=== PATIENT | male | born 1940 | race Caucasian/White ===

== ENCOUNTER 2020-12-04 13:30 | Inpatient (IN) | payer MEDICARE ==
[~2020-12-04] VITALS: Ht 182.9 cm; Wt 103.6 kg
[2020-12-04] MEDS ORDERED: MELATONIN 3 MG TABLET PO PRN (14:15)
[2020-12-04] MEDS ORDERED: ACETAMINOPHEN 500 MG TAB (TYLENOL) PO PRN (14:15)
[2020-12-04] MEDS ORDERED: ENOXAPARIN 40 MG/0.4 ML (LOVENOX) SYR SC SCH (14:15)
[2020-12-04] MEDS ORDERED: LOPERAMIDE 2 MG (IMODIUM) TABLET PO PRN (14:15)
[2020-12-04] MEDS ORDERED: ALPRAZolam 0.25 MG (XANAX) TAB PO PRN (14:15)
[2020-12-04] MEDS ORDERED: CALCIUM CARBONATE 500 MG (TUMS) TAB.CHEW PO PRN (14:15)
[2020-12-04] MEDS ORDERED: BISACODYL 10 MG SUPP (DULCOLAX) PR PRN (14:15)
[2020-12-04] MEDS ORDERED: ONDANSETRON 4 MG (ZOFRAN) ORAL DISSOLVE TAB PO PRN (14:15)
[2020-12-04] MEDS ORDERED: LACTULOSE SYRUP 10GM/15ML (ENULOSE) 30ML UDC PO PRN (14:15)
[2020-12-04] MEDS ORDERED: DOCUSATE SODIUM 100 MG (COLACE) CAP PO PRN (14:15)
[2020-12-04] MEDS ORDERED: guaiFENesin/CODEINE (ROBITUSSIN AC) 10ML UDC PO PRN (14:15)
[2020-12-04] MEDS ORDERED: diphenhydrAMINE 25 MG TAB (BENADRYL) PO PRN (14:15)
[2020-12-04] MEDS ORDERED: FLEET ENEMA ADULT 1 EA BTL PR PRN (14:15)
[2020-12-04] MEDS ORDERED: INSU100V39 SQ (14:24)
[2020-12-04] MEDS ORDERED: ATOR20TA66 PO (14:24)
[2020-12-04] MEDS ORDERED: PANT40TA52 PO (14:24)
[2020-12-04] MEDS ORDERED: ASCO500C17 PO (14:24)
[2020-12-04] MEDS ORDERED: GABA-486 PO (14:24)
[2020-12-04] MEDS ORDERED: SODI104S3 NS (14:24)
[2020-12-04] MEDS ORDERED: APIX5TAB PO (14:24)
[2020-12-04] MEDS ORDERED: INSU100V6 SQ ×2 (14:24)
[2020-12-04] MEDS ORDERED: FLUT9.9S NS (14:24)
[2020-12-04] MEDS ORDERED: MAGIC MOUTHWASH PO (14:24)
[2020-12-04] MEDS ORDERED: SALI473M2 MM (14:24)
[2020-12-04] MEDS ORDERED: OXC5T PO ×2 (14:24)
[2020-12-04] MEDS ORDERED: CHOL10007 PO (14:24)
[2020-12-04] MEDS ORDERED: FINA5TAB6 PO (14:24)
[2020-12-04] MEDS ORDERED: ACET325C7 PO (14:24)
[2020-12-04] MEDS ORDERED: ASPI-999 PO (14:24)
[2020-12-04] MEDS ORDERED: UBID200C31 PO (14:24)
[2020-12-04] MEDS ORDERED: IPRA3AMP31 IH (14:24)
[2020-12-04] MEDS ORDERED: FLUT1BLS3 IH (14:24)
[2020-12-04] MEDS ORDERED: PRD10T PO (14:24)
[2020-12-04] MEDS ORDERED: TMSL.4C PO (14:24)
[2020-12-04] MEDS ORDERED: ACET-2650 PO (14:24)
[2020-12-04 15:22] VITALS: BP 149/81
--- NOTE | 2020-12-04 15:27 | Physical Therapy Evaluation ---
PT Evaluation-General Medical Diagnosis Admission Date 12/04/2020 Medical Diagnosis: critical illness myopathy Onset Date: Dec 04, 2020 Therapy Diagnosis Therapy Diagnosis: weakness; abn gait Precautions Precautions/Isolations: Standard Precautions Referral Physician: Juancho Reason for Referral: Evaluation/Treatment Medical History Pertinent Medical History: COPD, DM, GERD Additional Medical History RLS, HLD, hpoxia, sleep apnea, acute respiratory failure, shoulder fx left recently; TSR R 3-5 years ago. Current History COVID dx 10/08/2020 Lengthy hospital course that started in [facility] and his last destination was LTAC in [place], [place]. Admitted to this facility for continued medical management and skilled therapy services. Reviewed History: Yes Social History Home: Multilevel Current Living Status: Alone Entry Into Home: Stairs With Railing PT Steps Into Home: 6 PT Steps Inside Home: 12 Prior Prior Level of Function SCALE: Activities may be completed with or without assistive devices. 1-Izviueqcsd-tbguouj completes the activity by him/herself with no assistance from a helper. 5-Set-up or Clean-up Assistance-helper sets up or cleans up; patient completes activity. [place] assists only prior to or following the activity. 4-Supervision or Touching Assistance-helper provides verbal cues and/or touching/steadying and/or contact guard assistance as patient completes activity. Assistance may be provided throughout the activity or intermittently. 3-Partial/Moderate Assistance-helper does LESS THAN HALF the effort. [place] lifts, holds or supports trunk or limbs, but provides less than half the effort. 2-Substantial/Maximal Assistance-helper does MORE THAN HALF the effort. [place] lifts or holds trunk or limbs and provides more than half the effort. 5-Fullnsxrk-pnnsil does ALL the effort. Patient does none of the effort to complete the activity. Or, the assistance of 2 or more helpers is required for the patient to complete the activity. If activity was not attempted, code reason: 7-Patient Refused. 9-Not Applicable-not attempted and the patient did not perform the activity before the current illness, exacerbation or injury. 10-Not Attempted due to Environmental Limitations-(lack of equipment, weather restraints, etc.). 88-Not Attempted due to Medical Conditions or Safety Concerns. Bed Mobility: 6 Transfers (B,C,W/C): 6 Gait: 6 Stairs: 6 Indoor Mobility (Ambulation): Independent Stairs: Independent Independent with all mobility, drives, community ambulator. PT Evaluation-Current Subjective Pt reports he is ready to get better and get stronger. Agrees to PT services this date. Alert and able to provide history and details. Denies pain. Reports he does feel tired. Pain Numeric Pain Scale: 0-No Pain Location: No Pain Reported Pt/Family Goals His goal is to return home alone as before. Objective Patient Orientation: Person, Place, Time, Situation Attachments: Oxygen (4 l/min via nasal cannula) ROM/Strength ROM Lower Extremities WFL Strength Lower Extremities B LE strength is grossly 3/5 throughout. Integumentary/Posture Integumentary Refer to nursing notes for full assessment. Bowel Incontinence: No Bladder Incontinence: Yes Posture Symmetrical; slightly rounded shoulders and forward head. Neuromuscular (Tone, Coordination, Reflexes) Intact and functional Sensory Vision: Functional Hearing: Functional Hand Dominance: Right Sensation Right Lower Extremit: Intact Sensation Left Lower Extremity: Intact Transfers Roll Left & Right (QC): 2 Sit to Lying (QC): 3 (min assist to guide) Lying to Sitting/Side of Bed(Q: 2 (mod to max assist to lift torso to sit up. ) Sit to Stand (QC): 1 (Assist of 2 to come to a full stand. ) Chair/Qfa-vv-Kftwr Xfer(QC): 1 (dependent with use of sit to stand lift. ) Toilet Transfer (QC): 1 Car Transfer (QC): 88 (unsafe to attempt due to heavy need for assist. ) Sit to stand x 2; able to stand for about 10 seconds. Gait Does the Patient Walk?: No and Walking Goal IS indicated Mode of Locomotion: Walk Anticipated Mode of Locomotion: Walk Walk 10 feet (QC): 88 Walk 50 ft with 2 Turns(QC): 88 Walk 150 ft (QC): 88 Walking 10ft/uneven surface-QC: 88 Comments/Gait Description Unsafe to attempt ambulation this date. Wheelchair Training Does the Pt Use a Wheelchair?: No Wheel 50 ft with 2 turns (QC): 9 Wheel 150 ft (QC): 9 Stairs 1 Step (curb) (QC): 88 4 Steps (QC): 88 12 Steps (QC): 88 Balance Sitting Static: Fair Standing Static: Poor Standing Dynamic: Poor Picking up an Object (QC): 88 Treatment Co treat with OT due to need for skill of 2 clinicians to manage all needs. Pt requires 2 skilled assist to functional transfers, completion of tasks and management of UE, LE, functional balance and sequencing to complete tasks. OT addressed UE use and placement as well as sequencing as PT addressed LE managment and gross functional balance. Pt transisition supt to from sit; sat EOB for 20 minutes and performed sit to stand tasks; in addition, OT addressed ADL tasks in which PT addressed core balance and tolerance as this was done. Pt in bed post treatment with needs met. O2 sats monitored throughout and he was on 4 l/min with sats greater than 90% throughout Assessment/Needs Pt presents post very lengthy hospital course due to Dx of COVID 19. He has gross strength, balance, activity toelrance deficits and is O2 dependent. He requires heavy assist with all functional mobility and is currently requiring 2 skilled clinicians to complete all tasks. He was indep at [facility]. He is very motivated and did tolerate this date of evaluation and treatment well. He is SOA with exertion, but recovers fairly quickly. He will benefit from skilled therapy services to improve all deficits to allow him to return home as before. He has good potential. Rehab Potential: Good PT Short Term Goals Short Term Goals Time Frame: Dec 11, 2020 Roll Left & Right: 4 Sit to lyin Lying to sitting on side of be: 4 Sit to stand: 3 Chair/jqx-kj-fjmue transfer: 3 Walk 10 feet: 3 Walk 50 feet with two turns: 3 PT [facility] Goals Animal Trainer Goals PT Animal Trainer Goals Time Frame: Jan 01, 2021 Roll Left & Right (QC): 6 Sit to Lying (QC): 6 Lying-Sitting on Side/Bed(QC): 6 Sit to Stand (QC): 6 Chair/Xqq-ra-Twivj Xfer(QC): 6 Toilet Transfer (QC): 6 Car Transfer (QC): 6 Does the Patient Walk: No and Walking Goal IS indicated Walk 10 feet (QC): 6 Walk 50ft with 2 Turns (QC): 6 Walk 150 ft (QC): 6 Walking 10ft on Uneven Surface: 4 1 Step (curb) (QC): 4 4 Steps (QC): 4 12 Steps (QC): 4 Picking up an Object (QC): 5 Does the Pt use WC or Scooter?: No Wheel 50 feet with 2 turns (QC: 9 Wheel 150 feet: 9 PT Plan Problem List Problem List: Activity Tolerance, Functional Strength, Safety, Balance, Gait, Transfer, Bed Mobility Treatment/Plan Treatment Plan: Continue Plan of Care Treatment Plan: Bed Mobility, Education, Functional Activity Erick, Functional Strength, Group Therapy, Gait, Safety, Therapeutic Exercise, Transfers Treatment Duration: Jan 01, 2021 Frequency: At least 5 of 7 days/Wk (IRF) Estimated Hrs Per Day: Other (see notation) Patient and/or Family Agrees t: Yes Due to a COVID -19 viral infection, the patient has deficits that warrant inpatient acute rehab. The patient will clearly benefit from intensive PT and OT; however, due to the patient's observed endurance and therapy considerations, he may not be able to tolerate the full 3 hours of scheduled therapy. Therefore, he will be scheduled for as much therapy as he can tolerate with the intentional rest breaks, shortened sessions, including providing therapy across 6-7 days. As the patient tolerates, the intensity, frequency and duration of his therapy program will be increased. Safety Risks/Education Patient Education: Transfer Techniques, Safety Issues Teaching Recipient: Patient Teaching Methods: Demonstration, Discussion Response to Teaching: Reinforcement Needed Discharge Recommendations Therapy Discharge Recommendati: Post Acute PT Time/GCodes Time In: 1525 Time Out: 1535 (0179-3539 (co treat with OT)) Total Billed Treatment Time: 65 Total Billed Treatment visit EVM 10 FA 55 (co treat with OT) BRITNEY PACHECO PT Dec 04, 2020 15:27
--- NOTE | 2020-12-04 15:29 | Occupational Therapy Eval ---
OT Evaluation-General/PLF Medical Diagnosis Admission Date 12/04/20, 315 Medical Diagnosis: Critical Illness Myopathy Onset Date: Oct 08, 2020 Therapy Diagnosis Therapy Diagnosis: Decreased ADL status; post-COVID Precautions Precautions/Isolations: Standard Precautions Weight Bear Status Weight Bearing Restriction: Weight Bearing/Tolerated Referral Physician: Juancho Referral Reason: Activity Tolerance, Self Care, Evaluation/Treatment, Strengthening/ROM Medical History Additional Medical History COV 19, PNA, COPD, emphysema, RICHY, HTN, DM2, CTS BUE, LLE DVT states tripped/ fell and broke L arm April 2020. Current History Pt dx COVID 10/08, 10/12-10/22 hospitalized, returned home with 5L and ED called with 02 in 50's at home. Hospitalized since, admits to ARU 12/04 Reviewed History: Yes Social History Home: Multilevel Current Living Status: Alone Entry Into Home: Stairs Without Railing Steps Into Home: 6 (no hand rail) Steps Inside Home: 12 states lives alone, has son in town though son is trucking manager and out of town. upstairs bathroom with tub/ shower with sc, no gbs. (12 stairs to get to tub/ shower and to bedroom) ADL-Prior Level of Function SCALE: Activities may be completed with or without assistive devices. 6-Myculdjmwc-ogfjjoe completes the activity by him/herself with no assistance from a helper. 5-Set-up or Clean-up Assistance-helper sets up or cleans up; patient completes activity. [place] assists only prior to or following the activity. 4-Supervision or Touching Assistance-helper provides verbal cues and/or touching/steadying and/or contact guard assistance as patient completes activity. Assistance may be provided throughout the activity or intermittently. 3-Partial/Moderate Assistance-helper does LESS THAN HALF the effort. [place] lifts, holds or supports trunk or limbs, but provides less than half the effort. 2-Substantial/Maximal Assistance-helper does MORE THAN HALF the effort. [place] lifts or holds trunk or limbs and provides more than half the effort. 0-Zipdolmgn-tkjkae does ALL the effort. Patient does none of the effort to complete the activity. Or, the assistance of 2 or more helpers is required for the patient to complete the activity. If activity was not attempted, code reason: 7-Patient Refused. 9-Not Applicable-not attempted and the patient did not perform the activity before the current illness, exacerbation or injury. 10-Not Attempted due to Environmental Limitations-(lack of equipment, weather restraints, etc.). 88-Not Attempted due to Medical Conditions or Safety Concerns. ADL PLOF Comments Pt IND without use of AD. Self Care: Independent Functional Cognition: Independent DME/Equipment Comments Pt has toilet/ sink downstairs bathroom, upstairs bathroom has shower. 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 Drive Self: Yes OT Current Status Subjective Pt AxO, denies pain. Pt is brought in with stretcher, assisted to bed with TD. Pt agrees to tx. Pleasant throughout. OT evaluation: 1434-5802 (10) PT evaluation: [id number] OT/ PT co-treat: [id number] (55): Co-treat rendered at this time. OT addresses UE movement and ADL status, sitting balance, problem solving while PT addresses LE strength/ mobility, fx transfers, and gross motor abilities. Mental Status/Objective Patient Orientation: Person, Place, Situation, Normal For Age Attachments: Oxygen (3.5L) Current Glasses/Contacts: Yes Hearing Aids: No Dentures/Partials: Yes (uppers only- lost lowers. Not wearing at this time.) Hand Dominance: Right Upper Extremity ROM R WFL L: shoulder limited to ~45*, states fall in April resulting in humeral head fx, states never recovered fully. Denies pain. Distal joints WFL. Upper Extremity Coordination WFL BUE Upper Extremity Sensation T/N ulnar distribution (4th/ 5th digits bilaterally) denies CTS sx Upper Extremity Strength WFL RUE L (elbow/ wrist/ hand WFL, shoulder DNT due to limited mobility) Edema: pitting BLE, slight pitting BUE ADL-Treatment Eating (QC): 6 Oral Hygiene (QC): 88 (does not complete due to pt's lack of dentation, denies oral care. ) Shower/Bathe Self (QC): 7 (denies at this time. ) Upper Body Dressing (QC): 7 (denies at this time, though per pt report able to complete with s/u) Lower Body Dressing (QC): 1 (based on pt's ability to sit to stand (max Ax2), pt will require Ax2 (TD) for pant donning if completing in stance. ) On/Off Footwear (QC): 4 (CGA EOB doffing/ donning BLE socks) Toileting Hygiene (QC): 1 (per clinical judgment and need of Ax2 in stance, pt will be TD at this time. ) Other Treatments Pt is weighed and BP assessed: 149/81. Pt completes evaluations as follows: OT evaluation: 2914-7161 (10) PT evaluation: 5267-9091 OT/ PT co-treat: [id number] (55): Co-treat rendered at this time. OT addresses UE movement and ADL status, sitting balance, problem solving while PT addresses LE strength/ mobility, fx transfers, and gross motor abilities. Pt reaches EOB from slight reclined position with CGA. Pt sits EOB for remainder of session, excluding sit to stand attempts. Pt's balance EOB good. Pt able to raise BUE off bed, no LOB. Pt denies dizziness/ pain throughout. Pt completes reaching/ LB dressing tasks as outlined, cues for breathing through nose intermittently through tx. Pt educated on use of AD for energy conservation and breathing cues while in bent position.Pt sit to stand with max A x2 from raised bed, pt stands ~5 sec with max A, returns to sit. Pt SOB, recovers and 02 WFL. Pt sit to stand with max Ax2 once more, attempt side-stepping though able to stand minimally. Pt returns to sit, completes seated activity, sit to supine with SBA. Pt reaches HOB with max Ax2, is introduced to room and therapy roles/ plans for tx. Pt denies needs, call light in reach, pt in bed with HOB elevated and 02 WFL end of tx. Education OT Patient Education: Correct positioning, Disease process, Energy conservation, Modified ADL techniques, Purpose of tx/functional activities, Rehab process, Safety issues, Transfer techniques, Use of adapted equipment Teaching Recipient: Patient Teaching Methods: Demonstration, Discussion Response to Teaching: Verbalize Understanding, Return Demonstration, Reinforcement Needed OT Short Term Goals Short Term Goals Time Frame: Dec 11, 2020 Eatin Oral hygiene: 88 Toileting hygiene: 2 Shower/bathe self: 3 Upper body dressin Lower body dressin Putting on/taking off footwear: 6 OT Finish Off Operator Goals Finish Off Operator Goals Time Frame: Dec 25, 2020 Eating (QC): 6 Oral Hygiene (QC): 6 Toileting Hygiene (QC): 5 Shower/Bathe Self (QC): 5 Upper Body Dressing (QC): 6 Lower Body Dressing (QC): 4 On/Off Footwear (QC): 6 Additional Goals: 1-Demonstrate ADL Tasks, 2-Verbalize Understanding, 3- ImproveStrength/Erick 1=Demonstrate adherence to instructed precautions during ADL tasks. 2=Patient will verbalize/demonstrate understanding of assistive devices/modifi cations for ADL. 3=Patient will improve strength/tolerance for activity to enable patient to perform ADL's. OT Education/Plan Problem List/Assessment Assessment: Decreased Activ Tolerance, Decreased UE Strength, Dependent Transfers, Edema, Impaired Bed Mobility, Impaired Funct Balance, Impaired I ADL's, Impaired Self-Care Skills, Restricted Funct UE ROM Discharge Recommendations Plan/Recommendations: Continue POC Therapy Discharge Recommendati: Scheduled Assistance, Post Acute OT Equpiment Recommendations-D/C: Extended Bath Bench, Rails on Tub/Shower Comment Pt did not d/c with walker. Treatment Plan/Plan of Care Treatment,Training & Education: Yes Patient would benefit from OT for education, treatment and training to promote independence in ADL's, mobility, safety and/or upper extremity function for ADL's. Plan of Care: ADL Retraining, Caregiver Training, Concurrent Therapy, Functional Mobility, Group Exercise/Act as Ind, UE Funct Exercise/Act, UE Neuromus Re-Ed/Coord, W/C Management Training Treatment Duration: Dec 25, 2020 Frequency: Modified Program (IRF) Estimated Hrs Per Day: 1 hour per day Agreement: Yes Rehab Potential: Fair Due to a COVID-19 viral infection, the pt has deficits that warrant inpt acute rehab. The pt will benefit from intensive OT/ PT , however, due to the pt's observed endurance and therapy considerations, he may not be able to tolerate the full 3 hours of scheduled therapy. Therefore, he will be scheduled for as much therapy as he can tolerate with intentional rest breaks, shortened sesion, including providing therapy across 6-7 days. As the pt tolerates, the intensity, frequency, and duration of his therapy program will be increased Time/GCodes Start Time: 15:15 Stop Time: 16:30 Total Time Billed (hr/min): 65 Billed Treatment Time OT evaluation: [id number] (10) PT evaluation: 3260-6495 OT/ PT co-treat: [id number] (55): Co-treat rendered at this time. OT addresses UE movement and ADL status, sitting balance, problem solving while PT addresses LE strength/ mobility, fx transfers, and gross motor abilities. 1, EVM (10) 1, ADL (15), FA 3 (40)= 55 Total: 65 CHAPARRO GOLDEN OTR Dec 04, 2020 15:29
[2020-12-04] MEDS ORDERED: RT-ALBUTEROL/IPRATROPIUM 3 ML (DUONEB) VIAL IH PRN (18:00)
[2020-12-04] MEDS ORDERED: NON-FORMULARY MEDICATION 1 EA EA ([Magic Mouthwash] 5 ML) PO PRN (18:00)
[2020-12-04] MEDS ORDERED: NON-FORMULARY MEDICATION 1 EA EA (Acetaminophen (Tylenol Arthritis) 650 MG) PO PRN (18:00)
--- NOTE | 2020-12-04 18:01 | PM&R Post Admission Assessment ---
PM&R HP Date of Visit: Dec 04, 2020 Time of Visit: 18:30 History of Present Illness CC: Recovery from Covid HPI: This is an 81yoWM who arrives from [facility] after suffering from Covid-19 pneumonia on 10/08 with acute on-chronic heart failure, COPD, RICHY and had pneumonia when IV antibiotics were completed on 11/07/21. He has history also of HTN, DM, Vitamin D deficiency, Herpes oral lesions, and significant compromise Im oxygenation with any type of activity. He remains on 6 liters of oxygen, his prior level of functioning was independent without the use of assistive devices and now his current level of functioning is minimal assistance in bed mobility, max to dependent on transfers and the plan would be to discharge home after recovery. He lives alone and his children are in [place], [place] and he worked on the [employer] for 30 years prior to DC. RT will set up his CPAP. Patient was admitted to the ARU during this COVID-19 emergency. The ARU is the best and most appropriate post-acute care setting for this patient at this current time. Patient meets IRF admission criteria, however will be unable to tolerate 3 hours of therapy/5 days per week. Provide specific plan, such as: This patients individualized intensive rehabilitation plan is to receive 2 hours of therapy per day, by receiving 1 hour of PT and 1 hour of OT 5 out of 7 days per the patients week. As an interdisciplinary team, we will discuss this patients ability to tolerate an increase in the intensity of therapy to be provided throughout the patients stay. Past Lagkysh-Gwdczk-Dvhfkr Hx Past Med/Social Hx: Reviewed Nursing Past Med/Soc Hx, Reviewed and Corrections made Patient Social History Marrital Status: single Employed/Student: retired ([employer] 30 years) Alcohol Use: Denies Use Smoking Status: Former Smoker Past Medical History Respiratory: Pneumonia, Sleep Apnea COVID-19 Currently Using CPAP: Yes Currently Using BIPAP: No Cardiac: High Cholesterol, Hypertension Neurological: Neuropathy Musculoskeletal: Arthritis Endocrine: Diabetes, Insulin dep Prior Level of Function Bed Mobility: 6 Transfers: 6 Gait: 6 Stairs: 6 Indoor Mobility (Ambulation): Independent Stairs: Independent Self Care: Independent Functional Cognition: Independent Occupation: retired. Drive Self: Yes Current Level of Fuctioning Roll Left to Right: 2 Sit to Lyin Lying to Sitting/Side of Bed: 2 (mod to max assist to lift torso to sit up. ) Sit to Stand: 1 (Assist of 2 to come to a full stand. ) Chair/Sfe-bi-Timnw Xfer: 1 (dependent with use of sit to stand lift. ) Car Transfer: 88 (unsafe to attempt due to heavy need for assist. ) Does the Patient Walk: No and Walking Goal IS indicated Mode of Locomotion: Walk Anticipated Mode of Locomotion: Walk Walk 10 feet: 88 Walk 50 ft with 2 Turns: 88 Walk 150 ft: 88 Walking 10ft on uneven surface: 88 Does the Pt Use a Wheelchair: No Wheel 50 ft with 2 turns: 9 Wheel 150 ft: 9 1 Step (curb): 88 4 Steps: 88 12 Steps: 88 Picking up an Object: 88 Eatin Oral Hygiene: 88 (does not complete due to pt's lack of dentation, denies oral care. ) Shower/Bathe Self: 7 (denies at this time. ) Upper Body Dressin (denies at this time, though per pt report able to complete with s/u) Lower Body Dressin (based on pt's ability to sit to stand (max Ax2), pt will require Ax2 (TD) for pant donning if completing in stance. ) On/Off Footwear: 4 (CGA EOB doffing/ donning BLE socks) Toileting Hygiene: 1 (per clinical judgment and need of Ax2 in stance, pt will be TD at this time. ) PM&R Allergy/Meds/Data Review Allergies Coded Allergies: No Allergy Information Available (Unverified , 12/04/20) Home Medications Scheduled Acetaminophen (Tylenol), 650 MG PO TID, (Reported) Apixaban (Eliquis), 5 MG PO BID, (Reported) Ascorbic Acid (Vitamin C), 1,000 MG PO BID, (Reported) Aspirin (Aspirin), 162 MG PO DAILY, (Reported) Atorvastatin Calcium (Atorvastatin Calcium), 20 MG PO 1800, (Reported) Cholecalciferol (Vitamin D3) (Vitamin D3), 25 MCG PO DAILY, (Reported) Finasteride (Finasteride), 5 MG PO DAILY, (Reported) Fluticasone Propionate (Flonase Allergy Relief), 1 SPRAY NS DAILY, (Reported) Fluticasone/Umeclidin/Vilanter (Trelegy Ellipta 100-62.5-25), 1 EACH IH DAILY, (Reported) Gabapentin (Gabapentin), 100 MG PO TID, (Reported) Insulin Glargine,Hum.rec.anlog (Lantus), 20 UNIT SQ HS, (Reported) Insulin Glargine,Hum.rec.anlog (Lantus), 10 UNIT SQ DAILY, (Reported) Insulin Lispro (Insulin Lispro), 0-18 UNIT SQ ACHS, (Reported) Oxycodone Hcl (Oxyir Tablet), 5 MG PO HS, (Reported) Pantoprazole Sodium (Pantoprazole Sodium), 40 MG PO DAILY, (Reported) Prednisone (Prednisone), 40 MG PO DAILY, (Reported) Saliva Substitution Combo No.9 (Biotene), 1 ML MM QID, (Reported) Sodium Chloride ([place]), 1 SPRAY NS TID, (Reported) Tamsulosin HCl (Flomax), 0.4 MG PO DAILY, (Reported) Ubidecarenone (Coenzyme Q-10), 200 MG PO DAILY, (Reported) Scheduled PRN Acetaminophen (Tylenol Arthritis), 650 MG PO Q6H PRN for PAIN-MILD (1-4) OR TEMPATURE, (Reported) Ipratropium/Albuterol Sulfate (Iprat-Albut 0.5-3(2.5) mg/3 ml), 3 ML IH Q6H PRN for SHORTNESS OF BREATH, (Reported) Oxycodone Hcl (Oxyir Tablet), 5 MG PO Q8H PRN for PAIN-SEVERE (8-10), (Reported) [Magic Mouthwash], 5 ML PO QID PRN for MOUTH SORES, (Reported) Current Medications Current Medications Reviewed Review of Systems Constitutional: see HPI, malaise, weakness Respiratory: dyspnea on exertion, short of breath, wheezing Musculoskeletal: back pain, joint pain, muscle pain, muscle stiffness, muscle cramps, muscle twitching, muscle weakness Physical Exam Physical Exam Vital Signs Vital Signs - First Documented 12/04/20 15:22 Temp 36.3 Pulse 106 Resp 18 B/P (MAP) 149/81 (103) Pulse Ox 95 O2 Delivery Nasal Cannula O2 Flow Rate 3.50 Capillary Refill : Height, Weight, BMI Height: '" Weight: lbs. oz. kg; BMI Method: General Appearance: No Apparent Distress, WD/WN, Anxious, Chronically ill, Obese Eyes: Bilateral Eye Normal Inspection, Bilateral Eye PERRL HEENT: PERRL/EOMI, Normal ENT Inspection, Pharynx Normal Neck: Full Range of Motion, Normal Inspection, Non Tender, Supple, Carotid Bruit Respiratory: Chest Non Tender, No Accessory Muscle Use, No Respiratory Distress, Crackles, Decreased Breath Sounds Cardiovascular: Regular Rate, Rhythm, No Gallop, No JVD, No Murmur, Normal Peripheral Pulses Gastrointestinal: Normal Bowel Sounds, No Organomegaly, No Pulsatile Mass, Non Tender, Soft Back: Normal Inspection, No CVA Tenderness, No Vertebral Tenderness Extremity: Normal Capillary Refill, Normal Inspection, Normal Range of Motion, Non Tender, No Calf Tenderness, Pedal Edema Neurologic/Psychiatric: Alert, Oriented x3, No Motor/Sensory Deficits, photoengraving sketch 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 II- XII Norm as Tested, Depressed Affect, Motor Weakness (generalized all extremities 3/5) Skin: Normal Color, Warm/Dry Lymphatic: No Adenopathy PM&R Medical Assessment & Plan REHAB/MEDICAL ASSESSMENT AND PLAN: REHAB IMPAIRMENT GROUP: 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 ETIOLOGIC DIAGNOSIS: 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 The comorbidities that impact the patients function and/or functional outcome by: poor reserve, advanced age, RICHY on CPAP, obesity, lives alone REHAB PLAN: The patient is being admitted to our comprehensive inpatient rehabilitation facility and can tolerate the intensity of service consisting of at least: 180 minutes of therapy a day, 5 out of 7 days a week Rehab treatment will consist of: PT OT will focus on regaining strength and ambulatory skills while monitoring O2 requirements and adjusting to new deficits of ADL performance The patient/family has a good understanding of our discharge process and will benefit from an interdisciplinary inpatient rehabilitation program. The patient has potential to make improvement and is in need of at least two of the following multidisciplinary therapies including but not limited to physical, occupational, speech, and prosthetics and orthotics. Additionally the patient will need services from respiratory, nutritional services, wound care, psychology, etc. (Customize this to each patient). Given the patients complex condition and risk of further medical complications, rehabilitation services cannot be safely or effectively provided at a lower level of care such as a detention facility. BARRIERS TO DISCHARGE: Lives alone ESTIMATED LOS: 21 days DISPOSITION: Home RELEVANT CHANGES SINCE PREADMISSION SCREENING: I have compared the patients medical and functional status at the time of the preadmission screening and there are: no changes PROGNOSIS: Good REHABILITATION GOALS: 1. PT OT will focus on regaining strength and ambulatory skills while monitoring O2 requirements and adjusting to new deficits of ADL performance All the above goals were reviewed with the patient and he/she is in agreement. By signing this document, I acknowledge that I have personally performed a full physical examination on this patient within 24 hours of admission to this inpatient rehabilitation facility and have determined the patient to be able to tolerate the above course of treatment at an intensive level for a reasonable period of time. I will be completing a detailed individualized Plan of Care for this patient by day #4 of the patients stay based upon the Preadmission Screen, the Post-Admission Evaluation, and the therapy evaluations. Admission Dx/Comorbidities: (1) COVID-19 ICD Codes: U07.1 - COVID-19 (2) RICHY on CPAP ICD Codes: G47.33 - Obstructive sleep apnea (adult) (pediatric); Z99.89 - Dependence on other enabling machines and devices (3) Obesity ICD Codes: E66.9 - Obesity, unspecified (4) Diabetes ICD Codes: E11.9 - Type 2 diabetes mellitus without complications (5) Hypertension ICD Codes: I10 - Essential (primary) hypertension (6) Edema ICD Codes: R60.9 - Edema, unspecified (7) Neuropathy ICD Codes: G62.9 - Polyneuropathy, unspecified (8) Anemia ICD Codes: D64.9 - Anemia, unspecified (9) Advanced age ICD Codes: R54 - Age-related physical debility 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
[2020-12-04] MEDS ORDERED: MAGIC MOUTHWASH (ADULT) PO PRN ×4 (19:45)
[2020-12-04] MEDS: DOCUSATE SODIUM 100 MG (COLACE) CAP PO SCH (20:49)
[2020-12-04] MEDS: GABAPENTIN 100 MG (NEURONTIN) CAP PO SCH (20:49)
[2020-12-04] MEDS: polyethylene glycoL POWDER 17 GM (MIRALAX) PACK PO SCH (20:49)
[2020-12-04] MEDS: SENNA W/DOCUSATE (SENOKOT S) TABLET PO SCH (20:49)
[2020-12-04] MEDS: APIXABAN 5 MG (ELIQUIS) TABLET PO SCH (20:49)
[2020-12-04] MEDS: ACETAMINOPHEN 325 MG TABLET PO SCH (20:50)
[2020-12-04] MEDS: inSUlin ASPART (NovoLOG) 1 UNIT/0.01 ML (CHARGE PER UNIT) SC SCH (20:51)
[2020-12-04] MEDS: SALINE NASAL SPRAY (OCEAN) 45 ML BTL NS SCH (20:53)
[2020-12-04] MEDS: SALIVA STIMULANT MOUTH SPRAY (BIOTENE) 1.5 OZ MM SCH (20:53)
[2020-12-04] MEDS ORDERED: NON-FORMULARY MEDICATION 1 EA EA (Acetaminophen (Tylenol) 650 MG) PO SCH (21:00)
[2020-12-04] MEDS ORDERED: NON-FORMULARY MEDICATION 1 EA EA (Insulin Glargine,Hum.rec.anlog (Lantus) 20 UNIT) SQ SCH (21:00)
[2020-12-04] MEDS ORDERED: NON-FORMULARY MEDICATION 1 EA EA (Ascorbic Acid (Vitamin C) 1,000 MG) PO SCH (21:00)
[2020-12-04] MEDS ORDERED: SALIVA SUBSTITUTION COMBO NO 9 MM SCH (21:00)
[2020-12-05] MEDS: inSUlin ASPART (NovoLOG) 1 UNIT/0.01 ML (CHARGE PER UNIT) SC SCH ×4 (05:22→21:17)
[2020-12-05 05:56] VITALS: BP 132/74
[2020-12-05 07:03] LABS: BASOPHILS % (AUTO) 0 % (0-10); EOSINOPHILS % (AUTO) 0 % (0-10); HEMATOCRIT 35 % (40-54); HEMOGLOBIN 11.7 g/dL (13.3-17.7); LYMPHOCYTES % (AUTO) 5 % (12-44); MEAN CORPUSCULAR HEMOGLOBIN 29 pg (25-34); MEAN CORPUSCULAR HGB CONC 34 g/dL (32-36); MEAN CORPUSCULAR VOLUME 88 fL (80-99); MEAN PLATELET VOLUME 9.7 fL (9.0-12.2); MONOCYTES # (AUTO) 1.2 10^3/uL (0.0-1.0); MONOCYTES % (AUTO) 6 % (0-12); NEUTROPHILS # (AUTO) 18.5 10^3/uL (1.8-7.8); NEUTROPHILS % (AUTO) 86 % (42-75); PLATELET COUNT 174 10^3/uL (130-400); WHITE BLOOD COUNT 21.5 10^3/uL (4.3-11.0)
[2020-12-05 07:28] LABS: ALANINE AMINOTRANSFERASE 65 U/L (0-55); ALBUMIN 3.2 GM/DL (3.2-4.5); ALKALINE PHOSPHATASE 85 U/L (40-136); BILIRUBIN,TOTAL 0.8 MG/DL (0.1-1.0); BUN/CREATININE RATIO 35; CARBON DIOXIDE 25 MMOL/L (21-32); CHLORIDE 98 MMOL/L (98-107); CREATININE SERUM 0.79 MG/DL (0.60-1.30); GFR ESTIMATED > 60; GLUCOSE 108 MG/DL (70-105); POTASSIUM 4.3 MMOL/L (3.6-5.0); SODIUM 133 MMOL/L (135-145); TOTAL PROTEIN 5.5 GM/DL (6.4-8.2)
[2020-12-05 07:34] LABS: BAND NEUTROPHILS 0 %; BASOPHILS % (MANUAL) 0 %; EOSINOPHILS % (MANUAL) 0 %; LYMPHOCYTES % (MANUAL) 4 %; MONOCYTES % (MANUAL) 6 %; NEUTROPHILS % (MANUAL) 90 %
[2020-12-05 07:35] LABS: ANISOCYTOSIS MODERATE; POLYCHROMASIA SLIGHT
[2020-12-05] MEDS: FINASTERIDE (PROSCAR) 5 MG TAB PO SCH (08:42)
[2020-12-05] MEDS: predniSONE 10 MG TAB PO SCH (08:42)
[2020-12-05] MEDS: PANTOPRAZOLE 40 MG (PROTONIX) TAB PO SCH (08:42)
[2020-12-05] MEDS: GABAPENTIN 100 MG (NEURONTIN) CAP PO SCH ×3 (08:42→20:23)
[2020-12-05] MEDS: TAMSULOSIN 0.4 MG (FLOMAX) CAP PO SCH (08:42)
[2020-12-05] MEDS: ASCORBIC ACID (VIT C) 500 MG TABLET PO SCH ×2 (08:42→17:01)
[2020-12-05] MEDS: VITAMIN D3 25 MCG (1,000 UNITS) TABLET PO SCH (08:43)
[2020-12-05] MEDS: ASPIRIN 81 MG CHEW (CHILDREN'S ASA) PO SCH (08:43)
[2020-12-05] MEDS: APIXABAN 5 MG (ELIQUIS) TABLET PO SCH ×2 (08:43→20:20)
[2020-12-05] MEDS: ACETAMINOPHEN 325 MG TABLET PO SCH ×3 (08:43→20:20)
[2020-12-05] MEDS: SALINE NASAL SPRAY (OCEAN) 45 ML BTL NS SCH ×3 (08:44→20:22)
[2020-12-05] MEDS: SALIVA STIMULANT MOUTH SPRAY (BIOTENE) 1.5 OZ MM SCH ×4 (08:44→20:22)
[2020-12-05] MEDS ORDERED: NON-FORMULARY MEDICATION 1 EA EA (Fluticasone/Umeclidin/Vilanter (Trelegy Ellipta 100-62.5 IH SCH (09:00)
[2020-12-05] MEDS ORDERED: UBIDECARENONE 200 MG PO SCH (09:00)
[2020-12-05] MEDS ORDERED: NON-FORMULARY MEDICATION 1 EA EA (Cholecalciferol (Vitamin D3) (Vitamin D3) 25 MCG) PO SCH (09:00)
[2020-12-05] MEDS ORDERED: NON-FORMULARY MEDICATION 1 EA EA (Fluticasone Propionate (Flonase Allergy Relief) 1 SPRAY) NS SCH (09:00)
[2020-12-05] MEDS ORDERED: NON-FORMULARY MEDICATION 1 EA EA (Insulin Glargine,Hum.rec.anlog (Lantus) 10 UNIT) SQ SCH (09:00)
--- NOTE | 2020-12-05 09:02 | Occupational Ther Daily Note ---
OT Current Status-Daily Note Subjective Pt fatigued/ tired. States slept poorly, states has had hard time getting rest. Pt oriented, agrees to tx. Denies pain. Pt describes home in more detail, stating he would like to place a ramp to front entrance, states he has power chair and w/c and plans to get a "four robles" to go up the ramp. Pt states in the home there is a landing which he must manage, but plans to get a chair lift for the 12 stairs getting upstairs. Pt states able to manage on 1st floor, sleeping in chair/ taking sponge baths in half bath, until able to get chair lift. OT/ PT co-treat with OT addressing UE movement, problem solving, sequencing, ADLs and PT addressing LE movement, fx transfers, fx endurance and activity tolerance. Mental Status/Objective Patient Orientation: Person, Place, Situation, Normal For Age Attachments: Oxygen (3.5L) ADL-Treatment Therapy Code Descriptions/Definitions Functional [place] Measure: 0=Not Assessed/NA 4=Minimal Assistance 1=Total Assistance 5=Supervision or Setup 2=Maximal Assistance 6=Modified [place] 3=Moderate Assistance 7=Complete IndependenceSCALE: Activities may be completed with or without assistive devices. 6-Psbdobbhkr-iccsioq completes the activity by him/herself with no assistance from a helper. 5-Set-up or Clean-up Assistance-helper sets up or cleans up; patient completes activity. Spangler assists only prior to or following the activity. 4-Supervision or Touching Assistance-helper provides verbal cues and/or touching/steadying and/or contact guard assistance as patient completes activity. Assistance may be provided throughout the activity or intermittently. 3-Partial/Moderate Assistance-helper does LESS THAN HALF the effort. Spangler lifts, holds or supports trunk or limbs, but provides less than half the effort. 2-Substantial/Maximal Assistance-helper does MORE THAN HALF the effort. Spangler lifts or holds trunk or limbs and provides more than half the effort. 0-Jvzysefcx-pyaljs does ALL the effort. Patient does none of the effort to complete the activity. Or, the assistance of 2 or more helpers is required for the patient to complete the activity. If activity was not attempted, code reason: 7-Patient Refused. 9-Not Applicable-not attempted and the patient did not perform the activity before the current illness, exacerbation or injury. 10-Not Attempted due to Environmental Limitations-(lack of equipment, weather restraints, etc.). 88-Not Attempted due to Medical Conditions or Safety Concerns. Eating (QC): 6 (IND with modified diet due to no dentation) Oral Hygiene (QC): 7 (denies.) Bathing Location: L Arm, R Arm, L Upper Leg, R Upper Leg, Chest, Abdomen, Perineal Area Shower/Bathe Self (QC): 1 (TD due to need of Ax2 for fx transfers/ sit to stand for bottom care. ) Upper Body Dressing (QC): 5 (s/u, pt requires increased time, able to complete with limited L UE shoulder flexion. ) Lower Body Dressing (QC): 1 (TD due to need of Ax2 for fx transfers/ sit to st and for pulling over hips. Pt able to thread BLE pant legs with use of tick sewer intermittently.) On/Off Footwear: 2 (max A on this date due to fatigue.) Toileting Hygiene (QC): 1 (TD due to need of Ax2 for fx transfers/ sit to stand for bottom care. ) Toilet Transfer (QC): 1 (TD due to need of Ax2 for use of sit to stand transfer machine. Pt denies need for BM at this time. ) Other Treatment Pt requires increased time for all tasks and cues for breathing through nostrils throughout session. Pt completes sponge bath/ dressing as outlined. Pt requires rest breaks after each body part/ after dressing each area to catch breath, fatigues quickly. Pt sit to stand with Ax3 (max Ax2) to reach standing for bottom care/ pant management. Pt sits, 02 ~90% and able to recover to mid 90's fairly quickly. Pt very fatigued, encouraged to rest/ in bed. Sit to stand machine utilized for transfer with TD, bottom care completed more thoroughly in sit to stand machine, nursing observes bottom, pt bed mob to supine with increased time. Positioned for comfort, all needs met, call light in reach. Education OT Patient Education: Correct positioning, Energy conservation, Modified ADL techniques, Purpose of tx/functional activities, Safety issues, Transfer techniques Teaching Recipient: Patient Teaching Methods: Demonstration, Discussion Response to Teaching: Verbalize Understanding, Return Demonstration OT Short Term Goals Short Term Goals Time Frame: Dec 11, 2020 Eatin Oral hygiene: 88 Toileting hygiene: 2 Shower/bathe self: 3 Upper body dressin Lower body dressin Putting on/taking off footwear: 6 OT Product Accountant Goals Correction Goals Time Frame: Dec 25, 2020 Eating (QC): 6 Oral Hygiene (QC): 6 Toileting Hygiene (QC): 5 Shower/Bathe Self (QC): 5 Upper Body Dressing (QC): 6 Lower Body Dressing (QC): 4 On/Off Footwear (QC): 6 Additional Goals: 1-Demonstrate ADL Tasks, 2-Verbalize Understanding, 3- ImproveStrength/Erick 1=Demonstrate adherence to instructed precautions during ADL tasks. 2=Patient will verbalize/demonstrate understanding of assistive devices/modifi cations for ADL. 3=Patient will improve strength/tolerance for activity to enable patient to perform ADL's. OT Education/Plan Problem List/Assessment Assessment: Decreased Activ Tolerance, Decreased UE Strength, Dependent Transfers, Edema, Impaired Bed Mobility, Impaired Funct Balance, Impaired I ADL's, Impaired Self-Care Skills, Restricted Funct UE ROM Discharge Recommendations Plan/Recommendations: Continue POC Therapy Discharge Recommendati: Intermittent Supervision, Home & Family, Post Acute OT Treatment Plan/Plan of Care Treatment,Training & Education: Yes Patient would benefit from OT for education, treatment and training to promote independence in ADL's, mobility, safety and/or upper extremity function for ADL's. Plan of Care: ADL Retraining, Caregiver Training, Concurrent Therapy, Functional Mobility, Group Exercise/Act as Ind, UE Funct Exercise/Act, UE Neuromus Re-Ed/Coord, W/C Management Training Treatment Duration: Dec 25, 2020 Frequency: Modified Program (IRF) Estimated Hrs Per Day: 1 hour per day Agreement: Yes Rehab Potential: Good Time/GCodes Start Time: 08:00 Stop Time: 09:00 Total Time Billed (hr/min): 60 Billed Treatment Time OT/ PT co-treat with OT addressing UE movement, problem solving, sequencing, ADLs and PT addressing LE movement, fx transfers, fx endurance and activity tolerance. 1, ADL 4 (60) CHAPARRO GOLDEN OTR Dec 05, 2020 09:02
[2020-12-05] MEDS: DOCUSATE SODIUM 100 MG (COLACE) CAP PO SCH ×2 (09:43→20:16)
[2020-12-05] MEDS: polyethylene glycoL POWDER 17 GM (MIRALAX) PACK PO SCH ×2 (09:43→20:16)
[2020-12-05] MEDS: SENNA W/DOCUSATE (SENOKOT S) TABLET PO SCH ×2 (09:45→20:16)
--- NOTE | 2020-12-05 09:58 | Physical Therapy Daily Note ---
PT Daily Note-Current Subjective Pt reports he does not think he slept much last night. Agrees to PT this date. Post treatment, reports he feels sleepy. Wants to lie down for a while. Mental Status Patient Orientation: Person, Place, Time, Situation Transfers SCALE: Activities may be completed with or without assistive devices. 8-Voygqiqwks-rpfpdsp completes the activity by him/herself with no assistance from a helper. 5-Set-up or Clean-up Assistance-helper sets up or cleans up; patient completes activity. Robinson assists only prior to or following the activity. 4-Supervision or Touching Assistance-helper provides verbal cues and/or touching/steadying and/or contact guard assistance as patient completes activity. Assistance may be provided throughout the activity or intermittently. 3-Partial/Moderate Assistance-helper does LESS THAN HALF the effort. Robinson lifts, holds or supports trunk or limbs, but provides less than half the effort. 2-Substantial/Maximal Assistance-helper does MORE THAN HALF the effort. Robinson lifts or holds trunk or limbs and provides more than half the effort. 3-Lhbgxqagp-ihrjgz does ALL the effort. Patient does none of the effort to complete the activity. Or, the assistance of 2 or more helpers is required for the patient to complete the activity. If activity was not attempted, code reason: 7-Patient Refused. 9-Not Applicable-not attempted and the patient did not perform the activity before the current illness, exacerbation or injury. 10-Not Attempted due to Environmental Limitations-(lack of equipment, weather restraints, etc.). 88-Not Attempted due to Medical Conditions or Safety Concerns. Sit to Lying (QC): 2 (assist with both legs to lie dwn. ) Sit to Stand (QC): 1 (assist of 2 to stand during ADL care and unable to come to a full stand from the chair. Sit to stand lift to return to bed. ) Pt assists with transition to stand up but needs 2 person assist or mechanical lift. Treatments OT/ PT co-treat with OT addressing UE movement, problem solving, sequencing, ADLs and PT addressing LE movement, fx transfers, fx endurance and activity tolerance. Pt completed ADL care with OT addressing UE use and performance of ADL's; PT addressed core strength and mobility, seated balance, standing activies and gross LE muscle strengthening. Pt in bed post treatment, via sit to stand lift. During treatment session, pt performed sit to stand with assist of 2 and used the walker to pull up; pt able to sit EOB with min assist for approx 10 minutes iw work on core strength and upright functional activity tolerance. Assessment Current Status: Good Progress Pt requires frequent rest breaks; becomes SOA but recovers quickly; sats ranged from 89-95% throughout. Pt very motivated. Difficulty with sit to stand from standard surface; unable to perform SPT, requires mechanical lift. PT Short Term Goals Short Term Goals Time Frame: Dec 11, 2020 Roll Left & Right: 4 Sit to lyin Lying to sitting on side of be: 4 Sit to stand: 3 Chair/zjl-bk-ztgyl transfer: 3 Walk 10 feet: 3 Walk 50 feet with two turns: 3 PT Sales Teacher Goals Detention Goals PT Detention Goals Time Frame: Jan 01, 2021 Roll Left & Right (QC): 6 Sit to Lying (QC): 6 Lying-Sitting on Side/Bed(QC): 6 Sit to Stand (QC): 6 Chair/Kkp-fo-Satyi Xfer(QC): 6 Toilet Transfer (QC): 6 Car Transfer (QC): 6 Does the Patient Walk: No and Walking Goal IS indicated Walk 10 feet (QC): 6 Walk 50ft with 2 Turns (QC): 6 Walk 150 ft (QC): 6 Walking 10ft on Uneven Surface: 4 1 Step (curb) (QC): 4 4 Steps (QC): 4 12 Steps (QC): 4 Picking up an Object (QC): 5 Does the Pt use WC or Scooter?: No Wheel 50 feet with 2 turns (QC: 9 Wheel 150 feet: 9 PT Plan Problem List Problem List: Activity Tolerance, Functional Strength, Safety, Balance, Gait, Transfer, Bed Mobility Treatment/Plan Treatment Plan: Continue Plan of Care Treatment Plan: Bed Mobility, Education, Functional Activity Erick, Functional Strength, Group Therapy, Gait, Safety, Therapeutic Exercise, Transfers Treatment Duration: Jan 01, 2021 Frequency: At least 5 of 7 days/Wk (IRF) Estimated Hrs Per Day: Other (see notation) Patient and/or Family Agrees t: Yes Safety Risks/Education Patient Education: Transfer Techniques Teaching Recipient: Patient Teaching Methods: Demonstration, Discussion Response to Teaching: Reinforcement Needed Time/GCodes Time In: 800 Time Out: 900 Total Billed Treatment Time: 60 Total Billed Treatment visit FA 60 (co treat with OT) BRITNEY PACHECO PT Dec 05, 2020 09:58
[2020-12-05] MEDS: FLUTICASONE NASAL SPRAY (FLONASE) 16 GM BTL NS SCH (10:00)
--- NOTE | 2020-12-05 10:21 | ST Cognitive Linguistic Eval ---
Speech Evaluation-General Medical Diagnosis critical illness myopathy Onset Date: Dec 04, 2020 Therapy Diagnosis Therapy Diagnosis: Cognitive-communication Referral Referring Physician: Dr. Dawkins Medical History Pertinent Medical History: COPD, DM, GERD Reviewed History: Yes Social History Current Living Status: Alone Speech PLF-Current Status Prior Level of Function Patient lived at home alone where he was independent for his daily needs. Subjective Patient was resting in his bed following his PT and OT session. Patient was cooperative with the cognitive assessment. Language Eval: Auditory Comprehends Simple Yes/No Ques: Functional Indent/Objects Multiple Davis: Functional Ident/Pics in Multiple Davis: Functional Follows 1-Step Commands: Functional Follows Complex Directions: Functional Follows General Conversations: Functional Language Eval: Verbal Language Completes Spontaneous Greeting: Functional Produces Auto, Serial Info: Functional Imitates Simple Words/Phrases: Functional Word Finding: Functional Requests Basic Needs: Functional States Basic Personal Info: Functional Expresses Complex Ideas: Functional Objective Cognitive Domain Attention: WNL Memory: WNL Problem Solving: Functional Executive Functions: WNL Visuospatial Skills: WNL Composite Severity Rating: WNL Clock Drawing Severity Rating: WNL Objective Formal/Standardized Tests [facility] Mental Status ([facility]) Results 28/30, within normal range of function Oral Motor/Speech Production Within Normal Limits Impression Patient was admitted to the ARU due to debility from COVID since September,. Patient was given the SLUMS at bedside with a score of 28/30 obtained. Patient's score is within normal range of function and does not indicate the need for further ST services. Speech Patient Assess Expression of Ideas/Wants: Expression (4) Understanding Verbal Content: Understands (4) Brief Interview-Mental Status: Yes Repetition of Three Words: Three (3) Temporal Orientation: Year: Correct (3) Temporal Orientation: Month: Accurate within 5 days(2) Temporal Orientation: Day: Correct (1) Recall : Wear to say "Sock": Yes, no cue required (2) Recall : Color: Yes, after cueing (1) Recall : Bed: Yes, no cue required (2) Memory/Recall Ability: Current season, That he or she is in a hsp/hsp unit Speech-Plan Patient/Family Goals Patient/Family Goals: Patient plans on returning to his home upon discharge. Treatment Plan Speech Therapy Treatment Plan: Discontinue ST Treatment Duration: Dec 05, 2020 Frequency: 1 time per week Estimated Hrs Per Day: .25 hour per day Rehab Potential: Good Barriers to Learning: None identified Pt/Family Agrees to Plan: Yes Safety Risks/Education Teaching Recipient: Patient Teaching Methods: Discussion Response to Teaching: Verbalize Understanding Education Topics Provided: Safety within his room, communication of wants/needs Time Speech Therapy Time In: 09:30 Speech Therapy Time Out: 09:45 Total Billed Time: 15 Billed Treatment Time 1, AMANDANDCOMP ALEXEY Malone Dec 05, 2020 10:21
--- NOTE | 2020-12-05 10:27 | Individualized Plan of Care ---
Individualized Plan of Care Rehab Nursing IPOC Order Admission Date Dec 04, 2020 at 15:15 Current Orders Orders Admission Order(Inpt,Obs,Sdc) (12/04/20 14:15) Vital Signs: Per Unit Policy ( 08,16,00 (12/04/20 14:15) Dexter Duong (12/04/20 14:15) Sequential Compression Device Q4H (12/04/20 14:15) Linen Controller-Inpt Rehab Con (12/04/20 14:15) Rehab Nursing Orders-Ipoc (12/04/20 14:15) Physical Therapy Rehab Orders (12/04/20 14:15) Occupational Therapy Rehab Ord (12/04/20 14:15) Speech Therapy Rehab Orders (12/04/20 14:15) Cbc With Automated Diff (12/05/20 06:00) Comprehensive Metabolic Panel (12/05/20 06:00) General/Regular (12/04/20 Lunch) Intake & Output , (12/04/20 14:15) Precautions (Aru) (12/04/20 14:15) Weekly Weight WEEK (12/04/20 14:15) Rehab-Intensity Of Therapy (12/04/20 14:15) Initiate Admission Nursing Pro .admission (12/04/20 14:15) Acetaminophen Tablet (Tylenol Tablet) (12/04/20 14:15) Alprazolam Tablet (Xanax Tablet) (12/04/20 14:15) Calcium Carbonate Chew Tablet (Antacid C (12/04/20 14:15) Diphenhydramine Tablet (Benadryl Tablet) (12/04/20 14:15) Docusate Sodium Capsule (Colace Capsule) (12/04/20 21:00) Docusate Sodium Capsule (Colace Capsule) (12/04/20 14:15) Bisacodyl Suppository (Dulcolax Supposit (12/04/20 14:15) Lactulose Oral Solution (Enulose Oral So (12/04/20 14:15) Na Phos/Na Biphos Enema (Fleet Enema Fercho (12/04/20 14:15) Guaifenesin/Codeine Syrup (Robitussin Ac (12/04/20 14:15) Loperamide Tablet (Imodium Tablet) (12/04/20 14:15) Enoxaparin Injection (Lovenox Injection) (12/04/20 14:15) Melatonin Tablet (Melatonin Tablet) (12/04/20 14:15) Polyethylene Glycol Powder Pkt (Miralax (12/04/20 21:00) Ondansetron Oral Dissolve Tab (Zofran (12/04/20 14:15) Senna S Tablet (Senokot S Tablet) (12/04/20 21:00) Initiate Admission Nursing Pro .admission (12/04/20 14:15) Admission Arrival Bed Request (12/04/20 15:22) Communication For Respiratory (12/04/20 15:50) Patient Visit (12/04/20 ) Pt Eval Moderate Complexity (12/04/20 ) Functional Activities, Ea 15 (12/04/20 ) Apixaban Tablet (Eliquis Tablet) (12/04/20 21:00) Aspirin Chewable Tablet (Baby Aspirin Ch (12/05/20 09:00) Atorvastatin Tablet (Lipitor Tablet) (12/04/20 18:00) Finasteride Tablet (Proscar Tablet) (12/05/20 09:00) Gabapentin Capsule/Tablet (Neurontin Cap (12/04/20 21:00) Albuterol/Ipra Inhalation Soln (Duoneb I (12/04/20 18:00) Oxycodone Immediate Rel Tablet (Oxyir Ta (12/04/20 21:00) Oxycodone Immediate Rel Tablet (Oxyir Ta (12/04/20 18:00) Pantoprazole Tablet (Protonix Tablet) (12/05/20 09:00) Prednisone Tablet (Deltasone Tablet) (12/05/20 08:00) Saline Nasal [place] ([place] Nasal [place]) (12/04/20 21:00) Tamsulosin Capsule (Flomax Capsule) (12/05/20 09:00) (Nf) Acetaminophen (Tylenol Arthritis) (12/04/20 18:00) (Nf) Acetaminophen (Tylenol) (12/04/20 21:00) (Nf) Ascorbic Acid (Vitamin C) (12/04/20 21:00) (Nf) Cholecalciferol (Vitamin D3) (Vitam (12/05/20 09:00) (Nf) Fluticasone Propionate (Flonase All (12/05/20 09:00) (Nf) Fluticasone/Umeclidin/Vilanter (Werner (12/05/20 09:00) (Nf) Insulin Glargine,Hum.Rec.Anlog (Luis (12/05/20 09:00) (Nf) Insulin Glargine,Hum.Rec.Anlog (Luis (12/04/20 21:00) (Nf) Saliva Substitution Combo No.9 (Bio (12/04/20 21:00) (Nf) Ubidecarenone (Coenzyme Q-10) (12/05/20 09:00) (Nf) [Magic Mouthwash] (12/04/20 18:00) Accucheck Achs ACHS (12/04/20 18:00) Insulin Aspart (Novolog) (Novolog (Charg (12/04/20 21:00) Insulin Determir (Per Unit) (Levemir (Pe (12/04/20 21:00) Insulin Determir (Per Unit) (Levemir (Pe (12/05/20 09:00) Acetaminophen Tablet/Caplet (Tylenol T (12/04/20 21:00) Ascorbic Acid Tablet (Vitamin C Tablet) (12/05/20 08:00) Cholecalciferol Capsule/Tablet (Vitamin (12/05/20 09:00) Fluticasone Nasal [place] (Flonase Nasal S (12/05/20 09:00) Saliva Stimulant Mouth [place] (Biotene Mo (12/04/20 21:00) Nystatin Susp For Compounding (Mycostati (12/04/20 19:45) Manual Differential (12/05/20 06:50) Procalcitonin (Pct) (12/05/20 08:23) Chest 1 View, Ap/Pa Only (12/05/20 08:23) Patient Visit (12/05/20 ) Speech Sound Lang Comp (12/05/20 ) Patient Visit (12/05/20 ) Functional Activities, Ea 15 (12/05/20 ) Patient Visit (12/05/20 ) Exercise Therap, Ea 15 Min (12/05/20 ) Rehab Nursing Orders: Ongoing Assess. of Cognitive Status, Ongoing Assess. of Function Status, Bladder Management, Bladder Scan, Bladder Training, Bowel Management, Bowel Training, Disease Management & Educaiton, DVT Prophylaxis, Fall Prevention, Fluid/Electrolyte/Nutrition Mgmt, Infection Prevention, Medication Management & Education, Management of Risks & Complications, Management of Skin Intergrity, Nutrition Management, Pain Management, Patient/F amily Support, Safety Management Intensity of Therapy to be met Patient to be seen: 15 hrs over 7 cons. days PT IPOC Problem List: Activity Tolerance, Functional Strength, Safety, Balance, Gait, Transfer, Bed Mobility Treatment Plan: Continue Plan of Care Bed Mobility, Education, Functional Activity Erick, Functional Strength, Group Therapy, Gait, Safety, Therapeutic Exercise, Transfers Treatment Duration: Jan 01, 2021 Frequency: At least 5 of 7 days/Wk (IRF) Estimated Hrs Per Day: Other (see notation) OT IPOC Problems: Decreased Activ Tolerance, Decreased UE Strength, Dependent Transfers, Edema, Impaired Bed Mobility, Impaired Funct Balance, Impaired I ADL's, Impaired Self-Care Skills, Restricted Funct UE ROM OT Treatment, Training and Edu: Yes Plan of Care: ADL Retraining, Caregiver Training, Concurrent Therapy, Functional Mobility, Group Exercise/Act as Ind, UE Funct Exercise/Act, UE Neuromus Re-Ed/Coord, W/C Management Training Treatment Duration: Dec 25, 2020 Frequency: Modified Program (IRF) Estimated Hrs Per Day: [address] IPOC Speech Therapy Treatment Plan: Discontinue ST Treatment Duration: Dec 05, 2020 Frequency: 1 time per week Estimated Hrs Per Day: .25 hour per day Linen Controller/Case Mgmt Linen Controller/Case Managemen: Discharge Planning Dietitian/Learning Services Coordinator Dietitian/Learning Services Coordinator to monitor nutritional status and make changes and/or recommendations as needed and work with speech pathology on dietary upgrades as the occur. Physician IPOC Medical Issues being managed closely and that require the 24 hour availability of a physician: Recent catastrophic COVID PNA with respiratory failure now with severe myopathy and hypoxia and high risk for decompensation will need close 24/7 physician supervision Medical Issues: Bowel/Bladder Function, DVT Prophylaxis, Falls Precautions, Fluid/Electrolyte/Nutrition Balance, Infection Protection, Pain Management, Swallowing Precautions Brief Synthesis of Preadmission Screen, Post-Admission Evaluation, and Therapy Evaluations: PT OT will focus on regaining strength and building stamina with hopes to improve stamina and teach energy conservation Medical Prognosis: Guarded Anticipated Length of Stay: 21 days DEANNA BOO DO Dec 05, 2020 10:27
--- NOTE | 2020-12-05 10:27 | PM&R Progress Note ---
Subjective HPI/CC On Admission Date Seen by Provider: Dec 05, 2020 Time Seen by Provider: 10:30 Subjective/Events-last exam 12/05/20: Patient doing well Worn out from fatigue Sugars are ok No pain reported Tachycardic so consulting Dr Tere Mckeon was accidently pulled out so need a new one placed Checked meds and labs Review of Systems General: Fatigue, Malaise Pulmonary: Dyspnea, Cough Neurological: Weakness, Incoordination Objective Exam Vital Signs Vital Signs Date Time Temp Pulse Resp B/P (MAP) Pulse Ox O2 Delivery O2 Flow Rate FiO2 12/06/20 05:03 36.2 75 20 142/75 (97) 94 Nasal Cannula 4.00 Capillary Refill : General Appearance: No Apparent Distress, WD/WN, Anxious, Chronically ill, Obese HEENT: PERRL/EOMI, Normal ENT Inspection, Pharynx Normal Neck: Full Range of Motion, Normal Inspection, Non Tender, Supple, Carotid Bruit Respiratory: Chest Non Tender, No Accessory Muscle Use, No Respiratory Distress, Crackles, Decreased Breath Sounds Cardiovascular: Regular Rate, Rhythm, No Gallop, No JVD, No Murmur, Normal Peripheral Pulses Gastrointestinal: Normal Bowel Sounds, No Organomegaly, No Pulsatile Mass, Non Tender, Soft Back: Normal Inspection, No CVA Tenderness, No Vertebral Tenderness Extremity: Normal Capillary Refill, Normal Inspection, Normal Range of Motion, Non Tender, No Calf Tenderness, Pedal Edema Neurologic/Psychiatric: Alert, Oriented x3, No Motor/Sensory Deficits, short order cook II- XII Norm as Tested, Depressed Affect, Motor Weakness (generalized all extremities 3/5) Skin: Normal Color, Warm/Dry Lymphatic: No Adenopathy Results/Procedures Lab Laboratory Tests 12/05/20 06:50 Patient resulted labs reviewed. FIM Transfers Therapy Code Descriptions/Definitions Functional [place] Measure: 0=Not Assessed/NA 4=Minimal Assistance 1=Total Assistance 5=Supervision or Setup 2=Maximal Assistance 6=Modified [place] 3=Moderate Assistance 7=Complete IndependenceSCALE: Activities may be completed with or without assistive devices. 5-Zfqfuobiwe-rntxhcm completes the activity by him/herself with no assistance from a helper. 5-Set-up or Clean-up Assistance-helper sets up or cleans up; patient completes activity. [place] assists only prior to or following the activity. 4-Supervision or Touching Assistance-helper provides verbal cues and/or touching/steadying and/or contact guard assistance as patient completes activity. Assistance may be provided throughout the activity or intermittently. 3-Partial/Moderate Assistance-helper does LESS THAN HALF the effort. [place] lifts, holds or supports trunk or limbs, but provides less than half the effort. 2-Substantial/Maximal Assistance-helper does MORE THAN HALF the effort. [place] lifts or holds trunk or limbs and provides more than half the effort. 3-Jianhuhmr-qhewpi does ALL the effort. Patient does none of the effort to complete the activity. Or, the assistance of 2 or more helpers is required for the patient to complete the activity. If activity was not attempted, code reason: 7-Patient Refused. 9-Not Applicable-not attempted and the patient did not perform the activity before the current illness, exacerbation or injury. 10-Not Attempted due to Environmental Limitations-(lack of equipment, weather restraints, etc.). 88-Not Attempted due to Medical Conditions or Safety Concerns. Roll Left to Right (QC): 2 Sit to Lying (QC): 2 (assist with both legs to lie dwn. ) Sit to Stand (QC): 1 (assist of 2 to stand during ADL care and unable to come to a full stand from the chair. Sit to stand lift to return to bed. ) Chair/Gtp-as-Ksgaj Xfer(QC): 1 (dependent with use of sit to stand lift. ) Car Transfer (QC): 88 (unsafe to attempt due to heavy need for assist. ) Gait Training Does the Patient Walk?: No and Walking Goal IS indicated Walk 10 feet (QC): 88 Walk 50 ft with 2 Turns(QC): 88 Walk 150 ft (QC): 88 Walking 10ft/uneven surface-QC: 88 Wheelchair Training Does the Pt Use a Wheelchair?: No Wheel 50 ft with 2 turns (QC): 9 Wheel 150 ft (QC): 9 Stair Training 1 Step (curb) (QC): 88 4 Steps (QC): 88 12 Steps (QC): 88 Balance Picking up an Object (QC): 88 ADL-Treatment Eating (QC): 6 (IND with modified diet due to no dentation) Oral Hygiene (QC): 7 (denies.) Bathing Location: L Arm, R Arm, L Upper Leg, R Upper Leg, Chest, Abdomen, Perineal Area Shower/Bathe Self (QC): 1 (TD due to need of Ax2 for fx transfers/ sit to stand for bottom care. ) Upper Body Dressing (QC): 5 (s/u, pt requires increased time, able to complete with limited L UE shoulder flexion. ) Lower Body Dressing (QC): 1 (TD due to need of Ax2 for fx transfers/ sit to stand for pulling over hips. Pt able to thread BLE pant legs with use of open end spinning operator intermittently.) On/Off Footwear (QC): 2 (max A on this date due to fatigue.) Toileting Hygiene (QC): 1 (TD due to need of Ax2 for fx transfers/ sit to stand for bottom care. ) Toilet Transfer (QC): 1 (TD due to need of Ax2 for use of sit to stand transfer machine. Pt denies need for BM at this time. 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 Obesity DM Neuropathy Anemia O2 dependence Plan: IRF protocol Monitor O2 O2 supplement 12/05/20: O2 maintained IRF protocol Cardiology consultation appreciated Midline replacement (1) COVID-19 (2) RICHY on CPAP (3) Obesity (4) Diabetes (5) Hypertension (6) Edema (7) Neuropathy (8) Anemia (9) Advanced age DEANNA BOO DO Dec 05, 2020 10:27
--- NOTE | 2020-12-05 10:56 | Diagnostic Imaging Report ---
EXAMINATION: Portable erect AP chest at 10:04 a.m. INDICATION: Respiratory distress, COVID. There are no prior studies available for comparison. The heart is enlarged. There are alveolar/interstitial infiltrates along the periphery of the left midlung and to a lesser extent the right midlung. There may also be a small amount of fluid along the periphery of the right midlung. The central pulmonary vasculature is non-engorged and there is no evidence for overt failure. The mediastinum is not widened. The osseous structures are intact. 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 IMPRESSION: There is cardiomegaly and bilateral pneumonia/atelectasis with greater involvement of the left lung. By history, the patient is positive for COVID-19 and these findings are most likely related to COVID-19. Dictated by: Dictated on workstation # [id number]
--- NOTE | 2020-12-05 15:02 | Physical Therapy Daily Note ---
PT Daily Note-Current Subjective Pt up in recliner chair upon arrival to room, agreeable to LE strengthening exercises. No reports of pain. Appearance Following session, pt sitting up in recliner with call light and tray within reach. All needs met at this time. Mental Status Patient Orientation: Person, Place, Situation Attachments: Oxygen Transfers SCALE: Activities may be completed with or without assistive devices. 6-Vtksfdkjmb-gohutqp completes the activity by him/herself with no assistance from a helper. 5-Set-up or Clean-up Assistance-helper sets up or cleans up; patient completes activity. [place] assists only prior to or following the activity. 4-Supervision or Touching Assistance-helper provides verbal cues and/or touching/steadying and/or contact guard assistance as patient completes activity. Assistance may be provided throughout the activity or intermittently. 3-Partial/Moderate Assistance-helper does LESS THAN HALF the effort. [place] lifts, holds or supports trunk or limbs, but provides less than half the effort. 2-Substantial/Maximal Assistance-helper does MORE THAN HALF the effort. [place] l ifts or holds trunk or limbs and provides more than half the effort. 2-Ncnnglbxb-jjyjdq does ALL the effort. Patient does none of the effort to complete the activity. Or, the assistance of 2 or more helpers is required for the patient to complete the activity. If activity was not attempted, code reason: 7-Patient Refused. 9-Not Applicable-not attempted and the patient did not perform the activity before the current illness, exacerbation or injury. 10-Not Attempted due to Environmental Limitations-(lack of equipment, weather restraints, etc.). 88-Not Attempted due to Medical Conditions or Safety Concerns. Exercises Seated Therapy Exercises: Ankle pumps, Long arc quads, Hip flexion, Hip abd/add Seated Reps: 20 Assessment Current Status: Fair Progress Pt tolerated LE strengthening exercises well, no SOB noted. Pt continues to have LE weakness, will continue to progress pt as he tolerates. PT Short Term Goals Short Term Goals Time Frame: Dec 11, 2020 Roll Left & Right: 4 Sit to lyin Lying to sitting on side of be: 4 Sit to stand: 3 Chair/prl-nj-dwbzx transfer: 3 Walk 10 feet: 3 Walk 50 feet with two turns: 3 PT Assisted Goals Assisted Goals PT Fuel Cell Test Engineer Goals Time Frame: Jan 01, 2021 Roll Left & Right (QC): 6 Sit to Lying (QC): 6 Lying-Sitting on Side/Bed(QC): 6 Sit to Stand (QC): 6 Chair/Qpx-sl-Ekmzp Xfer(QC): 6 Toilet Transfer (QC): 6 Car Transfer (QC): 6 Does the Patient Walk: No and Walking Goal IS indicated Walk 10 feet (QC): 6 Walk 50ft with 2 Turns (QC): 6 Walk 150 ft (QC): 6 Walking 10ft on Uneven Surface: 4 1 Step (curb) (QC): 4 4 Steps (QC): 4 12 Steps (QC): 4 Picking up an Object (QC): 5 Does the Pt use WC or Scooter?: No Wheel 50 feet with 2 turns (QC: 9 Wheel 150 feet: 9 PT Plan Problem List Problem List: Activity Tolerance, Functional Strength, Safety, Balance, Gait, Transfer, Bed Mobility, ROM Treatment/Plan Treatment Plan: Continue Plan of Care Treatment Plan: Bed Mobility, Education, Functional Activity Erick, Functional Strength, Group Therapy, Gait, Safety, Therapeutic Exercise, Transfers Treatment Duration: Jan 01, 2021 Frequency: At least 5 of 7 days/Wk (IRF) Estimated Hrs Per Day: Other (see notation) Patient and/or Family Agrees t: Yes Time/GCodes Time In: 1440 Time Out: 1450 Total Billed Treatment Time: 10 Total Billed Treatment 1 visit EX (10') DENILSON RODRIGUEZ PT Dec 05, 2020 15:02
[2020-12-05 17:56] VITALS: BP 113/67
[2020-12-06 05:03] VITALS: BP 142/75
[2020-12-06] MEDS: inSUlin ASPART (NovoLOG) 1 UNIT/0.01 ML (CHARGE PER UNIT) SC SCH ×4 (06:30→21:10)
--- NOTE | 2020-12-06 09:01 | Occupational Ther Daily Note ---
OT Current Status-Daily Note Subjective Pt AxO this am. Pt denies pain, though states again, did not sleep well throughout the night. Pt agrees to tx. Pt's nurse present, states pt has been tachy. Pt's 02 95%, HR in 120 range. Pt seen in afternoon [id number] (14): Pt alert/ oriented. Agrees to tx. Denies pain. States fatigue. Mental Status/Objective Patient Orientation: Person, Place, Situation, Normal For Age Attachments: Oxygen (4L) ADL-Treatment Therapy Code Descriptions/Definitions Functional [place] Measure: 0=Not Assessed/NA 4=Minimal Assistance 1=Total Assistance 5=Supervision or Setup 2=Maximal Assistance 6=Modified [place] 3=Moderate Assistance 7=Complete IndependenceSCALE: Activities may be completed with or without assistive devices. 2-Rcygtooyua-alsgxeo completes the activity by him/herself with no assistance from a helper. 5-Set-up or Clean-up Assistance-helper sets up or cleans up; patient completes activity. [place] assists only prior to or following the activity. 4-Supervision or Touching Assistance-helper provides verbal cues and/or touching/steadying and/or contact guard assistance as patient completes activity. Assistance may be provided throughout the activity or intermittently. 3-Partial/Moderate Assistance-helper does LESS THAN HALF the effort. [place] lifts, holds or supports trunk or limbs, but provides less than half the effort. 2-Substantial/Maximal Assistance-helper does MORE THAN HALF the effort. [place] lifts or holds trunk or limbs and provides more than half the effort. 9-Uzurkadvi-bstwjd does ALL the effort. Patient does none of the effort to complete the activity. Or, the assistance of 2 or more helpers is required for the patient to complete the activity. If activity was not attempted, code reason: 7-Patient Refused. 9-Not Applicable-not attempted and the patient did not perform the activity before the current illness, exacerbation or injury. 10-Not Attempted due to Environmental Limitations-(lack of equipment, weather restraints, etc.). 88-Not Attempted due to Medical Conditions or Safety Concerns. Eating (QC): 6 Oral Hygiene (QC): 7 Upper Body Dressing (QC): 4 (SBA/ cues for breathing/ 02 donning between shirt doffing/ donning for rest break. 02 monitored, maintains in 90% range.) Lower Body Dressing (QC): 1 (TD due to need of Ax2 and sit to stand lift to pull pants over hips. Pt able to thread BLE with min A and use of older adult social work specialist, pt's 02 monitored with 83% reached toward end of pant donning. Pt requires cues to sit upright/ breath, recovers ihn 2 min. Nursing notified.) Toileting Hygiene (QC): 1 (TD due to need of sit to stand lift during bottom care.) Other Treatment OT individual tx: [id number] OT/ PT co-treat: [id number]: OT addresses UE movement, problem solving/ sequencing, balance while PT addresses fx transfers, LE movement/ gross motor and balance in stance. Pt in recliner/ ate all food. States blood glucose was low, states fatigue, nursing states tachycardia and EKG planned. Pt dresses as outlined. Ax2 for sit to stand lift to bed, bed mob with mod A for LB. Pt is prepped for EKG and completed in 5 minutes (time deducted). Pt bed mob to EOB with CGA/ min A for UB movement. Sit to stand lift utilized to reach w/c. Pushed to therapy gym with TD. Pt sits, completing 15 repetitions of bicep curls with simultaneous knee extension/ flexion. 02 at 98% end of this tx. Nursing states line must be placed soon, assist back to bed with Ax2 and sit to stand lift. Mod A reaching supine and TD reaching HOB. Pt is SOB intermittently through session, requiring cues for breath and relaxation. OT individual tx: [id number]: Pt denies ADLs, sits in recliner to complete 10 sets of ther ex bilaterally of the following ex: biceps, triceps, ext rotatio, and reps of R back flies with L stabilizing at abdomen. Pt denies needs, call light in reach. In recliner. Education OT Patient Education: Correct positioning, Energy conservation, Exercise program, Home exercise program, Modified ADL techniques, Purpose of tx/functional activities, Reviewed precautions, Rehab process, Safety issues, Transfer techniques Teaching Recipient: Patient Teaching Methods: Demonstration, Discussion Response to Teaching: Verbalize Understanding, Return Demonstration, Reinforcement Needed OT Short Term Goals Short Term Goals Time Frame: Dec 11, 2020 Eatin Oral hygiene: 88 Toileting hygiene: 2 Shower/bathe self: 3 Upper body dressin Lower body dressin Putting on/taking off footwear: 6 OT Fpc Goals Fpc Goals Time Frame: Dec 25, 2020 Eating (QC): 6 Oral Hygiene (QC): 6 Toileting Hygiene (QC): 5 Shower/Bathe Self (QC): 5 Upper Body Dressing (QC): 6 Lower Body Dressing (QC): 4 On/Off Footwear (QC): 6 Additional Goals: 1-Demonstrate ADL Tasks, 2-Verbalize Understanding, 3- ImproveStrength/Erick 1=Demonstrate adherence to instructed precautions during ADL tasks. 2=Patient will verbalize/demonstrate understanding of assistive devices/modifications for ADL. 3=Patient will improve strength/tolerance for activity to enable patient to perform ADL's. OT Education/Plan Problem List/Assessment Assessment: Decreased Activ Tolerance, Decreased UE Strength, Dependent Transfers, Edema, Impaired Bed Mobility, Impaired Funct Balance, Impaired I ADL's, Impaired Self-Care Skills, Restricted Funct UE ROM Discharge Recommendations Plan/Recommendations: Continue POC Therapy Discharge Recommendati: Scheduled Assistance, Home & Family, Post Acute OT Treatment Plan/Plan of Care Treatment,Training & Education: Yes Patient would benefit from OT for education, treatment and training to promote independence in ADL's, mobility, safety and/or upper extremity function for ADL's. Plan of Care: ADL Retraining, Caregiver Training, Concurrent Therapy, Functional Mobility, Group Exercise/Act as Ind, UE Funct Exercise/Act, UE Neuromus Re-Ed/Coord, W/C Management Training Treatment Duration: Dec 25, 2020 Frequency: Modified Program (IRF) Estimated Hrs Per Day: 1 hour per day Agreement: Yes Rehab Potential: Good Time/GCodes Start Time: 08:00 (1400) Stop Time: 08:50 (4) Total Time Billed (hr/min): 64 (50+14) Billed Treatment Time OT individual tx: [id number] OT/ PT co-treat: [id number]: OT addresses UE movement, problem solving/ sequencing, balance while PT addresses fx transfers, LE movement/ gross motor and balance in stance. 1, ADL 2 (30), EX (20)= 50 OT individual tx: [id number] (14): 1, EX (14) CHAPARRO GOLDEN OTR Dec 06, 2020 09:01
--- NOTE | 2020-12-06 09:01 | Physical Therapy Daily Note ---
PT Daily Note-Current Subjective Agrees to continue with therapy and transition to the therapy gym. He does report he does not feel he is sleeping well at night. Mental Status Patient Orientation: Person, Place, Time, Situation Transfers SCALE: Activities may be completed with or without assistive devices. 9-Kolygwphsn-uxveemq completes the activity by him/herself with no assistance from a helper. 5-Set-up or Clean-up Assistance-helper sets up or cleans up; patient completes activity. [place] assists only prior to or following the activity. 4-Supervision or Touching Assistance-helper provides verbal cues and/or touching/steadying and/or contact guard assistance as patient completes activity. Assistance may be provided throughout the activity or intermittently. 3-Partial/Moderate Assistance-helper does LESS THAN HALF the effort. [place] lifts, holds or supports trunk or limbs, but provides less than half the effort. 2-Substantial/Maximal Assistance-helper does MORE THAN HALF the effort. [place] lifts or holds trunk or limbs and provides more than half the effort. 2-Whyfysuts-dcgnxc does ALL the effort. Patient does none of the effort to complete the activity. Or, the assistance of 2 or more helpers is required for the patient to complete the activity. If activity was not attempted, code reason: 7-Patient Refused. 9-Not Applicable-not attempted and the patient did not perform the activity before the current illness, exacerbation or injury. 10-Not Attempted due to Environmental Limitations-(lack of equipment, weather restraints, etc.). 88-Not Attempted due to Medical Conditions or Safety Concerns. Sit to Lying (QC): 2 Lying to Sitting/Side of Bed(Q: 2 Sit to Stand (QC): 1 (sit to stand lift. ) Mod assist to transition sit to / from supine; pt transitioned sit to/from supine x 2. Up to chair for work on standing in // bars when nursing came to place a midline. Pt returned to bed and will continue treatment at a later time this morning. Treatments Co treat with OT due to the need for skill of 2 clinicians to effectively manage transfer transitions with OT addressing sequencing and UE use/placement as PT addressed core control, use and managment of LE. Assessment Shortened treatment this morning due to need for midline placement. PT Short Term Goals Short Term Goals Time Frame: Dec 11, 2020 Roll Left & Right: 4 Sit to lyin Lying to sitting on side of be: 4 Sit to stand: 3 Chair/ewn-no-lkaru transfer: 3 Walk 10 feet: 3 Walk 50 feet with two turns: 3 PT Sample Cutter Goals Sample Cutter Goals PT Skilled Nursing Goals Time Frame: Jan 01, 2021 Roll Left & Right (QC): 6 Sit to Lying (QC): 6 Lying-Sitting on Side/Bed(QC): 6 Sit to Stand (QC): 6 Chair/Qse-ga-Gatqk Xfer(QC): 6 Toilet Transfer (QC): 6 Car Transfer (QC): 6 Does the Patient Walk: No and Walking Goal IS indicated Walk 10 feet (QC): 6 Walk 50ft with 2 Turns (QC): 6 Walk 150 ft (QC): 6 Walking 10ft on Uneven Surface: 4 1 Step (curb) (QC): 4 4 Steps (QC): 4 12 Steps (QC): 4 Picking up an Object (QC): 5 Does the Pt use WC or Scooter?: No Wheel 50 feet with 2 turns (QC: 9 Wheel 150 feet: 9 PT Plan Problem List Problem List: Activity Tolerance Treatment/Plan Treatment Plan: Continue Plan of Care Treatment Plan: Bed Mobility, Education, Functional Activity Erick, Functional Strength, Group Therapy, Gait, Safety, Therapeutic Exercise, Transfers Treatment Duration: Jan 01, 2021 Frequency: At least 5 of 7 days/Wk (IRF) Estimated Hrs Per Day: Other (see notation) Patient and/or Family Agrees t: Yes Time/GCodes Time In: 830 Time Out: 850 Total Billed Treatment Time: 20 Total Billed Treatment visit FA 20 Co treat BRITNEY PACHECO PT Dec 06, 2020 09:01
--- NOTE | 2020-12-06 09:43 | PM&R Progress Note ---
Subjective HPI/CC On Admission Date Seen by Provider: Dec 06, 2020 Time Seen by Provider: 10:30 Subjective/Events-last exam 12/06/20: HR 122 Cardiology consulted Sugar 54 so decreasing insulin BM++ No pain reported No sleeping well so added hypnotics of Melatonin and Remeron 12/05/20: Patient doing well Worn out from fatigue Sugars are ok No pain reported Tachycardic so consulting Dr Carranza Midline was accidently pulled out so need a new one placed Checked meds and labs Review of Systems General: Fatigue, Malaise Pulmonary: Dyspnea, Cough Neurological: Weakness, Incoordination Objective Exam Vital Signs Vital Signs Date Time Temp Pulse Resp B/P (MAP) Pulse Ox O2 Delivery O2 Flow Rate FiO2 12/06/20 16:15 36.6 85 16 114/70 (85) 98 12/06/20 14:17 Nasal Cannula 4.00 Capillary Refill : General Appearance: No Apparent Distress, WD/WN, Anxious, Chronically ill, Obese HEENT: PERRL/EOMI, Normal ENT Inspection, Pharynx Normal Neck: Full Range of Motion, Normal Inspection, Non Tender, Supple, Carotid Bruit Respiratory: Chest Non Tender, No Accessory Muscle Use, No Respiratory Distress, Crackles, Decreased Breath Sounds Cardiovascular: Regular Rate, Rhythm, No Gallop, No JVD, No Murmur, Normal Peripheral Pulses Gastrointestinal: Normal Bowel Sounds, No Organomegaly, No Pulsatile Mass, Non Tender, Soft Back: Normal Inspection, No CVA Tenderness, No Vertebral Tenderness Extremity: Normal Capillary Refill, Normal Inspection, Normal Range of Motion, Non Tender, No Calf Tenderness, Pedal Edema Neurologic/Psychiatric: Alert, Oriented x3, No Motor/Sensory Deficits, shoulder puncher II- XII Norm as Tested, Depressed Affect, Motor Weakness (generalized all extremities 3/5) Skin: Normal Color, Warm/Dry Lymphatic: No Adenopathy Results/Procedures Lab Patient resulted labs reviewed. FIM Transfers Therapy Code Descriptions/Definitions Functional [place] Measure: 0=Not Assessed/NA 4=Minimal Assistance 1=Total Assistance 5=Supervision or Setup 2=Maximal Assistance 6=Modified [place] 3=Moderate Assistance 7=Complete IndependenceSCALE: Activities may be completed with or without assistive devices. 2-Zptgvtkyln-dhywovj completes the activity by him/herself with no assistance from a helper. 5-Set-up or Clean-up Assistance-helper sets up or cleans up; patient completes activity. [place] assists only prior to or following the activity. 4-Supervision or Touching Assistance-helper provides verbal cues and/or touching/steadying and/or contact guard assistance as patient completes activity. Assistance may be provided throughout the activity or intermittently. 3-Partial/Moderate Assistance-helper does LESS THAN HALF the effort. [place] lifts, holds or supports trunk or limbs, but provides less than half the effort. 2-Substantial/Maximal Assistance-helper does MORE THAN HALF the effort. [place] lifts or holds trunk or limbs and provides more than half the effort. 3-Tarqpstks-zknxwm does ALL the effort. Patient does none of the effort to complete the activity. Or, the assistance of 2 or more helpers is required for the patient to complete the activity. If activity was not attempted, code reason: 7-Patient Refused. 9-Not Applicable-not attempted and the patient did not perform the activity before the current illness, exacerbation or injury. 10-Not Attempted due to Environmental Limitations-(lack of equipment, weather restraints, etc.). 88-Not Attempted due to Medical Conditions or Safety Concerns. Roll Left to Right (QC): 2 Sit to Lying (QC): 2 Sit to Stand (QC): 1 (sit to stand lift. ) Chair/Bch-rg-Eehpg Xfer(QC): 1 (dependent with use of sit to stand lift. ) Car Transfer (QC): 88 (unsafe to attempt due to heavy need for assist. ) Gait Training Does the Patient Walk?: No and Walking Goal IS indicated Walk 10 feet (QC): 88 Walk 50 ft with 2 Turns(QC): 88 Walk 150 ft (QC): 88 Walking 10ft/uneven surface-QC: 88 Wheelchair Training Does the Pt Use a Wheelchair?: No Wheel 50 ft with 2 turns (QC): 9 Wheel 150 ft (QC): 9 Stair Training 1 Step (curb) (QC): 88 4 Steps (QC): 88 12 Steps (QC): 88 Balance Picking up an Object (QC): 88 ADL-Treatment Eating (QC): 6 Oral Hygiene (QC): 7 Bathing Location: L Arm, R Arm, L Upper Leg, R Upper Leg, Chest, Abdomen, Perineal Area Shower/Bathe Self (QC): 1 (TD due to need of Ax2 for fx transfers/ sit to stand for bottom care. ) Upper Body Dressing (QC): 4 (SBA/ cues for breathing/ 02 donning between shirt doffing/ donning for rest break. 02 monitored, maintains in 90% range.) Lower Body Dressing (QC): 1 (TD due to need of Ax2 and sit to stand lift to pull pants over hips. Pt able to thread BLE with min A and use of size maker, pt's 02 monitored with 83% reached toward end of pant donning. Pt requires cues to sit upright/ breath, recovers ihn 2 min. Nursing notified.) On/Off Footwear (QC): 2 (max A on this date due to fatigue.) Toileting Hygiene (QC): 1 (TD due to need of sit to stand lift during bottom ca re.) Toilet Transfer (QC): 1 (TD due to need of Ax2 for use of sit to stand transfer machine. Pt denies need for BM at this time. 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
[2020-12-06] MEDS: APIXABAN 5 MG (ELIQUIS) TABLET PO SCH ×2 (10:37→21:01)
[2020-12-06] MEDS: predniSONE 10 MG TAB PO SCH (10:37)
[2020-12-06] MEDS: TAMSULOSIN 0.4 MG (FLOMAX) CAP PO SCH (10:37)
[2020-12-06] MEDS: VITAMIN D3 25 MCG (1,000 UNITS) TABLET PO SCH (10:37)
[2020-12-06] MEDS: SENNA W/DOCUSATE (SENOKOT S) TABLET PO SCH ×2 (10:37→21:17)
[2020-12-06] MEDS: ASCORBIC ACID (VIT C) 500 MG TABLET PO SCH ×2 (10:37→19:01)
[2020-12-06] MEDS: ASPIRIN 81 MG CHEW (CHILDREN'S ASA) PO SCH (10:38)
[2020-12-06] MEDS: PANTOPRAZOLE 40 MG (PROTONIX) TAB PO SCH (10:38)
[2020-12-06] MEDS: DOCUSATE SODIUM 100 MG (COLACE) CAP PO SCH ×2 (10:38→21:01)
[2020-12-06] MEDS: SALIVA STIMULANT MOUTH SPRAY (BIOTENE) 1.5 OZ MM SCH ×4 (10:38→21:18)
[2020-12-06] MEDS: FINASTERIDE (PROSCAR) 5 MG TAB PO SCH (10:38)
[2020-12-06] MEDS: GABAPENTIN 100 MG (NEURONTIN) CAP PO SCH ×3 (10:38→21:01)
[2020-12-06] MEDS: FLUTICASONE NASAL SPRAY (FLONASE) 16 GM BTL NS SCH (10:39)
[2020-12-06] MEDS: SALINE NASAL SPRAY (OCEAN) 45 ML BTL NS SCH ×3 (10:39→21:18)
[2020-12-06] MEDS: ACETAMINOPHEN 325 MG TABLET PO SCH ×3 (10:42→21:03)
[2020-12-06] MEDS: polyethylene glycoL POWDER 17 GM (MIRALAX) PACK PO SCH ×2 (10:49→21:16)
--- NOTE | 2020-12-06 11:04 | Physical Therapy Daily Note ---
PT Daily Note-Current Subjective Pt sleeping upon arrival and had a difficult time waking up. Agrees to PT. During PT session, acknowledges that therapy is hard but willing to push through. Mental Status Patient Orientation: Person, Place, Time, Situation midline left UE Transfers SCALE: Activities may be completed with or without assistive devices. 1-Qoiqjjbjzk-wxbqixa completes the activity by him/herself with no assistance from a helper. 5-Set-up or Clean-up Assistance-helper sets up or cleans up; patient completes activity. [place] assists only prior to or following the activity. 4-Supervision or Touching Assistance-helper provides verbal cues and/or touching/steadying and/or contact guard assistance as patient completes activity. Assistance may be provided throughout the activity or intermittently. 3-Partial/Moderate Assistance-helper does LESS THAN HALF the effort. [place] lifts, holds or supports trunk or limbs, but provides less than half the effort. 2-Substantial/Maximal Assistance-helper does MORE THAN HALF the effort. [place] lifts or holds trunk or limbs and provides more than half the effort. 2-Whhnqmfkm-zlviox does ALL the effort. Patient does none of the effort to complete the activity. Or, the assistance of 2 or more helpers is required for the patient to complete the activity. If activity was not attempted, code reason: 7-Patient Refused. 9-Not Applicable-not attempted and the patient did not perform the activity before the current illness, exacerbation or injury. 10-Not Attempted due to Environmental Limitations-(lack of equipment, weather restraints, etc.). 88-Not Attempted due to Medical Conditions or Safety Concerns. Roll Left & Right (QC): 3 Lying to Sitting/Side of Bed(Q: 3 (min asssit but less assist than earlier today; cues for sequencing and use of bedrail.) Sit to Stand (QC): 1 (Sit to stand lift for functional transfers.Sit to stand x 4 in // bars with max to dep assist; unable to come to a full stand and stood approx 10 sec each time with max dep to hold up.) Chair/Xiw-gr-Inoqe Xfer(QC): 1 (sit to stand lift) Prolonged standing in sit to stand lift to promote glut and quad strength. Treatments Pt urinated while standing in sit to stand lift at end of visit. Pt in recliner post treatment, with oxygen on at 4 l/min and needs met. Nurse with patient giving meds. Oxygen sats do drop with standing in // bars to 84-86% but recover in 1 minute to greater than 92%. Assessment Current Status: Good Progress Tires quickly but motivated and gives full effort. Unable to fully extend hips or knees in standing but activates muscles. PT Short Term Goals Short Term Goals Time Frame: Dec 11, 2020 Roll Left & Right: 4 Sit to lyin Lying to sitting on side of be: 4 Sit to stand: 3 Chair/dmu-yz-uxjbr transfer: 3 Walk 10 feet: 3 Walk 50 feet with two turns: 3 PT Mcc Goals Mcc Goals PT Mcc Goals Time Frame: Jan 01, 2021 Roll Left & Right (QC): 6 Sit to Lying (QC): 6 Lying-Sitting on Side/Bed(QC): 6 Sit to Stand (QC): 6 Chair/Liz-ll-Zlwtk Xfer(QC): 6 Toilet Transfer (QC): 6 Car Transfer (QC): 6 Does the Patient Walk: No and Walking Goal IS indicated Walk 10 feet (QC): 6 Walk 50ft with 2 Turns (QC): 6 Walk 150 ft (QC): 6 Walking 10ft on Uneven Surface: 4 1 Step (curb) (QC): 4 4 Steps (QC): 4 12 Steps (QC): 4 Picking up an Object (QC): 5 Does the Pt use WC or Scooter?: No Wheel 50 feet with 2 turns (QC: 9 Wheel 150 feet: 9 PT Plan Problem List Problem List: Activity Tolerance, Functional Strength, Safety, Balance, Gait, Transfer, Bed Mobility Treatment/Plan Treatment Plan: Continue Plan of Care Treatment Plan: Bed Mobility, Education, Functional Activity Erick, Functional Strength, Group Therapy, Gait, Safety, Therapeutic Exercise, Transfers Treatment Duration: Jan 01, 2021 Frequency: At least 5 of 7 days/Wk (IRF) Estimated Hrs Per Day: Other (see notation) Patient and/or Family Agrees t: Yes Safety Risks/Education Patient Education: Transfer Techniques, Safety Issues Teaching Recipient: Patient Teaching Methods: Demonstration, Discussion Response to Teaching: Reinforcement Needed Time/GCodes Time In: 1000 Time Out: 1050 Total Billed Treatment Time: 50 Total Billed Treatment visit FA 50 BRITNEY PACHECO PT Dec 06, 2020 11:04
[2020-12-06] MEDS ORDERED: meTOprolol TARTRATE 50 MG (LOPRESSOR) TAB ONE (14:12)
[2020-12-06 14:17] VITALS: BP 114/69
--- NOTE | 2020-12-06 14:17 | Cardiology Progress Note ---
Cardiology SOAP Progress Note Subjective: This is a 80-year-old gentleman with history of COVID-19 pneumonia, critical illness myopathy, obstructive sleep apnea, diabetes, oxygen dependent currently in our inpatient rehabilitation. Was found to be tachycardic. EKG shows atrial fibrillation. Objective: I&O/Vital Signs 12/08/20 12/08/20 05:34 09:00 Temp 35.7 Pulse 77 Resp 19 B/P (MAP) 147/77 (100) Pulse Ox 94 94 O2 Delivery NIV CPAP Nasal Cannula O2 Flow Rate 4.00 4.00 12/08/20 00:00 Intake Total 920 ml Output Total 600 ml Balance 320 ml Constitutional: AAO x 3 Respiratory: chest is bilaterally symmetric, lungs clear to auscultation Cardiovascular: irregularly irregular, tachycardia, S1 and S2 Gastrointestional: soft, audible bowel sounds Extremities: normal range of motion, non-tender, normal inspection, no lower extremity edema bilateral Neurologic/Psychiatric: no motor/sensory deficits, alert, normal mood/affect, oriented x 3 Results/Procedures: Labs Laboratory Tests 12/07/20 20:26: Glucometer 323H 12/08/20 05:25: Glucometer 174H 12/08/20 10:38: Glucometer 225H 12/08/20 16:16: Glucometer 240H A/P: Assessment/Dx: 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 Thank you for your consultation. Please call me if you have any questions. Nanda Hollingsworth MD, FACP, FACC, FSCAI, FHRS, CCDS Interventional Cardiology Cardiac Electrophysiology Vascular Medicine and Endovascular Interventions Lucho HOLLINGSWORTH MD Dec 06, 2020 14:17
[2020-12-06 15:16] VITALS: BP 119/73
[2020-12-06 16:15] VITALS: BP 114/70
[2020-12-06] MEDS: MELATONIN 3 MG TABLET PO SCH (21:01)
[2020-12-06] MEDS: MIRTAZAPINE 15 MG (REMERON) TAB PO SCH (21:01)
[2020-12-06] MEDS: meTOprolol TARTRATE 50 MG (LOPRESSOR) TAB PO SCH (21:01)
--- NOTE | 2020-12-07 05:12 | PM&R Progress Note ---
Subjective HPI/CC On Admission Date Seen by Provider: Dec 07, 2020 Time Seen by Provider: 08:00 Subjective/Events-last exam 12/07/20: Slept better Yonker provided for phlem HR 60 Appreciate Cardiology 4L/min O2 BM 12/06/20 12/06/20: HR 122 Cardiology consulted Sugar 54 so decreasing insulin BM++ No pain reported No sleeping well so added hypnotics of Melatonin and Remeron 12/05/20: Patient doing well Worn out from fatigue Sugars are ok No pain reported Tachycardic so consulting Dr Carranza Midline was accidently pulled out so need a new one placed Checked meds and labs Review of Systems General: Fatigue, Malaise Pulmonary: Dyspnea, Cough Objective Exam Vital Signs Vital Signs Date Time Temp Pulse Resp B/P (MAP) Pulse Ox O2 Delivery O2 Flow Rate FiO2 12/08/20 05:34 35.7 77 19 147/77 (100) 94 NIV CPAP 4.00 Capillary Refill : General Appearance: No Apparent Distress, WD/WN, Anxious, Chronically ill, Obese HEENT: PERRL/EOMI, Normal ENT Inspection, Pharynx Normal Neck: Full Range of Motion, Normal Inspection, Non Tender, Supple, Carotid Bruit Respiratory: Chest Non Tender, No Accessory Muscle Use, No Respiratory Distress, Crackles, Decreased Breath Sounds Cardiovascular: Regular Rate, Rhythm, No Gallop, No JVD, No Murmur, Normal Peripheral Pulses Gastrointestinal: Normal Bowel Sounds, No Organomegaly, No Pulsatile Mass, Non Tender, Soft Back: Normal Inspection, No CVA Tenderness, No Vertebral Tenderness Extremity: Normal Capillary Refill, Normal Inspection, Normal Range of Motion, Non Tender, No Calf Tenderness, Pedal Edema Neurologic/Psychiatric: Alert, Oriented x3, No Motor/Sensory Deficits, lead programmer analyst II- XII Norm as Tested, Depressed Affect, Motor Weakness (generalized all extremities 3/5) Skin: Normal Color, Warm/Dry Lymphatic: No Adenopathy Results/Procedures Lab Patient resulted labs reviewed. FIM Transfers Therapy Code Descriptions/Definitions Functional [place] Measure: 0=Not Assessed/NA 4=Minimal Assistance 1=Total Assistance 5=Supervision or Setup 2=Maximal Assistance 6=Modified [place] 3=Moderate Assistance 7=Complete IndependenceSCALE: Activities may be completed with or without assistive devices. 5-Pycmvjmxiy-xetccye completes the activity by him/herself with no assistance from a helper. 5-Set-up or Clean-up Assistance-helper sets up or cleans up; patient completes activity. [place] assists only prior to or following the activity. 4-Supervision or Touching Assistance-helper provides verbal cues and/or cecy monica/steadying and/or contact guard assistance as patient completes activity. Assistance may be provided throughout the activity or intermittently. 3-Partial/Moderate Assistance-helper does LESS THAN HALF the effort. [place] lifts, holds or supports trunk or limbs, but provides less than half the effort. 2-Substantial/Maximal Assistance-helper does MORE THAN HALF the effort. [place] lifts or holds trunk or limbs and provides more than half the effort. 7-Mvxllyohi-kssrdr does ALL the effort. Patient does none of the effort to complete the activity. Or, the assistance of 2 or more helpers is required for the patient to complete the activity. If activity was not attempted, code reason: 7-Patient Refused. 9-Not Applicable-not attempted and the patient did not perform the activity before the current illness, exacerbation or injury. 10-Not Attempted due to Environmental Limitations-(lack of equipment, weather restraints, etc.). 88-Not Attempted due to Medical Conditions or Safety Concerns. Roll Left to Right (QC): 3 Sit to Lying (QC): 2 Sit to Stand (QC): 1 Chair/Iwj-bc-Olmmw Xfer(QC): 1 Car Transfer (QC): 88 (unsafe to attempt due to heavy need for assist. ) Gait Training Does the Patient Walk?: No and Walking Goal IS indicated Walk 10 feet (QC): 88 Walk 50 ft with 2 Turns(QC): 88 Walk 150 ft (QC): 88 Walking 10ft/uneven surface-QC: 88 Wheelchair Training Does the Pt Use a Wheelchair?: No Wheel 50 ft with 2 turns (QC): 9 Wheel 150 ft (QC): 9 Stair Training 1 Step (curb) (QC): 88 4 Steps (QC): 88 12 Steps (QC): 88 Balance Picking up an Object (QC): 88 ADL-Treatment Eating (QC): 6 Oral Hygiene (QC): 7 Bathing Location: L Arm, R Arm, L Upper Leg, R Upper Leg, Chest, Abdomen, Perineal Area Shower/Bathe Self (QC): 1 (TD due to need of Ax2 for fx transfers/ sit to stand for bottom care. ) Upper Body Dressing (QC): 4 (SBA/ cues for breathing/ 02 donning between shirt doffing/ donning for rest break. 02 monitored, maintains in 90% range.) Lower Body Dressing (QC): 1 (TD due to need of Ax2 and sit to stand lift to pull pants over hips. Pt able to thread BLE with min A and use of secondary market manager, pt's 02 monitored with 83% reached toward end of pant donning. Pt requires cues to sit upright/ breath, recovers ihn 2 min. Nursing notified.) On/Off Footwear (QC): 2 (max A on this date due to fatigue.) Toileting Hygiene (QC): 1 (TD due to need of sit to stand lift during bottom care.) Toilet Transfer (QC): 1 (TD due to need of Ax2 for use of sit to stand transfer machine. Pt denies need for BM at this time. 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
[2020-12-07 05:35] VITALS: BP 148/85
[2020-12-07] MEDS: inSUlin ASPART (NovoLOG) 1 UNIT/0.01 ML (CHARGE PER UNIT) SC SCH ×4 (06:00→21:00)
[2020-12-07] MEDS: ADVAIR HFA 115/21 MCG INHALER 8 GM IH SCH ×2 (07:02→21:12)
[2020-12-07] MEDS: UMECLIDINIUM BROMIDE (INCRUSE ELLIPTA) 7'S IH SCH (07:04)
[2020-12-07] MEDS: ASPIRIN 81 MG CHEW (CHILDREN'S ASA) PO SCH (07:43)
[2020-12-07] MEDS: DOCUSATE SODIUM 100 MG (COLACE) CAP PO SCH ×2 (07:43→20:47)
[2020-12-07] MEDS: VITAMIN D3 25 MCG (1,000 UNITS) TABLET PO SCH (07:43)
[2020-12-07] MEDS: ASCORBIC ACID (VIT C) 500 MG TABLET PO SCH ×2 (07:44→17:29)
[2020-12-07] MEDS: TAMSULOSIN 0.4 MG (FLOMAX) CAP PO SCH (07:44)
[2020-12-07] MEDS: PANTOPRAZOLE 40 MG (PROTONIX) TAB PO SCH (07:44)
[2020-12-07] MEDS: ACETAMINOPHEN 325 MG TABLET PO SCH ×3 (07:44→20:44)
[2020-12-07] MEDS: SENNA W/DOCUSATE (SENOKOT S) TABLET PO SCH ×2 (07:44→20:47)
[2020-12-07] MEDS: FINASTERIDE (PROSCAR) 5 MG TAB PO SCH (07:44)
[2020-12-07] MEDS: predniSONE 10 MG TAB PO SCH (07:44)
[2020-12-07] MEDS: meTOprolol TARTRATE 50 MG (LOPRESSOR) TAB PO SCH ×2 (07:45→20:45)
[2020-12-07] MEDS: SALINE NASAL SPRAY (OCEAN) 45 ML BTL NS SCH ×3 (07:45→20:46)
[2020-12-07] MEDS: APIXABAN 5 MG (ELIQUIS) TABLET PO SCH ×2 (07:45→20:45)
[2020-12-07] MEDS: SALIVA STIMULANT MOUTH SPRAY (BIOTENE) 1.5 OZ MM SCH ×4 (07:46→21:01)
[2020-12-07] MEDS: GABAPENTIN 100 MG (NEURONTIN) CAP PO SCH ×3 (07:46→20:44)
[2020-12-07] MEDS: polyethylene glycoL POWDER 17 GM (MIRALAX) PACK PO SCH ×2 (09:03→20:47)
--- NOTE | 2020-12-07 10:54 | Physical Therapy Daily Note ---
PT Daily Note-Current Subjective Pt in bed upon arrival; agrees to PT tx. Pain Numeric Pain Scale: 0-No Pain Location: No Pain Reported Mental Status Patient Orientation: Person, Place, Time, Situation Attachments: Saline Lock, SCD's, Oxygen (4L) Transfers SCALE: Activities may be completed with or without assistive devices. 4-Byjcchcezi-dvbketq completes the activity by him/herself with no assistance from a helper. 5-Set-up or Clean-up Assistance-helper sets up or cleans up; patient completes activity. [place] assists only prior to or following the activity. 4-Supervision or Touching Assistance-helper provides verbal cues and/or touching/steadying and/or contact guard assistance as patient completes activity. Assistance may be provided throughout the activity or intermittently. 3-Partial/Moderate Assistance-helper does LESS THAN HALF the effort. [place] lifts, holds or supports trunk or limbs, but provides less than half the effort. 2-Substantial/Maximal Assistance-helper does MORE THAN HALF the effort. [place] lifts or holds trunk or limbs and provides more than half the effort. 0-Ilwpkspqg-xtpgea does ALL the effort. Patient does none of the effort to complete the activity. Or, the assistance of 2 or more helpers is required for the patient to complete the activity. If activity was not attempted, code reason: 7-Patient Refused. 9-Not Applicable-not attempted and the patient did not perform the activity before the current illness, exacerbation or injury. 10-Not Attempted due to Environmental Limitations-(lack of equipment, weather restraints, etc.). 88-Not Attempted due to Medical Conditions or Safety Concerns. Roll Left & Right (QC): 3 Lying to Sitting/Side of Bed(Q: 4 Sit to Stand (QC): 1 Chair/Tvr-xg-Zbinc Xfer(QC): 1 Treatments Worked on bed mobility. During bed mobility, TISSUE COORDINATOR observed pt and pt bed saturated w/ urine. After pt cleaned up, pt transfers from EOB to recliner using sit<>stand lift. Pt in recliner w/ bed side table and call light w/in reach and all needs met, at end of tx. Assessment Current Status: Fair Progress Tires easily and requires rest break after completing bed mobility. PT Short Term Goals Short Term Goals Time Frame: Dec 11, 2020 Roll Left & Right: 4 Sit to lyin Lying to sitting on side of be: 4 Sit to stand: 3 Chair/txp-eu-wfxop transfer: 3 Walk 10 feet: 3 Walk 50 feet with two turns: 3 PT Malware Analyst Goals [facility] Goals PT [facility] Goals Time Frame: Jan 01, 2021 Roll Left & Right (QC): 6 Sit to Lying (QC): 6 Lying-Sitting on Side/Bed(QC): 6 Sit to Stand (QC): 6 Chair/Riv-el-Qlqry Xfer(QC): 6 Toilet Transfer (QC): 6 Car Transfer (QC): 6 Does the Patient Walk: No and Walking Goal IS indicated Walk 10 feet (QC): 6 Walk 50ft with 2 Turns (QC): 6 Walk 150 ft (QC): 6 Walking 10ft on Uneven Surface: 4 1 Step (curb) (QC): 4 4 Steps (QC): 4 12 Steps (QC): 4 Picking up an Object (QC): 5 Does the Pt use WC or Scooter?: No Wheel 50 feet with 2 turns (QC: 9 Wheel 150 feet: 9 PT Plan Problem List Problem List: Activity Tolerance, Functional Strength, Safety, Transfer, Bed Mobility Treatment/Plan Treatment Plan: Continue Plan of Care Treatment Plan: Bed Mobility, Education, Functional Activity Erick, Functional Strength, Group Therapy, Gait, Safety, Therapeutic Exercise, Transfers Treatment Duration: Jan 01, 2021 Frequency: At least 5 of 7 days/Wk (IRF) Estimated Hrs Per Day: Other (see notation) Patient and/or Family Agrees t: Yes Safety Risks/Education Patient Education: Correct Positioning Teaching Recipient: Patient Teaching Methods: Discussion Response to Teaching: Verbalize Understanding Time/GCodes Time In: 08 Time Out: 904 Total Billed Treatment Time: 30 Total Billed Treatment 1, FA (30m) SERGIO KINNEY TISSUE COORDINATOR Dec 07, 2020 10:54
[2020-12-07] MEDS: FLUTICASONE NASAL SPRAY (FLONASE) 16 GM BTL NS SCH (11:33)
[2020-12-07 15:35] VITALS: BP 117/68
[2020-12-07 20:00] VITALS: BP 134/69
[2020-12-07] MEDS: MELATONIN 3 MG TABLET PO SCH (20:44)
[2020-12-07] MEDS: MIRTAZAPINE 15 MG (REMERON) TAB PO SCH (20:44)
--- NOTE | 2020-12-07 21:56 | Cardiology Progress Note ---
Cardiology SOAP Progress Note Subjective: Improving heart rate. Objective: I&O/Vital Signs 12/08/20 12/08/20 05:34 09:00 Temp 35.7 Pulse 77 Resp 19 B/P (MAP) 147/77 (100) Pulse Ox 94 94 O2 Delivery NIV CPAP Nasal Cannula O2 Flow Rate 4.00 4.00 12/08/20 00:00 Intake Total 920 ml Output Total 600 ml Balance 320 ml Constitutional: AAO x 3 Respiratory: chest is bilaterally symmetric, lungs clear to auscultation Cardiovascular: irregularly irregular, S1 and S2 Gastrointestional: soft, audible bowel sounds Extremities: no lower extremity edema bilateral Neurologic/Psychiatric: no motor/sensory deficits, alert, normal mood/affect, oriented x 3 Results/Procedures: Labs Laboratory Tests 12/07/20 20:26: Glucometer 323H 12/08/20 05:25: Glucometer 174H 12/08/20 10:38: Glucometer 225H 12/08/20 16:16: Glucometer 240H A/P: Assessment/Dx: Critical illness myopathy, COVID-19, Atrial fibrillation with controlled ventricular rate Plan: Continue Cardizem and Eliquis. Ventricular rate 77 today. Thank you for your consultation. Please call me if you have any questions. Nanda Hollingsworth MD, FACP, FACC, FSCAI, FHRS, CCDS Interventional Cardiology Cardiac Electrophysiology Vascular Medicine and Endovascular Interventions Lucho HOLLINGSWORTH MD Dec 07, 2020 21:56
[2020-12-08] MEDS: inSUlin ASPART (NovoLOG) 1 UNIT/0.01 ML (CHARGE PER UNIT) SC SCH ×4 (05:28→21:34)
[2020-12-08 05:34] VITALS: BP 147/77
[2020-12-08] MEDS: UMECLIDINIUM BROMIDE (INCRUSE ELLIPTA) 7'S IH SCH (08:06)
[2020-12-08] MEDS: ADVAIR HFA 115/21 MCG INHALER 8 GM IH SCH ×2 (08:06→21:31)
--- NOTE | 2020-12-08 08:07 | PM&R Progress Note ---
Subjective HPI/CC On Admission Date Seen by Provider: Dec 08, 2020 Time Seen by Provider: 12:30 Subjective/Events-last exam 12/08/20: Slept well last night Remeron and Melatonin has helped him a lot Sinus tachy last night BM 12/06/20 so laxatives given No other issues 12/07/20: Slept better Yonker provided for phlem HR 60 Appreciate Cardiology 4L/min O2 BM 12/06/20 12/06/20: HR 122 Cardiology consulted Sugar 54 so decreasing insulin BM++ No pain reported No sleeping well so added hypnotics of Melatonin and Remeron 12/05/20: Patient doing well Worn out from fatigue Sugars are ok No pain reported Tachycardic so consulting Dr Carranza Midline was accidently pulled out so need a new one placed Checked meds and labs Review of Systems General: Fatigue, Malaise Pulmonary: Dyspnea, Cough Neurological: Weakness Objective Exam Vital Signs Vital Signs Date Time Temp Pulse Resp B/P (MAP) Pulse Ox O2 Delivery O2 Flow Rate FiO2 12/08/20 17:30 36.4 86 18 130/80 (97) 96 Nasal Cannula 4.00 Capillary Refill : General Appearance: No Apparent Distress, WD/WN, Anxious, Chronically ill, Obese HEENT: PERRL/EOMI, Normal ENT Inspection, Pharynx Normal Neck: Full Range of Motion, Normal Inspection, Non Tender, Supple, Carotid Bruit Respiratory: Chest Non Tender, No Accessory Muscle Use, No Respiratory Distress, Crackles, Decreased Breath Sounds Cardiovascular: Regular Rate, Rhythm, No Gallop, No JVD, No Murmur, Normal Peripheral Pulses Gastrointestinal: Normal Bowel Sounds, No Organomegaly, No Pulsatile Mass, Non Tender, Soft Back: Normal Inspection, No CVA Tenderness, No Vertebral Tenderness Extremity: Normal Capillary Refill, Normal Inspection, Normal Range of Motion, Non Tender, No Calf Tenderness, Pedal Edema Neurologic/Psychiatric: Alert, Oriented x3, No Motor/Sensory Deficits, paper sample clerk II- XII Norm as Tested, Depressed Affect, Motor Weakness (generalized all extremities 3/5) Skin: Normal Color, Warm/Dry Lymphatic: No Adenopathy Results/Procedures Lab Patient resulted labs reviewed. FIM Transfers Therapy Code Descriptions/Definitions Functional [place] Measure: 0=Not Assessed/NA 4=Minimal Assistance 1=Total Assistance 5=Supervision or Setup 2=Maximal Assistance 6=Modified [place] 3=Moderate Assistance 7=Complete IndependenceSCALE: Activities may be completed with or without assistive devices. 1-Ptsprxohfh-oobtcfo completes the activity by him/herself with no assistance from a helper. 5-Set-up or Clean-up Assistance-helper sets up or cleans up; patient completes activity. [place] assists only prior to or following the activity. 4-Supervision or Touching Assistance-helper provides verbal cues and/or touching/steadying and/or contact guard assistance as patient completes activity. Assistance may be provided throughout the activity or intermittently. 3-Partial/Moderate Assistance-helper does LESS THAN HALF the effort. [place] lifts, holds or supports trunk or limbs, but provides less than half the effort. 2-Substantial/Maximal Assistance-helper does MORE THAN HALF the effort. [place] lifts or holds trunk or limbs and provides more than half the effort. 4-Cfdrtjjai-cwvqeg does ALL the effort. Patient does none of the effort to complete the activity. Or, the assistance of 2 or more helpers is required for the patient to complete the activity. If activity was not attempted, code reason: 7-Patient Refused. 9-Not Applicable-not attempted and the patient did not perform the activity before the current illness, exacerbation or injury. 10-Not Attempted due to Environmental Limitations-(lack of equipment, weather restraints, etc.). 88-Not Attempted due to Medical Conditions or Safety Concerns. Roll Left to Right (QC): 3 Sit to Lying (QC): 2 Sit to Stand (QC): 1 Chair/Csm-fg-Qmhjc Xfer(QC): 1 Car Transfer (QC): 88 (unsafe to attempt due to heavy need for assist. ) Gait Training Does the Patient Walk?: No and Walking Goal IS indicated Walk 10 feet (QC): 88 Walk 50 ft with 2 Turns(QC): 88 Walk 150 ft (QC): 88 Walking 10ft/uneven surface-QC: 88 Wheelchair Training Does the Pt Use a Wheelchair?: No Wheel 50 ft with 2 turns (QC): 9 Wheel 150 ft (QC): 9 Stair Training 1 Step (curb) (QC): 88 4 Steps (QC): 88 12 Steps (QC): 88 Balance Picking up an Object (QC): 88 ADL-Treatment Eating (QC): 6 Oral Hygiene (QC): 7 Bathing Location: L Arm, R Arm, L Upper Leg, R Upper Leg, Chest, Abdomen, Perineal Area Shower/Bathe Self (QC): 1 (TD due to need of Ax2 for fx transfers/ sit to stand for bottom care. ) Upper Body Dressing (QC): 4 (SBA/ cues for breathing/ 02 donning between shirt doffing/ donning for rest break. 02 monitored, maintains in 90% range.) Lower Body Dressing (QC): 1 (TD due to need of Ax2 and sit to stand lift to pull pants over hips. Pt able to thread BLE with min A and use of liner machine operator helper, pt's 02 monitored with 83% reached toward end of pant donning. Pt requires cues to sit upright/ breath, recovers ihn 2 min. Nursing notified.) On/Off Footwear (QC): 2 (max A on this date due to fatigue.) Toileting Hygiene (QC): 1 (TD due to need of sit to stand lift during bottom care.) Toilet Transfer (QC): 1 (TD due to need of Ax2 for use of sit to stand transfer machine. Pt denies need for BM at this time. 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
[2020-12-08] MEDS: TAMSULOSIN 0.4 MG (FLOMAX) CAP PO SCH (09:40)
[2020-12-08] MEDS: SENNA W/DOCUSATE (SENOKOT S) TABLET PO SCH ×2 (09:40→21:33)
[2020-12-08] MEDS: ASPIRIN 81 MG CHEW (CHILDREN'S ASA) PO SCH (09:40)
[2020-12-08] MEDS: ACETAMINOPHEN 325 MG TABLET PO SCH ×3 (09:40→21:34)
[2020-12-08] MEDS: polyethylene glycoL POWDER 17 GM (MIRALAX) PACK PO SCH ×3 (09:41→22:10)
[2020-12-08] MEDS: GABAPENTIN 100 MG (NEURONTIN) CAP PO SCH ×3 (09:41→21:33)
[2020-12-08] MEDS: PANTOPRAZOLE 40 MG (PROTONIX) TAB PO SCH (09:41)
[2020-12-08] MEDS: DOCUSATE SODIUM 100 MG (COLACE) CAP PO SCH ×2 (09:41→21:32)
[2020-12-08] MEDS: meTOprolol TARTRATE 50 MG (LOPRESSOR) TAB PO SCH ×2 (09:41→21:32)
[2020-12-08] MEDS: FINASTERIDE (PROSCAR) 5 MG TAB PO SCH (09:41)
[2020-12-08] MEDS: predniSONE 10 MG TAB PO SCH (09:41)
[2020-12-08] MEDS: APIXABAN 5 MG (ELIQUIS) TABLET PO SCH ×2 (09:41→21:32)
[2020-12-08] MEDS: ASCORBIC ACID (VIT C) 500 MG TABLET PO SCH ×2 (09:41→16:42)
[2020-12-08] MEDS: SALIVA STIMULANT MOUTH SPRAY (BIOTENE) 1.5 OZ MM SCH ×4 (09:42→22:09)
[2020-12-08] MEDS: FLUTICASONE NASAL SPRAY (FLONASE) 16 GM BTL NS SCH (09:42)
[2020-12-08] MEDS: SALINE NASAL SPRAY (OCEAN) 45 ML BTL NS SCH ×3 (09:43→22:09)
[2020-12-08] MEDS: VITAMIN D3 25 MCG (1,000 UNITS) TABLET PO SCH (09:44)
[2020-12-08 17:30] VITALS: BP 130/80
[2020-12-08 20:25] VITALS: BP 137/88
[2020-12-08] MEDS: MELATONIN 3 MG TABLET PO SCH (21:32)
[2020-12-08] MEDS: MIRTAZAPINE 15 MG (REMERON) TAB PO SCH (21:33)
[2020-12-09 04:43] LABS: BASOPHILS % (AUTO) 0 % (0-10); EOSINOPHILS % (AUTO) 0 % (0-10); HEMATOCRIT 30 % (40-54); HEMOGLOBIN 9.5 g/dL (13.3-17.7); LYMPHOCYTES # (AUTO) 0.6 10^3/uL (1.0-4.0); LYMPHOCYTES % (AUTO) 7 % (12-44); MEAN CORPUSCULAR HEMOGLOBIN 29 pg (25-34); MEAN CORPUSCULAR HGB CONC 32 g/dL (32-36); MEAN CORPUSCULAR VOLUME 90 fL (80-99); MEAN PLATELET VOLUME 9.4 fL (9.0-12.2); MONOCYTES # (AUTO) 0.6 10^3/uL (0.0-1.0); MONOCYTES % (AUTO) 7 % (0-12); NEUTROPHILS # (AUTO) 7.1 10^3/uL (1.8-7.8); NEUTROPHILS % (AUTO) 84 % (42-75); PLATELET COUNT 97 10^3/uL (130-400); WHITE BLOOD COUNT 8.4 10^3/uL (4.3-11.0)
[2020-12-09 04:54] LABS: ALBUMIN 3.1 GM/DL (3.2-4.5); CHLORIDE 102 MMOL/L (98-107); POTASSIUM 4.6 MMOL/L (3.6-5.0); SODIUM 141 MMOL/L (135-145)
[2020-12-09 04:55] LABS: CALCIUM 8.9 MG/DL (8.5-10.1)
[2020-12-09 04:56] LABS: GLUCOSE 158 MG/DL (70-105); TOTAL PROTEIN 5.3 GM/DL (6.4-8.2)
[2020-12-09 04:57] LABS: CARBON DIOXIDE 30 MMOL/L (21-32)
[2020-12-09 04:58] LABS: BILIRUBIN,TOTAL 0.5 MG/DL (0.1-1.0)
[2020-12-09 05:00] LABS: ALKALINE PHOSPHATASE 70 U/L (40-136); CREATININE SERUM 0.81 MG/DL (0.60-1.30); GFR ESTIMATED > 60
[2020-12-09 05:01] LABS: BUN/CREATININE RATIO 27
[2020-12-09 05:03] LABS: ALANINE AMINOTRANSFERASE 70 U/L (0-55)
[2020-12-09] MEDS: inSUlin ASPART (NovoLOG) 1 UNIT/0.01 ML (CHARGE PER UNIT) SC SCH ×4 (05:47→21:01)
[2020-12-09 06:34] VITALS: BP 162/92
[2020-12-09] MEDS: UMECLIDINIUM BROMIDE (INCRUSE ELLIPTA) 7'S IH SCH (07:21)
[2020-12-09] MEDS: ADVAIR HFA 115/21 MCG INHALER 8 GM IH SCH ×2 (07:21→18:28)
[2020-12-09] MEDS: FINASTERIDE (PROSCAR) 5 MG TAB PO SCH (07:50)
[2020-12-09] MEDS: predniSONE 10 MG TAB PO SCH (07:50)
[2020-12-09] MEDS: VITAMIN D3 25 MCG (1,000 UNITS) TABLET PO SCH (07:50)
[2020-12-09] MEDS: meTOprolol TARTRATE 50 MG (LOPRESSOR) TAB PO SCH ×2 (07:50→21:00)
[2020-12-09] MEDS: SENNA W/DOCUSATE (SENOKOT S) TABLET PO SCH ×2 (07:50→21:01)
[2020-12-09] MEDS: ACETAMINOPHEN 325 MG TABLET PO SCH ×3 (07:50→21:03)
[2020-12-09] MEDS: GABAPENTIN 100 MG (NEURONTIN) CAP PO SCH ×3 (07:51→21:01)
[2020-12-09] MEDS: ZINC OXIDE 16% OINT (BUTT PASTE) 57 GM TUBE TOP PRN (07:51)
[2020-12-09] MEDS: APIXABAN 5 MG (ELIQUIS) TABLET PO SCH ×2 (07:51→21:00)
[2020-12-09] MEDS: TAMSULOSIN 0.4 MG (FLOMAX) CAP PO SCH (07:51)
[2020-12-09] MEDS: DOCUSATE SODIUM 100 MG (COLACE) CAP PO SCH ×2 (07:51→21:00)
[2020-12-09] MEDS: ASPIRIN 81 MG CHEW (CHILDREN'S ASA) PO SCH (07:51)
[2020-12-09] MEDS: ASCORBIC ACID (VIT C) 500 MG TABLET PO SCH ×2 (07:51→17:31)
[2020-12-09] MEDS: PANTOPRAZOLE 40 MG (PROTONIX) TAB PO SCH (07:51)
[2020-12-09] MEDS: SALIVA STIMULANT MOUTH SPRAY (BIOTENE) 1.5 OZ MM SCH ×4 (07:54→20:59)
[2020-12-09] MEDS: SALINE NASAL SPRAY (OCEAN) 45 ML BTL NS SCH ×3 (07:54→21:00)
[2020-12-09] MEDS: FLUTICASONE NASAL SPRAY (FLONASE) 16 GM BTL NS SCH (07:54)
[2020-12-09] MEDS: polyethylene glycoL POWDER 17 GM (MIRALAX) PACK PO SCH ×2 (07:54→21:01)
--- NOTE | 2020-12-09 08:40 | PM&R Progress Note ---
Subjective HPI/CC On Admission Date Seen by Provider: Dec 09, 2020 Time Seen by Provider: 08:30 Subjective/Events-last exam 12/09/20: Pt slept pretty well Bowels are moving PLTs are 97, 000 Normal WBC down from 21 when he first arrived Denies any significant issues Trying to get strong enough to walk 12/08/20: Slept well last night Remeron and Melatonin has helped him a lot Sinus tachy last night BM 12/06/20 so laxatives given No other issues 12/07/20: Slept better Yonker provided for phlem HR 60 Appreciate Cardiology 4L/min O2 BM 12/06/20 12/06/20: HR 122 Cardiology consulted Sugar 54 so decreasing insulin BM++ No pain reported No sleeping well so added hypnotics of Melatonin and Remeron 12/05/20: Patient doing well Worn out from fatigue Sugars are ok No pain reported Tachycardic so consulting Dr Carranza Midline was accidently pulled out so need a new one placed Checked meds and labs Review of Systems General: Fatigue, Malaise Pulmonary: Dyspnea, Cough Objective Exam Vital Signs Vital Signs Date Time Temp Pulse Resp B/P (MAP) Pulse Ox O2 Delivery O2 Flow Rate FiO2 12/09/20 21:20 99 124/74 (91) 96 Nasal Cannula 4.00 12/09/20 18:29 36.4 20 Capillary Refill : General Appearance: No Apparent Distress, WD/WN, Anxious, Chronically ill, Obese HEENT: PERRL/EOMI, Normal ENT Inspection, Pharynx Normal Neck: Full Range of Motion, Normal Inspection, Non Tender, Supple, Carotid Bruit Respiratory: Chest Non Tender, No Accessory Muscle Use, No Respiratory Distress, Crackles, Decreased Breath Sounds Cardiovascular: Regular Rate, Rhythm, No Gallop, No JVD, No Murmur, Normal P eripheral Pulses Gastrointestinal: Normal Bowel Sounds, No Organomegaly, No Pulsatile Mass, Non Tender, Soft Back: Normal Inspection, No CVA Tenderness, No Vertebral Tenderness Extremity: Normal Capillary Refill, Normal Inspection, Normal Range of Motion, Non Tender, No Calf Tenderness, Pedal Edema Neurologic/Psychiatric: Alert, Oriented x3, No Motor/Sensory Deficits, program instructor II- XII Norm as Tested, Depressed Affect, Motor Weakness (generalized all extremities 3/5) Skin: Normal Color, Warm/Dry Lymphatic: No Adenopathy Results/Procedures Lab Patient resulted labs reviewed. FIM Transfers Therapy Code Descriptions/Definitions Functional [place] Measure: 0=Not Assessed/NA 4=Minimal Assistance 1=Total Assistance 5=Supervision or Setup 2=Maximal Assistance 6=Modified [place] 3=Moderate Assistance 7=Complete IndependenceSCALE: Activities may be completed with or without assistive devices. 4-Psqesnskjy-nkdtztx completes the activity by him/herself with no assistance from a helper. 5-Set-up or Clean-up Assistance-helper sets up or cleans up; patient completes activity. [place] assists only prior to or following the activity. 4-Supervision or Touching Assistance-helper provides verbal cues and/or touching/steadying and/or contact guard assistance as patient completes activity. Assistance may be provided throughout the activity or intermittently. 3-Partial/Moderate Assistance-helper does LESS THAN HALF the effort. [place] lifts, holds or supports trunk or limbs, but provides less than half the effort. 2-Substantial/Maximal Assistance-helper does MORE THAN HALF the effort. [place] lifts or holds trunk or limbs and provides more than half the effort. 6-Scebzwhzt-hnrvud does ALL the effort. Patient does none of the effort to c omplete the activity. Or, the assistance of 2 or more helpers is required for the patient to complete the activity. If activity was not attempted, code reason: 7-Patient Refused. 9-Not Applicable-not attempted and the patient did not perform the activity before the current illness, exacerbation or injury. 10-Not Attempted due to Environmental Limitations-(lack of equipment, weather restraints, etc.). 88-Not Attempted due to Medical Conditions or Safety Concerns. Roll Left to Right (QC): 3 Sit to Lying (QC): 2 Sit to Stand (QC): 1 Chair/Die-pg-Jxylh Xfer(QC): 1 Car Transfer (QC): 88 (unsafe to attempt due to heavy need for assist. ) Gait Training Does the Patient Walk?: No and Walking Goal IS indicated Walk 10 feet (QC): 88 Walk 50 ft with 2 Turns(QC): 88 Walk 150 ft (QC): 88 Walking 10ft/uneven surface-QC: 88 Wheelchair Training Does the Pt Use a Wheelchair?: No Wheel 50 ft with 2 turns (QC): 9 Wheel 150 ft (QC): 9 Stair Training 1 Step (curb) (QC): 88 4 Steps (QC): 88 12 Steps (QC): 88 Balance Picking up an Object (QC): 88 ADL-Treatment Eating (QC): 6 Oral Hygiene (QC): 7 Bathing Location: L Arm, R Arm, L Upper Leg, R Upper Leg, Chest, Abdomen, Perineal Area Shower/Bathe Self (QC): 1 (TD due to need of Ax2 for fx transfers/ sit to stand for bottom care. ) Upper Body Dressing (QC): 4 (SBA/ cues for breathing/ 02 donning between shirt doffing/ donning for rest break. 02 monitored, maintains in 90% range.) Lower Body Dressing (QC): 1 (TD due to need of Ax2 and sit to stand lift to pull pants over hips. Pt able to thread BLE with min A and use of sounding device operator, pt's 02 monitored with 83% reached toward end of pant donning. Pt requires cues to sit upright/ breath, recovers ihn 2 min. Nursing notified.) On/Off Footwear (QC): 2 (max A on this date due to fatigue.) Toileting Hygiene (QC): 1 (TD due to need of sit to stand lift during bottom care.) Toilet Transfer (QC): 1 (TD due to need of Ax2 for use of sit to stand transfer machine. Pt denies need for BM at this time. 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 Obesity DM Neuropathy Anemia O2 dependence Plan: IRF protocol Monitor O2 O2 supplement 12/05/20: O2 maintained IRF protocol Cardiology consultation appreciated Midline replacement 12/06/20: Cardiology consult appreciated Decrease insulin Midline Monitor closely 12/07/20: Monitor closely O2 wean Increase acitivity Maintain Remeron and Melatonin 12/08/20: Monitor closely Check labs in am Monitor tachycardia Remeron and Melatonin 12/09/20: Labs normal Improved strength Weaning O2 Monitor insomnia Increase insulin (1) COVID-19 (2) RICHY on CPAP (3) Obesity (4) Diabetes (5) Hypertension (6) Edema (7) Neuropathy (8) Anemia (9) Advanced age DEANNA BOO DO Dec 09, 2020 08:40
--- NOTE | 2020-12-09 10:42 | Physical Therapy Daily Note ---
PT Daily Note-Current Subjective Pt. agrees to Rx, states he likes to sit up all day , mostly in recliner. Pt. agreeable to Rx. Pt. states while in // bars with instruction in sit to stand that he would rather stand using the LIKO lift, "I can really hold my self up with that" This SECRETARY RECEPTIONIST explains that it will be to his advantage when he can rise from chair without use of device Pain Location: No Pain Reported Mental Status Patient Orientation: Person Attachments: Oxygen (4L) Transfers SCALE: Activities may be completed with or without assistive devices. 1-Cogxtptuea-ajhlzhw completes the activity by him/herself with no assistance from a helper. 5-Set-up or Clean-up Assistance-helper sets up or cleans up; patient completes activity. [place] assists only prior to or following the activity. 4-Supervision or Touching Assistance-helper provides verbal cues and/or touching/steadying and/or contact guard assistance as patient completes activity. Assistance may be provided throughout the activity or intermittently. 3-Partial/Moderate Assistance-helper does LESS THAN HALF the effort. [place] lifts, holds or supports trunk or limbs, but provides less than half the effort. 2-Substantial/Maximal Assistance-helper does MORE THAN HALF the effort. [place] lifts or holds trunk or limbs and provides more than half the effort. 8-Xtbucpjws-hleclz does ALL the effort. Patient does none of the effort to complete the activity. Or, the assistance of 2 or more helpers is required for the patient to complete the activity. If activity was not attempted, code reason: 7-Patient Refused. 9-Not Applicable-not attempted and the patient did not perform the activity before the current illness, exacerbation or injury. 10-Not Attempted due to Environmental Limitations-(lack of equipment, weather restraints, etc.). 88-Not Attempted due to Medical Conditions or Safety Concerns. Sit to Stand (QC): 2 Chair/Tpg-dt-Kcixr Xfer(QC): 1 sit to stand TRFs focus during Rx . Pt wheeled self 50% of way to gym, assisted for O2 , dyspnea noted and rests given. pt. instructed in pulling self up at // bars but required max assist x 3 trials and did not get to complete stance having increasing dyspnea and stating he needed to sit. Pt. then suggested sit to stand practices be done with LIKO lift. This SECRETARY RECEPTIONIST accommodated but explained that the real value of standing would be to stand at // bars etc. Exercises Seated Therapy Exercises: Ankle pumps, Sit to stand, Long arc quads, Hip flexion, Hip abd/add Seated Reps: 12 Treatments pt. up in recliner via LIKO lift , call dinh and computer and phone at hand as requested Assessment Current Status: Fair Progress not sure pt. is giving full effort, pt likely very deconditioned PLOF PT Short Term Goals Short Term Goals Time Frame: Dec 11, 2020 Roll Left & Right: 4 Sit to lyin Lying to sitting on side of be: 4 Sit to stand: 3 Chair/yuy-fa-vnvzf transfer: 3 Walk 10 feet: 3 Walk 50 feet with two turns: 3 PT Halfway Goals Rfid Systems Engineer Goals PT Rfid Systems Engineer Goals Time Frame: Jan 01, 2021 Roll Left & Right (QC): 6 Sit to Lying (QC): 6 Lying-Sitting on Side/Bed(QC): 6 Sit to Stand (QC): 6 Chair/Eum-hv-Fkqyj Xfer(QC): 6 Toilet Transfer (QC): 6 Car Transfer (QC): 6 Does the Patient Walk: No and Walking Goal IS indicated Walk 10 feet (QC): 6 Walk 50ft with 2 Turns (QC): 6 Walk 150 ft (QC): 6 Walking 10ft on Uneven Surface: 4 1 Step (curb) (QC): 4 4 Steps (QC): 4 12 Steps (QC): 4 Picking up an Object (QC): 5 Does the Pt use WC or Scooter?: No Wheel 50 feet with 2 turns (QC: 9 Wheel 150 feet: 9 PT Plan Treatment/Plan Treatment Plan: Continue Plan of Care Treatment Plan: Bed Mobility, Education, Functional Activity Erick, Functional Strength, Group Therapy, Gait, Safety, Therapeutic Exercise, Transfers Treatment Duration: Jan 01, 2021 Frequency: At least 5 of 7 days/Wk (IRF) Estimated Hrs Per Day: Other (see notation) Patient and/or Family Agrees t: Yes Safety Risks/Education Patient Education: Transfer Techniques, Correct Positioning, Disease Process, Safety Issues Teaching Recipient: Patient Teaching Methods: Demonstration, Discussion Response to Teaching: Verbalize Understanding, Return Demonstration, Reinforcement Needed Time/GCodes Time In: 935 Time Out: 1035 Total Billed Treatment Time: 60 Total Billed Treatment 1,EX15m,FA45m SUSANNA CONNER SECRETARY RECEPTIONIST Dec 09, 2020 10:42
--- NOTE | 2020-12-09 13:12 | Occupational Ther Daily Note ---
OT Current Status-Daily Note Subjective No pain reported. Appearance Pt. in bed. Agrees to work with OT. Mental Status/Objective Patient Orientation: Person, Place, Time, Situation ADL-Treatment Therapy Code Descriptions/Definitions Functional [place] Measure: 0=Not Assessed/NA 4=Minimal Assistance 1=Total Assistance 5=Supervision or Setup 2=Maximal Assistance 6=Modified [place] 3=Moderate Assistance 7=Complete IndependenceSCALE: Activities may be completed with or without assistive devices. 1-Cpmmprimgv-mwddggb completes the activity by him/herself with no assistance from a helper. 5-Set-up or Clean-up Assistance-helper sets up or cleans up; patient completes activity. [place] assists only prior to or following the activity. 4-Supervision or Touching Assistance-helper provides verbal cues and/or touching/steadying and/or contact guard assistance as patient completes activity. Assistance may be provided throughout the activity or intermittently. 3-Partial/Moderate Assistance-helper does LESS THAN HALF the effort. [place] lifts, holds or supports trunk or limbs, but provides less than half the effort. 2-Substantial/Maximal Assistance-helper does MORE THAN HALF the effort. [place] lifts or holds trunk or limbs and provides more than half the effort. 9-Kmneijnxb-flsnbz does ALL the effort. Patient does none of the effort to complete the activity. Or, the assistance of 2 or more helpers is required for the patient to complete the activity. If activity was not attempted, code reason: 7-Patient Refused. 9-Not Applicable-not attempted and the patient did not perform the activity before the current illness, exacerbation or injury. 10-Not Attempted due to Environmental Limitations-(lack of equipment, weather restraints, etc.). 88-Not Attempted due to Medical Conditions or Safety Concerns. Shower/Bathe Self (QC): 1 (Pt. able to cleanse upper body while sitting on EOB. He is able to bend bilateral LE up to him while seated, and wash them as well. Pt. does require dependent assistance however because a sit-stand lift is used to transfer pt. to standing position, so that yo area can be cleansed.) Upper Body Dressing (QC): 3 (Min assist sitting on side of bed.) Lower Body Dressing (QC): 1 (Pt. is able to don underwear using AE around feet. A sit-stand lift is required to transfer pt. to feet so that underwear could be donned over hips.) On/Off Footwear: 3 (Mod assistance. Pt. able to doff slipper socks seated with AE. However, requires assistance to don shoes that slide on.) Toileting Hygiene (QC): 1 (Pt. was incontinent of urine in bed. OT came into room, and pt. lying in urine. Pt. required assistance to cleanse, but also was able to use urinal as well.) Other Treatment After ADLs, pt. was transferred to wheelchair using sit-stand lift. Pt. on 4 L 02. Pt. assisted with wheelchair propulsion, with mod assistance needed. Pt. SOA, but sats at 99%. Multiple rest breaks given. Pt. completed 2minute session, and then 3minute session on arm bike at min resistance to increase overall strength and independence. Tolerated this well. Pt. able to assist with wheelchair propulsion back to room where all needs were met. Education OT Patient Education: Correct positioning, Exercise program, Modified ADL techniques, Progress toward Goal/Update tx plan, Purpose of tx/functional activities, Reviewed precautions, Rehab process, Transfer techniques Teaching Recipient: Patient Teaching Methods: Demonstration, Discussion Response to Teaching: Verbalize Understanding, Return Demonstration OT Short Term Goals Short Term Goals Time Frame: Dec 11, 2020 Eatin Oral hygiene: 88 Toileting hygiene: 2 Shower/bathe self: 3 Upper body dressin Lower body dressin Putting on/taking off footwear: 6 OT Group Home Goals Group Home Goals Time Frame: Dec 25, 2020 Eating (QC): 6 Oral Hygiene (QC): 6 Toileting Hygiene (QC): 5 Shower/Bathe Self (QC): 5 Upper Body Dressing (QC): 6 Lower Body Dressing (QC): 4 On/Off Footwear (QC): 6 Additional Goals: 1-Demonstrate ADL Tasks, 2-Verbalize Understanding, 3- ImproveStrength/Erick 1=Demonstrate adherence to instructed precautions during ADL tasks. 2=Patient will verbalize/demonstrate understanding of assistive devices/modifications for ADL. 3=Patient will improve strength/tolerance for activity to enable patient to perform ADL's. OT Education/Plan Problem List/Assessment Assessment: Decreased Activ Tolerance, Decreased UE Strength, Dependent Transfers, Impaired Bed Mobility, Impaired Funct Balance, Impaired I ADL's, Impaired Self-Care Skills Discharge Recommendations Plan/Recommendations: Continue POC Therapy Discharge Recommendati: Scheduled Assistance, Home & Family, Post Acute OT Equpiment Recommendations-D/C: Hip Kit Treatment Plan/Plan of Care Treatment,Training & Education: Yes (Covid waiver) Patient would benefit from OT for education, treatment and training to promote independence in ADL's, mobility, safety and/or upper extremity function for ADL's. Plan of Care: ADL Retraining, Caregiver Training, Concurrent Therapy, Functional Mobility, Group Exercise/Act as Ind, UE Funct Exercise/Act, UE Neuromus Re-Ed/Coord, W/C Management Training Treatment Duration: Dec 25, 2020 Frequency: Modified Program (IRF) Estimated Hrs Per Day: 1 hour per day Agreement: Yes Rehab Potential: Good Time/GCodes Start Time: 08:30 Stop Time: 09:30 Total Time Billed (hr/min): 60 Billed Treatment Time 1, ADL x 30minutes, Ex x 15minutes, FA x 15minutes CAMILA SINCLAIR OT Dec 09, 2020 13:12
[2020-12-09 18:29] VITALS: BP 124/75
[2020-12-09] MEDS: MELATONIN 3 MG TABLET PO SCH (21:00)
[2020-12-09] MEDS: MIRTAZAPINE 15 MG (REMERON) TAB PO SCH (21:01)
[2020-12-09 21:20] VITALS: BP 124/74
[2020-12-10] MEDS: inSUlin ASPART (NovoLOG) 1 UNIT/0.01 ML (CHARGE PER UNIT) SC SCH ×4 (06:05→20:44)
[2020-12-10 06:20] VITALS: BP 150/66
[2020-12-10] MEDS: UMECLIDINIUM BROMIDE (INCRUSE ELLIPTA) 7'S IH SCH (07:09)
[2020-12-10] MEDS: ADVAIR HFA 115/21 MCG INHALER 8 GM IH SCH ×2 (07:09→18:59)
[2020-12-10 08:00] VITALS: BP 132/78
--- NOTE | 2020-12-10 08:36 | PM&R Progress Note ---
Subjective HPI/CC On Admission Date Seen by Provider: Dec 10, 2020 Time Seen by Provider: 08:30 Subjective/Events-last exam 12/10/20: Pt doing pretty well Slept on and off last night Remains on 4 liters of O2 Swelling in his feel is pretty minimal Did not use his BiPAP last night and that likely is the cause of not sleeping well 12/09/20: Pt slept pretty well Bowels are moving PLTs are 97, 000 Normal WBC down from 21 when he first arrived Denies any significant issues Trying to get strong enough to walk 12/08/20: Slept well last night Remeron and Melatonin has helped him a lot Sinus tachy last night BM 12/06/20 so laxatives given No other issues 12/07/20: Slept better Yonker provided for phlem HR 60 Appreciate Cardiology 4L/min O2 BM 12/06/20 12/06/20: HR 122 Cardiology consulted Sugar 54 so decreasing insulin BM++ No pain reported No sleeping well so added hypnotics of Melatonin and Remeron 12/05/20: Patient doing well Worn out from fatigue Sugars are ok No pain reported Tachycardic so consulting Dr Carranza Midline was accidently pulled out so need a new one placed Checked meds and labs Review of Systems General: Fatigue, Malaise Pulmonary: Dyspnea Neurological: Weakness Objective Exam Vital Signs Vital Signs Date Time Temp Pulse Resp B/P (MAP) Pulse Ox O2 Delivery O2 Flow Rate FiO2 12/10/20 21:30 Nasal Cannula 4.00 12/10/20 19:00 91 12/10/20 17:36 36.6 99 129/70 (89) 12/10/20 06:20 18 Capillary Refill : General Appearance: No Apparent Distress, WD/WN, Anxious, Chronically ill, Obese HEENT: PERRL/EOMI, Normal ENT Inspection, Pharynx Normal Neck: Full Range of Motion, Normal Inspection, Non Tender, Supple, Carotid Bruit Respiratory: Chest Non Tender, No Accessory Muscle Use, No Respiratory Distress, Crackles, Decreased Breath Sounds Cardiovascular: Regular Rate, Rhythm, No Gallop, No JVD, No Murmur, Normal Peripheral Pulses Gastrointestinal: Normal Bowel Sounds, No Organomegaly, No Pulsatile Mass, Non Tender, Soft Back: Normal Inspection, No CVA Tenderness, No Vertebral Tenderness Extremity: Normal Capillary Refill, Normal Inspection, Normal Range of Motion, Non Tender, No Calf Tenderness, Pedal Edema Neurologic/Psychiatric: Alert, Oriented x3, No Motor/Sensory Deficits, hematology nurse II- XII Norm as Tested, Depressed Affect, Motor Weakness (generalized all extremities 3/5) Skin: Normal Color, Warm/Dry Lymphatic: No Adenopathy Results/Procedures Lab Patient resulted labs reviewed. FIM Transfers Therapy Code Descriptions/Definitions Functional [place] Measure: 0=Not Assessed/NA 4=Minimal Assistance 1=Total Assistance 5=Supervision or Setup 2=Maximal Assistance 6=Modified [place] 3=Moderate Assistance 7=Complete IndependenceSCALE: Activities may be completed with or without assistive devices. 0-Urdntazknl-bqbhtfu completes the activity by him/herself with no assistance from a helper. 5-Set-up or Clean-up Assistance-helper sets up or cleans up; patient completes activity. [place] assists only prior to or following the activity. 4-Supervision or Touching Assistance-helper provides verbal cues and/or touching/steadying and/or contact guard assistance as patient completes activity. Assistance may be provided throughout the activity or intermittently. 3-Partial/Moderate Assistance-helper does LESS THAN HALF the effort. [place] lifts, holds or supports trunk or limbs, but provides less than half the effort. 2-Substantial/Maximal Assistance-helper does MORE THAN HALF the effort. [place] lifts or holds trunk or limbs and provides more than half the effort. 6-Zbckfhjey-xfjnta does ALL the effort. Patient does none of the effort to complete the activity. Or, the assistance of 2 or more helpers is required for the patient to complete the activity. If activity was not attempted, code reason: 7-Patient Refused. 9-Not Applicable-not attempted and the patient did not perform the activity before the current illness, exacerbation or injury. 10-Not Attempted due to Environmental Limitations-(lack of equipment, weather restraints, etc.). 88-Not Attempted due to Medical Conditions or Safety Concerns. Roll Left to Right (QC): 3 Sit to Lying (QC): 2 Sit to Stand (QC): 2 Chair/Nvb-nd-Rmblf Xfer(QC): 1 Car Transfer (QC): 88 (unsafe to attempt due to heavy need for assist. ) Gait Training Does the Patient Walk?: No and Walking Goal IS indicated Walk 10 feet (QC): 88 Walk 50 ft with 2 Turns(QC): 88 Walk 150 ft (QC): 88 Walking 10ft/uneven surface-QC: 88 Wheelchair Training Does the Pt Use a Wheelchair?: No Wheel 50 ft with 2 turns (QC): 9 Wheel 150 ft (QC): 9 Stair Training 1 Step (curb) (QC): 88 4 Steps (QC): 88 12 Steps (QC): 88 Balance Picking up an Object (QC): 88 ADL-Treatment Eating (QC): 6 Oral Hygiene (QC): 7 Bathing Location: L Arm, R Arm, L Upper Leg, R Upper Leg, Chest, Abdomen, Perineal Area Shower/Bathe Self (QC): 1 (Pt. able to cleanse upper body while sitting on EOB. He is able to bend bilateral LE up to him while seated, and wash them as well. Pt. does require dependent assistance however because a sit-stand lift is used to transfer pt. to standing position, so that yo area can be cleansed.) Upper Body Dressing (QC): 3 (Min assist sitting on side of bed.) Lower Body Dressing (QC): 1 (Pt. is able to don underwear using AE around feet. A sit-stand lift is required to transfer pt. to feet so that underwear could be donned over hips.) On/Off Footwear (QC): 3 (Mod assistance. Pt. able to doff slipper socks seated with AE. However, requires assistance to don shoes that slide on.) Toileting Hygiene (QC): 1 (Pt. was incontinent of urine in bed. OT came into room, and pt. lying in urine. Pt. required assistance to cleanse, but also was able to use urinal as well.) Toilet Transfer (QC): 1 (TD due to need of Ax2 for use of sit to stand transfer machine. Pt denies need for BM at this time. 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 Obesity DM Neuropathy Anemia O2 dependence Plan: IRF protocol Monitor O2 O2 supplement 12/05/20: O2 maintained IRF protocol Cardiology consultation appreciated Midline replacement 12/06/20: Cardiology consult appreciated Decrease insulin Midline Monitor closely 12/07/20: Monitor closely O2 wean Increase acitivity Maintain Remeron and Melatonin 12/08/20: Monitor closely Check labs in am Monitor tachycardia Remeron and Melatonin 12/09/20: Labs normal Improved strength Weaning O2 Monitor insomnia Increase insulin 12/10/20: Monitor O2 Increase strength Severe myopathy of legs (1) COVID-19 (2) RICHY on CPAP (3) Obesity (4) Diabetes (5) Hypertension (6) Edema (7) Neuropathy (8) Anemia (9) Advanced age DEANNA BOO DO Dec 10, 2020 08:36
[2020-12-10] MEDS: VITAMIN D3 25 MCG (1,000 UNITS) TABLET PO SCH (09:29)
[2020-12-10] MEDS: FINASTERIDE (PROSCAR) 5 MG TAB PO SCH (09:29)
[2020-12-10] MEDS: GABAPENTIN 100 MG (NEURONTIN) CAP PO SCH ×3 (09:29→20:45)
[2020-12-10] MEDS: ACETAMINOPHEN 325 MG TABLET PO SCH ×3 (09:29→20:45)
[2020-12-10] MEDS: ASCORBIC ACID (VIT C) 500 MG TABLET PO SCH ×2 (09:29→17:56)
[2020-12-10] MEDS: meTOprolol TARTRATE 50 MG (LOPRESSOR) TAB PO SCH ×2 (09:29→20:45)
[2020-12-10] MEDS: TAMSULOSIN 0.4 MG (FLOMAX) CAP PO SCH (09:31)
[2020-12-10] MEDS: PANTOPRAZOLE 40 MG (PROTONIX) TAB PO SCH (09:32)
[2020-12-10] MEDS: SENNA W/DOCUSATE (SENOKOT S) TABLET PO SCH ×2 (09:32→19:18)
[2020-12-10] MEDS: predniSONE 10 MG TAB PO SCH (09:32)
[2020-12-10] MEDS: DOCUSATE SODIUM 100 MG (COLACE) CAP PO SCH ×2 (09:33→19:18)
[2020-12-10] MEDS: polyethylene glycoL POWDER 17 GM (MIRALAX) PACK PO SCH ×2 (09:33→19:18)
--- NOTE | 2020-12-10 09:34 | Occupational Ther Daily Note ---
OT Current Status-Daily Note Subjective No pain reported. Pt. states that he really wants to walk. Appearance Pt. up in chair. Agrees to work with OT. Mental Status/Objective Patient Orientation: Person, Place, Time, Situation ADL-Treatment Therapy Code Descriptions/Definitions Functional [place] Measure: 0=Not Assessed/NA 4=Minimal Assistance 1=Total Assistance 5=Supervision or Setup 2=Maximal Assistance 6=Modified [place] 3=Moderate Assistance 7=Complete IndependenceSCALE: Activities may be completed with or without assistive devices. 4-Mpzcclcsgc-bhjxyjj completes the activity by him/herself with no assistance from a helper. 5-Set-up or Clean-up Assistance-helper sets up or cleans up; patient completes activity. [place] assists only prior to or following the activity. 4-Supervision or Touching Assistance-helper provides verbal cues and/or touching/steadying and/or contact guard assistance as patient completes activity . Assistance may be provided throughout the activity or intermittently. 3-Partial/Moderate Assistance-helper does LESS THAN HALF the effort. [place] lifts, holds or supports trunk or limbs, but provides less than half the effort. 2-Substantial/Maximal Assistance-helper does MORE THAN HALF the effort. [place] lifts or holds trunk or limbs and provides more than half the effort. 6-Adnrouigj-zersvr does ALL the effort. Patient does none of the effort to complete the activity. Or, the assistance of 2 or more helpers is required for the patient to complete the activity. If activity was not attempted, code reason: 7-Patient Refused. 9-Not Applicable-not attempted and the patient did not perform the activity before the current illness, exacerbation or injury. 10-Not Attempted due to Environmental Limitations-(lack of equipment, weather restraints, etc.). 88-Not Attempted due to Medical Conditions or Safety Concerns. Shower/Bathe Self (QC): 1 (Pt. is able to bathe upper body with cues while seated on shower chair. Pt. is able to bathe bilateral feet using LH sponge. He requires assistance of sit-stand lift for standing so that OT can thoroughly cleanse yo area. Pt. requires assistance to wash hair, and dry self.) Upper Body Dressing (QC): 3 (Min assist due to fatigue and placement of IV.) Lower Body Dressing (QC): 1 (Pt. is able to thread bilateral LE through underwear using die sizer, but requires the assistance of sit-stand lift so that O T can don over hips.) On/Off Footwear: 2 Toileting Hygiene (QC): 1 (Pt. is able to state that he has to have a BM. He is on shower chair so OT puts shower chair over toilet. Pt. has BM, and requires full assistance for yo cleanse while in sit-stand lift.) Toilet Transfer (QC): 1 Education OT Patient Education: Correct positioning, Modified ADL techniques, Progress toward Goal/Update tx plan, Purpose of tx/functional activities, Reviewed precautions, Rehab process, Transfer techniques Teaching Recipient: Patient Teaching Methods: Demonstration, Discussion Response to Teaching: Verbalize Understanding, Return Demonstration OT Short Term Goals Short Term Goals Time Frame: Dec 11, 2020 Eatin Oral hygiene: 88 Toileting hygiene: 2 Shower/bathe self: 3 Upper body dressin Lower body dressin Putting on/taking off footwear: 6 OT Usp Goals Usp Goals Time Frame: Dec 25, 2020 Eating (QC): 6 Oral Hygiene (QC): 6 Toileting Hygiene (QC): 5 Shower/Bathe Self (QC): 5 Upper Body Dressing (QC): 6 Lower Body Dressing (QC): 4 On/Off Footwear (QC): 6 Additional Goals: 1-Demonstrate ADL Tasks, 2-Verbalize Understanding, 3- ImproveStrength/Erick 1=Demonstrate adherence to instructed precautions during ADL tasks. 2=Patient will verbalize/demonstrate understanding of assistive devices/modifications for ADL. 3=Patient will improve strength/tolerance for activity to enable patient to perform ADL's. OT Education/Plan Problem List/Assessment Assessment: Decreased Activ Tolerance, Decreased UE Strength, Dependent Transfers, Impaired Funct Balance, Impaired I ADL's, Impaired Self-Care Skills, Restricted Funct UE ROM Discharge Recommendations Plan/Recommendations: Continue POC Therapy Discharge Recommendati: Post Acute OT Treatment Plan/Plan of Care Treatment,Training & Education: Yes Patient would benefit from OT for education, treatment and training to promote independence in ADL's, mobility, safety and/or upper extremity function for A DL's. Plan of Care: ADL Retraining, Caregiver Training, Concurrent Therapy, Functional Mobility, Group Exercise/Act as Ind, UE Funct Exercise/Act, UE Neuromus Re-Ed/Coord, W/C Management Training Treatment Duration: Dec 25, 2020 Frequency: Modified Program (IRF) Estimated Hrs Per Day: 1 hour per day Agreement: Yes Rehab Potential: Good Time/GCodes Start Time: 08:25 Stop Time: 09:25 Total Time Billed (hr/min): 60 Billed Treatment Time 1, ADL x 4 CAMILA SINCLAIR OT Dec 10, 2020 09:34
[2020-12-10] MEDS: FLUTICASONE NASAL SPRAY (FLONASE) 16 GM BTL NS SCH (09:36)
[2020-12-10] MEDS: SALINE NASAL SPRAY (OCEAN) 45 ML BTL NS SCH ×3 (09:36→20:48)
[2020-12-10] MEDS: SALIVA STIMULANT MOUTH SPRAY (BIOTENE) 1.5 OZ MM SCH ×4 (09:37→20:49)
[2020-12-10] MEDS: APIXABAN 5 MG (ELIQUIS) TABLET PO SCH ×2 (09:45→20:45)
[2020-12-10] MEDS: ASPIRIN 81 MG CHEW (CHILDREN'S ASA) PO SCH (09:45)
--- NOTE | 2020-12-10 12:07 | Physical Therapy Daily Note ---
PT Daily Note-Current Subjective Sitting in recliner upon arrival. Pt agrees to PT. Pt continues to ask about using Sit to Stand lift. LIP OF SHANK CUTTER encourages pt to stand with staff since pt will not have lift at home. Pain Location: No Pain Reported Mental Status Patient Orientation: Person, Place Attachments: Oxygen (4L) Transfers SCALE: Activities may be completed with or without assistive devices. 3-Yorrinunbs-krxzaor completes the activity by him/herself with no assistance from a helper. 5-Set-up or Clean-up Assistance-helper sets up or cleans up; patient completes activity. [place] assists only prior to or following the activity. 4-Supervision or Touching Assistance-helper provides verbal cues and/or touching/steadying and/or contact guard assistance as patient completes activity. Assistance may be provided throughout the activity or intermittently. 3-Partial/Moderate Assistance-helper does LESS THAN HALF the effort. [place] lifts, holds or supports trunk or limbs, but provides less than half the effort. 2-Substantial/Maximal Assistance-helper does MORE THAN HALF the effort. [place] lifts or holds trunk or limbs and provides more than half the effort. 4-Oknhtvnnv-izseia does ALL the effort. Patient does none of the effort to complete the activity. Or, the assistance of 2 or more helpers is required for the patient to complete the activity. If activity was not attempted, code reason: 7-Patient Refused. 9-Not Applicable-not attempted and the patient did not perform the activity before the current illness, exacerbation or injury. 10-Not Attempted due to Environmental Limitations-(lack of equipment, weather restraints, etc.). 88-Not Attempted due to Medical Conditions or Safety Concerns. Sit to Stand (QC): 1 Chair/Qnz-je-Goauk Xfer(QC): 1 Weight Bearing Full Weight Bearing Full Weight Bearing Wheelchair Training Does the Pt Use a Wheelchair?: Yes Wheel 50 ft with 2 turns (QC): 4 Type of Wheelchair: Manual Exercises Seated Therapy Exercises: Sit to stand (3 reps), Long arc quads, Hip flexion, Kicking activity, Glut set Seated Reps: 15 Treatments Pt completes Seated EX at recliner to increase blood flow before standing. Sit to stand lift is used due to pt dependence on staff for standing. Pt propels WC in hallway with VC for sequencing and using both UE & LE during [facility] mobility. Pt stand a //bars x3 at Max A needing assistance to stand with both knees and bringing but under pt. Pt propels back to room and TF sit to stand lift from [facility] to recliner. All needs met, call light in hand. Assessment Current Status: Fair Progress Pt is unmotivated at times, continually wanting to use Sit to Stand lift for TF. LIP OF SHANK CUTTER explains wanting pt to be as independent as possible and needing WB to gain strength for standing and eventually walking for DC. PT Short Term Goals Short Term Goals Time Frame: Dec 11, 2020 Roll Left & Right: 4 Sit to lyin Lying to sitting on side of be: 4 Sit to stand: 3 Chair/vth-tq-ovfau transfer: 3 Walk 10 feet: 3 Walk 50 feet with two turns: 3 PT Assisted Goals Development Specialist Goals PT Development Specialist Goals Time Frame: Jan 01, 2021 Roll Left & Right (QC): 6 Sit to Lying (QC): 6 Lying-Sitting on Side/Bed(QC): 6 Sit to Stand (QC): 6 Chair/Wul-cu-Gyobp Xfer(QC): 6 Toilet Transfer (QC): 6 Car Transfer (QC): 6 Does the Patient Walk: No and Walking Goal IS indicated Walk 10 feet (QC): 6 Walk 50ft with 2 Turns (QC): 6 Walk 150 ft (QC): 6 Walking 10ft on Uneven Surface: 4 1 Step (curb) (QC): 4 4 Steps (QC): 4 12 Steps (QC): 4 Picking up an Object (QC): 5 Does the Pt use WC or Scooter?: No Wheel 50 feet with 2 turns (QC: 9 Wheel 150 feet: 9 PT Plan Problem List Problem List: Activity Tolerance, Functional Strength, Transfer Treatment/Plan Treatment Plan: Continue Plan of Care Treatment Plan: Bed Mobility, Education, Functional Activity Erick, Functional Strength, Group Therapy, Gait, Safety, Therapeutic Exercise, Transfers Treatment Duration: Jan 01, 2021 Frequency: At least 5 of 7 days/Wk (IRF) Estimated Hrs Per Day: Other (see notation) Patient and/or Family Agrees t: Yes Safety Risks/Education Patient Education: Transfer Techniques, Correct Positioning, W/C Management, Safety Issues Teaching Recipient: Patient Teaching Methods: Discussion Response to Teaching: Reinforcement Needed Time/GCodes Time In: 1025 Time Out: 1140 Total Billed Treatment Time: 75 Total Billed Treatment 1, EX x2 (30m) & FA x3 (45m) AMADOU CASTILLO LIP OF SHANK CUTTER Dec 10, 2020 12:07
[2020-12-10] MEDS ORDERED: OMEP20TA7 PO (13:54)
[2020-12-10] MEDS ORDERED: TRIA1TAB3 PO (13:54)
[2020-12-10] MEDS ORDERED: ZINC50TA58 PO (13:54)
[2020-12-10] MEDS ORDERED: CYAN250T PO (13:54)
[2020-12-10] MEDS ORDERED: SIMV40TA25 PO (13:54)
[2020-12-10] MEDS ORDERED: GABA300C PO (13:54)
[2020-12-10] MEDS ORDERED: APIX2.5T PO (13:54)
[2020-12-10 17:36] VITALS: BP 129/70
[2020-12-10] MEDS: MIRTAZAPINE 15 MG (REMERON) TAB PO SCH (20:45)
[2020-12-10] MEDS: MELATONIN 3 MG TABLET PO SCH (20:45)
[2020-12-11] MEDS: inSUlin ASPART (NovoLOG) 1 UNIT/0.01 ML (CHARGE PER UNIT) SC SCH ×4 (05:43→21:07)
[2020-12-11 06:21] VITALS: BP 117/68
[2020-12-11] MEDS: ASPIRIN 81 MG CHEW (CHILDREN'S ASA) PO SCH (07:56)
[2020-12-11] MEDS: APIXABAN 5 MG (ELIQUIS) TABLET PO SCH ×2 (07:56→21:05)
[2020-12-11] MEDS: VITAMIN D3 25 MCG (1,000 UNITS) TABLET PO SCH (07:56)
[2020-12-11] MEDS: ASCORBIC ACID (VIT C) 500 MG TABLET PO SCH ×2 (07:56→16:38)
[2020-12-11] MEDS: GABAPENTIN 100 MG (NEURONTIN) CAP PO SCH ×3 (07:56→21:04)
[2020-12-11] MEDS: predniSONE 10 MG TAB PO SCH (07:56)
[2020-12-11] MEDS: TAMSULOSIN 0.4 MG (FLOMAX) CAP PO SCH (07:56)
[2020-12-11] MEDS: meTOprolol TARTRATE 50 MG (LOPRESSOR) TAB PO SCH ×2 (07:57→21:05)
[2020-12-11] MEDS: polyethylene glycoL POWDER 17 GM (MIRALAX) PACK PO SCH ×2 (07:57→21:16)
[2020-12-11] MEDS: SENNA W/DOCUSATE (SENOKOT S) TABLET PO SCH ×2 (07:57→21:16)
[2020-12-11] MEDS: PANTOPRAZOLE 40 MG (PROTONIX) TAB PO SCH (07:57)
[2020-12-11] MEDS: FINASTERIDE (PROSCAR) 5 MG TAB PO SCH (07:57)
[2020-12-11] MEDS: ACETAMINOPHEN 325 MG TABLET PO SCH ×3 (07:57→21:05)
[2020-12-11] MEDS: DOCUSATE SODIUM 100 MG (COLACE) CAP PO SCH ×2 (07:58→21:15)
[2020-12-11] MEDS: SALINE NASAL SPRAY (OCEAN) 45 ML BTL NS SCH ×3 (07:58→21:09)
[2020-12-11] MEDS: FLUTICASONE NASAL SPRAY (FLONASE) 16 GM BTL NS SCH (08:00)
[2020-12-11] MEDS: SALIVA STIMULANT MOUTH SPRAY (BIOTENE) 1.5 OZ MM SCH ×4 (08:01→21:07)
[2020-12-11 08:03] VITALS: BP 106/65
[2020-12-11] MEDS: ADVAIR HFA 115/21 MCG INHALER 8 GM IH SCH ×2 (09:35→20:45)
[2020-12-11] MEDS: UMECLIDINIUM BROMIDE (INCRUSE ELLIPTA) 7'S IH SCH (09:35)
--- NOTE | 2020-12-11 10:35 | PM&R Progress Note ---
Subjective HPI/CC On Admission Date Seen by Provider: Dec 11, 2020 Time Seen by Provider: 10:00 Subjective/Events-last exam 12/11/20: No major issues Pretty much has plateaued and not made much progress with ambulation Epistaxis of the left nostril Nasal sprays will be continued Re-check and check with insurance coverage but he very well may need to be in a fpc 12/10/20: Pt doing pretty well Slept on and off last night Remains on 4 liters of O2 Swelling in his feel is pretty minimal Did not use his BiPAP last night and that likely is the cause of not sleeping well 12/09/20: Pt slept pretty well Bowels are moving PLTs are 97, 000 Normal WBC down from when he first arrived Denies any significant issues Trying to get strong enough to walk 12/08/20: Slept well last night Remeron and Melatonin has helped him a lot Sinus tachy last night BM 12/06/20 so laxatives given No other issues 12/07/20: Slept better Yonker provided for phlem HR 60 Appreciate Cardiology 4L/min O2 BM 12/06/20 12/06/20: HR 122 Cardiology consulted Sugar 54 so decreasing insulin BM++ No pain reported No sleeping well so added hypnotics of Melatonin and Remeron 12/05/20: Patient doing well Worn out from fatigue Sugars are ok No pain reported Tachycardic so consulting Dr Carranza Midline was accidently pulled out so need a new one placed Checked meds and labs Review of Systems General: Fatigue, Malaise Pulmonary: Dyspnea Neurological: Weakness Objective Exam Vital Signs Vital Signs Date Time Temp Pulse Resp B/P (MAP) Pulse Ox O2 Delivery O2 Flow Rate FiO2 12/11/20 21:47 Nasal Cannula 4.00 12/11/20 20:45 92 12/11/20 17:25 36.4 107 20 108/64 (79) Capillary Refill : General Appearance: No Apparent Distress, WD/WN, Anxious, Chronically ill, Obese HEENT: PERRL/EOMI, Normal ENT Inspection, Pharynx Normal Neck: Full Range of Motion, Normal Inspection, Non Tender, Supple, Carotid Bruit Respiratory: Chest Non Tender, No Accessory Muscle Use, No Respiratory Distress, Crackles, Decreased Breath Sounds Cardiovascular: Regular Rate, Rhythm, No Gallop, No JVD, No Murmur, Normal Peripheral Pulses Gastrointestinal: Normal Bowel Sounds, No Organomegaly, No Pulsatile Mass, Non Tender, Soft Back: Normal Inspection, No CVA Tenderness, No Vertebral Tenderness Extremity: Normal Capillary Refill, Normal Inspection, Normal Range of Motion, Non Tender, No Calf Tenderness, Pedal Edema Neurologic/Psychiatric: Alert, Oriented x3, No Motor/Sensory Deficits, carbon brusher assembler II- XII Norm as Tested, Depressed Affect, Motor Weakness (generalized all extremities 3/5) Skin: Normal Color, Warm/Dry Lymphatic: No Adenopathy Results/Procedures Lab Patient resulted labs reviewed. FIM Transfers Therapy Code Descriptions/Definitions Functional [place] Measure: 0=Not Assessed/NA 4=Minimal Assistance 1=Total Assistance 5=Supervision or Setup 2=Maximal Assistance 6=Modified [place] 3=Moderate Assistance 7=Complete IndependenceSCALE: Activities may be completed with or without assistive devices. 9-Lnhhllhmud-zlhcyvo completes the activity by him/herself with no assistance from a helper. 5-Set-up or Clean-up Assistance-helper sets up or cleans up; patient completes activity. [place] assists only prior to or following the activity. 4-Supervision or Touching Assistance-helper provides verbal cues and/or touching/steadying and/or contact guard assistance as patient completes activity. Assistance may be provided throughout the activity or intermittently. 3-Partial/Moderate Assistance-helper does LESS THAN HALF the effort. [place] lifts, holds or supports trunk or limbs, but provides less than half the effort. 2-Substantial/Maximal Assistance-helper does MORE THAN HALF the effort. [place] lifts or holds trunk or limbs and provides more than half the effort. 6-Ktjnstdyy-zzgpwr does ALL the effort. Patient does none of the effort to complete the activity. Or, the assistance of 2 or more helpers is required for the patient to complete the activity. If activity was not attempted, code reason: 7-Patient Refused. 9-Not Applicable-not attempted and the patient did not perform the activity before the current illness, exacerbation or injury. 10-Not Attempted due to Environmental Limitations-(lack of equipment, weather restraints, etc.). 88-Not Attempted due to Medical Conditions or Safety Concerns. Roll Left to Right (QC): 3 Sit to Lying (QC): 2 Sit to Stand (QC): 1 Chair/Vib-tb-Onuyl Xfer(QC): 1 Car Transfer (QC): 88 (unsafe to attempt due to heavy need for assist. ) Gait Training Walk 10 feet (QC): 88 Walk 50 ft with 2 Turns(QC): 88 Walk 150 ft (QC): 88 Walking 10ft/uneven surface-QC: 88 Wheelchair Training Does the Pt Use a Wheelchair?: Yes Wheel 50 ft with 2 turns (QC): 4 Wheel 150 ft (QC): 9 Type of Wheelchair: Manual Stair Training 1 Step (curb) (QC): 88 4 Steps (QC): 88 12 Steps (QC): 88 Balance Picking up an Object (QC): 88 ADL-Treatment Eating (QC): 6 Oral Hygiene (QC): 7 Bathing Location: L Arm, R Arm, L Upper Leg, R Upper Leg, Chest, Abdomen, Perineal Area Shower/Bathe Self (QC): 1 (Pt. is able to bathe upper body with cues while seated on shower chair. Pt. is able to bathe bilateral feet using LH sponge. He requires assistance of sit-stand lift for standing so that OT can thoroughly cleanse yo area. Pt. requires assistance to wash hair, and dry self.) Upper Body Dressing (QC): 3 (Min assist due to fatigue and placement of IV.) Lower Body Dressing (QC): 1 (Pt. is able to thread bilateral LE through underwear using law office receptionist, but requires the assistance of sit-stand lift so that OT can don over hips.) On/Off Footwear (QC): 2 Toileting Hygiene (QC): 1 (Pt. is able to state that he has to have a BM. He is on shower chair so OT puts shower chair over toilet. Pt. 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 Obesity DM Neuropathy Anemia O2 dependence Plan: IRF protocol Monitor O2 O2 supplement 12/05/20: O2 maintained IRF protocol Cardiology consultation appreciated Midline replacement 12/06/20: Cardiology consult appreciated Decrease insulin Midline Monitor closely 12/07/20: Monitor closely O2 wean Increase acitivity Maintain Remeron and Melatonin 12/08/20: Monitor closely Check labs in am Monitor tachycardia Remeron and Melatonin 12/09/20: Labs normal Improved strength Weaning O2 Monitor insomnia Increase insulin 12/10/20: Monitor O2 Increase strength Severe myopathy of legs 12/11/20: Difficult to progress Continue therapy May need NHP (1) COVID-19 (2) RICHY on CPAP (3) Obesity (4) Diabetes (5) Hypertension (6) Edema (7) Neuropathy (8) Anemia (9) Advanced age DEANNA BOO DO Dec 11, 2020 10:35
--- NOTE | 2020-12-11 11:02 | Physical Therapy Daily Note ---
PT Daily Note-Current Subjective Pt sitting in recliner upon arrival. Pt agrees to PT/OT co-treat. Pain Location: No Pain Reported Mental Status Patient Orientation: Person, Place Attachments: Oxygen (4L with tx ) Transfers SCALE: Activities may be completed with or without assistive devices. 2-Yohlnyfntu-yjxiwer completes the activity by him/herself with no assistance from a helper. 5-Set-up or Clean-up Assistance-helper sets up or cleans up; patient completes activity. [place] assists only prior to or following the activity. 4-Supervision or Touching Assistance-helper provides verbal cues and/or touching/steadying and/or contact guard assistance as patient completes activity. Assistance may be provided throughout the activity or intermittently. 3-Partial/Moderate Assistance-helper does LESS THAN HALF the effort. [place] lifts, holds or supports trunk or limbs, but provides less than half the effort. 2-Substantial/Maximal Assistance-helper does MORE THAN HALF the effort. [place] lifts or holds trunk or limbs and provides more than half the effort. 8-Zmysiefvn-jokvmf does ALL the effort. Patient does none of the effort to complete the activity. Or, the assistance of 2 or more helpers is required for the patient to complete the activity. If activity was not attempted, code reason: 7-Patient Refused. 9-Not Applicable-not attempted and the patient did not perform the activity before the current illness, exacerbation or injury. 10-Not Attempted due to Environmental Limitations-(lack of equipment, weather restraints, etc.). 88-Not Attempted due to Medical Conditions or Safety Concerns. Sit to Stand (QC): 2 Weight Bearing Full Weight Bearing Full Weight Bearing Wheelchair Training Does the Pt Use a Wheelchair?: Yes Wheel 50 ft with 2 turns (QC): 4 Wheel 150 ft (QC): 4 Type of Wheelchair: Manual Exercises Seated Therapy Exercises: Ankle pumps, Long arc quads, Hip flexion, Kicking activity Seated Reps: 15 Treatments Pt. seen for co-treatment with PT due to skilled need of two therapists. Pt. pr esents with significant weakness. Pt. was transferred to wheelchair with use of sit-stand lift. Once in therapy gym, he worked on sit-stands in parallel bars. Pt. stood x4 this date. PT facilitated quad muscles and knee block while OT facilitated glute engagement and upright posture. Once in stand, OT assisted with hand positioning on bars. Attempted different positions with hand placement, to see if this would encourage a better upright posture. Pt. only able to stand approximately 15-20 seconds at a time. Pt. then requests to sit back down quickly. By end of session, pt. is very fatigued. Pt. continues to be encouraged to breathe in deeply through the nose, and out through the mouth. Therapy used sit-stand lift to transfer back to chair. All needs met up in chair. Assessment Current Status: Fair Progress SOA & fatigues quickly. Repeated VC for Pursed lip breathing, pt continually mouth breathes and cannot catch his breath. Pt continues to state that "if I could only stand, get my legs under me then I could walk". PT Short Term Goals Short Term Goals Time Frame: Dec 11, 2020 Roll Left & Right: 4 Sit to lyin Lying to sitting on side of be: 4 Sit to stand: 3 Chair/pbw-qy-letwr transfer: 3 Walk 10 feet: 3 Walk 50 feet with two turns: 3 PT Event Security Officer Goals Senior Living Goals PT Event Security Officer Goals Time Frame: Jan 01, 2021 Roll Left & Right (QC): 6 Sit to Lying (QC): 6 Lying-Sitting on Side/Bed(QC): 6 Sit to Stand (QC): 6 Chair/Mmx-rd-Gzhgv Xfer(QC): 6 Toilet Transfer (QC): 6 Car Transfer (QC): 6 Does the Patient Walk: No and Walking Goal IS indicated Walk 10 feet (QC): 6 Walk 50ft with 2 Turns (QC): 6 Walk 150 ft (QC): 6 Walking 10ft on Uneven Surface: 4 1 Step (curb) (QC): 4 4 Steps (QC): 4 12 Steps (QC): 4 Picking up an Object (QC): 5 Does the Pt use WC or Scooter?: No Wheel 50 feet with 2 turns (QC: 9 Wheel 150 feet: 9 PT Plan Problem List Problem List: Activity Tolerance, Functional Strength, Balance, Transfer Treatment/Plan Treatment Plan: Continue Plan of Care Treatment Plan: Bed Mobility, Education, Functional Activity Erick, Functional Strength, Group Therapy, Gait, Safety, Therapeutic Exercise, Transfers Treatment Duration: Jan 01, 2021 Frequency: At least 5 of 7 days/Wk (IRF) Estimated Hrs Per Day: Other (see notation) Patient and/or Family Agrees t: Yes Safety Risks/Education Patient Education: Transfer Techniques, Issued Written HEP, Correct Pos itioning, W/C Management, Safety Issues Teaching Recipient: Patient Teaching Methods: Discussion Response to Teaching: Reinforcement Needed Time/GCodes Time In: 1000 Time Out: 1100 Total Billed Treatment Time: 60 Total Billed Treatment 1, WCH (15m), EX (15m) & FA x2 (30m) Co-treat w/OT for 60m ([id number]) AMADOU CASTILLO BOTTLE CLEANER Dec 11, 2020 11:02
--- NOTE | 2020-12-11 11:52 | Occupational Ther Daily Note ---
OT Current Status-Daily Note Subjective No pain reported. Pt. indicates that he just feels "weak." Mental Status/Objective Patient Orientation: Person, Place, Time, Situation Attachments: Oxygen ADL-Treatment Therapy Code Descriptions/Definitions Functional [place] Measure: 0=Not Assessed/NA 4=Minimal Assistance 1=Total Assistance 5=Supervision or Setup 2=Maximal Assistance 6=Modified [place] 3=Moderate Assistance 7=Complete IndependenceSCALE: Activities may be completed with or without assistive devices. 7-Fxbprprert-zdezoan completes the activity by him/herself with no assistance from a helper. 5-Set-up or Clean-up Assistance-helper sets up or cleans up; patient completes a ctivity. [place] assists only prior to or following the activity. 4-Supervision or Touching Assistance-helper provides verbal cues and/or touching/steadying and/or contact guard assistance as patient completes activity. Assistance may be provided throughout the activity or intermittently. 3-Partial/Moderate Assistance-helper does LESS THAN HALF the effort. [place] lifts, holds or supports trunk or limbs, but provides less than half the effort. 2-Substantial/Maximal Assistance-helper does MORE THAN HALF the effort. [place] lifts or holds trunk or limbs and provides more than half the effort. 0-Izwxaqpfp-nybrss does ALL the effort. Patient does none of the effort to complete the activity. Or, the assistance of 2 or more helpers is required for the patient to complete the activity. If activity was not attempted, code reason: 7-Patient Refused. 9-Not Applicable-not attempted and the patient did not perform the activity before the current illness, exacerbation or injury. 10-Not Attempted due to Environmental Limitations-(lack of equipment, weather restraints, etc.). 88-Not Attempted due to Medical Conditions or Safety Concerns. Eating (QC): 5 Lower Body Dressing (QC): 3 (Mod assist to don shoes. OT places feet in front of pt. to block pt's own feet.) Other Treatment Pt. seen for co-treatment with PT due to skilled need of two therapists. Pt. presents with significant weakness. Pt. was transferred to wheelchair with use of sit-stand lift. Once in therapy gym, he worked on sit-stands in parallel bars. Pt. stood x4 this date. PT facilitated quad muscles and knee block while OT facilitated glute engagement and upright posture. Once in stand, OT assisted with hand positioning on bars. Attempted different positions with hand placement, to see if this would encourage a better upright posture. Pt. only able to stand approximately 15-20 seconds at a time. Pt. then requests to sit back down quickly. By end of session, pt. is very fatigued. Pt. continues to be encouraged to breathe in deeply through the nose, and out through the mouth. Therapy used sit-stand lift to transfer back to chair. All needs met up in chair. Education OT Patient Education: Correct positioning, Exercise program, Modified ADL techniques, Progress toward Goal/Update tx plan, Purpose of tx/functional activi ties, Reviewed precautions, Rehab process, Transfer techniques Teaching Recipient: Patient Teaching Methods: Demonstration, Discussion Response to Teaching: Verbalize Understanding, Return Demonstration OT Short Term Goals Short Term Goals Time Frame: Dec 11, 2020 Eatin Oral hygiene: 88 Toileting hygiene: 2 Shower/bathe self: 3 Upper body dressin Lower body dressin Putting on/taking off footwear: 6 OT Railroad Detective Goals Correction Goals Time Frame: Dec 25, 2020 Eating (QC): 6 Oral Hygiene (QC): 6 Toileting Hygiene (QC): 5 Shower/Bathe Self (QC): 5 Upper Body Dressing (QC): 6 Lower Body Dressing (QC): 4 On/Off Footwear (QC): 6 Additional Goals: 1-Demonstrate ADL Tasks, 2-Verbalize Understanding, 3- ImproveStrength/Erick 1=Demonstrate adherence to instructed precautions during ADL tasks. 2=Patient will verbalize/demonstrate understanding of assistive devices/modifications for ADL. 3=Patient will improve strength/tolerance for activity to enable patient to perform ADL's. OT Education/Plan Problem List/Assessment Assessment: Decreased Activ Tolerance, Decreased UE Strength, Dependent Transfers, Impaired Funct Balance, Impaired I ADL's, Impaired Self-Care Skills, Restricted Funct UE ROM Discharge Recommendations Plan/Recommendations: Continue POC Therapy Discharge Recommendati: Scheduled Assistance Treatment Plan/Plan of Care Treatment,Training & Education: Yes Patient would benefit from OT for education, treatment and training to promote independence in ADL's, mobility, safety and/or upper extremity function for ADL's. Plan of Care: ADL Retraining, Caregiver Training, Concurrent Therapy, Functional Mobility, Group Exercise/Act as Ind, UE Funct Exercise/Act, UE Neuromus Re-Ed/Coord, W/C Management Training Treatment Duration: Dec 25, 2020 Frequency: Modified Program (IRF) Estimated Hrs Per Day: 1 hour per day Agreement: Yes Rehab Potential: Fair Time/GCodes Start Time: 10:00 Stop Time: 11:00 Total Time Billed (hr/min): 60 Billed Treatment Time 1, FA x 60minutes Co-treatment with PT. Please see above note for designated roles. CAMILA SINCLAIR OT Dec 11, 2020 11:52
[2020-12-11 17:25] VITALS: BP 108/64
[2020-12-11] MEDS: MELATONIN 3 MG TABLET PO SCH (21:04)
[2020-12-11] MEDS: MIRTAZAPINE 15 MG (REMERON) TAB PO SCH (21:05)
[2020-12-11] MEDS: CATHETER FLUSH 10 ML SYR IV SCH (22:36)
[2020-12-12] MEDS: CATHETER FLUSH 10 ML SYR IV SCH ×3 (05:19→22:30)
[2020-12-12] MEDS: inSUlin ASPART (NovoLOG) 1 UNIT/0.01 ML (CHARGE PER UNIT) SC SCH ×4 (05:19→20:30)
[2020-12-12 06:30] VITALS: BP 152/77
[2020-12-12] MEDS: polyethylene glycoL POWDER 17 GM (MIRALAX) PACK PO SCH ×2 (07:59→21:00)
[2020-12-12] MEDS: SENNA W/DOCUSATE (SENOKOT S) TABLET PO SCH ×2 (07:59→21:00)
[2020-12-12] MEDS: DOCUSATE SODIUM 100 MG (COLACE) CAP PO SCH ×2 (07:59→21:00)
[2020-12-12] MEDS: SALIVA STIMULANT MOUTH SPRAY (BIOTENE) 1.5 OZ MM SCH ×4 (08:12→20:30)
[2020-12-12] MEDS: FLUTICASONE NASAL SPRAY (FLONASE) 16 GM BTL NS SCH (08:12)
[2020-12-12] MEDS: SALINE NASAL SPRAY (OCEAN) 45 ML BTL NS SCH ×3 (08:13→20:31)
[2020-12-12] MEDS: predniSONE 10 MG TAB PO SCH (08:14)
[2020-12-12] MEDS: TAMSULOSIN 0.4 MG (FLOMAX) CAP PO SCH (08:14)
[2020-12-12] MEDS: meTOprolol TARTRATE 50 MG (LOPRESSOR) TAB PO SCH ×2 (08:14→20:27)
[2020-12-12] MEDS: APIXABAN 5 MG (ELIQUIS) TABLET PO SCH ×2 (08:14→20:28)
[2020-12-12] MEDS: FINASTERIDE (PROSCAR) 5 MG TAB PO SCH (08:14)
[2020-12-12] MEDS: PANTOPRAZOLE 40 MG (PROTONIX) TAB PO SCH (08:14)
[2020-12-12] MEDS: ASCORBIC ACID (VIT C) 500 MG TABLET PO SCH ×2 (08:14→17:17)
[2020-12-12] MEDS: ASPIRIN 81 MG CHEW (CHILDREN'S ASA) PO SCH (08:14)
[2020-12-12] MEDS: ACETAMINOPHEN 325 MG TABLET PO SCH ×3 (08:14→20:28)
[2020-12-12] MEDS: VITAMIN D3 25 MCG (1,000 UNITS) TABLET PO SCH (08:14)
[2020-12-12] MEDS: GABAPENTIN 100 MG (NEURONTIN) CAP PO SCH ×3 (08:14→20:28)
--- NOTE | 2020-12-12 10:49 | PM&R Progress Note ---
Subjective HPI/CC On Admission Date Seen by Provider: Dec 12, 2020 Time Seen by Provider: 11:00 Subjective/Events-last exam 12/12/20: Pt doing a lot better Having a lot of pain, takes Oxycodone for his foot and leg pain Bowels are moving Sleeping better Pt very well could require a long-term since he lives alone and is just not progressing well 12/11/20: No major issues Pretty much has plateaued and not made much progress with ambulation Epistaxis of the left nostril Nasal sprays will be continued Re-check and check with insurance coverage but he very well may need to be in a long-term 12/10/20: Pt doing pretty well Slept on and off last night Remains on 4 liters of O2 Swelling in his feel is pretty minimal Did not use his BiPAP last night and that likely is the cause of not sleeping w ell 12/09/20: Pt slept pretty well Bowels are moving PLTs are 97, 000 Normal WBC down from when he first arrived Denies any significant issues Trying to get strong enough to walk 12/08/20: Slept well last night Remeron and Melatonin has helped him a lot Sinus tachy last night BM 12/06/20 so laxatives given No other issues 12/07/20: Slept better Yonker provided for phlem HR 60 Appreciate Cardiology 4L/min O2 BM 12/06/20 12/06/20: HR 122 Cardiology consulted Sugar 54 so decreasing insulin BM++ No pain reported No sleeping well so added hypnotics of Melatonin and Remeron 12/05/20: Patient doing well Worn out from fatigue Sugars are ok No pain reported Tachycardic so consulting Dr Carranza Midline was accidently pulled out so need a new one placed Checked meds and labs Review of Systems General: Fatigue, Malaise Pulmonary: Dyspnea Musculoskeletal: leg pain, foot pain Objective Exam Vital Signs Vital Signs Date Time Temp Pulse Resp B/P (MAP) Pulse Ox O2 Delivery O2 Flow Rate FiO2 12/12/20 21:00 Nasal Cannula 4.00 12/12/20 19:25 94 12/12/20 16:25 36.5 105 20 137/75 (95) Capillary Refill : General Appearance: No Apparent Distress, WD/WN, Anxious, Chronically ill, Obese HEENT: PERRL/EOMI, Normal ENT Inspection, Pharynx Normal Neck: Full Range of Motion, Normal Inspection, Non Tender, Supple, Carotid Bruit Respiratory: Chest Non Tender, No Accessory Muscle Use, No Respiratory Distress, Crackles, Decreased Breath Sounds Cardiovascular: Regular Rate, Rhythm, No Gallop, No JVD, No Murmur, Normal Pe ripheral Pulses Gastrointestinal: Normal Bowel Sounds, No Organomegaly, No Pulsatile Mass, Non Tender, Soft Back: Normal Inspection, No CVA Tenderness, No Vertebral Tenderness Extremity: Normal Capillary Refill, Normal Inspection, Normal Range of Motion, Non Tender, No Calf Tenderness, Pedal Edema Neurologic/Psychiatric: Alert, Oriented x3, No Motor/Sensory Deficits, 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 FIM Transfers Therapy Code Descriptions/Definitions Functional [place] Measure: 0=Not Assessed/NA 4=Minimal Assistance 1=Total Assistance 5=Supervision or Setup 2=Maximal Assistance 6=Modified [place] 3=Moderate Assistance 7=Complete IndependenceSCALE: Activities may be completed with or without assistive devices. 8-Mltjjqiqkc-kqvfjgs completes the activity by him/herself with no assistance from a helper. 5-Set-up or Clean-up Assistance-helper sets up or cleans up; patient completes activity. [place] assists only prior to or following the activity. 4-Supervision or Touching Assistance-helper provides verbal cues and/or touching/steadying and/or contact guard assistance as patient completes activity. Assistance may be provided throughout the activity or intermittently. 3-Partial/Moderate Assistance-helper does LESS THAN HALF the effort. [place] lifts, holds or supports trunk or limbs, but provides less than half the effort. 2-Substantial/Maximal Assistance-helper does MORE THAN HALF the effort. [place] lifts or holds trunk or limbs and provides more than half the effort. 1-Xkeejdeyd-mvumej does ALL the effort. Patient does none of the effort to co mplete the activity. Or, the assistance of 2 or more helpers is required for the patient to complete the activity. If activity was not attempted, code reason: 7-Patient Refused. 9-Not Applicable-not attempted and the patient did not perform the activity before the current illness, exacerbation or injury. 10-Not Attempted due to Environmental Limitations-(lack of equipment, weather restraints, etc.). 88-Not Attempted due to Medical Conditions or Safety Concerns. Roll Left to Right (QC): 3 Sit to Lying (QC): 2 Sit to Stand (QC): 2 Chair/Qgr-rx-Gpxze Xfer(QC): 1 Car Transfer (QC): 88 (unsafe to attempt due to heavy need for assist. ) Gait Training Walk 10 feet (QC): 88 Walk 50 ft with 2 Turns(QC): 88 Walk 150 ft (QC): 88 Walking 10ft/uneven surface-QC: 88 Wheelchair Training Does the Pt Use a Wheelchair?: Yes Wheel 50 ft with 2 turns (QC): 4 Wheel 150 ft (QC): 4 Type of Wheelchair: Manual Stair Training 1 Step (curb) (QC): 88 4 Steps (QC): 88 12 Steps (QC): 88 Balance Picking up an Object (QC): 88 ADL-Treatment Eating (QC): 5 Oral Hygiene (QC): 7 Bathing Location: L Arm, R Arm, L Upper Leg, R Upper Leg, Chest, Abdomen, Perineal Area Shower/Bathe Self (QC): 1 (Pt. is able to bathe upper body with cues while seated on shower chair. Pt. is able to bathe bilateral feet using LH sponge. He requires assistance of sit-stand lift for standing so that OT can thoroughly cleanse yo area. Pt. requires assistance to wash hair, and dry self.) Upper Body Dressing (QC): 3 (Min assist due to fatigue and placement of IV.) Lower Body Dressing (QC): 3 (Mod assist to don shoes. OT places feet in front of pt. to block pt's own feet.) On/Off Footwear (QC): 2 Toileting Hygiene (QC): 1 (Pt. is able to state that he has to have a BM. He is on shower chair so OT puts shower chair over toilet. Pt. 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 Obesity DM Neuropathy Anemia O2 dependence Plan: IRF protocol Monitor O2 O2 supplement 12/05/20: O2 maintained IRF protocol Cardiology consultation appreciated Midline replacement 12/06/20: Cardiology consult appreciated Decrease insulin Midline Monitor closely 12/07/20: Monitor closely O2 wean Increase acitivity Maintain Remeron and Melatonin 12/08/20: Monitor closely Check labs in am Monitor tachycardia Remeron and Melatonin 12/09/20: Labs normal Improved strength Weaning O2 Monitor insomnia Increase insulin 12/10/20: Monitor O2 Increase strength Severe myopathy of legs 12/11/20: Difficult to progress Continue therapy May need NHP 12/12/20: Pain control with Oxycodone Monitor bowels Monitor O2 (1) COVID-19 (2) RICHY on CPAP (3) Obesity (4) Diabetes (5) Hypertension (6) Edema (7) Neuropathy (8) Anemia (9) Advanced age DEANNA BOO DO Dec 12, 2020 10:49
[2020-12-12] MEDS: ADVAIR HFA 115/21 MCG INHALER 8 GM IH SCH ×2 (11:47→19:25)
[2020-12-12] MEDS: UMECLIDINIUM BROMIDE (INCRUSE ELLIPTA) 7'S IH SCH (11:47)
--- NOTE | 2020-12-12 12:16 | Physical Therapy Daily Note ---
PT Daily Note-Current Subjective Pt asleep sitting up in bed upon arrival. Pt agrees to PT. Pain Location: No Pain Reported Comment: Pt reports no pain now but had some overnight. Mental Status Patient Orientation: Person, Place Attachments: Oxygen Transfers SCALE: Activities may be completed with or without assistive devices. 2-Mehjzdmlzq-ofkzvgm completes the activity by him/herself with no assistance from a helper. 5-Set-up or Clean-up Assistance-helper sets up or cleans up; patient completes activity. [place] assists only prior to or following the activity. 4-Supervision or Touching Assistance-helper provides verbal cues and/or touching/steadying and/or contact guard assistance as patient completes activity. Assistance may be provided throughout the activity or intermittently. 3-Partial/Moderate Assistance-helper does LESS THAN HALF the effort. [place] lifts, holds or supports trunk or limbs, but provides less than half the effort. 2-Substantial/Maximal Assistance-helper does MORE THAN HALF the effort. [place] lifts or holds trunk or limbs and provides more than half the effort. 1-Gjgbimtra-nexcmf does ALL the effort. Patient does none of the effort to complete the activity. Or, the assistance of 2 or more helpers is required for the patient to complete the activity. If activity was not attempted, code reason: 7-Patient Refused. 9-Not Applicable-not attempted and the patient did not perform the activity before the current illness, exacerbation or injury. 10-Not Attempted due to Environmental Limitations-(lack of equipment, weather restraints, etc.). 88-Not Attempted due to Medical Conditions or Safety Concerns. Lying to Sitting/Side of Bed(Q: 3 Sit to Stand (QC): 2 Chair/Lqt-lg-Muoeh Xfer(QC): 2 Weight Bearing Full Weight Bearing Full Weight Bearing Exercises Supine Ex: Ankle pumps, Quad Set, Glut sets, Heel Slides, Straight leg raise, Hip abd/add Supine Reps: 15 (2 sets) Treatments 900-1000: Pt completes Supine & Seated Ex from HEP. Pt voices concerns/questions about getting into house, ambulating stairs and ambulation in house. Pt advises will check renting AE including chair lift for home stairs and sit to stand lift, having ramp installed. WAITER/WAITRESS [employer] encourages pt to complete work himself by getting stronger and standing with staff. SW will check on pt's CPAP mask through [employer] as pt asked. All needs met, call light in hand. [id number]: Assisted pt with transfer from bed to recliner as pt requested. All needs met, call light in hand. Assessment Current Status: Poor Progress Pt continues to report unrealistic progress, stating he can just get equipment (ie. ramp, chair lift, sit to stand lift if needed). Pt reports son works as copy clerk and may not be available for support or taking pt to appointments. PT Short Term Goals Short Term Goals Time Frame: Dec 11, 2020 Roll Left & Right: 4 Sit to lyin Lying to sitting on side of be: 4 Sit to stand: 3 Chair/hhm-bd-boqta transfer: 3 Walk 10 feet: 3 Walk 50 feet with two turns: 3 PT Payment Analyst Goals Payment Analyst Goals PT Correction Goals Time Frame: Jan 01, 2021 Roll Left & Right (QC): 6 Sit to Lying (QC): 6 Lying-Sitting on Side/Bed(QC): 6 Sit to Stand (QC): 6 Chair/Awo-ka-Pffwp Xfer(QC): 6 Toilet Transfer (QC): 6 Car Transfer (QC): 6 Does the Patient Walk: No and Walking Goal IS indicated Walk 10 feet (QC): 6 Walk 50ft with 2 Turns (QC): 6 Walk 150 ft (QC): 6 Walking 10ft on Uneven Surface: 4 1 Step (curb) (QC): 4 4 Steps (QC): 4 12 Steps (QC): 4 Picking up an Object (QC): 5 Does the Pt use WC or Scooter?: No Wheel 50 feet with 2 turns (QC: 9 Wheel 150 feet: 9 PT Plan Problem List Problem List: Activity Tolerance, Functional Strength, Safety, Balance, Transfer Treatment/Plan Treatment Plan: Continue Plan of Care Treatment Plan: Bed Mobility, Education, Functional Activity Erick, Functional Strength, Group Therapy, Gait, Safety, Therapeutic Exercise, Transfers Treatment Duration: Jan 01, 2021 Frequency: At least 5 of 7 days/Wk (IRF) Estimated Hrs Per Day: Other (see notation) Patient and/or Family Agrees t: Yes Safety Risks/Education Patient Education: Transfer Techniques, Correct Positioning, Safety Issues Teaching Recipient: Patient Teaching Methods: Discussion Response to Teaching: Reinforcement Needed Time/GCodes Time In: 900 Time Out: 1320 Total Billed Treatment Time: 75 Total Billed Treatment 900-1000: 1, EX x2 (35m) & FA x2 (25m) [id number]: 1, FA AMADOU CASTILLO WAITER/WAITRESS [employer]OCK[employer]GE Dec 12, 2020 12:15
--- NOTE | 2020-12-12 13:01 | Occupational Ther Daily Note ---
OT Current Status-Daily Note Subjective No pain reported. Appearance Pt. asleep in bed when OT entered room. Mental Status/Objective Patient Orientation: Person, Place Attachments: Oxygen ADL-Treatment Therapy Code Descriptions/Definitions Functional [place] Measure: 0=Not Assessed/NA 4=Minimal Assistance 1=Total Assistance 5=Supervision or Setup 2=Maximal Assistance 6=Modified [place] 3=Moderate Assistance 7=Complete IndependenceSCALE: Activities may be completed with or without assistive devices. 7-Xpwhybtpji-xnnxlvv completes the activity by him/herself with no assistance from a helper. 5-Set-up or Clean-up Assistance-helper sets up or cleans up; patient completes activity. [place] assists only prior to or following the activity. 4-Supervision or Touching Assistance-helper provides verbal cues and/or touching/steadying and/or contact guard assistance as patient completes activity. Assistance may be provided throughout the activity or intermittently. 3-Partial/Moderate Assistance-helper does LESS THAN HALF the effort. [place] lifts, holds or supports trunk or limbs, but provides less than half the effort. 2-Substantial/Maximal Assistance-helper does MORE THAN HALF the effort. [place] lifts or holds trunk or limbs and provides more than half the effort. 6-Ufwuexxut-msigws does ALL the effort. Patient does none of the effort to complete the activity. Or, the assistance of 2 or more helpers is required for the patient to complete the activity. If activity was not attempted, code reason: 7-Patient Refused. 9-Not Applicable-not attempted and the patient did not perform the activity before the current illness, exacerbation or injury. 10-Not Attempted due to Environmental Limitations-(lack of equipment, weather restraints, etc.). 88-Not Attempted due to Medical Conditions or Safety Concerns. Eating (QC): 5 Shower/Bathe Self (QC): 3 (Mod assist. Pt. is able to bathe upper body, and front yo area at bed level. Requires assistance to bathe rear yo area and bilateral LE.) Upper Body Dressing (QC): 4 Lower Body Dressing (QC): 7 (Pt. does not have shorts clean, and declines putting on any long pants. OT washes shorts for him.) On/Off Footwear: 2 Toileting Hygiene (QC): 1 Other Treatment OT encourages pt. to complete sponge bath at bed level. This is to be attempted in this manner to see if pt. can achieve more independence with it. He has practiced in the shower, and sitting on side of bed, and has had great difficulty with bending over, with SOA, and with fatigue in general. Pt. agrees and OT supplies all washcloths/towels. Pt. is able to wash bilateral UE and front yo area with cues. When rolling to side, it is noted that pt. has been incontinent of bowel and urine in bed. OT cleanses pt. in all areas and changes bed squares. OT applies cream to bottom and front yo area and applies moisture protection pad to keep moisture from groin area. OT washes bilateral LE, and applies lotion to bilateral LE. Pt. is able to apply lotion to UE and chest. Fresh gown is donned in bed, and bed put into trindelenburg position so that pt. can assist himself with transfer toward HOB. Pt. is given red theraband and completes bilateral UE exercises, x 3 exercises, x 10 reps, x 2 sets. All needs are met and pt. is resting quietly at end of session. Education OT Patient Education: Correct positioning, Exercise program, Modified ADL techniques, Progress toward Goal/Update tx plan, Purpose of tx/functional activities, Reviewed precautions, Rehab process, Transfer techniques Teaching Recipient: Patient Teaching Methods: Demonstration, Discussion Response to Teaching: Verbalize Understanding, Return Demonstration OT Short Term Goals Short Term Goals Time Frame: Dec 11, 2020 Eatin Oral hygiene: 88 Toileting hygiene: 2 Shower/bathe self: 3 Upper body dressin Lower body dressin Putting on/taking off footwear: 6 OT Senior Care Goals Senior Care Goals Time Frame: Dec 25, 2020 Eating (QC): 6 Oral Hygiene (QC): 6 Toileting Hygiene (QC): 5 Shower/Bathe Self (QC): 5 Upper Body Dressing (QC): 6 Lower Body Dressing (QC): 4 On/Off Footwear (QC): 6 Additional Goals: 1-Demonstrate ADL Tasks, 2-Verbalize Understanding, 3-ImproveStrength/Erick 1=Demonstrate adherence to instructed precautions during ADL tasks. 2=Patient will verbalize/demonstrate understanding of assistive devices/modifications for ADL. 3=Patient will improve strength/tolerance for activity to enable patient to perform ADL's. OT Education/Plan Problem List/Assessment Assessment: Decreased Activ Tolerance, Decreased UE Strength, Dependent Transfers, Impaired Bed Mobility, Impaired Funct Balance, Impaired I ADL's, Impaired Self-Care Skills, Restricted Funct UE ROM Discharge Recommendations Plan/Recommendations: Continue POC Therapy Discharge Recommendati: Post Acute OT Treatment Plan/Plan of Care Treatment,Training & Education: Yes Patient would benefit from OT for education, treatment and training to promote independence in ADL's, mobility, safety and/or upper extremity function for ADL's. Plan of Care: ADL Retraining, Caregiver Training, Concurrent Therapy, Functional Mobility, Group Exercise/Act as Ind, UE Funct Exercise/Act, UE Neuromus Re-Ed/Coord, W/C Management Training Treatment Duration: Dec 25, 2020 Frequency: Modified Program (IRF) Estimated Hrs Per Day: 1 hour per day Agreement: Yes Rehab Potential: Fair Time/GCodes Start Time: 10:30 Stop Time: 11:30 Total Time Billed (hr/min): 60 Billed Treatment Time 1, ADL x 45minutes, Ex x 15minutes CAMILA SINCLAIR OT Dec 12, 2020 13:01
--- NOTE | 2020-12-12 15:28 | Occupational Ther Daily Note ---
OT Current Status-Daily Note Subjective No pain reported. Mental Status/Objective Patient Orientation: Person, Place ADL-Treatment Therapy Code Descriptions/Definitions Functional [place] Measure: 0=Not Assessed/NA 4=Minimal Assistance 1=Total Assistance 5=Supervision or Setup 2=Maximal Assistance 6=Modified [place] 3=Moderate Assistance 7=Complete IndependenceSCALE: Activities may be completed with or without assistive devices. 5-Egdfppungq-jvtecfy completes the activity by him/herself with no assistance from a helper. 5-Set-up or Clean-up Assistance-helper sets up or cleans up; patient completes activity. [place] assists only prior to or following the activity. 4-Supervision or Touching Assistance-helper provides verbal cues and/or touching/steadying and/or contact guard assistance as patient completes activity. Assistance may be provided throughout the activity or intermittently. 3-Partial/Moderate Assistance-helper does LESS THAN HALF the effort. [place] lifts, holds or supports trunk or limbs, but provides less than half the effort. 2-Substantial/Maximal Assistance-helper does MORE THAN HALF the effort. [place] lifts or holds trunk or limbs and provides more than half the effort. 5-Sfplvrovx-bsxalv does ALL the effort. Patient does none of the effort to complete the activity. Or, the assistance of 2 or more helpers is required for the patient to complete the activity. If activity was not attempted, code reason: 7-Patient Refused. 9-Not Applicable-not attempted and the patient did not perform the activity before the current illness, exacerbation or injury. 10-Not Attempted due to Environmental Limitations-(lack of equipment, weather restraints, etc.). 88-Not Attempted due to Medical Conditions or Safety Concerns. On/Off Footwear: 2 Toileting Hygiene (QC): 1 Pt. seen for co-treatment with PT due to need of skilled assistance x 2. Noted pt. incontinent of urine in bed, and had spilled part of his lunch on his hospital gown. PT assisted pt. with transfers supine-sit, mod assist. Increased time needed to scoot to EOB. Pt. required assistance to don shoes while seated, as he was unable to do. Pt. stood with use of sit-stand lift. Required assist for yo care in upright position. Pt. was transferred to chair in room, and all needs were met. Education OT Patient Education: Correct positioning, Modified ADL techniques, Progress toward Goal/Update tx plan, Purpose of tx/functional activities, Reviewed precautions, Rehab process, Transfer techniques Teaching Recipient: Patient Teaching Methods: Demonstration, Discussion Response to Teaching: Verbalize Understanding, Return Demonstration OT Short Term Goals Short Term Goals Time Frame: Dec 11, 2020 Eatin Oral hygiene: 88 Toileting hygiene: 2 Shower/bathe self: 3 Upper body dressin Lower body dressin Putting on/taking off footwear: 6 OT Fpc Goals Fpc Goals Time Frame: Dec 25, 2020 Eating (QC): 6 Oral Hygiene (QC): 6 Toileting Hygiene (QC): 5 Shower/Bathe Self (QC): 5 Upper Body Dressing (QC): 6 Lower Body Dressing (QC): 4 On/Off Footwear (QC): 6 Additional Goals: 1-Demonstrate ADL Tasks, 2-Verbalize Understanding, 3- ImproveStrength/Erick 1=Demonstrate adherence to instructed precautions during ADL tasks. 2=Patient will verbalize/demonstrate understanding of assistive devices/modifications for ADL. 3=Patient will improve strength/tolerance for activity to enable patient to perform ADL's. OT Education/Plan Problem List/Assessment Assessment: Decreased Activ Tolerance, Decreased UE Strength, Dependent T ransfers, Impaired Bed Mobility, Impaired Funct Balance, Impaired I ADL's, Impaired Self-Care Skills, Restricted Funct UE ROM Discharge Recommendations Plan/Recommendations: Continue POC Therapy Discharge Recommendati: Post Acute OT Treatment Plan/Plan of Care Treatment,Training & Education: Yes Patient would benefit from OT for education, treatment and training to promote independence in ADL's, mobility, safety and/or upper extremity function for ADL's. Plan of Care: ADL Retraining, Caregiver Training, Concurrent Therapy, Functional Mobility, Group Exercise/Act as Ind, UE Funct Exercise/Act, UE Neuromus Re-Ed/Coord, W/C Management Training Treatment Duration: Dec 25, 2020 Frequency: Modified Program (IRF) Estimated Hrs Per Day: 1 hour per day Agreement: Yes Rehab Potential: Fair Time/GCodes Start Time: 13:05 Stop Time: 13:20 Total Time Billed (hr/min): 15 Billed Treatment Time 1, FA Co-treatment with PT. Please see above note for designated roles. CAMILA SINCLAIR OT Dec 12, 2020 15:28
[2020-12-12 16:25] VITALS: BP 137/75
[2020-12-12] MEDS: MIRTAZAPINE 15 MG (REMERON) TAB PO SCH (20:28)
[2020-12-12] MEDS: MELATONIN 3 MG TABLET PO SCH (20:28)
[2020-12-13 05:37] VITALS: BP 160/66
[2020-12-13] MEDS: inSUlin ASPART (NovoLOG) 1 UNIT/0.01 ML (CHARGE PER UNIT) SC SCH ×4 (06:07→20:23)
[2020-12-13] MEDS: CATHETER FLUSH 10 ML SYR IV SCH ×3 (06:08→20:21)
[2020-12-13] MEDS: PANTOPRAZOLE 40 MG (PROTONIX) TAB PO SCH (07:31)
[2020-12-13] MEDS: APIXABAN 5 MG (ELIQUIS) TABLET PO SCH ×2 (07:31→20:18)
[2020-12-13] MEDS: ASCORBIC ACID (VIT C) 500 MG TABLET PO SCH ×2 (07:31→16:19)
[2020-12-13] MEDS: ACETAMINOPHEN 325 MG TABLET PO SCH ×3 (07:31→20:19)
[2020-12-13] MEDS: predniSONE 10 MG TAB PO SCH (07:31)
[2020-12-13] MEDS: DOCUSATE SODIUM 100 MG (COLACE) CAP PO SCH ×2 (07:32→20:22)
[2020-12-13] MEDS: meTOprolol TARTRATE 50 MG (LOPRESSOR) TAB PO SCH ×2 (07:32→20:19)
[2020-12-13] MEDS: ASPIRIN 81 MG CHEW (CHILDREN'S ASA) PO SCH (07:33)
[2020-12-13] MEDS: TAMSULOSIN 0.4 MG (FLOMAX) CAP PO SCH (07:33)
[2020-12-13] MEDS: VITAMIN D3 25 MCG (1,000 UNITS) TABLET PO SCH (07:33)
[2020-12-13] MEDS: SENNA W/DOCUSATE (SENOKOT S) TABLET PO SCH ×2 (07:33→20:22)
[2020-12-13] MEDS: FINASTERIDE (PROSCAR) 5 MG TAB PO SCH (07:33)
[2020-12-13] MEDS: FLUTICASONE NASAL SPRAY (FLONASE) 16 GM BTL NS SCH (07:33)
[2020-12-13] MEDS: SALINE NASAL SPRAY (OCEAN) 45 ML BTL NS SCH ×3 (07:34→20:22)
[2020-12-13] MEDS: SALIVA STIMULANT MOUTH SPRAY (BIOTENE) 1.5 OZ MM SCH ×4 (07:34→20:21)
[2020-12-13] MEDS: GABAPENTIN 100 MG (NEURONTIN) CAP PO SCH ×3 (07:35→20:19)
[2020-12-13] MEDS: polyethylene glycoL POWDER 17 GM (MIRALAX) PACK PO SCH ×2 (09:44→20:22)
--- NOTE | 2020-12-13 10:23 | Physical Therapy Daily Note ---
PT Daily Note-Current Subjective Pt. agrees to Rx. Still tries to get TRAFFIC RATE COMPUTER to use sit to stand lift for TRFs but after explanation pt. agrees that this wont be practical for home since he lives alone etc. Pain Location: No Pain Reported Mental Status Patient Orientation: Normal For Age Attachments: Oxygen (4L) Transfers SCALE: Activities may be completed with or without assistive devices. 3-Rglxsckgjh-knritch completes the activity by him/herself with no assistance from a helper. 5-Set-up or Clean-up Assistance-helper sets up or cleans up; patient completes activity. [place] assists only prior to or following the activity. 4-Supervision or Touching Assistance-helper provides verbal cues and/or touching/steadying and/or contact guard assistance as patient completes activity. Assistance may be provided throughout the activity or intermittently. 3-Partial/Moderate Assistance-helper does LESS THAN HALF the effort. [place] lifts, holds or supports trunk or limbs, but provides less than half the effort. 2-Substantial/Maximal Assistance-helper does MORE THAN HALF the effort. [place] lifts or holds trunk or limbs and provides more than half the effort. 8-Oclzqforh-xzxtiu does ALL the effort. Patient does none of the effort to complete the activity. Or, the assistance of 2 or more helpers is required for the patient to complete the activity. If activity was not attempted, code reason: 7-Patient Refused. 9-Not Applicable-not attempted and the patient did not perform the activity before the current illness, exacerbation or injury. 10-Not Attempted due to Environmental Limitations-(lack of equipment, weather restraints, etc.). 88-Not Attempted due to Medical Conditions or Safety Concerns. Sit to Stand (QC): 2 (x 4 trials at //bars) Chair/Cui-mn-Kpygh Xfer(QC): 1 pt. at // bars with co Rx OT PT for coordinated use Us and LEs did sit to stands achieving greater full stance than previously with this TRAFFIC RATE COMPUTER. Pt. stood slowly, very taxing but came to full stance x 4 with mod to max assist , seat height raised improving the TRF, pt. stood 20-30 sec ea trial with increased dyspnea, O2 at 4L, sats >90% each trial chair to chair TRFs done with LIKO, in standing pt. did do wt shift /pregait x 8 Weight Bearing Full Weight Bearing Full Weight Bearing Wheelchair Training Does the Pt Use a Wheelchair?: Yes Wheel 50 ft with 2 turns (QC): 5 Type of Wheelchair: Manual needs assist for O2 Exercises Seated Therapy Exercises: Long arc quads, Hip flexion Seated Reps: 10 NuStep Minutes: 8 NuStep Workload: 1 Treatments nustep used for endurance and was TRFd to this with LILIANA, in recliner after Rx, call dinh at hand Assessment Current Status: Good Progress progressing with sit to stand with "pulling up" at // bars PT Short Term Goals Short Term Goals Time Frame: Dec 11, 2020 Roll Left & Right: 4 Sit to lyin Lying to sitting on side of be: 4 Sit to stand: 3 Chair/jue-zn-byyof transfer: 3 Walk 10 feet: 3 Walk 50 feet with two turns: 3 PT Halfway Goals Halfway Goals PT Halfway Goals Time Frame: Jan 01, 2021 Roll Left & Right (QC): 6 Sit to Lying (QC): 6 Lying-Sitting on Side/Bed(QC): 6 Sit to Stand (QC): 6 Chair/Xvc-fw-Xzclr Xfer(QC): 6 Toilet Transfer (QC): 6 Car Transfer (QC): 6 Does the Patient Walk: No and Walking Goal IS indicated Walk 10 feet (QC): 6 Walk 50ft with 2 Turns (QC): 6 Walk 150 ft (QC): 6 Walking 10ft on Uneven Surface: 4 1 Step (curb) (QC): 4 4 Steps (QC): 4 12 Steps (QC): 4 Picking up an Object (QC): 5 Does the Pt use WC or Scooter?: No Wheel 50 feet with 2 turns (QC: 9 Wheel 150 feet: 9 PT Plan Treatment/Plan Treatment Plan: Continue Plan of Care Treatment Plan: Bed Mobility, Education, Functional Activity Erick, Functional Strength, Group Therapy, Gait, Safety, Therapeutic Exercise, Transfers Treatment Duration: Jan 01, 2021 Frequency: At least 5 of 7 days/Wk (IRF) Estimated Hrs Per Day: Other (see notation) Patient and/or Family Agrees t: Yes Safety Risks/Education Patient Education: Transfer Techniques, Correct Positioning, Disease Process, Safety Issues Teaching Recipient: Patient Teaching Methods: Demonstration, Discussion Response to Teaching: Verbalize Understanding, Return Demonstration, Reinforcement Needed Time/GCodes Time In: 930 Time Out: 1015 Total Billed Treatment Time: 45 Total Billed Treatment 1,FA30m,EX15m PT OT co Rx 30m SUSANNA CONNER TRAFFIC RATE COMPUTER Dec 13, 2020 10:23
--- NOTE | 2020-12-13 10:23 | PM&R Progress Note ---
Subjective HPI/CC On Admission Date Seen by Provider: Dec 13, 2020 Time Seen by Provider: 10:30 Subjective/Events-last exam 12/13/20: Patient more alert today and energized No pain reported Oxycodone helps the foot pain Participating with therapy 12/12/20: Pt doing a lot better Having a lot of pain, takes Oxycodone for his foot and leg pain Bowels are moving Sleeping better Pt very well could require a mcc since he lives alone and is just not progressing well 12/11/20: No major issues Pretty much has plateaued and not made much progress with ambulation Epistaxis of the left nostril Nasal sprays will be continued Re-check and check with insurance coverage but he very well may need to be in a mcc 12/10/20: Pt doing pretty well Slept on and off last night Remains on 4 liters of O2 Swelling in his feel is pretty minimal Did not use his BiPAP last night and that likely is the cause of not sleeping well 12/09/20: Pt slept pretty well Bowels are moving PLTs are 97, 000 Normal WBC down from when he first arrived Denies any significant issues Trying to get strong enough to walk 12/08/20: Slept well last night Remeron and Melatonin has helped him a lot Sinus tachy last night BM 12/06/20 so laxatives given No other issues 12/07/20: Slept better Yonker provided for phlem HR 60 Appreciate Cardiology 4L/min O2 BM 12/06/20 12/06/20: HR 122 Cardiology consulted Sugar 54 so decreasing insulin BM++ No pain reported No sleeping well so added hypnotics of Melatonin and Remeron 12/05/20: Patient doing well Worn out from fatigue Sugars are ok No pain reported Tachycardic so consulting Dr Carranza Midline was accidently pulled out so need a new one placed Checked meds and labs Review of Systems General: Fatigue, Malaise Pulmonary: Dyspnea Neurological: Weakness Objective Exam Vital Signs Vital Signs Date Time Temp Pulse Resp B/P (MAP) Pulse Ox O2 Delivery O2 Flow Rate FiO2 12/13/20 22:34 96 12/13/20 21:25 Nasal Cannula 4.00 12/13/20 20:17 114/67 (83) 12/13/20 16:18 36.4 18 96 Capillary Refill : General Appearance: No Apparent Distress, WD/WN, Anxious, Chronically ill, Obese HEENT: PERRL/EOMI, Normal ENT Inspection, Pharynx Normal Neck: Full Range of Motion, Normal Inspection, Non Tender, Supple, Carotid Bruit Respiratory: Chest Non Tender, No Accessory Muscle Use, No Respiratory Distress, Crackles, Decreased Breath Sounds Cardiovascular: Regular Rate, Rhythm, No Gallop, No JVD, No Murmur, Normal Peripheral Pulses Gastrointestinal: Normal Bowel Sounds, No Organomegaly, No Pulsatile Mass, Non Tender, Soft Back: Normal Inspection, No CVA Tenderness, No Vertebral Tenderness Extremity: Normal Capillary Refill, Normal Inspection, Normal Range of Motion, Non Tender, No Calf Tenderness, Pedal Edema Neurologic/Psychiatric: Alert, Oriented x3, No Motor/Sensory Deficits, tobacco drying machine operator II- XII Norm as Tested, Depressed Affect, Motor Weakness (generalized all extremities 3/5) Skin: Normal Color, Warm/Dry Lymphatic: No Adenopathy Results/Procedures Lab Patient resulted labs reviewed. FIM Transfers Therapy Code Descriptions/Definitions Functional [place] Measure: 0=Not Assessed/NA 4=Minimal Assistance 1=Total Assistance 5=Supervision or Setup 2=Maximal Assistance 6=Modified [place] 3=Moderate Assistance 7=Complete IndependenceSCALE: Activities may be completed with or without assistive devices. 4-Chrocwczio-tmrwawe completes the activity by him/herself with no assistance from a helper. 5-Set-up or Clean-up Assistance-helper sets up or cleans up; patient completes activity. [place] assists only prior to or following the activity. 4-Supervision or Touching Assistance-helper provides verbal cues and/or touching/steadying and/or contact guard assistance as patient completes activity. Assistance may be provided throughout the activity or intermittently. 3-Partial/Moderate Assistance-helper does LESS THAN HALF the effort. [place] lifts, holds or supports trunk or limbs, but provides less than half the effort. 2-Substantial/Maximal Assistance-helper does MORE THAN HALF the effort. [place] lifts or holds trunk or limbs and provides more than half the effort. 0-Ofwxrsczq-kszwum does ALL the effort. Patient does none of the effort to complete the activity. Or, the assistance of 2 or more helpers is required for the patient to complete the activity. If activity was not attempted, code reason: 7-Patient Refused. 9-Not Applicable-not attempted and the patient did not perform the activity before the current illness, exacerbation or injury. 10-Not Attempted due to Environmental Limitations-(lack of equipment, weather restraints, etc.). 88-Not Attempted due to Medical Conditions or Safety Concerns. Roll Left to Right (QC): 3 Sit to Lying (QC): 2 Sit to Stand (QC): 2 Chair/Hkv-jx-Jyvqi Xfer(QC): 2 Car Transfer (QC): 88 (unsafe to attempt due to heavy need for assist. ) Gait Training Walk 10 feet (QC): 88 Walk 50 ft with 2 Turns(QC): 88 Walk 150 ft (QC): 88 Walking 10ft/uneven surface-QC: 88 Wheelchair Training Does the Pt Use a Wheelchair?: Yes Wheel 50 ft with 2 turns (QC): 4 Wheel 150 ft (QC): 4 Type of Wheelchair: Manual Stair Training 1 Step (curb) (QC): 88 4 Steps (QC): 88 12 Steps (QC): 88 Balance Picking up an Object (QC): 88 ADL-Treatment Eating (QC): 5 Oral Hygiene (QC): 7 Bathing Location: L Arm, R Arm, L Upper Leg, R Upper Leg, Chest, Abdomen, Perineal Area Shower/Bathe Self (QC): 3 (Mod assist. Pt. is able to bathe upper body, and front yo area at bed level. Requires assistance to bathe rear yo area and bilateral LE.) Upper Body Dressing (QC): 4 Lower Body Dressing (QC): 7 (Pt. does not have shorts clean, and declines putting on any long pants. 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 Obesity DM Neuropathy Anemia O2 dependence Plan: IRF protocol Monitor O2 O2 supplement 12/05/20: O2 maintained IRF protocol Cardiology consultation appreciated Midline replacement 12/06/20: Cardiology consult appreciated Decrease insulin Midline Monitor closely 12/07/20: Monitor closely O2 wean Increase acitivity Maintain Remeron and Melatonin 12/08/20: Monitor closely Check labs in am Monitor tachycardia Remeron and Melatonin 12/09/20: Labs normal Improved strength Weaning O2 Monitor insomnia Increase insulin 12/10/20: Monitor O2 Increase strength Severe myopathy of legs 12/11/20: Difficult to progress Continue therapy May need NHP 12/12/20: Pain control with Oxycodone Monitor bowels Monitor O2 12/13/20: Monitor pain Wean O2 CPAP mask seems to be working better (1) COVID-19 (2) RICHY on CPAP (3) Obesity (4) Diabetes (5) Hypertension (6) Edema (7) Neuropathy (8) Anemia (9) Advanced age DEANNA BOO DO Dec 13, 2020 10:23
[2020-12-13] MEDS: ADVAIR HFA 115/21 MCG INHALER 8 GM IH SCH ×2 (10:49→22:25)
[2020-12-13] MEDS: UMECLIDINIUM BROMIDE (INCRUSE ELLIPTA) 7'S IH SCH (10:50)
--- NOTE | 2020-12-13 11:32 | Occupational Ther Daily Note ---
OT Current Status-Daily Note Subjective [id number] (35): Pt's call light on. Pt alert/ oriented. On commode upon entry. Pt agrees to OT tx. Pt states d/c home next Wednesday, needs to be able to transfer self as d/c'ing home alone. Has electric/ power w/c at home and walker. [id number] (45): Pt seen for 15 min individual tx, then 30 min co-treat with PT. Co-treat rendered at this time due to higher level fx mobility. OT addresses UE placement/ ADLs/ sitting balance, PT addresses LE placement/ strength/ standing balance/ transfers. Pt denies pain, agrees to tx. 2585-2395 (15): Pt agrees to tx. Finishing up with lunch. Denies pain, denies SOB. Mental Status/Objective Patient Orientation: Person, Place, Situation, Normal For Age Attachments: Oxygen (3.5 L) ADL-Treatment Therapy Code Descriptions/Definitions Functional [place] Measure: 0=Not Assessed/NA 4=Minimal Assistance 1=Total Assistance 5=Supervision or Setup 2=Maximal Assistance 6=Modified [place] 3=Moderate Assistance 7=Complete IndependenceSCALE: Activities may be completed with or without assistive devices. 1-Lrewlbaqxv-phgcvek completes the activity by him/herself with no assistance from a helper. 5-Set-up or Clean-up Assistance-helper sets up or cleans up; patient completes activity. [place] assists only prior to or following the activity. 4-Supervision or Touching Assistance-helper provides verbal cues and/or touching/steadying and/or contact guard assistance as patient completes activity. Assistance may be provided throughout the activity or intermittently. 3-Partial/Moderate Assistance-helper does LESS THAN HALF the effort. [place] lifts, holds or supports trunk or limbs, but provides less than half the effort. 2-Substantial/Maximal Assistance-helper does MORE THAN HALF the effort. [place] lifts or holds trunk or limbs and provides more than half the effort. 1-Uwtydykmb-jigqse does ALL the effort. Patient does none of the effort to complete the activity. Or, the assistance of 2 or more helpers is required for the patient to complete the activity. If activity was not attempted, code reason: 7-Patient Refused. 9-Not Applicable-not attempted and the patient did not perform the activity before the current illness, exacerbation or injury. 10-Not Attempted due to Environmental Limitations-(lack of equipment, weather restraints, etc.). 88-Not Attempted due to Medical Conditions or Safety Concerns. Eating (QC): 6 Oral Hygiene (QC): 7 Bathing Location: L Arm, R Arm, L Upper Leg, R Upper Leg, Chest, Abdomen, Perineal Area Shower/Bathe Self (QC): 1 (TD due to need of sit to stand to wash bottom post BM/ sponge bath. ) Upper Body Dressing (QC): 4 (s/u and cues for breathing. ) Lower Body Dressing (QC): 1 (TD due to need of sit to stand to pin puller hips, though completes donning over LEs with SBA (cues for breath) and use of AE) On/Off Footwear: 6 (shoes only) Toileting Hygiene (QC): 1 (TD) Toilet Transfer (QC): 1 (TD, sit to stand lift) Other Treatment [id number] (35): Use of sit to stand (Ax2) from commode. TD for wiping. Pt sits in recliner. Able to complete sponge bath (as outliend), dons pants with use of double bottom driver (02 89% in slight bending position, cues for breath through nose/ breathing cues), sit to stand lift utilized to pull pants over hips (TD). Pt c ompletes UB washing/ dressing, 02 monitored with 02 doffed due to shirt donning with 90%, recovery break needed. Pt rests until further tx. [id number] (45): Pt seen for 15 min individual tx, then 30 min co-treat with PT. Co-treat rendered at this time due to higher level fx mobility. OT addresses UE placement/ ADLs/ sitting balance, PT addresses LE placement/ strength/ standing balance/ transfers. Pt denies pain, agrees to tx. Use of sit to stand lift (Ax2) to reach w/c level. Pt dons shoes with IND. Pt propels self to gym without rest break (02 hooked onto pt throughout this time). Pt completes 3-4 sit to stands at parallel bars with Ax2 (OT monitoring UE placement and posture while PT addresses LE placement/ knees/ progression of standing to walking). Pt stands 1st attempt with lean to R side, max A to straighten knees/ R UE. Pt requires rest. 02 monitored, in 95% range. Pt completes 3 added sit to stands each with increased IND/ success, stance 3x with ability to stand (see PT notes for assist level) with moderate cues for UE placement/ head lifting/ knee straightening. OT assists PT in transfer to bike. Left with PT end of session. [id number]: Pt completes UE strengthening tasks with red theraband, including 10 reps bilaterally of the following exercises with rest breaks in between: bicep curls, shoulder extension, rows (2 sets). Pt then completes modified sit ups in recliner, educated on benefits and precautions due to limited breath. Pt educated to monitor breathing throughout. Pt agrees, all needs met, call light in reach. Education OT Patient Education: Correct positioning, Energy conservation, Exercise program, Home exercise program, Modified ADL techniques, Progress toward Goal/Update tx plan, Purpose of tx/functional activities, Safety issues, Transfer techniques Teaching Recipient: Patient Teaching Methods: Demonstration, Discussion Response to Teaching: Verbalize Understanding, Return Demonstration, Reinforcement Needed OT Short Term Goals Short Term Goals Time Frame: Dec 11, 2020 Eatin Oral hygiene: 88 Toileting hygiene: 2 Shower/bathe self: 3 Upper body dressin Lower body dressin Putting on/taking off footwear: 6 OT Service Coordinator Elderly Facility Goals Service Coordinator Elderly Facility Goals Time Frame: Dec 25, 2020 Eating (QC): 6 Oral Hygiene (QC): 6 Toileting Hygiene (QC): 5 Shower/Bathe Self (QC): 5 Upper Body Dressing (QC): 6 Lower Body Dressing (QC): 4 On/Off Footwear (QC): 6 Additional Goals: 1-Demonstrate ADL Tasks, 2-Verbalize Understanding, 3- ImproveStrength/Erick 1=Demonstrate adherence to instructed precautions during ADL tasks. 2=Patient will verbalize/demonstrate understanding of assistive devices/modifications for ADL. 3=Patient will improve strength/tolerance for activity to enable patient to perform ADL's. OT Education/Plan Problem List/Assessment Assessment: Decreased Activ Tolerance, Decreased UE Strength, Dependent Transfers, Impaired Bed Mobility, Impaired Funct Balance, Impaired I ADL's, Impaired Self-Care Skills, Restricted Funct UE ROM Discharge Recommendations Plan/Recommendations: Continue POC Therapy Discharge Recommendati: 24 Hour Supervision, Post Acute OT Treatment Plan/Plan of Care Treatment,Training & Education: Yes Patient would benefit from OT for education, treatment and training to promote independence in ADL's, mobility, safety and/or upper extremity function for ADL's. Plan of Care: ADL Retraining, Caregiver Training, Concurrent Therapy, Functional Mobility, Group Exercise/Act as Ind, UE Funct Exercise/Act, UE Neuromus Re-Ed/Coord, W/C Management Training Treatment Duration: Dec 25, 2020 Frequency: Modified Program (IRF) Estimated Hrs Per Day: 1 hour per day Agreement: Yes Rehab Potential: Fair Time/GCodes Start Time: 08:00 (0915) Stop Time: 08:35 (1000) Total Time Billed (hr/min): 95 (35+45+15) Billed Treatment Time [id number] (35): Pt's call light on. Pt alert/ oriented. On commode upon entry. Pt agrees to OT tx. Pt states d/c home next Wednesday, needs to be able to transfer self as d/c'ing home alone. Has electric/ power w/c at home and walker. 1, ADL 2 [id number] (45): Pt seen for 15 min individual tx, then 30 min co-treat with PT. Co-treat rendered at this time due to higher level fx mobility. OT addresses UE placement/ ADLs/ sitting balance, PT addresses LE placement/ strength/ standing balance/ transfers. Pt denies pain, agrees to tx. 1, EX 3 [id number]: 1, EX (15) CHAPARRO GOLDEN OTR Dec 13, 2020 11:32
--- NOTE | 2020-12-13 14:02 | Physical Therapy Daily Note ---
PT Daily Note-Current Subjective Pt. up in recliner and states "I just got finished with exercises and here you are again" Pt. afterwards stated "that was just what I needed" Pt. likes the recliner now that he can get himself in more comfortable position with instruction and practice Pain Location: No Pain Reported Mental Status Patient Orientation: Normal For Age Attachments: Oxygen Transfers SCALE: Activities may be completed with or without assistive devices. 2-Yvrsljauye-hhdqxcr completes the activity by him/herself with no assistance from a helper. 5-Set-up or Clean-up Assistance-helper sets up or cleans up; patient completes activity. [place] assists only prior to or following the activity. 4-Supervision or Touching Assistance-helper provides verbal cues and/or touching/steadying and/or contact guard assistance as patient completes activity. Assistance may be provided throughout the activity or intermittently. 3-Partial/Moderate Assistance-helper does LESS THAN HALF the effort. [place] lifts, holds or supports trunk or limbs, but provides less than half the effort. 2-Substantial/Maximal Assistance-helper does MORE THAN HALF the effort. [place] lifts or holds trunk or limbs and provides more than half the effort. 6-Lkwjxaswo-romlgl does ALL the effort. Patient does none of the effort to complete the activity. Or, the assistance of 2 or more helpers is required for the patient to complete the activity. If activity was not attempted, code reason: 7-Patient Refused. 9-Not Applicable-not attempted and the patient did not perform the activity before the current illness, exacerbation or injury. 10-Not Attempted due to Environmental Limitations-(lack of equipment, weather restraints, etc.). 88-Not Attempted due to Medical Conditions or Safety Concerns. rolled left and right in recliner, pushed self up in chair x 3 with instruction for reclining head back and pushing with feet etc. Weight Bearing Full Weight Bearing Full Weight Bearing Exercises Supine Ex: Bridging, Ankle pumps, Quad Set, Rolling, Glut sets, Heel Slides, Scooting, Straight leg raise (assisted), Hip abd/add Supine Reps: 15 Seated Therapy Exercises: Ankle pumps, Long arc quads, Hip flexion Seated Reps: 12 Assessment Current Status: Good Progress PT Short Term Goals Short Term Goals Time Frame: Dec 11, 2020 Roll Left & Right: 4 Sit to lyin Lying to sitting on side of be: 4 Sit to stand: 3 Chair/lsu-xf-fgdur transfer: 3 Walk 10 feet: 3 Walk 50 feet with two turns: 3 PT Quality Control Checker Goals Assisted Goals PT Quality Control Checker Goals Time Frame: Jan 01, 2021 Roll Left & Right (QC): 6 Sit to Lying (QC): 6 Lying-Sitting on Side/Bed(QC): 6 Sit to Stand (QC): 6 Chair/Uyq-td-Bxomx Xfer(QC): 6 Toilet Transfer (QC): 6 Car Transfer (QC): 6 Does the Patient Walk: No and Walking Goal IS indicated Walk 10 feet (QC): 6 Walk 50ft with 2 Turns (QC): 6 Walk 150 ft (QC): 6 Walking 10ft on Uneven Surface: 4 1 Step (curb) (QC): 4 4 Steps (QC): 4 12 Steps (QC): 4 Picking up an Object (QC): 5 Does the Pt use WC or Scooter?: No Wheel 50 feet with 2 turns (QC: 9 Wheel 150 feet: 9 PT Plan Treatment/Plan Treatment Plan: Continue Plan of Care Treatment Plan: Bed Mobility, Education, Functional Activity Erick, Functional Strength, Group Therapy, Gait, Safety, Therapeutic Exercise, Transfers Treatment Duration: Jan 01, 2021 Frequency: At least 5 of 7 days/Wk (IRF) Estimated Hrs Per Day: Other (see notation) Patient and/or Family Agrees t: Yes Safety Risks/Education Patient Education: Issued Written HEP Teaching Recipient: Patient Teaching Methods: Demonstration, Discussion Response to Teaching: Verbalize Understanding, Return Demonstration, Reinforcement Needed Time/GCodes Time In: 1335 Time Out: 1355 Total Billed Treatment Time: 20 Total Billed Treatment 1,EX 20m SUSANNA CONNER MAILROOM COORDINATOR Dec 13, 2020 14:02
[2020-12-13 16:18] VITALS: BP 102/70
[2020-12-13 20:17] VITALS: BP 114/67
[2020-12-13] MEDS: MELATONIN 3 MG TABLET PO SCH (20:19)
[2020-12-13] MEDS: MIRTAZAPINE 15 MG (REMERON) TAB PO SCH (20:19)
[2020-12-14 05:16] VITALS: BP 141/78
[2020-12-14] MEDS: inSUlin ASPART (NovoLOG) 1 UNIT/0.01 ML (CHARGE PER UNIT) SC SCH ×4 (05:26→21:36)
[2020-12-14] MEDS: CATHETER FLUSH 10 ML SYR IV SCH ×3 (05:28→21:38)
--- NOTE | 2020-12-14 05:56 | PM&R Progress Note ---
Subjective HPI/CC On Admission Date Seen by Provider: Dec 14, 2020 Time Seen by Provider: 11:00 Subjective/Events-last exam 12/14/20: Doing well BM+ Dyspnea still continues No pain 12/13/20: Patient more alert today and energized No pain reported Oxycodone helps the foot pain Participating with therapy 12/12/20: Pt doing a lot better Having a lot of pain, takes Oxycodone for his foot and leg pain Bowels are moving Sleeping better Pt very well could require a alf since he lives alone and is just not progressing well 12/11/20: No major issues Pretty much has plateaued and not made much progress with ambulation Epistaxis of the left nostril Nasal sprays will be continued Re-check and check with insurance coverage but he very well may need to be in a alf 12/10/20: Pt doing pretty well Slept on and off last night Remains on 4 liters of O2 Swelling in his feel is pretty minimal Did not use his BiPAP last night and that likely is the cause of not sleeping well 12/09/20: Pt slept pretty well Bowels are moving PLTs are 97, 000 Normal WBC down from 21 when he first arrived Denies any significant issues Trying to get strong enough to walk 12/08/20: Slept well last night Remeron and Melatonin has helped him a lot Sinus tachy last night BM 12/06/20 so laxatives given No other issues 12/07/20: Slept better Yonker provided for phlem HR 60 Appreciate Cardiology 4L/min O2 BM 12/06/20 12/06/20: HR 122 Cardiology consulted Sugar 54 so decreasing insulin BM++ No pain reported No sleeping well so added hypnotics of Melatonin and Remeron 12/05/20: Patient doing well Worn out from fatigue Sugars are ok No pain reported Tachycardic so consulting Dr Carranza Midline was accidently pulled out so need a new one placed Checked meds and labs Review of Systems General: Fatigue Pulmonary: Dyspnea Objective Exam Vital Signs Vital Signs Date Time Temp Pulse Resp B/P (MAP) Pulse Ox O2 Delivery O2 Flow Rate FiO2 12/15/20 05:00 36.4 65 18 125/68 (87) 99 NIV CPAP 4.00 Capillary Refill : General Appearance: No Apparent Distress, WD/WN, Anxious, Chronically ill, Obese HEENT: PERRL/EOMI, Normal ENT Inspection, Pharynx Normal Neck: Full Range of Motion, Normal Inspection, Non Tender, Supple, Carotid Bruit Respiratory: Chest Non Tender, No Accessory Muscle Use, No Respiratory Distress, Crackles, Decreased Breath Sounds Cardiovascular: Regular Rate, Rhythm, No Gallop, No JVD, No Murmur, Normal Peripheral Pulses Gastrointestinal: Normal Bowel Sounds, No Organomegaly, No Pulsatile Mass, Non Tender, Soft Back: Normal Inspection, No CVA Tenderness, No Vertebral Tenderness Extremity: Normal Capillary Refill, Normal Inspection, Normal Range of Motion, Non Tender, No Calf Tenderness, Pedal Edema Neurologic/Psychiatric: Alert, Oriented x3, No Motor/Sensory Deficits, 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 FIM Transfers Therapy Code Descriptions/Definitions Functional [place] Measure: 0=Not Assessed/NA 4=Minimal Assistance 1=Total Assistance 5=Supervision or Setup 2=Maximal Assistance 6=Modified [place] 3=Moderate Assistance 7=Complete IndependenceSCALE: Activities may be completed with or without assistive devices. 9-Ottdaisign-txmkdyi completes the activity by him/herself with no assistance from a helper. 5-Set-up or Clean-up Assistance-helper sets up or cleans up; patient completes activity. [place] assists only prior to or following the activity. 4-Supervision or Touching Assistance-helper provides verbal cues and/or touching/steadying and/or contact guard assistance as patient completes activity. Assistance may be provided throughout the activity or intermittently. 3-Partial/Moderate Assistance-helper does LESS THAN HALF the effort. [place] lifts, holds or supports trunk or limbs, but provides less than half the effort. 2-Substantial/Maximal Assistance-helper does MORE THAN HALF the effort. [place] lifts or holds trunk or limbs and provides more than half the effort. 5-Pegztukvq-lhuoxw does ALL the effort. Patient does none of the effort to complete the activity. Or, the assistance of 2 or more helpers is required for the patient to complete the activity. If activity was not attempted, code reason: 7-Patient Refused. 9-Not Applicable-not attempted and the patient did not perform the activity before the current illness, exacerbation or injury. 10-Not Attempted due to Environmental Limitations-(lack of equipment, weather restraints, etc.). 88-Not Attempted due to Medical Conditions or Safety Concerns. Roll Left to Right (QC): 3 Sit to Lying (QC): 2 Sit to Stand (QC): 2 (x 4 trials at //bars) Chair/Ymv-yn-Fyenb Xfer(QC): 1 Car Transfer (QC): 88 (unsafe to attempt due to heavy need for assist. ) Gait Training Walk 10 feet (QC): 88 Walk 50 ft with 2 Turns(QC): 88 Walk 150 ft (QC): 88 Walking 10ft/uneven surface-QC: 88 Wheelchair Training Does the Pt Use a Wheelchair?: Yes Wheel 50 ft with 2 turns (QC): 5 Wheel 150 ft (QC): 4 Type of Wheelchair: Manual Stair Training 1 Step (curb) (QC): 88 4 Steps (QC): 88 12 Steps (QC): 88 Balance Picking up an Object (QC): 88 ADL-Treatment Eating (QC): 6 Oral Hygiene (QC): 7 Bathing Location: L Arm, R Arm, L Upper Leg, R Upper Leg, Chest, Abdomen, Perineal Area Shower/Bathe Self (QC): 1 (TD due to need of sit to stand to wash bottom post BM/ sponge bath. ) Upper Body Dressing (QC): 4 (s/u and cues for breathing. 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 Obesity DM Neuropathy Anemia O2 dependence Plan: IRF protocol Monitor O2 O2 supplement 12/05/20: O2 maintained IRF protocol Cardiology consultation appreciated Midline replacement 12/06/20: Cardiology consult appreciated Decrease insulin Midline Monitor closely 12/07/20: Monitor closely O2 wean Increase acitivity Maintain Remeron and Melatonin 12/08/20: Monitor closely Check labs in am Monitor tachycardia Remeron and Melatonin 12/09/20: Labs normal Improved strength Weaning O2 Monitor insomnia Increase insulin 12/10/20: Monitor O2 Increase strength Severe myopathy of legs 12/11/20: Difficult to progress Continue therapy May need NHP 12/12/20: Pain control with Oxycodone Monitor bowels Monitor O2 12/13/20: Monitor pain Wean O2 CPAP mask seems to be working better 12/14/20: Improved status Stood up today with help O2 (1) COVID-19 (2) RICHY on CPAP (3) Obesity (4) Diabetes (5) Hypertension (6) Edema (7) Neuropathy (8) Anemia (9) Advanced age DEANNA BOO DO Dec 14, 2020 05:55
[2020-12-14] MEDS: UMECLIDINIUM BROMIDE (INCRUSE ELLIPTA) 7'S IH SCH (08:19)
[2020-12-14] MEDS: ADVAIR HFA 115/21 MCG INHALER 8 GM IH SCH ×2 (08:19→21:47)
[2020-12-14] MEDS: predniSONE 10 MG TAB PO SCH (08:39)
[2020-12-14] MEDS: APIXABAN 5 MG (ELIQUIS) TABLET PO SCH ×2 (08:39→21:34)
[2020-12-14] MEDS: ACETAMINOPHEN 325 MG TABLET PO SCH ×3 (08:39→21:36)
[2020-12-14] MEDS: ASPIRIN 81 MG CHEW (CHILDREN'S ASA) PO SCH (08:39)
[2020-12-14] MEDS: GABAPENTIN 100 MG (NEURONTIN) CAP PO SCH ×3 (08:39→21:35)
[2020-12-14] MEDS: PANTOPRAZOLE 40 MG (PROTONIX) TAB PO SCH (08:39)
[2020-12-14] MEDS: FINASTERIDE (PROSCAR) 5 MG TAB PO SCH (08:39)
[2020-12-14] MEDS: TAMSULOSIN 0.4 MG (FLOMAX) CAP PO SCH (08:39)
[2020-12-14] MEDS: ASCORBIC ACID (VIT C) 500 MG TABLET PO SCH ×2 (08:39→16:49)
[2020-12-14] MEDS: VITAMIN D3 25 MCG (1,000 UNITS) TABLET PO SCH (08:39)
[2020-12-14] MEDS: DOCUSATE SODIUM 100 MG (COLACE) CAP PO SCH ×2 (08:40→21:39)
[2020-12-14] MEDS: meTOprolol TARTRATE 50 MG (LOPRESSOR) TAB PO SCH ×2 (08:40→21:35)
[2020-12-14] MEDS: polyethylene glycoL POWDER 17 GM (MIRALAX) PACK PO SCH ×2 (08:40→21:40)
[2020-12-14] MEDS: SENNA W/DOCUSATE (SENOKOT S) TABLET PO SCH ×2 (08:40→21:40)
[2020-12-14] MEDS: SALIVA STIMULANT MOUTH SPRAY (BIOTENE) 1.5 OZ MM SCH ×4 (08:43→21:38)
[2020-12-14] MEDS: FLUTICASONE NASAL SPRAY (FLONASE) 16 GM BTL NS SCH (08:43)
[2020-12-14] MEDS: SALINE NASAL SPRAY (OCEAN) 45 ML BTL NS SCH ×3 (08:44→21:39)
[2020-12-14 08:45] VITALS: BP 117/71
--- NOTE | 2020-12-14 10:28 | Physical Therapy Daily Note ---
PT Daily Note-Current Subjective Agress to PT. Reports he will do exercises in his chair later. Mental Status Patient Orientation: Person, Place, Time, Situation Transfers SCALE: Activities may be completed with or without assistive devices. 9-Tobvmhbzrn-etgqgkh completes the activity by him/herself with no assistance from a helper. 5-Set-up or Clean-up Assistance-helper sets up or cleans up; patient completes activity. [place] assists only prior to or following the activity. 4-Supervision or Touching Assistance-helper provides verbal cues and/or touching/steadying and/or contact guard assistance as patient completes activity. Assistance may be provided throughout the activity or intermittently. 3-Partial/Moderate Assistance-helper does LESS THAN HALF the effort. [place] l ifts, holds or supports trunk or limbs, but provides less than half the effort. 2-Substantial/Maximal Assistance-helper does MORE THAN HALF the effort. [place] lifts or holds trunk or limbs and provides more than half the effort. 4-Kmtctlfoy-sifvcq does ALL the effort. Patient does none of the effort to complete the activity. Or, the assistance of 2 or more helpers is required for t he patient to complete the activity. If activity was not attempted, code reason: 7-Patient Refused. 9-Not Applicable-not attempted and the patient did not perform the activity before the current illness, exacerbation or injury. 10-Not Attempted due to Environmental Limitations-(lack of equipment, weather restraints, etc.). 88-Not Attempted due to Medical Conditions or Safety Concerns. Lying to Sitting/Side of Bed(Q: 4 (intermittent cues for sequencing. ) Sit to Stand (QC): 1 Chair/Isa-uk-Zwaow Xfer(QC): 1 (sit to stand lift. ) Weight Bearing Full Weight Bearing Full Weight Bearing Exercises Supine Ex: Quad Set, Glut sets, Short Arc Quads, Hip abd/add Supine Reps: 10 Seated Therapy Exercises: Ankle pumps, Long arc quads, Hip flexion Seated Reps: 12 LE ther ex for functional strengthtening; B UE shoulder flex, elbow flex/ext; shoulder ER/IR x 10 each Treatments Transfer to chair and ther ex. Assessment Pt progressing with improved bed mobility. PT Short Term Goals Short Term Goals Time Frame: Dec 11, 2020 Roll Left & Right: 4 Sit to lyin Lying to sitting on side of be: 4 (met) Sit to stand: 3 Chair/jid-km-zqhyx transfer: 3 Walk 10 feet: 3 Walk 50 feet with two turns: 3 PT Assistant Athletic Trainer Goals [facility] Goals PT [facility] Goals Time Frame: Jan 01, 2021 Roll Left & Right (QC): 6 Sit to Lying (QC): 6 Lying-Sitting on Side/Bed(QC): 6 Sit to Stand (QC): 6 Chair/Ozr-gi-Oeswg Xfer(QC): 6 Toilet Transfer (QC): 6 Car Transfer (QC): 6 Does the Patient Walk: No and Walking Goal IS indicated Walk 10 feet (QC): 6 Walk 50ft with 2 Turns (QC): 6 Walk 150 ft (QC): 6 Walking 10ft on Uneven Surface: 4 1 Step (curb) (QC): 4 4 Steps (QC): 4 12 Steps (QC): 4 Picking up an Object (QC): 5 Does the Pt use WC or Scooter?: No Wheel 50 feet with 2 turns (QC: 9 Wheel 150 feet: 9 PT Plan Problem List Problem List: Activity Tolerance, Functional Strength, Safety, Balance, Gait, Transfer, Bed Mobility Treatment/Plan Treatment Plan: Continue Plan of Care Treatment Plan: Bed Mobility, Education, Functional Activity Erick, Functional Strength, Group Therapy, Gait, Safety, Therapeutic Exercise, Transfers Treatment Duration: Jan 01, 2021 Frequency: At least 5 of 7 days/Wk (IRF) Estimated Hrs Per Day: Other (see notation) Patient and/or Family Agrees t: Yes Safety Risks/Education Patient Education: Transfer Techniques Teaching Recipient: Patient Teaching Methods: Discussion Response to Teaching: Return Demonstration, Reinforcement Needed Time/GCodes Time In: 940 Time Out: 955 Total Billed Treatment Time: 15 Total Billed Treatment visit EX 15 BRITNEY PACHECO PT Dec 14, 2020 10:28
[2020-12-14 17:34] VITALS: BP 111/65
[2020-12-14] MEDS: MELATONIN 3 MG TABLET PO SCH (21:34)
[2020-12-14] MEDS: MIRTAZAPINE 15 MG (REMERON) TAB PO SCH (21:36)
[2020-12-15 05:00] VITALS: BP 125/68
[2020-12-15] MEDS: inSUlin ASPART (NovoLOG) 1 UNIT/0.01 ML (CHARGE PER UNIT) SC SCH ×4 (05:27→20:31)
[2020-12-15] MEDS: CATHETER FLUSH 10 ML SYR IV SCH ×3 (05:49→20:31)
[2020-12-15] MEDS: ADVAIR HFA 115/21 MCG INHALER 8 GM IH SCH ×2 (07:39→18:14)
[2020-12-15] MEDS: UMECLIDINIUM BROMIDE (INCRUSE ELLIPTA) 7'S IH SCH (07:40)
[2020-12-15] MEDS: ASCORBIC ACID (VIT C) 500 MG TABLET PO SCH ×2 (08:22→17:02)
[2020-12-15] MEDS: TAMSULOSIN 0.4 MG (FLOMAX) CAP PO SCH (08:22)
[2020-12-15] MEDS: ASPIRIN 81 MG CHEW (CHILDREN'S ASA) PO SCH (08:22)
[2020-12-15] MEDS: PANTOPRAZOLE 40 MG (PROTONIX) TAB PO SCH (08:23)
[2020-12-15] MEDS: APIXABAN 5 MG (ELIQUIS) TABLET PO SCH ×2 (08:23→20:29)
[2020-12-15] MEDS: VITAMIN D3 25 MCG (1,000 UNITS) TABLET PO SCH (08:23)
[2020-12-15] MEDS: predniSONE 10 MG TAB PO SCH (08:23)
[2020-12-15] MEDS: ACETAMINOPHEN 325 MG TABLET PO SCH ×3 (08:23→20:30)
[2020-12-15] MEDS: GABAPENTIN 100 MG (NEURONTIN) CAP PO SCH ×3 (08:23→20:30)
[2020-12-15] MEDS: meTOprolol TARTRATE 50 MG (LOPRESSOR) TAB PO SCH ×2 (08:23→20:29)
[2020-12-15] MEDS: FINASTERIDE (PROSCAR) 5 MG TAB PO SCH (08:23)
[2020-12-15] MEDS: SENNA W/DOCUSATE (SENOKOT S) TABLET PO SCH ×2 (08:24→20:32)
[2020-12-15] MEDS: DOCUSATE SODIUM 100 MG (COLACE) CAP PO SCH ×2 (08:25→20:32)
[2020-12-15] MEDS: polyethylene glycoL POWDER 17 GM (MIRALAX) PACK PO SCH ×2 (08:25→20:32)
[2020-12-15] MEDS: FLUTICASONE NASAL SPRAY (FLONASE) 16 GM BTL NS SCH (08:27)
[2020-12-15] MEDS: SALINE NASAL SPRAY (OCEAN) 45 ML BTL NS SCH ×3 (08:27→20:32)
[2020-12-15] MEDS: SALIVA STIMULANT MOUTH SPRAY (BIOTENE) 1.5 OZ MM SCH ×4 (08:27→20:32)
[2020-12-15 08:28] VITALS: BP 122/66
--- NOTE | 2020-12-15 11:39 | PM&R Progress Note ---
Subjective HPI/CC On Admission Date Seen by Provider: Dec 15, 2020 Time Seen by Provider: 11:45 Subjective/Events-last exam 12/15/20: Overall doing well No issues BM+ No falls 12/14/20: Doing well BM+ Dyspnea still continues No pain 12/13/20: Patient more alert today and energized No pain reported Oxycodone helps the foot pain Participating with therapy 12/12/20: Pt doing a lot better Having a lot of pain, takes Oxycodone for his foot and leg pain Bowels are moving Sleeping better Pt very well could require a care home since he lives alone and is just not progressing well 12/11/20: No major issues Pretty much has plateaued and not made much progress with ambulation Epistaxis of the left nostril Nasal sprays will be continued Re-check and check with insurance coverage but he very well may need to be in a care home 12/10/20: Pt doing pretty well Slept on and off last night Remains on 4 liters of O2 Swelling in his feel is pretty minimal Did not use his BiPAP last night and that likely is the cause of not sleeping well 12/09/20: Pt slept pretty well Bowels are moving PLTs are 97, 000 Normal WBC down from 21 when he first arrived Denies any significant issues Trying to get strong enough to walk 12/08/20: Slept well last night Remeron and Melatonin has helped him a lot Sinus tachy last night BM 12/06/20 so laxatives given No other issues 12/07/20: Slept better Yonker provided for phlem HR 60 Appreciate Cardiology 4L/min O2 BM 12/06/20 12/06/20: HR 122 Cardiology consulted Sugar 54 so decreasing insulin BM++ No pain reported No sleeping well so added hypnotics of Melatonin and Remeron 12/05/20: Patient doing well Worn out from fatigue Sugars are ok No pain reported Tachycardic so consulting Dr Carranza Midline was accidently pulled out so need a new one placed Checked meds and labs Review of Systems General: Fatigue, Malaise Pulmonary: Dyspnea Objective Exam Vital Signs Vital Signs Date Time Temp Pulse Resp B/P (MAP) Pulse Ox O2 Delivery O2 Flow Rate FiO2 12/15/20 18:14 94 Nasal Cannula 4.00 12/15/20 17:24 36.6 89 19 123/70 (87) Capillary Refill : General Appearance: No Apparent Distress, WD/WN, Anxious, Chronically ill, Obese HEENT: PERRL/EOMI, Normal ENT Inspection, Pharynx Normal Neck: Full Range of Motion, Normal Inspection, Non Tender, Supple, Carotid Bruit Respiratory: Chest Non Tender, No Accessory Muscle Use, No Respiratory Distress, Crackles, Decreased Breath Sounds Cardiovascular: Regular Rate, Rhythm, No Gallop, No JVD, No Murmur, Normal Peripheral Pulses Gastrointestinal: Normal Bowel Sounds, No Organomegaly, No Pulsatile Mass, Non Tender, Soft Back: Normal Inspection, No CVA Tenderness, No Vertebral Tenderness Extremity: Normal Capillary Refill, Normal Inspection, Normal Range of Motion, Non Tender, No Calf Tenderness, Pedal Edema Neurologic/Psychiatric: Alert, Oriented x3, No Motor/Sensory Deficits, wiping cloth cutter II- XII Norm as Tested, Depressed Affect, Motor Weakness (generalized all extremities 3/5) Skin: Normal Color, Warm/Dry Lymphatic: No Adenopathy Results/Procedures Lab Patient resulted labs reviewed. FIM Transfers Therapy Code Descriptions/Definitions Functional [place] Measure: 0=Not Assessed/NA 4=Minimal Assistance 1=Total Assistance 5=Supervision or Setup 2=Maximal Assistance 6=Modified [place] 3=Moderate Assistance 7=Complete IndependenceSCALE: Activities may be completed with or without assistive devices. 9-Wozfecsajd-rbitztg completes the activity by him/herself with no assistance from a helper. 5-Set-up or Clean-up Assistance-helper sets up or cleans up; patient completes activity. [place] assists only prior to or following the activity. 4-Supervision or Touching Assistance-helper provides verbal cues and/or touchi ng/steadying and/or contact guard assistance as patient completes activity. Assistance may be provided throughout the activity or intermittently. 3-Partial/Moderate Assistance-helper does LESS THAN HALF the effort. [place] lifts, holds or supports trunk or limbs, but provides less than half the effort. 2-Substantial/Maximal Assistance-helper does MORE THAN HALF the effort. [place] lifts or holds trunk or limbs and provides more than half the effort. 5-Xopzolvzj-voplfo does ALL the effort. Patient does none of the effort to complete the activity. Or, the assistance of 2 or more helpers is required for the patient to complete the activity. If activity was not attempted, code reason: 7-Patient Refused. 9-Not Applicable-not attempted and the patient did not perform the activity before the current illness, exacerbation or injury. 10-Not Attempted due to Environmental Limitations-(lack of equipment, weather restraints, etc.). 88-Not Attempted due to Medical Conditions or Safety Concerns. Roll Left to Right (QC): 3 Sit to Lying (QC): 2 Sit to Stand (QC): 1 Chair/Tnb-qb-Nyzrj Xfer(QC): 1 (sit to stand lift. ) Car Transfer (QC): 88 (unsafe to attempt due to heavy need for assist. ) Gait Training Walk 10 feet (QC): 88 Walk 50 ft with 2 Turns(QC): 88 Walk 150 ft (QC): 88 Walking 10ft/uneven surface-QC: 88 Wheelchair Training Does the Pt Use a Wheelchair?: Yes Wheel 50 ft with 2 turns (QC): 5 Wheel 150 ft (QC): 4 Type of Wheelchair: Manual Stair Training 1 Step (curb) (QC): 88 4 Steps (QC): 88 12 Steps (QC): 88 Balance Picking up an Object (QC): 88 ADL-Treatment Eating (QC): 6 Oral Hygiene (QC): 7 Bathing Location: L Arm, R Arm, L Upper Leg, R Upper Leg, Chest, Abdomen, Perineal Area Shower/Bathe Self (QC): 1 (TD due to need of sit to stand to wash bottom post BM/ sponge bath. ) Upper Body Dressing (QC): 4 (s/u and cues for breathing. 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 Obesity DM Neuropathy Anemia O2 dependence Plan: IRF protocol Monitor O2 O2 supplement 12/05/20: O2 maintained IRF protocol Cardiology consultation appreciated Midline replacement 12/06/20: Cardiology consult appreciated Decrease insulin Midline Monitor closely 12/07/20: Monitor closely O2 wean Increase acitivity Maintain Remeron and Melatonin 12/08/20: Monitor closely Check labs in am Monitor tachycardia Remeron and Melatonin 12/09/20: Labs normal Improved strength Weaning O2 Monitor insomnia Increase insulin 12/10/20: Monitor O2 Increase strength Severe myopathy of legs 12/11/20: Difficult to progress Continue therapy May need NHP 12/12/20: Pain control with Oxycodone Monitor bowels Monitor O2 12/13/20: Monitor pain Wean O2 CPAP mask seems to be working better 12/14/20: Improved status Stood up today with help O2 12/15/20: Wean O2 Monitor ambulation CPAP at night (1) COVID-19 (2) RICHY on CPAP (3) Obesity (4) Diabetes (5) Hypertension (6) Edema (7) Neuropathy (8) Anemia (9) Advanced age DEANNA BOO DO Dec 15, 2020 11:39
--- NOTE | 2020-12-15 11:39 | Progress Note - Hospitalist ---
Subjective HPI/CC On Admission Date Seen by Provider: Dec 15, 2020 Objective Exam Vital Signs Vital Signs Date Time Temp Pulse Resp B/P (MAP) Pulse Ox O2 Delivery O2 Flow Rate FiO2 12/15/20 09:48 Nasal Cannula 4.00 12/15/20 08:28 97 18 122/66 (84) 100 12/15/20 05:00 36.4 Capillary Refill : Results/Procedures Lab Patient resulted labs reviewed. 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 Obesity DM Neuropathy Anemia O2 dependence Plan: IRF protocol Monitor O2 O2 supplement 12/05/20: O2 maintained IRF protocol Cardiology consultation appreciated Midline replacement 12/06/20: Cardiology consult appreciated Decrease insulin Midline Monitor closely 12/07/20: Monitor closely O2 wean Increase acitivity Maintain Remeron and Melatonin 12/08/20: Monitor closely Check labs in am Monitor tachycardia Remeron and Melatonin 12/09/20: Labs normal Improved strength Weaning O2 Monitor insomnia Increase insulin 12/10/20: Monitor O2 Increase strength Severe myopathy of legs 12/11/20: Difficult to progress Continue therapy May need NHP 12/12/20: Pain control with Oxycodone Monitor bowels Monitor O2 12/13/20: Monitor pain Wean O2 CPAP mask seems to be working better 12/14/20: Improved status Stood up today with help O2 Diagnosis/Problems Diagnosis/Problems (1) COVID-19 (2) RICHY on CPAP (3) Obesity (4) Diabetes (5) Hypertension (6) Edema (7) Neuropathy (8) Anemia (9) Advanced age DEANNA BOO DO Dec 15, 2020 11:39
[2020-12-15 17:24] VITALS: BP 123/70
--- NOTE | 2020-12-15 18:35 | Progress Note - Cardiology ---
Cardiology SOAP Progress Note Subjective: No cp or palp or syncope or shortness of breath or palp or syncope No swelling No n/v/d Gen malaise present Objective: I&O/Vital Signs 12/15/20 12/15/20 12/15/20 12/15/20 07:40 08:28 09:48 17:24 Temp 36.6 Pulse 97 89 Resp 18 19 B/P (MAP) 122/66 (84) 123/70 (87) Pulse Ox 89 100 97 O2 Delivery Nasal Cannula Nasal Cannula Nasal Cannula NIV CPAP O2 Flow Rate 3.00 4.00 4.00 4.00 12/15/20 18:14 Pulse Ox 94 O2 Delivery Nasal Cannula O2 Flow Rate 4.00 12/15/20 00:00 Intake Total 655 ml Output Total 950 ml Balance -295 ml Constitutional: AAO x 3 Respiratory: chest is bilaterally symmetric, other (fair to good, bilateral air entry) Cardiovascular: irregularly irregular, S1 and S2, systolic murmur (soft YANET at card base) Gastrointestional: soft, audible bowel sounds Extremities: no lower extremity edema bilateral Neurologic/Psychiatric: no motor/sensory deficits, oriented x 3, other (moves all limbs equally) Results/Procedures: Labs Laboratory Tests 12/14/20 21:15: Glucometer 205H 12/15/20 05:24: Glucometer 130H 12/15/20 11:38: Glucometer 226H 12/15/20 15:08: Glucometer 305H A/P: Assessment: Atrial fibrillation with controlled ventricular rate Critical illness myopathy, COVID-19 RICHY, treated with CPAP, managed by Dr Dawkins Plan: * Continue bb for rate control * Continue apixaban for stroke prophylaxis * Outpt f/u recommended post discharge KENDRA LINDSAY MD FACP [facility] Dec 15, 2020 18:35
[2020-12-15] MEDS: MIRTAZAPINE 15 MG (REMERON) TAB PO SCH (20:30)
[2020-12-15] MEDS: MELATONIN 3 MG TABLET PO SCH (20:31)
[2020-12-16] MEDS: CATHETER FLUSH 10 ML SYR IV SCH ×3 (05:03→22:02)
[2020-12-16 05:09] VITALS: BP 143/72
[2020-12-16 05:15] LABS: BASOPHILS % (AUTO) 0 % (0-10); EOSINOPHILS % (AUTO) 0 % (0-10); HEMATOCRIT 28 % (40-54); HEMOGLOBIN 8.9 g/dL (13.3-17.7); LYMPHOCYTES # (AUTO) 0.8 10^3/uL (1.0-4.0); LYMPHOCYTES % (AUTO) 10 % (12-44); MEAN CORPUSCULAR HEMOGLOBIN 29 pg (25-34); MEAN CORPUSCULAR HGB CONC 32 g/dL (32-36); MEAN CORPUSCULAR VOLUME 92 fL (80-99); MEAN PLATELET VOLUME 9.1 fL (9.0-12.2); MONOCYTES # (AUTO) 0.7 10^3/uL (0.0-1.0); MONOCYTES % (AUTO) 9 % (0-12); NEUTROPHILS # (AUTO) 5.7 10^3/uL (1.8-7.8); NEUTROPHILS % (AUTO) 76 % (42-75); PLATELET COUNT 126 10^3/uL (130-400); WHITE BLOOD COUNT 7.5 10^3/uL (4.3-11.0)
[2020-12-16 05:34] LABS: CHLORIDE 104 MMOL/L (98-107); POTASSIUM 3.5 MMOL/L (3.6-5.0); SODIUM 141 MMOL/L (135-145)
[2020-12-16 05:36] LABS: CALCIUM 8.6 MG/DL (8.5-10.1)
[2020-12-16 05:37] LABS: GLUCOSE 147 MG/DL (70-105); TOTAL PROTEIN 5.2 GM/DL (6.4-8.2)
[2020-12-16 05:38] LABS: CARBON DIOXIDE 27 MMOL/L (21-32)
[2020-12-16 05:39] LABS: BILIRUBIN,TOTAL 0.4 MG/DL (0.1-1.0)
[2020-12-16 05:40] LABS: ALKALINE PHOSPHATASE 64 U/L (40-136); GFR ESTIMATED > 60
[2020-12-16 05:42] LABS: BUN/CREATININE RATIO 24
[2020-12-16 05:43] LABS: ALANINE AMINOTRANSFERASE 44 U/L (0-55)
[2020-12-16] MEDS: inSUlin ASPART (NovoLOG) 1 UNIT/0.01 ML (CHARGE PER UNIT) SC SCH ×4 (05:43→20:53)
[2020-12-16] MEDS: SENNA W/DOCUSATE (SENOKOT S) TABLET PO SCH ×2 (07:34→20:53)
[2020-12-16] MEDS: ASPIRIN 81 MG CHEW (CHILDREN'S ASA) PO SCH (07:34)
[2020-12-16] MEDS: polyethylene glycoL POWDER 17 GM (MIRALAX) PACK PO SCH ×2 (07:34→20:54)
[2020-12-16] MEDS: predniSONE 10 MG TAB PO SCH (07:34)
[2020-12-16] MEDS: VITAMIN D3 25 MCG (1,000 UNITS) TABLET PO SCH (07:34)
[2020-12-16] MEDS: GABAPENTIN 100 MG (NEURONTIN) CAP PO SCH ×3 (07:35→20:44)
[2020-12-16] MEDS: ASCORBIC ACID (VIT C) 500 MG TABLET PO SCH ×2 (07:35→17:18)
[2020-12-16] MEDS: TAMSULOSIN 0.4 MG (FLOMAX) CAP PO SCH (07:35)
[2020-12-16] MEDS: PANTOPRAZOLE 40 MG (PROTONIX) TAB PO SCH (07:36)
[2020-12-16] MEDS: APIXABAN 5 MG (ELIQUIS) TABLET PO SCH ×2 (07:36→20:43)
[2020-12-16] MEDS: ACETAMINOPHEN 325 MG TABLET PO SCH ×3 (07:36→20:46)
[2020-12-16] MEDS: FINASTERIDE (PROSCAR) 5 MG TAB PO SCH (07:36)
[2020-12-16] MEDS: meTOprolol TARTRATE 50 MG (LOPRESSOR) TAB PO SCH ×2 (07:36→20:44)
[2020-12-16] MEDS: DOCUSATE SODIUM 100 MG (COLACE) CAP PO SCH ×2 (07:37→20:54)
[2020-12-16] MEDS: FLUTICASONE NASAL SPRAY (FLONASE) 16 GM BTL NS SCH (07:37)
[2020-12-16] MEDS: SALIVA STIMULANT MOUTH SPRAY (BIOTENE) 1.5 OZ MM SCH ×4 (07:37→20:48)
[2020-12-16] MEDS: SALINE NASAL SPRAY (OCEAN) 45 ML BTL NS SCH ×3 (07:38→20:47)
--- NOTE | 2020-12-16 08:24 | Cardiology Progress Note ---
Subjective Date Seen by Provider: Dec 16, 2020 Time Seen by Provider: 08:22 Subjective/Events-last exam Patient is sitting up in chair, denies any chest pain or increased dyspnea. Objective-Cardiology Exam Last Set of Vital Signs Vital Signs 12/16/20 12/16/20 12/16/20 05:09 10:13 10:16 Temp 36.3 Pulse 74 Resp 18 B/P (MAP) 143/72 (95) Pulse Ox 93 O2 Delivery Nasal Cannula O2 Flow Rate 4.00 Capillary Refill : I&O Intake and Output 12/16/20 00:00 Intake Total 1400 ml Output Total 1850 ml Balance -450 ml Intake Oral 1400 ml Output Urine Total 1850 ml # Voids 6 # Bowel Movements 1 General: Alert, Oriented X3, Cooperative HEENT: Atraumatic, PERRLA Neck: Supple, No JVD, No Thyromegaly Lungs: Clear to Auscultation, Normal Air Movement Heart: Normal S1, Normal S2, No Murmurs, Other (irregularly irregular) Abdomen: Normal Bowel Sounds, Soft, No Tenderness, No Hepatosplenomegaly, No Masses Skin: No Rashes, No Significant Lesion Neuro: Cranial Nerves 3-12 NL Psych/Mental Status: Mental Status NL, Mood NL Results Lab Laboratory Tests 12/16/20 05:00 A/P-Cardiology Admission Diagnosis Afib HTN HLP DM Assessment/Plan Atrial fibrillation with controlled ventricular rate, maintained on Eliquis, continue to monitor. HTN, controlled, continue on current medications. HLP, maintained on statin, monitored as outpatient DM, management per Dr. Dawkins Critical illness myopathy, COVID-19, continue PT/OT RICHY, treated with CPAP, managed by Dr Dawkins Patient was seen and evaluated with Rhona, examination performed, management plan was discussed, agree with the current scribed note, I made few changes to the note using Italic font Patient was seen and evaluated, feeling well. No new complaint Heart rate is controlled, continue on oral anticoagulation Continue to monitor blood pressure and lipids RHONA MARTINEZ Dec 16, 2020 8:24 am JOSE MARIA QUEZADA MD Dec 16, 2020 5:13 pm
--- NOTE | 2020-12-16 08:35 | PM&R Progress Note ---
Subjective HPI/CC On Admission Date Seen by Provider: Dec 16, 2020 Time Seen by Provider: 08:30 Subjective/Events-last exam 12/16/20: Pt doing pretty well Bowels moved today Left midline is functioning Blood sugar 147 Stage 2 decubitus ulcer on the buttock Working really hard to stand 12/15/20: Overall doing well No issues BM+ No falls 12/14/20: Doing well BM+ Dyspnea still continues No pain 12/13/20: Patient more alert today and energized No pain reported Oxycodone helps the foot pain Participating with therapy 12/12/20: Pt doing a lot better Having a lot of pain, takes Oxycodone for his foot and leg pain Bowels are moving Sleeping better Pt very well could require a fpc since he lives alone and is just not progressing well 12/11/20: No major issues Pretty much has plateaued and not made much progress with ambulation Epistaxis of the left nostril Nasal sprays will be continued Re-check and check with insurance coverage but he very well may need to be in a fpc 12/10/20: Pt doing pretty well Slept on and off last night Remains on 4 liters of O2 Swelling in his feel is pretty minimal Did not use his BiPAP last night and that likely is the cause of not sleeping well 12/09/20: Pt slept pretty well Bowels are moving PLTs are 97, 000 Normal WBC down from 21 when he first arrived Denies any significant issues Trying to get strong enough to walk 12/08/20: Slept well last night Remeron and Melatonin has helped him a lot Sinus tachy last night BM 12/06/20 so laxatives given No other issues 12/07/20: Slept better Yonker provided for phlem HR 60 Appreciate Cardiology 4L/min O2 BM 12/06/20 12/06/20: HR 122 Cardiology consulted Sugar 54 so decreasing insulin BM++ No pain reported No sleeping well so added hypnotics of Melatonin and Remeron 12/05/20: Patient doing well Worn out from fatigue Sugars are ok No pain reported Tachycardic so consulting Dr Carranza Midline was accidently pulled out so need a new one placed Checked meds and labs Review of Systems General: Fatigue, Malaise Neurological: Weakness Objective Exam Vital Signs Vital Signs Date Time Temp Pulse Resp B/P (MAP) Pulse Ox O2 Delivery O2 Flow Rate FiO2 12/16/20 18:00 36.8 102 20 122/86 (98) 95 Nasal Cannula 4.00 Capillary Refill : General Appearance: No Apparent Distress, WD/WN, Anxious, Chronically ill, Obese HEENT: PERRL/EOMI, Normal ENT Inspection, Pharynx Normal Neck: Full Range of Motion, Normal Inspection, Non Tender, Supple, Carotid Bruit Respiratory: Chest Non Tender, No Accessory Muscle Use, No Respiratory Distress, Crackles, Decreased Breath Sounds Cardiovascular: Regular Rate, Rhythm, No Gallop, No JVD, No Murmur, Normal Peripheral Pulses Gastrointestinal: Normal Bowel Sounds, No Organomegaly, No Pulsatile Mass, Non Tender, Soft Back: Normal Inspection, No CVA Tenderness, No Vertebral Tenderness Extremity: Normal Capillary Refill, Normal Inspection, Normal Range of Motion, Non Tender, No Calf Tenderness, Pedal Edema Neurologic/Psychiatric: Alert, Oriented x3, No Motor/Sensory Deficits, php lamp developer II- XII Norm as Tested, Depressed Affect, Motor Weakness (generalized all extremities 3/5) Skin: Normal Color, Warm/Dry Lymphatic: No Adenopathy Results/Procedures Lab Laboratory Tests 12/16/20 05:00 Patient resulted labs reviewed. FIM Transfers Therapy Code Descriptions/Definitions Functional [place] Measure: 0=Not Assessed/NA 4=Minimal Assistance 1=Total Assistance 5=Supervision or Setup 2=Maximal Assistance 6=Modified [place] 3=Moderate Assistance 7=Complete IndependenceSCALE: Activities may be completed with or without assistive devices. 7-Wagnjzfjxa-xxdpduo completes the activity by him/herself with no assistance from a helper. 5-Set-up or Clean-up Assistance-helper sets up or cleans up; patient completes activity. [place] assists only prior to or following the activity. 4-Supervision or Touching Assistance-helper provides verbal cues and/or touching/steadying and/or contact guard assistance as patient completes activ ity. Assistance may be provided throughout the activity or intermittently. 3-Partial/Moderate Assistance-helper does LESS THAN HALF the effort. [place] lifts, holds or supports trunk or limbs, but provides less than half the effort. 2-Substantial/Maximal Assistance-helper does MORE THAN HALF the effort. [place] lifts or holds trunk or limbs and provides more than half the effort. 1-Jtyoiefze-sygpnn does ALL the effort. Patient does none of the effort to complete the activity. Or, the assistance of 2 or more helpers is required for the patient to complete the activity. If activity was not attempted, code reason: 7-Patient Refused. 9-Not Applicable-not attempted and the patient did not perform the activity before the current illness, exacerbation or injury. 10-Not Attempted due to Environmental Limitations-(lack of equipment, weather restraints, etc.). 88-Not Attempted due to Medical Conditions or Safety Concerns. Roll Left to Right (QC): 3 Sit to Lying (QC): 2 Sit to Stand (QC): 1 Chair/Ier-zd-[place]otf Xfer(QC): 1 (sit to stand lift. ) Car Transfer (QC): 88 (unsafe to attempt due to heavy need for assist. ) Gait Training Walk 10 feet (QC): 88 Walk 50 ft with 2 Turns(QC): 88 Walk 150 ft (QC): 88 Walking 10ft/uneven surface-QC: 88 Wheelchair Training Does the Pt Use a Wheelchair?: Yes Wheel 50 ft with 2 turns (QC): 5 Wheel 150 ft (QC): 4 Type of Wheelchair: Manual Stair Training 1 Step (curb) (QC): 88 4 Steps (QC): 88 12 Steps (QC): 88 Balance Picking up an Object (QC): 88 ADL-Treatment Eating (QC): 6 Oral Hygiene (QC): 7 Bathing Location: L Arm, R Arm, L Upper Leg, R Upper Leg, Chest, Abdomen, Perineal Area Shower/Bathe Self (QC): 1 (TD due to need of sit to stand to wash bottom post BM/ sponge bath. ) Upper Body Dressing (QC): 4 (s/u and cues for breathing. 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 Obesity DM Neuropathy Anemia O2 dependence Plan: IRF protocol Monitor O2 O2 supplement 12/05/20: O2 maintained IRF protocol Cardiology consultation appreciated Midline replacement 12/06/20: Cardiology consult appreciated Decrease insulin Midline Monitor closely 12/07/20: Monitor closely O2 wean Increase acitivity Maintain Remeron and Melatonin 12/08/20: Monitor closely Check labs in am Monitor tachycardia Remeron and Melatonin 12/09/20: Labs normal Improved strength Weaning O2 Monitor insomnia Increase insulin 12/10/20: Monitor O2 Increase strength Severe myopathy of legs 12/11/20: Difficult to progress Continue therapy May need NHP 12/12/20: Pain control with Oxycodone Monitor bowels Monitor O2 12/13/20: Monitor pain Wean O2 CPAP mask seems to be working better 12/14/20: Improved status Stood up today with help O2 12/15/20: Wean O2 Monitor ambulation CPAP at night 12/16/20: Monitor progress Decubitus ulcer management Monitor BP (1) COVID-19 (2) RICHY on CPAP (3) Obesity (4) Diabetes (5) Hypertension (6) Edema (7) Neuropathy (8) Anemia (9) Advanced age DEANNA BOO DO Dec 16, 2020 08:35
[2020-12-16] MEDS: ADVAIR HFA 115/21 MCG INHALER 8 GM IH SCH ×2 (10:12→20:47)
[2020-12-16] MEDS: UMECLIDINIUM BROMIDE (INCRUSE ELLIPTA) 7'S IH SCH (10:13)
--- NOTE | 2020-12-16 10:59 | Physical Therapy Daily Note ---
PT Daily Note-Current Subjective Patient in restroom with OT pre tx, agrees to PT, voices no complaints of pain, will be co-treating with OT due to poor patient mobility, strength, endurance, O2 decrease with activity, the need to coordinate UE and LE with activity, safety and reduce risk of falls. Appearance Patient in recliner post tx with nurse call, phone, tray, all needs met. Mental Status Patient Orientation: Person, Place, Situation Attachments: Oxygen Transfers SCALE: Activities may be completed with or without assistive devices. 4-Upclexdbbs-zbrkapk completes the activity by him/herself with no assistance f rom a helper. 5-Set-up or Clean-up Assistance-helper sets up or cleans up; patient completes activity. [place] assists only prior to or following the activity. 4-Supervision or Touching Assistance-helper provides verbal cues and/or touching/steadying and/or contact guard assistance as patient completes activity. Assistance may be provided throughout the activity or intermittently. 3-Partial/Moderate Assistance-helper does LESS THAN HALF the effort. [place] lifts, holds or supports trunk or limbs, but provides less than half the effort. 2-Substantial/Maximal Assistance-helper does MORE THAN HALF the effort. [place] lifts or holds trunk or limbs and provides more than half the effort. 0-Uowauzmza-zcvyjb does ALL the effort. Patient does none of the effort to complete the activity. Or, the assistance of 2 or more helpers is required for the patient to complete the activity. If activity was not attempted, code reason: 7-Patient Refused. 9-Not Applicable-not attempted and the patient did not perform the activity before the current illness, exacerbation or injury. 10-Not Attempted due to Environmental Limitations-(lack of equipment, weather restraints, etc.). 88-Not Attempted due to Medical Conditions or Safety Concerns. Sit to Stand (QC): 2 Chair/Srb-wh-[place] Xfer(QC): 2 Patient stood in the parallel bars x4 with max assist, he was able to stand straighter and lock out knees, still slumps forward though. Patient performed a stand pivot transfer at the end of tx going from WC to recliner with max assist. Weight Bearing Full Weight Bearing Full Weight Bearing Wheelchair Training Does the Pt Use a Wheelchair?: Yes Wheel 50 ft with 2 turns (QC): 4 Type of Wheelchair: Manual 120'x2 SBA Treatments PT performed transfers, WC mobility, standing, OT performed UE positioning and safety during activity and during standing Assessment Current Status: Fair Progress slowly improving strength PT Short Term Goals Short Term Goals Time Frame: Dec 11, 2020 Roll Left & Right: 4 Sit to lyin Lying to sitting on side of be: 4 (met) Sit to stand: 3 Chair/grt-tk-rtlzx transfer: 3 Walk 10 feet: 3 Walk 50 feet with two turns: 3 PT Mcc Goals Mcc Goals PT Mcc Goals Time Frame: Jan 01, 2021 Roll Left & Right (QC): 6 Sit to Lying (QC): 6 Lying-Sitting on Side/Bed(QC): 6 Sit to Stand (QC): 6 Chair/Vqn-ab-Yhiwk Xfer(QC): 6 Toilet Transfer (QC): 6 Car Transfer (QC): 6 Does the Patient Walk: No and Walking Goal IS indicated Walk 10 feet (QC): 6 Walk 50ft with 2 Turns (QC): 6 Walk 150 ft (QC): 6 Walking 10ft on Uneven Surface: 4 1 Step (curb) (QC): 4 4 Steps (QC): 4 12 Steps (QC): 4 Picking up an Object (QC): 5 Does the Pt use WC or Scooter?: No Wheel 50 feet with 2 turns (QC: 9 Wheel 150 feet: 9 PT Plan Problem List Problem List: Activity Tolerance, Functional Strength, Safety, Balance, Gait, Transfer, Bed Mobility, ROM Treatment/Plan Treatment Plan: Continue Plan of Care Treatment Plan: Bed Mobility, Education, Functional Activity Erick, Functional Strength, Group Therapy, Gait, Safety, Therapeutic Exercise, Transfers Treatment Duration: Jan 01, 2021 Frequency: At least 5 of 7 days/Wk (IRF) Estimated Hrs Per Day: Other (see notation) Patient and/or Family Agrees t: Yes Safety Risks/Education Patient Education: Transfer Techniques, Correct Positioning, W/C Management, Safety Issues Teaching Recipient: Patient Teaching Methods: Demonstration, Discussion Response to Teaching: Reinforcement Needed Time/GCodes Time In: 1000 Time Out: 1100 Total Billed Treatment Time: 60 Total Billed Treatment 1 visit FA 60' co-treated with OT for 45 min from [id number] JENSEN AMBRIZ PT Dec 16, 2020 10:58
--- NOTE | 2020-12-16 11:24 | Occupational Ther Daily Note ---
OT Current Status-Daily Note Subjective No pain reported. Appearance Pt. up in chair in room. Agrees to work with therapy. Mental Status/Objective Patient Orientation: Person, Place Attachments: IV, Oxygen ADL-Treatment Therapy Code Descriptions/Definitions Functional [place] Measure: 0=Not Assessed/NA 4=Minimal Assistance 1=Total Assistance 5=Supervision or Setup 2=Maximal Assistance 6=Modified [place] 3=Moderate Assistance 7=Complete IndependenceSCALE: Activities may be completed with or without assistive devices. 3-Pejhbevonj-kycragu completes the activity by him/herself with no assistance from a helper. 5-Set-up or Clean-up Assistance-helper sets up or cleans up; patient completes activity. [place] assists only prior to or following the activity. 4-Supervision or Touching Assistance-helper provides verbal cues and/or touching/steadying and/or contact guard assistance as patient completes activity . Assistance may be provided throughout the activity or intermittently. 3-Partial/Moderate Assistance-helper does LESS THAN HALF the effort. [place] lifts, holds or supports trunk or limbs, but provides less than half the effort. 2-Substantial/Maximal Assistance-helper does MORE THAN HALF the effort. [place] lifts or holds trunk or limbs and provides more than half the effort. 6-Ailztvsmp-fxplpy does ALL the effort. Patient does none of the effort to complete the activity. Or, the assistance of 2 or more helpers is required for the patient to complete the activity. If activity was not attempted, code reason: 7-Patient Refused. 9-Not Applicable-not attempted and the patient did not perform the activity before the current illness, exacerbation or injury. 10-Not Attempted due to Environmental Limitations-(lack of equipment, weather restraints, etc.). 88-Not Attempted due to Medical Conditions or Safety Concerns. Shower/Bathe Self (QC): 3 (Min assist seated on shower chair. Pt. encouraged in new technique to cleanse yo area. Uses LH sponge for LE.) Upper Body Dressing (QC): 4 (SBA) Lower Body Dressing (QC): 1 (Pt. requires assistance to thread bilateral LE into shorts, and feet into shoes. OT uses sit-stand lift to don shorts over hips.) On/Off Footwear: 2 Other Treatment Pt. seen for shower with OT first, and then with PT for co-treatment due to skilled need of two therapists. Pt. has poor mobility, strength, and endurance to complete transfers without using lift. OT worked on hand placement at parallel bars, as well as facilitating glutes from behind, to get pt. into upright posture in stance. Pt sat in front of pt. and worked on sit-stand, knee stability, and bringing hips forward while in stance. Pt. stood x 4 at parallel bars, with max x 2 each time. Pt. able to stand 1-2 minutes each time. Pt. on 4 L 02. Pt. begins to breathe fast and shallow with each activity. Pt. encouraged to slow his breathing, breathing in through nose and out through mouth. Pt. has great difficulty doing this. All needs met up with PT in gym after OT session. Education OT Patient Education: Correct positioning, Modified ADL techniques, Progress toward Goal/Update tx plan, Purpose of tx/functional activities, Reviewed precautions, Rehab process, Transfer techniques Teaching Recipient: Patient Teaching Methods: Demonstration, Discussion Response to Teaching: Verbalize Understanding, Return Demonstration OT Short Term Goals Short Term Goals Time Frame: Dec 11, 2020 Eatin Oral hygiene: 88 Toileting hygiene: 2 Shower/bathe self: 3 Upper body dressin Lower body dressin Putting on/taking off footwear: 6 OT Brewery Representative Goals Chcf Goals Time Frame: Dec 25, 2020 Eating (QC): 6 Oral Hygiene (QC): 6 Toileting Hygiene (QC): 5 Shower/Bathe Self (QC): 5 Upper Body Dressing (QC): 6 Lower Body Dressing (QC): 4 On/Off Footwear (QC): 6 Additional Goals: 1-Demonstrate ADL Tasks, 2-Verbalize Understanding, 3- ImproveStrength/Erick 1=Demonstrate adherence to instructed precautions during ADL tasks. 2=Patient will verbalize/demonstrate understanding of assistive devices/modifications for ADL. 3=Patient will improve strength/tolerance for activity to enable patient to perform ADL's. OT Education/Plan Problem List/Assessment Assessment: Decreased Activ Tolerance, Decreased UE Strength, Dependent Transfers, Impaired Bed Mobility, Impaired Funct Balance, Impaired I ADL's, Impaired Self-Care Skills, Restricted Funct UE ROM Discharge Recommendations Plan/Recommendations: Continue POC Therapy Discharge Recommendati: Post Acute OT Treatment Plan/Plan of Care Treatment,Training & Education: Yes Patient would benefit from OT for education, treatment and training to promote independence in ADL's, mobility, safety and/or upper extremity function for ADL's. Plan of Care: ADL Retraining, Caregiver Training, Concurrent Therapy, Functional Mobility, Group Exercise/Act as Ind, UE Funct Exercise/Act, UE Neuromus Re-Ed/Coord, W/C Management Training Treatment Duration: Dec 25, 2020 Frequency: Modified Program (IRF) Estimated Hrs Per Day: 1 hour per day Agreement: Yes Rehab Potential: Fair Time/GCodes Start Time: 09:30 Stop Time: 10:15 Total Time Billed (hr/min): 75 Billed Treatment Time 1, ADL x 30minutes, FA x 45minutes CAMILA SINCLAIR OT Dec 16, 2020 11:24
--- NOTE | 2020-12-16 13:27 | Physical Therapy Daily Note ---
PT Daily Note-Current Subjective Patient in recliner pre tx, agrees to PT, has no complaints of pain. Appearance Patient in recliner post tx with nurse call, nurse in room to give him pain meds. Mental Status Patient Orientation: Person, Place, Situation Attachments: Oxygen Transfers SCALE: Activities may be completed with or without assistive devices. 3-Mcxvzwcsjb-wpdomar completes the activity by him/herself with no assistance from a helper. 5-Set-up or Clean-up Assistance-helper sets up or cleans up; patient completes activity. [place] assists only prior to or following the activity. 4-Supervision or Touching Assistance-helper provides verbal cues and/or touching/steadying and/or contact guard assistance as patient completes activity . Assistance may be provided throughout the activity or intermittently. 3-Partial/Moderate Assistance-helper does LESS THAN HALF the effort. [place] lifts, holds or supports trunk or limbs, but provides less than half the effort. 2-Substantial/Maximal Assistance-helper does MORE THAN HALF the effort. [place] lifts or holds trunk or limbs and provides more than half the effort. 5-Wzqftsfqp-muypge does ALL the effort. Patient does none of the effort to complete the activity. Or, the assistance of 2 or more helpers is required for the patient to complete the activity. If activity was not attempted, code reason: 7-Patient Refused. 9-Not Applicable-not attempted and the patient did not perform the activity before the current illness, exacerbation or injury. 10-Not Attempted due to Environmental Limitations-(lack of equipment, weather restraints, etc.). 88-Not Attempted due to Medical Conditions or Safety Concerns. Chair/Uzn-uz-Oodaj Xfer(QC): 2 Patient stand pivot to WC from recliner with max assist, propelled WC 100' with SBA to therapy gym, performed 3 sets of 10 of manually resisted leg press, propel back to room 100' SBA, stand pivot transfer with max assist back to recliner. Weight Bearing Full Weight Bearing Full Weight Bearing Treatments LE exercise, WC mobility, transfers Assessment Current Status: Fair Progress slightly improved stand pivot transfer PT Short Term Goals Short Term Goals Time Frame: Dec 11, 2020 Roll Left & Right: 4 Sit to lyin Lying to sitting on side of be: 4 (met) Sit to stand: 3 Chair/bdd-pp-nyltx transfer: 3 Walk 10 feet: 3 Walk 50 feet with two turns: 3 PT Marker Machine Attendant Goals Marker Machine Attendant Goals PT Correction Goals Time Frame: Jan 01, 2021 Roll Left & Right (QC): 6 Sit to Lying (QC): 6 Lying-Sitting on Side/Bed(QC): 6 Sit to Stand (QC): 6 Chair/Sjj-mk-Lnyfw Xfer(QC): 6 Toilet Transfer (QC): 6 Car Transfer (QC): 6 Does the Patient Walk: No and Walking Goal IS indicated Walk 10 feet (QC): 6 Walk 50ft with 2 Turns (QC): 6 Walk 150 ft (QC): 6 Walking 10ft on Uneven Surface: 4 1 Step (curb) (QC): 4 4 Steps (QC): 4 12 Steps (QC): 4 Picking up an Object (QC): 5 Does the Pt use WC or Scooter?: No Wheel 50 feet with 2 turns (QC: 9 Wheel 150 feet: 9 PT Plan Problem List Problem List: Activity Tolerance, Functional Strength, Safety, Balance, Gait, Transfer, Bed Mobility, ROM Treatment/Plan Treatment Plan: Continue Plan of Care Treatment Plan: Bed Mobility, Education, Functional Activity Erick, Functional Strength, Group Therapy, Gait, Safety, Therapeutic Exercise, Transfers Treatment Duration: Jan 01, 2021 Frequency: At least 5 of 7 days/Wk (IRF) Estimated Hrs Per Day: Other (see notation) Patient and/or Family Agrees t: Yes Safety Risks/Education Patient Education: Transfer Techniques, Correct Positioning, W/C Management, Safety Issues Teaching Recipient: Patient Teaching Methods: Demonstration, Discussion Response to Teaching: Reinforcement Needed Time/GCodes Time In: 1300 Time Out: 1330 Total Billed Treatment Time: 30 Total Billed Treatment 1 visit EX 10' FA 20' JNESEN AMBRIZ PT Dec 16, 2020 13:27
[2020-12-16 18:00] VITALS: BP 122/86
[2020-12-16] MEDS: MIRTAZAPINE 15 MG (REMERON) TAB PO SCH (20:43)
[2020-12-16] MEDS: MELATONIN 3 MG TABLET PO SCH (20:43)
[2020-12-17] MEDS: inSUlin ASPART (NovoLOG) 1 UNIT/0.01 ML (CHARGE PER UNIT) SC SCH ×4 (05:54→20:16)
[2020-12-17] MEDS: CATHETER FLUSH 10 ML SYR IV SCH ×3 (05:55→20:19)
[2020-12-17 06:25] VITALS: BP 154/83
[2020-12-17] MEDS: ASCORBIC ACID (VIT C) 500 MG TABLET PO SCH ×2 (08:03→17:05)
[2020-12-17] MEDS: PANTOPRAZOLE 40 MG (PROTONIX) TAB PO SCH (08:03)
[2020-12-17] MEDS: predniSONE 10 MG TAB PO SCH (08:03)
[2020-12-17] MEDS: meTOprolol TARTRATE 50 MG (LOPRESSOR) TAB PO SCH ×2 (08:04→20:14)
[2020-12-17] MEDS: FINASTERIDE (PROSCAR) 5 MG TAB PO SCH (08:04)
[2020-12-17] MEDS: ACETAMINOPHEN 325 MG TABLET PO SCH ×3 (08:04→20:14)
[2020-12-17] MEDS: VITAMIN D3 25 MCG (1,000 UNITS) TABLET PO SCH (08:04)
[2020-12-17] MEDS: APIXABAN 5 MG (ELIQUIS) TABLET PO SCH ×2 (08:04→20:14)
[2020-12-17] MEDS: GABAPENTIN 100 MG (NEURONTIN) CAP PO SCH ×3 (08:04→20:14)
[2020-12-17] MEDS: ASPIRIN 81 MG CHEW (CHILDREN'S ASA) PO SCH (08:04)
[2020-12-17] MEDS: TAMSULOSIN 0.4 MG (FLOMAX) CAP PO SCH (08:04)
[2020-12-17] MEDS: SALIVA STIMULANT MOUTH SPRAY (BIOTENE) 1.5 OZ MM SCH ×4 (08:05→20:17)
[2020-12-17] MEDS: ZINC OXIDE 16% OINT (BUTT PASTE) 57 GM TUBE TOP PRN ×2 (08:05→20:17)
[2020-12-17] MEDS: FLUTICASONE NASAL SPRAY (FLONASE) 16 GM BTL NS SCH (08:06)
[2020-12-17] MEDS: polyethylene glycoL POWDER 17 GM (MIRALAX) PACK PO SCH ×2 (08:06→19:53)
[2020-12-17] MEDS: SALINE NASAL SPRAY (OCEAN) 45 ML BTL NS SCH ×3 (08:06→20:18)
[2020-12-17] MEDS: DOCUSATE SODIUM 100 MG (COLACE) CAP PO SCH ×2 (08:06→19:52)
[2020-12-17] MEDS: SENNA W/DOCUSATE (SENOKOT S) TABLET PO SCH ×2 (08:06→19:53)
--- NOTE | 2020-12-17 08:28 | PM&R Progress Note ---
Subjective HPI/CC On Admission Date Seen by Provider: Dec 17, 2020 Time Seen by Provider: 12:45 Subjective/Events-last exam 12/17/20: Family training today at 10:00 Still has a stage 2 buttock decubitus ulcer Overall feels like he is doing much better Son at bedside when I rounded later today and he was evaluating his progress 12/16/20: Pt doing pretty well Bowels moved today Left midline is functioning Blood sugar 147 Stage 2 decubitus ulcer on the buttock Working really hard to stand 12/15/20: Overall doing well No issues BM+ No falls 12/14/20: Doing well BM+ Dyspnea still continues No pain 12/13/20: Patient more alert today and energized No pain reported Oxycodone helps the foot pain Participating with therapy 12/12/20: Pt doing a lot better Having a lot of pain, takes Oxycodone for his foot and leg pain Bowels are moving Sleeping better Pt very well could require a group home since he lives alone and is just not progressing well 12/11/20: No major issues Pretty much has plateaued and not made much progress with ambulation Epistaxis of the left nostril Nasal sprays will be continued Re-check and check with insurance coverage but he very well may need to be in a group home 12/10/20: Pt doing pretty well Slept on and off last night Remains on 4 liters of O2 Swelling in his feel is pretty minimal Did not use his BiPAP last night and that likely is the cause of not sleeping well 12/09/20: Pt slept pretty well Bowels are moving PLTs are 97, 000 Normal WBC down from 21 when he first arrived Denies any significant issues Trying to get strong enough to walk 12/08/20: Slept well last night Remeron and Melatonin has helped him a lot Sinus tachy last night BM 12/06/20 so laxatives given No other issues 12/07/20: Slept better Yonker provided for phlem HR 60 Appreciate Cardiology 4L/min O2 BM 12/06/20 12/06/20: HR 122 Cardiology consulted Sugar 54 so decreasing insulin BM++ No pain reported No sleeping well so added hypnotics of Melatonin and Remeron 12/05/20: Patient doing well Worn out from fatigue Sugars are ok No pain reported Tachycardic so consulting Dr Carranza Midline was accidently pulled out so need a new one placed Checked meds and labs Review of Systems General: Fatigue, Malaise Pulmonary: Dyspnea Neurological: Weakness Objective Exam Vital Signs Vital Signs Date Time Temp Pulse Resp B/P (MAP) Pulse Ox O2 Delivery O2 Flow Rate FiO2 12/17/20 20:00 Nasal Cannula 4.00 12/17/20 18:44 95 12/17/20 18:00 36.0 103 16 143/82 (102) Capillary Refill : General Appearance: No Apparent Distress, WD/WN, Anxious, Chronically ill, Obese HEENT: PERRL/EOMI, Normal ENT Inspection, Pharynx Normal Neck: Full Range of Motion, Normal Inspection, Non Tender, Supple, Carotid Bruit Respiratory: Chest Non Tender, No Accessory Muscle Use, No Respiratory Distress, Crackles, Decreased Breath Sounds Cardiovascular: Regular Rate, Rhythm, No Gallop, No JVD, No Murmur, Normal Peripheral Pulses Gastrointestinal: Normal Bowel Sounds, No Organomegaly, No Pulsatile Mass, Non Tender, Soft Back: Normal Inspection, No CVA Tenderness, No Vertebral Tenderness Extremity: Normal Capillary Refill, Normal Inspection, Normal Range of Motion, Non Tender, No Calf Tenderness, Pedal Edema Neurologic/Psychiatric: Alert, Oriented x3, No Motor/Sensory Deficits, 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 FIM Transfers Therapy Code Descriptions/Definitions Functional [place] Measure: 0=Not Assessed/NA 4=Minimal Assistance 1=Total Assistance 5=Supervision or Setup 2=Maximal Assistance 6=Modified [place] 3=Moderate Assistance 7=Complete IndependenceSCALE: Activities may be completed with or without assistive devices. 0-Flhwpwjcda-qwgzgip completes the activity by him/herself with no assistance from a helper. 5-Set-up or Clean-up Assistance-helper sets up or cleans up; patient completes activity. [place] assists only prior to or following the activity. 4-Supervision or Touching Assistance-helper provides verbal cues and/or touching/steadying and/or contact guard assistance as patient completes activit y. Assistance may be provided throughout the activity or intermittently. 3-Partial/Moderate Assistance-helper does LESS THAN HALF the effort. [place] lifts, holds or supports trunk or limbs, but provides less than half the effort. 2-Substantial/Maximal Assistance-helper does MORE THAN HALF the effort. [place] lifts or holds trunk or limbs and provides more than half the effort. 4-Cpslsaejt-tugwel does ALL the effort. Patient does none of the effort to complete the activity. Or, the assistance of 2 or more helpers is required for the patient to complete the activity. If activity was not attempted, code reason: 7-Patient Refused. 9-Not Applicable-not attempted and the patient did not perform the activity before the current illness, exacerbation or injury. 10-Not Attempted due to Environmental Limitations-(lack of equipment, weather restraints, etc.). 88-Not Attempted due to Medical Conditions or Safety Concerns. Roll Left to Right (QC): 3 Sit to Lying (QC): 2 Sit to Stand (QC): 2 Chair/Ibs-nk-Imcpr Xfer(QC): 2 Car Transfer (QC): 88 (unsafe to attempt due to heavy need for assist. ) Gait Training Walk 10 feet (QC): 88 Walk 50 ft with 2 Turns(QC): 88 Walk 150 ft (QC): 88 Walking 10ft/uneven surface-QC: 88 Wheelchair Training Does the Pt Use a Wheelchair?: Yes Wheel 50 ft with 2 turns (QC): 4 Wheel 150 ft (QC): 4 Type of Wheelchair: Manual Stair Training 1 Step (curb) (QC): 88 4 Steps (QC): 88 12 Steps (QC): 88 Balance Picking up an Object (QC): 88 ADL-Treatment Eating (QC): 6 Oral Hygiene (QC): 7 Bathing Location: L Arm, R Arm, L Upper Leg, R Upper Leg, Chest, Abdomen, Perineal Area Shower/Bathe Self (QC): 3 (Min assist seated on shower chair. Pt. encouraged in new technique to cleanse yo area. Uses LH sponge for LE.) Upper Body Dressing (QC): 4 (SBA) Lower Body Dressing (QC): 1 (Pt. requires assistance to thread bilateral LE into shorts, and feet into shoes. 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 Obesity DM Neuropathy Anemia O2 dependence Plan: IRF protocol Monitor O2 O2 supplement 12/05/20: O2 maintained IRF protocol Cardiology consultation appreciated Midline replacement 12/06/20: Cardiology consult appreciated Decrease insulin Midline Monitor closely 12/07/20: Monitor closely O2 wean Increase acitivity Maintain Remeron and Melatonin 12/08/20: Monitor closely Check labs in am Monitor tachycardia Remeron and Melatonin 12/09/20: Labs normal Improved strength Weaning O2 Monitor insomnia Increase insulin 12/10/20: Monitor O2 Increase strength Severe myopathy of legs 12/11/20: Difficult to progress Continue therapy May need NHP 12/12/20: Pain control with Oxycodone Monitor bowels Monitor O2 12/13/20: Monitor pain Wean O2 CPAP mask seems to be working better 12/14/20: Improved status Stood up today with help O2 12/15/20: Wean O2 Monitor ambulation CPAP at night 12/16/20: Monitor progress Decubitus ulcer management Monitor BP 12/17/20: Family education/training today Monitor O2 CPAP with O2 (1) COVID-19 (2) RICHY on CPAP (3) Obesity (4) Diabetes (5) Hypertension (6) Edema (7) Neuropathy (8) Anemia (9) Advanced age DEANNA BOO DO Dec 17, 2020 08:28
[2020-12-17] MEDS: ADVAIR HFA 115/21 MCG INHALER 8 GM IH SCH ×2 (09:21→18:42)
[2020-12-17] MEDS: UMECLIDINIUM BROMIDE (INCRUSE ELLIPTA) 7'S IH SCH (09:21)
--- NOTE | 2020-12-17 10:59 | Physical Therapy Daily Note ---
PT Daily Note-Current Subjective Patient in recliner pre tx, agrees to PT, has no complaints of pain but does have some swelling in right leg, no redness or heat and giorgio is negative. Will be co-treating with OT due to poor patient mobility, strength, endurance, the need to coordinate UE and LE during activity, safety and reduce risk of falls, SOB and decreased O2 with activity. Appearance Patient in recliner post tx with nurse call, phone, tray, all needs met. Legs elevated, son in room. Mental Status Patient Orientation: Person, Place, Situation Attachments: Oxygen Transfers SCALE: Activities may be completed with or without assistive devices. 6-Vtncfpazca-jbpqvyx completes the activity by him/herself with no assistance from a helper. 5-Set-up or Clean-up Assistance-helper sets up or cleans up; patient completes activity. [place] assists only prior to or following the activity. 4-Supervision or Touching Assistance-helper provides verbal cues and/or touching/steadying and/or contact guard assistance as patient completes activity. Assistance may be provided throughout the activity or intermittently. 3-Partial/Moderate Assistance-helper does LESS THAN HALF the effort. [place] lifts, holds or supports trunk or limbs, but provides less than half the effort. 2-Substantial/Maximal Assistance-helper does MORE THAN HALF the effort. [place] lifts or holds trunk or limbs and provides more than half the effort. 6-Xzikdjkys-tlvbjp does ALL the effort. Patient does none of the effort to complete the activity. Or, the assistance of 2 or more helpers is required for the patient to complete the activity. If activity was not attempted, code reason: 7-Patient Refused. 9-Not Applicable-not attempted and the patient did not perform the activity before the current illness, exacerbation or injury. 10-Not Attempted due to Environmental Limitations-(lack of equipment, weather restraints, etc.). 88-Not Attempted due to Medical Conditions or Safety Concerns. Sit to Stand (QC): 1 Chair/Qcv-wa-Aeytc Xfer(QC): 1 Patient performs stand and transfer to WC with sit to stand machine (dependent). He then propells manual WC to therapy gym 100' SBA and needs several rest breaks, goes to parallel bars and stands (max assist) x2 for about 2 minutes the first time and one the seconds, then he stands twice and takes about 8 steps with max assist, propels manual WC back to room, performs a stand pivot transfer with therapist assist (max assist). Weight Bearing Full Weight Bearing Full Weight Bearing Treatments PT performed transfers, ambulation, WC mobility, standing, OT performed UE positioning and safety during activity, assist with transfers and standing. Assessment Current Status: Fair Progress Patient was able to take steps for the first time. Patient has poor endurance and needs frequent rest breaks and gets severely SOB with activity. PT Short Term Goals Short Term Goals Time Frame: Dec 11, 2020 Roll Left & Right: 4 Sit to lyin Lying to sitting on side of be: 4 (met) Sit to stand: 3 Chair/pwz-ks-yfdgh transfer: 3 Walk 10 feet: 3 Walk 50 feet with two turns: 3 PT Director Apparel Goals Director Apparel Goals PT Director Apparel Goals Time Frame: Jan 01, 2021 Roll Left & Right (QC): 6 Sit to Lying (QC): 6 Lying-Sitting on Side/Bed(QC): 6 Sit to Stand (QC): 6 Chair/Iqe-iw-Zhqcy Xfer(QC): 6 Toilet Transfer (QC): 6 Car Transfer (QC): 6 Does the Patient Walk: No and Walking Goal IS indicated Walk 10 feet (QC): 6 Walk 50ft with 2 Turns (QC): 6 Walk 150 ft (QC): 6 Walking 10ft on Uneven Surface: 4 1 Step (curb) (QC): 4 4 Steps (QC): 4 12 Steps (QC): 4 Picking up an Object (QC): 5 Does the Pt use WC or Scooter?: No Wheel 50 feet with 2 turns (QC: 9 Wheel 150 feet: 9 PT Plan Problem List Problem List: Activity Tolerance, Functional Strength, Safety, Balance, Gait, Transfer, Bed Mobility, ROM Treatment/Plan Treatment Plan: Continue Plan of Care Treatment Plan: Bed Mobility, Education, Functional Activity Erick, Functional Strength, Group Therapy, Gait, Safety, Therapeutic Exercise, Transfers Treatment Duration: Jan 01, 2021 Frequency: At least 5 of 7 days/Wk (IRF) Estimated Hrs Per Day: Other (see notation) Patient and/or Family Agrees t: Yes Safety Risks/Education Patient Education: Gait Training, Transfer Techniques, Correct Positioning, W/C Management, Safety Issues Teaching Recipient: Patient Teaching Methods: Demonstration, Discussion Response to Teaching: Reinforcement Needed Time/GCodes Time In: 1000 Time Out: 1100 Total Billed Treatment Time: 60 Total Billed Treatment 1 visit FA 60' co-treated for 60' JENSEN AMBRIZ PT Dec 17, 2020 10:59
--- NOTE | 2020-12-17 12:10 | Occupational Ther Daily Note ---
OT Current Status-Daily Note Subjective No pain reported. Appearance Pt. up in chair. Pt's son came in for family training. Pt. agrees to work with therapy. Mental Status/Objective Patient Orientation: Person, Place Attachments: IV ADL-Treatment Therapy Code Descriptions/Definitions Functional [place] Measure: 0=Not Assessed/NA 4=Minimal Assistance 1=Total Assistance 5=Supervision or Setup 2=Maximal Assistance 6=Modified [place] 3=Moderate Assistance 7=Complete IndependenceSCALE: Activities may be completed with or without assistive devices. 5-Mtupgazfmv-vftszmy completes the activity by him/herself with no assistance from a helper. 5-Set-up or Clean-up Assistance-helper sets up or cleans up; patient completes activity. [place] assists only prior to or following the activity. 4-Supervision or Touching Assistance-helper provides verbal cues and/or touching/steadying and/or contact guard assistance as patient completes activity. Assistance may be provided throughout the activity or intermittently. 3-Partial/Moderate Assistance-helper does LESS THAN HALF the effort. [place] lifts, holds or supports trunk or limbs, but provides less than half the effort. 2-Substantial/Maximal Assistance-helper does MORE THAN HALF the effort. [place] lifts or holds trunk or limbs and provides more than half the effort. 9-Kkzfnkgri-jgnhnd does ALL the effort. Patient does none of the effort to complete the activity. Or, the assistance of 2 or more helpers is required for the patient to complete the activity. If activity was not attempted, code reason: 7-Patient Refused. 9-Not Applicable-not attempted and the patient did not perform the activity before the current illness, exacerbation or injury. 10-Not Attempted due to Environmental Limitations-(lack of equipment, weather restraints, etc.). 88-Not Attempted due to Medical Conditions or Safety Concerns. On/Off Footwear: 3 Other Treatment Pt. up in chair. Pt. has on hospital gown, but does not want to don clean long pants, as he only has one pair of shorts here that are dirty. Pt. agrees to change hospital gown before family training. Son present and is educated regarding pt's current status. PT comes in later in treatment for partial co- treatment due to need of skilled assistance x 2. Pt's son is educated by OT regarding his current ADL status, goals, and OT assessments while PT educates regarding current mobility status. Pt's son is also educated on use of the sit- stand lift. Pt. is transferred with lift to wheelchair. Pt. is encouraged to se lf propel chair to therapy gym. Pt. is able to stand x 4 with mod/max x 2 for upright posture, hand placement, and foot placement. Pt. is also cued to position self correctly at beginning of treatment for optimal stand. Pt. is able to take several steps during two of the transfers in the parallel bars, with max assist and wheelchair follow. Pt. fatigues easily, and requires sub stantial rest break in between each stand. Son does convey that he is concerned about his father being able to stand at home, as he will be alone partially. OT dons KRIS hose for pt. when back in room, and bilateral LE elevated due to Right LE swelling. Pt. reports nursing aware. Pt. transfers back to chair with max assist for squat pivot transfer. All needs met and all questions answered for pt. and son. Education OT Patient Education: Correct positioning, Exercise program, Modified ADL techniques, Progress toward Goal/Update tx plan, Purpose of tx/functional activities, Reviewed precautions, Rehab process, Transfer techniques Teaching Recipient: Patient Teaching Methods: Demonstration, Discussion Response to Teaching: Verbalize Understanding, Return Demonstration OT Short Term Goals Short Term Goals Time Frame: Dec 11, 2020 Eatin Oral hygiene: 88 Toileting hygiene: 2 Shower/bathe self: 3 Upper body dressin Lower body dressin Putting on/taking off footwear: 6 OT Plant Floor Automation Manager Goals Senior Living Goals Time Frame: Dec 25, 2020 Eating (QC): 6 Oral Hygiene (QC): 6 Toileting Hygiene (QC): 5 Shower/Bathe Self (QC): 5 Upper Body Dressing (QC): 6 Lower Body Dressing (QC): 4 On/Off Footwear (QC): 6 Additional Goals: 1-Demonstrate ADL Tasks, 2-Verbalize Understanding, 3- ImproveStrength/Erick 1=Demonstrate adherence to instructed precautions during ADL tasks. 2=Patient will verbalize/demonstrate understanding of assistive devices/modifications for ADL. 3=Patient will improve strength/tolerance for activity to enable patient to perform ADL's. OT Education/Plan Problem List/Assessment Assessment: Decreased Activ Tolerance, Decreased UE Strength, Dependent Transfers, Impaired Funct Balance, Impaired I ADL's, Impaired Self-Care Skills, Restricted Funct UE ROM Discharge Recommendations Plan/Recommendations: Continue POC Therapy Discharge Recommendati: Post Acute OT Treatment Plan/Plan of Care Treatment,Training & Education: Yes Patient would benefit from OT for education, treatment and training to promote independence in ADL's, mobility, safety and/or upper extremity function for ADL's. Plan of Care: ADL Retraining, Caregiver Training, Concurrent Therapy, Functional Mobility, Group Exercise/Act as Ind, UE Funct Exercise/Act, UE Neur omus Re-Ed/Coord, W/C Management Training Treatment Duration: Dec 25, 2020 Frequency: Modified Program (IRF) Estimated Hrs Per Day: 1 hour per day Agreement: Yes Rehab Potential: Fair Time/GCodes Start Time: 09:40 Stop Time: 10:55 Total Time Billed (hr/min): 75 Billed Treatment Time 9060-0463 1, ADL x 20minutes 1801-4518 FA x 55minutes (co-treatment with PT. Please see above note for designated roles.) CAMILA SINCLAIR OT Dec 17, 2020 12:10
--- NOTE | 2020-12-17 12:24 | Cardiology Progress Note ---
Subjective Date Seen by Provider: Dec 17, 2020 Time Seen by Provider: 12:23 Subjective/Events-last exam patient was seen at bedside, sitting comfortably, denied any chest pain or shortness of breath Review of Systems General: No Chills, No Night Sweats, No Fatigue, No Malaise, No Appetite, No Other HEENT: No Head Aches, No Visual Changes, No Eye Pain, No Ear Pain, No Dysphasia, No Sinus Congestion, No Post Nasal Drip, No Sore Throat, No Other Pulmonary: No Dyspnea, No Cough, No Pleuritic Chest Pain, No Other Cardiovascular: No: Chest Pain, Palpitations, Orthopnea, Paroxysmal Noc. Dyspn ea, Edema, Lt Headedness, Other Objective-Cardiology Exam Last Set of Vital Signs Vital Signs 12/17/20 12/17/20 06:25 09:22 Temp 36.0 Pulse 70 Resp 22 B/P (MAP) 154/83 (106) Pulse Ox 98 O2 Delivery Nasal Cannula O2 Flow Rate 4.00 Capillary Refill : I&O Intake and Output 12/17/20 00:00 Intake Total 1180 ml Output Total 2100 ml Balance -920 ml Intake Oral 1180 ml Output Urine Total 2100 ml # Voids 3 # Bowel Movements 1 General: Alert, Oriented X3, Cooperative HEENT: Atraumatic, PERRLA Neck: Supple, No JVD, No Thyromegaly Lungs: Clear to Auscultation, Normal Air Movement Heart: Normal S1, Normal S2, No Murmurs, Other (irregularly irregular) Abdomen: Normal Bowel Sounds, Soft, No Tenderness, No Hepatosplenomegaly, No Masses Extremities: No Clubbing, No Cyanosis Skin: No Rashes, No Significant Lesion Neuro: Cranial Nerves 3-12 NL Psych/Mental Status: Mental Status NL, Mood NL A/P-Cardiology Admission Diagnosis Afib HTN HLP DM Assessment/Plan Atrial fibrillation with controlled ventricular rate, maintained on Eliquis, continue to monitor. X Hypertension, was elevated today but usually under good control. I will continue monitoring, no changes recommended HLP, maintained on statin, monitored as outpatient DM, management per Dr. Dawkins Critical illness myopathy, COVID-19, continue PT/OT RICHY, treated with CPAP, managed by JOSE MARIA Mohan MD Dec 17, 2020 12:24
--- NOTE | 2020-12-17 13:25 | Physical Therapy Daily Note ---
PT Daily Note-Current Subjective Patient in recliner pre tx, agrees to PT, has no complaints of pain. Appearance Patient in recliner post tx with nurse call, phone, tray, all needs met. Mental Status Patient Orientation: Normal For Age Attachments: Oxygen Transfers SCALE: Activities may be completed with or without assistive devices. 3-Iouiywkdsz-qqjmqsw completes the activity by him/herself with no assistance from a helper. 5-Set-up or Clean-up Assistance-helper sets up or cleans up; patient completes activity. [place] assists only prior to or following the activity. 4-Supervision or Touching Assistance-helper provides verbal cues and/or touching/steadying and/or contact guard assistance as patient completes activity. Assistance may be provided throughout the activity or intermittently. 3-Partial/Moderate Assistance-helper does LESS THAN HALF the effort. [place] lifts, holds or supports trunk or limbs, but provides less than half the effort. 2-Substantial/Maximal Assistance-helper does MORE THAN HALF the effort. [place] lifts or holds trunk or limbs and provides more than half the effort. 5-Llmpdqkim-imtfys does ALL the effort. Patient does none of the effort to complete the activity. Or, the assistance of 2 or more helpers is required for the patient to complete the activity. If activity was not attempted, code reason: 7-Patient Refused. 9-Not Applicable-not attempted and the patient did not perform the activity before the current illness, exacerbation or injury. 10-Not Attempted due to Environmental Limitations-(lack of equipment, weather restraints, etc.). 88-Not Attempted due to Medical Conditions or Safety Concerns. Weight Bearing Full Weight Bearing Full Weight Bearing Exercises Supine Ex: Ankle pumps, Quad Set, Glut sets, Heel Slides, Short Arc Quads, Straight leg raise, Hip abd/add Supine Reps: 20 (done in recliner with legs elevated) Seated Therapy Exercises: Ankle pumps, Long arc quads, Hip flexion Seated Reps: 20 Treatments LE exercise Assessment Current Status: Fair Progress improving LE strength, patient still needs occasional rest breaks due to SOB and fatigue PT Short Term Goals Short Term Goals Time Frame: Dec 11, 2020 Roll Left & Right: 4 Sit to lyin Lying to sitting on side of be: 4 (met) Sit to stand: 3 Chair/pxn-kh-opgrq transfer: 3 Walk 10 feet: 3 Walk 50 feet with two turns: 3 PT Longterm Goals Longterm Goals PT Site Lead Goals Time Frame: Jan 01, 2021 Roll Left & Right (QC): 6 Sit to Lying (QC): 6 Lying-Sitting on Side/Bed(QC): 6 Sit to Stand (QC): 6 Chair/Xdc-iy-Piase Xfer(QC): 6 Toilet Transfer (QC): 6 Car Transfer (QC): 6 Does the Patient Walk: No and Walking Goal IS indicated Walk 10 feet (QC): 6 Walk 50ft with 2 Turns (QC): 6 Walk 150 ft (QC): 6 Walking 10ft on Uneven Surface: 4 1 Step (curb) (QC): 4 4 Steps (QC): 4 12 Steps (QC): 4 Picking up an Object (QC): 5 Does the Pt use WC or Scooter?: No Wheel 50 feet with 2 turns (QC: 9 Wheel 150 feet: 9 PT Plan Problem List Problem List: Activity Tolerance, Functional Strength, Safety, Balance, Gait, Transfer, Bed Mobility, ROM Treatment/Plan Treatment Plan: Continue Plan of Care Treatment Plan: Bed Mobility, Education, Functional Activity Erick, Functional Strength, Group Therapy, Gait, Safety, Therapeutic Exercise, Transfers Treatment Duration: Jan 01, 2021 Frequency: At least 5 of 7 days/Wk (IRF) Estimated Hrs Per Day: Other (see notation) Patient and/or Family Agrees t: Yes Safety Risks/Education Patient Education: Correct Positioning, Safety Issues Teaching Recipient: Patient Teaching Methods: Demonstration, Discussion Response to Teaching: Reinforcement Needed Time/GCodes Time In: 1300 Time Out: 1330 Total Billed Treatment Time: 30 Total Billed Treatment 1 visit EX 30' JENSEN AMBRIZ PT Dec 17, 2020 13:25
[2020-12-17 18:00] VITALS: BP 143/82
[2020-12-17] MEDS: MIRTAZAPINE 15 MG (REMERON) TAB PO SCH (20:14)
[2020-12-17] MEDS: MELATONIN 3 MG TABLET PO SCH (20:14)
[2020-12-18] MEDS: CATHETER FLUSH 10 ML SYR IV SCH ×3 (05:37→21:14)
[2020-12-18 06:03] VITALS: BP 150/74
[2020-12-18] MEDS: inSUlin ASPART (NovoLOG) 1 UNIT/0.01 ML (CHARGE PER UNIT) SC SCH ×4 (06:03→21:13)
[2020-12-18] MEDS: PANTOPRAZOLE 40 MG (PROTONIX) TAB PO SCH (08:05)
[2020-12-18] MEDS: TAMSULOSIN 0.4 MG (FLOMAX) CAP PO SCH (08:05)
[2020-12-18] MEDS: GABAPENTIN 100 MG (NEURONTIN) CAP PO SCH ×3 (08:05→21:11)
[2020-12-18] MEDS: VITAMIN D3 25 MCG (1,000 UNITS) TABLET PO SCH (08:05)
[2020-12-18] MEDS: meTOprolol TARTRATE 50 MG (LOPRESSOR) TAB PO SCH ×2 (08:05→21:11)
[2020-12-18] MEDS: ASPIRIN 81 MG CHEW (CHILDREN'S ASA) PO SCH (08:05)
[2020-12-18] MEDS: predniSONE 10 MG TAB PO SCH (08:06)
[2020-12-18] MEDS: APIXABAN 5 MG (ELIQUIS) TABLET PO SCH ×2 (08:06→21:11)
[2020-12-18] MEDS: ASCORBIC ACID (VIT C) 500 MG TABLET PO SCH ×2 (08:06→18:14)
[2020-12-18] MEDS: ACETAMINOPHEN 325 MG TABLET PO SCH ×3 (08:06→21:11)
[2020-12-18] MEDS: ZINC OXIDE 16% OINT (BUTT PASTE) 57 GM TUBE TOP PRN (08:06)
[2020-12-18] MEDS: SALINE NASAL SPRAY (OCEAN) 45 ML BTL NS SCH ×3 (08:07→21:10)
[2020-12-18] MEDS: FINASTERIDE (PROSCAR) 5 MG TAB PO SCH (08:07)
[2020-12-18] MEDS: SALIVA STIMULANT MOUTH SPRAY (BIOTENE) 1.5 OZ MM SCH ×4 (08:08→21:10)
[2020-12-18] MEDS: FLUTICASONE NASAL SPRAY (FLONASE) 16 GM BTL NS SCH (08:08)
[2020-12-18] MEDS: SENNA W/DOCUSATE (SENOKOT S) TABLET PO SCH ×2 (08:08→21:13)
[2020-12-18] MEDS: polyethylene glycoL POWDER 17 GM (MIRALAX) PACK PO SCH ×2 (08:08→21:12)
[2020-12-18] MEDS: DOCUSATE SODIUM 100 MG (COLACE) CAP PO SCH ×3 (08:08→21:14)
--- NOTE | 2020-12-18 08:45 | PM&R Progress Note ---
Subjective HPI/CC On Admission Date Seen by Provider: Dec 18, 2020 Time Seen by Provider: 09:00 Subjective/Events-last exam 12/18/20: Discharge Wednesday to the residential Family training did not go well Son was there but did not engage Insists on going home but that would not be a possibility Placing Sherrill on buttock 12/17/20: Family training today at 10:00 Still has a stage 2 buttock decubitus ulcer Overall feels like he is doing much better Son at bedside when I rounded later today and he was evaluating his progress 12/16/20: Pt doing pretty well Bowels moved today Left midline is functioning Blood sugar 147 Stage 2 decubitus ulcer on the buttock Working really hard to stand 12/15/20: Overall doing well No issues BM+ No falls 12/14/20: Doing well BM+ Dyspnea still continues No pain 12/13/20: Patient more alert today and energized No pain reported Oxycodone helps the foot pain Participating with therapy 12/12/20: Pt doing a lot better Having a lot of pain, takes Oxycodone for his foot and leg pain Bowels are moving Sleeping better Pt very well could require a residential since he lives alone and is just not progressing well 12/11/20: No major issues Pretty much has plateaued and not made much progress with ambulation Epistaxis of the left nostril Nasal sprays will be continued Re-check and check with insurance coverage but he very well may need to be in a residential 12/10/20: Pt doing pretty well Slept on and off last night Remains on 4 liters of O2 Swelling in his feel is pretty minimal Did not use his BiPAP last night and that likely is the cause of not sleeping well 12/09/20: Pt slept pretty well Bowels are moving PLTs are 97, 000 Normal WBC down from 21 when he first arrived Denies any significant issues Trying to get strong enough to walk 12/08/20: Slept well last night Remeron and Melatonin has helped him a lot Sinus tachy last night BM 12/06/20 so laxatives given No other issues 12/07/20: Slept better Yonker provided for phlem HR 60 Appreciate Cardiology 4L/min O2 BM 12/06/20 12/06/20: HR 122 Cardiology consulted Sugar 54 so decreasing insulin BM++ No pain reported No sleeping well so added hypnotics of Melatonin and Remeron 12/05/20: Patient doing well Worn out from fatigue Sugars are ok No pain reported Tachycardic so consulting Dr Carranza Midline was accidently pulled out so need a new one placed Checked meds and labs Review of Systems General: Fatigue, Malaise Pulmonary: Dyspnea Objective Exam Vital Signs Vital Signs Date Time Temp Pulse Resp B/P (MAP) Pulse Ox O2 Delivery O2 Flow Rate FiO2 12/18/20 22:27 Nasal Cannula 12/18/20 20:09 4.00 12/18/20 17:20 36.4 99 20 113/75 (88) 95 Capillary Refill : General Appearance: No Apparent Distress, WD/WN, Anxious, Chronically ill, Obese HEENT: PERRL/EOMI, Normal ENT Inspection, Pharynx Normal Neck: Full Range of Motion, Normal Inspection, Non Tender, Supple, Carotid Bruit Respiratory: Chest Non Tender, No Accessory Muscle Use, No Respiratory Distress, Crackles, Decreased Breath Sounds Cardiovascular: Regular Rate, Rhythm, No Gallop, No JVD, No Murmur, Normal Peripheral Pulses Gastrointestinal: Normal Bowel Sounds, No Organomegaly, No Pulsatile Mass, Non Tender, Soft Back: Normal Inspection, No CVA Tenderness, No Vertebral Tenderness Extremity: Normal Capillary Refill, Normal Inspection, Normal Range of Motion, Non Tender, No Calf Tenderness, Pedal Edema Neurologic/Psychiatric: Alert, Oriented x3, No Motor/Sensory Deficits, customer care assistant II- XII Norm as Tested, Depressed Affect, Motor Weakness (generalized all e xtremities 3/5) Skin: Normal Color, Warm/Dry Lymphatic: No Adenopathy Results/Procedures Lab Patient resulted labs reviewed. FIM Transfers Therapy Code Descriptions/Definitions Functional [place] Measure: 0=Not Assessed/NA 4=Minimal Assistance 1=Total Assistance 5=Supervision or Setup 2=Maximal Assistance 6=Modified [place] 3=Moderate Assistance 7=Complete IndependenceSCALE: Activities may be completed with or without assistive devices. 6-Dfmwqdgsrp-xzkoxlq completes the activity by him/herself with no assistance from a helper. 5-Set-up or Clean-up Assistance-helper sets up or cleans up; patient completes activity. [place] assists only prior to or following the activity. 4-Supervision or Touching Assistance-helper provides verbal cues and/or touching/steadying and/or contact guard assistance as patient completes activity. Assistance may be provided throughout the activity or intermittently. 3-Partial/Moderate Assistance-helper does LESS THAN HALF the effort. [place] lifts, holds or supports trunk or limbs, but provides less than half the effort. 2-Substantial/Maximal Assistance-helper does MORE THAN HALF the effort. [place] lifts or holds trunk or limbs and provides more than half the effort. 7-Bronqgmfz-zzcjnp does ALL the effort. Patient does none of the effort to complete the activity. Or, the assistance of 2 or more helpers is required for the patient to complete the activity. If activity was not attempted, code reason: 7-Patient Refused. 9-Not Applicable-not attempted and the patient did not perform the activity before the current illness, exacerbation or injury. 10-Not Attempted due to Environmental Limitations-(lack of equipment, weather restraints, etc.). 88-Not Attempted due to Medical Conditions or Safety Concerns. Roll Left to Right (QC): 3 Sit to Lying (QC): 2 Sit to Stand (QC): 1 Chair/Jlo-av-Hhzyy Xfer(QC): 1 Car Transfer (QC): 88 (unsafe to attempt due to heavy need for assist. ) Gait Training Walk 10 feet (QC): 88 Walk 50 ft with 2 Turns(QC): 88 Walk 150 ft (QC): 88 Walking 10ft/uneven surface-QC: 88 Wheelchair Training Does the Pt Use a Wheelchair?: Yes Wheel 50 ft with 2 turns (QC): 4 Wheel 150 ft (QC): 4 Type of Wheelchair: Manual Stair Training 1 Step (curb) (QC): 88 4 Steps (QC): 88 12 Steps (QC): 88 Balance Picking up an Object (QC): 88 ADL-Treatment Eating (QC): 6 Oral Hygiene (QC): 7 Bathing Location: L Arm, R Arm, L Upper Leg, R Upper Leg, Chest, Abdomen, Perineal Area Shower/Bathe Self (QC): 3 (Min assist seated on shower chair. Pt. encouraged in new technique to cleanse yo area. Uses LH sponge for LE.) Upper Body Dressing (QC): 4 (SBA) Lower Body Dressing (QC): 1 (Pt. requires assistance to thread bilateral LE into shorts, and feet into shoes. 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 Obesity DM Neuropathy Anemia O2 dependence Plan: IRF protocol Monitor O2 O2 supplement 12/05/20: O2 maintained IRF protocol Cardiology consultation appreciated Midline replacement 12/06/20: Cardiology consult appreciated Decrease insulin Midline Monitor closely 12/07/20: Monitor closely O2 wean Increase acitivity Maintain Remeron and Melatonin 12/08/20: Monitor closely Check labs in am Monitor tachycardia Remeron and Melatonin 12/09/20: Labs normal Improved strength Weaning O2 Monitor insomnia Increase insulin 12/10/20: Monitor O2 Increase strength Severe myopathy of legs 12/11/20: Difficult to progress Continue therapy May need NHP 12/12/20: Pain control with Oxycodone Monitor bowels Monitor O2 12/13/20: Monitor pain Wean O2 CPAP mask seems to be working better 12/14/20: Improved status Stood up today with help O2 12/15/20: Wean O2 Monitor ambulation CPAP at night 12/16/20: Monitor progress Decubitus ulcer management Monitor BP 12/17/20: Family education/training today Monitor O2 CPAP with O2 12/18/20: Monitor O2 NH Wednesday Continue to work on stamina (1) COVID-19 (2) RICHY on CPAP (3) Obesity (4) Diabetes (5) Hypertension (6) Edema (7) Neuropathy (8) Anemia (9) Advanced age DEANNA BOO DO Dec 18, 2020 08:45
--- NOTE | 2020-12-18 11:09 | Physical Therapy Daily Note ---
PT Daily Note-Current Subjective Pt reports feeling well today and is ready to get up and walk. Pain Numeric Pain Scale: 0-No Pain Mental Status Patient Orientation: Person, Place, Time, Situation Attachments: Oxygen Transfers SCALE: Activities may be completed with or without assistive devices. 1-Ndhpkrzcea-afckyxf completes the activity by him/herself with no assistance from a helper. 5-Set-up or Clean-up Assistance-helper sets up or cleans up; patient completes activity. [place] assists only prior to or following the activity. 4-Supervision or Touching Assistance-helper provides verbal cues and/or touching/steadying and/or contact guard assistance as patient completes activity. Assistance may be provided throughout the activity or intermittently. 3-Partial/Moderate Assistance-helper does LESS THAN HALF the effort. [place] lifts, holds or supports trunk or limbs, but provides less than half the effort. 2-Substantial/Maximal Assistance-helper does MORE THAN HALF the effort. [place] lifts or holds trunk or limbs and provides more than half the effort. 7-Jxuovoqfs-muisfd does ALL the effort. Patient does none of the effort to complete the activity. Or, the assistance of 2 or more helpers is required for the patient to complete the activity. If activity was not attempted, code reason: 7-Patient Refused. 9-Not Applicable-not attempted and the patient did not perform the activity before the current illness, exacerbation or injury. 10-Not Attempted due to Environmental Limitations-(lack of equipment, weather restraints, etc.). 88-Not Attempted due to Medical Conditions or Safety Concerns. Sit to Stand (QC): 1 Chair/Hlc-py-Opqvi Xfer(QC): 1 Weight Bearing Full Weight Bearing Full Weight Bearing Gait Training Does the Patient Walk?: No and Walking Goal IS indicated Distance: 3ft Gait Persons Needed: 1 Gait Assistive Device: Parallel Bars Total assist for ambulation. Wheelchair Training Does the Pt Use a Wheelchair?: Yes Wheel 50 ft with 2 turns (QC): 4 Type of Wheelchair: Manual Exercises Seated Therapy Exercises: LE Protocol Seated Reps: 20 Treatments Performed sit to stand with assistance from OT to work on hand placement and managing the WC while performing the transfer. He was able to stand 6x with total assistance, requiring (B) knee steadying, torso stabilization, and cues for hand placement. Assessment Current Status: Good Progress Pt was able to ambulate 3ft within the parallel bars with assist x2. Once he is able to get his knees locked out in standing he is able to stand for up to 30 seconds without assistance. He stands up to 3 min with assistance to keep the knees locked and torso upright. PT Short Term Goals Short Term Goals Time Frame: Dec 11, 2020 Roll Left & Right: 4 Sit to lyin Lying to sitting on side of be: 4 (met) Sit to stand: 3 Chair/mjp-qw-dwvtj transfer: 3 Walk 10 feet: 3 Walk 50 feet with two turns: 3 PT Engineering Drafter Goals Engineering Drafter Goals PT [facility] Goals Time Frame: Jan 01, 2021 Roll Left & Right (QC): 6 Sit to Lying (QC): 6 Lying-Sitting on Side/Bed(QC): 6 Sit to Stand (QC): 6 Chair/Trg-tg-Bklbv Xfer(QC): 6 Toilet Transfer (QC): 6 Car Transfer (QC): 6 Does the Patient Walk: No and Walking Goal IS indicated Walk 10 feet (QC): 6 Walk 50ft with 2 Turns (QC): 6 Walk 150 ft (QC): 6 Walking 10ft on Uneven Surface: 4 1 Step (curb) (QC): 4 4 Steps (QC): 4 12 Steps (QC): 4 Picking up an Object (QC): 5 Does the Pt use WC or Scooter?: No Wheel 50 feet with 2 turns (QC: 9 Wheel 150 feet: 9 PT Plan Treatment/Plan Treatment Plan: Continue Plan of Care Treatment Plan: Bed Mobility, Education, Functional Activity Erick, Functional Strength, Group Therapy, Gait, Safety, Therapeutic Exercise, Transfers Treatment Duration: Jan 01, 2021 Frequency: At least 5 of 7 days/Wk (IRF) Estimated Hrs Per Day: Other (see notation) Patient and/or Family Agrees t: Yes Time/GCodes Time In: 1002 Time Out: 1102 Total Billed Treatment Time: 60 Total Billed Treatment 1, ex 15, wc 15, fax2 30 PATEL RIVERA PT Dec 18, 2020 11:09
--- NOTE | 2020-12-18 12:18 | Occupational Ther Daily Note ---
OT Current Status-Daily Note Subjective No pain reported. Mental Status/Objective Patient Orientation: Person, Place ADL-Treatment Therapy Code Descriptions/Definitions Functional [place] Measure: 0=Not Assessed/NA 4=Minimal Assistance 1=Total Assistance 5=Supervision or Setup 2=Maximal Assistance 6=Modified [place] 3=Moderate Assistance 7=Complete IndependenceSCALE: Activities may be completed with or without assistive devices. 5-Cqjmeunyhh-rwwggpz completes the activity by him/herself with no assistance from a helper. 5-Set-up or Clean-up Assistance-helper sets up or cleans up; patient completes activity. [place] assists only prior to or following the activity. 4-Supervision or Touching Assistance-helper provides verbal cues and/or touching/steadying and/or contact guard assistance as patient completes activity. Assistance may be provided throughout the activity or intermittently. 3-Partial/Moderate Assistance-helper does LESS THAN HALF the effort. [place] lifts, holds or supports trunk or limbs, but provides less than half the effort. 2-Substantial/Maximal Assistance-helper does MORE THAN HALF the effort. [place] lifts or holds trunk or limbs and provides more than half the effort. 7-Mwdisiois-zvzyxh does ALL the effort. Patient does none of the effort to complete the activity. Or, the assistance of 2 or more helpers is required for the patient to complete the activity. If activity was not attempted, code reason: 7-Patient Refused. 9-Not Applicable-not attempted and the patient did not perform the activity before the current illness, exacerbation or injury. 10-Not Attempted due to Environmental Limitations-(lack of equipment, weather restraints, etc.). 88-Not Attempted due to Medical Conditions or Safety Concerns. Upper Body Dressing (QC): 3 (Pt. had difficulty finding the hole for his head this a.m. OT had to assist him.) Lower Body Dressing (QC): 1 (Pt. requires assistance to thread bilateral LE into pants, but is able to pull them on up to thighs. OT uses sit-stand lift and dons over hips.) On/Off Footwear: 3 Other Treatment OT assisted pt. to don clothing. PT came into room and assisted with co- treatment due to need of skilled assistance x 2 for low endurance and strength. Pt. was transferred into wheelchair using sit-stand lift, and then pt. was able to self propel to therapy gym with increased time and multiple rest breaks. Once in gym, pt. worked on standing at parallel bars. Requires mod/max x 2, with knees blocked. OT worked on encouraging pt. to tuck his bottom, bring his shoulders back, and move his hands back while PT blocked knees and facilitated foot placement. At last stand, pt. able to take 3 small steps with max assist and wheelchair follow. Pt. unable to stand more than 1 minute at a time, and reports that leaning forward onto his arms feels better than being completely upright. Pt. up in gym with PT when OT left session. Education OT Patient Education: Correct positioning, Exercise program, Modified ADL techniques, Progress toward Goal/Update tx plan, Purpose of tx/functional activities, Reviewed precautions, Rehab process, Transfer techniques Teaching Recipient: Patient Teaching Methods: Demonstration, Discussion Response to Teaching: Verbalize Understanding, Return Demonstration OT Short Term Goals Short Term Goals Time Frame: Dec 11, 2020 Eatin Oral hygiene: 88 Toileting hygiene: 2 Shower/bathe self: 3 Upper body dressin Lower body dressin Putting on/taking off footwear: 6 OT [facility] Goals Roller Picker Goals Time Frame: Dec 25, 2020 Eating (QC): 6 Oral Hygiene (QC): 6 Toileting Hygiene (QC): 5 Shower/Bathe Self (QC): 5 Upper Body Dressing (QC): 6 Lower Body Dressing (QC): 4 On/Off Footwear (QC): 6 Additional Goals: 1-Demonstrate ADL Tasks, 2-Verbalize Understanding, 3-ImproveStrength/Erick 1=Demonstrate adherence to instructed precautions during ADL tasks. 2=Patient will verbalize/demonstrate understanding of assistive devices/modifications for ADL. 3=Patient will improve strength/tolerance for activity to enable patient to perform ADL's. OT Education/Plan Problem List/Assessment Assessment: Decreased Activ Tolerance, Decreased UE Strength, Dependent Transfers, Impaired Funct Balance, Impaired I ADL's, Impaired Self-Care Skills, Restricted Funct UE ROM Discharge Recommendations Plan/Recommendations: Continue POC Therapy Discharge Recommendati: Post Acute OT Treatment Plan/Plan of Care Treatment,Training & Education: Yes Patient would benefit from OT for education, treatment and training to promote independence in ADL's, mobility, safety and/or upper extremity function for ADL's. Plan of Care: ADL Retraining, Caregiver Training, Concurrent Therapy, Functional Mobility, Group Exercise/Act as Ind, UE Funct Exercise/Act, UE Neuromus Re-Ed/Coord, W/C Management Training Treatment Duration: Dec 25, 2020 Frequency: Modified Program (IRF) Estimated Hrs Per Day: 1 hour per day Agreement: Yes Rehab Potential: Fair Time/GCodes Start Time: 10:00 Stop Time: 10:45 Total Time Billed (hr/min): 45 Billed Treatment Time 1, ADL x 15minutes, FA x 30minutes Co-treatment with PT. Please see above note for designated roles. CAMILA SINCLAIR OT Dec 18, 2020 12:18
[2020-12-18] MEDS: UMECLIDINIUM BROMIDE (INCRUSE ELLIPTA) 7'S IH SCH (12:35)
[2020-12-18] MEDS: ADVAIR HFA 115/21 MCG INHALER 8 GM IH SCH ×2 (12:35→22:27)
--- NOTE | 2020-12-18 13:46 | Physical Therapy Daily Note ---
PT Daily Note-Current Subjective Only c/o fatigue on arrival. Mental Status Patient Orientation: Person, Place, Time, Situation Attachments: Oxygen Transfers SCALE: Activities may be completed with or without assistive devices. 5-Rarbovgryx-iiubsnt completes the activity by him/herself with no assistance from a helper. 5-Set-up or Clean-up Assistance-helper sets up or cleans up; patient completes activity. [place] assists only prior to or following the activity. 4-Supervision or Touching Assistance-helper provides verbal cues and/or touching/steadying and/or contact guard assistance as patient completes activity. Assistance may be provided throughout the activity or intermittently. 3-Partial/Moderate Assistance-helper does LESS THAN HALF the effort. [place] lifts, holds or supports trunk or limbs, but provides less than half the effort. 2-Substantial/Maximal Assistance-helper does MORE THAN HALF the effort. [place] lifts or holds trunk or limbs and provides more than half the effort. 2-Hjwgmotva-fcedeu does ALL the effort. Patient does none of the effort to complete the activity. Or, the assistance of 2 or more helpers is required for the patient to complete the activity. If activity was not attempted, code reason: 7-Patient Refused. 9-Not Applicable-not attempted and the patient did not perform the activity before the current illness, exacerbation or injury. 10-Not Attempted due to Environmental Limitations-(lack of equipment, weather restraints, etc.). 88-Not Attempted due to Medical Conditions or Safety Concerns. Sit to Stand (QC): 1 Chair/Lyn-ja-[place] Xfer(QC): 1 Toilet Transfer (QC): 1 Weight Bearing Full Weight Bearing Full Weight Bearing Gait Training Does the Patient Walk?: No and Walking Goal IS indicated Gait Assistive Device: Parallel Bars Pt was able to perform sit to stand 4x with total assist. Once in standing, he was able to stand for 2 min each time. Wheelchair Training Does the Pt Use a Wheelchair?: Yes Wheel 50 ft with 2 turns (QC): 4 Exercises Seated Therapy Exercises: LE Protocol Seated Reps: 15 Assessment Current Status: Good Progress Able to perform sit to stand with one person assisting. Continues to require total assist to get to standing and mod assist once in standing. PT Short Term Goals Short Term Goals Time Frame: Dec 11, 2020 Roll Left & Right: 4 Sit to lyin Lying to sitting on side of be: 4 (met) Sit to stand: 3 Chair/qeu-ki-kftqc transfer: 3 Walk 10 feet: 3 Walk 50 feet with two turns: 3 PT Senior Living Goals Supervisor Paper Testing Goals PT Senior Living Goals Time Frame: Jan 01, 2021 Roll Left & Right (QC): 6 Sit to Lying (QC): 6 Lying-Sitting on Side/Bed(QC): 6 Sit to Stand (QC): 6 Chair/Miq-qj-Ixols Xfer(QC): 6 Toilet Transfer (QC): 6 Car Transfer (QC): 6 Does the Patient Walk: No and Walking Goal IS indicated Walk 10 feet (QC): 6 Walk 50ft with 2 Turns (QC): 6 Walk 150 ft (QC): 6 Walking 10ft on Uneven Surface: 4 1 Step (curb) (QC): 4 4 Steps (QC): 4 12 Steps (QC): 4 Picking up an Object (QC): 5 Does the Pt use WC or Scooter?: No Wheel 50 feet with 2 turns (QC: 9 Wheel 150 feet: 9 PT Plan Treatment/Plan Treatment Plan: Continue Plan of Care Treatment Plan: Bed Mobility, Education, Functional Activity Erick, Functional Strength, Group Therapy, Gait, Safety, Therapeutic Exercise, Transfers Treatment Duration: Jan 01, 2021 Frequency: At least 5 of 7 days/Wk (IRF) Estimated Hrs Per Day: Other (see notation) Patient and/or Family Agrees t: Yes Time/GCodes Time In: 1305 Time Out: 1335 Total Billed Treatment Time: 30 Total Billed Treatment 1, fa x2 30 PATEL RIVERA PT Dec 18, 2020 13:46
--- NOTE | 2020-12-18 14:31 | Occupational Ther Daily Note ---
OT Current Status-Daily Note Subjective No pain reported. Appearance Pt. up in wheelchair in therapy gym after PT. Agrees to work with OT. Mental Status/Objective Patient Orientation: Person, Place, Time, Situation Attachments: Oxygen ADL-Treatment Therapy Code Descriptions/Definitions Functional [place] Measure: 0=Not Assessed/NA 4=Minimal Assistance 1=Total Assistance 5=Supervision or Setup 2=Maximal Assistance 6=Modified [place] 3=Moderate Assistance 7=Complete IndependenceSCALE: Activities may be completed with or without assistive devices. 8-Zucesxzyou-klbsmrt completes the activity by him/herself with no assistance from a helper. 5-Set-up or Clean-up Assistance-helper sets up or cleans up; patient completes activity. [place] assists only prior to or following the activity. 4-Supervision or Touching Assistance-helper provides verbal cues and/or touching/steadying and/or contact guard assistance as patient completes activity. Assistance may be provided throughout the activity or intermittently. 3-Partial/Moderate Assistance-helper does LESS THAN HALF the effort. [place] lifts, holds or supports trunk or limbs, but provides less than half the effort. 2-Substantial/Maximal Assistance-helper does MORE THAN HALF the effort. [place] lifts or holds trunk or limbs and provides more than half the effort. 8-Hxhnhlqza-itunqf does ALL the effort. Patient does none of the effort to complete the activity. Or, the assistance of 2 or more helpers is required for the patient to complete the activity. If activity was not attempted, code reason: 7-Patient Refused. 9-Not Applicable-not attempted and the patient did not perform the activity before the current illness, exacerbation or injury. 10-Not Attempted due to Environmental Limitations-(lack of equipment, weather restraints, etc.). 88-Not Attempted due to Medical Conditions or Safety Concerns. On/Off Footwear: 2 (Pt. practiced doffing/donning shoes and socks this date using AE. Pt. had increased trouble due to SOA and fine motor strength. Overall, required max assist.) Toileting Hygiene (QC): 1 (Pt. toilets using sit-stand lift. OT cleansed rear yo area after BM while pt. standing in lift.) Toilet Transfer (QC): 1 Education OT Patient Education: Correct positioning, Modified ADL techniques, Progress toward Goal/Update tx plan, Purpose of tx/functional activities, Reviewed precautions, Rehab process, Transfer techniques Teaching Recipient: Patient Teaching Methods: Demonstration, Discussion Response to Teaching: Verbalize Understanding, Return Demonstration OT Short Term Goals Short Term Goals Time Frame: Dec 11, 2020 Eatin Oral hygiene: 88 Toileting hygiene: 2 Shower/bathe self: 3 Upper body dressin Lower body dressin Putting on/taking off footwear: 6 OT Box Lining Machine Operator Goals Box Lining Machine Operator Goals Time Frame: Dec 25, 2020 Eating (QC): 6 Oral Hygiene (QC): 6 Toileting Hygiene (QC): 5 Shower/Bathe Self (QC): 5 Upper Body Dressing (QC): 6 Lower Body Dressing (QC): 4 On/Off Footwear (QC): 6 Additional Goals: 1-Demonstrate ADL Tasks, 2-Verbalize Understanding, 3- ImproveStrength/Erick 1=Demonstrate adherence to instructed precautions during ADL tasks. 2=Patient will verbalize/demonstrate understanding of assistive devices/modifications for ADL. 3=Patient will improve strength/tolerance for activity to enable patient to perform ADL's. OT Education/Plan Problem List/Assessment Assessment: Decreased Activ Tolerance, Dependent Transfers, Impaired Funct Balance, Impaired I ADL's, Impaired Self-Care Skills Discharge Recommendations Plan/Recommendations: Continue POC Therapy Discharge Recommendati: Post Acute OT Equpiment Recommendations-D/C: Hip Kit Treatment Plan/Plan of Care Treatment,Training & Education: Yes Patient would benefit from OT for education, treatment and training to promote independence in ADL's, mobility, safety and/or upper extremity function for A DL's. Plan of Care: ADL Retraining, Caregiver Training, Concurrent Therapy, Functional Mobility, Group Exercise/Act as Ind, UE Funct Exercise/Act, UE Neuromus Re-Ed/Coord, W/C Management Training Treatment Duration: Dec 25, 2020 Frequency: Modified Program (IRF) Estimated Hrs Per Day: 1.5 hours per day Agreement: Yes Rehab Potential: Fair Time/GCodes Start Time: 13:45 Stop Time: 14:15 Total Time Billed (hr/min): 30 Billed Treatment Time 1, ADL x 2 CAMILA SINCLAIR OT Dec 18, 2020 14:31
--- NOTE | 2020-12-18 15:50 | Cardiology Progress Note ---
Subjective Date Seen by Provider: Dec 18, 2020 Time Seen by Provider: 15:50 Subjective/Events-last exam Patient was seen at bedside sitting comfortably, denied any active pain Review of Systems General: No Chills, No Night Sweats, No Fatigue, No Malaise, No Appetite, No Other HEENT: No Head Aches, No Visual Changes, No Eye Pain, No Ear Pain, No Dysphasia, No Sinus Congestion, No Post Nasal Drip, No Sore Throat, No Other Pulmonary: No Dyspnea, No Cough, No Pleuritic Chest Pain, No Other Cardiovascular: No: Chest Pain, Palpitations, Orthopnea, Paroxysmal Noc. Dyspnea, Edema, Lt Headedness, Other Objective-Cardiology Exam Last Set of Vital Signs Vital Signs 12/18/20 12/18/20 06:03 09:00 Temp 35.6 Pulse 70 Resp 16 B/P (MAP) 150/74 (99) Pulse Ox 94 O2 Delivery Nasal Cannula O2 Flow Rate 4.00 Capillary Refill : I&O Intake and Output 12/17/20 23:59 Intake Total 1840 ml Output Total 1975 ml Balance -135 ml Intake Oral 1840 ml Output Urine Total 1975 ml # Voids 3 # Bowel Movements 2 General: Alert, Oriented X3, Cooperative HEENT: Atraumatic, PERRLA Neck: Supple, No JVD, No Thyromegaly Lungs: Clear to Auscultation, Normal Air Movement Heart: Normal S1, Normal S2, No Murmurs, Other (irregularly irregular) Abdomen: Normal Bowel Sounds, Soft, No Tenderness, No Hepatosplenomegaly, No Masses Extremities: No Clubbing, No Cyanosis Skin: No Rashes, No Significant Lesion Neuro: Cranial Nerves 3-12 NL Psych/Mental Status: Mental Status NL, Mood NL A/P-Cardiology Admission Diagnosis Afib HTN HLP DM Assessment/Plan Atrial fibrillation with controlled ventricular rate, maintained on Eliquis, continue to monitor. Hypertension, poor control, add losartan 25 mg daily and monitor tolerance and response HLP, maintained on statin, monitored as outpatient DM, management per Dr. Dawkins Critical illness myopathy, COVID-19, continue PT/OT RICHY, treated with CPAP, managed by JOSE MARIA Mohan MD Dec 18, 2020 3:50 pm
[2020-12-18] MEDS: LOSARTAN 25 MG (COZAAR) TAB PO SCH (16:32)
[2020-12-18 17:20] VITALS: BP 113/75
[2020-12-18] MEDS: MELATONIN 3 MG TABLET PO SCH (21:11)
[2020-12-18] MEDS: MIRTAZAPINE 15 MG (REMERON) TAB PO SCH (21:11)
[2020-12-19] MEDS: inSUlin ASPART (NovoLOG) 1 UNIT/0.01 ML (CHARGE PER UNIT) SC SCH ×4 (05:15→22:15)
[2020-12-19] MEDS: CATHETER FLUSH 10 ML SYR IV SCH ×3 (05:37→22:18)
[2020-12-19 06:09] VITALS: BP 139/79
[2020-12-19] MEDS: LOSARTAN 25 MG (COZAAR) TAB PO SCH (07:48)
[2020-12-19] MEDS: VITAMIN D3 25 MCG (1,000 UNITS) TABLET PO SCH (07:48)
[2020-12-19] MEDS: meTOprolol TARTRATE 50 MG (LOPRESSOR) TAB PO SCH ×2 (07:48→22:17)
[2020-12-19] MEDS: APIXABAN 5 MG (ELIQUIS) TABLET PO SCH ×2 (07:48→22:17)
[2020-12-19] MEDS: ASPIRIN 81 MG CHEW (CHILDREN'S ASA) PO SCH (07:48)
[2020-12-19] MEDS: TAMSULOSIN 0.4 MG (FLOMAX) CAP PO SCH (07:48)
[2020-12-19] MEDS: ACETAMINOPHEN 325 MG TABLET PO SCH ×3 (07:48→22:16)
[2020-12-19] MEDS: ASCORBIC ACID (VIT C) 500 MG TABLET PO SCH ×2 (07:49→16:35)
[2020-12-19] MEDS: GABAPENTIN 100 MG (NEURONTIN) CAP PO SCH ×3 (07:49→22:16)
[2020-12-19] MEDS: predniSONE 10 MG TAB PO SCH (07:49)
[2020-12-19] MEDS: PANTOPRAZOLE 40 MG (PROTONIX) TAB PO SCH (07:49)
[2020-12-19] MEDS: ADVAIR HFA 115/21 MCG INHALER 8 GM IH SCH ×2 (07:49→21:42)
[2020-12-19] MEDS: UMECLIDINIUM BROMIDE (INCRUSE ELLIPTA) 7'S IH SCH (07:50)
[2020-12-19] MEDS: SALIVA STIMULANT MOUTH SPRAY (BIOTENE) 1.5 OZ MM SCH ×4 (07:50→21:43)
[2020-12-19] MEDS: FLUTICASONE NASAL SPRAY (FLONASE) 16 GM BTL NS SCH (07:50)
[2020-12-19] MEDS: ZINC OXIDE 16% OINT (BUTT PASTE) 57 GM TUBE TOP PRN (07:50)
[2020-12-19] MEDS: FINASTERIDE (PROSCAR) 5 MG TAB PO SCH (07:51)
[2020-12-19] MEDS: SENNA W/DOCUSATE (SENOKOT S) TABLET PO SCH ×2 (07:51→22:15)
[2020-12-19] MEDS: polyethylene glycoL POWDER 17 GM (MIRALAX) PACK PO SCH ×2 (07:51→22:15)
[2020-12-19] MEDS: DOCUSATE SODIUM 100 MG (COLACE) CAP PO SCH ×2 (07:52→22:15)
[2020-12-19] MEDS: SALINE NASAL SPRAY (OCEAN) 45 ML BTL NS SCH ×3 (07:52→22:15)
--- NOTE | 2020-12-19 10:04 | Physical Therapy Daily Note ---
PT Daily Note-Current Subjective Pt sitting in recliner finishing Sponge bath w/Ot assist upon arrival. Pt agrees to PT/OT co-treat for partial tx. Pain Location: No Pain Reported Mental Status Patient Orientation: Person, Place, Situation Attachments: Oxygen (4L during tx) Transfers SCALE: Activities may be completed with or without assistive devices. 9-Fbcktcymfb-cxprslw completes the activity by him/herself with no assistance from a helper. 5-Set-up or Clean-up Assistance-helper sets up or cleans up; patient completes activity. [place] assists only prior to or following the activity. 4-Supervision or Touching Assistance-helper provides verbal cues and/or touching/steadying and/or contact guard assistance as patient completes activity. Assistance may be provided throughout the activity or intermittently. 3-Partial/Moderate Assistance-helper does LESS THAN HALF the effort. [place] lifts, holds or supports trunk or limbs, but provides less than half the effort. 2-Substantial/Maximal Assistance-helper does MORE THAN HALF the effort. [place] lifts or holds trunk or limbs and provides more than half the effort. 3-Akwyqmkmr-vxksxt does ALL the effort. Patient does none of the effort to complete the activity. Or, the assistance of 2 or more helpers is required for the patient to complete the activity. If activity was not attempted, code reason: 7-Patient Refused. 9-Not Applicable-not attempted and the patient did not perform the activity before the current illness, exacerbation or injury. 10-Not Attempted due to Environmental Limitations-(lack of equipment, weather restraints, etc.). 88-Not Attempted due to Medical Conditions or Safety Concerns. Sit to Stand (QC): 2 Weight Bearing Full Weight Bearing Full Weight Bearing Gait Training Does the Patient Walk?: Yes Distance: 8' x2 Walk 10 feet (QC): 3 Gait Persons Needed: 2 Gait Assistive Device: Parallel Bars Wheelchair Training Does the Pt Use a Wheelchair?: Yes Wheel 50 ft with 2 turns (QC): 3 Type of Wheelchair: Manual Exercises Seated Therapy Exercises: Sit to stand Seated Reps: 5 Treatments 900-1000: After ADLs, OT/PT complete co-treatment due to weakness and need of skilled assist x 2. Pt. stands at parallel bars x 5 times with max x 2, but is able to ambulate 3 times, approximately 10 feet with max assist. On the other two stands he is able to weight shift and lift arms alternatively. OT facilitates hand placement and posture in stance while PT blocks knees and works on foot placement. After standing/walking at //bars, pt propels WCH back to room and TF via Sit to Stand lift back to recliner to rest. All needs met, call light in hand. [id number]: Reviewed written HEP issued this morning. Pt resting in recliner at end of tx with all needs met, call light in hand. Assessment Current Status: Fair Progress Pt is still requiring assistance of 2 clinicians but pt is assisting more than previous tx. Pt still just wants to use lift to transfer so clinicians again advise benefits of transferring self w/o AE. PT Short Term Goals Short Term Goals Time Frame: Dec 11, 2020 Roll Left & Right: 4 Sit to lyin Lying to sitting on side of be: 4 (met) Sit to stand: 3 Chair/yem-hi-aimzo transfer: 3 Walk 10 feet: 3 Walk 50 feet with two turns: 3 PT Automatic Hemmer Goals Automatic Hemmer Goals PT [facility] Goals Time Frame: Jan 01, 2021 Roll Left & Right (QC): 6 Sit to Lying (QC): 6 Lying-Sitting on Side/Bed(QC): 6 Sit to Stand (QC): 6 Chair/Fxt-gr-Bugkk Xfer(QC): 6 Toilet Transfer (QC): 6 Car Transfer (QC): 6 Does the Patient Walk: No and Walking Goal IS indicated Walk 10 feet (QC): 6 Walk 50ft with 2 Turns (QC): 6 Walk 150 ft (QC): 6 Walking 10ft on Uneven Surface: 4 1 Step (curb) (QC): 4 4 Steps (QC): 4 12 Steps (QC): 4 Picking up an Object (QC): 5 Does the Pt use WC or Scooter?: No Wheel 50 feet with 2 turns (QC: 9 Wheel 150 feet: 9 PT Plan Problem List Problem List: Activity Tolerance, Functional Strength, Gait, Transfer Treatment/Plan Treatment Plan: Continue Plan of Care Treatment Plan: Bed Mobility, Education, Functional Activity Erick, Functional Strength, Group Therapy, Gait, Safety, Therapeutic Exercise, Transfers Treatment Duration: Jan 01, 2021 Frequency: At least 5 of 7 days/Wk (IRF) Estimated Hrs Per Day: Other (see notation) Patient and/or Family Agrees t: Yes Safety Risks/Education Patient Education: Gait Training, Transfer Techniques, Issued Written HEP, Correct Positioning, W/C Management, Safety Issues Teaching Recipient: Patient Teaching Methods: Discussion Response to Teaching: Reinforcement Needed Time/GCodes Time In: 900 Time Out: 1315 Total Billed Treatment Time: 75 Total Billed Treatment 900-1000: 1, WCH (15m), FA x2 (30m) & GT (15m) Co-treat w/OT 45m (449-255) [id number]: 1, FA (15m) AMADOU CASTILLO SEISMOGRAPH OBSERVER Dec 19, 2020 10:04
--- NOTE | 2020-12-19 10:24 | Cardiology Progress Note ---
Subjective Date Seen by Provider: Dec 19, 2020 Time Seen by Provider: 10:23 Subjective/Events-last exam patient was seen at bedside sitting down comfortably, denied any active pain Review of Systems General: No Chills, No Night Sweats, No Fatigue, No Malaise, No Appetite, No Other HEENT: No Head Aches, No Visual Changes, No Eye Pain, No Ear Pain, No Dysphasia, No Sinus Congestion, No Post Nasal Drip, No Sore Throat, No Other Pulmonary: No Dyspnea, No Cough, No Pleuritic Chest Pain, No Other Cardiovascular: No: Chest Pain, Palpitations, Orthopnea, Paroxysmal Noc. Dyspnea, Edema, Lt Headedness, Other Objective-Cardiology Exam Last Set of Vital Signs Vital Signs 12/19/20 12/19/20 06:09 09:08 Temp 35.5 Pulse 63 Resp 16 B/P (MAP) 139/79 (99) Pulse Ox 97 O2 Delivery Nasal Cannula O2 Flow Rate 4.00 Capillary Refill : I&O Intake and Output 12/19/20 00:00 Intake Total 1690 ml Output Total 2050 ml Balance -360 ml Intake Oral 1690 ml Output Urine Total 2050 ml # Voids 3 # Bowel Movements 2 General: Alert, Oriented X3, Cooperative HEENT: Atraumatic, PERRLA Neck: Supple, No JVD, No Thyromegaly Lungs: Clear to Auscultation, Normal Air Movement Heart: Normal S1, Normal S2, No Murmurs, Other (irregularly irregular) Abdomen: Normal Bowel Sounds, Soft, No Tenderness, No Hepatosplenomegaly, No Masses Extremities: No Clubbing, No Cyanosis Skin: No Rashes, No Significant Lesion Neuro: Cranial Nerves 3-12 NL Psych/Mental Status: Mental Status NL, Mood NL A/P-Cardiology Admission Diagnosis Afib HTN HLP DM Assessment/Plan Atrial fibrillation with controlled ventricular rate, maintained on Eliquis, continue to monitor. Hypertension, better controlled today. 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 Dawkins Critical illness myopathy, COVID-19, continue PT/OT RICHY, treated with CPAP, managed by JOSE MARIA Mohan MD Dec 19, 2020 10:24
--- NOTE | 2020-12-19 12:03 | PM&R Progress Note ---
Subjective HPI/CC On Admission Date Seen by Provider: Dec 19, 2020 Time Seen by Provider: 12:30 Subjective/Events-last exam 12/19/20: No major issues Bowels are moving [facility] placement on Wednesday12/18/20: [place] [facility] Family training did not go well Son was there but did not engage Insists on going home but that would not be a possibility Placing [place]rill on buttock 12/17/20: Family training today at 10:00 Still has a stage 2 buttock decubitus ulcer Overall feels like he is doing much better Son at bedside when I rounded later today and he was evaluating his progress 12/16/20: Pt doing pretty well Bowels moved today Left midline is functioning Blood sugar 147 Stage 2 decubitus ulcer on the buttock Working really hard to stand 12/15/20: Overall doing well No issues BM+ No falls 12/14/20: Doing well BM+ Dyspnea still continues No pain 12/13/20: Patient more alert today and energized No pain reported Oxycodone helps the foot pain Participating with therapy 12/12/20: Pt doing a lot better Having a lot of pain, takes Oxycodone for his foot and leg pain Bowels are moving Sleeping better Pt very well could require a [place] [facility] since he lives alone and is just not progressing well 12/11/20: No major issues Pretty much has plateaued and not made much progress with ambulation Epistaxis of the left nostril Nasal sprays will be continued Re-check and check with insurance coverage but he very well may need to be in a [place] [facility] 12/10/20: Pt doing pretty well Slept on and off last night Remains on 4 liters of O2 Swelling in his feel is pretty minimal Did not use his BiPAP last night and that likely is the cause of not sleeping well 12/09/20: Pt slept pretty well Bowels are moving PLTs are 97, 000 Normal WBC down from when he first arrived Denies any significant issues Trying to get strong enough to walk 12/08/20: Slept well last night Remeron and Melatonin has helped him a lot Sinus tachy last night BM 12/06/20 so laxatives given No other issues 12/07/20: Slept better Yonker provided for phlem HR 60 Appreciate Cardiology 4L/min O2 BM 12/06/20 12/06/20: HR 122 Cardiology consulted Sugar 54 so decreasing insulin BM++ No pain reported No sleeping well so added hypnotics of Melatonin and Remeron 12/05/20: Patient doing well Worn out from fatigue Sugars are ok No pain reported Tachycardic so consulting Dr Carranza Midline was accidently pulled out so need a new one placed Checked meds and labs Review of Systems General: Fatigue, Malaise Pulmonary: Dyspnea Neurological: Weakness, Incoordination Objective Exam Vital Signs Vital Signs Date Time Temp Pulse Resp B/P (MAP) Pulse Ox O2 Delivery O2 Flow Rate FiO2 12/19/20 20:00 96 Nasal Cannula 4.00 12/19/20 17:57 36.2 100 18 127/74 (91) Capillary Refill : General Appearance: No Apparent Distress, WD/WN, Anxious, Chronically ill, Obese HEENT: PERRL/EOMI, Normal ENT Inspection, Pharynx Normal Neck: Full Range of Motion, Normal Inspection, Non Tender, Supple, Carotid Bruit Respiratory: Chest Non Tender, No Accessory Muscle Use, No Respiratory Distress, Crackles, Decreased Breath Sounds Cardiovascular: Regular Rate, Rhythm, No Gallop, No JVD, No Murmur, Normal Peripheral Pulses Gastrointestinal: Normal Bowel Sounds, No Organomegaly, No Pulsatile Mass, Non Tender, Soft Back: Normal Inspection, No CVA Tenderness, No Vertebral Tenderness Extremity: Normal Capillary Refill, Normal Inspection, Normal Range of Motion, Non Tender, No Calf Tenderness, Pedal Edema Neurologic/Psychiatric: Alert, Oriented x3, No Motor/Sensory Deficits, boiler control technician II- XII Norm as Tested, Depressed Affect, Motor Weakness (generalized all extremiti es 3/5) Skin: Normal Color, Warm/Dry Lymphatic: No Adenopathy Results/Procedures Lab Patient resulted labs reviewed. FIM Transfers Therapy Code Descriptions/Definitions Functional [place] Measure: 0=Not Assessed/NA 4=Minimal Assistance 1=Total Assistance 5=Supervision or Setup 2=Maximal Assistance 6=Modified [place] 3=Moderate Assistance 7=Complete IndependenceSCALE: Activities may be completed with or without assistive devices. 5-Weheuobofs-agwtdnp completes the activity by him/herself with no assistance from a helper. 5-Set-up or Clean-up Assistance-helper sets up or cleans up; patient completes activity. [place] assists only prior to or following the activity. 4-Supervision or Touching Assistance-helper provides verbal cues and/or touching/steadying and/or contact guard assistance as patient completes activity. Assistance may be provided throughout the activity or intermittently. 3-Partial/Moderate Assistance-helper does LESS THAN HALF the effort. [place] lifts, holds or supports trunk or limbs, but provides less than half the effort. 2-Substantial/Maximal Assistance-helper does MORE THAN HALF the effort. [place] lifts or holds trunk or limbs and provides more than half the effort. 7-Hhmcvyaqi-vbcbjy does ALL the effort. Patient does none of the effort to complete the activity. Or, the assistance of 2 or more helpers is required for the patient to complete the activity. If activity was not attempted, code reason: 7-Patient Refused. 9-Not Applicable-not attempted and the patient did not perform the activity before the current illness, exacerbation or injury. 10-Not Attempted due to Environmental Limitations-(lack of equipment, weather restraints, etc.). 88-Not Attempted due to Medical Conditions or Safety Concerns. Roll Left to Right (QC): 3 Sit to Lying (QC): 2 Sit to Stand (QC): 1 Chair/Abu-ln-Axqzb Xfer(QC): 1 Car Transfer (QC): 88 (unsafe to attempt due to heavy need for assist. ) Gait Training Does the Patient Walk?: Yes Distance: 8' x2 Walk 10 feet (QC): 3 Walk 50 ft with 2 Turns(QC): 88 Walk 150 ft (QC): 88 Walking 10ft/uneven surface-QC: 88 Gait Persons Needed: 1 Gait Assistive Device: Parallel Bars Wheelchair Training Does the Pt Use a Wheelchair?: Yes Wheel 50 ft with 2 turns (QC): 4 Wheel 150 ft (QC): 4 Stair Training 1 Step (curb) (QC): 88 4 Steps (QC): 88 12 Steps (QC): 88 Balance Picking up an Object (QC): 88 ADL-Treatment Eating (QC): 6 Oral Hygiene (QC): 7 Bathing Location: L Arm, R Arm, L Upper Leg, R Upper Leg, Chest, Abdomen, Perineal Area Shower/Bathe Self (QC): 3 (Min assist seated on shower chair. Pt. encouraged in new technique to cleanse yo area. Uses LH sponge for LE.) Upper Body Dressing (QC): 3 (Pt. had difficulty finding the hole for his head this a.m. OT had to assist him.) Lower Body Dressing (QC): 1 (Pt. requires assistance to thread bilateral LE into pants, but is able to pull them on up to thighs. OT uses sit-stand lift and dons over hips.) On/Off Footwear (QC): 2 (Pt. practiced doffing/donning shoes and socks this date using AE. Pt. had increased trouble due to SOA and fine motor strength. Overall, required max assist.) Toileting Hygiene (QC): 1 (Pt. toilets using sit-stand lift. OT cleansed rear yo area after BM while pt. standing in lift.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 Obesity DM Neuropathy Anemia O2 dependence Plan: IRF protocol Monitor O2 O2 supplement 12/05/20: O2 maintained IRF protocol Cardiology consultation appreciated Midline replacement 12/06/20: Cardiology consult appreciated Decrease insulin Midline Monitor closely 12/07/20: Monitor closely O2 wean Increase acitivity Maintain Remeron and Melatonin 12/08/20: Monitor closely Check labs in am Monitor tachycardia Remeron and Melatonin 12/09/20: Labs normal Improved strength Weaning O2 Monitor insomnia Increase insulin 12/10/20: Monitor O2 Increase strength Severe myopathy of legs 12/11/20: Difficult to progress Continue therapy May need NHP 12/12/20: Pain control with Oxycodone Monitor bowels Monitor O2 12/13/20: Monitor pain Wean O2 CPAP mask seems to be working better 12/14/20: Improved status Stood up today with help O2 12/15/20: Wean O2 Monitor ambulation CPAP at night 12/16/20: Monitor progress Decubitus ulcer management Monitor BP 12/17/20: Family education/training today Monitor O2 CPAP with O2 12/18/20: Monitor O2 NH Wednesday Continue to work on stamina 12/19/20: Monitor O2 CPAP (1) COVID-19 (2) RICHY on CPAP (3) Obesity (4) Diabetes (5) Hypertension (6) Edema (7) Neuropathy (8) Anemia (9) Advanced age DEANNA BOO DO Dec 19, 2020 12:03
--- NOTE | 2020-12-19 14:50 | Occupational Ther Daily Note ---
OT Current Status-Daily Note Subjective No pain reported. Mental Status/Objective Patient Orientation: Person, Place ADL-Treatment Therapy Code Descriptions/Definitions Functional Jack Measure: 0=Not Assessed/NA 4=Minimal Assistance 1=Total Assistance 5=Supervision or Setup 2=Maximal Assistance 6=Modified Jack 3=Moderate Assistance 7=Complete IndependenceSCALE: Activities may be completed with or without assistive devices. 2-Ouxgvibgzh-jmvdopm completes the activity by him/herself with no assistance from a helper. 5-Set-up or Clean-up Assistance-helper sets up or cleans up; patient completes activity. [place] assists only prior to or following the activity. 4-Supervision or Touching Assistance-helper provides verbal cues and/or touching/steadying and/or contact guard assistance as patient completes activity. Assistance may be provided throughout the activity or intermittently. 3-Partial/Moderate Assistance-helper does LESS THAN HALF the effort. [place] lifts, holds or supports trunk or limbs, but provides less than half the effort. 2-Substantial/Maximal Assistance-helper does MORE THAN HALF the effort. [place] lifts or holds trunk or limbs and provides more than half the effort. 7-Fljajyibe-oozjnj does ALL the effort. Patient does none of the effort to complete the activity. Or, the assistance of 2 or more helpers is required for the patient to complete the activity. If activity was not attempted, code reason: 7-Patient Refused. 9-Not Applicable-not attempted and the patient did not perform the activity before the current illness, exacerbation or injury. 10-Not Attempted due to Environmental Limitations-(lack of equipment, weather restraints, etc.). 88-Not Attempted due to Medical Conditions or Safety Concerns. Shower/Bathe Self (QC): 1 (Max x 2 assist for standing while one person cl [facility] area.) Upper Body Dressing (QC): 5 Lower Body Dressing (QC): 1 (Assist x 2) On/Off Footwear: 3 (Min assist for shoes) Other Treatment Pt. requests to sponge bathe up in chair vs shower. After ADLs, OT/PT complete co-treatment due to weakness and need of skilled assist x 2. Pt. stands at parallel bars x 5 times with max x 2, but is able to ambulate 3 times, approximately 10 feet with max assist. On the other two stands he is able to weight shift and lift arms alternatively. OT facilitates hand placement and posture in stance while PT blocks knees and works on foot placement. All needs met. Education OT Patient Education: Correct positioning, Exercise program, Modified ADL techniques, Progress toward Goal/Update tx plan, Purpose of tx/functional act ivities, Reviewed precautions, Rehab process, Transfer techniques Teaching Recipient: Patient Teaching Methods: Demonstration, Discussion Response to Teaching: Verbalize Understanding, Return Demonstration OT Short Term Goals Short Term Goals Time Frame: Dec 11, 2020 Eatin Oral hygiene: 88 Toileting hygiene: 2 Shower/bathe self: 3 Upper body dressin Lower body dressin Putting on/taking off footwear: 6 OT Wool Scourer Goals Wool Scourer Goals Time Frame: Dec 25, 2020 Eating (QC): 6 Oral Hygiene (QC): 6 Toileting Hygiene (QC): 5 Shower/Bathe Self (QC): 5 Upper Body Dressing (QC): 6 Lower Body Dressing (QC): 4 On/Off Footwear (QC): 6 Additional Goals: 1-Demonstrate ADL Tasks, 2-Verbalize Understanding, 3- ImproveStrength/Erick 1=Demonstrate adherence to instructed precautions during ADL tasks. 2=Patient will verbalize/demonstrate understanding of assistive devices/modifications for ADL. 3=Patient will improve strength/tolerance for activity to enable patient to perform ADL's. OT Education/Plan Problem List/Assessment Assessment: Decreased Activ Tolerance, Decreased UE Strength, Impaired Funct Balance, Impaired I ADL's, Impaired Self-Care Skills Discharge Recommendations Plan/Recommendations: Continue POC Treatment Plan/Plan of Care Treatment,Training & Education: Yes Patient would benefit from OT for education, treatment and training to promote independence in ADL's, mobility, safety and/or upper extremity function for AD L's. Plan of Care: ADL Retraining, Caregiver Training, Concurrent Therapy, Functional Mobility, Group Exercise/Act as Ind, UE Funct Exercise/Act, UE Neuromus Re-Ed/Coord, W/C Management Training Treatment Duration: Dec 25, 2020 Frequency: Modified Program (IRF) Estimated Hrs Per Day: 1.5 hours per day Agreement: Yes Rehab Potential: Fair Time/GCodes Start Time: 08:30 Stop Time: 09:45 Total Time Billed (hr/min): 75 Billed Treatment Time 6058-6462 1, ADL x 30minutes [id number] FA x 45minutes. Co-treatment with PT. Please see above note for designated roles. CAMILA SINCLAIR OT Dec 19, 2020 14:50
[2020-12-19 17:57] VITALS: BP 127/74
[2020-12-19] MEDS: MIRTAZAPINE 15 MG (REMERON) TAB PO SCH (22:17)
[2020-12-19] MEDS: MELATONIN 3 MG TABLET PO SCH (22:18)
[2020-12-20] MEDS: inSUlin ASPART (NovoLOG) 1 UNIT/0.01 ML (CHARGE PER UNIT) SC SCH ×4 (05:47→20:50)
[2020-12-20] MEDS: CATHETER FLUSH 10 ML SYR IV SCH ×3 (05:50→22:23)
[2020-12-20 06:00] VITALS: BP 150/88
[2020-12-20] MEDS: ADVAIR HFA 115/21 MCG INHALER 8 GM IH SCH ×2 (08:29→18:51)
[2020-12-20] MEDS: UMECLIDINIUM BROMIDE (INCRUSE ELLIPTA) 7'S IH SCH (08:29)
--- NOTE | 2020-12-20 09:03 | Physical Therapy Daily Note ---
PT Daily Note-Current Subjective Pt. initially states it is too early to work, he likes to have some time to get things ready. Agreeable to Rx with encouragement. Needs talked through the reality of TRFing without lift if he has goal of home Pain Location: No Pain Reported Appearance dyspnea with activity Mental Status Patient Orientation: Person, Place, Time, Situation Attachments: Oxygen Transfers SCALE: Activities may be completed with or without assistive devices. 2-Gnlikegsun-awamvcc completes the activity by him/herself with no assistance from a helper. 5-Set-up or Clean-up Assistance-helper sets up or cleans up; patient completes activity. [place] assists only prior to or following the activity. 4-Supervision or Touching Assistance-helper provides verbal cues and/or touching/steadying and/or contact guard assistance as patient completes activity. Assistance may be provided throughout the activity or intermittently. 3-Partial/Moderate Assistance-helper does LESS THAN HALF the effort. [place] lifts, holds or supports trunk or limbs, but provides less than half the effort. 2-Substantial/Maximal Assistance-helper does MORE THAN HALF the effort. [place] lifts or holds trunk or limbs and provides more than half the effort. 8-Ilaeummai-fyimrn does ALL the effort. Patient does none of the effort to complete the activity. Or, the assistance of 2 or more helpers is required for the patient to complete the activity. If activity was not attempted, code reason: 7-Patient Refused. 9-Not Applicable-not attempted and the patient did not perform the activity before the current illness, exacerbation or injury. 10-Not Attempted due to Environmental Limitations-(lack of equipment, weather restraints, etc.). 88-Not Attempted due to Medical Conditions or Safety Concerns. Roll Left & Right (QC): 4 Sit to Stand (QC): 3 Chair/Jmb-wp-Ijzzz Xfer(QC): 2 Toilet Transfer (QC): 2 pt. from chair to chair to bed requires use of LIKO lift sit to stand, in ?? bars pt stood x 5 Mod assist 2 , pt. did progress from pulling on // bars to rise to pushing from arms of w/c to rise with much instruction from PT OT co Rx for all. This leaves pt. even more dyspneic and he needs rest breaks. Pt.s shares that he still prefers to TRF and stand with LIKO which he is reminded is not practical for progress Weight Bearing Full Weight Bearing Full Weight Bearing Gait Training pt. took 3-4 small steps in // bars x 2 with w/c close behind and heavy wt bearing on UEs on//bars, again very SOB and needs time to recover, O2 sats in mid 80s and recovers to >90% within 1-2 min Wheelchair Training Does the Pt Use a Wheelchair?: Yes Wheel 50 ft with 2 turns (QC): 6 Wheel 150 ft (QC): 6 Type of Wheelchair: Manual manages brakes and propulsion indep Exercises Seated Therapy Exercises: Ankle pumps, Sit to stand, Long arc quads, Hip flexion, Hip abd/add Seated Reps: 15 seated arm and leg hip/shoulder flexion reciprocating " walking sitting down" exercise coordinated with OT Treatments PT OT co Rx secondary to low level of tolerance and need for 2 skilled clinician s. Assessment Current Status: Fair Progress continues dependent for all mobility PT Short Term Goals Short Term Goals Time Frame: Dec 11, 2020 Roll Left & Right: 4 Sit to lyin Lying to sitting on side of be: 4 (met) Sit to stand: 3 Chair/lmc-lc-wzrkf transfer: 3 Walk 10 feet: 3 Walk 50 feet with two turns: 3 PT Longterm Goals Longterm Goals PT Maintenance Equipment Operator Goals Time Frame: Jan 01, 2021 Roll Left & Right (QC): 6 Sit to Lying (QC): 6 Lying-Sitting on Side/Bed(QC): 6 Sit to Stand (QC): 6 Chair/Vgo-pt-Atqdj Xfer(QC): 6 Toilet Transfer (QC): 6 Car Transfer (QC): 6 Does the Patient Walk: No and Walking Goal IS indicated Walk 10 feet (QC): 6 Walk 50ft with 2 Turns (QC): 6 Walk 150 ft (QC): 6 Walking 10ft on Uneven Surface: 4 1 Step (curb) (QC): 4 4 Steps (QC): 4 12 Steps (QC): 4 Picking up an Object (QC): 5 Does the Pt use WC or Scooter?: No Wheel 50 feet with 2 turns (QC: 9 Wheel 150 feet: 9 PT Plan Treatment/Plan Treatment Plan: Continue Plan of Care Treatment Plan: Bed Mobility, Education, Functional Activity Erick, Functional Strength, Group Therapy, Gait, Safety, Therapeutic Exercise, Transfers Treatment Duration: Jan 01, 2021 Frequency: At least 5 of 7 days/Wk (IRF) Estimated Hrs Per Day: Other (see notation) Patient and/or Family Agrees t: Yes Safety Risks/Education Patient Education: Gait Training, Transfer Techniques, Correct Positioning, Disease Process, Safety Issues Teaching Recipient: Patient Teaching Methods: Demonstration, Discussion Response to Teaching: Verbalize Understanding, Return Demonstration, Reinforcement Needed Time/GCodes Time In: 800 Time Out: 900 Total Billed Treatment Time: 60 Total Billed Treatment 1,EX15m,WC 10m,FA35m co Rx 60 m w SUSANNA JENKINS [employer]S SALESPERSON Dec 20, 2020 09:03
[2020-12-20] MEDS: PANTOPRAZOLE 40 MG (PROTONIX) TAB PO SCH (09:30)
[2020-12-20] MEDS: ASCORBIC ACID (VIT C) 500 MG TABLET PO SCH ×2 (09:30→16:36)
[2020-12-20] MEDS: LOSARTAN 25 MG (COZAAR) TAB PO SCH (09:30)
[2020-12-20] MEDS: TAMSULOSIN 0.4 MG (FLOMAX) CAP PO SCH (09:30)
[2020-12-20] MEDS: VITAMIN D3 25 MCG (1,000 UNITS) TABLET PO SCH (09:30)
[2020-12-20] MEDS: GABAPENTIN 100 MG (NEURONTIN) CAP PO SCH ×3 (09:30→20:47)
[2020-12-20] MEDS: APIXABAN 5 MG (ELIQUIS) TABLET PO SCH ×2 (09:30→20:47)
[2020-12-20] MEDS: FINASTERIDE (PROSCAR) 5 MG TAB PO SCH (09:30)
[2020-12-20] MEDS: meTOprolol TARTRATE 50 MG (LOPRESSOR) TAB PO SCH ×2 (09:31→20:48)
[2020-12-20] MEDS: SENNA W/DOCUSATE (SENOKOT S) TABLET PO SCH ×2 (09:31→20:55)
[2020-12-20] MEDS: DOCUSATE SODIUM 100 MG (COLACE) CAP PO SCH ×2 (09:31→20:47)
[2020-12-20] MEDS: ACETAMINOPHEN 325 MG TABLET PO SCH ×3 (09:31→20:47)
[2020-12-20] MEDS: ASPIRIN 81 MG CHEW (CHILDREN'S ASA) PO SCH (09:31)
[2020-12-20] MEDS: FLUTICASONE NASAL SPRAY (FLONASE) 16 GM BTL NS SCH (09:32)
[2020-12-20] MEDS: predniSONE 10 MG TAB PO SCH (09:32)
[2020-12-20] MEDS: SALINE NASAL SPRAY (OCEAN) 45 ML BTL NS SCH ×3 (09:33→20:48)
[2020-12-20] MEDS: SALIVA STIMULANT MOUTH SPRAY (BIOTENE) 1.5 OZ MM SCH ×4 (09:33→20:49)
[2020-12-20] MEDS: polyethylene glycoL POWDER 17 GM (MIRALAX) PACK PO SCH ×2 (10:21→20:55)
--- NOTE | 2020-12-20 11:27 | Occupational Ther Daily Note ---
OT Current Status-Daily Note Subjective Pt AxO. Requires increased encouragement for participation this am due to it being "early." Pt states he typically completes ex on own prior to therapy. Pt denies pain. Pt states slept poorly last night, states a decreased energy/ strength through body this am. OT/ PT co-treat from [id number] due to pt's decreased endurance/ dependent transfers/ overall debility and decreased fx activity tolerance. OT addresses UE strength/ positioning/ wc mobility/ problem solving with PT addressing LE movement/ strength/ ambulation/ transfers, etc. [id number] (20): OT individual tx: Pt AxO, in chair upon entry, just finished with PT session. Pt states fatigue but ready for OT tx. Pt agrees to ther ex. Pt's RUE pitting edema dorsum of foot, more than LLE. Pt's nurse notified and KRIS [place] is donned/ LE's propped. Mental Status/Objective Patient Orientation: Person, Place, Situation, Normal For Age Attachments: Oxygen ADL-Treatment Therapy Code Descriptions/Definitions Functional [place] Measure: 0=Not Assessed/NA 4=Minimal Assistance 1=Total Assistance 5=Supervision or Setup 2=Maximal Assistance 6=Modified [place] 3=Moderate Assistance 7=Complete IndependenceSCALE: Activities may be completed with or without assistive devices. 7-Hrswkosfwe-qfqraqu completes the activity by him/herself with no assistance from a helper. 5-Set-up or Clean-up Assistance-helper sets up or cleans up; patient completes activity. [place] assists only prior to or following the activity. 4-Supervision or Touching Assistance-helper provides verbal cues and/or touching/steadying and/or contact guard assistance as patient completes activity. Assistance may be provided throughout the activity or intermittently. 3-Partial/Moderate Assistance-helper does LESS THAN HALF the effort. [place] lifts, holds or supports trunk or limbs, but provides less than half the effort. 2-Substantial/Maximal Assistance-helper does MORE THAN HALF the effort. [place] lifts or holds trunk or limbs and provides more than half the effort. 0-Ygnfgmygy-ghrczt does ALL the effort. Patient does none of the effort to complete the activity. Or, the assistance of 2 or more helpers is required for the patient to complete the activity. If activity was not attempted, code reason: 7-Patient Refused. 9-Not Applicable-not attempted and the patient did not perform the activity before the current illness, exacerbation or injury. 10-Not Attempted due to Environmental Limitations-(lack of equipment, weather restraints, etc.). 88-Not Attempted due to Medical Conditions or Safety Concerns. Eating (QC): 6 Shower/Bathe Self (QC): 7 (completed yesterday) On/Off Footwear: 3 (min A footwear / shoes) Toileting Hygiene (QC): 7 (denies toileting needs at this time. ) Other Treatment [id number]: OT/ PT co-treat from [id number] due to pt's decreased endurance/ dependent transfers/ overall debility and decreased fx activity tolerance. OT addresses UE strength/ positioning/ wc mobility/ problem solving with PT addressing LE movement/ strength/ ambulation/ transfers, etc. Attempt to sit to stand from recliner x2 without success (difficulty to full stance). Use of sit to stand to get to w/c, pt able to propel self to therapy gym with 02 attached and 02 maintaining. Pt completes sit to stands/ stands in parallel bars, requires cues for hand positioning. Use of mirror for visual fee dback for encouragement for full stance. Pt completes slight side to sides while in stance with PT assist. 02 monitored throughout, cues for breathing. Pt returns to room, sit to stand machine for transfer to recliner. All needs met, call light in reach. [id number] (20): Pt completes ther ex with red theraband in recliner. Pt completes 10 reps of the following exercises with modified tension applied depending on strength of the UE: bicep curl, shoulder flexion, external shoulder rotation, shoulder/ tricep extension and back pulls. Pt requires rest break between each task .Pt's KRIS hose donned bilaterally and LEs propped end of sessi on. Pt is encouraged to continue UE strengthening over the day, pt agrees, all needs met, call light in reach. 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 2=Patient will verbalize/demonstrate understanding of assistive de vices/modifications for ADL. 3=Patient will improve strength/tolerance for activity to enable patient to perform ADL's. OT Education/Plan Problem List/Assessment Assessment: Decreased Activ Tolerance, Decreased UE Strength, Dependent Transfers, Edema, Impaired Bed Mobility, Impaired Funct Balance, Impaired I ADL's, Impaired Self-Care Skills Discharge Recommendations Plan/Recommendations: Continue POC Therapy Discharge Recommendati: 24 Hour Supervision, Post Acute OT Treatment Plan/Plan of Care Treatment,Training & Education: Yes Patient would benefit from OT for education, treatment and training to promote independence in ADL's, mobility, safety and/or upper extremity function for ADL's. Plan of Care: ADL Retraining, Caregiver Training, Concurrent Therapy, Functional Mobility, Group Exercise/Act as Ind, UE Funct Exercise/Act, UE Neuromus Re-Ed/Coord, W/C Management Training Treatment Duration: Dec 25, 2020 Frequency: Modified Program (IRF) Estimated Hrs Per Day: 1.5 hours per day Agreement: Yes Rehab Potential: Fair Time/GCodes Start Time: 08:00 (1325) Stop Time: 09:00 (1345) Total Time Billed (hr/min): 80 (60+20) Billed Treatment Time OT/ PT co-treat from 3652-7333 due to pt's decreased endurance/ dependent transfers/ overall debility and decreased fx activity tolerance. OT addresses UE strength/ positioning/ wc mobility/ problem solving with PT addressing LE movement/ strength/ ambulation/ transfers, etc. 5066-6362: 1, EX 3 (45), FA (15)= 60 9633-7153: 1, EX (20) CHAPARRO GOLDEN OTR Dec 20, 2020 11:27
--- NOTE | 2020-12-20 12:19 | Cardiology Progress Note ---
Subjective Date Seen by Provider: Dec 20, 2020 Time Seen by Provider: 12:18 Subjective/Events-last exam Patient is sitting in bed, feeling well. No new complaint Review of Systems General: No Chills, No Night Sweats, No Fatigue, No Malaise, No Appetite, No Other HEENT: No Head Aches, No Visual Changes, No Eye Pain, No Ear Pain, No Dysphasia, No Sinus Congestion, No Post Nasal Drip, No Sore Throat, No Other Pulmonary: No Dyspnea, No Cough, No Pleuritic Chest Pain, No Other Cardiovascular: No: Chest Pain, Palpitations, Orthopnea, Paroxysmal Noc. Dyspnea, Edema, Lt Headedness, Other Objective-Cardiology Exam Last Set of Vital Signs Vital Signs 12/20/20 12/20/20 06:00 09:00 Temp 35.4 Pulse 61 Resp 18 B/P (MAP) 150/88 (108) Pulse Ox 99 O2 Delivery Nasal Cannula O2 Flow Rate 4.00 Capillary Refill : I&O Intake and Output 12/20/20 00:00 Intake Total 2040 ml Output Total 3000 ml Balance -960 ml Intake Oral 2040 ml Output Urine Total 3000 ml # Bowel Movements 1 General: Alert, Oriented X3, Cooperative HEENT: Atraumatic, PERRLA Neck: Supple, No JVD, No Thyromegaly Lungs: Clear to Auscultation, Normal Air Movement Heart: Normal S1, Normal S2, No Murmurs, Other (irregularly irregular) Abdomen: Normal Bowel Sounds, Soft, No Tenderness, No Hepatosplenomegaly, No Masses Extremities: No Clubbing, No Cyanosis Skin: No Rashes, No Significant Lesion Neuro: Normal Speech, Cranial Nerves 3-12 NL Psych/Mental Status: Mental Status NL, Mood NL A/P-Cardiology Admission Diagnosis Afib HTN HLP DM Assessment/Plan Atrial fibrillation with controlled ventricular rate, maintained on Eliquis, continue to monitor. Hypertension, better controlled today. 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 Dawkins Critical illness myopathy, COVID-19, continue PT/OT RICHY, treated with CPAP, managed by JOSE MARIA Mohan MD Dec 20, 2020 12:19
--- NOTE | 2020-12-20 13:13 | PM&R Progress Note ---
Subjective HPI/CC On Admission Date Seen by Provider: Dec 20, 2020 Time Seen by Provider: 12:45 Subjective/Events-last exam 12/20/20: Now has daily complaints about minor things since he was notified last week he would need a MA Nurse broke his grabber so will obtain replacement for him Butt paste placed on buttocks Stage 2 No other issues 12/19/20: No major issues Bowels are moving skilled nursing placement on Wednesday12/18/20: Discharge Wednesday to the [facility] Family training did not go well Son was there but did not engage Insists on going home but that would not be a possibility Placing Alevin on buttock 12/17/20: Family training today at 10:00 Still has a stage 2 buttock decubitus ulcer Overall feels like he is doing much better Son at bedside when I rounded later today and he was evaluating his progress 12/16/20: Pt doing pretty well Bowels moved today Left midline is functioning Blood sugar 147 Stage 2 decubitus ulcer on the buttock Working really hard to stand 12/15/20: Overall doing well No issues BM+ No falls 12/14/20: Doing well BM+ Dyspnea still continues No pain 12/13/20: Patient more alert today and energized No pain reported Oxycodone helps the foot pain Participating with therapy 12/12/20: Pt doing a lot better Having a lot of pain, takes Oxycodone for his foot and leg pain Bowels are moving Sleeping better Pt very well could require a chcf since he lives alone and is just not progressing well 12/11/20: No major issues Pretty much has plateaued and not made much progress with ambulation Epistaxis of the left nostril Nasal sprays will be continued Re-check and check with insurance coverage but he very well may need to be in a chcf 12/10/20: Pt doing pretty well Slept on and off last night Remains on 4 liters of O2 Swelling in his feel is pretty minimal Did not use his BiPAP last night and that likely is the cause of not sleeping well 12/09/20: Pt slept pretty well Bowels are moving PLTs are 97, 000 Normal WBC down from 21 when he first arrived Denies any significant issues Trying to get strong enough to walk 12/08/20: Slept well last night Remeron and Melatonin has helped him a lot Sinus tachy last night BM 12/06/20 so laxatives given No other issues 12/07/20: Slept better Yonker provided for phlem HR 60 Appreciate Cardiology 4L/min O2 BM 12/06/20 12/06/20: HR 122 Cardiology consulted Sugar 54 so decreasing insulin BM++ No pain reported No sleeping well so added hypnotics of Melatonin and Remeron 12/05/20: Patient doing well Worn out from fatigue Sugars are ok No pain reported Tachycardic so consulting Dr Carranza Midline was accidently pulled out so need a new one placed Checked meds and labs Review of Systems General: Fatigue, Malaise Pulmonary: Dyspnea, Cough Objective Exam Vital Signs Vital Signs Date Time Temp Pulse Resp B/P (MAP) Pulse Ox O2 Delivery O2 Flow Rate FiO2 12/21/20 05:35 36.0 62 17 144/77 (99) 99 NIV Bilevel 4.00 Capillary Refill : General Appearance: No Apparent Distress, WD/WN, Anxious, Chronically ill, Obese HEENT: PERRL/EOMI, Normal ENT Inspection, Pharynx Normal Neck: Full Range of Motion, Normal Inspection, Non Tender, Supple, Carotid Bruit Respiratory: Chest Non Tender, No Accessory Muscle Use, No Respiratory Distress, Crackles, Decreased Breath Sounds Cardiovascular: Regular Rate, Rhythm, No Gallop, No JVD, No Murmur, Normal Peripheral Pulses Gastrointestinal: Normal Bowel Sounds, No Organomegaly, No Pulsatile Mass, Non Tender, Soft Back: Normal Inspection, No CVA Tenderness, No Vertebral Tenderness Extremity: Normal Capillary Refill, Normal Inspection, Normal Range of Motion, Non Tender, No Calf Tenderness, Pedal Edema Neurologic/Psychiatric: Alert, Oriented x3, No Motor/Sensory Deficits, comic book writer II- XII Norm as Tested, Depressed Affect, Motor Weakness (generalized all extremities 3/5) Skin: Normal Color, Warm/Dry Lymphatic: No Adenopathy Results/Procedures Lab Patient resulted labs reviewed. FIM Transfers Therapy Code Descriptions/Definitions Functional [place] Measure: 0=Not Assessed/NA 4=Minimal Assistance 1=Total Assistance 5=Supervision or Setup 2=Maximal Assistance 6=Modified [place] 3=Moderate Assistance 7=Complete IndependenceSCALE: Activities may be completed with or without assistive devices. 8-Anoqqwvygx-hvoorpy completes the activity by him/herself with no assistance from a helper. 5-Set-up or Clean-up Assistance-helper sets up or cleans up; patient completes activity. [place] assists only prior to or following the activity. 4-Supervision or Touching Assistance-helper provides verbal cues and/or touching/steadying and/or contact guard assistance as patient completes activity. Assistance may be provided throughout the activity or intermittently. 3-Partial/Moderate Assistance-helper does LESS THAN HALF the effort. [place] lifts, holds or supports trunk or limbs, but provides less than half the effort. 2-Substantial/Maximal Assistance-helper does MORE THAN HALF the effort. [place] lifts or holds trunk or limbs and provides more than half the effort. 2-Fzbnqblgj-eycqzu does ALL the effort. Patient does none of the effort to complete the activity. Or, the assistance of 2 or more helpers is required for the patient to complete the activity. If activity was not attempted, code reason: 7-Patient Refused. 9-Not Applicable-not attempted and the patient did not perform the activity before the current illness, exacerbation or injury. 10-Not Attempted due to Environmental Limitations-(lack of equipment, weather restraints, etc.). 88-Not Attempted due to Medical Conditions or Safety Concerns. Roll Left to Right (QC): 4 Sit to Lying (QC): 2 Sit to Stand (QC): 3 Chair/Isl-xm-Sgefr Xfer(QC): 2 Car Transfer (QC): 88 (unsafe to attempt due to heavy need for assist. ) Gait Training Does the Patient Walk?: Yes Distance: 8' x2 Walk 10 feet (QC): 3 Walk 50 ft with 2 Turns(QC): 88 Walk 150 ft (QC): 88 Walking 10ft/uneven surface-QC: 88 Gait Persons Needed: 2 Gait Assistive Device: Parallel Bars Wheelchair Training Does the Pt Use a Wheelchair?: Yes Wheel 50 ft with 2 turns (QC): 6 Wheel 150 ft (QC): 6 Type of Wheelchair: Manual Stair Training 1 Step (curb) (QC): 88 4 Steps (QC): 88 12 Steps (QC): 88 Balance Picking up an Object (QC): 88 ADL-Treatment Eating (QC): 6 Oral Hygiene (QC): 7 Bathing Location: L Arm, R Arm, L Upper Leg, R Upper Leg, Chest, Abdomen, Perineal Area Shower/Bathe Self (QC): 7 (completed yesterday) Upper Body Dressing (QC): 5 Lower Body Dressing (QC): 1 (Assist x 2) On/Off Footwear (QC): 3 (min A footwear / shoes) Toileting Hygiene (QC): 7 (denies toileting needs at this time. 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 Obesity DM Neuropathy Anemia O2 dependence Plan: IRF protocol Monitor O2 O2 supplement 12/05/20: O2 maintained IRF protocol Cardiology consultation appreciated Midline replacement 12/06/20: Cardiology consult appreciated Decrease insulin Midline Monitor closely 12/07/20: Monitor closely O2 wean Increase acitivity Maintain Remeron and Melatonin 12/08/20: Monitor closely Check labs in am Monitor tachycardia Remeron and Melatonin 12/09/20: Labs normal Improved strength Weaning O2 Monitor insomnia Increase insulin 12/10/20: Monitor O2 Increase strength Severe myopathy of legs 12/11/20: Difficult to progress Continue therapy May need NHP 12/12/20: Pain control with Oxycodone Monitor bowels Monitor O2 12/13/20: Monitor pain Wean O2 CPAP mask seems to be working better 12/14/20: Improved status Stood up today with help O2 12/15/20: Wean O2 Monitor ambulation CPAP at night 12/16/20: Monitor progress Decubitus ulcer management Monitor BP 12/17/20: Family education/training today Monitor O2 CPAP with O2 12/18/20: Monitor O2 NH Wednesday Continue to work on stamina 12/19/20: Monitor O2 CPAP 12/20/20: Decubitus ulcer management Monitor O2 Replace grabber (1) COVID-19 (2) RICHY on CPAP (3) Obesity (4) Diabetes (5) Hypertension (6) Edema (7) Neuropathy (8) Anemia (9) Advanced age DEANNA BOO DO Dec 20, 2020 13:13
--- NOTE | 2020-12-20 13:23 | Physical Therapy Daily Note ---
PT Daily Note-Current Subjective Patient in recliner pre tx, agrees to PT, has no complaints of pain but states he is very tired. Appearance Patient in recliner post tx with nurse call, phone, tray, all needs met. Mental Status Patient Orientation: Person, Place, Situation Attachments: Oxygen Transfers SCALE: Activities may be completed with or without assistive devices. 1-Fmdzqoqyat-fpewzzq completes the activity by him/herself with no assistance from a helper. 5-Set-up or Clean-up Assistance-helper sets up or cleans up; patient completes activity. [place] assists only prior to or following the activity. 4-Supervision or Touching Assistance-helper provides verbal cues and/or touching/steadying and/or contact guard assistance as patient completes activity. Assistance may be provided throughout the activity or intermittently. 3-Partial/Moderate Assistance-helper does LESS THAN HALF the effort. [place] lifts, holds or supports trunk or limbs, but provides less than half the effort. 2-Substantial/Maximal Assistance-helper does MORE THAN HALF the effort. [place] lifts or holds trunk or limbs and provides more than half the effort. 7-Hbgxeiarz-idnmhk does ALL the effort. Patient does none of the effort to complete the activity. Or, the assistance of 2 or more helpers is required for the patient to complete the activity. If activity was not attempted, code reason: 7-Patient Refused. 9-Not Applicable-not attempted and the patient did not perform the activity before the current illness, exacerbation or injury. 10-Not Attempted due to Environmental Limitations-(lack of equipment, weather restraints, etc.). 88-Not Attempted due to Medical Conditions or Safety Concerns. Weight Bearing Full Weight Bearing Full Weight Bearing Exercises Supine Ex: Quad Set, Glut sets, Heel Slides, Short Arc Quads, Straight leg ma se, Hip abd/add Supine Reps: 20 Seated Therapy Exercises: Ankle pumps, Long arc quads, Hip flexion Seated Reps: 20 Treatments LE exercise Assessment Current Status: Fair Progress overall slowly improving functional mobility PT Short Term Goals Short Term Goals Time Frame: Dec 11, 2020 Roll Left & Right: 4 Sit to lyin Lying to sitting on side of be: 4 (met) Sit to stand: 3 Chair/vkx-om-rkbux transfer: 3 Walk 10 feet: 3 Walk 50 feet with two turns: 3 PT Snf Goals Snf Goals PT Senior Supplier Quality Engineer Goals Time Frame: Jan 01, 2021 Roll Left & Right (QC): 6 Sit to Lying (QC): 6 Lying-Sitting on Side/Bed(QC): 6 Sit to Stand (QC): 6 Chair/Lom-bq-Plrfg Xfer(QC): 6 Toilet Transfer (QC): 6 Car Transfer (QC): 6 Does the Patient Walk: No and Walking Goal IS indicated Walk 10 feet (QC): 6 Walk 50ft with 2 Turns (QC): 6 Walk 150 ft (QC): 6 Walking 10ft on Uneven Surface: 4 1 Step (curb) (QC): 4 4 Steps (QC): 4 12 Steps (QC): 4 Picking up an Object (QC): 5 Does the Pt use WC or Scooter?: No Wheel 50 feet with 2 turns (QC: 9 Wheel 150 feet: 9 PT Plan Problem List Problem List: Activity Tolerance, Functional Strength, Safety, Balance, Gait, Transfer, Bed Mobility, ROM Treatment/Plan Treatment Plan: Continue Plan of Care Treatment Plan: Bed Mobility, Education, Functional Activity Erick, Functional Strength, Group Therapy, Gait, Safety, Therapeutic Exercise, Transfers Treatment Duration: Jan 01, 2021 Frequency: At least 5 of 7 days/Wk (IRF) Estimated Hrs Per Day: Other (see notation) Patient and/or Family Agrees t: Yes Safety Risks/Education Patient Education: Correct Positioning, Safety Issues Teaching Recipient: Patient Teaching Methods: Demonstration, Discussion Response to Teaching: Reinforcement Needed Time/GCodes Time In: 1300 Time Out: 1315 Total Billed Treatment Time: 15 Total Billed Treatment 1 visit EX JENSEN SNIDER PT Dec 20, 2020 13:23
[2020-12-20 16:08] VITALS: BP 122/67
[2020-12-20] MEDS: MIRTAZAPINE 15 MG (REMERON) TAB PO SCH (20:47)
[2020-12-20] MEDS: MELATONIN 3 MG TABLET PO SCH (20:48)
[2020-12-21 05:35] VITALS: BP 144/77
[2020-12-21] MEDS: CATHETER FLUSH 10 ML SYR IV SCH ×3 (06:12→21:13)
[2020-12-21] MEDS: inSUlin ASPART (NovoLOG) 1 UNIT/0.01 ML (CHARGE PER UNIT) SC SCH ×4 (06:12→20:31)
[2020-12-21 08:00] VITALS: BP 141/73
[2020-12-21] MEDS: UMECLIDINIUM BROMIDE (INCRUSE ELLIPTA) 7'S IH SCH (09:21)
[2020-12-21] MEDS: ADVAIR HFA 115/21 MCG INHALER 8 GM IH SCH ×2 (09:22→19:40)
[2020-12-21] MEDS: ASCORBIC ACID (VIT C) 500 MG TABLET PO SCH ×2 (09:23→17:45)
[2020-12-21] MEDS: ASPIRIN 81 MG CHEW (CHILDREN'S ASA) PO SCH (09:23)
[2020-12-21] MEDS: TAMSULOSIN 0.4 MG (FLOMAX) CAP PO SCH (09:23)
[2020-12-21] MEDS: VITAMIN D3 25 MCG (1,000 UNITS) TABLET PO SCH (09:23)
[2020-12-21] MEDS: GABAPENTIN 100 MG (NEURONTIN) CAP PO SCH ×3 (09:24→20:29)
[2020-12-21] MEDS: LOSARTAN 25 MG (COZAAR) TAB PO SCH (09:24)
[2020-12-21] MEDS: PANTOPRAZOLE 40 MG (PROTONIX) TAB PO SCH (09:24)
[2020-12-21] MEDS: meTOprolol TARTRATE 50 MG (LOPRESSOR) TAB PO SCH ×2 (09:24→20:30)
[2020-12-21] MEDS: ACETAMINOPHEN 325 MG TABLET PO SCH ×3 (09:24→20:30)
[2020-12-21] MEDS: FINASTERIDE (PROSCAR) 5 MG TAB PO SCH (09:24)
[2020-12-21] MEDS: APIXABAN 5 MG (ELIQUIS) TABLET PO SCH ×2 (09:24→20:30)
[2020-12-21] MEDS: predniSONE 10 MG TAB PO SCH (09:26)
[2020-12-21] MEDS: ZINC OXIDE 16% OINT (BUTT PASTE) 57 GM TUBE TOP PRN (09:32)
[2020-12-21] MEDS: FLUTICASONE NASAL SPRAY (FLONASE) 16 GM BTL NS SCH (09:33)
[2020-12-21] MEDS: SALINE NASAL SPRAY (OCEAN) 45 ML BTL NS SCH ×3 (09:33→20:33)
[2020-12-21] MEDS: SALIVA STIMULANT MOUTH SPRAY (BIOTENE) 1.5 OZ MM SCH ×4 (09:33→20:32)
[2020-12-21] MEDS: polyethylene glycoL POWDER 17 GM (MIRALAX) PACK PO SCH ×2 (09:34→20:35)
[2020-12-21] MEDS: SENNA W/DOCUSATE (SENOKOT S) TABLET PO SCH ×2 (09:34→20:35)
[2020-12-21] MEDS: DOCUSATE SODIUM 100 MG (COLACE) CAP PO SCH ×2 (09:34→20:35)
--- NOTE | 2020-12-21 10:27 | Cardiology Progress Note ---
Subjective Date Seen by Provider: Dec 21, 2020 Time Seen by Provider: 10:26 Subjective/Events-last exam Patient is sitting in a chair, feeling well. No new complaint Review of Systems General: No Chills, No Night Sweats, No Fatigue, No Malaise, No Appetite, No Other HEENT: No Head Aches, No Visual Changes, No Eye Pain, No Ear Pain, No Dysphasia, No Sinus Congestion, No Post Nasal Drip, No Sore Throat, No Other Pulmonary: No Dyspnea, No Cough, No Pleuritic Chest Pain, No Other Cardiovascular: No: Chest Pain, Palpitations, Orthopnea, Paroxysmal Noc. Dyspnea, Edema, Lt Headedness, Other Objective-Cardiology Exam Last Set of Vital Signs Vital Signs 12/21/20 05:35 Temp 36.0 Pulse 62 Resp 17 B/P (MAP) 144/77 (99) Capillary Refill : I&O Intake and Output 12/21/20 00:00 Intake Total 1340 ml Output Total 2325 ml Balance -985 ml Intake Oral 1340 ml Output Urine Total 2325 ml # Bowel Movements 1 General: Alert, Oriented X3, Cooperative HEENT: Atraumatic, PERRLA Neck: Supple, No JVD, No Thyromegaly Lungs: Clear to Auscultation, Normal Air Movement Heart: Normal S1, Normal S2, No Murmurs, Other (irregularly irregular) Abdomen: Normal Bowel Sounds, Soft, No Tenderness, No Hepatosplenomegaly, No Masses Extremities: No Clubbing, No Cyanosis Skin: No Rashes, No Significant Lesion Neuro: Normal Speech, Cranial Nerves 3-12 NL Psych/Mental Status: Mental Status NL, Mood NL A/P-Cardiology Admission Diagnosis Afib HTN HLP DM Assessment/Plan Atrial fibrillation with controlled ventricular rate, maintained on Eliquis, continue to monitor. Hypertension, better control at this time. 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 Dawkins Critical illness myopathy, COVID-19, continue PT/OT RICHY, treated with CPAP, managed by JOSE MARIA Mohan MD Dec 21, 2020 10:26 am
--- NOTE | 2020-12-21 11:55 | Physical Therapy Daily Note ---
PT Daily Note-Current Subjective Pt denies pain. Pt states "I would like to walk" when asked what he would like to get done in his therapy today. Pt gives step by step instruction for his transfers and donning shoes. Transfers SCALE: Activities may be completed with or without assistive devices. 3-Xmvybexycg-tddmoxt completes the activity by him/herself with no assistance from a helper. 5-Set-up or Clean-up Assistance-helper sets up or cleans up; patient completes activity. [place] assists only prior to or following the activity. 4-Supervision or Touching Assistance-helper provides verbal cues and/or touching/steadying and/or contact guard assistance as patient completes activity. Assistance may be provided throughout the activity or intermittently. 3-Partial/Moderate Assistance-helper does LESS THAN HALF the effort. [place] lifts, holds or supports trunk or limbs, but provides less than half the effort. 2-Substantial/Maximal Assistance-helper does MORE THAN HALF the effort. [place] lifts or holds trunk or limbs and provides more than half the effort. 3-Jxwfreyjc-mbpoxn does ALL the effort. Patient does none of the effort to complete the activity. Or, the assistance of 2 or more helpers is required for the patient to complete the activity. If activity was not attempted, code reason: 7-Patient Refused. 9-Not Applicable-not attempted and the patient did not perform the activity before the current illness, exacerbation or injury. 10-Not Attempted due to Environmental Limitations-(lack of equipment, weather restraints, etc.). 88-Not Attempted due to Medical Conditions or Safety Concerns. Weight Bearing Full Weight Bearing Full Weight Bearing Treatments Pt mod A to EOB. Pt transferred to w/c with Liko lift. Donned shoes and shorts for pt. Pt propelled self to gym via w/c with 4L/ O2. O2 sats monitored throughout treatment. Fluctuated 88-98%. Pt was educated and instructed in fully in flating lungs. Practiced breathing with hand on stomach and chest for reference. Pt ambulated in //bars 3 bouts 7ft with CGA. Pt sit to stand trnsfer from w/c req'd min A. Pt on commode with call light and all needs met, nurse aid present. Assessment Current Status: Good Progress Pt did well with bringing his O2 sats back >90% as needed. Pt improved ability to amb 3 bouts 7 ft each with good step length and CGA. Pt pleased with his progress today. O2 insitu and call light in reach. All needs met. PT Short Term Goals Short Term Goals Time Frame: Dec 11, 2020 Roll Left & Right: 4 Sit to lyin Lying to sitting on side of be: 4 (met) Sit to stand: 3 Chair/zex-gj-coivt transfer: 3 Walk 10 feet: 3 Walk 50 feet with two turns: 3 PT Shelter Goals Riprap Worker Goals PT [place]ip[place] Worker Goals Time Frame: Jan 01, 2021 Roll Left & Right (QC): 6 Sit to Lying (QC): 6 Lying-Sitting on Side/Bed(QC): 6 Sit to Stand (QC): 6 Chair/Rmu-jt-Mtuxc Xfer(QC): 6 Toilet Transfer (QC): 6 Car Transfer (QC): 6 Does the Patient Walk: No and Walking Goal IS indicated Walk 10 feet (QC): 6 Walk 50ft with 2 Turns (QC): 6 Walk 150 ft (QC): 6 Walking 10ft on Uneven Surface: 4 1 Step (curb) (QC): 4 4 Steps (QC): 4 12 Steps (QC): 4 Picking up an Object (QC): 5 Does the Pt use WC or Scooter?: No Wheel 50 feet with 2 turns (QC: 9 Wheel 150 feet: 9 PT Plan Treatment/Plan Treatment Plan: Continue Plan of Care Treatment Plan: Bed Mobility, Education, Functional Activity Erick, Functional Strength, Group Therapy, Gait, Safety, Therapeutic Exercise, Transfers Treatment Duration: Jan 01, 2021 Frequency: At least 5 of 7 days/Wk (IRF) Estimated Hrs Per Day: Other (see notation) Patient and/or Family Agrees t: Yes Time/GCodes Time In: 800 Time Out: 850 Total Billed Treatment Time: 50 Total Billed Treatment 1, gait x 30', FA x 20' MACKENZIE STEVENS CPTA Dec 21, 2020 11:55
--- NOTE | 2020-12-21 12:31 | PM&R Progress Note ---
Subjective HPI/CC On Admission Date Seen by Provider: Dec 21, 2020 Time Seen by Provider: 12:45 Subjective/Events-last exam 12/21/20: Doing well Slept well BM today Edema improved on KRIS's Decubitus ulcers worsened due to sitting in chair all day long IS use increased 12/20/20: Now has daily complaints about minor things since he was notified last week he would need a [place] Nurse broke his grabber so will obtain replacement for him Butt paste placed on buttocks Stage 2 No other issues 12/19/20: No major issues Bowels are moving intermediate placement on Wednesday12/18/20: [facility] Family training did not go well Son was there but did not engage Insists on going home but that would not be a possibility Placing Alevin on buttock 12/17/20: Family training today at 10:00 Still has a stage 2 buttock decubitus ulcer Overall feels like he is doing much better Son at bedside when I rounded later today and he was evaluating his progress 12/16/20: Pt doing pretty well Bowels moved today Left midline is functioning Blood sugar 147 Stage 2 decubitus ulcer on the buttock Working really hard to stand 12/15/20: Overall doing well No issues BM+ No falls 12/14/20: Doing well BM+ Dyspnea still continues No pain 12/13/20: Patient more alert today and energized No pain reported Oxycodone helps the foot pain Participating with therapy 12/12/20: Pt doing a lot better Having a lot of pain, takes Oxycodone for his foot and leg pain Bowels are moving Sleeping better Pt very well could require a penitentiary since he lives alone and is just not progressing well 12/11/20: No major issues Pretty much has plateaued and not made much progress with ambulation Epistaxis of the left nostril Nasal sprays will be continued Re-check and check with insurance coverage but he very well may need to be in a penitentiary 12/10/20: Pt doing pretty well Slept on and off last night Remains on 4 liters of O2 Swelling in his feel is pretty minimal Did not use his BiPAP last night and that likely is the cause of not sleeping well 12/09/20: Pt slept pretty well Bowels are moving PLTs are 97, 000 Normal WBC down from 21 when he first arrived Denies any significant issues Trying to get strong enough to walk 12/08/20: Slept well last night Remeron and Melatonin has helped him a lot Sinus tachy last night BM 12/06/20 so laxatives given No other issues 12/07/20: Slept better Yonker provided for phlem HR 60 Appreciate Cardiology 4L/min O2 BM 12/06/20 12/06/20: HR 122 Cardiology consulted Sugar 54 so decreasing insulin BM++ No pain reported No sleeping well so added hypnotics of Melatonin and Remeron 12/05/20: Patient doing well Worn out from fatigue Sugars are ok No pain reported Tachycardic so consulting Dr Carranza Midline was accidently pulled out so need a new one placed Checked meds and labs Review of Systems General: Fatigue, Malaise Pulmonary: Dyspnea Neurological: Weakness Objective Exam Vital Signs Vital Signs Date Time Temp Pulse Resp B/P (MAP) Pulse Ox O2 Delivery O2 Flow Rate FiO2 12/22/20 05:53 37.0 62 20 147/75 (99) 99 NIV Bilevel 4.00 Capillary Refill : General Appearance: No Apparent Distress, WD/WN, Anxious, Chronically ill, Obese HEENT: PERRL/EOMI, Normal ENT Inspection, Pharynx Normal Neck: Full Range of Motion, Normal Inspection, Non Tender, Supple, Carotid Bruit Respiratory: Chest Non Tender, No Accessory Muscle Use, No Respiratory Distress, Crackles, Decreased Breath Sounds Cardiovascular: Regular Rate, Rhythm, No Gallop, No JVD, No Murmur, Normal Peripheral Pulses Gastrointestinal: Normal Bowel Sounds, No Organomegaly, No Pulsatile Mass, Non Tender, Soft Back: Normal Inspection, No CVA Tenderness, No Vertebral Tenderness Extremity: Normal Capillary Refill, Normal Inspection, Normal Range of Motion, Non Tender, No Calf Tenderness, Pedal Edema Neurologic/Psychiatric: Alert, Oriented x3, No Motor/Sensory Deficits, tripoler II- XII Norm as Tested, Depressed Affect, Motor Weakness (generalized all extremities 3/5) Skin: Normal Color, Warm/Dry Lymphatic: No Adenopathy Results/Procedures Lab Patient resulted labs reviewed. FIM Transfers Therapy Code Descriptions/Definitions Functional [place] Measure: 0=Not Assessed/NA 4=Minimal Assistance 1=Total Assistance 5=Supervision or Setup 2=Maximal Assistance 6=Modified [place] 3=Moderate Assistance 7=Complete IndependenceSCALE: Activities may be completed with or without assistive devices. 2-Laqhosmxos-fyypied completes the activity by him/herself with no assistance from a helper. 5-Set-up or Clean-up Assistance-helper sets up or cleans up; patient completes activity. [place] assists only prior to or following the activity. 4-Supervision or Touching Assistance-helper provides verbal cues and/or touching/steadying and/or contact guard assistance as patient completes activity. Assistance may be provided throughout the activity or intermittently. 3-Partial/Moderate Assistance-helper does LESS THAN HALF the effort. [place] lifts, holds or supports trunk or limbs, but provides less than half the effort. 2-Substantial/Maximal Assistance-helper does MORE THAN HALF the effort. [place] lifts or holds trunk or limbs and provides more than half the effort. 8-Vkznjfcvd-gecwfa does ALL the effort. Patient does none of the effort to complete the activity. Or, the assistance of 2 or more helpers is required for the patient to complete the activity. If activity was not attempted, code reason: 7-Patient Refused. 9-Not Applicable-not attempted and the patient did not perform the activity before the current illness, exacerbation or injury. 10-Not Attempted due to Environmental Limitations-(lack of equipment, weather restraints, etc.). 88-Not Attempted due to Medical Conditions or Safety Concerns. Roll Left to Right (QC): 4 Sit to Lying (QC): 2 Sit to Stand (QC): 3 Chair/Qat-ko-Orkkq Xfer(QC): 2 Car Transfer (QC): 88 (unsafe to attempt due to heavy need for assist. ) Gait Training Does the Patient Walk?: Yes Distance: 8' x2 Walk 10 feet (QC): 3 Walk 50 ft with 2 Turns(QC): 88 Walk 150 ft (QC): 88 Walking 10ft/uneven surface-QC: 88 Gait Persons Needed: 2 Gait Assistive Device: Parallel Bars Wheelchair Training Does the Pt Use a Wheelchair?: Yes Wheel 50 ft with 2 turns (QC): 6 Wheel 150 ft (QC): 6 Type of Wheelchair: Manual Stair Training 1 Step (curb) (QC): 88 4 Steps (QC): 88 12 Steps (QC): 88 Balance Picking up an Object (QC): 88 ADL-Treatment Eating (QC): 6 Oral Hygiene (QC): 7 Bathing Location: L Arm, R Arm, L Upper Leg, R Upper Leg, Chest, Abdomen, Perineal Area Shower/Bathe Self (QC): 7 (completed yesterday) Upper Body Dressing (QC): 5 Lower Body Dressing (QC): 1 (Assist x 2) On/Off Footwear (QC): 3 (min A footwear / shoes) Toileting Hygiene (QC): 7 (denies toileting needs at this time. 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 Obesity DM Neuropathy Anemia O2 dependence Plan: IRF protocol Monitor O2 O2 supplement 12/05/20: O2 maintained IRF protocol Cardiology consultation appreciated Midline replacement 12/06/20: Cardiology consult appreciated Decrease insulin Midline Monitor closely 12/07/20: Monitor closely O2 wean Increase acitivity Maintain Remeron and Melatonin 12/08/20: Monitor closely Check labs in am Monitor tachycardia Remeron and Melatonin 12/09/20: Labs normal Improved strength Weaning O2 Monitor insomnia Increase insulin 12/10/20: Monitor O2 Increase strength Severe myopathy of legs 12/11/20: Difficult to progress Continue therapy May need NHP 12/12/20: Pain control with Oxycodone Monitor bowels Monitor O2 12/13/20: Monitor pain Wean O2 CPAP mask seems to be working better 12/14/20: Improved status Stood up today with help O2 12/15/20: Wean O2 Monitor ambulation CPAP at night 12/16/20: Monitor progress Decubitus ulcer management Monitor BP 12/17/20: Family education/training today Monitor O2 CPAP with O2 12/18/20: Monitor O2 NH Wednesday Continue to work on stamina 12/19/20: Monitor O2 CPAP 12/20/20: Decubitus ulcer management Monitor O2 Replace grabber 12/21/20: Monitor O2 KRIS CPAP (1) COVID-19 (2) IRCHY on CPAP (3) Obesity (4) Diabetes (5) Hypertension (6) Edema (7) Neuropathy (8) Anemia (9) Advanced age DEANNA BOO DO Dec 21, 2020 12:31
[2020-12-21 16:30] VITALS: BP 114/66
[2020-12-21] MEDS: MIRTAZAPINE 15 MG (REMERON) TAB PO SCH (20:29)
[2020-12-21] MEDS: MELATONIN 3 MG TABLET PO SCH (20:29)
[2020-12-22] MEDS: inSUlin ASPART (NovoLOG) 1 UNIT/0.01 ML (CHARGE PER UNIT) SC SCH ×4 (05:45→20:10)
[2020-12-22] MEDS: CATHETER FLUSH 10 ML SYR IV SCH ×3 (05:45→20:11)
[2020-12-22 05:53] VITALS: BP 147/75
[2020-12-22 08:00] VITALS: BP 125/66
[2020-12-22] MEDS: ADVAIR HFA 115/21 MCG INHALER 8 GM IH SCH ×2 (08:03→18:16)
[2020-12-22] MEDS: UMECLIDINIUM BROMIDE (INCRUSE ELLIPTA) 7'S IH SCH (08:04)
[2020-12-22] MEDS: VITAMIN D3 25 MCG (1,000 UNITS) TABLET PO SCH (08:57)
[2020-12-22] MEDS: ASPIRIN 81 MG CHEW (CHILDREN'S ASA) PO SCH (08:57)
[2020-12-22] MEDS: APIXABAN 5 MG (ELIQUIS) TABLET PO SCH ×2 (08:57→20:09)
[2020-12-22] MEDS: TAMSULOSIN 0.4 MG (FLOMAX) CAP PO SCH (08:57)
[2020-12-22] MEDS: PANTOPRAZOLE 40 MG (PROTONIX) TAB PO SCH (08:57)
[2020-12-22] MEDS: meTOprolol TARTRATE 50 MG (LOPRESSOR) TAB PO SCH ×2 (08:57→20:09)
[2020-12-22] MEDS: GABAPENTIN 100 MG (NEURONTIN) CAP PO SCH ×3 (08:57→20:09)
[2020-12-22] MEDS: LOSARTAN 25 MG (COZAAR) TAB PO SCH (08:57)
[2020-12-22] MEDS: ACETAMINOPHEN 325 MG TABLET PO SCH ×3 (08:58→20:09)
[2020-12-22] MEDS: predniSONE 10 MG TAB PO SCH (08:58)
[2020-12-22] MEDS: FINASTERIDE (PROSCAR) 5 MG TAB PO SCH (08:58)
[2020-12-22] MEDS: ASCORBIC ACID (VIT C) 500 MG TABLET PO SCH ×2 (08:58→17:36)
[2020-12-22] MEDS: SALINE NASAL SPRAY (OCEAN) 45 ML BTL NS SCH ×3 (09:02→20:12)
[2020-12-22] MEDS: DOCUSATE SODIUM 100 MG (COLACE) CAP PO SCH ×2 (09:02→19:22)
[2020-12-22] MEDS: SALIVA STIMULANT MOUTH SPRAY (BIOTENE) 1.5 OZ MM SCH ×4 (09:02→20:18)
[2020-12-22] MEDS: FLUTICASONE NASAL SPRAY (FLONASE) 16 GM BTL NS SCH (09:03)
[2020-12-22] MEDS: polyethylene glycoL POWDER 17 GM (MIRALAX) PACK PO SCH ×2 (09:04→19:23)
[2020-12-22] MEDS: SENNA W/DOCUSATE (SENOKOT S) TABLET PO SCH ×2 (09:04→19:23)
--- NOTE | 2020-12-22 12:40 | PM&R Progress Note ---
Subjective HPI/CC On Admission Date Seen by Provider: Dec 22, 2020 Time Seen by Provider: 13:00 Subjective/Events-last exam 12/22/20: Home O2 evaluation tomorrow for DC Wednesday DM education will be provided DC planned for [place] 12/21/20: Doing well Slept well BM today Edema improved on KRIS's Decubitus ulcers worsened due to sitting in chair all day long IS use increased 12/20/20: Now has daily complaints about minor things since he was notified last week he would need a [place] Nurse broke his grabber so will obtain replacement for him Butt paste placed on buttocks Stage 2 No other issues 12/19/20: No major issues Bowels are moving snf placement on Wednesday12/18/20: Discharge Wednesday to the [facility] Family training did not go well Son was there but did not engage Insists on going home but that would not be a possibility Placing Alevin on buttock 12/17/20: Family training today at 10:00 Still has a stage 2 buttock decubitus ulcer Overall feels like he is doing much better Son at bedside when I rounded later today and he was evaluating his progress 12/16/20: Pt doing pretty well Bowels moved today Left midline is functioning Blood sugar 147 Stage 2 decubitus ulcer on the buttock Working really hard to stand 12/15/20: Overall doing well No issues BM+ No falls 12/14/20: Doing well BM+ Dyspnea still continues No pain 12/13/20: Patient more alert today and energized No pain reported Oxycodone helps the foot pain Participating with therapy 12/12/20: Pt doing a lot better Having a lot of pain, takes Oxycodone for his foot and leg pain Bowels are moving Sleeping better Pt very well could require a fci since he lives alone and is just not progressing well 12/11/20: No major issues Pretty much has plateaued and not made much progress with ambulation Epistaxis of the left nostril Nasal sprays will be continued Re-check and check with insurance coverage but he very well may need to be in a fci 12/10/20: Pt doing pretty well Slept on and off last night Remains on 4 liters of O2 Swelling in his feel is pretty minimal Did not use his BiPAP last night and that likely is the cause of not sleeping well 12/09/20: Pt slept pretty well Bowels are moving PLTs are 97, 000 Normal WBC down from 21 when he first arrived Denies any significant issues Trying to get strong enough to walk 12/08/20: Slept well last night Remeron and Melatonin has helped him a lot Sinus tachy last night BM 12/06/20 so laxatives given No other issues 12/07/20: Slept better Yonker provided for phlem HR 60 Appreciate Cardiology 4L/min O2 BM 12/06/20 12/06/20: HR 122 Cardiology consulted Sugar 54 so decreasing insulin BM++ No pain reported No sleeping well so added hypnotics of Melatonin and Remeron 12/05/20: Patient doing well Worn out from fatigue Sugars are ok No pain reported Tachycardic so consulting Dr Carranza Midline was accidently pulled out so need a new one placed Checked meds and labs Review of Systems General: Fatigue, Malaise Pulmonary: Dyspnea, Cough Cardiovascular: Edema Objective Exam Vital Signs Vital Signs Date Time Temp Pulse Resp B/P (MAP) Pulse Ox O2 Delivery O2 Flow Rate FiO2 12/22/20 09:00 Nasal Cannula 4.00 12/22/20 08:04 93 12/22/20 05:53 37.0 62 20 147/75 (99) Capillary Refill : General Appearance: No Apparent Distress, WD/WN, Anxious, Chronically ill, Obese HEENT: PERRL/EOMI, Normal ENT Inspection, Pharynx Normal Neck: Full Range of Motion, Normal Inspection, Non Tender, Supple, Carotid Bruit Respiratory: Chest Non Tender, No Accessory Muscle Use, No Respiratory Distress, Crackles, Decreased Breath Sounds Cardiovascular: Regular Rate, Rhythm, No Gallop, No JVD, No Murmur, Normal Peripheral Pulses Gastrointestinal: Normal Bowel Sounds, No Organomegaly, No Pulsatile Mass, Non Tender, Soft Back: Normal Inspection, No CVA Tenderness, No Vertebral Tenderness Extremity: Normal Capillary Refill, Normal Inspection, Normal Range of Motion, Non Tender, No Calf Tenderness, Pedal Edema Neurologic/Psychiatric: Alert, Oriented x3, No Motor/Sensory Deficits, nondestructive tester II- XII Norm as Tested, Depressed Affect, Motor Weakness (generalized all extremities 3/5) Skin: Normal Color, Warm/Dry Lymphatic: No Adenopathy Results/Procedures Lab Patient resulted labs reviewed. FIM Transfers Therapy Code Descriptions/Definitions Functional [place] Measure: 0=Not Assessed/NA 4=Minimal Assistance 1=Total Assistance 5=Supervision or Setup 2=Maximal Assistance 6=Modified [place] 3=Moderate Assistance 7=Complete IndependenceSCALE: Activities may be completed with or without assistive devices. 0-Isyspttikl-nrpcwuv completes the activity by him/herself with no assistance from a helper. 5-Set-up or Clean-up Assistance-helper sets up or cleans up; patient completes activity. [place] assists only prior to or following the activity. 4-Supervision or Touching Assistance-helper provides verbal cues and/or touching/steadying and/or contact guard assistance as patient completes activity. Assistance may be provided throughout the activity or intermittently. 3-Partial/Moderate Assistance-helper does LESS THAN HALF the effort. [place] lifts, holds or supports trunk or limbs, but provides less than half the effort. 2-Substantial/Maximal Assistance-helper does MORE THAN HALF the effort. [place] lifts or holds trunk or limbs and provides more than half the effort. 8-Rhhiwbtbz-vkviby does ALL the effort. Patient does none of the effort to complete the activity. Or, the assistance of 2 or more helpers is required for the patient to complete the activity. If activity was not attempted, code reason: 7-Patient Refused. 9-Not Applicable-not attempted and the patient did not perform the activity before the current illness, exacerbation or injury. 10-Not Attempted due to Environmental Limitations-(lack of equipment, weather restraints, etc.). 88-Not Attempted due to Medical Conditions or Safety Concerns. Roll Left to Right (QC): 4 Sit to Lying (QC): 2 Sit to Stand (QC): 3 Chair/Ixm-so-Sarig Xfer(QC): 2 Car Transfer (QC): 88 (unsafe to attempt due to heavy need for assist. ) Gait Training Does the Patient Walk?: Yes Distance: 8' x2 Walk 10 feet (QC): 3 Walk 50 ft with 2 Turns(QC): 88 Walk 150 ft (QC): 88 Walking 10ft/uneven surface-QC: 88 Gait Persons Needed: 2 Gait Assistive Device: Parallel Bars Wheelchair Training Does the Pt Use a Wheelchair?: Yes Wheel 50 ft with 2 turns (QC): 6 Wheel 150 ft (QC): 6 Type of Wheelchair: Manual Stair Training 1 Step (curb) (QC): 88 4 Steps (QC): 88 12 Steps (QC): 88 Balance Picking up an Object (QC): 88 ADL-Treatment Eating (QC): 6 Oral Hygiene (QC): 7 Bathing Location: L Arm, R Arm, L Upper Leg, R Upper Leg, Chest, Abdomen, Perineal Area Shower/Bathe Self (QC): 7 (completed yesterday) Upper Body Dressing (QC): 5 Lower Body Dressing (QC): 1 (Assist x 2) On/Off Footwear (QC): 3 (min A footwear / shoes) Toileting Hygiene (QC): 7 (denies toileting needs at this time. 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 Obesity DM Neuropathy Anemia O2 dependence Plan: IRF protocol Monitor O2 O2 supplement 12/05/20: O2 maintained IRF protocol Cardiology consultation appreciated Midline replacement 12/06/20: Cardiology consult appreciated Decrease insulin Midline Monitor closely 12/07/20: Monitor closely O2 wean Increase acitivity Maintain Remeron and Melatonin 12/08/20: Monitor closely Check labs in am Monitor tachycardia Remeron and Melatonin 12/09/20: Labs normal Improved strength Weaning O2 Monitor insomnia Increase insulin 12/10/20: Monitor O2 Increase strength Severe myopathy of legs 12/11/20: Difficult to progress Continue therapy May need NHP 12/12/20: Pain control with Oxycodone Monitor bowels Monitor O2 12/13/20: Monitor pain Wean O2 CPAP mask seems to be working better 12/14/20: Improved status Stood up today with help O2 12/15/20: Wean O2 Monitor ambulation CPAP at night 12/16/20: Monitor progress Decubitus ulcer management Monitor BP 12/17/20: Family education/training today Monitor O2 CPAP with O2 12/18/20: Monitor O2 NH Wednesday Continue to work on stamina 12/19/20: Monitor O2 CPAP 12/20/20: Decubitus ulcer management Monitor O2 Replace grabber 12/21/20: Monitor O2 KRIS CPAP 12/22/20: DC Wednesday to Home O2 evaluation (1) COVID-19 (2) RICHY on CPAP (3) Obesity (4) Diabetes (5) Hypertension (6) Edema (7) Neuropathy (8) Anemia (9) Advanced age DEANNA BOO DO Dec 22, 2020 12:40
--- NOTE | 2020-12-22 13:27 | Cardiology Progress Note ---
Subjective Date Seen by Provider: Dec 22, 2020 Time Seen by Provider: 13:27 Subjective/Events-last exam Patient is sitting in a chair, feeling better, no new complaint Review of Systems General: No Chills, No Night Sweats, No Fatigue, No Malaise, No Appetite, No Other HEENT: No Head Aches, No Visual Changes, No Eye Pain, No Ear Pain, No Dysphasia, No Sinus Congestion, No Post Nasal Drip, No Sore Throat, No Other Pulmonary: No Dyspnea, No Cough, No Pleuritic Chest Pain, No Other Cardiovascular: No: Chest Pain, Palpitations, Orthopnea, Paroxysmal Noc. Dyspnea, Edema, Lt Headedness, Other Objective-Cardiology Exam Last Set of Vital Signs Vital Signs 12/22/20 12/22/20 12/22/20 05:53 08:04 09:00 Temp 37.0 Pulse 62 Resp 20 B/P (MAP) 147/75 (99) Pulse Ox 93 O2 Delivery Nasal Cannula O2 Flow Rate 4.00 Capillary Refill : I&O Intake and Output 12/22/20 00:00 Intake Total 1050 ml Output Total 2225 ml Balance -1175 ml Intake Oral 1050 ml Output Urine Total 2225 ml # Bowel Movements 1 General: Alert, Oriented X3, Cooperative HEENT: Atraumatic, PERRLA Neck: Supple, No JVD, No Thyromegaly Lungs: Clear to Auscultation, Normal Air Movement Heart: Normal S1, Normal S2, No Murmurs, Other (irregularly irregular) Abdomen: Normal Bowel Sounds, Soft, No Tenderness, No Hepatosplenomegaly, No Masses Extremities: No Clubbing, No Cyanosis Skin: No Rashes, No Significant Lesion Neuro: Normal Speech, Cranial Nerves 3-12 NL Psych/Mental Status: Mental Status NL, Mood NL A/P-Cardiology Admission Diagnosis Afib HTN HLP DM Assessment/Plan Atrial fibrillation with controlled ventricular rate, maintained on Eliquis, continue to monitor. Hypertension, better control at this time. 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 Dawkins Critical illness myopathy, COVID-19, continue PT/OT RIHCY, treated with CPAP, managed by JOSE MARIA Mohan MD Dec 22, 2020 13:27
[2020-12-22 17:12] VITALS: BP 113/70
[2020-12-22] MEDS: MIRTAZAPINE 15 MG (REMERON) TAB PO SCH (20:09)
[2020-12-22] MEDS: MELATONIN 3 MG TABLET PO SCH (20:10)
[2020-12-23] MEDS: CATHETER FLUSH 10 ML SYR IV SCH ×3 (04:42→21:18)
[2020-12-23 05:34] LABS: ALBUMIN 3.3 GM/DL (3.2-4.5)
[2020-12-23 05:35] LABS: CHLORIDE 104 MMOL/L (98-107); POTASSIUM 4.3 MMOL/L (3.6-5.0); SODIUM 143 MMOL/L (135-145)
[2020-12-23 05:36] LABS: CALCIUM 9.1 MG/DL (8.5-10.1)
[2020-12-23 05:37] LABS: GLUCOSE 130 MG/DL (70-105); TOTAL PROTEIN 5.8 GM/DL (6.4-8.2)
[2020-12-23 05:38] LABS: CARBON DIOXIDE 28 MMOL/L (21-32)
[2020-12-23 05:39] LABS: BILIRUBIN,TOTAL 0.4 MG/DL (0.1-1.0)
[2020-12-23] MEDS: inSUlin ASPART (NovoLOG) 1 UNIT/0.01 ML (CHARGE PER UNIT) SC SCH ×4 (05:39→21:17)
[2020-12-23 05:40] LABS: ALKALINE PHOSPHATASE 51 U/L (40-136)
[2020-12-23 05:41] LABS: CREATININE SERUM 0.87 MG/DL (0.60-1.30); GFR ESTIMATED > 60
[2020-12-23 05:42] LABS: BUN/CREATININE RATIO 22
[2020-12-23 05:43] LABS: BASOPHILS % (AUTO) 1 % (0-10); EOSINOPHILS % (AUTO) 0 % (0-10); HEMATOCRIT 30 % (40-54); HEMOGLOBIN 9.3 g/dL (13.3-17.7); LYMPHOCYTES # (AUTO) 0.9 10^3/uL (1.0-4.0); LYMPHOCYTES % (AUTO) 12 % (12-44); MEAN CORPUSCULAR HEMOGLOBIN 29 pg (25-34); MEAN CORPUSCULAR HGB CONC 31 g/dL (32-36); MEAN CORPUSCULAR VOLUME 95 fL (80-99); MEAN PLATELET VOLUME 9.6 fL (9.0-12.2); MONOCYTES # (AUTO) 0.9 10^3/uL (0.0-1.0); MONOCYTES % (AUTO) 13 % (0-12); NEUTROPHILS # (AUTO) 4.8 10^3/uL (1.8-7.8); NEUTROPHILS % (AUTO) 67 % (42-75); PLATELET COUNT 260 10^3/uL (130-400); WHITE BLOOD COUNT 7.1 10^3/uL (4.3-11.0)
[2020-12-23 05:44] LABS: ALANINE AMINOTRANSFERASE 36 U/L (0-55)
[2020-12-23 06:09] VITALS: BP 145/76
[2020-12-23] MEDS: ADVAIR HFA 115/21 MCG INHALER 8 GM IH SCH ×2 (07:45→18:51)
[2020-12-23] MEDS: UMECLIDINIUM BROMIDE (INCRUSE ELLIPTA) 7'S IH SCH (07:46)
[2020-12-23] MEDS: ASCORBIC ACID (VIT C) 500 MG TABLET PO SCH ×2 (07:55→16:52)
[2020-12-23] MEDS: PANTOPRAZOLE 40 MG (PROTONIX) TAB PO SCH (07:56)
[2020-12-23] MEDS: predniSONE 10 MG TAB PO SCH (07:56)
[2020-12-23] MEDS: meTOprolol TARTRATE 50 MG (LOPRESSOR) TAB PO SCH ×2 (07:56→21:16)
[2020-12-23] MEDS: VITAMIN D3 25 MCG (1,000 UNITS) TABLET PO SCH (07:56)
[2020-12-23] MEDS: APIXABAN 5 MG (ELIQUIS) TABLET PO SCH ×2 (07:56→21:16)
[2020-12-23] MEDS: ACETAMINOPHEN 325 MG TABLET PO SCH ×3 (07:56→21:16)
[2020-12-23] MEDS: LOSARTAN 25 MG (COZAAR) TAB PO SCH (07:57)
[2020-12-23] MEDS: TAMSULOSIN 0.4 MG (FLOMAX) CAP PO SCH (07:57)
[2020-12-23] MEDS: FINASTERIDE (PROSCAR) 5 MG TAB PO SCH (07:57)
[2020-12-23] MEDS: ASPIRIN 81 MG CHEW (CHILDREN'S ASA) PO SCH (07:57)
[2020-12-23] MEDS: GABAPENTIN 100 MG (NEURONTIN) CAP PO SCH ×3 (07:57→21:16)
[2020-12-23] MEDS: SALIVA STIMULANT MOUTH SPRAY (BIOTENE) 1.5 OZ MM SCH ×4 (07:58→21:19)
[2020-12-23] MEDS: FLUTICASONE NASAL SPRAY (FLONASE) 16 GM BTL NS SCH (07:58)
--- NOTE | 2020-12-23 08:35 | PM&R Progress Note ---
Subjective HPI/CC On Admission Date Seen by Provider: Dec 23, 2020 Time Seen by Provider: 08:45 Subjective/Events-last exam 12/23/20: Pt doing pretty well Buttock decubitus ulcer needs further treatment Discharge planned for tomorrow Hemaglobin 9.3 Midline will be discontinued at his request 12/22/20: Home O2 evaluation tomorrow for DC Wednesday DM education will be provided DC planned for NH 12/21/20: Doing well Slept well BM today Edema improved on KRIS's Decubitus ulcers worsened due to sitting in chair all day long IS use increased 12/20/20: Now has daily complaints about minor things since he was notified last week he would need a [place] Nurse broke his grabber so will obtain replacement for him Butt paste placed on buttocks Stage 2 No other issues 12/19/20: No major issues Bowels are moving FDC placement on Wednesday12/18/20: Discharge Wednesday to the fpc Family training did not go well Son was there but did not engage Insists on going home but that would not be a possibility Placing Alevin on buttock 12/17/20: Family training today at 10:00 Still has a stage 2 buttock decubitus ulcer Overall feels like he is doing much better Son at bedside when I rounded later today and he was evaluating his progress 12/16/20: Pt doing pretty well Bowels moved today Left midline is functioning Blood sugar 147 Stage 2 decubitus ulcer on the buttock Working really hard to stand 12/15/20: Overall doing well No issues BM+ No falls 12/14/20: Doing well BM+ Dyspnea still continues No pain 12/13/20: Patient more alert today and energized No pain reported Oxycodone helps the foot pain Participating with therapy 12/12/20: Pt doing a lot better Having a lot of pain, takes Oxycodone for his foot and leg pain Bowels are moving Sleeping better Pt very well could require a fpc since he lives alone and is just not progressing well 12/11/20: No major issues Pretty much has plateaued and not made much progress with ambulation Epistaxis of the left nostril Nasal sprays will be continued Re-check and check with insurance coverage but he very well may need to be in a fpc 12/10/20: Pt doing pretty well Slept on and off last night Remains on 4 liters of O2 Swelling in his feel is pretty minimal Did not use his BiPAP last night and that likely is the cause of not sleeping well 12/09/20: Pt slept pretty well Bowels are moving PLTs are 97, 000 Normal WBC down from 21 when he first arrived Denies any significant issues Trying to get strong enough to walk 12/08/20: Slept well last night Remeron and Melatonin has helped him a lot Sinus tachy last night BM 12/06/20 so laxatives given No other issues 12/07/20: Slept better Yonker provided for phlem HR 60 Appreciate Cardiology 4L/min O2 BM 12/06/20 12/06/20: HR 122 Cardiology consulted Sugar 54 so decreasing insulin BM++ No pain reported No sleeping well so added hypnotics of Melatonin and Remeron 12/05/20: Patient doing well Worn out from fatigue Sugars are ok No pain reported Tachycardic so consulting Dr Carranza Midline was accidently pulled out so need a new one placed Checked meds and labs Review of Systems General: Fatigue, Malaise Neurological: Weakness Objective Exam Vital Signs Vital Signs Date Time Temp Pulse Resp B/P (MAP) Pulse Ox O2 Delivery O2 Flow Rate FiO2 12/23/20 20:52 Nasal Cannula 4.00 12/23/20 18:52 94 12/23/20 16:00 36.4 102 16 114/67 (83) Capillary Refill : General Appearance: No Apparent Distress, WD/WN, Anxious, Chronically ill, Obese HEENT: PERRL/EOMI, Normal ENT Inspection, Pharynx Normal Neck: Full Range of Motion, Normal Inspection, Non Tender, Supple, Carotid Bruit Respiratory: Chest Non Tender, No Accessory Muscle Use, No Respiratory Distress, Crackles, Decreased Breath Sounds Cardiovascular: Regular Rate, Rhythm, No Gallop, No JVD, No Murmur, Normal Peripheral Pulses Gastrointestinal: Normal Bowel Sounds, No Organomegaly, No Pulsatile Mass, Non Tender, Soft Back: Normal Inspection, No CVA Tenderness, No Vertebral Tenderness Extremity: Normal Capillary Refill, Normal Inspection, Normal Range of Motion, Non Tender, No Calf Tenderness, Pedal Edema Neurologic/Psychiatric: Alert, Oriented x3, No Motor/Sensory Deficits, manager market II- XII Norm as Tested, Depressed Affect, Motor Weakness Skin: Normal Color, Warm/Dry Lymphatic: No Adenopathy Results/Procedures Lab Laboratory Tests 12/23/20 04:58 Patient resulted labs reviewed. FIM Transfers Therapy Code Descriptions/Definitions Functional [place] Measure: 0=Not Assessed/NA 4=Minimal Assistance 1=Total Assistance 5=Supervision or Setup 2=Maximal Assistance 6=Modified [place] 3=Moderate Assistance 7=Complete IndependenceSCALE: Activities may be completed with or without assistive devices. 4-Phubvtxfjj-xutbzco completes the activity by him/herself with no assistance from a helper. 5-Set-up or Clean-up Assistance-helper sets up or cleans up; patient completes activity. [place] assists only prior to or following the activity. 4-Supervision or Touching Assistance-helper provides verbal cues and/or touching/steadying and/or contact guard assistance as patient completes activity. Assistance may be provided throughout the activity or intermittently. 3-Partial/Moderate Assistance-helper does LESS THAN HALF the effort. [place] lifts, holds or supports trunk or limbs, but provides less than half the effort. 2-Substantial/Maximal Assistance-helper does MORE THAN HALF the effort. [place] lifts or holds trunk or limbs and provides more than half the effort. 9-Ynkehvvwl-tsmdik does ALL the effort. Patient does none of the effort to c omplete the activity. Or, the assistance of 2 or more helpers is required for the patient to complete the activity. If activity was not attempted, code reason: 7-Patient Refused. 9-Not Applicable-not attempted and the patient did not perform the activity before the current illness, exacerbation or injury. 10-Not Attempted due to Environmental Limitations-(lack of equipment, weather restraints, etc.). 88-Not Attempted due to Medical Conditions or Safety Concerns. Roll Left to Right (QC): 4 Sit to Lying (QC): 2 Sit to Stand (QC): 3 Chair/Hhx-wy-Mhidb Xfer(QC): 2 Car Transfer (QC): 88 (unsafe to attempt due to heavy need for assist. ) Gait Training Does the Patient Walk?: Yes Distance: 8' x2 Walk 10 feet (QC): 3 Walk 50 ft with 2 Turns(QC): 88 Walk 150 ft (QC): 88 Walking 10ft/uneven surface-QC: 88 Gait Persons Needed: 2 Gait Assistive Device: Parallel Bars Wheelchair Training Does the Pt Use a Wheelchair?: Yes Wheel 50 ft with 2 turns (QC): 6 Wheel 150 ft (QC): 6 Type of Wheelchair: Manual Stair Training 1 Step (curb) (QC): 88 4 Steps (QC): 88 12 Steps (QC): 88 Balance Picking up an Object (QC): 88 ADL-Treatment Eating (QC): 6 Oral Hygiene (QC): 7 Bathing Location: L Arm, R Arm, L Upper Leg, R Upper Leg, Chest, Abdomen, Perineal Area Shower/Bathe Self (QC): 7 (completed yesterday) Upper Body Dressing (QC): 5 Lower Body Dressing (QC): 1 (Assist x 2) On/Off Footwear (QC): 3 (min A footwear / shoes) Toileting Hygiene (QC): 7 (denies toileting needs at this time. 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 Obesity DM Neuropathy Anemia O2 dependence Plan: IRF protocol Monitor O2 O2 supplement 12/05/20: O2 maintained IRF protocol Cardiology consultation appreciated Midline replacement 12/06/20: Cardiology consult appreciated Decrease insulin Midline Monitor closely 12/07/20: Monitor closely O2 wean Increase acitivity Maintain Remeron and Melatonin 12/08/20: Monitor closely Check labs in am Monitor tachycardia Remeron and Melatonin 12/09/20: Labs normal Improved strength Weaning O2 Monitor insomnia Increase insulin 12/10/20: Monitor O2 Increase strength Severe myopathy of legs 12/11/20: Difficult to progress Continue therapy May need NHP 12/12/20: Pain control with Oxycodone Monitor bowels Monitor O2 12/13/20: Monitor pain Wean O2 CPAP mask seems to be working better 12/14/20: Improved status Stood up today with help O2 12/15/20: Wean O2 Monitor ambulation CPAP at night 12/16/20: Monitor progress Decubitus ulcer management Monitor BP 12/17/20: Family education/training today Monitor O2 CPAP with O2 12/18/20: Monitor O2 NH Wednesday Continue to work on stamina 12/19/20: Monitor O2 CPAP 12/20/20: Decubitus ulcer management Monitor O2 Replace grabber 12/21/20: Monitor O2 KRIS CPAP 12/22/20: DC Wednesday to [place] Home O2 evaluation 12/23/20: DC midline DC tomorrow to NH Needs eye exam soon for blurry vision (1) COVID-19 (2) RICHY on CPAP (3) Obesity (4) Diabetes (5) Hypertension (6) Edema (7) Neuropathy (8) Anemia (9) Advanced age DEANNA BOO DO Dec 23, 2020 08:35
[2020-12-23] MEDS: DOCUSATE SODIUM 100 MG (COLACE) CAP PO SCH ×2 (08:38→21:18)
[2020-12-23] MEDS: SENNA W/DOCUSATE (SENOKOT S) TABLET PO SCH ×2 (08:38→21:18)
[2020-12-23] MEDS: SALINE NASAL SPRAY (OCEAN) 45 ML BTL NS SCH ×3 (08:38→21:19)
[2020-12-23] MEDS: polyethylene glycoL POWDER 17 GM (MIRALAX) PACK PO SCH ×2 (08:38→21:18)
--- NOTE | 2020-12-23 08:42 | Cardiology Progress Note ---
Subjective Date Seen by Provider: Dec 23, 2020 Time Seen by Provider: 08:41 Subjective/Events-last exam Patient sitting up in chair, no new complaints. Denies any chest pain or dyspnea. Review of Systems General: No Chills, No Night Sweats, No Fatigue, No Malaise, No Appetite, No Other HEENT: No Head Aches, No Visual Changes, No Eye Pain, No Ear Pain, No Dysphasia, No Sinus Congestion, No Post Nasal Drip, No Sore Throat, No Other Pulmonary: No Dyspnea, No Cough, No Pleuritic Chest Pain, No Other Cardiovascular: No: Chest Pain, Palpitations, Orthopnea, Paroxysmal Noc. Dyspnea, Edema, Lt Headedness, Other Objective-Cardiology Exam Last Set of Vital Signs Vital Signs 12/23/20 12/23/20 12/23/20 06:09 07:45 09:00 Temp 35.6 Pulse 64 Resp 16 B/P (MAP) 145/76 (99) Pulse Ox 94 O2 Delivery Nasal Cannula O2 Flow Rate 4.00 Capillary Refill : I&O Intake and Output 12/22/20 23:59 Intake Total 2110 ml Output Total 3455 ml Balance -1345 ml Intake Oral 2110 ml Output Urine Total 3455 ml # Voids 1 # Bowel Movements 1 General: Alert, Oriented X3, Cooperative HEENT: Atraumatic, PERRLA Neck: Supple, No JVD, No Thyromegaly Lungs: Clear to Auscultation, Normal Air Movement Heart: Normal S1, Normal S2, No Murmurs, Other (irregularly irregular) Abdomen: Normal Bowel Sounds, Soft, No Tenderness, No Hepatosplenomegaly, No Masses Extremities: No Clubbing, No Cyanosis Skin: No Rashes, No Significant Lesion Neuro: Normal Speech, Cranial Nerves 3-12 NL Psych/Mental Status: Mental Status NL, Mood NL Results Lab Laboratory Tests 12/23/20 04:58 A/P-Cardiology Admission Diagnosis Afib HTN HLP DM Assessment/Plan Atrial fibrillation with controlled ventricular rate, maintained on Eliquis, continue to monitor. Hypertension, better control at this time. 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 Dawkins Critical illness myopathy, COVID-19, continue PT/OT RICHY, treated with CPAP, managed by Dr Dawkins Patient was seen and evaluated with Rhona, examination performed, management plan was discussed, agree with the current scribed note, I made few changes to the note using Italic font Patient was eating lunch, feeling better. No new complaint PICC line s not working, requested to remove the line. Okay for discharge from cardiology standpoint RHONA MARTINEZ Dec 23, 2020 8:42 am JOSE MARIA QUEZADA MD Dec 23, 2020 12:09 pm
--- NOTE | 2020-12-23 10:46 | Physical Therapy Daily Note ---
PT Daily Note-Current Subjective Agrees to PT. Acknowledges that he is to discharge tomorrow to a SNF in [place]. Plans to have return home when able. Pain Numeric Pain Scale: 0-No Pain Location: No Pain Reported Mental Status Patient Orientation: Person, Place, Time, Situation Transfers SCALE: Activities may be completed with or without assistive devices. 1-Ufggfqxkic-kivprbz completes the activity by him/herself with no assistance from a helper. 5-Set-up or Clean-up Assistance-helper sets up or cleans up; patient completes activity. [place] assists only prior to or following the activity. 4-Supervision or Touching Assistance-helper provides verbal cues and/or touching/steadying and/or contact guard assistance as patient completes activity. Assistance may be provided throughout the activity or intermittently. 3-Partial/Moderate Assistance-helper does LESS THAN HALF the effort. [place] lifts, holds or supports trunk or limbs, but provides less than half the effort. 2-Substantial/Maximal Assistance-helper does MORE THAN HALF the effort. [place] lifts or holds trunk or limbs and provides more than half the effort. 0-Txcecivol-gkfwqa does ALL the effort. Patient does none of the effort to complete the activity. Or, the assistance of 2 or more helpers is required for the patient to complete the activity. If activity was not attempted, code reason: 7-Patient Refused. 9-Not Applicable-not attempted and the patient did not perform the activity before the current illness, exacerbation or injury. 10-Not Attempted due to Environmental Limitations-(lack of equipment, weather restraints, etc.). 88-Not Attempted due to Medical Conditions or Safety Concerns. Roll Left & Right (QC): 6 Sit to Lying (QC): 6 Lying to Sitting/Side of Bed(Q: 6 Sit to Stand (QC): 3 (mod assist to come to a stand with cues for hand placement and sequencing. ) Chair/Vza-hr-Xhzso Xfer(QC): 1 (sit to stand lift for transfer) Toilet Transfer (QC): 1 Car Transfer (QC): 3 (mod assist for car transfer with partial stand turn) Weight Bearing Full Weight Bearing Full Weight Bearing Gait Training Distance: unable to walk outside of // bars Walk 10 feet (QC): 88 Walk 50 ft with 2 Turns(QC): 88 Walk 150 ft (QC): 88 Walking 10ft/uneven surface-QC: 88 Wheelchair Training Does the Pt Use a Wheelchair?: Yes Wheel 50 ft with 2 turns (QC): 6 Wheel 150 ft (QC): 6 Type of Wheelchair: Manual Stair Training 1 Step (curb) (QC): 88 4 Steps (QC): 88 12 Steps (QC): 88 Balance Picking up an Object (QC): 88 Treatments Oxygen at 4l/min throughout and post treatment session. Worked on functional transfers to include bed mobilty, car transfer and wc mobility; sit to stand at // bars with work on pushing up from the chair, needed to pull up on the bars and mod assist to lift. Sit to stand x 4 reps with work on leaning forward, feet under him and rocking for momentum. Pt in room in wc post visit with OT following. Assessment Current Status: Good Progress Pt's bed mobiltiyi and transfers are improving; lacks hip and quad extension strength that limits functional sit to stand transfers. He does very well with wc mobility and is able to problem solve well. He has made functional gains and his functional activity tolerance has progressed as well. He has potential to continue to progress and make further gains in terms of transfer and gait initiation. Pt is motivated, cooperative and works hard with therapy. PT Short Term Goals Short Term Goals Time Frame: Dec 11, 2020 Roll Left & Right: 4 (met) Sit to lyin (met) Lying to sitting on side of be: 4 (met) Sit to stand: 3 Chair/azt-no-oukey transfer: 3 Walk 10 feet: 3 Walk 50 feet with two turns: 3 PT Halfway Goals Laboratory Asst Goals PT Laboratory Asst Goals Time Frame: Jan 01, 2021 Roll Left & Right (QC): 6 Sit to Lying (QC): 6 Lying-Sitting on Side/Bed(QC): 6 Sit to Stand (QC): 6 Chair/Bww-vi-Wmeud Xfer(QC): 6 Toilet Transfer (QC): 6 Car Transfer (QC): 6 Does the Patient Walk: No and Walking Goal IS indicated Walk 10 feet (QC): 6 Walk 50ft with 2 Turns (QC): 6 Walk 150 ft (QC): 6 Walking 10ft on Uneven Surface: 4 1 Step (curb) (QC): 4 4 Steps (QC): 4 12 Steps (QC): 4 Picking up an Object (QC): 5 Does the Pt use WC or Scooter?: No Wheel 50 feet with 2 turns (QC: 9 Wheel 150 feet: 9 Goals unmet, but he has made functional gains. Recommend continued skilled therapy services upon discharge from this facility. PT Plan Problem List Problem List: Activity Tolerance, Functional Strength, Safety, Balance, Gait, Transfer, Bed Mobility Treatment/Plan Treatment Plan: Continue Plan of Care Treatment Plan: Bed Mobility, Education, Functional Activity Erick, Functional Strength, Group Therapy, Gait, Safety, Therapeutic Exercise, Transfers Treatment Duration: Jan 01, 2021 Frequency: At least 5 of 7 days/Wk (IRF) Estimated Hrs Per Day: Other (see notation) Patient and/or Family Agrees t: Yes Safety Risks/Education Patient Education: Transfer Techniques, Safety Issues Teaching Recipient: Patient Teaching Methods: Discussion Response to Teaching: Verbalize Understanding Discharge Recommendations Therapy Discharge Recommendati: Post Acute PT Time/GCodes Time In: 930 Time Out: 1030 Total Billed Treatment Time: 60 Total Billed Treatment visit FA 60 BRITNEY PACHECO PT Dec 23, 2020 10:46
--- NOTE | 2020-12-23 14:14 | Physical Therapy Daily Note ---
PT Daily Note-Current Subjective Pt sitting on BSC in Sit to Stand lift upon arrival to answer call light. Pt agrees to PT. Pain Location: No Pain Reported Mental Status Patient Orientation: Person, Place Transfers SCALE: Activities may be completed with or without assistive devices. 3-Cuzjjyvbba-jxfppxr completes the activity by him/herself with no assistance from a helper. 5-Set-up or Clean-up Assistance-helper sets up or cleans up; patient completes activity. [place] assists only prior to or following the activity. 4-Supervision or Touching Assistance-helper provides verbal cues and/or touching/steadying and/or contact guard assistance as patient completes activity. Assistance may be provided throughout the activity or intermittently. 3-Partial/Moderate Assistance-helper does LESS THAN HALF the effort. [place] lifts, holds or supports trunk or limbs, but provides less than half the effort. 2-Substantial/Maximal Assistance-helper does MORE THAN HALF the effort. [place] lifts or holds trunk or limbs and provides more than half the effort. 3-Pxtckogza-wyjrlr does ALL the effort. Patient does none of the effort to complete the activity. Or, the assistance of 2 or more helpers is required for the patient to complete the activity. If activity was not attempted, code reason: 7-Patient Refused. 9-Not Applicable-not attempted and the patient did not perform the activity before the current illness, exacerbation or injury. 10-Not Attempted due to Environmental Limitations-(lack of equipment, weather restraints, etc.). 88-Not Attempted due to Medical Conditions or Safety Concerns. Sit to Stand (QC): 1 Weight Bearing Full Weight Bearing Full Weight Bearing Treatments GLOBAL MARKETING COORDINATOR uses Sit to Stand lift with tech present to assist with pericare. Pt transfers to recliner at end of tx with all needs met, call light in hand. Assessment Current Status: Fair Progress Pt continues to need assist for transfers due to weakness. PT Short Term Goals Short Term Goals Time Frame: Dec 11, 2020 Roll Left & Right: 4 (met) Sit to lyin (met) Lying to sitting on side of be: 4 (met) Sit to stand: 3 Chair/qsr-dx-luwjg transfer: 3 Walk 10 feet: 3 Walk 50 feet with two turns: 3 PT Mcc Goals Mcc Goals PT Mcc Goals Time Frame: Jan 01, 2021 Roll Left & Right (QC): 6 Sit to Lying (QC): 6 Lying-Sitting on Side/Bed(QC): 6 Sit to Stand (QC): 6 Chair/Poq-td-Abzli Xfer(QC): 6 Toilet Transfer (QC): 6 Car Transfer (QC): 6 Does the Patient Walk: No and Walking Goal IS indicated Walk 10 feet (QC): 6 Walk 50ft with 2 Turns (QC): 6 Walk 150 ft (QC): 6 Walking 10ft on Uneven Surface: 4 1 Step (curb) (QC): 4 4 Steps (QC): 4 12 Steps (QC): 4 Picking up an Object (QC): 5 Does the Pt use WC or Scooter?: No Wheel 50 feet with 2 turns (QC: 9 Wheel 150 feet: 9 PT Plan Problem List Problem List: Activity Tolerance, Functional Strength, Safety, Balance, Gait, Transfer Treatment/Plan Treatment Plan: Continue Plan of Care Treatment Plan: Bed Mobility, Education, Functional Activity Erick, Functional Strength, Group Therapy, Gait, Safety, Therapeutic Exercise, Transfers Treatment Duration: Jan 01, 2021 Frequency: At least 5 of 7 days/Wk (IRF) Estimated Hrs Per Day: Other (see notation) Patient and/or Family Agrees t: Yes Safety Risks/Education Patient Education: Transfer Techniques, Correct Positioning, Safety Issues Teaching Recipient: Patient Teaching Methods: Discussion Response to Teaching: Verbalize Understanding Time/GCodes Time In: 1400 Time Out: 1415 Total Billed Treatment Time: 15 Total Billed Treatment 1, FA (15m) AMADOU CASTILLO GLOBAL MARKETING COORDINATOR Dec 23, 2020 14:14
--- NOTE | 2020-12-23 14:36 | Occupational Ther Daily Note ---
OT Current Status-Daily Note Subjective No pain reported. Appearance Pt. up in wheelchair after finishing PT. States that he is tired. Mental Status/Objective Patient Orientation: Person, Place Attachments: Oxygen ADL-Treatment Therapy Code Descriptions/Definitions Functional [place] Measure: 0=Not Assessed/NA 4=Minimal Assistance 1=Total Assistance 5=Supervision or Setup 2=Maximal Assistance 6=Modified [place] 3=Moderate Assistance 7=Complete IndependenceSCALE: Activities may be completed with or without assistive devices. 5-Xvvsiawebd-elxsqap completes the activity by him/herself with no assistance from a helper. 5-Set-up or Clean-up Assistance-helper sets up or cleans up; patient completes activity. [place] assists only prior to or following the activity. 4-Supervision or Touching Assistance-helper provides verbal cues and/or touching/steadying and/or contact guard assistance as patient completes activity. Assistance may be provided throughout the activity or intermittently. 3-Partial/Moderate Assistance-helper does LESS THAN HALF the effort. [place] lifts, holds or supports trunk or limbs, but provides less than half the effort. 2-Substantial/Maximal Assistance-helper does MORE THAN HALF the effort. [place] lifts or holds trunk or limbs and provides more than half the effort. 8-Hrodrryng-javbkq does ALL the effort. Patient does none of the effort to complete the activity. Or, the assistance of 2 or more helpers is required for the patient to complete the activity. If activity was not attempted, code reason: 7-Patient Refused. 9-Not Applicable-not attempted and the patient did not perform the activity before the current illness, exacerbation or injury. 10-Not Attempted due to Environmental Limitations-(lack of equipment, weather restraints, etc.). 88-Not Attempted due to Medical Conditions or Safety Concerns. Eating (QC): 6 Oral Hygiene (QC): 6 (Independent at sink from wheelchair level.) Shower/Bathe Self (QC): 1 (Pt. still requires use of sit-stand lift to have bottom cleansed thoroughly.) Upper Body Dressing (QC): 5 (Set up) Lower Body Dressing (QC): 2 (Pt. able to lean side to side in chair enough to pull pants over hips. Requires max assist however from OT to do so more thoroughly.) On/Off Footwear: 3 Toileting Hygiene (QC): 1 (With use of sit-stand lift for proper yo cleansing.) Toilet Transfer (QC): 1 (Sit-stand lift.) Other Treatment Pt. agrees to ADLs this date. Still unable to stand on his own without max assistance and bar to pull up on. After ADLs, pt. is able to self propel wheelchair to therapy gym. Completes 10 minutes on arm bike at mod resistance for increased overall strengthening. Practices standing at bar with max assist needed to pull up, as well as cues to scoot out of chair. Pt. is able to do this twice, with min assist in stance for balance. Stands approximately 1- 2minutes. Pt. propels back to room with all needs met. OT utilizes sit-stand lift to transfer pt. back to reclining chair in room. All needs met. Education OT Patient Education: Correct positioning, Exercise program, Modified ADL techniques, Progress toward Goal/Update tx plan, Purpose of tx/functional activities, Reviewed precautions, Rehab process, Transfer techniques Teaching Recipient: Patient Teaching Methods: Demonstration, Discussion Response to Teaching: Verbalize Understanding, Return Demonstration OT Short Term Goals Short Term Goals Time Frame: Dec 11, 2020 Eatin Oral hygiene: 88 Toileting hygiene: 2 Shower/bathe self: 3 Upper body dressin Lower body dressin Putting on/taking off footwear: 6 OT Skilled Nursing Goals Skilled Nursing Goals Time Frame: Dec 25, 2020 Eating (QC): 6 Oral Hygiene (QC): 6 Toileting Hygiene (QC): 5 Shower/Bathe Self (QC): 5 Upper Body Dressing (QC): 6 Lower Body Dressing (QC): 4 On/Off Footwear (QC): 6 Additional Goals: 1-Demonstrate ADL Tasks, 2-Verbalize Understanding, 3-ImproveStrength/Erick 1=Demonstrate adherence to instructed precautions during ADL tasks. 2=Patient will verbalize/demonstrate understanding of assistive devices/modifications for ADL. 3=Patient will improve strength/tolerance for activity to enable patient to perform ADL's. OT Education/Plan Problem List/Assessment Assessment: Decreased Activ Tolerance, Decreased UE Strength, Dependent Transfers, Impaired Bed Mobility, Impaired Funct Balance, Impaired I ADL's, Impaired Self-Care Skills, Restricted Funct UE ROM Discharge Recommendations Plan/Recommendations: Continue POC Therapy Discharge Recommendati: 24 Hour Supervision, Post Acute OT Treatment Plan/Plan of Care Treatment,Training & Education: Yes Patient would benefit from OT for education, treatment and training to promote independence in ADL's, mobility, safety and/or upper extremity function for ADL's. Plan of Care: ADL Retraining, Caregiver Training, Concurrent Therapy, Functional Mobility, Group Exercise/Act as Ind, UE Funct Exercise/Act, UE Neuromus Re-Ed/Coord, W/C Management Training Treatment Duration: Dec 25, 2020 Frequency: Modified Program (IRF) Estimated Hrs Per Day: 1.5 hours per day Agreement: Yes Rehab Potential: Fair Time/GCodes Start Time: 09:30 Stop Time: 10:30 Total Time Billed (hr/min): 60 Billed Treatment Time 1, ADL x 30minutes, FA x 15minutes, Ex x 15minutes CAMILA SINCLAIR OT Dec 23, 2020 14:36
--- NOTE | 2020-12-23 14:43 | Occupational Ther Daily Note ---
OT Current Status-Daily Note Subjective No pain reported. Mental Status/Objective Patient Orientation: Person, Place Attachments: Oxygen ADL-Treatment Therapy Code Descriptions/Definitions Functional [place] Measure: 0=Not Assessed/NA 4=Minimal Assistance 1=Total Assistance 5=Supervision or Setup 2=Maximal Assistance 6=Modified [place] 3=Moderate Assistance 7=Complete IndependenceSCALE: Activities may be completed with or without assistive devices. 6-Cugpkfyuvx-fckgacw completes the activity by him/herself with no assistance from a helper. 5-Set-up or Clean-up Assistance-helper sets up or cleans up; patient completes activity. [place] assists only prior to or following the activity. 4-Supervision or Touching Assistance-helper provides verbal cues and/or touching/steadying and/or contact guard assistance as patient completes activity. Assistance may be provided throughout the activity or intermittently. 3-Partial/Moderate Assistance-helper does LESS THAN HALF the effort. [place] lifts, holds or supports trunk or limbs, but provides less than half the effort. 2-Substantial/Maximal Assistance-helper does MORE THAN HALF the effort. [place] lifts or holds trunk or limbs and provides more than half the effort. 7-Woyfozzld-ihjjly does ALL the effort. Patient does none of the effort to complete the activity. Or, the assistance of 2 or more helpers is required for the patient to complete the activity. If activity was not attempted, code reason: 7-Patient Refused. 9-Not Applicable-not attempted and the patient did not perform the activity before the current illness, exacerbation or injury. 10-Not Attempted due to Environmental Limitations-(lack of equipment, weather restraints, etc.). 88-Not Attempted due to Medical Conditions or Safety Concerns. Other Treatment Pt. up in chair. States that he is frustrated, as he is attempting to make appointments for eye DrFloyd and dentist. Pt. becomes confused as to who he has called and made appointment with, and where their practice is located. OT works on this with him. OT assists him to find eye in [place] as well as possible dentist to have new dentures made. Pt. is discharging tomorrow to Skilled unit and will be making new appointments for later after discharge. All needs met up in chair and lunch arrives. Pt. able to set up his own tray and eat with no difficulty. Pt. also verbalizes understanding of HEP with red theraband for continued strengthening. All needs met. Education OT Patient Education: Correct positioning, Exercise program, Modified ADL techniques, Progress toward Goal/Update tx plan, Purpose of tx/functional activities, Reviewed precautions, Rehab process Teaching Recipient: Patient Teaching Methods: Demonstration, Discussion Response to Teaching: Verbalize Understanding, Return Demonstration OT Short Term Goals Short Term Goals Time Frame: Dec 11, 2020 Eatin Oral hygiene: 88 Toileting hygiene: 2 Shower/bathe self: 3 Upper body dressin Lower body dressin Putting on/taking off footwear: 6 OT Placement Specialist Goals Senior Care Goals Time Frame: Dec 25, 2020 Eating (QC): 6 Oral Hygiene (QC): 6 Toileting Hygiene (QC): 5 Shower/Bathe Self (QC): 5 Upper Body Dressing (QC): 6 Lower Body Dressing (QC): 4 On/Off Footwear (QC): 6 Additional Goals: 1-Demonstrate ADL Tasks, 2-Verbalize Understanding, 3-ImproveStrength/Erick 1=Demonstrate adherence to instructed precautions during ADL tasks. 2=Patient will verbalize/demonstrate understanding of assistive devices/modifications for ADL. 3=Patient will improve strength/tolerance for activity to enable patient to perform ADL's. OT Education/Plan Problem List/Assessment Assessment: Decreased Activ Tolerance, Decreased UE Strength, Dependent Transfers, Impaired Funct Balance, Impaired I ADL's, Impaired Self-Care Skills, Restricted Funct UE ROM Discharge Recommendations Plan/Recommendations: Continue POC Therapy Discharge Recommendati: 24 Hour Supervision, Post Acute OT Treatment Plan/Plan of Care Treatment,Training & Education: Yes Patient would benefit from OT for education, treatment and training to promote independence in ADL's, mobility, safety and/or upper extremity function for ADL's. Plan of Care: ADL Retraining, Caregiver Training, Concurrent Therapy, Functional Mobility, Group Exercise/Act as Ind, UE Funct Exercise/Act, UE Neuromus Re-Ed/Coord, W/C Management Training Treatment Duration: Dec 25, 2020 Frequency: Modified Program (IRF) Estimated Hrs Per Day: 1.5 hours per day Agreement: Yes Rehab Potential: Fair Time/GCodes Start Time: 11:45 Stop Time: 12:00 Total Time Billed (hr/min): 15 Billed Treatment Time 1, ADL CAMILA SINCLAIR OT Dec 23, 2020 14:43
[2020-12-23 16:00] VITALS: BP 114/67
[2020-12-23] MEDS ORDERED: SALI45SP MM (20:53)
[2020-12-23] MEDS ORDERED: MIRT-47 PO (20:53)
[2020-12-23] MEDS ORDERED: GABA-486 PO (20:53)
[2020-12-23] MEDS ORDERED: ONDA4TAB11 PO (20:53)
[2020-12-23] MEDS ORDERED: CHOL10002 PO (20:53)
[2020-12-23] MEDS ORDERED: METO50TA15 PO (20:53)
[2020-12-23] MEDS ORDERED: LOSA25TA41 PO (20:53)
[2020-12-23] MEDS ORDERED: SODI44SP2 NS (20:53)
[2020-12-23] MEDS ORDERED: SENN-20 PO (20:53)
[2020-12-23] MEDS ORDERED: PANT40TA52 PO (20:53)
[2020-12-23] MEDS ORDERED: MELA3TAB39 PO (20:53)
[2020-12-23] MEDS ORDERED: ZINC28PA TOP (20:53)
[2020-12-23] MEDS ORDERED: INSU100V5 SQ (20:53)
[2020-12-23] MEDS ORDERED: INSU100V16 SC (20:53)
[2020-12-23] MEDS ORDERED: ASPI-999 PO (20:53)
[2020-12-23] MEDS ORDERED: PRD10T PO (20:53)
[2020-12-23] MEDS ORDERED: OXC5T PO ×2 (20:53)
[2020-12-23] MEDS ORDERED: APIX5TAB PO (20:53)
--- NOTE | 2020-12-23 20:54 | Discharge Inst-Skilled Nursing ---
Discharge Inst-Skilled NF Reconcile Patient Problems Problems Reviewed?: Yes Patient Instructions Patient Problems: COVID-19 DM RICHY on CPAP Consult/Follow Up/Orders Follow Up Appt.: PCP 1 week Skilled NF Admit to: Certification (SNF) I certify that SNF services are required to be given on an inpatient basis because of the above named patient's need for longterm care on a continuing basis for the conditions(s) for which he/she was receiving inpatient hospital services prior to his/her transfer to the SNF. [facility] Facility Order: Nursing Services, Pattern Generator Operator-Evaluate & Treat, Physical Therapy-Evaluate & Treat Oxygen Delivery Method: Nasal Cannula Discharge Diet: ADA Diet Resuscitation Status: Full Code New & Resume Previous Orders New Medications: Apixaban (Eliquis) 5 Mg Tablet 5 MG PO BID for 365 Days, TAB Aspirin (Aspirin) 81 Mg Tab.chew 162 MG PO DAILY for 355 Days, TAB Cholecalciferol (Vitamin D3) (Vitamin D3) 25 Mcg Tablet 25 MCG PO DAILY for 30 Days, TAB Gabapentin (Gabapentin) 100 Mg Capsule 100 MG PO TID for 365 Days, CAP Insulin Aspart (Novolog) 100 Unit/1 Ml Susp 0 UNIT SC ACHS for 30 Days, ML Insulin Determir (Levemir) 1,000 Units/10 Ml Soln 20 UNIT SQ BID for 30 Days, EA Losartan Potassium (Losartan Potassium) 25 Mg Tablet 25 MG PO DAILY for 365 Days, TAB Melatonin (Melatonin) 3 Mg Tablet 6 MG PO HS for 30 Days, TAB Metoprolol Tartrate (Metoprolol Tartrate) 50 Mg Tablet 50 MG PO BID for 365 Days, TAB Mirtazapine (Mirtazapine) 15 Mg Tab.rapdis 15 MG PO HS for 30 Days, TAB Ondansetron (Ondansetron Odt) 4 Mg Tab.rapdis 4 MG PO Q6H PRN for NAUSEA/VOMITING-1ST LINE for 30 Days, TAB Oxycodone Hcl (Oxyir Tablet) 5 Mg Tab 5 MG PO HS, #30 TAB Oxycodone Hcl (Oxyir Tablet) 5 Mg Tab 5 MG PO Q8H PRN for PAIN-SEVERE (8-10), #15 TAB Pantoprazole Sodium (Pantoprazole Sodium) 40 Mg Tablet.dr 40 MG PO DAILY for 30 Days, TAB Prednisone (Prednisone) 10 Mg Tab 20 MG PO DAILY@0800 for 30 Days, TAB Saliva Stimulant Agents Comb.3 (Biotene Moisturizing Mouth) 1 Each [place] 0 EACH MM QID for 30 Days, SPRAY Sennosides/Docusate Sodium (Senna-Time S Tablet) 1 Each Tablet 1 EA PO BID for 30 Days, TAB Sodium Chloride (Deep Sea) 44 Ml [place] 0 ML NS TID for 30 Days, SPRAY Zinc Oxide (Boudreauxs) 28 Gm Oint 0 GM TOP NEEDED PRN for DIAPER CHANGE for 30 Days, TUBE Continued Medications: Acetaminophen (Tylenol Arthritis) 650 Mg Tablet.er 650 MG PO Q6H PRN for PAIN-MILD (1-4) OR TEMPATURE, TAB Ascorbic Acid (Vitamin C) 500 Mg Capsule 1000 MG PO BID, CAP TAKES 2 (500MG) CAPS Cyanocobalamin (Vitamin B-12) (Vitamin B-12) 250 Mcg Tablet 250 MCG PO DAILY, TAB Finasteride (Finasteride) 5 Mg Tablet 5 MG PO DAILY, TAB Fluticasone Propionate (Flonase Allergy Relief) 9.9 Ml Coleman.susp 1 SPRAY NS DAILY, EACH Fluticasone/Umeclidin/Vilanter (Trelegy Ellipta 100-62.5-25) 1 Each Blst.w.dev 1 EACH IH DAILY Ipratropium/Albuterol Sulfate (Iprat-Albut 0.5-3(2.5) mg/3 ml) 3 Ml Ampul.neb 3 ML IH Q6H PRN for SHORTNESS OF BREATH, EACH Simvastatin (Simvastatin) 40 Mg Tablet 40 MG PO HS, TAB Tamsulosin HCl (Flomax) 0.4 Mg Cap 0.4 MG PO DAILY, CAP Discontinued Medications: Apixaban (Eliquis) 2.5 Mg Tablet 2.5 MG PO BID, TAB Gabapentin (Neurontin) 300 Mg Capsule 300 MG PO HS, CAP Omeprazole (Omeprazole) 20 Mg Tablet.dr 20 MG PO DAILY, TAB Triamterene/Hydrochlorothiazid (Triamterene-Hctz 37.5-25 mg Tb) 1 Each Tablet 1 EACH PO DAILY, TAB Zinc (Zinc) 50 Mg Tablet 50 MG PO DAILY, TAB Gracie Dawkins Dec 23, 2020 20:53 GRACIE DAWKINS DO Dec 23, 2020 20:54
[2020-12-23] MEDS: MIRTAZAPINE 15 MG (REMERON) TAB PO SCH (21:16)
[2020-12-23] MEDS: MELATONIN 3 MG TABLET PO SCH (21:17)
[2020-12-24 05:02] VITALS: BP 130/65
[2020-12-24] MEDS: inSUlin ASPART (NovoLOG) 1 UNIT/0.01 ML (CHARGE PER UNIT) SC SCH ×4 (05:02→20:41)
[2020-12-24] MEDS: CATHETER FLUSH 10 ML SYR IV SCH ×3 (05:33→20:42)
[2020-12-24] MEDS: ADVAIR HFA 115/21 MCG INHALER 8 GM IH SCH ×2 (06:57→19:41)
[2020-12-24] MEDS: UMECLIDINIUM BROMIDE (INCRUSE ELLIPTA) 7'S IH SCH (06:57)
[2020-12-24] MEDS: predniSONE 10 MG TAB PO SCH (08:15)
[2020-12-24] MEDS: PANTOPRAZOLE 40 MG (PROTONIX) TAB PO SCH (08:16)
[2020-12-24] MEDS: LOSARTAN 25 MG (COZAAR) TAB PO SCH (08:16)
[2020-12-24] MEDS: VITAMIN D3 25 MCG (1,000 UNITS) TABLET PO SCH (08:16)
[2020-12-24] MEDS: meTOprolol TARTRATE 50 MG (LOPRESSOR) TAB PO SCH ×2 (08:16→20:41)
[2020-12-24] MEDS: ASCORBIC ACID (VIT C) 500 MG TABLET PO SCH ×2 (08:16→16:48)
[2020-12-24] MEDS: GABAPENTIN 100 MG (NEURONTIN) CAP PO SCH ×3 (08:16→20:41)
[2020-12-24] MEDS: TAMSULOSIN 0.4 MG (FLOMAX) CAP PO SCH (08:16)
[2020-12-24] MEDS: ASPIRIN 81 MG CHEW (CHILDREN'S ASA) PO SCH (08:16)
[2020-12-24] MEDS: APIXABAN 5 MG (ELIQUIS) TABLET PO SCH ×2 (08:16→20:41)
[2020-12-24] MEDS: FINASTERIDE (PROSCAR) 5 MG TAB PO SCH (08:16)
[2020-12-24] MEDS: ACETAMINOPHEN 325 MG TABLET PO SCH ×3 (08:16→20:40)
[2020-12-24] MEDS: FLUTICASONE NASAL SPRAY (FLONASE) 16 GM BTL NS SCH (08:17)
[2020-12-24] MEDS: SALIVA STIMULANT MOUTH SPRAY (BIOTENE) 1.5 OZ MM SCH ×4 (08:17→20:39)
[2020-12-24] MEDS: DOCUSATE SODIUM 100 MG (COLACE) CAP PO SCH ×2 (08:49→20:39)
[2020-12-24] MEDS: polyethylene glycoL POWDER 17 GM (MIRALAX) PACK PO SCH ×2 (08:49→20:40)
[2020-12-24] MEDS: SALINE NASAL SPRAY (OCEAN) 45 ML BTL NS SCH ×3 (08:49→20:39)
[2020-12-24] MEDS: SENNA W/DOCUSATE (SENOKOT S) TABLET PO SCH ×2 (08:50→20:40)
--- NOTE | 2020-12-24 09:10 | Cardiology Progress Note ---
Subjective Date Seen by Provider: Dec 24, 2020 Time Seen by Provider: 09:09 Subjective/Events-last exam Patient is sitting up in chair, no new complaints. Denies any chest pain and dyspnea. Objective-Cardiology Exam Last Set of Vital Signs Vital Signs 12/24/20 12/24/20 12/24/20 05:02 06:57 08:35 Temp 36.0 Pulse 60 Resp 18 B/P (MAP) 130/65 (86) Pulse Ox 92 O2 Delivery Nasal Cannula O2 Flow Rate 4.00 Capillary Refill : I&O Intake and Output 12/24/20 00:00 Intake Total 2330 ml Output Total 1550 ml Balance 780 ml Intake Oral 2330 ml Output Urine Total 1550 ml # Voids 4 # Bowel Movements 2 General: Alert, Oriented X3, Cooperative HEENT: Atraumatic, PERRLA Neck: Supple, No JVD, No Thyromegaly Lungs: Clear to Auscultation, Normal Air Movement Heart: Normal S1, Normal S2, No Murmurs, Other (irregularly irregular) Abdomen: Normal Bowel Sounds, Soft, No Tenderness, No Hepatosplenomegaly, No Masses Extremities: No Clubbing, No Cyanosis Skin: No Rashes, No Significant Lesion Neuro: Normal Speech, Cranial Nerves 3-12 NL Psych/Mental Status: Mental Status NL, Mood NL A/P-Cardiology Admission Diagnosis Afib HTN HLP DM Assessment/Plan Atrial fibrillation with controlled ventricular rate, maintained on Eliquis, continue to monitor. Hypertension, better control at this time. 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 Dawkins Critical illness myopathy, COVID-19, continue PT/OT RICHY, treated with CPAP, managed by Dr Dawkins Patient was seen and evaluated with Rhona, examination performed, management plan was discussed, agree with the current scribed note, I made few changes to the note using Italic font Patient was feeling well. continue current medication, no changes Okay for discharge from cardiology standpoint RHONA MARTINEZ Dec 24, 2020 09:10 JOSE MARIA QUEZADA MD Dec 24, 2020 13:01
--- NOTE | 2020-12-24 09:11 | Discharge Summary ---
Diagnosis/Chief Complaint Date of Admission Dec 04, 2020 at 15:15 Date of Discharge Discharge Date: Dec 24, 2020 Discharge Summary Discharge Physical Examination Allergies: Coded Allergies: No Allergy Information Available (Unverified , 12/04/20) Vitals & I&Os Vital Signs Date Time Temp Pulse Resp B/P (MAP) Pulse Ox O2 Delivery O2 Flow Rate FiO2 12/24/20 20:05 Nasal Cannula 4.00 12/24/20 19:41 92 12/24/20 16:00 36.4 102 20 141/80 (100) Hospital Course Labs (last 24 hrs) Laboratory Tests 12/04/20 20:46: Glucometer 227H 12/05/20 05:09: Glucometer 111H 12/05/20 06:50: White Blood Count 21.5H, Red Blood Count 3.98L, Hemoglobin 11.7L, Hematocrit 35L , Mean Corpuscular Volume 88, Mean Corpuscular Hemoglobin 29, Mean Corpuscular Hemoglobin Concent 34, Red Cell Distribution Width 18.8H, Platelet Count 174, Mean Platelet Volume 9.7, Immature Granulocyte % (Auto) 3, Neutrophils (%) (Auto) 86H, Lymphocytes (%) (Auto) 5L, Monocytes (%) (Auto) 6, Eosinophils (%) (Auto) 0, Basophils (%) (Auto) 0, Neutrophils # (Auto) 18.5H, Lymphocytes # (Auto) 1.0, Monocytes # (Auto) 1.2H, Eosinophils # (Auto) 0.0, Basophils # (Auto) 0.0, Immature Granulocyte # (Auto) 0.7H, Neutrophils % (Manual) 90, Lymphocytes % (Manual) 4, Monocytes % (Manual) 6, Eosinophils % (Manual) 0, Baso phils % (Manual) 0, Band Neutrophils 0, Polychromasia SLIGHT, Anisocytosis MODERATE, Sodium Level 133L, Potassium Level 4.3, Chloride Level 98, Carbon Dioxide Level 25, Anion Gap 10, Blood Urea Nitrogen 28H, Creatinine 0.79, Estimat Glomerular Filtration Rate > 60, BUN/Creatinine Ratio 35, Glucose Level 108H, Calcium Level 9.0, Corrected Calcium 9.6, Total Bilirubin 0.8, Aspartate Amino Transf (AST/SGOT) 27, Alanine Aminotransferase (ALT/SGPT) 65H, Alkaline Phosphatase 85, Total Protein 5.5L, Albumin 3.2, Procalcitonin 0.10H 12/05/20 10:48: Glucometer 154H 12/05/20 16:45: Glucometer 327H 12/05/20 20:51: Glucometer 250H 12/06/20 06:27: Glucometer 54*L 12/06/20 10:54: Glucometer 246H 12/06/20 16:12: Glucometer 276H 12/06/20 20:06: Glucometer 296H 12/07/20 06:25: Glucometer 153H 12/07/20 10:40: Glucometer 205H 12/07/20 15:36: Glucometer 331H 12/07/20 20:26: Glucometer 323H 12/08/20 05:25: Glucometer 174H 12/08/20 10:38: Glucometer 225H 12/08/20 16:16: Glucometer 240H 12/08/20 20:06: Glucometer 295H 12/09/20 04:30: White Blood Count 8.4, Red Blood Count 3.33L, Hemoglobin 9.5L, Hematocrit 30L, Mean Corpuscular Volume 90, Mean Corpuscular Hemoglobin 29, Mean Corpuscular Hemoglobin Concent 32, Red Cell Distribution Width 19.7H, Platelet Count 97L, Mean Platelet Volume 9.4, Immature Granulocyte % (Auto) 2, Neutrophils (%) (Auto) 84H, Lymphocytes (%) (Auto) 7L, Monocytes (%) (Auto) 7, Eosinophils (%) (Auto) 0, Basophils (%) (Auto) 0, Neutrophils # (Auto) 7.1, Lymphocytes # (Auto) 0.6L, Monocytes # (Auto) 0.6, Eosinophils # (Auto) 0.0, Basophils # (Auto) 0.0, Immature Granulocyte # (Auto) 0.2H, Sodium Level 141, Potassium Level 4.6, Chloride Level 102, Carbon Dioxide Level 30, Anion Gap 9, Blood Urea Nitrogen 22H, Creatinine 0.81, Estimat Glomerular Filtration Rate > 60, BUN/Creatinine Ratio 27, Glucose Level 158H, Calcium Level 8.9, Corrected Calcium 9.6, Total Bilirubin 0.5, Aspartate Amino Transf (AST/SGOT) 23, Alanine Aminotransferase (ALT/SGPT) 70H, Alkaline Phosphatase 70, Total Protein 5.3L, Albumin 3.1L 12/09/20 05:32: Glucometer 147H 12/09/20 10:48: Glucometer 312H 12/09/20 15:29: Glucometer 266H 12/09/20 20:28: Glucometer 277H 12/10/20 05:09: Glucometer 181H 12/10/20 10:58: Glucometer 195H 12/10/20 16:18: Glucometer 257H 12/10/20 20:41: Glucometer 332H 12/11/20 05:10: Glucometer 197H 12/11/20 11:03: Glucometer 172H 12/11/20 16:04: Glucometer 407*H 12/11/20 20:41: Glucometer 271H 12/12/20 05:14: Glucometer 139H 12/12/20 11:38: Glucometer 197H 12/12/20 15:33: Glucometer 298H 12/12/20 20:01: Glucometer 243H 12/13/20 05:10: Glucometer 100 12/13/20 10:57: Glucometer 353H 12/13/20 15:40: Glucometer 266H 12/13/20 20:10: Glucometer 301H 12/14/20 05:24: Glucometer 171H 12/14/20 11:07: Glucometer 222H 12/14/20 15:41: Glucometer 333H 12/14/20 21:15: Glucometer 205H 12/15/20 05:24: Glucometer 130H 12/15/20 11:38: Glucometer 226H 12/15/20 15:08: Glucometer 305H 12/15/20 20:20: Glucometer 288H 12/16/20 05:00: White Blood Count 7.5, Red Blood Count 3.04L, Hemoglobin 8.9L, Hematocrit 28L, Mean Corpuscular Volume 92, Mean Corpuscular Hemoglobin 29, Mean Corpuscular Hemoglobin Concent 32, Red Cell Distribution Width 20.1H, Platelet Count 126L, Mean Platelet Volume 9.1, Immature Granulocyte % (Auto) 5, Neutrophils (%) (Auto) 76H, Lymphocytes (%) (Auto) 10L, Monocytes (%) (Auto) 9, Eosinophils (%) (Auto) 0, Basophils (%) (Auto) 0, Neutrophils # (Auto) 5.7, Lymphocytes # (Auto) 0.8L, Monocytes # (Auto) 0.7, Eosinophils # (Auto) 0.0, Basophils # (Auto) 0.0, Immature Granulocyte # (Auto) 0.4H, Sodium Level 141, Potassium Level 3.5L, Chloride Level 104, Carbon Dioxide Level 27, Anion Gap 10, Blood Urea Nitrogen 19H, Creatinine 0.80, Estimat Glomerular Filtration Rate > 60, BUN/Creatinine Ratio 24, Glucose Level 147H, Calcium Level 8.6, Corrected Calcium 9.4, Total Bilirubin 0.4, Aspartate Amino Transf (AST/SGOT) 12, Alanine Aminotransferase (ALT/SGPT) 44, Alkaline Phosphatase 64, Total Protein 5.2L, Albumin 3.0L 12/16/20 10:53: Glucometer 250H 12/16/20 15:33: Glucometer 214H 12/16/20 20:41: Glucometer 315H 12/17/20 05:50: Glucometer 195H 12/17/20 11:24: Glucometer 167H 12/17/20 16:10: Glucometer 307H 12/17/20 20:10: Glucometer 210H 12/18/20 06:02: Glucometer 127H 12/18/20 12:25: Glucometer 257H 12/18/20 16:24: Glucometer 264H 12/18/20 20:45: Glucometer 254H 12/19/20 05:11: Glucometer 157H 12/19/20 11:05: Glucometer 192H 12/19/20 16:10: Glucometer 274H 12/19/20 21:39: Glucometer 213H 12/20/20 05:34: Glucometer 150H 12/20/20 10:51: Glucometer 265H 12/20/20 15:29: Glucometer 262H 12/20/20 20:18: Glucometer 286H 12/21/20 05:37: Glucometer 115H 12/21/20 10:58: Glucometer 141H 12/21/20 16:12: Glucometer 305H 12/21/20 20:06: Glucometer 176H 12/22/20 05:31: Glucometer 121H 12/22/20 10:50: Glucometer 142H 12/22/20 15:31: Glucometer 292H 12/22/20 20:05: Glucometer 223H 12/23/20 04:58: White Blood Count 7.1, Red Blood Count 3.16L, Hemoglobin 9.3L, Hematocrit 30L, Mean Corpuscular Volume 95, Mean Corpuscular Hemoglobin 29, Mean Corpuscular Hemoglobin Concent 31L, Red Cell Distribution Width 20.5H, Platelet Count 260, Mean Platelet Volume 9.6, Immature Granulocyte % (Auto) 7, Neutrophils (%) (Auto) 67, Lymphocytes (%) (Auto) 12, Monocytes (%) (Auto) 13H, Eosinophils (%) (Auto) 0, Basophils (%) (Auto) 1, Neutrophils # (Auto) 4.8, Lymphocytes # (Auto) 0.9L, Monocytes # (Auto) 0.9, Eosinophils # (Auto) 0.0, Basophils # (Auto) 0.0, Immature Granulocyte # (Auto) 0.5H, Sodium Level 143, Potassium Level 4.3, Chloride Level 104, Carbon Dioxide Level 28, Anion Gap 11, Blood Urea Nitrogen 19H, Creatinine 0.87, Estimat Glomerular Filtration Rate > 60, BUN/Creatinine Ratio 22, Glucose Level 130H, Calcium Level 9.1, Corrected Calcium 9.7, Total Bilirubin 0.4, Aspartate Amino Transf (AST/SGOT) 15, Alanine Aminotransferase ( ALT/SGPT) 36, Alkaline Phosphatase 51, Total Protein 5.8L, Albumin 3.3 12/23/20 11:01: Glucometer 130H 12/23/20 15:41: Glucometer 238H 12/23/20 20:29: Glucometer 192H 12/24/20 04:42: Glucometer 119H 12/24/20 10:51: Glucometer 169H 12/24/20 15:21: Glucometer 265H 12/24/20 20:27: Glucometer 208H 12/25/20 05:23: Glucometer 169H Pending Labs Laboratory Tests 12/04/20 20:46: Glucometer 227 12/05/20 05:09: Glucometer 111 12/05/20 06:50: White Blood Count 21.5, Red Blood Count 3.98, Hemoglobin 11.7, Hematocrit 35, Mean Corpuscular Volume 88, Mean Corpuscular Hemoglobin 29, Mean Corpuscular Hemoglobin Concent 34, Red Cell Distribution Width 18.8, Platelet Count 174, Mean Platelet Volume 9.7, Immature Granulocyte % (Auto) 3, Neutrophils (%) (Auto) 86, Lymphocytes (%) (Auto) 5, Monocytes (%) (Auto) 6, Eosinophils (%) (Auto) 0, Basophils (%) (Auto) 0, Neutrophils # (Auto) 18.5, Lymphocytes # (Auto) 1.0, Monocytes # (Auto) 1.2, Eosinophils # (Auto) 0.0, Basophils # (Auto) 0.0, Immature Granulocyte # (Auto) 0.7, Neutrophils % (Manual) 90, Lymphocytes % (Manual) 4, Monocytes % (Manual) 6, Eosinophils % (Manual) 0, Basophils % (Manual) 0, Band Neutrophils 0, Polychromasia SLIGHT, Anisocytosis MODERATE, Sodium Level 133, Potassium Level 4.3, Chloride Level 98, Carbon Dioxide Level 25, Anion Gap 10, Blood Urea Nitrogen 28, Creatinine 0.79, Estimat Glomerular Filtration Rate > 60, BUN/Creatinine Ratio 35, Glucose Level 108, Calcium Level 9.0, Corrected Calcium 9.6, Total Bilirubin 0.8, Aspartate Amino Transf (AST/SGOT) 27, Alanine Aminotransferase (ALT/SGPT) 65, Alkaline Phosphatase 85, Total Protein 5.5, Albumin 3.2, Procalcitonin 0.10 12/05/20 10:48: Glucometer 154 12/05/20 16:45: Glucometer 327 12/05/20 20:51: Glucometer 250 12/06/20 06:27: Glucometer 54 12/06/20 10:54: Glucometer 246 12/06/20 16:12: Glucometer 276 12/06/20 20:06: Glucometer 296 12/07/20 06:25: Glucometer 153 12/07/20 10:40: Glucometer 205 12/07/20 15:36: Glucometer 331 12/07/20 20:26: Glucometer 323 12/08/20 05:25: Glucometer 174 12/08/20 10:38: Glucometer 225 12/08/20 16:16: Glucometer 240 12/08/20 20:06: Glucometer 295 12/09/20 04:30: White Blood Count 8.4, Red Blood Count 3.33, Hemoglobin 9.5, Hematocrit 30, Mean Corpuscular Volume 90, Mean Corpuscular Hemoglobin 29, Mean Corpuscular Hemoglobin Concent 32, Red Cell Distribution Width 19.7, Platelet Count 97, Mean Platelet Volume 9.4, Immature Granulocyte % (Auto) 2, Neutrophils (%) (Auto) 84, Lymphocytes (%) (Auto) 7, Monocytes (%) (Auto) 7, Eosinophils (%) (Auto) 0, Basophils (%) (Auto) 0, Neutrophils # (Auto) 7.1, Lymphocytes # (Auto) 0.6, Monocytes # (Auto) 0.6, Eosinophils # (Auto) 0.0, Basophils # (Auto) 0.0, Immature Granulocyte # (Auto) 0.2, Sodium Level 141, Potassium Level 4.6, Chloride Level 102, Carbon Dioxide Level 30, Anion Gap 9, Blood Urea Nitrogen 22, Creatinine 0.81, Estimat Glomerular Filtration Rate > 60, BUN/Creatinine R atio 27, Glucose Level 158, Calcium Level 8.9, Corrected Calcium 9.6, Total Bilirubin 0.5, Aspartate Amino Transf (AST/SGOT) 23, Alanine Aminotransferase (ALT/SGPT) 70, Alkaline Phosphatase 70, Total Protein 5.3, Albumin 3.1 12/09/20 05:32: Glucometer 147 12/09/20 10:48: Glucometer 312 12/09/20 15:29: Glucometer 266 12/09/20 20:28: Glucometer 277 12/10/20 05:09: Glucometer 181 12/10/20 10:58: Glucometer 195 12/10/20 16:18: Glucometer 257 12/10/20 20:41: Glucometer 332 12/11/20 05:10: Glucometer 197 12/11/20 11:03: Glucometer 172 12/11/20 16:04: Glucometer 407 12/11/20 20:41: Glucometer 271 12/12/20 05:14: Glucometer 139 12/12/20 11:38: Glucometer 197 12/12/20 15:33: Glucometer 298 12/12/20 20:01: Glucometer 243 12/13/20 05:10: Glucometer 100 12/13/20 10:57: Glucometer 353 12/13/20 15:40: Glucometer 266 12/13/20 20:10: Glucometer 301 12/14/20 05:24: Glucometer 171 12/14/20 11:07: Glucometer 222 12/14/20 15:41: Glucometer 333 12/14/20 21:15: Glucometer 205 12/15/20 05:24: Glucometer 130 12/15/20 11:38: Glucometer 226 12/15/20 15:08: Glucometer 305 12/15/20 20:20: Glucometer 288 12/16/20 05:00: White Blood Count 7.5, Red Blood Count 3.04, Hemoglobin 8.9, Hematocrit 28, Mean Corpuscular Volume 92, Mean Corpuscular Hemoglobin 29, Mean Corpuscular Hemoglobin Concent 32, Red Cell Distribution Width 20.1, Platelet Count 126, Mean Platelet Volume 9.1, Immature Granulocyte % (Auto) 5, Neutrophils (%) (Auto) 76, Lymphocytes (%) (Auto) 10, Monocytes (%) (Auto) 9, Eosinophils (%) (Auto) 0, Basophils (%) (Auto) 0, Neutrophils # (Auto) 5.7, Lymphocytes # (Auto) 0.8, Monocytes # (Auto) 0.7, Eosinophils # (Auto) 0.0, Basophils # (Auto) 0.0, Immature Granulocyte # (Auto) 0.4, Sodium Level 141, Potassium Level 3.5, Chloride Level 104, Carbon Dioxide Level 27, Anion Gap 10, Blood Urea Nitrogen 19, Creatinine 0.80, Estimat Glomerular Filtration Rate > 60, BUN/Creatinine Ratio 24, Glucose Level 147, Calcium Level 8.6, Corrected Calcium 9.4, Total Bilirubin 0.4, Aspartate Amino Transf (AST/SGOT) 12, Alanine Aminotransferase (ALT/SGPT) 44, Alkaline Phosphatase 64, Total Protein 5.2, Albumin 3.0 12/16/20 10:53: Glucometer 250 12/16/20 15:33: Glucometer 214 12/16/20 20:41: Glucometer 315 12/17/20 05:50: Glucometer 195 12/17/20 11:24: Glucometer 167 12/17/20 16:10: Glucometer 307 12/17/20 20:10: Glucometer 210 12/18/20 06:02: Glucometer 127 12/18/20 12:25: Glucometer 257 12/18/20 16:24: Glucometer 264 12/18/20 20:45: Glucometer 254 12/19/20 05:11: Glucometer 157 12/19/20 11:05: Glucometer 192 12/19/20 16:10: Glucometer 274 12/19/20 21:39: Glucometer 213 12/20/20 05:34: Glucometer 150 12/20/20 10:51: Glucometer 265 12/20/20 15:29: Glucometer 262 12/20/20 20:18: Glucometer 286 12/21/20 05:37: Glucometer 115 12/21/20 10:58: Glucometer 141 12/21/20 16:12: Glucometer 305 12/21/20 20:06: Glucometer 176 12/22/20 05:31: Glucometer 121 12/22/20 10:50: Glucometer 142 12/22/20 15:31: Glucometer 292 12/22/20 20:05: Glucometer 223 12/23/20 04:58: White Blood Count 7.1, Red Blood Count 3.16, Hemoglobin 9.3, Hematocrit 30, Mean Corpuscular Volume 95, Mean Corpuscular Hemoglobin 29, Mean Corpuscular Hemoglobin Concent 31, Red Cell Distribution Width 20.5, Platelet Count 260, Mean Platelet Volume 9.6, Immature Granulocyte % (Auto) 7, Neutrophils (%) (Auto) 67, Lymphocytes (%) (Auto) 12, Monocytes (%) (Auto) 13, Eosinophils (%) (Auto) 0, Basophils (%) (Auto) 1, Neutrophils # (Auto) 4.8, Lymphocytes # (Auto) 0.9, Monocytes # (Auto) 0.9, Eosinophils # (Auto) 0.0, Basophils # (Auto) 0.0, Immature Granulocyte # (Auto) 0.5, Sodium Level 143, Potassium Level 4.3, Chloride Level 104, Carbon Dioxide Level 28, Anion Gap 11, Blood Urea Nitrogen 19, Creatinine 0.87, Estimat Glomerular Filtration Rate > 60, BUN/Creatinine Ratio 22, Glucose Level 130, Calcium Level 9.1, Corrected Calcium 9.7, Total Bilirubin 0.4, Aspartate Amino Transf (AST/SGOT) 15, Alanine Aminotransferase (ALT/SGPT) 36, Alkaline Phosphatase 51, Total Protein 5.8, Albumin 3.3 12/23/20 11:01: Glucometer 130 12/23/20 15:41: Glucometer 238 12/23/20 20:29: Glucometer 192 12/24/20 04:42: Glucometer 119 12/24/20 10:51: Glucometer 169 12/24/20 15:21: Glucometer 265 12/24/20 20:27: Glucometer 208 12/25/20 05:23: Glucometer 169 Discharge Home Medications: Active Scripts Active Biotene Moisturizing Mouth (Saliva Stimulant Agents Comb.3) 1 Each Byram 0 Each MM QID 30 Days Melatonin 3 Mg Tablet 6 Mg PO HS 30 Days Vitamin D3 (Cholecalciferol (Vitamin D3)) 25 Mcg Tablet 25 Mcg PO DAILY 30 Days Boudreauxs (Zinc Oxide) 28 Gm Oint 0 Gm TOP NEEDED PRN 30 Days Levemir (Insulin Determir) 1,000 Units/10 Ml Soln 20 Unit SQ BID 30 Days Novolog (Insulin Aspart) 100 Unit/1 Ml Susp 0 Unit SC ACHS 30 Days Prednisone 10 Mg Tab 20 Mg PO DAILY@0800 30 Days Pantoprazole Sodium 40 Mg Tablet.dr 40 Mg PO DAILY 30 Days Ondansetron Odt (Ondansetron) 4 Mg Tab.rapdis 4 Mg PO Q6H PRN 30 Days Senna-Time S Tablet (Sennosides/Docusate Sodium) 1 Each Tablet 1 Ea PO BID 30 Days Deep Sea (Sodium Chloride) 44 Ml Byram 0 Ml NS TID 30 Days Mirtazapine 15 Mg Tab.rapdis 15 Mg PO HS 30 Days Gabapentin 100 Mg Capsule 100 Mg PO TID 365 Days Oxyir Tablet (Oxycodone HCl) 5 Mg Tab 5 Mg PO Q8H PRN Oxyir Tablet (Oxycodone HCl) 5 Mg Tab 5 Mg PO HS Aspirin 81 Mg Tab.chew 162 Mg PO DAILY 355 Days Losartan Potassium 25 Mg Tablet 25 Mg PO DAILY 365 Days Metoprolol Tartrate 50 Mg Tablet 50 Mg PO BID 365 Days Eliquis (Apixaban) 5 Mg Tablet 5 Mg PO BID 365 Days Reported Vitamin B-12 (Cyanocobalamin (Vitamin B-12)) 250 Mcg Tablet 250 Mcg PO DAILY Zinc 50 Mg Tablet 50 Mg PO DAILY Triamterene-Hctz 37.5-25 mg Tb (Triamterene/Hydrochlorothiazid) 1 Each Tablet 1 Each PO DAILY Omeprazole 20 Mg Tablet.dr 20 Mg PO DAILY Simvastatin 40 Mg Tablet 40 Mg PO HS Neurontin (Gabapentin) 300 Mg Capsule 300 Mg PO HS Eliquis (Apixaban) 2.5 Mg Tablet 2.5 Mg PO BID Tylenol Arthritis (Acetaminophen) 650 Mg Tablet.er 650 Mg PO Q6H PRN Flomax (Tamsulosin HCl) 0.4 Mg Cap 0.4 Mg PO DAILY Trelegy Ellipta 100-62.5-25 (Fluticasone/Umeclidin/Vilanter) 1 Each Blst.w.dev 1 Each IH DAILY Flonase Allergy Relief (Fluticasone Propionate) 9.9 Ml Byram.susp 1 Byram NS DAILY Finasteride 5 Mg Tablet 5 Mg PO DAILY Vitamin C (Ascorbic Acid) 500 Mg Capsule 1,000 Mg PO BID TAKES 2 (500MG) CAPS Iprat-Albut 0.5-3(2.5) mg/3 ml (Ipratropium/Albuterol Sulfate) 3 Ml Ampul.neb 3 Ml IH Q6H PRN Instructions to patient/family Please see electronic discharge instructions given to patient. Diagnosis/Problems Diagnosis/Problems (1) COVID-19 (2) RICHY on CPAP (3) Obesity (4) Diabetes (5) Hypertension (6) Edema (7) Neuropathy (8) Anemia (9) Advanced age DEANNA BOO DO Dec 24, 2020 09:11
--- NOTE | 2020-12-24 10:37 | PM&R Progress Note ---
Subjective HPI/CC On Admission Date Seen by Provider: Dec 24, 2020 Time Seen by Provider: 09:30 Subjective/Events-last exam 12/24/20: Eyes were better but the more he works on the computer the blurry issues return DC is on hold due to NH processes 12/23/20: Pt doing pretty well Buttock decubitus ulcer needs further treatment Discharge planned for tomorrow Hemaglobin 9.3 Midline will be discontinued at his request 12/22/20: Home O2 evaluation tomorrow for DC Wednesday DM education will be provided DC planned for NH 12/21/20: Doing well Slept well BM today Edema improved on KRIS's Decubitus ulcers worsened due to sitting in chair all day long IS use increased 12/20/20: Now has daily complaints about minor things since he was notified last week he would need a [place] Nurse broke his grabber so will obtain replacement for him Butt paste placed on buttocks Stage 2 No other issues 12/19/20: No major issues Bowels are moving skilled nursing placement on Wednesday12/18/20: Discharge Wednesday to the residential Family training did not go well Son was there but did not engage Insists on going home but that would not be a possibility Placing Alevin on buttock 12/17/20: Family training today at 10:00 Still has a stage 2 buttock decubitus ulcer Overall feels like he is doing much better Son at bedside when I rounded later today and he was evaluating his progress 12/16/20: Pt doing pretty well Bowels moved today Left midline is functioning Blood sugar 147 Stage 2 decubitus ulcer on the buttock Working really hard to stand 12/15/20: Overall doing well No issues BM+ No falls 12/14/20: Doing well BM+ Dyspnea still continues No pain 12/13/20: Patient more alert today and energized No pain reported Oxycodone helps the foot pain Participating with therapy 12/12/20: Pt doing a lot better Having a lot of pain, takes Oxycodone for his foot and leg pain Bowels are moving Sleeping better Pt very well could require a residential since he lives alone and is just not progressing well 12/11/20: No major issues Pretty much has plateaued and not made much progress with ambulation Epistaxis of the left nostril Nasal sprays will be continued Re-check and check with insurance coverage but he very well may need to be in a residential 12/10/20: Pt doing pretty well Slept on and off last night Remains on 4 liters of O2 Swelling in his feel is pretty minimal Did not use his BiPAP last night and that likely is the cause of not sleeping well 12/09/20: Pt slept pretty well Bowels are moving PLTs are 97, 000 Normal WBC down from 21 when he first arrived Denies any significant issues Trying to get strong enough to walk 12/08/20: Slept well last night Remeron and Melatonin has helped him a lot Sinus tachy last night BM 12/06/20 so laxatives given No other issues 12/07/20: Slept better Yonker provided for phlem HR 60 Appreciate Cardiology 4L/min O2 BM 12/06/20 12/06/20: HR 122 Cardiology consulted Sugar 54 so decreasing insulin BM++ No pain reported No sleeping well so added hypnotics of Melatonin and Remeron 12/05/20: Patient doing well Worn out from fatigue Sugars are ok No pain reported Tachycardic so consulting Dr Carranza Midline was accidently pulled out so need a new one placed Checked meds and labs Review of Systems General: Fatigue HEENT: Visual Changes Pulmonary: Dyspnea Neurological: Weakness, Incoordination Objective Exam Vital Signs Vital Signs Date Time Temp Pulse Resp B/P (MAP) Pulse Ox O2 Delivery O2 Flow Rate FiO2 12/24/20 20:05 Nasal Cannula 4.00 12/24/20 19:41 92 12/24/20 16:00 36.4 102 20 141/80 (100) Capillary Refill : General Appearance: No Apparent Distress, WD/WN, Anxious, Chronically ill, Obese HEENT: PERRL/EOMI, Normal ENT Inspection, Pharynx Normal Neck: Full Range of Motion, Normal Inspection, Non Tender, Supple, Carotid Bruit Respiratory: Chest Non Tender, No Accessory Muscle Use, No Respiratory Distress, Crackles, Decreased Breath Sounds Cardiovascular: Regular Rate, Rhythm, No Gallop, No JVD, No Murmur, Normal Peripheral Pulses Gastrointestinal: Normal Bowel Sounds, No Organomegaly, No Pulsatile Mass, Non Tender, Soft Back: Normal Inspection, No CVA Tenderness, No Vertebral Tenderness Extremity: Normal Capillary Refill, Normal Inspection, Normal Range of Motion, Non Tender, No Calf Tenderness, Pedal Edema Neurologic/Psychiatric: Alert, Oriented x3, No Motor/Sensory Deficits, tableau developer II- XII Norm as Tested, Depressed Affect, Motor Weakness Skin: Normal Color, Warm/Dry Lymphatic: No Adenopathy Results/Procedures Lab Patient resulted labs reviewed. FIM Transfers Therapy Code Descriptions/Definitions Functional [place] Measure: 0=Not Assessed/NA 4=Minimal Assistance 1=Total Assistance 5=Supervision or Setup 2=Maximal Assistance 6=Modified [place] 3=Moderate Assistance 7=Complete IndependenceSCALE: Activities may be completed with or without assistive devices. 4-Hajtqbybay-yspiusc completes the activity by him/herself with no assistance from a helper. 5-Set-up or Clean-up Assistance-helper sets up or cleans up; patient completes activity. [place] assists only prior to or following the activity. 4-Supervision or Touching Assistance-helper provides verbal cues and/or touching/steadying and/or contact guard assistance as patient completes activity. Assistance may be provided throughout the activity or intermittently. 3-Partial/Moderate Assistance-helper does LESS THAN HALF the effort. [place] lifts, holds or supports trunk or limbs, but provides less than half the effort. 2-Substantial/Maximal Assistance-helper does MORE THAN HALF the effort. [place] lifts or holds trunk or limbs and provides more than half the effort. 8-Wnkewfrhj-xkhdvi does ALL the effort. Patient does none of the effort to complete the activity. Or, the assistance of 2 or more helpers is required for the patient to complete the activity. If activity was not attempted, code reason: 7-Patient Refused. 9-Not Applicable-not attempted and the patient did not perform the activity before the current illness, exacerbation or injury. 10-Not Attempted due to Environmental Limitations-(lack of equipment, weather restraints, etc.). 88-Not Attempted due to Medical Conditions or Safety Concerns. Roll Left to Right (QC): 6 Sit to Lying (QC): 6 Sit to Stand (QC): 1 Chair/Wls-nc-Jrths Xfer(QC): 1 (sit to stand lift for transfer) Car Transfer (QC): 3 (mod assist for car transfer with partial stand turn) Gait Training Distance: unable to walk outside of // bars Walk 10 feet (QC): 88 Walk 50 ft with 2 Turns(QC): 88 Walk 150 ft (QC): 88 Walking 10ft/uneven surface-QC: 88 Gait Persons Needed: 2 Gait Assistive Device: Parallel Bars Wheelchair Training Wheel 50 ft with 2 turns (QC): 6 Wheel 150 ft (QC): 6 Stair Training 1 Step (curb) (QC): 88 4 Steps (QC): 88 12 Steps (QC): 88 Balance Picking up an Object (QC): 88 ADL-Treatment Eating (QC): 6 Oral Hygiene (QC): 6 (Independent at sink from wheelchair level.) Bathing Location: L Arm, R Arm, L Upper Leg, R Upper Leg, Chest, Abdomen, Perineal Area Shower/Bathe Self (QC): 1 (Pt. still requires use of sit-stand lift to have bottom cleansed thoroughly.) Upper Body Dressing (QC): 5 (Set up) Lower Body Dressing (QC): 2 (Pt. able to lean side to side in chair enough to pull pants over hips. 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 Obesity DM Neuropathy Anemia O2 dependence Plan: IRF protocol Monitor O2 O2 supplement 12/05/20: O2 maintained IRF protocol Cardiology consultation appreciated Midline replacement 12/06/20: Cardiology consult appreciated Decrease insulin Midline Monitor closely 12/07/20: Monitor closely O2 wean Increase acitivity Maintain Remeron and Melatonin 12/08/20: Monitor closely Check labs in am Monitor tachycardia Remeron and Melatonin 12/09/20: Labs normal Improved strength Weaning O2 Monitor insomnia Increase insulin 12/10/20: Monitor O2 Increase strength Severe myopathy of legs 12/11/20: Difficult to progress Continue therapy May need NHP 12/12/20: Pain control with Oxycodone Monitor bowels Monitor O2 12/13/20: Monitor pain Wean O2 CPAP mask seems to be working better 12/14/20: Improved status Stood up today with help O2 12/15/20: Wean O2 Monitor ambulation CPAP at night 12/16/20: Monitor progress Decubitus ulcer management Monitor BP 12/17/20: Family education/training today Monitor O2 CPAP with O2 12/18/20: Monitor O2 NH Wednesday Continue to work on stamina 12/19/20: Monitor O2 CPAP 12/20/20: Decubitus ulcer management Monitor O2 Replace grabber 12/21/20: Monitor O2 KRIS CPAP 12/22/20: DC Wednesday to NH Home O2 evaluation 12/23/20: DC midline DC tomorrow to [place] Needs eye exam soon for blurry vision 12/24/20: DC on hold Monitor O2 (1) COVID-19 (2) RICHY on CPAP (3) Obesity (4) Diabetes (5) Hypertension (6) Edema (7) Neuropathy (8) Anemia (9) Advanced age DEANNA BOO DO Dec 24, 2020 10:36
--- NOTE | 2020-12-24 11:58 | Occupational Ther Daily Note ---
OT Current Status-Daily Note Subjective Pt alert, agrees to therapy. Took over care from OTR/L. No c/o pain. Mental Status/Objective Patient Orientation: Person, Place, Time, Situation Attachments: Oxygen ADL-Treatment Therapy Code Descriptions/Definitions Functional [place] Measure: 0=Not Assessed/NA 4=Minimal Assistance 1=Total Assistance 5=Supervision or Setup 2=Maximal Assistance 6=Modified [place] 3=Moderate Assistance 7=Complete IndependenceSCALE: Activities may be completed with or without assistive devices. 5-Dbfwafjusl-tqnldpp completes the activity by him/herself with no assistance from a helper. 5-Set-up or Clean-up Assistance-helper sets up or cleans up; patient completes activity. [place] assists only prior to or following the activity. 4-Supervision or Touching Assistance-helper provides verbal cues and/or touching/steadying and/or contact guard assistance as patient completes activity. Assistance may be provided throughout the activity or intermittently. 3-Partial/Moderate Assistance-helper does LESS THAN HALF the effort. [place] lifts, holds or supports trunk or limbs, but provides less than half the effort. 2-Substantial/Maximal Assistance-helper does MORE THAN HALF the effort. [place] lifts or holds trunk or limbs and provides more than half the effort. 8-Nixhwonkp-volnxv does ALL the effort. Patient does none of the effort to complete the activity. Or, the assistance of 2 or more helpers is required for the patient to complete the activity. If activity was not attempted, code reason: 7-Patient Refused. 9-Not Applicable-not attempted and the patient did not perform the activity before the current illness, exacerbation or injury. 10-Not Attempted due to Environmental Limitations-(lack of equipment, weather restraints, etc.). 88-Not Attempted due to Medical Conditions or Safety Concerns. Other Treatment Co-treat with PT ([id number]), skills of 2 clinicians required due to increased O2 need, decreased activity tolerance and fall risk. PT focusing on transfers, ambulation and balance while OT focusing on B UE hand placement, sitting balance and increasing activity tolerance. Pt transferred to therapy mat (see PT notes for transfer progress) to complete B UE/LE strengthening against gravity. Pt fatigues quickly and requires extended recovery breaks due to SOA. After therapy, pt sitting in recliner with call light/phone in reach. All needs met in room. OT Short Term Goals Short Term Goals Time Frame: Dec 11, 2020 Eatin Oral hygiene: 88 Toileting hygiene: 2 Shower/bathe self: 3 Upper body dressin Lower body dressin Putting on/taking off footwear: 6 OT Professor Of Fine Art Goals Professor Of Fine Art Goals Time Frame: Dec 25, 2020 Eating (QC): 6 Oral Hygiene (QC): 6 Toileting Hygiene (QC): 5 Shower/Bathe Self (QC): 5 Upper Body Dressing (QC): 6 Lower Body Dressing (QC): 4 On/Off Footwear (QC): 6 Additional Goals: 1-Demonstrate ADL Tasks, 2-Verbalize Understanding, 3- ImproveStrength/Erick 1=Demonstrate adherence to instructed precautions during ADL tasks. 2=Patient will verbalize/demonstrate understanding of assistive devices/modifications for ADL. 3=Patient will improve strength/tolerance for activity to enable patient to perform ADL's. OT Education/Plan Problem List/Assessment Assessment: Decreased Activ Tolerance, Decreased UE Strength, Impaired Coordination, Impaired Funct Balance, Impaired Self-Care Skills Discharge Recommendations Plan/Recommendations: Continue POC Treatment Plan/Plan of Care Patient would benefit from OT for education, treatment and training to promote independence in ADL's, mobility, safety and/or upper extremity function for ADL's. Plan of Care: ADL Retraining, Caregiver Training, Concurrent Therapy, Functional Mobility, Group Exercise/Act as Ind, UE Funct Exercise/Act, UE Neuromus Re-Ed/Coord, W/C Management Training Treatment Duration: Dec 25, 2020 Frequency: Modified Program (IRF) Estimated Hrs Per Day: 1.5 hours per day Agreement: Yes Rehab Potential: Fair Time/GCodes Start Time: 11:30 Stop Time: 12:00 Total Time Billed (hr/min): 30 Billed Treatment Time 1 visit-FA 2 (30 min) BRITNEY SALES Dec 24, 2020 11:58
--- NOTE | 2020-12-24 12:53 | Physical Therapy Daily Note ---
PT Daily Note-Current Subjective Patient in chair pre tx, agrees to PT, has no complaints of pain at rest. Will be co-treating with OT due to poor patient mobility, strength, endurance, coordinate UE and LE during activity, safety and reduce risk of falls. Appearance Patient in recliner post tx with nurse call, phone, tray, all needs met. Mental Status Patient Orientation: Person, Place, Situation Attachments: Oxygen Transfers SCALE: Activities may be completed with or without assistive devices. 2-Gnjoxkkfse-hirnhra completes the activity by him/herself with no assistance from a helper. 5-Set-up or Clean-up Assistance-helper sets up or cleans up; patient completes activity. [place] assists only prior to or following the activity. 4-Supervision or Touching Assistance-helper provides verbal cues and/or touching/steadying and/or contact guard assistance as patient completes activity. Assistance may be provided throughout the activity or intermittently. 3-Partial/Moderate Assistance-helper does LESS THAN HALF the effort. [place] lifts, holds or supports trunk or limbs, but provides less than half the effort. 2-Substantial/Maximal Assistance-helper does MORE THAN HALF the effort. [place] lifts or holds trunk or limbs and provides more than half the effort. 0-Plfboqrlu-rtfrbu does ALL the effort. Patient does none of the effort to complete the activity. Or, the assistance of 2 or more helpers is required for the patient to complete the activity. If activity was not attempted, code reason: 7-Patient Refused. 9-Not Applicable-not attempted and the patient did not perform the activity before the current illness, exacerbation or injury. 10-Not Attempted due to Environmental Limitations-(lack of equipment, weather restraints, etc.). 88-Not Attempted due to Medical Conditions or Safety Concerns. Sit to Stand (QC): 2 Chair/Gmr-ai-Smvax Xfer(QC): 3 Patient is now able to stand with max assist and perform a transfer with min assist using a rolling walker Weight Bearing Full Weight Bearing Full Weight Bearing Gait Training Distance: 20'x3 Walk 10 feet (QC): 4 Gait Persons Needed: 1 Gait Assistive Device: FWW CGA, seems to be on the verge of knee buckling but never happened, WC follow Wheelchair Training Does the Pt Use a Wheelchair?: Yes Wheel 50 ft with 2 turns (QC): 4 Type of Wheelchair: Manual 100'x2, SBA Exercises activity kicking and throwing ball Treatments PT performed transfers, ambulation, WC mobility, safety and positioning during ball throwing and kicking, OT performed UE activity, UE positioning and safety during acitivyt. Assessment Current Status: Fair Progress improved ambulation but patient gets very SOB and fatigued with activity, needs frequent rest breaks and has a long recovery time PT Short Term Goals Short Term Goals Time Frame: Dec 11, 2020 Roll Left & Right: 4 (met) Sit to lyin (met) Lying to sitting on side of be: 4 (met) Sit to stand: 3 Chair/mzm-sd-kdfyi transfer: 3 Walk 10 feet: 3 Walk 50 feet with two turns: 3 PT Usp Goals Web Applications Administrator Goals PT Usp Goals Time Frame: Jan 01, 2021 Roll Left & Right (QC): 6 Sit to Lying (QC): 6 Lying-Sitting on Side/Bed(QC): 6 Sit to Stand (QC): 6 Chair/Xvj-bv-Yrkry Xfer(QC): 6 Toilet Transfer (QC): 6 Car Transfer (QC): 6 Does the Patient Walk: No and Walking Goal IS indicated Walk 10 feet (QC): 6 Walk 50ft with 2 Turns (QC): 6 Walk 150 ft (QC): 6 Walking 10ft on Uneven Surface: 4 1 Step (curb) (QC): 4 4 Steps (QC): 4 12 Steps (QC): 4 Picking up an Object (QC): 5 Does the Pt use WC or Scooter?: No Wheel 50 feet with 2 turns (QC: 9 Wheel 150 feet: 9 PT Plan Problem List Problem List: Activity Tolerance, Functional Strength, Safety, Balance, Gait, T ransfer, Bed Mobility, ROM Treatment/Plan Treatment Plan: Continue Plan of Care Treatment Plan: Bed Mobility, Education, Functional Activity Erick, Functional Strength, Group Therapy, Gait, Safety, Therapeutic Exercise, Transfers Treatment Duration: Jan 01, 2021 Frequency: At least 5 of 7 days/Wk (IRF) Estimated Hrs Per Day: Other (see notation) Patient and/or Family Agrees t: Yes Safety Risks/Education Patient Education: Gait Training, Transfer Techniques, Correct Positioning, W/C Management, Safety Issues Teaching Recipient: Patient Teaching Methods: Demonstration, Discussion Response to Teaching: Reinforcement Needed Time/GCodes Time In: 1100 Time Out: 1200 Total Billed Treatment Time: 60 Total Billed Treatment 1 visit EX 30' FA 30' co-treated with OT for 60' JENSEN AMBRIZ PT Dec 24, 2020 12:53
--- NOTE | 2020-12-24 13:31 | Occupational Ther Daily Note ---
OT Current Status-Daily Note Subjective No pain reported. Appearance Pt. up in chair. Agrees to work with therapy. Mental Status/Objective Patient Orientation: Person, Place, Time, Situation Attachments: Oxygen ADL-Treatment Therapy Code Descriptions/Definitions Functional [place] Measure: 0=Not Assessed/NA 4=Minimal Assistance 1=Total Assistance 5=Supervision or Setup 2=Maximal Assistance 6=Modified [place] 3=Moderate Assistance 7=Complete IndependenceSCALE: Activities may be completed with or without assistive devices. 6-Kuhxuysvke-hmebczb completes the activity by him/herself with no assistance from a helper. 5-Set-up or Clean-up Assistance-helper sets up or cleans up; patient completes activity. [place] assists only prior to or following the activity. 4-Supervision or Touching Assistance-helper provides verbal cues and/or touching/steadying and/or contact guard assistance as patient completes act ivity. Assistance may be provided throughout the activity or intermittently. 3-Partial/Moderate Assistance-helper does LESS THAN HALF the effort. [place] lifts, holds or supports trunk or limbs, but provides less than half the effort. 2-Substantial/Maximal Assistance-helper does MORE THAN HALF the effort. [place] lifts or holds trunk or limbs and provides more than half the effort. 9-Fgsgmzmpk-mpwehx does ALL the effort. Patient does none of the effort to complete the activity. Or, the assistance of 2 or more helpers is required for the patient to complete the activity. If activity was not attempted, code reason: 7-Patient Refused. 9-Not Applicable-not attempted and the patient did not perform the activity before the current illness, exacerbation or injury. 10-Not Attempted due to Environmental Limitations-(lack of equipment, weather restraints, etc.). 88-Not Attempted due to Medical Conditions or Safety Concerns. Other Treatment OT/PT co-treat due to need of two skilled clinicians for functional ambulation/endurance activities. Pt. transferred from chair to wheelchair with squat pivot, with max of one person and mod assistance of another. Pt. able to self propel to therapy gym. Stood x 3 at walker with max x 2 for sit-stand, and then ambulated with min/mod assistance with walker approximately 20 feet each time with wheelchair follow. Pt. requires significant rest break after each ambulation, but is able to recover each time and complete the next transfer. This OT transferred care to [place] for continued co-treatment with PT. All needs met. Education OT Patient Education: Correct positioning, Exercise program, Progress toward Goal/Update tx plan, Purpose of tx/functional activities, Reviewed precautions, Rehab process, Transfer techniques Teaching Recipient: Patient Teaching Methods: Demonstration, Discussion Response to Teaching: Verbalize Understanding, Return Demonstration OT Short Term Goals Short Term Goals Time Frame: Dec 11, 2020 Eatin Oral hygiene: 88 Toileting hygiene: 2 Shower/bathe self: 3 Upper body dressin Lower body dressin Putting on/taking off footwear: 6 OT Billboard Poster Helper Goals Halfway Goals Time Frame: Dec 25, 2020 Eating (QC): 6 Oral Hygiene (QC): 6 Toileting Hygiene (QC): 5 Shower/Bathe Self (QC): 5 Upper Body Dressing (QC): 6 Lower Body Dressing (QC): 4 On/Off Footwear (QC): 6 Additional Goals: 1-Demonstrate ADL Tasks, 2-Verbalize Understanding, 3- ImproveStrength/Erick 1=Demonstrate adherence to instructed precautions during ADL tasks. 2=Patient will verbalize/demonstrate understanding of assistive devices/modifications for ADL. 3=Patient will improve strength/tolerance for activity to enable patient to perform ADL's. OT Education/Plan Problem List/Assessment Assessment: Decreased Activ Tolerance, Impaired I ADL's, Impaired Self-Care Skills Discharge Recommendations Plan/Recommendations: Continue POC Therapy Discharge Recommendati: Post Acute OT Treatment Plan/Plan of Care Treatment,Training & Education: Yes Patient would benefit from OT for education, treatment and training to promote independence in ADL's, mobility, safety and/or upper extremity function for ADL's. Plan of Care: ADL Retraining, Caregiver Training, Functional Mobility, Group Exercise/Act as Ind, UE Funct Exercise/Act, W/C Management Training Treatment Duration: Dec 25, 2020 Frequency: Modified Program (IRF) Estimated Hrs Per Day: 1.5 hours per day Agreement: Yes Rehab Potential: Fair Time/GCodes Start Time: 11:00 Stop Time: 11:30 Total Time Billed (hr/min): 30 Billed Treatment Time 1, FA x 2 CAMILA SINCLAIR OT Dec 24, 2020 13:31
--- NOTE | 2020-12-24 13:34 | Occupational Ther Daily Note ---
OT Current Status-Daily Note Subjective No pain reported. Mental Status/Objective Patient Orientation: Person, Place, Time, Situation ADL-Treatment Therapy Code Descriptions/Definitions Functional [place] Measure: 0=Not Assessed/NA 4=Minimal Assistance 1=Total Assistance 5=Supervision or Setup 2=Maximal Assistance 6=Modified [place] 3=Moderate Assistance 7=Complete IndependenceSCALE: Activities may be completed with or without assistive devices. 0-Sbmstobbwb-kymvddy completes the activity by him/herself with no assistance from a helper. 5-Set-up or Clean-up Assistance-helper sets up or cleans up; patient completes activity. [place] assists only prior to or following the activity. 4-Supervision or Touching Assistance-helper provides verbal cues and/or touching/steadying and/or contact guard assistance as patient completes activity. Assistance may be provided throughout the activity or intermittently. 3-Partial/Moderate Assistance-helper does LESS THAN HALF the effort. [place] lifts, holds or supports trunk or limbs, but provides less than half the effort. 2-Substantial/Maximal Assistance-helper does MORE THAN HALF the effort. [place] lifts or holds trunk or limbs and provides more than half the effort. 4-Hdwfadeks-fbpqdn does ALL the effort. Patient does none of the effort to complete the activity. Or, the assistance of 2 or more helpers is required for the patient to complete the activity. If activity was not attempted, code reason: 7-Patient Refused. 9-Not Applicable-not attempted and the patient did not perform the activity before the current illness, exacerbation or injury. 10-Not Attempted due to Environmental Limitations-(lack of equipment, weather restraints, etc.). 88-Not Attempted due to Medical Conditions or Safety Concerns. Other Treatment Pt. up in chair. Agrees to work with OT. Pt. completed 4 bilateral UE exercises x 20 reps each with red theraband in all planes. Tolerated this to increase overall strength and independence with daily tasks. Pt. able to recover with breathing more easily, and move on to next exercise. Pt. up in chair with all needs met after session. Education OT Patient Education: Correct positioning, Exercise program, Progress toward Goal/Update tx plan, Purpose of tx/functional activities, Reviewed precautions, Rehab process Teaching Recipient: Patient Teaching Methods: Demonstration, Discussion Response to Teaching: Verbalize Understanding, Return Demonstration OT Short Term Goals Short Term Goals Time Frame: Dec 11, 2020 Eatin Oral hygiene: 88 Toileting hygiene: 2 Shower/bathe self: 3 Upper body dressin Lower body dressin Putting on/taking off footwear: 6 OT Telesales Advisor Goals [facility] Goals Time Frame: Dec 25, 2020 Eating (QC): 6 Oral Hygiene (QC): 6 Toileting Hygiene (QC): 5 Shower/Bathe Self (QC): 5 Upper Body Dressing (QC): 6 Lower Body Dressing (QC): 4 On/Off Footwear (QC): 6 Additional Goals: 1-Demonstrate ADL Tasks, 2-Verbalize Understanding, 3-ImproveStrength/Erick 1=Demonstrate adherence to instructed precautions during ADL tasks. 2=Patient will verbalize/demonstrate understanding of assistive devices/modifications for ADL. 3=Patient will improve strength/tolerance for activity to enable patient to perform ADL's. OT Education/Plan Problem List/Assessment Assessment: Decreased Activ Tolerance, Impaired I ADL's, Impaired Self-Care Skills Discharge Recommendations Plan/Recommendations: Continue POC Therapy Discharge Recommendati: Post Acute OT Treatment Plan/Plan of Care Treatment,Training & Education: Yes Patient would benefit from OT for education, treatment and training to promote independence in ADL's, mobility, safety and/or upper extremity function for ADL's. Plan of Care: ADL Retraining, Caregiver Training, Functional Mobility, Group Exercise/Act as Ind, UE Funct Exercise/Act, W/C Management Training Treatment Duration: Dec 25, 2020 Frequency: Modified Program (IRF) Estimated Hrs Per Day: 1.5 hours per day Agreement: Yes Rehab Potential: Fair Time/GCodes Start Time: 13:00 Stop Time: 13:15 Total Time Billed (hr/min): 15 Billed Treatment Time 1, Ex CAMILA SINCLAIR OT Dec 24, 2020 13:34
--- NOTE | 2020-12-24 13:59 | Physical Therapy Daily Note ---
PT Daily Note-Current Subjective Patient in recliner pre tx, agrees to PT, has no complaints of pain at rest. Appearance Patient in recliner post tx with nurse call, phone, tray, all needs met. Nurse in room to give meds. Mental Status Patient Orientation: Normal For Age Attachments: Oxygen Transfers SCALE: Activities may be completed with or without assistive devices. 2-Tfdbicwmes-fvqzhsp completes the activity by him/herself with no assistance from a helper. 5-Set-up or Clean-up Assistance-helper sets up or cleans up; patient completes activity. [place] assists only prior to or following the activity. 4-Supervision or Touching Assistance-helper provides verbal cues and/or touching/steadying and/or contact guard assistance as patient completes activity. Assistance may be provided throughout the activity or intermittently. 3-Partial/Moderate Assistance-helper does LESS THAN HALF the effort. [place] lifts, holds or supports trunk or limbs, but provides less than half the effort. 2-Substantial/Maximal Assistance-helper does MORE THAN HALF the effort. [place] lifts or holds trunk or limbs and provides more than half the effort. 2-Izbjzxdlp-koiudx does ALL the effort. Patient does none of the effort to complete the activity. Or, the assistance of 2 or more helpers is required for the patient to complete the activity. If activity was not attempted, code reason: 7-Patient Refused. 9-Not Applicable-not attempted and the patient did not perform the activity before the current illness, exacerbation or injury. 10-Not Attempted due to Environmental Limitations-(lack of equipment, weather restraints, etc.). 88-Not Attempted due to Medical Conditions or Safety Concerns. Weight Bearing Full Weight Bearing Full Weight Bearing Exercises Supine Ex: Ankle pumps, Quad Set, Glut sets, Heel Slides, Short Arc Quads, Stra ight leg raise (AAROM), Hip abd/add Supine Reps: 20 Seated Therapy Exercises: Ankle pumps, Long arc quads, Hip flexion Seated Reps: 20 Treatments LE exercise Assessment Current Status: Fair Progress slowly improving LE strength PT Short Term Goals Short Term Goals Time Frame: Dec 11, 2020 Roll Left & Right: 4 (met) Sit to lyin (met) Lying to sitting on side of be: 4 (met) Sit to stand: 3 Chair/kso-ri-qtgti transfer: 3 Walk 10 feet: 3 Walk 50 feet with two turns: 3 PT Mcc Goals Mcc Goals PT Mcc Goals Time Frame: Jan 01, 2021 Roll Left & Right (QC): 6 Sit to Lying (QC): 6 Lying-Sitting on Side/Bed(QC): 6 Sit to Stand (QC): 6 Chair/Zvu-la-Dtrwm Xfer(QC): 6 Toilet Transfer (QC): 6 Car Transfer (QC): 6 Does the Patient Walk: No and Walking Goal IS indicated Walk 10 feet (QC): 6 Walk 50ft with 2 Turns (QC): 6 Walk 150 ft (QC): 6 Walking 10ft on Uneven Surface: 4 1 Step (curb) (QC): 4 4 Steps (QC): 4 12 Steps (QC): 4 Picking up an Object (QC): 5 Does the Pt use WC or Scooter?: No Wheel 50 feet with 2 turns (QC: 9 Wheel 150 feet: 9 PT Plan Problem List Problem List: Activity Tolerance, Functional Strength, Safety, Balance, Gait, Transfer, Bed Mobility, ROM Treatment/Plan Treatment Plan: Continue Plan of Care Treatment Plan: Bed Mobility, Education, Functional Activity Erick, Functional Strength, Group Therapy, Gait, Safety, Therapeutic Exercise, Transfers Treatment Duration: Jan 01, 2021 Frequency: At least 5 of 7 days/Wk (IRF) Estimated Hrs Per Day: Other (see notation) Patient and/or Family Agrees t: Yes Safety Risks/Education Patient Education: Correct Positioning, Safety Issues Teaching Recipient: Patient Teaching Methods: Demonstration, Discussion Response to Teaching: Reinforcement Needed Time/GCodes Time In: 1345 Time Out: 1400 Total Billed Treatment Time: 15 Total Billed Treatment 1 visit EX [id number] BOLTON PT Dec 24, 2020 13:59
[2020-12-24 16:00] VITALS: BP 141/80
[2020-12-24] MEDS: MELATONIN 3 MG TABLET PO SCH (20:40)
[2020-12-24] MEDS: MIRTAZAPINE 15 MG (REMERON) TAB PO SCH (20:41)
[2020-12-25] MEDS: CATHETER FLUSH 10 ML SYR IV SCH ×4 (05:27→22:06)
[2020-12-25] MEDS: inSUlin ASPART (NovoLOG) 1 UNIT/0.01 ML (CHARGE PER UNIT) SC SCH ×4 (05:28→20:40)
[2020-12-25 05:56] VITALS: BP 142/72
[2020-12-25] MEDS: LOSARTAN 25 MG (COZAAR) TAB PO SCH (08:09)
[2020-12-25] MEDS: APIXABAN 5 MG (ELIQUIS) TABLET PO SCH ×2 (08:09→20:38)
[2020-12-25] MEDS: TAMSULOSIN 0.4 MG (FLOMAX) CAP PO SCH (08:09)
[2020-12-25] MEDS: meTOprolol TARTRATE 50 MG (LOPRESSOR) TAB PO SCH ×2 (08:09→20:38)
[2020-12-25] MEDS: ASCORBIC ACID (VIT C) 500 MG TABLET PO SCH ×2 (08:09→17:21)
[2020-12-25] MEDS: FINASTERIDE (PROSCAR) 5 MG TAB PO SCH (08:09)
[2020-12-25] MEDS: GABAPENTIN 100 MG (NEURONTIN) CAP PO SCH ×3 (08:09→20:38)
[2020-12-25] MEDS: PANTOPRAZOLE 40 MG (PROTONIX) TAB PO SCH (08:09)
[2020-12-25] MEDS: predniSONE 10 MG TAB PO SCH (08:09)
[2020-12-25] MEDS: VITAMIN D3 25 MCG (1,000 UNITS) TABLET PO SCH (08:09)
[2020-12-25] MEDS: ACETAMINOPHEN 325 MG TABLET PO SCH ×3 (08:09→20:38)
[2020-12-25] MEDS: ASPIRIN 81 MG CHEW (CHILDREN'S ASA) PO SCH (08:09)
[2020-12-25] MEDS: FLUTICASONE NASAL SPRAY (FLONASE) 16 GM BTL NS SCH (08:10)
[2020-12-25] MEDS: DOCUSATE SODIUM 100 MG (COLACE) CAP PO SCH ×2 (08:10→21:00)
[2020-12-25] MEDS: SENNA W/DOCUSATE (SENOKOT S) TABLET PO SCH ×2 (08:10→21:29)
[2020-12-25] MEDS: polyethylene glycoL POWDER 17 GM (MIRALAX) PACK PO SCH ×2 (08:10→21:28)
[2020-12-25] MEDS: SALIVA STIMULANT MOUTH SPRAY (BIOTENE) 1.5 OZ MM SCH ×4 (08:11→20:39)
[2020-12-25] MEDS: SALINE NASAL SPRAY (OCEAN) 45 ML BTL NS SCH ×3 (08:12→20:37)
--- NOTE | 2020-12-25 08:19 | PM&R Progress Note ---
Subjective HPI/CC On Admission Date Seen by Provider: Dec 25, 2020 Time Seen by Provider: 08:30 Subjective/Events-last exam 12/25/20: Awaiting usp placement Actually working pretty well with therapy Denies any significant new pain Blurry vision still continues Didnt sleep real well last night 12/24/20: Eyes were better but the more he works on the computer the blurry issues return DC is on hold due to NH processes 12/23/20: Pt doing pretty well Buttock decubitus ulcer needs further treatment Discharge planned for tomorrow Hemaglobin 9.3 Midline will be discontinued at his request 12/22/20: Home O2 evaluation tomorrow for DC Wednesday DM education will be provided DC planned for NH 12/21/20: Doing well Slept well BM today Edema improved on KRIS's Decubitus ulcers worsened due to sitting in chair all day long IS use increased 12/20/20: Now has daily complaints about minor things since he was notified last week he would need a [place] Nurse broke his grabber so will obtain replacement for him Butt paste placed on buttocks Stage 2 No other issues 12/19/20: No major issues Bowels are moving half-way placement on Wednesday12/18/20: Discharge Wednesday to the usp Family training did not go well Son was there but did not engage Insists on going home but that would not be a possibility Placing Alevin on buttock 12/17/20: Family training today at 10:00 Still has a stage 2 buttock decubitus ulcer Overall feels like he is doing much better Son at bedside when I rounded later today and he was evaluating his progress 12/16/20: Pt doing pretty well Bowels moved today Left midline is functioning Blood sugar 147 Stage 2 decubitus ulcer on the buttock Working really hard to stand 12/15/20: Overall doing well No issues BM+ No falls 12/14/20: Doing well BM+ Dyspnea still continues No pain 12/13/20: Patient more alert today and energized No pain reported Oxycodone helps the foot pain Participating with therapy 12/12/20: Pt doing a lot better Having a lot of pain, takes Oxycodone for his foot and leg pain Bowels are moving Sleeping better Pt very well could require a usp since he lives alone and is just not progressing well 12/11/20: No major issues Pretty much has plateaued and not made much progress with ambulation Epistaxis of the left nostril Nasal sprays will be continued Re-check and check with insurance coverage but he very well may need to be in a usp 12/10/20: Pt doing pretty well Slept on and off last night Remains on 4 liters of O2 Swelling in his feel is pretty minimal Did not use his BiPAP last night and that likely is the cause of not sleeping well 12/09/20: Pt slept pretty well Bowels are moving PLTs are 97, 000 Normal WBC down from 21 when he first arrived Denies any significant issues Trying to get strong enough to walk 12/08/20: Slept well last night Remeron and Melatonin has helped him a lot Sinus tachy last night BM 12/06/20 so laxatives given No other issues 12/07/20: Slept better Yonker provided for phlem HR 60 Appreciate Cardiology 4L/min O2 BM 12/06/20 12/06/20: HR 122 Cardiology consulted Sugar 54 so decreasing insulin BM++ No pain reported No sleeping well so added hypnotics of Melatonin and Remeron 12/05/20: Patient doing well Worn out from fatigue Sugars are ok No pain reported Tachycardic so consulting Dr Carranza Midline was accidently pulled out so need a new one placed Checked meds and labs Review of Systems General: Fatigue, Malaise Pulmonary: Dyspnea Neurological: Weakness, Incoordination Objective Exam Vital Signs Vital Signs Date Time Temp Pulse Resp B/P (MAP) Pulse Ox O2 Delivery O2 Flow Rate FiO2 12/25/20 19:16 98 Nasal Cannula 2.00 12/25/20 16:19 36.4 79 20 126/81 (96) Capillary Refill : General Appearance: No Apparent Distress, WD/WN, Anxious, Chronically ill, Obese HEENT: PERRL/EOMI, Normal ENT Inspection, Pharynx Normal Neck: Full Range of Motion, Normal Inspection, Non Tender, Supple, Carotid Bruit Respiratory: Chest Non Tender, No Accessory Muscle Use, No Respiratory Distress, Crackles, Decreased Breath Sounds Cardiovascular: Regular Rate, Rhythm, No Gallop, No JVD, No Murmur, Normal Peripheral Pulses Gastrointestinal: Normal Bowel Sounds, No Organomegaly, No Pulsatile Mass, Non Tender, Soft Back: Normal Inspection, No CVA Tenderness, No Vertebral Tenderness Extremity: Normal Capillary Refill, Normal Inspection, Normal Range of Motion, Non Tender, No Calf Tenderness, Pedal Edema Neurologic/Psychiatric: Alert, Oriented x3, No Motor/Sensory Deficits, 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 FIM Transfers Therapy Code Descriptions/Definitions Functional [place] Measure: 0=Not Assessed/NA 4=Minimal Assistance 1=Total Assistance 5=Supervision or Setup 2=Maximal Assistance 6=Modified [place] 3=Moderate Assistance 7=Complete IndependenceSCALE: Activities may be completed with or without assistive devices. 0-Xgnfrlqwgq-edqkslw completes the activity by him/herself with no assistance from a helper. 5-Set-up or Clean-up Assistance-helper sets up or cleans up; patient completes activity. [place] assists only prior to or following the activity. 4-Supervision or Touching Assistance-helper provides verbal cues and/or touching/steadying and/or contact guard assistance as patient completes activity. Assistance may be provided throughout the activity or intermittently. 3-Partial/Moderate Assistance-helper does LESS THAN HALF the effort. [place] lifts, holds or supports trunk or limbs, but provides less than half the effort. 2-Substantial/Maximal Assistance-helper does MORE THAN HALF the effort. [place] lifts or holds trunk or limbs and provides more than half the effort. 0-Oxgnvulju-cqohhb does ALL the effort. Patient does none of the effort to complete the activity. Or, the assistance of 2 or more helpers is required for the patient to complete the activity. If activity was not attempted, code reason: 7-Patient Refused. 9-Not Applicable-not attempted and the patient did not perform the activity before the current illness, exacerbation or injury. 10-Not Attempted due to Environmental Limitations-(lack of equipment, weather restraints, etc.). 88-Not Attempted due to Medical Conditions or Safety Concerns. Roll Left to Right (QC): 6 Sit to Lying (QC): 6 Sit to Stand (QC): 2 Chair/Glv-tu-Vyryh Xfer(QC): 3 Car Transfer (QC): 3 (mod assist for car transfer with partial stand turn) Gait Training Distance: 20'x3 Walk 10 feet (QC): 4 Walk 50 ft with 2 Turns(QC): 88 Walk 150 ft (QC): 88 Walking 10ft/uneven surface-QC: 88 Gait Persons Needed: 1 Gait Assistive Device: FWW Wheelchair Training Does the Pt Use a Wheelchair?: Yes Wheel 50 ft with 2 turns (QC): 4 Wheel 150 ft (QC): 6 Type of Wheelchair: Manual Stair Training 1 Step (curb) (QC): 88 4 Steps (QC): 88 12 Steps (QC): 88 Balance Picking up an Object (QC): 88 ADL-Treatment Eating (QC): 6 Oral Hygiene (QC): 6 (Independent at sink from wheelchair level.) Bathing Location: L Arm, R Arm, L Upper Leg, R Upper Leg, Chest, Abdomen, Perineal Area Shower/Bathe Self (QC): 1 (Pt. still requires use of sit-stand lift to have bottom cleansed thoroughly.) Upper Body Dressing (QC): 5 (Set up) Lower Body Dressing (QC): 2 (Pt. able to lean side to side in chair enough to pull pants over hips. 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 Obesity DM Neuropathy Anemia O2 dependence Plan: IRF protocol Monitor O2 O2 supplement 12/05/20: O2 maintained IRF protocol Cardiology consultation appreciated Midline replacement 12/06/20: Cardiology consult appreciated Decrease insulin Midline Monitor closely 12/07/20: Monitor closely O2 wean Increase acitivity Maintain Remeron and Melatonin 12/08/20: Monitor closely Check labs in am Monitor tachycardia Remeron and Melatonin 12/09/20: Labs normal Improved strength Weaning O2 Monitor insomnia Increase insulin 12/10/20: Monitor O2 Increase strength Severe myopathy of legs 12/11/20: Difficult to progress Continue therapy May need NHP 12/12/20: Pain control with Oxycodone Monitor bowels Monitor O2 12/13/20: Monitor pain Wean O2 CPAP mask seems to be working better 12/14/20: Improved status Stood up today with help O2 12/15/20: Wean O2 Monitor ambulation CPAP at night 12/16/20: Monitor progress Decubitus ulcer management Monitor BP 12/17/20: Family education/training today Monitor O2 CPAP with O2 12/18/20: Monitor O2 NH Wednesday Continue to work on stamina 12/19/20: Monitor O2 CPAP 12/20/20: Decubitus ulcer management Monitor O2 Replace grabber 12/21/20: Monitor O2 KRIS CPAP 12/22/20: DC Wednesday to [place] Home O2 evaluation 12/23/20: DC midline DC tomorrow to [place] Needs eye exam soon for blurry vision 12/24/20: DC on hold Monitor O2 12/25/20: Continue therapy Making significant progress (1) COVID-19 (2) RICHY on CPAP (3) Obesity (4) Diabetes (5) Hypertension (6) Edema (7) Neuropathy (8) Anemia (9) Advanced age DEANNA BOO DO Dec 25, 2020 08:19
--- NOTE | 2020-12-25 09:02 | Cardiology Progress Note ---
Subjective Date Seen by Provider: Dec 25, 2020 Time Seen by Provider: 08:59 Subjective/Events-last exam Patient is here for follow up. Denies any chest pain Review of Systems General: No Chills, No Night Sweats, No Fatigue, No Malaise, No Appetite, No Other HEENT: No Head Aches, No Visual Changes, No Eye Pain, No Ear Pain, No Dysphasia, No Sinus Congestion, No Post Nasal Drip, No Sore Throat, No Other Pulmonary: No Dyspnea, No Cough, No Pleuritic Chest Pain, No Other Cardiovascular: No: Chest Pain, Palpitations, Orthopnea, Paroxysmal Noc. Dyspnea, Edema, Lt Headedness, Other Objective-Cardiology Exam Last Set of Vital Signs Vital Signs 12/25/20 12/25/20 05:56 09:40 Temp 36.2 Pulse 70 Resp 17 B/P (MAP) 142/72 (95) Pulse Ox 98 O2 Delivery Nasal Cannula O2 Flow Rate 3.50 Capillary Refill : I&O Intake and Output 12/25/20 00:00 Intake Total 1380 ml Output Total 1450 ml Balance -70 ml Intake Oral 1380 ml Output Urine Total 1450 ml # Voids 5 # Bowel Movements 1 General: Alert, Oriented X3, Cooperative HEENT: Atraumatic, PERRLA Neck: Supple, No JVD, No Thyromegaly Lungs: Clear to Auscultation, Normal Air Movement Heart: Normal S1, Normal S2, No Murmurs, Other (irregularly irregular) Abdomen: Normal Bowel Sounds, Soft, No Tenderness, No Hepatosplenomegaly, No Masses Extremities: No Clubbing, No Cyanosis Skin: No Rashes, No Significant Lesion Neuro: Normal Speech, Cranial Nerves 3-12 NL Psych/Mental Status: Mental Status NL, Mood NL A/P-Cardiology Admission Diagnosis Afib HTN HLP DM Assessment/Plan Atrial fibrillation with controlled ventricular rate, maintained on Eliquis, continue to monitor. Hypertension, better control at this time. 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 Dawkins Critical illness myopathy, COVID-19, continue PT/OT RICHY, treated with CPAP, managed by Dr Dawkins Patient was seen and evaluated with Rhona, examination performed, management plan was discussed, agree with the current scribed note, I made few changes to the note using Italic font Patient was seen at bedside, in a wheelchair, feeling well Continue current medication no changes are recommended RHONA MARTINEZ Dec 25, 2020 9:01 am JOSE MARIA QUEZADA MD Dec 25, 2020 3:11 pm
[2020-12-25] MEDS: ADVAIR HFA 115/21 MCG INHALER 8 GM IH SCH ×2 (09:49→19:16)
[2020-12-25] MEDS: UMECLIDINIUM BROMIDE (INCRUSE ELLIPTA) 7'S IH SCH (09:50)
--- NOTE | 2020-12-25 11:18 | Occupational Ther Daily Note ---
OT Current Status-Daily Note Subjective No pain reported. Mental Status/Objective Patient Orientation: Person, Place, Time, Situation Attachments: Oxygen ADL-Treatment Therapy Code Descriptions/Definitions Functional [place] Measure: 0=Not Assessed/NA 4=Minimal Assistance 1=Total Assistance 5=Supervision or Setup 2=Maximal Assistance 6=Modified [place] 3=Moderate Assistance 7=Complete IndependenceSCALE: Activities may be completed with or without assistive devices. 0-Wflhbqkqyh-rnfxxkw completes the activity by him/herself with no assistance from a helper. 5-Set-up or Clean-up Assistance-helper sets up or cleans up; patient completes activity. [place] assists only prior to or following the activity. 4-Supervision or Touching Assistance-helper provides verbal cues and/or touching/steadying and/or contact guard assistance as patient completes activity. Assistance may be provided throughout the activity or intermittently. 3-Partial/Moderate Assistance-helper does LESS THAN HALF the effort. [place] lifts, holds or supports trunk or limbs, but provides less than half the effort. 2-Substantial/Maximal Assistance-helper does MORE THAN HALF the effort. [place] lifts or holds trunk or limbs and provides more than half the effort. 8-Ayvjncqaf-yifpwr does ALL the effort. Patient does none of the effort to complete the activity. Or, the assistance of 2 or more helpers is required for the patient to complete the activity. If activity was not attempted, code reason: 7-Patient Refused. 9-Not Applicable-not attempted and the patient did not perform the activity before the current illness, exacerbation or injury. 10-Not Attempted due to Environmental Limitations-(lack of equipment, weather restraints, etc.). 88-Not Attempted due to Medical Conditions or Safety Concerns. Oral Hygiene (QC): 6 (Independent seated at sink in wheelchair.) Shower/Bathe Self (QC): 7 (Pt. declines showering stating that he had an accident in bed last night, and so was "cleaned up" then.) Upper Body Dressing (QC): 5 On/Off Footwear: 5 (Set up to don shoes.) Other Treatment Pt. stood with use of sit-stand lift from chair. He is transferred to wheelchair and is able to propel himself into bathroom. Pt. brushes hair and teeth at wheelchair level. After this, pt. propels to therapy gym. Tolerates arm bike x 10minutes at mod resistance for increased UE strength and mobility. Pt. also dons 1 lb. wrist weights and completes peg activity with alternating reach for UE strength. Tolerated well. Pt. self propelled back to room. Transferred to chair with sit-stand lift. All needs met. Education OT Patient Education: Correct positioning, Exercise program, Modified ADL techniques, Progress toward Goal/Update tx plan, Purpose of tx/functional activities, Reviewed precautions, Rehab process, Transfer techniques Teaching Recipient: Patient Teaching Methods: Demonstration, Discussion Response to Teaching: Verbalize Understanding, Return Demonstration OT Short Term Goals Short Term Goals Time Frame: Dec 11, 2020 Eatin Oral hygiene: 88 Toileting hygiene: 2 Shower/bathe self: 3 Upper body dressin Lower body dressin Putting on/taking off footwear: 6 OT Longterm Goals Longterm Goals Time Frame: Dec 25, 2020 Eating (QC): 6 Oral Hygiene (QC): 6 Toileting Hygiene (QC): 5 Shower/Bathe Self (QC): 5 Upper Body Dressing (QC): 6 Lower Body Dressing (QC): 4 On/Off Footwear (QC): 6 Additional Goals: 1-Demonstrate ADL Tasks, 2-Verbalize Understanding, 3- ImproveStrength/Erick 1=Demonstrate adherence to instructed precautions during ADL tasks. 2=Patient will verbalize/demonstrate understanding of assistive ramandeep kraig/modifications for ADL. 3=Patient will improve strength/tolerance for activity to enable patient to perform ADL's. OT Education/Plan Problem List/Assessment Assessment: Decreased Activ Tolerance, Impaired I ADL's, Impaired Self-Care Skills Discharge Recommendations Plan/Recommendations: Continue POC Therapy Discharge Recommendati: Post Acute OT Treatment Plan/Plan of Care Treatment,Training & Education: Yes Patient would benefit from OT for education, treatment and training to promote independence in ADL's, mobility, safety and/or upper extremity function for ADL's. Plan of Care: ADL Retraining, Caregiver Training, Functional Mobility, Group Exercise/Act as Ind, UE Funct Exercise/Act, W/C Management Training Treatment Duration: Dec 25, 2020 Frequency: Modified Program (IRF) Estimated Hrs Per Day: 1.5 hours per day Agreement: Yes Rehab Potential: Fair Time/GCodes Start Time: 08:30 Stop Time: 09:45 Total Time Billed (hr/min): 75 Billed Treatment Time 1, ADL x 30minutes, Ex x 15minutes, FA x 30minutes CAMILA SINCLAIR OT Dec 25, 2020 11:18
--- NOTE | 2020-12-25 11:45 | Physical Therapy Daily Note ---
PT Daily Note-Current Subjective Pt sitting in recliner upon arrival. Agrees to PT tx. Pain Numeric Pain Scale: 0-No Pain Location: No Pain Reported Mental Status Patient Orientation: Person, Place, Time, Situation Attachments: Oxygen Transfers SCALE: Activities may be completed with or without assistive devices. 2-Dmxjoowmxn-fxrhyri completes the activity by him/herself with no assistance from a helper. 5-Set-up or Clean-up Assistance-helper sets up or cleans up; patient completes activity. [place] assists only prior to or following the activity. 4-Supervision or Touching Assistance-helper provides verbal cues and/or touching/steadying and/or contact guard assistance as patient completes activity. Assistance may be provided throughout the activity or intermittently. 3-Partial/Moderate Assistance-helper does LESS THAN HALF the effort. [place] lifts, holds or supports trunk or limbs, but provides less than half the effort. 2-Substantial/Maximal Assistance-helper does MORE THAN HALF the effort. [place] lifts or holds trunk or limbs and provides more than half the effort. 0-Uachuoiqv-epvpgn does ALL the effort. Patient does none of the effort to complete the activity. Or, the assistance of 2 or more helpers is required for the patient to complete the activity. If activity was not attempted, code reason: 7-Patient Refused. 9-Not Applicable-not attempted and the patient did not perform the activity before the current illness, exacerbation or injury. 10-Not Attempted due to Environmental Limitations-(lack of equipment, weather restraints, etc.). 88-Not Attempted due to Medical Conditions or Safety Concerns. Sit to Stand (QC): 1 Chair/Mvm-ma-Hogqg Xfer(QC): 1 Weight Bearing Full Weight Bearing Full Weight Bearing Gait Training Does the Patient Walk?: Yes Distance: 20' Walk 10 feet (QC): 4 Gait Persons Needed: 2 Gait Assistive Device: FWW 1 staff following behind w/ w/c and O2 Wheelchair Training Does the Pt Use a Wheelchair?: Yes Wheel 50 ft with 2 turns (QC): 4 Wheel 150 ft (QC): 4 Type of Wheelchair: Manual (4) Pt propels self in w/c using BUEs and BLEs Exercises Supine Ex: Ankle pumps, Straight leg raise, Hip abd/add Supine Reps: 15 Seated Therapy Exercises: Ankle pumps, Sit to stand, Long arc quads, Hip flexion, Glut set Seated Reps: 15 Standing: Weight shifts Treatments Pt completes LE ex in long sitting and seated. Pt transfers recliner to w/c using sit<>stand lift. Pt propels self throughout unit and floor, ending in therapy gym; pt requires 3 rest breaks during w/c mobility d/t SOB. Pt sit<>stands from w/c using FWW w/ MaxA x1. Pt completes lateral wt shifting using FWW for support. During ambulation, pt requires 2 seated rest breaks. Pt propels self back to room and requests to remain up in w/c for lunch. Pt has bed side table, call light and all needs met at end of tx. Assessment Current Status: Fair Progress Decreased endurance, requires frequent rest breaks d/t fatigue and SOB, poor transfers, poor BLE strength PT Short Term Goals Short Term Goals Time Frame: Dec 11, 2020 Roll Left & Right: 4 (met) Sit to lyin (met) Lying to sitting on side of be: 4 (met) Sit to stand: 3 Chair/nxe-df-lvxzg transfer: 3 Walk 10 feet: 3 Walk 50 feet with two turns: 3 PT Residential Goals Residential Goals PT Licensed Acupuncturist Goals Time Frame: Jan 01, 2021 Roll Left & Right (QC): 6 Sit to Lying (QC): 6 Lying-Sitting on Side/Bed(QC): 6 Sit to Stand (QC): 6 Chair/Ios-ic-Psfci Xfer(QC): 6 Toilet Transfer (QC): 6 Car Transfer (QC): 6 Does the Patient Walk: No and Walking Goal IS indicated Walk 10 feet (QC): 6 Walk 50ft with 2 Turns (QC): 6 Walk 150 ft (QC): 6 Walking 10ft on Uneven Surface: 4 1 Step (curb) (QC): 4 4 Steps (QC): 4 12 Steps (QC): 4 Picking up an Object (QC): 5 Does the Pt use WC or Scooter?: No Wheel 50 feet with 2 turns (QC: 9 Wheel 150 feet: 9 PT Plan Problem List Problem List: Activity Tolerance, Functional Strength, Safety, Balance, Gait, Transfer, Bed Mobility, ROM Treatment/Plan Treatment Plan: Continue Plan of Care Treatment Plan: Bed Mobility, Education, Functional Activity Erick, Functional Strength, Group Therapy, Gait, Safety, Therapeutic Exercise, Transfers Treatment Duration: Jan 01, 2021 Frequency: At least 5 of 7 days/Wk (IRF) Estimated Hrs Per Day: Other (see notation) Patient and/or Family Agrees t: Yes Safety Risks/Education Patient Education: Gait Training, Transfer Techniques, Correct Positioning, W/C Management, Safety Issues Teaching Recipient: Patient Teaching Methods: Discussion Response to Teaching: Verbalize Understanding Time/GCodes Time In: 1015 Time Out: 1115 Total Billed Treatment Time: 60 Total Billed Treatment 1, [facility] (23m), GT (15m), Ex (22) SERGIO KINNEY POST ACUTE CARE NURSE PRACTITIONER Dec 25, 2020 11:45
--- NOTE | 2020-12-25 13:40 | Physical Therapy Daily Note ---
PT Daily Note-Current Subjective Pt sitting up in w/c upon arrival; agrees to PT after transferring to recliner. Pain Numeric Pain Scale: 0-No Pain Location: No Pain Reported Mental Status Patient Orientation: Person, Place, Time Attachments: Oxygen Transfers SCALE: Activities may be completed with or without assistive devices. 5-Mknnxkigdo-vzkfnzy completes the activity by him/herself with no assistance from a helper. 5-Set-up or Clean-up Assistance-helper sets up or cleans up; patient completes activity. [place] assists only prior to or following the activity. 4-Supervision or Touching Assistance-helper provides verbal cues and/or touching/steadying and/or contact guard assistance as patient completes activity. Assistance may be provided throughout the activity or intermittently. 3-Partial/Moderate Assistance-helper does LESS THAN HALF the effort. [place] lifts, holds or supports trunk or limbs, but provides less than half the effort. 2-Substantial/Maximal Assistance-helper does MORE THAN HALF the effort. [place] lifts or holds trunk or limbs and provides more than half the effort. 9-Zfyedgmxh-dqzwfn does ALL the effort. Patient does none of the effort to complete the activity. Or, the assistance of 2 or more helpers is required for the patient to complete the activity. If activity was not attempted, code reason: 7-Patient Refused. 9-Not Applicable-not attempted and the patient did not perform the activity before the current illness, exacerbation or injury. 10-Not Attempted due to Environmental Limitations-(lack of equipment, weather restraints, etc.). 88-Not Attempted due to Medical Conditions or Safety Concerns. Sit to Stand (QC): 1 Chair/Zzh-yq-Ubjxx Xfer(QC): 1 Weight Bearing Full Weight Bearing Full Weight Bearing Exercises Seated Therapy Exercises: Ankle pumps, Long arc quads, Hip flexion, Glut set Seated Reps: 12 Treatments Pt transfers from w/c to recliner using sit<>stand lift. Pt repositions self in recliner. Pt completes seated ex in recliner. Pt voiced concern w/ initiating sit<>stands. Pt educated on sequencing for push off. Pt sitting in recliner, has call light, bed side table and all needs met at end of tx. Assessment Current Status: Fair Progress Poor transfers, decreased endurance, poor BLE strength PT Short Term Goals Short Term Goals Time Frame: Dec 11, 2020 Roll Left & Right: 4 (met) Sit to lyin (met) Lying to sitting on side of be: 4 (met) Sit to stand: 3 Chair/oqq-ep-nrgee transfer: 3 Walk 10 feet: 3 Walk 50 feet with two turns: 3 PT Architecture Faculty Member Goals Retirement Goals PT Retirement Goals Time Frame: Jan 01, 2021 Roll Left & Right (QC): 6 Sit to Lying (QC): 6 Lying-Sitting on Side/Bed(QC): 6 Sit to Stand (QC): 6 Chair/Qdz-ne-Scatr Xfer(QC): 6 Toilet Transfer (QC): 6 Car Transfer (QC): 6 Does the Patient Walk: No and Walking Goal IS indicated Walk 10 feet (QC): 6 Walk 50ft with 2 Turns (QC): 6 Walk 150 ft (QC): 6 Walking 10ft on Uneven Surface: 4 1 Step (curb) (QC): 4 4 Steps (QC): 4 12 Steps (QC): 4 Picking up an Object (QC): 5 Does the Pt use WC or Scooter?: No Wheel 50 feet with 2 turns (QC: 9 Wheel 150 feet: 9 PT Plan Problem List Problem List: Activity Tolerance, Functional Strength, Safety, Balance, Gait, Transfer, Bed Mobility, ROM Treatment/Plan Treatment Plan: Continue Plan of Care Treatment Plan: Bed Mobility, Education, Functional Activity Erick, Functional Strength, Group Therapy, Gait, Safety, Therapeutic Exercise, Transfers Treatment Duration: Jan 01, 2021 Frequency: At least 5 of 7 days/Wk (IRF) Estimated Hrs Per Day: Other (see notation) Patient and/or Family Agrees t: Yes Safety Risks/Education Patient Education: Transfer Techniques, Correct Positioning, Safety Issues Teaching Recipient: Patient Teaching Methods: Discussion Response to Teaching: Verbalize Understanding Time/GCodes Time In: 1300 Time Out: 1315 Total Billed Treatment Time: 15 Total Billed Treatment 1, Ex (8m), FA (7m) SERGIO KINNEY [employer]ORIGINAL HOME SCHOOL LIAISON OFFICER Dec 25, 2020 13:40
[2020-12-25 16:19] VITALS: BP 126/81
[2020-12-25] MEDS: MIRTAZAPINE 15 MG (REMERON) TAB PO SCH (20:38)
[2020-12-25] MEDS: ZINC OXIDE 16% OINT (BUTT PASTE) 57 GM TUBE TOP PRN (20:39)
[2020-12-25] MEDS: MELATONIN 3 MG TABLET PO SCH (20:39)
[2020-12-26] MEDS: CATHETER FLUSH 10 ML SYR IV SCH (05:24)
[2020-12-26] MEDS: inSUlin ASPART (NovoLOG) 1 UNIT/0.01 ML (CHARGE PER UNIT) SC SCH ×4 (05:46→20:05)
[2020-12-26 06:22] VITALS: BP 145/75
[2020-12-26 08:00] VITALS: BP 115/61
[2020-12-26] MEDS: VITAMIN D3 25 MCG (1,000 UNITS) TABLET PO SCH (08:31)
[2020-12-26] MEDS: GABAPENTIN 100 MG (NEURONTIN) CAP PO SCH ×3 (08:31→19:59)
[2020-12-26] MEDS: TAMSULOSIN 0.4 MG (FLOMAX) CAP PO SCH (08:31)
[2020-12-26] MEDS: ASPIRIN 81 MG CHEW (CHILDREN'S ASA) PO SCH (08:31)
[2020-12-26] MEDS: meTOprolol TARTRATE 50 MG (LOPRESSOR) TAB PO SCH ×2 (08:31→19:59)
[2020-12-26] MEDS: LOSARTAN 25 MG (COZAAR) TAB PO SCH (08:31)
[2020-12-26] MEDS: PANTOPRAZOLE 40 MG (PROTONIX) TAB PO SCH (08:32)
[2020-12-26] MEDS: APIXABAN 5 MG (ELIQUIS) TABLET PO SCH ×2 (08:33→19:59)
[2020-12-26] MEDS: predniSONE 10 MG TAB PO SCH (08:33)
[2020-12-26] MEDS: ASCORBIC ACID (VIT C) 500 MG TABLET PO SCH ×2 (08:33→18:24)
[2020-12-26] MEDS: DOCUSATE SODIUM 100 MG (COLACE) CAP PO SCH ×2 (08:33→20:40)
[2020-12-26] MEDS: FINASTERIDE (PROSCAR) 5 MG TAB PO SCH (08:34)
[2020-12-26] MEDS: ACETAMINOPHEN 325 MG TABLET PO SCH (08:34)
[2020-12-26] MEDS: UMECLIDINIUM BROMIDE (INCRUSE ELLIPTA) 7'S IH SCH (08:37)
[2020-12-26] MEDS: ADVAIR HFA 115/21 MCG INHALER 8 GM IH SCH ×2 (08:38→19:23)
[2020-12-26] MEDS: FLUTICASONE NASAL SPRAY (FLONASE) 16 GM BTL NS SCH (08:39)
[2020-12-26] MEDS: SALIVA STIMULANT MOUTH SPRAY (BIOTENE) 1.5 OZ MM SCH ×4 (08:39→19:57)
[2020-12-26] MEDS: SALINE NASAL SPRAY (OCEAN) 45 ML BTL NS SCH ×3 (08:42→19:57)
[2020-12-26] MEDS: SENNA W/DOCUSATE (SENOKOT S) TABLET PO SCH ×2 (08:42→20:40)
[2020-12-26] MEDS: polyethylene glycoL POWDER 17 GM (MIRALAX) PACK PO SCH ×2 (08:42→20:40)
--- NOTE | 2020-12-26 08:49 | Cardiology Progress Note ---
Subjective Date Seen by Provider: Dec 26, 2020 Time Seen by Provider: 08:00 Subjective/Events-last exam Patient is sitting up in chair, no new complaints. Objective-Cardiology Exam Last Set of Vital Signs Vital Signs 12/26/20 06:22 Temp 36.6 Pulse 67 Resp 16 B/P (MAP) 145/75 (98) Capillary Refill : I&O Intake and Output 12/26/20 00:00 Intake Total 1100 ml Output Total 1700 ml Balance -600 ml Intake Oral 1100 ml Output Urine Total 1700 ml # Voids 3 # Bowel Movements 1 General: Alert, Oriented X3, Cooperative HEENT: Atraumatic, PERRLA Neck: Supple, No JVD, No Thyromegaly Lungs: Clear to Auscultation, Normal Air Movement Heart: Normal S1, Normal S2, No Murmurs, Other (irregularly irregular) Abdomen: Normal Bowel Sounds, Soft, No Tenderness, No Hepatosplenomegaly, No Masses Extremities: No Clubbing, No Cyanosis Skin: No Rashes, No Significant Lesion Neuro: Normal Speech, Cranial Nerves 3-12 NL Psych/Mental Status: Mental Status NL, Mood NL A/P-Cardiology Admission Diagnosis Afib HTN HLP DM Assessment/Plan Atrial fibrillation with controlled ventricular rate, maintained on Eliquis, continue to monitor. Hypertension, better control at this time. 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 Dawkins Critical illness myopathy, COVID-19, continue PT/OT RICHY, treated with CPAP, managed by Dr Dawkins Patient was seen and evaluated with Rhona, examination performed, management plan was discussed, agree with the current scribed note, I made few changes to the note using Italic font Patient was seen and evaluated with sitting comfortably, denied any chest pain. No palpitation. No syncope or near syncopal episodes. No claudications. HRONA MARTINEZ Dec 26, 2020 08:49 JOSE MARIA QUEZADA MD Dec 26, 2020 15:13
--- NOTE | 2020-12-26 10:55 | Physical Therapy Daily Note ---
PT Daily Note-Current Subjective Patient in recliner pre tx, agrees to PT, has no complaints of pain. Will be co-treating with OT due to poor patient mobility, strength,endurance, coordinate UE and LE during activity, safety and reduce risk of falls, poor safety during transfers. Appearance Patient in WC post tx with nurse call, phone, tray, all needs met. Mental Status Patient Orientation: Person, Place, Situation Attachments: Oxygen Transfers SCALE: Activities may be completed with or without assistive devices. 3-Tcdzqdlbgo-haczzmc completes the activity by him/herself with no assistance from a helper. 5-Set-up or Clean-up Assistance-helper sets up or cleans up; patient completes activity. [place] assists only prior to or following the activity. 4-Supervision or Touching Assistance-helper provides verbal cues and/or touching/steadying and/or contact guard assistance as patient completes activity. Assistance may be provided throughout the activity or intermittently. 3-Partial/Moderate Assistance-helper does LESS THAN HALF the effort. [place] lifts, holds or supports trunk or limbs, but provides less than half the effort. 2-Substantial/Maximal Assistance-helper does MORE THAN HALF the effort. [place] lifts or holds trunk or limbs and provides more than half the effort. 4-Hhjkbootn-klzvuq does ALL the effort. Patient does none of the effort to complete the activity. Or, the assistance of 2 or more helpers is required for the patient to complete the activity. If activity was not attempted, code reason: 7-Patient Refused. 9-Not Applicable-not attempted and the patient did not perform the activity before the current illness, exacerbation or injury. 10-Not Attempted due to Environmental Limitations-(lack of equipment, weather restraints, etc.). 88-Not Attempted due to Medical Conditions or Safety Concerns. Roll Left & Right (QC): 6 Sit to Lying (QC): 6 Lying to Sitting/Side of Bed(Q: 6 Sit to Stand (QC): 2 Chair/Fbd-wl-Ailbd Xfer(QC): 3 Toilet Transfer (QC): 3 Car Transfer (QC): 3 Patient performs bed mobility and supine <-> sit with independence, he has difficulty getting his legs into bed but does it without assist, sit <-> stand max assist, transfers min assist, car transfer min assist. Patient needs frequ ent cues for hand placement and safety, will often drop into chair quickly and unsafely. Weight Bearing Full Weight Bearing Full Weight Bearing Gait Training Distance: 15' Walk 10 feet (QC): 4 Walk 50 ft with 2 Turns(QC): 88 Walk 150 ft (QC): 88 Walking 10ft/uneven surface-QC: 88 Gait Persons Needed: 1 Gait Assistive Device: FWW Patient can ambulate 15' with a rolling walker with CGA, WC follow, very SOB after ambulation but O2 was 94%, fatigues very quickly Wheelchair Training Does the Pt Use a Wheelchair?: Yes Wheel 50 ft with 2 turns (QC): 4 Wheel 150 ft (QC): 88 Type of Wheelchair: Manual 120'x2, needs several rest breaks due to fatigue and SOB Stair Training 1 Step (curb) (QC): 88 4 Steps (QC): 88 12 Steps (QC): 88 Balance Picking up an Object (QC): 88 Treatments Patient also bathed and dressed. PT worked on bed mobility and transfers, ambu lation, WC mobility, standing and transfers and positioning during bathing and dressing, OT worked on bathing and dressing and UE positioning and safety during activity. Assessment Current Status: Fair Progress Patient is making progress with functional mobility but very slowly. PT Short Term Goals Short Term Goals Time Frame: Dec 11, 2020 Roll Left & Right: 4 (met) Sit to lyin (met) Lying to sitting on side of be: 4 (met) Sit to stand: 3 Chair/spy-vq-nydyt transfer: 3 Walk 10 feet: 3 Walk 50 feet with two turns: 3 PT [facility] Goals Janitorial Maintenance Worker Goals PT [facility] Goals Time Frame: Jan 01, 2021 Roll Left & Right (QC): 6 Sit to Lying (QC): 6 Lying-Sitting on Side/Bed(QC): 6 Sit to Stand (QC): 6 Chair/Lnk-dn-Abokx Xfer(QC): 6 Toilet Transfer (QC): 6 Car Transfer (QC): 6 Does the Patient Walk: No and Walking Goal IS indicated Walk 10 feet (QC): 6 Walk 50ft with 2 Turns (QC): 6 Walk 150 ft (QC): 6 Walking 10ft on Uneven Surface: 4 1 Step (curb) (QC): 4 4 Steps (QC): 4 12 Steps (QC): 4 Picking up an Object (QC): 5 Does the Pt use WC or Scooter?: No Wheel 50 feet with 2 turns (QC: 9 Wheel 150 feet: 9 PT Plan Problem List Problem List: Activity Tolerance, Functional Strength, Safety, Balance, Gait, Transfer, Bed Mobility, ROM Treatment/Plan Treatment Plan: Continue Plan of Care Treatment Plan: Bed Mobility, Education, Functional Activity Erick, Functional Strength, Group Therapy, Gait, Safety, Therapeutic Exercise, Transfers Treatment Duration: Jan 01, 2021 Frequency: At least 5 of 7 days/Wk (IRF) Estimated Hrs Per Day: Other (see notation) Patient and/or Family Agrees t: Yes Safety Risks/Education Patient Education: Gait Training, Transfer Techniques, Correct Positioning, W/C Management, Safety Issues Teaching Recipient: Patient Teaching Methods: Demonstration, Discussion Response to Teaching: Reinforcement Needed Time/GCodes Time In: 1000 Time Out: 1100 Total Billed Treatment Time: 60 Total Billed Treatment 1 visit FA 60' co-treat with OT from [id number] JENSEN AMBRIZ PT Dec 26, 2020 10:55
--- NOTE | 2020-12-26 11:19 | PM&R Progress Note ---
Subjective HPI/CC On Admission Date Seen by Provider: Dec 26, 2020 Time Seen by Provider: 11:30 Subjective/Events-last exam 12/26/20: Insurance declined skilled for now Standing and actually progressing well 2L/min and doing well DC scheduled APAP TID 12/25/20: Awaiting usp placement Actually working pretty well with therapy Denies any significant new pain Blurry vision still continues Didnt sleep real well last night 12/24/20: Eyes were better but the more he works on the computer the blurry issues return DC is on hold due to MD processes 12/23/20: Pt doing pretty well Buttock decubitus ulcer needs further treatment Discharge planned for tomorrow Hemaglobin 9.3 Midline will be discontinued at his request 12/22/20: Home O2 evaluation tomorrow for DC Wednesday DM education will be provided DC planned for MD 12/21/20: Doing well Slept well BM today Edema improved on KRIS's Decubitus ulcers worsened due to sitting in chair all day long IS use increased 12/20/20: Now has daily complaints about minor things since he was notified last week he would need a MD Nurse broke his grabber so will obtain replacement for him Butt paste placed on buttocks Stage 2 No other issues 12/19/20: No major issues Bowels are moving half-way placement on Wednesday12/18/20: Discharge Wednesday to the usp Family training did not go well Son was there but did not engage Insists on going home but that would not be a possibility Placing Alevin on buttock 12/17/20: Family training today at 10:00 Still has a stage 2 buttock decubitus ulcer Overall feels like he is doing much better Son at bedside when I rounded later today and he was evaluating his progress 12/16/20: Pt doing pretty well Bowels moved today Left midline is functioning Blood sugar 147 Stage 2 decubitus ulcer on the buttock Working really hard to stand 12/15/20: Overall doing well No issues BM+ No falls 12/14/20: Doing well BM+ Dyspnea still continues No pain 12/13/20: Patient more alert today and energized No pain reported Oxycodone helps the foot pain Participating with therapy 12/12/20: Pt doing a lot better Having a lot of pain, takes Oxycodone for his foot and leg pain Bowels are moving Sleeping better Pt very well could require a usp since he lives alone and is just not progressing well 12/11/20: No major issues Pretty much has plateaued and not made much progress with ambulation Epistaxis of the left nostril Nasal sprays will be continued Re-check and check with insurance coverage but he very well may need to be in a usp 12/10/20: Pt doing pretty well Slept on and off last night Remains on 4 liters of O2 Swelling in his feel is pretty minimal Did not use his BiPAP last night and that likely is the cause of not sleeping well 12/09/20: Pt slept pretty well Bowels are moving PLTs are 97, 000 Normal WBC down from when he first arrived Denies any significant issues Trying to get strong enough to walk 12/08/20: Slept well last night Remeron and Melatonin has helped him a lot Sinus tachy last night BM 12/06/20 so laxatives given No other issues 12/07/20: Slept better Yonker provided for phlem HR 60 Appreciate Cardiology 4L/min O2 BM 12/06/20 12/06/20: HR 122 Cardiology consulted Sugar 54 so decreasing insulin BM++ No pain reported No sleeping well so added hypnotics of Melatonin and Remeron 12/05/20: Patient doing well Worn out from fatigue Sugars are ok No pain reported Tachycardic so consulting Dr Carranza Midline was accidently pulled out so need a new one placed Checked meds and labs Review of Systems General: Fatigue Neurological: Weakness, Incoordination Objective Exam Vital Signs Vital Signs Date Time Temp Pulse Resp B/P (MAP) Pulse Ox O2 Delivery O2 Flow Rate FiO2 12/26/20 21:00 95 Nasal Cannula 4.00 12/26/20 20:00 110 117/65 (82) 12/26/20 18:00 36.4 20 Capillary Refill : General Appearance: No Apparent Distress, WD/WN, Anxious, Chronically ill, Obese HEENT: PERRL/EOMI, Normal ENT Inspection, Pharynx Normal Neck: Full Range of Motion, Normal Inspection, Non Tender, Supple, Carotid Bruit Respiratory: Chest Non Tender, No Accessory Muscle Use, No Respiratory Distress, Crackles, Decreased Breath Sounds Cardiovascular: Regular Rate, Rhythm, No Gallop, No JVD, No Murmur, Normal Peripheral Pulses Gastrointestinal: Normal Bowel Sounds, No Organomegaly, No Pulsatile Mass, Non Tender, Soft Back: Normal Inspection, No CVA Tenderness, No Vertebral Tenderness Extremity: Normal Capillary Refill, Normal Inspection, Normal Range of Motion, Non Tender, No Calf Tenderness, Pedal Edema Neurologic/Psychiatric: Alert, Oriented x3, No Motor/Sensory Deficits, life skills educator II- XII Norm as Tested, Depressed Affect, Motor Weakness Skin: Normal Color, Warm/Dry Lymphatic: No Adenopathy Results/Procedures Lab Patient resulted labs reviewed. FIM Transfers Therapy Code Descriptions/Definitions Functional [place] Measure: 0=Not Assessed/NA 4=Minimal Assistance 1=Total Assistance 5=Supervision or Setup 2=Maximal Assistance 6=Modified [place] 3=Moderate Assistance 7=Complete IndependenceSCALE: Activities may be completed with or without assistive devices. 0-Vlynfzubir-akbhekc completes the activity by him/herself with no assistance from a helper. 5-Set-up or Clean-up Assistance-helper sets up or cleans up; patient completes activity. [place] assists only prior to or following the activity. 4-Supervision or Touching Assistance-helper provides verbal cues and/or touching/steadying and/or contact guard assistance as patient completes a ctivity. Assistance may be provided throughout the activity or intermittently. 3-Partial/Moderate Assistance-helper does LESS THAN HALF the effort. [place] lifts, holds or supports trunk or limbs, but provides less than half the effort. 2-Substantial/Maximal Assistance-helper does MORE THAN HALF the effort. [place] lifts or holds trunk or limbs and provides more than half the effort. 1-Iapqliiip-taozbw does ALL the effort. Patient does none of the effort to complete the activity. Or, the assistance of 2 or more helpers is required for the patient to complete the activity. If activity was not attempted, code reason: 7-Patient Refused. 9-Not Applicable-not attempted and the patient did not perform the activity before the current illness, exacerbation or injury. 10-Not Attempted due to Environmental Limitations-(lack of equipment, weather restraints, etc.). 88-Not Attempted due to Medical Conditions or Safety Concerns. Roll Left to Right (QC): 6 Sit to Lying (QC): 6 Sit to Stand (QC): 2 Chair/Mpc-kx-Pfjop Xfer(QC): 3 Car Transfer (QC): 3 Gait Training Does the Patient Walk?: Yes Distance: 15' Walk 10 feet (QC): 4 Walk 50 ft with 2 Turns(QC): 88 Walk 150 ft (QC): 88 Walking 10ft/uneven surface-QC: 88 Gait Persons Needed: 1 Gait Assistive Device: FWW Wheelchair Training Does the Pt Use a Wheelchair?: Yes Wheel 50 ft with 2 turns (QC): 4 Wheel 150 ft (QC): 88 Type of Wheelchair: Manual Stair Training 1 Step (curb) (QC): 88 4 Steps (QC): 88 12 Steps (QC): 88 Balance Picking up an Object (QC): 88 ADL-Treatment Eating (QC): 6 Oral Hygiene (QC): 6 (Independent seated at sink in wheelchair.) Bathing Location: L Arm, R Arm, L Upper Leg, R Upper Leg, Chest, Abdomen, Perineal Area Shower/Bathe Self (QC): 7 (Pt. declines showering stating that he had an accident in bed last night, and so was "cleaned up" then.) Upper Body Dressing (QC): 5 Lower Body Dressing (QC): 2 (Pt. able to lean side to side in chair enough to pull pants over hips. 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 Obesity DM Neuropathy Anemia O2 dependence Plan: IRF protocol Monitor O2 O2 supplement 12/05/20: O2 maintained IRF protocol Cardiology consultation appreciated Midline replacement 12/06/20: Cardiology consult appreciated Decrease insulin Midline Monitor closely 12/07/20: Monitor closely O2 wean Increase acitivity Maintain Remeron and Melatonin 12/08/20: Monitor closely Check labs in am Monitor tachycardia Remeron and Melatonin 12/09/20: Labs normal Improved strength Weaning O2 Monitor insomnia Increase insulin 12/10/20: Monitor O2 Increase strength Severe myopathy of legs 12/11/20: Difficult to progress Continue therapy May need NHP 12/12/20: Pain control with Oxycodone Monitor bowels Monitor O2 12/13/20: Monitor pain Wean O2 CPAP mask seems to be working better 12/14/20: Improved status Stood up today with help O2 12/15/20: Wean O2 Monitor ambulation CPAP at night 12/16/20: Monitor progress Decubitus ulcer management Monitor BP 12/17/20: Family education/training today Monitor O2 CPAP with O2 12/18/20: Monitor O2 NH Wednesday Continue to work on stamina 12/19/20: Monitor O2 CPAP 12/20/20: Decubitus ulcer management Monitor O2 Replace grabber 12/21/20: Monitor O2 KRIS CPAP 12/22/20: DC Wednesday to MD Home O2 evaluation 12/23/20: DC midline DC tomorrow to MD Needs eye exam soon for blurry vision 12/24/20: DC on hold Monitor O2 12/25/20: Continue therapy Making significant progress 12/26/20: Monitor progress Standing now May be able to DC home? (1) COVID-19 (2) RICHY on CPAP (3) Obesity (4) Diabetes (5) Hypertension (6) Edema (7) Neuropathy (8) Anemia (9) Advanced age DEANNA BOO DO Dec 26, 2020 11:19
--- NOTE | 2020-12-26 11:22 | Physical Therapy Daily Note ---
PT Daily Note-Current Subjective Patient in WC pre tx, agrees to PT, has no complaints of pain. Appearance Patient in WC post tx at bedside, has nurse call, phone, tray, all needs met. Mental Status Patient Orientation: Person, Place, Situation Attachments: Oxygen Transfers SCALE: Activities may be completed with or without assistive devices. 4-Lejoeaerfr-raxafbd completes the activity by him/herself with no assistance from a helper. 5-Set-up or Clean-up Assistance-helper sets up or cleans up; patient completes activity. [place] assists only prior to or following the activity. 4-Supervision or Touching Assistance-helper provides verbal cues and/or touching/steadying and/or contact guard assistance as patient completes activity. Assistance may be provided throughout the activity or intermittently. 3-Partial/Moderate Assistance-helper does LESS THAN HALF the effort. [place] lifts, holds or supports trunk or limbs, but provides less than half the effort. 2-Substantial/Maximal Assistance-helper does MORE THAN HALF the effort. [place] lifts or holds trunk or limbs and provides more than half the effort. 4-Agszutrqd-jekzip does ALL the effort. Patient does none of the effort to complete the activity. Or, the assistance of 2 or more helpers is required for the patient to complete the activity. If activity was not attempted, code reason: 7-Patient Refused. 9-Not Applicable-not attempted and the patient did not perform the activity before the current illness, exacerbation or injury. 10-Not Attempted due to Environmental Limitations-(lack of equipment, weather restraints, etc.). 88-Not Attempted due to Medical Conditions or Safety Concerns. Weight Bearing Full Weight Bearing Full Weight Bearing Exercises Seated Therapy Exercises: Ankle pumps, Long arc quads, Hip flexion, Hip abd/add (with ball and RTB) Seated Reps: 20 Treatments LE exercise Assessment Current Status: Poor Progress Patient has worse endurance, needed several seated rest breaks, gets SOB with just seated exercises PT Short Term Goals Short Term Goals Time Frame: Dec 11, 2020 Roll Left & Right: 4 (met) Sit to lyin (met) Lying to sitting on side of be: 4 (met) Sit to stand: 3 Chair/fka-ig-tsnxt transfer: 3 Walk 10 feet: 3 Walk 50 feet with two turns: 3 PT Care Home Goals Epic Radiant Analyst Goals PT Care Home Goals Time Frame: Jan 01, 2021 Roll Left & Right (QC): 6 Sit to Lying (QC): 6 Lying-Sitting on Side/Bed(QC): 6 Sit to Stand (QC): 6 Chair/Mdo-tg-Rrskl Xfer(QC): 6 Toilet Transfer (QC): 6 Car Transfer (QC): 6 Does the Patient Walk: No and Walking Goal IS indicated Walk 10 feet (QC): 6 Walk 50ft with 2 Turns (QC): 6 Walk 150 ft (QC): 6 Walking 10ft on Uneven Surface: 4 1 Step (curb) (QC): 4 4 Steps (QC): 4 12 Steps (QC): 4 Picking up an Object (QC): 5 Does the Pt use WC or Scooter?: No Wheel 50 feet with 2 turns (QC: 9 Wheel 150 feet: 9 PT Plan Problem List Problem List: Activity Tolerance, Functional Strength, Safety, Balance, Gait, Transfer, Bed Mobility, ROM Treatment/Plan Treatment Plan: Continue Plan of Care Treatment Plan: Bed Mobility, Education, Functional Activity Erick, Functional Strength, Group Therapy, Gait, Safety, Therapeutic Exercise, Transfers Treatment Duration: Jan 01, 2021 Frequency: At least 5 of 7 days/Wk (IRF) Estimated Hrs Per Day: Other (see notation) Patient and/or Family Agrees t: Yes Safety Risks/Education Patient Education: Correct Positioning, Safety Issues Teaching Recipient: Patient Teaching Methods: Demonstration, Discussion Response to Teaching: Reinforcement Needed Time/GCodes Time In: 1105 Time Out: 1120 Total Billed Treatment Time: 15 Total Billed Treatment 1 visit EX JENSEN SNIDER PT Dec 26, 2020 11:22
--- NOTE | 2020-12-26 13:49 | Occupational Ther Daily Note ---
OT Current Status-Daily Note Subjective No pain reported. Appearance Pt. up in wheelchair with PT. Agrees to work with OT as well. Mental Status/Objective Patient Orientation: Person, Place, Time, Situation Attachments: Oxygen ADL-Treatment Therapy Code Descriptions/Definitions Functional [place] Measure: 0=Not Assessed/NA 4=Minimal Assistance 1=Total Assistance 5=Supervision or Setup 2=Maximal Assistance 6=Modified [place] 3=Moderate Assistance 7=Complete IndependenceSCALE: Activities may be completed with or without assistive devices. 2-Jbwyhegjuo-aqapwvj completes the activity by him/herself with no assistance from a helper. 5-Set-up or Clean-up Assistance-helper sets up or cleans up; patient completes activity. [place] assists only prior to or following the activity. 4-Supervision or Touching Assistance-helper provides verbal cues and/or touching/steadying and/or contact guard assistance as patient completes activity. Assistance may be provided throughout the activity or intermittently. 3-Partial/Moderate Assistance-helper does LESS THAN HALF the effort. [place] lifts, holds or supports trunk or limbs, but provides less than half the effort. 2-Substantial/Maximal Assistance-helper does MORE THAN HALF the effort. [place] lifts or holds trunk or limbs and provides more than half the effort. 6-Kcucjpfgm-zogepu does ALL the effort. Patient does none of the effort to complete the activity. Or, the assistance of 2 or more helpers is required for the patient to complete the activity. If activity was not attempted, code reason: 7-Patient Refused. 9-Not Applicable-not attempted and the patient did not perform the activity before the current illness, exacerbation or injury. 10-Not Attempted due to Environmental Limitations-(lack of equipment, weather restraints, etc.). 88-Not Attempted due to Medical Conditions or Safety Concerns. Eating (QC): 6 Oral Hygiene (QC): 6 Shower/Bathe Self (QC): 3 (Min assist to wash rear yo area. Pt. able to shower bilateral feet with LH sponge. Pt. able to wash all other parts as well.) Upper Body Dressing (QC): 5 Lower Body Dressing (QC): 3 (Mod assist) On/Off Footwear: 3 (Min assist) Toileting Hygiene (QC): 4 (urinal) Toilet Transfer (QC): 7 Other Treatment Pt. seen for co-treatment with PT due to need of skilled assistance x 2 for mobility and low endurance. Pt. stood with max x 2 several times for ambulation with walker, and ambulated more minimal distance this date. Please see PT note for distance. PT facilitated mobility with ambulation and then OT worked on ADL skills with pt. Pt. practiced multiple transfers, with mod/max x 2 for sit-ronan d. Sit-stand lift not utilized this date. Pt. agrees to shower and pt. transfers into shower with max x 2. Pt. able to shower and dress with assistance, (please see assistance needed above.) After ADLs, pt. transferred back to wheelchair with max x 2. Pt. requests to be up in wheelchair after ADL skills. All needs met. Education OT Patient Education: Correct positioning, Modified ADL techniques, Progress toward Goal/Update tx plan, Purpose of tx/functional activities, Reviewed precautions, Rehab process, Transfer techniques, Use of adapted equipment Teaching Recipient: Patient Teaching Methods: Demonstration, Discussion Response to Teaching: Verbalize Understanding, Return Demonstration OT Short Term Goals Short Term Goals Time Frame: Dec 11, 2020 Eatin Oral hygiene: 88 Toileting hygiene: 2 Shower/bathe self: 3 Upper body dressin Lower body dressin Putting on/taking off footwear: 6 OT Product Support Specialist Goals Product Support Specialist Goals Time Frame: Dec 25, 2020 Eating (QC): 6 Oral Hygiene (QC): 6 Toileting Hygiene (QC): 5 Shower/Bathe Self (QC): 5 Upper Body Dressing (QC): 6 Lower Body Dressing (QC): 4 On/Off Footwear (QC): 6 Additional Goals: 1-Demonstrate ADL Tasks, 2-Verbalize Understanding, 3- ImproveStrength/Erick 1=Demonstrate adherence to instructed precautions during ADL tasks. 2=Patient will verbalize/demonstrate understanding of assistive devices/modifications for ADL. 3=Patient will improve strength/tolerance for activity to enable patient to perform ADL's. OT Education/Plan Problem List/Assessment Assessment: Decreased Activ Tolerance, Dependent Transfers, Impaired Funct Bal ance, Impaired I ADL's, Impaired Self-Care Skills, Restricted Funct UE ROM Discharge Recommendations Plan/Recommendations: Continue POC Therapy Discharge Recommendati: Post Acute OT Treatment Plan/Plan of Care Treatment,Training & Education: Yes Patient would benefit from OT for education, treatment and training to promote independence in ADL's, mobility, safety and/or upper extremity function for ADL's. Plan of Care: ADL Retraining, Caregiver Training, Functional Mobility, Group Exercise/Act as Ind, UE Funct Exercise/Act, W/C Management Training Treatment Duration: Dec 25, 2020 Frequency: Modified Program (IRF) Estimated Hrs Per Day: 1.5 hours per day Agreement: Yes Rehab Potential: Fair Time/GCodes Start Time: 10:05 Stop Time: 11:00 Total Time Billed (hr/min): 55 Billed Treatment Time 1, FA x 25minutes, ADL x 30minutes CAMILA SINCLAIR OT Dec 26, 2020 13:49
--- NOTE | 2020-12-26 13:53 | Occupational Ther Daily Note ---
OT Current Status-Daily Note Subjective No pain reported. Mental Status/Objective Patient Orientation: Person, Place, Time, Situation ADL-Treatment Therapy Code Descriptions/Definitions Functional [place] Measure: 0=Not Assessed/NA 4=Minimal Assistance 1=Total Assistance 5=Supervision or Setup 2=Maximal Assistance 6=Modified [place] 3=Moderate Assistance 7=Complete IndependenceSCALE: Activities may be completed with or without assistive devices. 6-Lshfxriink-vcchgge completes the activity by him/herself with no assistance from a helper. 5-Set-up or Clean-up Assistance-helper sets up or cleans up; patient completes activity. [place] assists only prior to or following the activity. 4-Supervision or Touching Assistance-helper provides verbal cues and/or touching/steadying and/or contact guard assistance as patient completes activity. Assistance may be provided throughout the activity or intermittently. 3-Partial/Moderate Assistance-helper does LESS THAN HALF the effort. [place] lifts, holds or supports trunk or limbs, but provides less than half the effort. 2-Substantial/Maximal Assistance-helper does MORE THAN HALF the effort. [place] lifts or holds trunk or limbs and provides more than half the effort. 9-Ayxfbhhhs-iespkr does ALL the effort. Patient does none of the effort to complete the activity. Or, the assistance of 2 or more helpers is required for the patient to complete the activity. If activity was not attempted, code reason: 7-Patient Refused. 9-Not Applicable-not attempted and the patient did not perform the activity before the current illness, exacerbation or injury. 10-Not Attempted due to Environmental Limitations-(lack of equipment, weather restraints, etc.). 88-Not Attempted due to Medical Conditions or Safety Concerns. Other Treatment Pt. up in wheelchair. Agrees to work on UE exercises with OT for continued UE strength and overall endurance. Pt. completes 3 bilateral UE exercises x 15 reps each, x 2 sets, in all planes. Several brief rest breaks needed. Overall, pt. tolerated well. Pt. requests to be up in wheelchair at end of session. All needs met. Education OT Patient Education: Correct positioning, Exercise program, Modified ADL techniques, Progress toward Goal/Update tx plan, Purpose of tx/functional activities, Reviewed precautions, Rehab process, Transfer techniques Teaching Recipient: Patient Teaching Methods: Demonstration, Discussion Response to Teaching: Verbalize Understanding, Return Demonstration OT Short Term Goals Short Term Goals Time Frame: Dec 11, 2020 Eatin Oral hygiene: 88 Toileting hygiene: 2 Shower/bathe self: 3 Upper body dressin Lower body dressin Putting on/taking off footwear: 6 OT Group Home Goals Contract Serviceman Goals Time Frame: Dec 25, 2020 Eating (QC): 6 Oral Hygiene (QC): 6 Toileting Hygiene (QC): 5 Shower/Bathe Self (QC): 5 Upper Body Dressing (QC): 6 Lower Body Dressing (QC): 4 On/Off Footwear (QC): 6 Additional Goals: 1-Demonstrate ADL Tasks, 2-Verbalize Understanding, 3- ImproveStrength/Erick 1=Demonstrate adherence to instructed precautions during ADL tasks. 2=Patient will verbalize/demonstrate understanding of assistive devices/modifications for ADL. 3=Patient will improve strength/tolerance for activity to enable patient to perform ADL's. OT Education/Plan Problem List/Assessment Assessment: Decreased Activ Tolerance, Decreased UE Strength, Impaired I ADL's, Impaired Self-Care Skills, Restricted Funct UE ROM Discharge Recommendations Plan/Recommendations: Continue POC Therapy Discharge Recommendati: Post Acute OT Treatment Plan/Plan of Care Treatment,Training & Education: Yes Patient would benefit from OT for education, treatment and training to promote independence in ADL's, mobility, safety and/or upper extremity function for ADL's. Plan of Care: ADL Retraining, Caregiver Training, Functional Mobility, Group Exercise/Act as Ind, UE Funct Exercise/Act, W/C Management Training Treatment Duration: Dec 25, 2020 Frequency: Modified Program (IRF) Estimated Hrs Per Day: 1.5 hours per day Agreement: Yes Rehab Potential: Fair Time/GCodes Start Time: 11:40 Stop Time: 11:50 Total Time Billed (hr/min): 10 Billed Treatment Time 1, Ex CAMILA SINCLAIR OT Dec 26, 2020 13:53
--- NOTE | 2020-12-26 13:55 | Occupational Ther Daily Note ---
OT Current Status-Daily Note Subjective No pain reported. Mental Status/Objective Patient Orientation: Person, Place, Time, Situation ADL-Treatment Therapy Code Descriptions/Definitions Functional [place] Measure: 0=Not Assessed/NA 4=Minimal Assistance 1=Total Assistance 5=Supervision or Setup 2=Maximal Assistance 6=Modified [place] 3=Moderate Assistance 7=Complete IndependenceSCALE: Activities may be completed with or without assistive devices. 5-Nbxdmomgtj-zgwlwng completes the activity by him/herself with no assistance from a helper. 5-Set-up or Clean-up Assistance-helper sets up or cleans up; patient completes activity. [place] assists only prior to or following the activity. 4-Supervision or Touching Assistance-helper provides verbal cues and/or touching/steadying and/or contact guard assistance as patient completes activity. Assistance may be provided throughout the activity or intermittently. 3-Partial/Moderate Assistance-helper does LESS THAN HALF the effort. [place] lifts, holds or supports trunk or limbs, but provides less than half the effort. 2-Substantial/Maximal Assistance-helper does MORE THAN HALF the effort. [place] lifts or holds trunk or limbs and provides more than half the effort. 9-Vrnpqawru-oajygy does ALL the effort. Patient does none of the effort to complete the activity. Or, the assistance of 2 or more helpers is required for the patient to complete the activity. If activity was not attempted, code reason: 7-Patient Refused. 9-Not Applicable-not attempted and the patient did not perform the activity before the current illness, exacerbation or injury. 10-Not Attempted due to Environmental Limitations-(lack of equipment, weather restraints, etc.). 88-Not Attempted due to Medical Conditions or Safety Concerns. Other Treatment Pt. up in reclining chair. Pt. asleep but does wake up. OT asks if he would like to be assisted back to bed. He would not. Pt. would like to stay in reclining chair. OT and pt. talk about discharge plans, and need for possible equipment later on. Pt. verbalizes good understanding of equipment needs at this point, and resources that he can use later if needed after discharge from skilled unit. All needs met up in chair. Education OT Patient Education: Correct positioning Teaching Recipient: Patient Teaching Methods: Discussion Response to Teaching: Verbalize Understanding, Return Demonstration OT Short Term Goals Short Term Goals Time Frame: Dec 11, 2020 Eatin Oral hygiene: 88 Toileting hygiene: 2 Shower/bathe self: 3 Upper body dressin Lower body dressin Putting on/taking off footwear: 6 OT Automobile Bumper Straightener Goals Care Home Goals Time Frame: Dec 25, 2020 Eating (QC): 6 Oral Hygiene (QC): 6 Toileting Hygiene (QC): 5 Shower/Bathe Self (QC): 5 Upper Body Dressing (QC): 6 Lower Body Dressing (QC): 4 On/Off Footwear (QC): 6 Additional Goals: 1-Demonstrate ADL Tasks, 2-Verbalize Understanding, 3- ImproveStrength/Erick 1=Demonstrate adherence to instructed precautions during ADL tasks. 2=Patient will verbalize/demonstrate understanding of assistive devices/modifications for ADL. 3=Patient will improve strength/tolerance for activity to enable patient to perform ADL's. OT Education/Plan Problem List/Assessment Assessment: Decreased Activ Tolerance Discharge Recommendations Plan/Recommendations: Continue POC Therapy Discharge Recommendati: Post Acute OT Treatment Plan/Plan of Care Treatment,Training & Education: Yes Patient would benefit from OT for education, treatment and training to promote independence in ADL's, mobility, safety and/or upper extremity function for ADL's. Plan of Care: ADL Retraining, Caregiver Training, Functional Mobility, Group Exercise/Act as Ind, UE Funct Exercise/Act Treatment Duration: Dec 25, 2020 Frequency: Modified Program (IRF) Estimated Hrs Per Day: 1.5 hours per day Agreement: Yes Rehab Potential: Fair Time/GCodes Start Time: 13:35 Stop Time: 13:45 Total Time Billed (hr/min): 10 Billed Treatment Time 1, ADL CAMILA SINCLAIR OT Dec 26, 2020 13:55
[2020-12-26 18:00] VITALS: BP 125/66
[2020-12-26] MEDS: MELATONIN 3 MG TABLET PO SCH (19:58)
[2020-12-26] MEDS: MIRTAZAPINE 15 MG (REMERON) TAB PO SCH (19:59)
[2020-12-26 20:00] VITALS: BP 117/65
[2020-12-27] MEDS: inSUlin ASPART (NovoLOG) 1 UNIT/0.01 ML (CHARGE PER UNIT) SC SCH ×4 (05:31→20:49)
[2020-12-27 05:58] VITALS: BP 120/66
[2020-12-27] MEDS: UMECLIDINIUM BROMIDE (INCRUSE ELLIPTA) 7'S IH SCH (08:00)
[2020-12-27] MEDS: ADVAIR HFA 115/21 MCG INHALER 8 GM IH SCH ×2 (08:00→20:48)
[2020-12-27] MEDS: SENNA W/DOCUSATE (SENOKOT S) TABLET PO SCH ×2 (08:39→20:49)
[2020-12-27] MEDS: DOCUSATE SODIUM 100 MG (COLACE) CAP PO SCH ×2 (08:39→20:49)
[2020-12-27] MEDS: polyethylene glycoL POWDER 17 GM (MIRALAX) PACK PO SCH ×2 (08:39→20:50)
[2020-12-27] MEDS: ASPIRIN 81 MG CHEW (CHILDREN'S ASA) PO SCH (08:46)
[2020-12-27] MEDS: TAMSULOSIN 0.4 MG (FLOMAX) CAP PO SCH (08:46)
[2020-12-27] MEDS: VITAMIN D3 25 MCG (1,000 UNITS) TABLET PO SCH (08:46)
[2020-12-27] MEDS: PANTOPRAZOLE 40 MG (PROTONIX) TAB PO SCH (08:47)
[2020-12-27] MEDS: GABAPENTIN 100 MG (NEURONTIN) CAP PO SCH ×3 (08:47→20:50)
[2020-12-27] MEDS: LOSARTAN 25 MG (COZAAR) TAB PO SCH (08:47)
[2020-12-27] MEDS: FINASTERIDE (PROSCAR) 5 MG TAB PO SCH (08:47)
[2020-12-27] MEDS: APIXABAN 5 MG (ELIQUIS) TABLET PO SCH ×2 (08:47→20:49)
[2020-12-27] MEDS: predniSONE 10 MG TAB PO SCH (08:47)
[2020-12-27] MEDS: ZINC OXIDE 16% OINT (BUTT PASTE) 57 GM TUBE TOP PRN ×2 (08:47→20:42)
[2020-12-27] MEDS: SALIVA STIMULANT MOUTH SPRAY (BIOTENE) 1.5 OZ MM SCH ×5 (08:47→20:42)
[2020-12-27] MEDS: ASCORBIC ACID (VIT C) 500 MG TABLET PO SCH ×2 (08:47→17:28)
[2020-12-27] MEDS: meTOprolol TARTRATE 50 MG (LOPRESSOR) TAB PO SCH ×2 (08:47→20:54)
[2020-12-27] MEDS: FLUTICASONE NASAL SPRAY (FLONASE) 16 GM BTL NS SCH (08:48)
[2020-12-27] MEDS: SALINE NASAL SPRAY (OCEAN) 45 ML BTL NS SCH ×3 (08:49→20:46)
--- NOTE | 2020-12-27 09:41 | PM&R Progress Note ---
Subjective HPI/CC On Admission Date Seen by Provider: Dec 27, 2020 Time Seen by Provider: 09:45 Subjective/Events-last exam 12/27/20: Transferring without the site to stand now Improved overall BM+ Alevan vs. butt paste on buttock He sits in chair all day long on computer 12/26/20: Insurance declined skilled for now Standing and actually progressing well 2L/min and doing well DC scheduled APAP TID 12/25/20: Awaiting correction placement Actually working pretty well with therapy Denies any significant new pain Blurry vision still continues Didnt sleep real well last night 12/24/20: Eyes were better but the more he works on the computer the blurry issues return DC is on hold due to NH processes 12/23/20: Pt doing pretty well Buttock decubitus ulcer needs further treatment Discharge planned for tomorrow Hemaglobin 9.3 Midline will be discontinued at his request 12/22/20: Home O2 evaluation tomorrow for DC Wednesday DM education will be provided DC planned for NH 12/21/20: Doing well Slept well BM today Edema improved on KRIS's Decubitus ulcers worsened due to sitting in chair all day long IS use increased 12/20/20: Now has daily complaints about minor things since he was notified last week he would need a [place] Nurse broke his grabber so will obtain replacement for him Butt paste placed on buttocks Stage 2 No other issues 12/19/20: No major issues Bowels are moving correction placement on Wednesday12/18/20: Discharge Wednesday to the correction Family training did not go well Son was there but did not engage Insists on going home but that would not be a possibility Placing Alevin on buttock 12/17/20: Family training today at 10:00 Still has a stage 2 buttock decubitus ulcer Overall feels like he is doing much better Son at bedside when I rounded later today and he was evaluating his progress 12/16/20: Pt doing pretty well Bowels moved today Left midline is functioning Blood sugar 147 Stage 2 decubitus ulcer on the buttock Working really hard to stand 12/15/20: Overall doing well No issues BM+ No falls 12/14/20: Doing well BM+ Dyspnea still continues No pain 12/13/20: Patient more alert today and energized No pain reported Oxycodone helps the foot pain Participating with therapy 12/12/20: Pt doing a lot better Having a lot of pain, takes Oxycodone for his foot and leg pain Bowels are moving Sleeping better Pt very well could require a correction since he lives alone and is just not progressing well 12/11/20: No major issues Pretty much has plateaued and not made much progress with ambulation Epistaxis of the left nostril Nasal sprays will be continued Re-check and check with insurance coverage but he very well may need to be in a correction 12/10/20: Pt doing pretty well Slept on and off last night Remains on 4 liters of O2 Swelling in his feel is pretty minimal Did not use his BiPAP last night and that likely is the cause of not sleeping well 12/09/20: Pt slept pretty well Bowels are moving PLTs are 97, 000 Normal WBC down from 21 when he first arrived Denies any significant issues Trying to get strong enough to walk 12/08/20: Slept well last night Remeron and Melatonin has helped him a lot Sinus tachy last night BM 12/06/20 so laxatives given No other issues 12/07/20: Slept better Yonker provided for phlem HR 60 Appreciate Cardiology 4L/min O2 BM 12/06/20 12/06/20: HR 122 Cardiology consulted Sugar 54 so decreasing insulin BM++ No pain reported No sleeping well so added hypnotics of Melatonin and Remeron 12/05/20: Patient doing well Worn out from fatigue Sugars are ok No pain reported Tachycardic so consulting Dr Carranza Midline was accidently pulled out so need a new one placed Checked meds and labs Review of Systems General: Fatigue Pulmonary: Dyspnea Objective Exam Vital Signs Vital Signs Date Time Temp Pulse Resp B/P (MAP) Pulse Ox O2 Delivery O2 Flow Rate FiO2 12/27/20 20:00 97 Nasal Cannula 4.00 12/27/20 16:00 36.2 104 16 103/60 (74) Capillary Refill : General Appearance: No Apparent Distress, WD/WN, Anxious, Chronically ill, Obese HEENT: PERRL/EOMI, Normal ENT Inspection, Pharynx Normal Neck: Full Range of Motion, Normal Inspection, Non Tender, Supple, Carotid Bruit Respiratory: Chest Non Tender, No Accessory Muscle Use, No Respiratory Distress, Crackles, Decreased Breath Sounds Cardiovascular: Regular Rate, Rhythm, No Gallop, No JVD, No Murmur, Normal Peripheral Pulses Gastrointestinal: Normal Bowel Sounds, No Organomegaly, No Pulsatile Mass, Non Tender, Soft Back: Normal Inspection, No CVA Tenderness, No Vertebral Tenderness Extremity: Normal Capillary Refill, Normal Inspection, Normal Range of Motion, Non Tender, No Calf Tenderness, Pedal Edema Neurologic/Psychiatric: Alert, Oriented x3, No Motor/Sensory Deficits, timber faller II- XII Norm as Tested, Depressed Affect, Motor Weakness Skin: Normal Color, Warm/Dry Lymphatic: No Adenopathy Results/Procedures Lab Patient resulted labs reviewed. FIM Transfers Therapy Code Descriptions/Definitions Functional [place] Measure: 0=Not Assessed/NA 4=Minimal Assistance 1=Total Assistance 5=Supervision or Setup 2=Maximal Assistance 6=Modified [place] 3=Moderate Assistance 7=Complete IndependenceSCALE: Activities may be completed with or without assistive devices. 7-Ljdwwxxecq-zijvzhs completes the activity by him/herself with no assistance from a helper. 5-Set-up or Clean-up Assistance-helper sets up or cleans up; patient completes activity. [place] assists only prior to or following the activity. 4-Supervision or Touching Assistance-helper provides verbal cues and/or touching/steadying and/or contact guard assistance as patient completes activity. Assistance may be provided throughout the activity or intermittently. 3-Partial/Moderate Assistance-helper does LESS THAN HALF the effort. [place] lifts, holds or supports trunk or limbs, but provides less than half the effort. 2-Substantial/Maximal Assistance-helper does MORE THAN HALF the effort. [place] lifts or holds trunk or limbs and provides more than half the effort. 5-Exftgxags-vhgvzl does ALL the effort. Patient does none of the effort to complete the activity. Or, the assistance of 2 or more helpers is required for the patient to complete the activity. If activity was not attempted, code reason: 7-Patient Refused. 9-Not Applicable-not attempted and the patient did not perform the activity before the current illness, exacerbation or injury. 10-Not Attempted due to Environmental Limitations-(lack of equipment, weather restraints, etc.). 88-Not Attempted due to Medical Conditions or Safety Concerns. Roll Left to Right (QC): 6 Sit to Lying (QC): 6 Sit to Stand (QC): 2 Chair/Zde-cc-Qoans Xfer(QC): 3 Car Transfer (QC): 3 Gait Training Does the Patient Walk?: Yes Distance: 15' Walk 10 feet (QC): 4 Walk 50 ft with 2 Turns(QC): 88 Walk 150 ft (QC): 88 Walking 10ft/uneven surface-QC: 88 Gait Persons Needed: 1 Gait Assistive Device: FWW Wheelchair Training Does the Pt Use a Wheelchair?: Yes Wheel 50 ft with 2 turns (QC): 4 Wheel 150 ft (QC): 88 Type of Wheelchair: Manual Stair Training 1 Step (curb) (QC): 88 4 Steps (QC): 88 12 Steps (QC): 88 Balance Picking up an Object (QC): 88 ADL-Treatment Eating (QC): 6 Oral Hygiene (QC): 6 Bathing Location: L Arm, R Arm, L Upper Leg, R Upper Leg, Chest, Abdomen, Perineal Area Shower/Bathe Self (QC): 3 (Min assist to wash rear yo area. Pt. able to shower bilateral feet with LH sponge. Pt. 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 Obesity DM Neuropathy Anemia O2 dependence Plan: IRF protocol Monitor O2 O2 supplement 12/05/20: O2 maintained IRF protocol Cardiology consultation appreciated Midline replacement 12/06/20: Cardiology consult appreciated Decrease insulin Midline Monitor closely 12/07/20: Monitor closely O2 wean Increase acitivity Maintain Remeron and Melatonin 12/08/20: Monitor closely Check labs in am Monitor tachycardia Remeron and Melatonin 12/09/20: Labs normal Improved strength Weaning O2 Monitor insomnia Increase insulin 12/10/20: Monitor O2 Increase strength Severe myopathy of legs 12/11/20: Difficult to progress Continue therapy May need NHP 12/12/20: Pain control with Oxycodone Monitor bowels Monitor O2 12/13/20: Monitor pain Wean O2 CPAP mask seems to be working better 12/14/20: Improved status Stood up today with help O2 12/15/20: Wean O2 Monitor ambulation CPAP at night 12/16/20: Monitor progress Decubitus ulcer management Monitor BP 12/17/20: Family education/training today Monitor O2 CPAP with O2 12/18/20: Monitor O2 NH Wednesday Continue to work on stamina 12/19/20: Monitor O2 CPAP 12/20/20: Decubitus ulcer management Monitor O2 Replace grabber 12/21/20: Monitor O2 KRIS CPAP 12/22/20: DC Wednesday to [place] Home O2 evaluation 12/23/20: DC midline DC tomorrow to [place] Needs eye exam soon for blurry vision 12/24/20: DC on hold Monitor O2 12/25/20: Continue therapy Making significant progress 12/26/20: Monitor progress Standing now May be able to DC home? 12/27/20: Much improved status Improved standing No pain reported (1) COVID-19 (2) RICHY on CPAP (3) Obesity (4) Diabetes (5) Hypertension (6) Edema (7) Neuropathy (8) Anemia (9) Advanced age DEANNA BOO DO Dec 27, 2020 09:41
--- NOTE | 2020-12-27 10:58 | Physical Therapy Daily Note ---
PT Daily Note-Current Subjective Patient in recliner pre tx, agrees to PT, has no complaints of pain, will be co- treating with OT due to poor patient mobility, strength, endurance, coordinate UE and LE during activity, safety and reduce risk of falls. Appearance Patient in WC at bedside post tx with nurse call, phone, tray, all needs met. Mental Status Patient Orientation: Normal For Age Attachments: Oxygen Transfers SCALE: Activities may be completed with or without assistive devices. 5-Uxfnmgwhrg-sivffbt completes the activity by him/herself with no assistance from a helper. 5-Set-up or Clean-up Assistance-helper sets up or cleans up; patient completes activity. [place] assists only prior to or following the activity. 4-Supervision or Touching Assistance-helper provides verbal cues and/or touching/steadying and/or contact guard assistance as patient completes activity. Assistance may be provided throughout the activity or intermittently. 3-Partial/Moderate Assistance-helper does LESS THAN HALF the effort. [place] lifts, holds or supports trunk or limbs, but provides less than half the effort. 2-Substantial/Maximal Assistance-helper does MORE THAN HALF the effort. [place] lifts or holds trunk or limbs and provides more than half the effort. 1-Pnvopiykl-qfikug does ALL the effort. Patient does none of the effort to complete the activity. Or, the assistance of 2 or more helpers is required for the patient to complete the activity. If activity was not attempted, code reason: 7-Patient Refused. 9-Not Applicable-not attempted and the patient did not perform the activity before the current illness, exacerbation or injury. 10-Not Attempted due to Environmental Limitations-(lack of equipment, weather restraints, etc.). 88-Not Attempted due to Medical Conditions or Safety Concerns. Sit to Stand (QC): 2 Chair/Fqs-ct-Jsuwl Xfer(QC): 3 Weight Bearing Full Weight Bearing Full Weight Bearing Gait Training Distance: 20'x3 Walk 10 feet (QC): 4 Gait Assistive Device: FWW WC follow, unsteady gait, wide [place], very SOB afterward, rest break between bout of ambulation Exercises standing activity in parallel bars while using UE's x3 Treatments PT performed transfers, ambulation, standing assist during UE activity, OT worked in UE activity, safety and UE positioning during functional mobility Assessment Current Status: Fair Progress improved endurance today PT Short Term Goals Short Term Goals Time Frame: Dec 11, 2020 Roll Left & Right: 4 (met) Sit to lyin (met) Lying to sitting on side of be: 4 (met) Sit to stand: 3 Chair/sba-ss-jqcya transfer: 3 Walk 10 feet: 3 Walk 50 feet with two turns: 3 PT Skilled Nursing Goals Vp Strategic Planning Goals PT Vp Strategic Planning Goals Time Frame: Jan 01, 2021 Roll Left & Right (QC): 6 Sit to Lying (QC): 6 Lying-Sitting on Side/Bed(QC): 6 Sit to Stand (QC): 6 Chair/Hve-po-Ppgaz Xfer(QC): 6 Toilet Transfer (QC): 6 Car Transfer (QC): 6 Does the Patient Walk: No and Walking Goal IS indicated Walk 10 feet (QC): 6 Walk 50ft with 2 Turns (QC): 6 Walk 150 ft (QC): 6 Walking 10ft on Uneven Surface: 4 1 Step (curb) (QC): 4 4 Steps (QC): 4 12 Steps (QC): 4 Picking up an Object (QC): 5 Does the Pt use WC or Scooter?: No Wheel 50 feet with 2 turns (QC: 9 Wheel 150 feet: 9 PT Plan Problem List Problem List: Activity Tolerance, Functional Strength, Safety, Balance, Gait, Transfer, Bed Mobility, ROM Treatment/Plan Treatment Plan: Continue Plan of Care Treatment Plan: Bed Mobility, Education, Functional Activity Erick, Functional Strength, Group Therapy, Gait, Safety, Therapeutic Exercise, Transfers Treatment Duration: Jan 01, 2021 Frequency: At least 5 of 7 days/Wk (IRF) Estimated Hrs Per Day: Other (see notation) Patient and/or Family Agrees t: Yes Safety Risks/Education Patient Education: Gait Training, Transfer Techniques, Correct Positioning, Safety Issues Teaching Recipient: Patient Teaching Methods: Demonstration, Discussion Response to Teaching: Reinforcement Needed Time/GCodes Time In: 1000 Time Out: 1100 Total Billed Treatment Time: 60 Total Billed Treatment 1 visit FA 60' co-treated with OT for 60' JENSEN AMBRIZ PT Dec 27, 2020 10:58
--- NOTE | 2020-12-27 11:05 | Occupational Ther Daily Note ---
OT Current Status-Daily Note Subjective Pt AxO. Pt agrees to tx, denies pain. OT individual tx: [id number] OT/ PT co-treat: [id number]. Co-treat rendered due to decreased fx activity tolerance/ endurance/ LE/ UE strength and dependent transfers. OT addresses ADLs, UE movement, problem solving, energy conservation, breath management while PT addresses LE movement, LE strength, transfers, ambulation. Mental Status/Objective Patient Orientation: Person, Place, Situation, Normal For Age Attachments: Oxygen (3.5-4L) ADL-Treatment Therapy Code Descriptions/Definitions Functional [place] Measure: 0=Not Assessed/NA 4=Minimal Assistance 1=Total Assistance 5=Supervision or Setup 2=Maximal Assistance 6=Modified [place] 3=Moderate Assistance 7=Complete IndependenceSCALE: Activities may be completed with or without assistive devices. 7-Pnxeuinhqa-ezfpclu completes the activity by him/herself with no assistance from a helper. 5-Set-up or Clean-up Assistance-helper sets up or cleans up; patient completes activity. [place] assists only prior to or following the activity. 4-Supervision or Touching Assistance-helper provides verbal cues and/or touching/steadying and/or contact guard assistance as patient completes activity. Assistance may be provided throughout the activity or intermittently. 3-Partial/Moderate Assistance-helper does LESS THAN HALF the effort. [place] lifts, holds or supports trunk or limbs, but provides less than half the effort. 2-Substantial/Maximal Assistance-helper does MORE THAN HALF the effort. [place] lifts or holds trunk or limbs and provides more than half the effort. 4-[place]-nykclu does ALL the effort. Patient does none of the effort to complete the activity. Or, the assistance of 2 or more helpers is required for the patient to complete the activity. If activity was not attempted, code reason: 7-Patient Refused. 9-Not Applicable-not attempted and the patient did not perform the activity before the current illness, exacerbation or injury. 10-Not Attempted due to Environmental Limitations-(lack of equipment, weather restraints, etc.). 88-Not Attempted due to Medical Conditions or Safety Concerns. Eating (QC): 6 Shower/Bathe Self (QC): 7 Upper Body Dressing (QC): 5 (s/u) Lower Body Dressing (QC): 1 (Due to need of Ax2 (PT assist sit to stand, OT addresses pant hike). THough pt able to don over BLE and hike to yo area while seated.) On/Off Footwear: 6 (IND sock doffing (with AE) and donning of shoes IND.) Other Treatment OT individual tx: [id number] OT/ PT co-treat: [id number]. Co-treat rendered due to decreased fx activity alysha ance/ endurance/ LE/ UE strength and dependent transfers. OT addresses ADLs, UE movement, problem solving, energy conservation, breath management while PT addresses LE movement, LE strength, transfers, ambulation. Pt completes shirt/ pant doff/ donning in chair prior to PT assist. PT assists with sit to stands with max A x2 at times. Pt's pants donned over hips. Pt propels self to gym in w/c. Rest break initiated intermittently. Pt sit to stand max-mod Ax2, ambulates with walker 3x (breaks between) from either end of gym with OT/ PT assist. Pt then completes stance in parallel bars, completing RUE hand strengthening/ reaching task in stance. Upon seated position, pt completes arm arc task, cues for rest break/ breath. Pt able to then regulate rest breaks IND. Pt completes this sequence 3x. Returns to room, pt requests to stay in w/c end of session, all needs met, call light in reach. Education OT Patient Education: Correct positioning, Exercise program, Home exercise program, Modified ADL techniques, Progress toward Goal/Update tx plan, Purpose of tx/functional activities, Safety issues, Transfer techniques Teaching Recipient: Patient Teaching Methods: Demonstration, Discussion Response to Teaching: Verbalize Understanding, Return Demonstration, Reinforcement Needed OT Short Term Goals Short Term Goals Time Frame: Dec 11, 2020 Eatin Oral hygiene: 88 Toileting hygiene: 2 Shower/bathe self: 3 Upper body dressin Lower body dressin Putting on/taking off footwear: 6 OT Shelter Goals Shelter Goals Time Frame: Dec 25, 2020 Eating (QC): 6 Oral Hygiene (QC): 6 Toileting Hygiene (QC): 5 Shower/Bathe Self (QC): 5 Upper Body Dressing (QC): 6 Lower Body Dressing (QC): 4 On/Off Footwear (QC): 6 Additional Goals: 1-Demonstrate ADL Tasks, 2-Verbalize Understanding, 3- ImproveStrength/[place] 1=Demonstrate adherence to instructed precautions during ADL tasks. 2=Patient will verbalize/demonstrate understanding of assistive devices/modifications for ADL. 3=Patient will improve strength/tolerance for activity to enable patient to perform ADL's. OT Education/Plan Problem List/Assessment Assessment: Decreased Activ Tolerance, Decreased UE Strength, Dependent Transfers, Edema, Impaired Bed Mobility, Impaired Funct Balance, Impaired I ADL's, Impaired Self-Care Skills Discharge Recommendations Plan/Recommendations: Continue POC Therapy Discharge Recommendati: Home & Family, Post Acute OT Treatment Plan/Plan of Care Treatment,Training & Education: Yes Patient would benefit from OT for education, treatment and training to promote independence in ADL's, mobility, safety and/or upper extremity function for ADL's. Plan of Care: ADL Retraining, Caregiver Training, Functional Mobility, Group Exercise/Act as Ind, UE Funct Exercise/Act Treatment Duration: Dec 25, 2020 Frequency: Modified Program (IRF) Estimated Hrs Per Day: 1.5 hours per day Agreement: Yes Rehab Potential: Fair Time/GCodes Start Time: 09:45 Stop Time: 11:00 Total Time Billed (hr/min): 75 Billed Treatment Time OT individual tx: [id number] OT/ PT co-treat: [id number]. Co-treat rendered due to decreased fx activity tolerance/ endurance/ LE/ UE strength and dependent transfers. OT addresses ADLs, UE movement, problem solving, energy conservation, breath management while PT addresses LE movement, LE strength, transfers, ambulation. 1, ADL (15), EX 4 (60)= 75 CHAPARRO GOLDEN OTR Dec 27, 2020 11:05
--- NOTE | 2020-12-27 15:04 | Physical Therapy Daily Note ---
PT Daily Note-Current Subjective Pt presents sitting up in [facility] upon arrival to room, pt upset about change in therapy schedule stating "I have already started my therapy." Throughout session, pt vocalizes his frustration that he was unable to DC to a SNF in [place] stating "I thought I was getting closer to home." Appearance Following session, pt up in [facility] with call light and phone within reach. All needs met at this time. Mental Status Patient Orientation: Person, Place, Situation Attachments: Oxygen Transfers SCALE: Activities may be completed with or without assistive devices. 0-Zxyxgmqvyx-erhpfxn completes the activity by him/herself with no assistance from a helper. 5-Set-up or Clean-up Assistance-helper sets up or cleans up; patient completes activity. [place] assists only prior to or following the activity. 4-Supervision or Touching Assistance-helper provides verbal cues and/or touching/steadying and/or contact guard assistance as patient completes activity. Assistance may be provided throughout the activity or intermittently. 3-Partial/Moderate Assistance-helper does LESS THAN HALF the effort. [place] lifts, holds or supports trunk or limbs, but provides less than half the effort. 2-Substantial/Maximal Assistance-helper does MORE THAN HALF the effort. [place] lifts or holds trunk or limbs and provides more than half the effort. 6-[place]pvdhhf[place] does ALL the effort. Patient does none of the effort to complete the activity. Or, the assistance of 2 or more helpers is required for the patient to complete the activity. If activity was not attempted, code reason: 7-Patient Refused. 9-Not Applicable-not attempted and the patient did not perform the activity before the current illness, exacerbation or injury. 10-Not Attempted due to Environmental Limitations-(lack of equipment, weather restraints, etc.). 88-Not Attempted due to Medical Conditions or Safety Concerns. Weight Bearing Full Weight Bearing Full Weight Bearing Exercises Seated Therapy Exercises: Ankle pumps, Long arc quads, Hip flexion, Kicking activity, Hamstring Curls, Hip abd/add, Glut set Seated Reps: 20 Assessment Current Status: Fair Progress Pt emotional regarding discharge plans this date. Good effort given with seated exercises this afternoon. PT Short Term Goals Short Term Goals Time Frame: Dec 11, 2020 Roll Left & Right: 4 (met) Sit to lyin (met) Lying to sitting on side of be: 4 (met) Sit to stand: 3 Chair/zlc-ju-lgikc transfer: 3 Walk 10 feet: 3 Walk 50 feet with two turns: 3 PT [facility] Goals Prepress Technician Goals PT [facility] Goals Time Frame: Jan 01, 2021 Roll Left & Right (QC): 6 Sit to Lying (QC): 6 Lying-Sitting on Side/Bed(QC): 6 Sit to Stand (QC): 6 Chair/Lzf-ny-Yugtl Xfer(QC): 6 Toilet Transfer (QC): 6 Car Transfer (QC): 6 Does the Patient Walk: No and Walking Goal IS indicated Walk 10 feet (QC): 6 Walk 50ft with 2 Turns (QC): 6 Walk 150 ft (QC): 6 Walking 10ft on Uneven Surface: 4 1 Step (curb) (QC): 4 4 Steps (QC): 4 12 Steps (QC): 4 Picking up an Object (QC): 5 Does the Pt use WC or Scooter?: No Wheel 50 feet with 2 turns (QC: 9 Wheel 150 feet: 9 PT Plan Problem List Problem List: Activity Tolerance, Functional Strength, Safety, Balance, Gait, Transfer, Bed Mobility, ROM Treatment/Plan Treatment Plan: Continue Plan of Care Treatment Plan: Bed Mobility, Education, Functional Activity Erick, Functional Strength, Group Therapy, Gait, Safety, Therapeutic Exercise, Transfers Treatment Duration: Jan 01, 2021 Frequency: At least 5 of 7 days/Wk (IRF) Estimated Hrs Per Day: Other (see notation) Patient and/or Family Agrees t: Yes Time/GCodes Time In: 1400 Time Out: 1415 Total Billed Treatment Time: 15 Total Billed Treatment 1 visit EX (15') DENILSON RODRIGUEZ PT Dec 27, 2020 15:04
[2020-12-27 16:00] VITALS: BP 103/60
[2020-12-27] MEDS: MELATONIN 3 MG TABLET PO SCH (20:50)
[2020-12-27] MEDS: MIRTAZAPINE 15 MG (REMERON) TAB PO SCH (20:50)
[2020-12-28 05:47] VITALS: BP 120/69
[2020-12-28] MEDS: inSUlin ASPART (NovoLOG) 1 UNIT/0.01 ML (CHARGE PER UNIT) SC SCH ×4 (05:49→20:32)
[2020-12-28] MEDS: ADVAIR HFA 115/21 MCG INHALER 8 GM IH SCH ×2 (07:27→20:54)
[2020-12-28] MEDS: UMECLIDINIUM BROMIDE (INCRUSE ELLIPTA) 7'S IH SCH (07:27)
[2020-12-28] MEDS: LOSARTAN 25 MG (COZAAR) TAB PO SCH (09:28)
[2020-12-28] MEDS: ASPIRIN 81 MG CHEW (CHILDREN'S ASA) PO SCH (09:28)
[2020-12-28] MEDS: PANTOPRAZOLE 40 MG (PROTONIX) TAB PO SCH (09:28)
[2020-12-28] MEDS: SENNA W/DOCUSATE (SENOKOT S) TABLET PO SCH ×2 (09:28→20:34)
[2020-12-28] MEDS: VITAMIN D3 25 MCG (1,000 UNITS) TABLET PO SCH (09:28)
[2020-12-28] MEDS: DOCUSATE SODIUM 100 MG (COLACE) CAP PO SCH ×2 (09:28→20:34)
[2020-12-28] MEDS: TAMSULOSIN 0.4 MG (FLOMAX) CAP PO SCH (09:28)
[2020-12-28] MEDS: ASCORBIC ACID (VIT C) 500 MG TABLET PO SCH ×2 (09:29→18:01)
[2020-12-28] MEDS: meTOprolol TARTRATE 50 MG (LOPRESSOR) TAB PO SCH ×2 (09:29→20:31)
[2020-12-28] MEDS: GABAPENTIN 100 MG (NEURONTIN) CAP PO SCH ×3 (09:29→20:31)
[2020-12-28] MEDS: predniSONE 10 MG TAB PO SCH (09:29)
[2020-12-28] MEDS: APIXABAN 5 MG (ELIQUIS) TABLET PO SCH ×2 (09:31→20:32)
[2020-12-28] MEDS: FINASTERIDE (PROSCAR) 5 MG TAB PO SCH (09:31)
[2020-12-28] MEDS: FLUTICASONE NASAL SPRAY (FLONASE) 16 GM BTL NS SCH (09:36)
[2020-12-28] MEDS: SALIVA STIMULANT MOUTH SPRAY (BIOTENE) 1.5 OZ MM SCH ×4 (09:36→20:31)
[2020-12-28] MEDS: SALINE NASAL SPRAY (OCEAN) 45 ML BTL NS SCH ×3 (09:37→20:45)
[2020-12-28] MEDS: polyethylene glycoL POWDER 17 GM (MIRALAX) PACK PO SCH ×2 (09:37→20:30)
--- NOTE | 2020-12-28 11:07 | Physical Therapy Daily Note ---
PT Daily Note-Current Subjective Pt is in the wheelchair working on his computer. He is agreeable to tx. Mental Status Patient Orientation: Person, Place, Time, Situation Attachments: Oxygen Transfers SCALE: Activities may be completed with or without assistive devices. 1-Jipiabfrvj-qyihfyt completes the activity by him/herself with no assistance from a helper. 5-Set-up or Clean-up Assistance-helper sets up or cleans up; patient completes activity. [place] assists only prior to or following the activity. 4-Supervision or Touching Assistance-helper provides verbal cues and/or touching/steadying and/or contact guard assistance as patient completes activity. Assistance may be provided throughout the activity or intermittently. 3-Partial/Moderate Assistance-helper does LESS THAN HALF the effort. [place] lifts, holds or supports trunk or limbs, but provides less than half the effort. 2-Substantial/Maximal Assistance-helper does MORE THAN HALF the effort. [place] lifts or holds trunk or limbs and provides more than half the effort. 2-Pcjafwqsv-hkxcfe does ALL the effort. Patient does none of the effort to complete the activity. Or, the assistance of 2 or more helpers is required for the patient to complete the activity. If activity was not attempted, code reason: 7-Patient Refused. 9-Not Applicable-not attempted and the patient did not perform the activity before the current illness, exacerbation or injury. 10-Not Attempted due to Environmental Limitations-(lack of equipment, weather restraints, etc.). 88-Not Attempted due to Medical Conditions or Safety Concerns. Roll Left & Right (QC): 3 Sit to Lying (QC): 3 Lying to Sitting/Side of Bed(Q: 2 Sit to Stand (QC): 1 Chair/Spc-ws-Utwcs Xfer(QC): 1 Car Transfer (QC): 1 Weight Bearing Full Weight Bearing Full Weight Bearing Gait Training Does the Patient Walk?: Yes Distance: 14ft Walk 10 feet (QC): 3 Gait Assistive Device: FWW Wheelchair Training Does the Pt Use a Wheelchair?: Yes Wheel 50 ft with 2 turns (QC): 5 Wheel 150 ft (QC): 5 Type of Wheelchair: Manual Exercises Seated Therapy Exercises: LE Protocol Seated Reps: 15 Assessment Current Status: Fair Progress Pt was not able to safely perform the car transfer, even with total assistance. He struggled today to fully stand up for gait and transfers. He was able to stand up and ambulate 14ft, but required total assist to achieve the fully upright position. PT Short Term Goals Short Term Goals Time Frame: Dec 11, 2020 Roll Left & Right: 4 (met) Sit to lyin (met) Lying to sitting on side of be: 4 (met) Sit to stand: 3 Chair/qtk-qh-gypgi transfer: 3 Walk 10 feet: 3 Walk 50 feet with two turns: 3 PT Senior Care Goals [place] Hand Goals PT Checkerer Hand Goals Time Frame: Jan 01, 2021 Roll Left & Right (QC): 6 Sit to Lying (QC): 6 Lying-Sitting on Side/Bed(QC): 6 Sit to Stand (QC): 6 Chair/Mqx-na-Zoarg Xfer(QC): 6 Toilet Transfer (QC): 6 Car Transfer (QC): 6 Does the Patient Walk: No and Walking Goal IS indicated Walk 10 feet (QC): 6 Walk 50ft with 2 Turns (QC): 6 Walk 150 ft (QC): 6 Walking 10ft on Uneven Surface: 4 1 Step (curb) (QC): 4 4 Steps (QC): 4 12 Steps (QC): 4 Picking up an Object (QC): 5 Does the Pt use WC or Scooter?: No Wheel 50 feet with 2 turns (QC: 9 Wheel 150 feet: 9 PT Plan Treatment/Plan Treatment Plan: Continue Plan of Care Treatment Plan: Bed Mobility, Education, Functional Activity Erick, Functional Strength, Group Therapy, Gait, Safety, Therapeutic Exercise, Transfers Treatment Duration: Jan 01, 2021 Frequency: At least 5 of 7 days/Wk (IRF) Estimated Hrs Per Day: Other (see notation) Patient and/or Family Agrees t: Yes Time/GCodes Time In: 1030 Time Out: 1100 Total Billed Treatment Time: 30 Total Billed Treatment 1, gt 10, fa 20 PATEL RIVERA PT Dec 28, 2020 11:07
--- NOTE | 2020-12-28 12:48 | PM&R Progress Note ---
Subjective HPI/CC On Admission Date Seen by Provider: Dec 28, 2020 Time Seen by Provider: 13:00 Subjective/Events-last exam 12/28/20: Alevan on his buttock Coughed up some green sputum 3 times yesterday but lungs are clear BM large today Oxycodone for his left foot pain helped 2+ edema Sugar 167 He is very pessimistic about his overall progress which cannot be redirected 12/27/20: Transferring without the site to stand now Improved overall BM+ Alevan vs. butt paste on buttock He sits in chair all day long on computer 12/26/20: Insurance declined skilled for now Standing and actually progressing well 2L/min and doing well DC scheduled APAP TID 12/25/20: Awaiting shelter placement Actually working pretty well with therapy Denies any significant new pain Blurry vision still continues Didnt sleep real well last night 12/24/20: Eyes were better but the more he works on the computer the blurry issues return DC is on hold due to NH processes 12/23/20: Pt doing pretty well Buttock decubitus ulcer needs further treatment Discharge planned for tomorrow Hemaglobin 9.3 Midline will be discontinued at his request 12/22/20: Home O2 evaluation tomorrow for DC Wednesday DM education will be provided DC planned for [place] 12/21/20: Doing well Slept well BM today Edema improved on KRIS's Decubitus ulcers worsened due to sitting in chair all day long IS use increased 12/20/20: Now has daily complaints about minor things since he was notified last week he would need a [place] Nurse broke his grabber so will obtain replacement for him Butt paste placed on buttocks Stage 2 No other issues 12/19/20: No major issues Bowels are moving [facility] placement on Wednesday12/18/20: Discharge Wednesday to the shelter Family training did not go well Son was there but did not engage Insists on going home but that would not be a possibility Placing Alevin on buttock 12/17/20: Family training today at 10:00 Still has a stage 2 buttock decubitus ulcer Overall feels like he is doing much better Son at bedside when I rounded later today and he was evaluating his progress 12/16/20: Pt doing pretty well Bowels moved today Left midline is functioning Blood sugar 147 Stage 2 decubitus ulcer on the buttock Working really hard to stand 12/15/20: Overall doing well No issues BM+ No falls 12/14/20: Doing well BM+ Dyspnea still continues No pain 12/13/20: Patient more alert today and energized No pain reported Oxycodone helps the foot pain Participating with therapy 12/12/20: Pt doing a lot better Having a lot of pain, takes Oxycodone for his foot and leg pain Bowels are moving Sleeping better Pt very well could require a shelter since he lives alone and is just not progressing well 12/11/20: No major issues Pretty much has plateaued and not made much progress with ambulation Epistaxis of the left nostril Nasal sprays will be continued Re-check and check with insurance coverage but he very well may need to be in a shelter 12/10/20: Pt doing pretty well Slept on and off last night Remains on 4 liters of O2 Swelling in his feel is pretty minimal Did not use his BiPAP last night and that likely is the cause of not sleeping well 12/09/20: Pt slept pretty well Bowels are moving PLTs are 97, 000 Normal WBC down from 21 when he first arrived Denies any significant issues Trying to get strong enough to walk 12/08/20: Slept well last night Remeron and Melatonin has helped him a lot Sinus tachy last night BM 12/06/20 so laxatives given No other issues 12/07/20: Slept better Yonker provided for phlem HR 60 Appreciate Cardiology 4L/min O2 BM 12/06/20 12/06/20: HR 122 Cardiology consulted Sugar 54 so decreasing insulin BM++ No pain reported No sleeping well so added hypnotics of Melatonin and Remeron 12/05/20: Patient doing well Worn out from fatigue Sugars are ok No pain reported Tachycardic so consulting Dr Carranza Midline was accidently pulled out so need a new one placed Checked meds and labs Review of Systems Neurological: Weakness Objective Exam Vital Signs Vital Signs Date Time Temp Pulse Resp B/P (MAP) Pulse Ox O2 Delivery O2 Flow Rate FiO2 12/29/20 06:00 36.0 68 19 143/69 (93) 95 NIV CPAP 4.00 Capillary Refill : General Appearance: No Apparent Distress, WD/WN, Anxious, Chronically ill, Obese HEENT: PERRL/EOMI, Normal ENT Inspection, Pharynx Normal Neck: Full Range of Motion, Normal Inspection, Non Tender, Supple, Carotid Bruit Respiratory: Chest Non Tender, No Accessory Muscle Use, No Respiratory Distress, Crackles, Decreased Breath Sounds Cardiovascular: Regular Rate, Rhythm, No Gallop, No JVD, No Murmur, Normal Peripheral Pulses Gastrointestinal: Normal Bowel Sounds, No Organomegaly, No Pulsatile Mass, Non Tender, Soft Back: Normal Inspection, No CVA Tenderness, No Vertebral Tenderness Extremity: Normal Capillary Refill, Normal Inspection, Normal Range of Motion, Non Tender, No Calf Tenderness, Pedal Edema Neurologic/Psychiatric: Alert, Oriented x3, No Motor/Sensory Deficits, 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 FIM Transfers Therapy Code Descriptions/Definitions Functional [place] Measure: 0=Not Assessed/NA 4=Minimal Assistance 1=Total Assistance 5=Supervision or Setup 2=Maximal Assistance 6=Modified [place] 3=Moderate Assistance 7=Complete IndependenceSCALE: Activities may be completed with or without assistive devices. 4-Xntaosthpz-wlxqqkb completes the activity by him/herself with no assistance from a helper. 5-Set-up or Clean-up Assistance-helper sets up or cleans up; patient completes activity. [place] assists only prior to or following the activity. 4-Supervision or Touching Assistance-helper provides verbal cues and/or touching/steadying and/or contact guard assistance as patient completes activity. Assistance may be provided throughout the activity or intermittently. 3-Partial/Moderate Assistance-helper does LESS THAN HALF the effort. [place] lifts, holds or supports trunk or limbs, but provides less than half the effort. 2-Substantial/Maximal Assistance-helper does MORE THAN HALF the effort. [place] lifts or holds trunk or limbs and provides more than half the effort. 1-Gmadaiuys-kzjkeo does ALL the effort. Patient does none of the effort to complete the activity. Or, the assistance of 2 or more helpers is required for the patient to complete the activity. If activity was not attempted, code reason: 7-Patient Refused. 9-Not Applicable-not attempted and the patient did not perform the activity bef ore the current illness, exacerbation or injury. 10-Not Attempted due to Environmental Limitations-(lack of equipment, weather r estraints, etc.). 88-Not Attempted due to Medical Conditions or Safety Concerns. Roll Left to Right (QC): 3 Sit to Lying (QC): 3 Sit to Stand (QC): 1 Chair/Bbo-bb-Byfmx Xfer(QC): 1 Car Transfer (QC): 1 Gait Training Does the Patient Walk?: Yes Distance: 14ft Walk 10 feet (QC): 3 Walk 50 ft with 2 Turns(QC): 88 Walk 150 ft (QC): 88 Walking 10ft/uneven surface-QC: 88 Gait Persons Needed: 1 Gait Assistive Device: FWW Wheelchair Training Does the Pt Use a Wheelchair?: Yes Wheel 50 ft with 2 turns (QC): 5 Wheel 150 ft (QC): 5 Type of Wheelchair: Manual Stair Training 1 Step (curb) (QC): 88 4 Steps (QC): 88 12 Steps (QC): 88 Balance Picking up an Object (QC): 88 ADL-Treatment Eating (QC): 6 Oral Hygiene (QC): 6 Bathing Location: L Arm, R Arm, L Upper Leg, R Upper Leg, Chest, Abdomen, Perineal Area Shower/Bathe Self (QC): 7 Upper Body Dressing (QC): 5 (s/u) Lower Body Dressing (QC): 1 (Due to need of Ax2 (PT assist sit to stand, OT addresses pant hike). 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 Obesity DM Neuropathy Anemia O2 dependence Plan: IRF protocol Monitor O2 O2 supplement 12/05/20: O2 maintained IRF protocol Cardiology consultation appreciated Midline replacement 12/06/20: Cardiology consult appreciated Decrease insulin Midline Monitor closely 12/07/20: Monitor closely O2 wean Increase acitivity Maintain Remeron and Melatonin 12/08/20: Monitor closely Check labs in am Monitor tachycardia Remeron and Melatonin 12/09/20: Labs normal Improved strength Weaning O2 Monitor insomnia Increase insulin 12/10/20: Monitor O2 Increase strength Severe myopathy of legs 12/11/20: Difficult to progress Continue therapy May need NHP 12/12/20: Pain control with Oxycodone Monitor bowels Monitor O2 12/13/20: Monitor pain Wean O2 CPAP mask seems to be working better 12/14/20: Improved status Stood up today with help O2 12/15/20: Wean O2 Monitor ambulation CPAP at night 12/16/20: Monitor progress Decubitus ulcer management Monitor BP 12/17/20: Family education/training today Monitor O2 CPAP with O2 12/18/20: Monitor O2 NH Wednesday Continue to work on stamina 12/19/20: Monitor O2 CPAP 12/20/20: Decubitus ulcer management Monitor O2 Replace grabber 12/21/20: Monitor O2 KRIS CPAP 12/22/20: DC Wednesday to [place] Home O2 evaluation 12/23/20: DC midline DC tomorrow to [place] Needs eye exam soon for blurry vision 12/24/20: DC on hold Monitor O2 12/25/20: Continue therapy Making significant progress 12/26/20: Monitor progress Standing now May be able to DC home? 12/27/20: Much improved status Improved standing No pain reported 12/28/20: Walked a bit but he gets discouraged so quickly Pain controlled in his foot Monitor cough (1) COVID-19 (2) RICHY on CPAP (3) Obesity (4) Diabetes (5) Hypertension (6) Edema (7) Neuropathy (8) Anemia (9) Advanced age DEANNA BOO DO Dec 28, 2020 12:47
[2020-12-28 16:22] VITALS: BP 129/73
[2020-12-28] MEDS: MIRTAZAPINE 15 MG (REMERON) TAB PO SCH (20:31)
[2020-12-28] MEDS: MELATONIN 3 MG TABLET PO SCH (20:32)
[2020-12-28] MEDS: ZINC OXIDE 16% OINT (BUTT PASTE) 57 GM TUBE TOP PRN (20:32)
[2020-12-29] MEDS: inSUlin ASPART (NovoLOG) 1 UNIT/0.01 ML (CHARGE PER UNIT) SC SCH ×5 (05:42→20:29)
[2020-12-29 06:00] VITALS: BP 143/69
--- NOTE | 2020-12-29 07:07 | PM&R Progress Note ---
Subjective HPI/CC On Admission Date Seen by Provider: Dec 29, 2020 Time Seen by Provider: 13:00 Subjective/Events-last exam 12/29/20: Patient frustrated BM yesterday Sputum produced and sent down to lab? Sugar 196 No pain meds required today 12/28/20: Alevan on his buttock Coughed up some green sputum 3 times yesterday but lungs are clear BM large today Oxycodone for his left foot pain helped 2+ edema Sugar 167 He is very pessimistic about his overall progress which cannot be redirected 12/27/20: Transferring without the site to stand now Improved overall BM+ Alevan vs. butt paste on buttock He sits in chair all day long on computer 12/26/20: Insurance declined skilled for now Standing and actually progressing well 2L/min and doing well DC scheduled APAP TID 12/25/20: Awaiting fci placement Actually working pretty well with therapy Denies any significant new pain Blurry vision still continues Didnt sleep real well last night 12/24/20: Eyes were better but the more he works on the computer the blurry issues return DC is on hold due to [place] processes 12/23/20: Pt doing pretty well Buttock decubitus ulcer needs further treatment Discharge planned for tomorrow Hemaglobin 9.3 Midline will be discontinued at his request 12/22/20: Home O2 evaluation tomorrow for DC Wednesday DM education will be provided DC planned for [place] 12/21/20: Doing well Slept well BM today Edema improved on KRIS's Decubitus ulcers worsened due to sitting in chair all day long IS use increased 12/20/20: Now has daily complaints about minor things since he was notified last week he would need a CO Nurse broke his grabber so will obtain replacement for him Butt paste placed on buttocks Stage 2 No other issues 12/19/20: No major issues Bowels are moving [facility] placement on Wednesday12/18/20: Discharge Wednesday to the fci Family training did not go well Son was there but did not engage Insists on going home but that would not be a possibility Placing Alevin on buttock 12/17/20: Family training today at 10:00 Still has a stage 2 buttock decubitus ulcer Overall feels like he is doing much better Son at bedside when I rounded later today and he was evaluating his progress 12/16/20: Pt doing pretty well Bowels moved today Left midline is functioning Blood sugar 147 Stage 2 decubitus ulcer on the buttock Working really hard to stand 12/15/20: Overall doing well No issues BM+ No falls 12/14/20: Doing well BM+ Dyspnea still continues No pain 12/13/20: Patient more alert today and energized No pain reported Oxycodone helps the foot pain Participating with therapy 12/12/20: Pt doing a lot better Having a lot of pain, takes Oxycodone for his foot and leg pain Bowels are moving Sleeping better Pt very well could require a fci since he lives alone and is just not progressing well 12/11/20: No major issues Pretty much has plateaued and not made much progress with ambulation Epistaxis of the left nostril Nasal sprays will be continued Re-check and check with insurance coverage but he very well may need to be in a fci 12/10/20: Pt doing pretty well Slept on and off last night Remains on 4 liters of O2 Swelling in his feel is pretty minimal Did not use his BiPAP last night and that likely is the cause of not sleeping well 12/09/20: Pt slept pretty well Bowels are moving PLTs are 97, 000 Normal WBC down from 21 when he first arrived Denies any significant issues Trying to get strong enough to walk 12/08/20: Slept well last night Remeron and Melatonin has helped him a lot Sinus tachy last night BM 12/06/20 so laxatives given No other issues 12/07/20: Slept better Yonker provided for phlem HR 60 Appreciate Cardiology 4L/min O2 BM 12/06/20 12/06/20: HR 122 Cardiology consulted Sugar 54 so decreasing insulin BM++ No pain reported No sleeping well so added hypnotics of Melatonin and Remeron 12/05/20: Patient doing well Worn out from fatigue Sugars are ok No pain reported Tachycardic so consulting Dr Carranza Midline was accidently pulled out so need a new one placed Checked meds and labs Review of Systems General: Fatigue, Malaise Neurological: Weakness, Incoordination Objective Exam Vital Signs Vital Signs Date Time Temp Pulse Resp B/P (MAP) Pulse Ox O2 Delivery O2 Flow Rate FiO2 12/29/20 17:43 36.2 90 18 116/65 (82) 96 Nasal Cannula 4.00 Capillary Refill : General Appearance: No Apparent Distress, WD/WN, Anxious, Chronically ill, Obese HEENT: PERRL/EOMI, Normal ENT Inspection, Pharynx Normal Neck: Full Range of Motion, Normal Inspection, Non Tender, Supple, Carotid Bruit Respiratory: Chest Non Tender, Lungs Clear, No Accessory Muscle Use, No Respiratory Distress, Decreased Breath Sounds Cardiovascular: Regular Rate, Rhythm, No Gallop, No JVD, No Murmur, Normal Peripheral Pulses Gastrointestinal: Normal Bowel Sounds, No Organomegaly, No Pulsatile Mass, Non Tender, Soft Back: Normal Inspection, No CVA Tenderness, No Vertebral Tenderness Extremity: Normal Capillary Refill, Normal Inspection, Normal Range of Motion, Non Tender, No Calf Tenderness, Pedal Edema Neurologic/Psychiatric: Alert, Oriented x3, No Motor/Sensory Deficits, pediatric physical therapist II- XII Norm as Tested, Depressed Affect, Motor Weakness Skin: Normal Color, Warm/Dry Lymphatic: No Adenopathy Results/Procedures Lab Patient resulted labs reviewed. FIM Transfers Therapy Code Descriptions/Definitions Functional [place] Measure: 0=Not Assessed/NA 4=Minimal Assistance 1=Total Assistance 5=Supervision or Setup 2=Maximal Assistance 6=Modified [place] 3=Moderate Assistance 7=Complete IndependenceSCALE: Activities may be completed with or without assistive devices. 9-Ibkfzwumpw-gmrdood completes the activity by him/herself with no assistance from a helper. 5-Set-up or Clean-up Assistance-helper sets up or cleans up; patient completes activity. [place] assists only prior to or following the activity. 4-Supervision or Touching Assistance-helper provides verbal cues and/or touching/steadying and/or contact guard assistance as patient completes activity. Assistance may be provided throughout the activity or intermittently. 3-Partial/Moderate Assistance-helper does LESS THAN HALF the effort. [place] lifts, holds or supports trunk or limbs, but provides less than half the effort. 2-Substantial/Maximal Assistance-helper does MORE THAN HALF the effort. [place] lifts or holds trunk or limbs and provides more than half the effort. 5-Qysjaofjf-xkdzgv does ALL the effort. Patient does none of the effort to complete the activity. Or, the assistance of 2 or more helpers is required for the patient to complete the activity. If activity was not attempted, code reason: 7-Patient Refused. 9-Not Applicable-not attempted and the patient did not perform the activity before the current illness, exacerbation or injury. 10-Not Attempted due to Environmental Limitations-(lack of equipment, weather restraints, etc.). 88-Not Attempted due to Medical Conditions or Safety Concerns. Roll Left to Right (QC): 3 Sit to Lying (QC): 3 Sit to Stand (QC): 1 Chair/Hao-jz-Vlyqt Xfer(QC): 1 Car Transfer (QC): 1 Gait Training Does the Patient Walk?: Yes Distance: 14ft Walk 10 feet (QC): 3 Walk 50 ft with 2 Turns(QC): 88 Walk 150 ft (QC): 88 Walking 10ft/uneven surface-QC: 88 Gait Persons Needed: 1 Gait Assistive Device: FWW Wheelchair Training Does the Pt Use a Wheelchair?: Yes Wheel 50 ft with 2 turns (QC): 5 Wheel 150 ft (QC): 5 Type of Wheelchair: Manual Stair Training 1 Step (curb) (QC): 88 4 Steps (QC): 88 12 Steps (QC): 88 Balance Picking up an Object (QC): 88 ADL-Treatment Eating (QC): 6 Oral Hygiene (QC): 6 Bathing Location: L Arm, R Arm, L Upper Leg, R Upper Leg, Chest, Abdomen, Perineal Area Shower/Bathe Self (QC): 7 Upper Body Dressing (QC): 5 (s/u) Lower Body Dressing (QC): 1 (Due to need of Ax2 (PT assist sit to stand, OT addresses pant hike). 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 Obesity DM Neuropathy Anemia O2 dependence Plan: IRF protocol Monitor O2 O2 supplement 12/05/20: O2 maintained IRF protocol Cardiology consultation appreciated Midline replacement 12/06/20: Cardiology consult appreciated Decrease insulin Midline Monitor closely 12/07/20: Monitor closely O2 wean Increase acitivity Maintain Remeron and Melatonin 12/08/20: Monitor closely Check labs in am Monitor tachycardia Remeron and Melatonin 12/09/20: Labs normal Improved strength Weaning O2 Monitor insomnia Increase insulin 12/10/20: Monitor O2 Increase strength Severe myopathy of legs 12/11/20: Difficult to progress Continue therapy May need NHP 12/12/20: Pain control with Oxycodone Monitor bowels Monitor O2 12/13/20: Monitor pain Wean O2 CPAP mask seems to be working better 12/14/20: Improved status Stood up today with help O2 12/15/20: Wean O2 Monitor ambulation CPAP at night 12/16/20: Monitor progress Decubitus ulcer management Monitor BP 12/17/20: Family education/training today Monitor O2 CPAP with O2 12/18/20: Monitor O2 NH Wednesday Continue to work on stamina 12/19/20: Monitor O2 CPAP 12/20/20: Decubitus ulcer management Monitor O2 Replace grabber 12/21/20: Monitor O2 KRIS CPAP 12/22/20: DC Wednesday to [place] Home O2 evaluation 12/23/20: DC midline DC tomorrow to [place] Needs eye exam soon for blurry vision 12/24/20: DC on hold Monitor O2 12/25/20: Continue therapy Making significant progress 12/26/20: Monitor progress Standing now May be able to DC home? 12/27/20: Much improved status Improved standing No pain reported 12/28/20: Walked a bit but he gets discouraged so quickly Pain controlled in his foot Monitor cough 12/29/20: Started scheduled insulin AC Adjusted Levemir to 10 units HS since sugars are low in am and maintained Levemir 20 units at bfast Check labs in am (1) COVID-19 (2) RICHY on CPAP (3) Obesity (4) Diabetes (5) Hypertension (6) Edema (7) Neuropathy (8) Anemia (9) Advanced age DEANNA BOO DO Dec 29, 2020 07:07
[2020-12-29] MEDS: ADVAIR HFA 115/21 MCG INHALER 8 GM IH SCH ×2 (07:18→20:28)
[2020-12-29] MEDS: UMECLIDINIUM BROMIDE (INCRUSE ELLIPTA) 7'S IH SCH (07:19)
[2020-12-29] MEDS: FINASTERIDE (PROSCAR) 5 MG TAB PO SCH (09:56)
[2020-12-29] MEDS: APIXABAN 5 MG (ELIQUIS) TABLET PO SCH ×2 (09:56→20:30)
[2020-12-29] MEDS: TAMSULOSIN 0.4 MG (FLOMAX) CAP PO SCH (09:56)
[2020-12-29] MEDS: VITAMIN D3 25 MCG (1,000 UNITS) TABLET PO SCH (09:56)
[2020-12-29] MEDS: PANTOPRAZOLE 40 MG (PROTONIX) TAB PO SCH (09:56)
[2020-12-29] MEDS: predniSONE 10 MG TAB PO SCH (09:56)
[2020-12-29] MEDS: SENNA W/DOCUSATE (SENOKOT S) TABLET PO SCH ×2 (09:56→20:32)
[2020-12-29] MEDS: DOCUSATE SODIUM 100 MG (COLACE) CAP PO SCH ×2 (09:56→20:32)
[2020-12-29] MEDS: meTOprolol TARTRATE 50 MG (LOPRESSOR) TAB PO SCH ×2 (09:56→20:32)
[2020-12-29] MEDS: GABAPENTIN 100 MG (NEURONTIN) CAP PO SCH ×3 (09:56→20:32)
[2020-12-29] MEDS: ASCORBIC ACID (VIT C) 500 MG TABLET PO SCH ×2 (09:57→17:05)
[2020-12-29] MEDS: LOSARTAN 25 MG (COZAAR) TAB PO SCH (09:57)
[2020-12-29] MEDS: ASPIRIN 81 MG CHEW (CHILDREN'S ASA) PO SCH (09:57)
[2020-12-29] MEDS: FLUTICASONE NASAL SPRAY (FLONASE) 16 GM BTL NS SCH (10:33)
[2020-12-29] MEDS: SALINE NASAL SPRAY (OCEAN) 45 ML BTL NS SCH ×3 (10:34→20:34)
[2020-12-29] MEDS: SALIVA STIMULANT MOUTH SPRAY (BIOTENE) 1.5 OZ MM SCH ×4 (10:35→20:33)
[2020-12-29] MEDS: polyethylene glycoL POWDER 17 GM (MIRALAX) PACK PO SCH ×2 (10:35→20:30)
[2020-12-29 17:43] VITALS: BP 116/65
[2020-12-29] MEDS: MELATONIN 3 MG TABLET PO SCH (20:32)
[2020-12-29] MEDS: MIRTAZAPINE 15 MG (REMERON) TAB PO SCH (20:32)
[2020-12-29] MEDS: ACETAMINOPHEN 325 MG TABLET PO PRN (20:32)
[2020-12-29 20:50] VITALS: BP 118/57
[2020-12-30] MEDS: inSUlin ASPART (NovoLOG) 1 UNIT/0.01 ML (CHARGE PER UNIT) SC SCH ×7 (05:28→20:39)
--- NOTE | 2020-12-30 05:47 | PM&R Progress Note ---
Subjective HPI/CC On Admission Date Seen by Provider: Dec 30, 2020 Time Seen by Provider: 10:30 Subjective/Events-last exam 12/30/20: Bowels moved yesterday Doing pretty well Right great toe pain so consulted Dr. Rob Uric acid will be added and X-ray of the right foot 12/29/20: Patient frustrated BM yesterday Sputum produced and sent down to lab? Sugar 196 No pain meds required today 12/28/20: Alevan on his buttock Coughed up some green sputum 3 times yesterday but lungs are clear BM large today Oxycodone for his left foot pain helped 2+ edema Sugar 167 He is very pessimistic about his overall progress which cannot be redirected 12/27/20: Transferring without the site to stand now Improved overall BM+ Alevan vs. butt paste on buttock He sits in chair all day long on computer 12/26/20: Insurance declined skilled for now Standing and actually progressing well 2L/min and doing well DC scheduled APAP TID 12/25/20: Awaiting snf placement Actually working pretty well with therapy Denies any significant new pain Blurry vision still continues Didnt sleep real well last night 12/24/20: Eyes were better but the more he works on the computer the blurry issues return DC is on hold due to NH processes 12/23/20: Pt doing pretty well Buttock decubitus ulcer needs further treatment Discharge planned for tomorrow Hemaglobin 9.3 Midline will be discontinued at his request 12/22/20: Home O2 evaluation tomorrow for DC Wednesday DM education will be provided DC planned for [place] 12/21/20: Doing well Slept well BM today Edema improved on KRSI's Decubitus ulcers worsened due to sitting in chair all day long IS use increased 12/20/20: Now has daily complaints about minor things since he was notified last week he would need a [place] Nurse broke his grabber so will obtain replacement for him Butt paste placed on buttocks Stage 2 No other issues 12/19/20: No major issues Bowels are moving [facility] placement on Wednesday12/18/20: Discharge Wednesday to the snf Family training did not go well Son was there but did not engage Insists on going home but that would not be a possibility Placing Alevin on buttock 12/17/20: Family training today at 10:00 Still has a stage 2 buttock decubitus ulcer Overall feels like he is doing much better Son at bedside when I rounded later today and he was evaluating his progress 12/16/20: Pt doing pretty well Bowels moved today Left midline is functioning Blood sugar 147 Stage 2 decubitus ulcer on the buttock Working really hard to stand 12/15/20: Overall doing well No issues BM+ No falls 12/14/20: Doing well BM+ Dyspnea still continues No pain 12/13/20: Patient more alert today and energized No pain reported Oxycodone helps the foot pain Participating with therapy 12/12/20: Pt doing a lot better Having a lot of pain, takes Oxycodone for his foot and leg pain Bowels are moving Sleeping better Pt very well could require a snf since he lives alone and is just not progressing well 12/11/20: No major issues Pretty much has plateaued and not made much progress with ambulation Epistaxis of the left nostril Nasal sprays will be continued Re-check and check with insurance coverage but he very well may need to be in a snf 12/10/20: Pt doing pretty well Slept on and off last night Remains on 4 liters of O2 Swelling in his feel is pretty minimal Did not use his BiPAP last night and that likely is the cause of not sleeping well 12/09/20: Pt slept pretty well Bowels are moving PLTs are 97, 000 Normal WBC down from 21 when he first arrived Denies any significant issues Trying to get strong enough to walk 12/08/20: Slept well last night Remeron and Melatonin has helped him a lot Sinus tachy last night BM 12/06/20 so laxatives given No other issues 12/07/20: Slept better Yonker provided for phlem HR 60 Appreciate Cardiology 4L/min O2 BM 12/06/20 12/06/20: HR 122 Cardiology consulted Sugar 54 so decreasing insulin BM++ No pain reported No sleeping well so added hypnotics of Melatonin and Remeron 12/05/20: Patient doing well Worn out from fatigue Sugars are ok No pain reported Tachycardic so consulting Dr Carranza Midline was accidently pulled out so need a new one placed Checked meds and labs Review of Systems General: Fatigue, Malaise Pulmonary: Dyspnea Musculoskeletal: foot pain Neurological: Weakness, Incoordination Objective Exam Vital Signs Vital Signs Date Time Temp Pulse Resp B/P (MAP) Pulse Ox O2 Delivery O2 Flow Rate FiO2 12/30/20 21:06 92 Nasal Cannula 3.00 12/30/20 16:18 36.2 89 16 113/60 (77) Capillary Refill : General Appearance: No Apparent Distress, WD/WN, Anxious, Chronically ill, Obese HEENT: PERRL/EOMI, Normal ENT Inspection, Pharynx Normal Neck: Full Range of Motion, Normal Inspection, Non Tender, Supple, Carotid Bruit Respiratory: Chest Non Tender, Lungs Clear, No Accessory Muscle Use, No Respiratory Distress, Decreased Breath Sounds Cardiovascular: Regular Rate, Rhythm, No Gallop, No JVD, No Murmur, Normal Peripheral Pulses Gastrointestinal: Normal Bowel Sounds, No Organomegaly, No Pulsatile Mass, Non Tender, Soft Back: Normal Inspection, No CVA Tenderness, No Vertebral Tenderness Extremity: Normal Capillary Refill, Normal Inspection, Normal Range of Motion, Non Tender, No Calf Tenderness, Pedal Edema Neurologic/Psychiatric: Alert, Oriented x3, No Motor/Sensory Deficits, trade marker II- XII Norm as Tested, Depressed Affect, Motor Weakness Skin: Normal Color, Warm/Dry Lymphatic: No Adenopathy Results/Procedures Lab Patient resulted labs reviewed. FIM Transfers Therapy Code Descriptions/Definitions Functional [place] Measure: 0=Not Assessed/NA 4=Minimal Assistance 1=Total Assistance 5=Supervision or Setup 2=Maximal Assistance 6=Modified [place] 3=Moderate Assistance 7=Complete IndependenceSCALE: Activities may be completed with or without assistive devices. 2-Webikdyccg-mprzbuq completes the activity by him/herself with no assistance from a helper. 5-Set-up or Clean-up Assistance-helper sets up or cleans up; patient completes activity. [place] assists only prior to or following the activity. 4-Supervision or Touching Assistance-helper provides verbal cues and/or touching/steadying and/or contact guard assistance as patient completes activity. Assistance may be provided throughout the activity or intermittently. 3-Partial/Moderate Assistance-helper does LESS THAN HALF the effort. [place] lifts, holds or supports trunk or limbs, but provides less than half the effort. 2-Substantial/Maximal Assistance-helper does MORE THAN HALF the effort. [place] lifts or holds trunk or limbs and provides more than half the effort. 7-Gmeykllvh-lirirz does ALL the effort. Patient does none of the effort to complete the activity. Or, the assistance of 2 or more helpers is required for the patient to complete the activity. If activity was not attempted, code reason: 7-Patient Refused. 9-Not Applicable-not attempted and the patient did not perform the activity before the current illness, exacerbation or injury. 10-Not Attempted due to Environmental Limitations-(lack of equipment, weather restraints, etc.). 88-Not Attempted due to Medical Conditions or Safety Concerns. Roll Left to Right (QC): 3 Sit to Lying (QC): 3 Sit to Stand (QC): 1 Chair/Ogg-eb-Ouzpg Xfer(QC): 1 Car Transfer (QC): 1 Gait Training Does the Patient Walk?: Yes Distance: 14ft Walk 10 feet (QC): 3 Walk 50 ft with 2 Turns(QC): 88 Walk 150 ft (QC): 88 Walking 10ft/uneven surface-QC: 88 Gait Persons Needed: 1 Gait Assistive Device: FWW Wheelchair Training Does the Pt Use a Wheelchair?: Yes Wheel 50 ft with 2 turns (QC): 5 Wheel 150 ft (QC): 5 Type of Wheelchair: Manual Stair Training 1 Step (curb) (QC): 88 4 Steps (QC): 88 12 Steps (QC): 88 Balance Picking up an Object (QC): 88 ADL-Treatment Eating (QC): 6 Oral Hygiene (QC): 6 Bathing Location: L Arm, R Arm, L Upper Leg, R Upper Leg, Chest, Abdomen, Perineal Area Shower/Bathe Self (QC): 7 Upper Body Dressing (QC): 5 (s/u) Lower Body Dressing (QC): 1 (Due to need of Ax2 (PT assist sit to stand, OT ad dresses pant hike). 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 Obesity DM Neuropathy Anemia O2 dependence Right great toe pain consulted Dr Rob 12/30/20 Plan: IRF protocol Monitor O2 O2 supplement 12/05/20: O2 maintained IRF protocol Cardiology consultation appreciated Midline replacement 12/06/20: Cardiology consult appreciated Decrease insulin Midline Monitor closely 12/07/20: Monitor closely O2 wean Increase acitivity Maintain Remeron and Melatonin 12/08/20: Monitor closely Check labs in am Monitor tachycardia Remeron and Melatonin 12/09/20: Labs normal Improved strength Weaning O2 Monitor insomnia Increase insulin 12/10/20: Monitor O2 Increase strength Severe myopathy of legs 12/11/20: Difficult to progress Continue therapy May need NHP 12/12/20: Pain control with Oxycodone Monitor bowels Monitor O2 12/13/20: Monitor pain Wean O2 CPAP mask seems to be working better 12/14/20: Improved status Stood up today with help O2 12/15/20: Wean O2 Monitor ambulation CPAP at night 12/16/20: Monitor progress Decubitus ulcer management Monitor BP 12/17/20: Family education/training today Monitor O2 CPAP with O2 12/18/20: Monitor O2 NH Wednesday Continue to work on stamina 12/19/20: Monitor O2 CPAP 12/20/20: Decubitus ulcer management Monitor O2 Replace grabber 12/21/20: Monitor O2 KRIS CPAP 12/22/20: DC Wednesday to [place] Home O2 evaluation 12/23/20: DC midline DC tomorrow to [place] Needs eye exam soon for blurry vision 12/24/20: DC on hold Monitor O2 12/25/20: Continue therapy Making significant progress 12/26/20: Monitor progress Standing now May be able to DC home? 12/27/20: Much improved status Improved standing No pain reported 12/28/20: Walked a bit but he gets discouraged so quickly Pain controlled in his foot Monitor cough 12/29/20: Started scheduled insulin AC Adjusted Levemir to 10 units HS since sugars are low in am and maintained Levemir 20 units at bfast Check labs in am 12/30/20: Right great toe pain eval by Dr Rob Check uric acid and xray Monitor sugar (1) COVID-19 (2) RICHY on CPAP (3) Obesity (4) Diabetes (5) Hypertension (6) Edema (7) Neuropathy (8) Anemia (9) Advanced age DEANNA BOO DO Dec 30, 2020 05:47
[2020-12-30 06:00] VITALS: BP 123/66
[2020-12-30 06:05] LABS: BASOPHILS % (AUTO) 0 % (0-10); EOSINOPHILS % (AUTO) 0 % (0-10); HEMATOCRIT 28 % (40-54); HEMOGLOBIN 8.4 g/dL (13.3-17.7); LYMPHOCYTES # (AUTO) 1.2 10^3/uL (1.0-4.0); LYMPHOCYTES % (AUTO) 13 % (12-44); MEAN CORPUSCULAR HEMOGLOBIN 29 pg (25-34); MEAN CORPUSCULAR HGB CONC 31 g/dL (32-36); MEAN CORPUSCULAR VOLUME 94 fL (80-99); MEAN PLATELET VOLUME 9.5 fL (9.0-12.2); MONOCYTES # (AUTO) 1.3 10^3/uL (0.0-1.0); MONOCYTES % (AUTO) 14 % (0-12); NEUTROPHILS # (AUTO) 6.1 10^3/uL (1.8-7.8); NEUTROPHILS % (AUTO) 65 % (42-75); PLATELET COUNT 189 10^3/uL (130-400); WHITE BLOOD COUNT 9.3 10^3/uL (4.3-11.0)
[2020-12-30 06:18] LABS: ALBUMIN 3.2 GM/DL (3.2-4.5); CHLORIDE 102 MMOL/L (98-107); POTASSIUM 4.1 MMOL/L (3.6-5.0); SODIUM 140 MMOL/L (135-145)
[2020-12-30 06:19] LABS: CALCIUM 9.2 MG/DL (8.5-10.1)
[2020-12-30 06:20] LABS: GLUCOSE 151 MG/DL (70-105); TOTAL PROTEIN 5.9 GM/DL (6.4-8.2)
[2020-12-30 06:22] LABS: BILIRUBIN,TOTAL 0.5 MG/DL (0.1-1.0); CARBON DIOXIDE 26 MMOL/L (21-32)
[2020-12-30 06:24] LABS: ALKALINE PHOSPHATASE 52 U/L (40-136); CREATININE SERUM 1.04 MG/DL (0.60-1.30); GFR ESTIMATED > 60
[2020-12-30 06:25] LABS: BUN/CREATININE RATIO 19
[2020-12-30 06:27] LABS: ALANINE AMINOTRANSFERASE 24 U/L (0-55)
[2020-12-30] MEDS: VITAMIN D3 25 MCG (1,000 UNITS) TABLET PO SCH (08:51)
[2020-12-30] MEDS: TAMSULOSIN 0.4 MG (FLOMAX) CAP PO SCH (08:51)
[2020-12-30] MEDS: ASPIRIN 81 MG CHEW (CHILDREN'S ASA) PO SCH (08:51)
[2020-12-30] MEDS: DOCUSATE SODIUM 100 MG (COLACE) CAP PO SCH ×2 (08:51→20:40)
[2020-12-30] MEDS: FINASTERIDE (PROSCAR) 5 MG TAB PO SCH (08:51)
[2020-12-30] MEDS: SENNA W/DOCUSATE (SENOKOT S) TABLET PO SCH ×2 (08:51→20:40)
[2020-12-30] MEDS: APIXABAN 5 MG (ELIQUIS) TABLET PO SCH ×2 (08:52→20:39)
[2020-12-30] MEDS: PANTOPRAZOLE 40 MG (PROTONIX) TAB PO SCH (08:52)
[2020-12-30] MEDS: GABAPENTIN 100 MG (NEURONTIN) CAP PO SCH ×3 (08:52→20:38)
[2020-12-30] MEDS: ASCORBIC ACID (VIT C) 500 MG TABLET PO SCH ×2 (08:52→18:01)
[2020-12-30] MEDS: predniSONE 10 MG TAB PO SCH (08:52)
[2020-12-30] MEDS: LOSARTAN 25 MG (COZAAR) TAB PO SCH (08:52)
[2020-12-30] MEDS: meTOprolol TARTRATE 50 MG (LOPRESSOR) TAB PO SCH ×2 (08:52→20:38)
[2020-12-30] MEDS: polyethylene glycoL POWDER 17 GM (MIRALAX) PACK PO SCH ×2 (08:53→20:05)
[2020-12-30] MEDS: SALIVA STIMULANT MOUTH SPRAY (BIOTENE) 1.5 OZ MM SCH ×4 (08:53→20:40)
[2020-12-30] MEDS: SALINE NASAL SPRAY (OCEAN) 45 ML BTL NS SCH ×3 (09:03→20:40)
[2020-12-30] MEDS: FLUTICASONE NASAL SPRAY (FLONASE) 16 GM BTL NS SCH (09:03)
[2020-12-30] MEDS: ACETAMINOPHEN 325 MG TABLET PO PRN (09:09)
--- NOTE | 2020-12-30 10:48 | Physical Therapy Daily Note ---
PT Daily Note-Current Subjective Patient in recliner pre tx, agrees to PT, has some right foot pain, patient's right great toe in swollen and red, nurse comes in to look at it, will be co- treating with OT due to poor patient mobility, strength, endurance, coordinate UE and LE during activity, safety and reduce risk of falls. Appearance Patient in WC post tx with nurse call, phone, tray, all needs met. Mental Status Patient Orientation: Person, Place, Situation, Normal For Age Attachments: Oxygen Transfers SCALE: Activities may be completed with or without assistive devices. 8-Rzjeipgnrv-bvvupcr completes the activity by him/herself with no assistance from a helper. 5-Set-up or Clean-up Assistance-helper sets up or cleans up; patient completes activity. [place] assists only prior to or following the activity. 4-Supervision or Touching Assistance-helper provides verbal cues and/or touching/steadying and/or contact guard assistance as patient completes activity. Assistance may be provided throughout the activity or intermittently. 3-Partial/Moderate Assistance-helper does LESS THAN HALF the effort. [place] lif ts, holds or supports trunk or limbs, but provides less than half the effort. 2-Substantial/Maximal Assistance-helper does MORE THAN HALF the effort. [place] lifts or holds trunk or limbs and provides more than half the effort. 4-Egaxjesxg-icyrvq does ALL the effort. Patient does none of the effort to complete the activity. Or, the assistance of 2 or more helpers is required for the patient to complete the activity. If activity was not attempted, code reason: 7-Patient Refused. 9-Not Applicable-not attempted and the patient did not perform the activity before the current illness, exacerbation or injury. 10-Not Attempted due to Environmental Limitations-(lack of equipment, weather restraints, etc.). 88-Not Attempted due to Medical Conditions or Safety Concerns. Roll Left & Right (QC): 3 Sit to Lying (QC): 3 Lying to Sitting/Side of Bed(Q: 3 Sit to Stand (QC): 2 Chair/Lsz-cu-Jvrhl Xfer(QC): 3 Patient needs max assist to stand from WC when using a rolling walker but min assist to stand from WC in the parallel bars. Patient stood in parallel bars x3 for 1 min, 1 min, 2 min. Weight Bearing Full Weight Bearing Full Weight Bearing Gait Training Distance: 20'x2 Walk 10 feet (QC): 4 Walking 10ft/uneven surface-QC: 3 Gait Persons Needed: 1 Gait Assistive Device: FWW Patient very unsteady ambulating on uneven surface, min assist to maintain balance, needed WC immediately at the end. Wheelchair Training Does the Pt Use a Wheelchair?: Yes Wheel 50 ft with 2 turns (QC): 4 Stair Training #of Steps: 1 1 Step (curb) (QC): 2 Stairs: Pattern: Step to Patient attempted to go up one step using a rolling walker but could not come up all the way and had to sit into chair. Exercises LE stretching bilaterally in all planes, patient states he feels like his legs are tight Treatments PT performed bed mobility and transfers, ambulation, WC mobility, LE stretching, OT performed UE positioning and safety during activity, UE strengthening Assessment Current Status: Poor Progress poorer endurance, patient would only ambulate twice PT Short Term Goals Short Term Goals Time Frame: Dec 11, 2020 Roll Left & Right: 4 (met) Sit to lyin (met) Lying to sitting on side of be: 4 (met) Sit to stand: 3 Chair/uth-gz-emhor transfer: 3 Walk 10 feet: 3 Walk 50 feet with two turns: 3 PT Snf Goals Snf Goals PT [employer] Goals Time Frame: Jan 01, 2021 Roll Left & Right (QC): 6 Sit to Lying (QC): 6 Lying-Sitting on Side/Bed(QC): 6 Sit to Stand (QC): 6 Chair/Rxs-kg-Gtvyj Xfer(QC): 6 Toilet Transfer (QC): 6 Car Transfer (QC): 6 Does the Patient Walk: No and Walking Goal IS indicated Walk 10 feet (QC): 6 Walk 50ft with 2 Turns (QC): 6 Walk 150 ft (QC): 6 Walking 10ft on Uneven Surface: 4 1 Step (curb) (QC): 4 4 Steps (QC): 4 12 Steps (QC): 4 Picking up an Object (QC): 5 Does the Pt use WC or Scooter?: No Wheel 50 feet with 2 turns (QC: 9 Wheel 150 feet: 9 PT Plan Problem List Problem List: Activity Tolerance, Functional Strength, Safety, Balance, Gait, Transfer, Bed Mobility, ROM Treatment/Plan Treatment Plan: Continue Plan of Care Treatment Plan: Bed Mobility, Education, Functional Activity Erick, Functional Strength, Group Therapy, Gait, Safety, Therapeutic Exercise, Transfers Treatment Duration: Jan 01, 2021 Frequency: At least 5 of 7 days/Wk (IRF) Estimated Hrs Per Day: Other (see notation) Patient and/or Family Agrees t: Yes Safety Risks/Education Patient Education: Gait Training, Transfer Techniques, Correct Positioning, W/C Management, Safety Issues Teaching Recipient: Patient Teaching Methods: Demonstration, Discussion Response to Teaching: Reinforcement Needed Time/GCodes Time In: 929 Time Out: 1045 Total Billed Treatment Time: 75 Total Billed Treatment 1 visit EX 15' FA 60' co-treated with OT for 75' JENSEN AMBRIZ PT Dec 30, 2020 10:48
[2020-12-30] MEDS: ADVAIR HFA 115/21 MCG INHALER 8 GM IH SCH ×2 (11:08→21:06)
[2020-12-30] MEDS: UMECLIDINIUM BROMIDE (INCRUSE ELLIPTA) 7'S IH SCH (11:08)
--- NOTE | 2020-12-30 11:57 | Occupational Ther Daily Note ---
OT Current Status-Daily Note Subjective No pain reported. Appearance Pt. up in wheelchair. Agrees to work with therapy. Mental Status/Objective Patient Orientation: Person, Place, Time, Situation ADL-Treatment Therapy Code Descriptions/Definitions Functional [place] Measure: 0=Not Assessed/NA 4=Minimal Assistance 1=Total Assistance 5=Supervision or Setup 2=Maximal Assistance 6=Modified [place] 3=Moderate Assistance 7=Complete IndependenceSCALE: Activities may be completed with or without assistive devices. 4-Skauarfxsa-uownodt completes the activity by him/herself with no assistance from a helper. 5-Set-up or Clean-up Assistance-helper sets up or cleans up; patient completes activity. [place] assists only prior to or following the activity. 4-Supervision or Touching Assistance-helper provides verbal cues and/or touching/steadying and/or contact guard assistance as patient completes activity. Assistance may be provided throughout the activity or intermittently. 3-Partial/Moderate Assistance-helper does LESS THAN HALF the effort. [place] lifts, holds or supports trunk or limbs, but provides less than half the effort. 2-Substantial/Maximal Assistance-helper does MORE THAN HALF the effort. [place] lifts or holds trunk or limbs and provides more than half the effort. 8-Tazagmcps-ypcqnn does ALL the effort. Patient does none of the effort to complete the activity. Or, the assistance of 2 or more helpers is required for the patient to complete the activity. If activity was not attempted, code reason: 7-Patient Refused. 9-Not Applicable-not attempted and the patient did not perform the activity before the current illness, exacerbation or injury. 10-Not Attempted due to Environmental Limitations-(lack of equipment, weather restraints, etc.). 88-Not Attempted due to Medical Conditions or Safety Concerns. Pt. agrees to work with both PT/OT due to skilled need of assistance x 2. Pt. fatigues easily and requires mod/max x 2 for sit-stand at times. Pt. on 4 L 02. Self propels wheelchair to therapy gym with min assist. PT facilitates transfe rs and mobility while OT works on hand placement of walker, upright posture, and UE exercises. Pt. stands multiple times from wheelchair and practices ambulating with walker. Pt. attempts step but once he steps up onto it, his legs wont extend and a chair has to be placed behind him quickly. Pt. works on sit-manager administration parallel bar with mod/max assistance. PT facilitates sit-stand and OT encourages upright posture, hand placement on bars, and weight shifts. Alternated between UE/LE exercises for increased endurance/strength. Pt. requires multiple rest breaks after each activity. Pt. is able to self propel back to room. All needs met. Education OT Patient Education: Correct positioning, Exercise program, Modified ADL te chniques, Progress toward Goal/Update tx plan, Purpose of tx/functional activities, Reviewed precautions, Rehab process, Transfer techniques Teaching Recipient: Patient Teaching Methods: Demonstration, Discussion Response to Teaching: Verbalize Understanding, Return Demonstration OT Short Term Goals Short Term Goals Time Frame: Dec 11, 2020 Eatin Oral hygiene: 88 Toileting hygiene: 2 Shower/bathe self: 3 Upper body dressin Lower body dressin Putting on/taking off footwear: 6 OT Leak [employer] Goals Prison Goals Time Frame: Dec 25, 2020 Eating (QC): 6 Oral Hygiene (QC): 6 Toileting Hygiene (QC): 5 Shower/Bathe Self (QC): 5 Upper Body Dressing (QC): 6 Lower Body Dressing (QC): 4 On/Off Footwear (QC): 6 Additional Goals: 1-Demonstrate ADL Tasks, 2-Verbalize Understanding, 3-I mproveStrength/Erick 1=Demonstrate adherence to instructed precautions during ADL tasks. 2=Patient will verbalize/demonstrate understanding of assistive devices/modifications for ADL. 3=Patient will improve strength/tolerance for activity to enable patient to perform ADL's. OT Education/Plan Problem List/Assessment Assessment: Decreased Activ Tolerance, Decreased UE Strength, Dependent Transfers, Impaired Funct Balance, Impaired I ADL's, Impaired Self-Care Skills Discharge Recommendations Plan/Recommendations: Continue POC Therapy Discharge Recommendati: Home & Family, Post Acute OT Treatment Plan/Plan of Care Treatment,Training & Education: Yes Patient would benefit from OT for education, treatment and training to promote independence in ADL's, mobility, safety and/or upper extremity function for ADL's. Plan of Care: ADL Retraining, Caregiver Training, Functional Mobility, Group Exercise/Act as Ind, UE Funct Exercise/Act Treatment Duration: Dec 25, 2020 Frequency: Modified Program (IRF) Estimated Hrs Per Day: 1.5 hours per day Agreement: Yes Rehab Potential: Fair Time/GCodes Start Time: 09:30 Stop Time: 10:45 Total Time Billed (hr/min): 75 Billed Treatment Time 1, FA x 60minutes, Ex x 15minutes CAMILA SINCLAIR OT Dec 30, 2020 11:57
[2020-12-30 16:18] VITALS: BP 113/60
--- NOTE | 2020-12-30 16:51 | Diagnostic Imaging Report ---
HISTORY: Injury to the toe last April with persistent pain. Swelling and redness. COMPARISON: None. TECHNIQUE: Two views of the right foot. FINDINGS: No acute fracture is seen in the right foot. There is a cortical defect at the medial aspect of the great toe proximal phalangeal head. Cystlike changes are seen at the MTP joint which are likely degenerative. Mild degenerative changes are scattered throughout the toes. There is moderate dorsal soft tissue swelling. There is enthesopathy of the calcaneus. IMPRESSION: 1. Cortical defect of the right great toe proximal phalangeal head. This appears to be well-corticated and is thought most likely a deformity from remote trauma. Also in the differential is erosive change from chronic infection or possibly a gout arthropathy. 2. Moderate dorsal soft tissue swelling of the right foot. Dictated by: Dictated on workstation # [id number]
[2020-12-30] MEDS: MELATONIN 3 MG TABLET PO SCH (20:38)
[2020-12-30] MEDS: MIRTAZAPINE 15 MG (REMERON) TAB PO SCH (20:39)
[2020-12-31 05:45] VITALS: BP 149/77
[2020-12-31] MEDS: inSUlin ASPART (NovoLOG) 1 UNIT/0.01 ML (CHARGE PER UNIT) SC SCH ×7 (05:46→20:21)
[2020-12-31] MEDS: FLUTICASONE NASAL SPRAY (FLONASE) 16 GM BTL NS SCH (06:21)
[2020-12-31] MEDS: SALINE NASAL SPRAY (OCEAN) 45 ML BTL NS SCH ×3 (06:21→20:23)
[2020-12-31] MEDS: SALIVA STIMULANT MOUTH SPRAY (BIOTENE) 1.5 OZ MM SCH ×4 (06:22→19:42)
--- NOTE | 2020-12-31 07:55 | Podiatry Progress Note ---
Standard Progress Note Progress Notes/Assess & Plan Date Seen by a Provider: Dec 31, 2020 Time Seen by a Provider: 07:52 Progress/Assessment & Plan Consultation was dictated. Dx: Gout right hallux Plan: Will discuss NSAIDs with Dr. Dawkins. Recommend a follow up Uric Acid level in one week. Final Diagnosis Gout, right foot HAIR COLON DPM Dec 31, 2020 07:55
[2020-12-31 08:00] VITALS: BP 119/74
[2020-12-31] MEDS: DOCUSATE SODIUM 100 MG (COLACE) CAP PO SCH ×2 (08:15→20:25)
[2020-12-31] MEDS: APIXABAN 5 MG (ELIQUIS) TABLET PO SCH ×2 (08:15→20:19)
[2020-12-31] MEDS: SENNA W/DOCUSATE (SENOKOT S) TABLET PO SCH ×2 (08:15→20:25)
[2020-12-31] MEDS: TAMSULOSIN 0.4 MG (FLOMAX) CAP PO SCH (08:16)
[2020-12-31] MEDS: FINASTERIDE (PROSCAR) 5 MG TAB PO SCH (08:16)
[2020-12-31] MEDS: predniSONE 10 MG TAB PO SCH (08:16)
[2020-12-31] MEDS: ASCORBIC ACID (VIT C) 500 MG TABLET PO SCH ×2 (08:17→17:45)
[2020-12-31] MEDS: meTOprolol TARTRATE 50 MG (LOPRESSOR) TAB PO SCH ×2 (08:18→20:19)
[2020-12-31] MEDS: VITAMIN D3 25 MCG (1,000 UNITS) TABLET PO SCH (08:18)
[2020-12-31] MEDS: PANTOPRAZOLE 40 MG (PROTONIX) TAB PO SCH (08:18)
[2020-12-31] MEDS: LOSARTAN 25 MG (COZAAR) TAB PO SCH (08:18)
[2020-12-31] MEDS: GABAPENTIN 100 MG (NEURONTIN) CAP PO SCH ×3 (08:18→20:19)
[2020-12-31] MEDS: polyethylene glycoL POWDER 17 GM (MIRALAX) PACK PO SCH ×2 (08:20→19:42)
[2020-12-31] MEDS: ASPIRIN 81 MG CHEW (CHILDREN'S ASA) PO SCH (08:22)
--- NOTE | 2020-12-31 08:25 | CONSULTATION REPORT ---
DATE OF SERVICE: 12/31/2020 HISTORY OF PRESENT ILLNESS: This 80-year-old who has a recent history of COVID-19 with pneumonia and was admitted to [facility] for rehabilitation purposes. He indicates that he had a fall a few weeks ago resulting in pain to the right forefoot as well as the left lower leg. He complains of residual pain associated with the right great toe. The onset is sudden. He denies any history of gout. PAST MEDICAL HISTORY: He has a history of hypertension, diabetes mellitus, vitamin D deficiency, herpes oral lesions, sleep apnea, high cholesterolemia, hypertension, neuropathy, arthritis. SOCIAL HISTORY: The patient is single. He is retired and is a former smoker. ALLERGIES: He has no known drug allergies. CURRENT MEDICATIONS: Listed on the patient's chart. PHYSICAL EXAMINATION: LOWER EXTREMITY: The patient has 2/4 dorsalis pedis pulse, 2/4 posterior tibial pulse bilaterally. Cap refill time is less than 3 seconds. There is 2+ pitting edema to the lower extremity, ankle and foot bilaterally. NEUROLOGIC: The patient has diminished vibratory sensation to the forefoot bilaterally. Intact light touch sensation is noted bilaterally. DERMATOLOGIC: The patient has erythema to the dorsal medial aspect of the right hallux, especially at the interphalangeal joint. There are some thick, dystrophic changes to the right hallux toenail; however, there is no surrounding erythema. There is no active exudate. There is no open lesion noted to the foot bilaterally. MUSCULOSKELETAL: The patient has pain with palpation to the medial aspect of the right hallux interphalangeal joint with direct palpation as well as with passive range of motion. The patient has no pain with passive range of motion of the first metatarsophalangeal joint bilaterally. There is no significant discomfort with passive range of motion of the ankle joint, subtalar joint, midtarsal or tarsometatarsal joints bilaterally. LABORATORY DATA: X-rays were reviewed that were taken on 12/30/2020 that demonstrate periarticular erosion associated with the distal portion of the proximal phalanx, medial aspect. There are also erosions noted to the right first metatarsal head and base of the proximal phalanx. No gross fracture or dislocation is identified. No gas in the soft tissue was identified on the AP, lateral or oblique views. On the oblique view of the right hallux, the periarticular erosions are once again demonstrated to the head of the proximal phalanx of the right hallux. The x-ray report also indicated no gross fracture or dislocation, the cortical defects were also noted by the radiologist and he indicated mild degenerative changes scattered throughout the toes. There is moderate dorsal soft tissue swelling. There is an enthesiopathy of the calcaneus and the impression was cortical defect of the right great toe, proximal phalangeal head. This appears to be well corticated and is thought most likely a deformity from remote trauma. Also in the differential, there are erosive changes from chronic infection or possibly a gout arthropathy. ASSESSMENT: Gout, right foot, diabetic neuropathy. PLAN: Various options were discussed with the patient today. We discussed diabetic foot care in general. I will discuss anti-inflammatory medication for this patient with primary care doctor as well as the hospitalist. I will reevaluate the uric acid level, which appears to be within normal limits at this time. We will reevaluate the uric acid in 1 week period of time. Job ID: [id number] DocumentID: [id number] Dictated Date: 12/31/2020 08:06:42 [employer] Patching Machine Operator Date: 12/31/2020 08:25:12 Dictated By: HEATHER PLATA
--- NOTE | 2020-12-31 08:30 | PM&R Progress Note ---
Subjective HPI/CC On Admission Date Seen by Provider: Dec 31, 2020 Time Seen by Provider: 08:40 Subjective/Events-last exam 12/31/20: Dr. Rob diagnosed gout so Indocin was started Remains on 3.5 liters of O2 Scared to not use the sit to stand 12/30/20: Bowels moved yesterday Doing pretty well Right great toe pain so consulted Dr. Rob Uric acid will be added and X-ray of the right foot 12/29/20: Patient frustrated BM yesterday Sputum produced and sent down to lab? Sugar 196 No pain meds required today 12/28/20: Alevan on his buttock Coughed up some green sputum 3 times yesterday but lungs are clear BM large today Oxycodone for his left foot pain helped 2+ edema Sugar 167 He is very pessimistic about his overall progress which cannot be redirected 12/27/20: Transferring without the site to stand now Improved overall BM+ Alevan vs. butt paste on buttock He sits in chair all day long on computer 12/26/20: Insurance declined skilled for now Standing and actually progressing well 2L/min and doing well DC scheduled APAP TID 12/25/20: Awaiting [facility] placement Actually working pretty well with therapy Denies any significant new pain Blurry vision still continues Didnt sleep real well last night 12/24/20: Eyes were better but the more he works on the computer the blurry issues return DC is on hold due to NH processes 12/23/20: Pt doing pretty well Buttock decubitus ulcer needs further treatment Discharge planned for tomorrow Hemaglobin 9.3 Midline will be discontinued at his request 12/22/20: Home O2 evaluation tomorrow for DC Wednesday DM education will be provided DC planned for NH 12/21/20: Doing well Slept well BM today Edema improved on KRIS's Decubitus ulcers worsened due to sitting in chair all day long IS use increased 12/20/20: Now has daily complaints about minor things since he was notified last week he would need a [place] Nurse broke his grabber so will obtain replacement for him Butt paste placed on buttocks Stage 2 No other issues 12/19/20: No major issues Bowels are moving group home placement on Wednesday12/18/20: Discharge Wednesday to the [facility] Family training did not go well Son was there but did not engage Insists on going home but that would not be a possibility Placing Sherrill on buttock 12/17/20: Family training today at 10:00 Still has a stage 2 buttock decubitus ulcer Overall feels like he is doing much better Son at bedside when I rounded later today and he was evaluating his progress 12/16/20: Pt doing pretty well Bowels moved today Left midline is functioning Blood sugar 147 Stage 2 decubitus ulcer on the buttock Working really hard to stand 12/15/20: Overall doing well No issues BM+ No falls 12/14/20: Doing well BM+ Dyspnea still continues No pain 12/13/20: Patient more alert today and energized No pain reported Oxycodone helps the foot pain Participating with therapy 12/12/20: Pt doing a lot better Having a lot of pain, takes Oxycodone for his foot and leg pain Bowels are moving Sleeping better Pt very well could require a [facility] since he lives alone and is just not progressing well 12/11/20: No major issues Pretty much has plateaued and not made much progress with ambulation Epistaxis of the left nostril Nasal sprays will be continued Re-check and check with insurance coverage but he very well may need to be in a [facility] 12/10/20: Pt doing pretty well Slept on and off last night Remains on 4 liters of O2 Swelling in his feel is pretty minimal Did not use his BiPAP last night and that likely is the cause of not sleeping well 12/09/20: Pt slept pretty well Bowels are moving PLTs are 97, 000 Normal WBC down from when he first arrived Denies any significant issues Trying to get strong enough to walk 12/08/20: Slept well last night Remeron and Melatonin has helped him a lot Sinus tachy last night BM 12/06/20 so laxatives given No other issues 12/07/20: Slept better Yonker provided for phlem HR 60 Appreciate Cardiology 4L/min O2 BM 12/06/20 12/06/20: HR 122 Cardiology consulted Sugar 54 so decreasing insulin BM++ No pain reported No sleeping well so added hypnotics of Melatonin and Remeron 12/05/20: Patient doing well Worn out from fatigue Sugars are ok No pain reported Tachycardic so consulting Dr Carranza Midline was accidently pulled out so need a new one placed Checked meds and labs Review of Systems General: Fatigue Pulmonary: Dyspnea Musculoskeletal: foot pain Neurological: Weakness Objective Exam Vital Signs Vital Signs Date Time Temp Pulse Resp B/P (MAP) Pulse Ox O2 Delivery O2 Flow Rate FiO2 12/31/20 20:00 Nasal Cannula 3.50 12/31/20 19:29 92 12/31/20 16:00 36.4 96 20 110/66 (81) Capillary Refill : General Appearance: No Apparent Distress, WD/WN, Anxious, Chronically ill, Obese HEENT: PERRL/EOMI, Normal ENT Inspection, Pharynx Normal Neck: Full Range of Motion, Normal Inspection, Non Tender, Supple, Carotid Bruit Respiratory: Chest Non Tender, Lungs Clear, No Accessory Muscle Use, No Respiratory Distress, Decreased Breath Sounds Cardiovascular: Regular Rate, Rhythm, No Gallop, No JVD, No Murmur, Normal Peripheral Pulses Gastrointestinal: Normal Bowel Sounds, No Organomegaly, No Pulsatile Mass, Non Tender, Soft Back: Normal Inspection, No CVA Tenderness, No Vertebral Tenderness Extremity: Normal Capillary Refill, Normal Inspection, Normal Range of Motion, Non Tender, No Calf Tenderness, Pedal Edema Neurologic/Psychiatric: Alert, Oriented x3, No Motor/Sensory Deficits, 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 FIM Transfers Therapy Code Descriptions/Definitions Functional [place] Measure: 0=Not Assessed/NA 4=Minimal Assistance 1=Total Assistance 5=Supervision or Setup 2=Maximal Assistance 6=Modified [place] 3=Moderate Assistance 7=Complete IndependenceSCALE: Activities may be completed with or without assistive devices. 1-Cdvkysxzyx-humfkqh completes the activity by him/herself with no assistance from a helper. 5-Set-up or Clean-up Assistance-helper sets up or cleans up; patient completes activity. [place] assists only prior to or following the activity. 4-Supervision or Touching Assistance-helper provides verbal cues and/or touching/steadying and/or contact guard assistance as patient completes activity. Assistance may be provided throughout the activity or intermittently. 3-Partial/Moderate Assistance-helper does LESS THAN HALF the effort. [place] lifts, holds or supports trunk or limbs, but provides less than half the effort. 2-Substantial/Maximal Assistance-helper does MORE THAN HALF the effort. [place] lifts or holds trunk or limbs and provides more than half the effort. 9-Synadwgxy-tbtruj does ALL the effort. Patient does none of the effort to complete the activity. Or, the assistance of 2 or more helpers is required for the patient to complete the activity. If activity was not attempted, code reason: 7-Patient Refused. 9-Not Applicable-not attempted and the patient did not perform the activity before the current illness, exacerbation or injury. 10-Not Attempted due to Environmental Limitations-(lack of equipment, weather restraints, etc.). 88-Not Attempted due to Medical Conditions or Safety Concerns. Roll Left to Right (QC): 3 Sit to Lying (QC): 3 Sit to Stand (QC): 2 Chair/Vjr-kb-Yftca Xfer(QC): 3 Car Transfer (QC): 1 Gait Training Does the Patient Walk?: Yes Distance: 20'x2 Walk 10 feet (QC): 4 Walk 50 ft with 2 Turns(QC): 88 Walk 150 ft (QC): 88 Walking 10ft/uneven surface-QC: 3 Gait Persons Needed: 1 Gait Assistive Device: FWW Wheelchair Training Does the Pt Use a Wheelchair?: Yes Wheel 50 ft with 2 turns (QC): 4 Wheel 150 ft (QC): 5 Type of Wheelchair: Manual Stair Training #of Steps: 1 1 Step (curb) (QC): 2 4 Steps (QC): 88 12 Steps (QC): 88 Stairs: Pattern: Step to Balance Picking up an Object (QC): 88 ADL-Treatment Eating (QC): 6 Oral Hygiene (QC): 6 Bathing Location: L Arm, R Arm, L Upper Leg, R Upper Leg, Chest, Abdomen, Perineal Area Shower/Bathe Self (QC): 7 Upper Body Dressing (QC): 5 (s/u) Lower Body Dressing (QC): 1 (Due to need of Ax2 (PT assist sit to stand, OT addresses pant hike). 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 Obesity DM Neuropathy Anemia O2 dependence Right great toe pain consulted Dr Rob 12/30/20 Plan: IRF protocol Monitor O2 O2 supplement 12/05/20: O2 maintained IRF protocol Cardiology consultation appreciated Midline replacement 12/06/20: Cardiology consult appreciated Decrease insulin Midline Monitor closely 12/07/20: Monitor closely O2 wean Increase acitivity Maintain Remeron and Melatonin 12/08/20: Monitor closely Check labs in am Monitor tachycardia Remeron and Melatonin 12/09/20: Labs normal Improved strength Weaning O2 Monitor insomnia Increase insulin 12/10/20: Monitor O2 Increase strength Severe myopathy of legs 12/11/20: Difficult to progress Continue therapy May need NHP 12/12/20: Pain control with Oxycodone Monitor bowels Monitor O2 12/13/20: Monitor pain Wean O2 CPAP mask seems to be working better 12/14/20: Improved status Stood up today with help O2 12/15/20: Wean O2 Monitor ambulation CPAP at night 12/16/20: Monitor progress Decubitus ulcer management Monitor BP 12/17/20: Family education/training today Monitor O2 CPAP with O2 12/18/20: Monitor O2 [place] Wednesday Continue to work on stamina 12/19/20: Monitor O2 CPAP 12/20/20: Decubitus ulcer management Monitor O2 Replace grabber 12/21/20: Monitor O2 KRIS CPAP 12/22/20: DC Wednesday to [place] Home O2 evaluation 12/23/20: DC midline DC tomorrow to [place] Needs eye exam soon for blurry vision 12/24/20: DC on hold Monitor O2 12/25/20: Continue therapy Making significant progress 12/26/20: Monitor progress Standing now May be able to DC home? 12/27/20: Much improved status Improved standing No pain reported 12/28/20: Walked a bit but he gets discouraged so quickly Pain controlled in his foot Monitor cough 12/29/20: Started scheduled insulin AC Adjusted Levemir to 10 units HS since sugars are low in am and maintained Levemir 20 units at bfast Check labs in am 12/30/20: Right great toe pain eval by Dr Rob Check uric acid and xray Monitor sugar 12/31/20: Indocin for gout Monitor closely Pain control (1) COVID-19 (2) RICHY on CPAP (3) Obesity (4) Diabetes (5) Hypertension (6) Edema (7) Neuropathy (8) Anemia (9) Advanced age DEANNA BOO DO Dec 31, 2020 08:30
[2020-12-31] MEDS: UMECLIDINIUM BROMIDE (INCRUSE ELLIPTA) 7'S IH SCH (08:52)
[2020-12-31] MEDS: ADVAIR HFA 115/21 MCG INHALER 8 GM IH SCH ×2 (08:52→19:28)
[2020-12-31] MEDS ORDERED: INDOMETHACIN 25 MG (INDOCIN) CAP PO SCH (09:00)
[2020-12-31] MEDS: INDOMETHACIN 25 MG (INDOCIN) CAP PO SCH ×3 (09:30→20:19)
--- NOTE | 2020-12-31 12:54 | Physical Therapy Daily Note ---
PT Daily Note-Current Subjective Patient in recliner pre tx, agrees to PT, has no complaints of pain, will be co- treating with OT due to poor patient mobility, strength, endurance, SOB with activity, coordinate UE and LE during activity, safety and reduce risk of falls. Appearance Patient in WC at bedside post tx with nurse call, phone, tray, all needs met. Mental Status Patient Orientation: Person, Place, Situation Attachments: Oxygen Transfers SCALE: Activities may be completed with or without assistive devices. 6-Zlkgyhxwiu-wjmcvkt completes the activity by him/herself with no assistance from a helper. 5-Set-up or Clean-up Assistance-helper sets up or cleans up; patient completes activity. [place] assists only prior to or following the activity. 4-Supervision or Touching Assistance-helper provides verbal cues and/or touching/steadying and/or contact guard assistance as patient completes activity. Assistance may be provided throughout the activity or intermittently. 3-Partial/Moderate Assistance-helper does LESS THAN HALF the effort. [place] lifts, holds or supports trunk or limbs, but provides less than half the effort. 2-Substantial/Maximal Assistance-helper does MORE THAN HALF the effort. [place] lifts or holds trunk or limbs and provides more than half the effort. 5-Uxszuceem-cdcrzk does ALL the effort. Patient does none of the effort to complete the activity. Or, the assistance of 2 or more helpers is required for the patient to complete the activity. If activity was not attempted, code reason: 7-Patient Refused. 9-Not Applicable-not attempted and the patient did not perform the activity before the current illness, exacerbation or injury. 10-Not Attempted due to Environmental Limitations-(lack of equipment, weather restraints, etc.). 88-Not Attempted due to Medical Conditions or Safety Concerns. Sit to Stand (QC): 2 Chair/Uge-yw-Iulke Xfer(QC): 3 After ambulation patient transfers to shower bench for shower, needs to stand several times for dressing and bathing, when done transfers to and then at bedside. Weight Bearing Full Weight Bearing Full Weight Bearing Gait Training Distance: 10'x3 Walk 10 feet (QC): 3 Gait Assistive Device: FWW WC follow, min assist, very SOB after ambulating 10', needs significant rest breaks Treatments PT performed transfers, ambulation, standing and positioning during bathing and dressing. OT performed bathing, dressing, UE positioning and safety during activity Assessment Current Status: Poor Progress very fatigued/SOB with activity today PT Short Term Goals Short Term Goals Time Frame: Dec 11, 2020 Roll Left & Right: 4 (met) Sit to lyin (met) Lying to sitting on side of be: 4 (met) Sit to stand: 3 Chair/tax-yo-mqykr transfer: 3 Walk 10 feet: 3 Walk 50 feet with two turns: 3 PT Buffet Runner Goals Buffet Runner Goals PT Buffet Runner Goals Time Frame: Jan 01, 2021 Roll Left & Right (QC): 6 Sit to Lying (QC): 6 Lying-Sitting on Side/Bed(QC): 6 Sit to Stand (QC): 6 Chair/Xyq-kp-Bcmvb Xfer(QC): 6 Toilet Transfer (QC): 6 Car Transfer (QC): 6 Does the Patient Walk: No and Walking Goal IS indicated Walk 10 feet (QC): 6 Walk 50ft with 2 Turns (QC): 6 Walk 150 ft (QC): 6 Walking 10ft on Uneven Surface: 4 1 Step (curb) (QC): 4 4 Steps (QC): 4 12 Steps (QC): 4 Picking up an Object (QC): 5 Does the Pt use WC or Scooter?: No Wheel 50 feet with 2 turns (QC: 9 Wheel 150 feet: 9 PT Plan Problem List Problem List: Activity Tolerance, Functional Strength, Safety, Balance, Gait, Transfer, Bed Mobility, ROM Treatment/Plan Treatment Plan: Continue Plan of Care Treatment Plan: Bed Mobility, Education, Functional Activity Erick, Functional Strength, Group Therapy, Gait, Safety, Therapeutic Exercise, Transfers Treatment Duration: Jan 01, 2021 Frequency: At least 5 of 7 days/Wk (IRF) Estimated Hrs Per Day: Other (see notation) Patient and/or Family Agrees t: Yes Safety Risks/Education Patient Education: Gait Training, Transfer Techniques, Correct Positioning, Safety Issues Teaching Recipient: Patient Teaching Methods: Demonstration, Discussion Response to Teaching: Reinforcement Needed Time/GCodes Time In: 1000 Time Out: 1100 Total Billed Treatment Time: 60 Total Billed Treatment 1 visit FA 60' JENSEN AMBRIZ PT Dec 31, 2020 12:54
--- NOTE | 2020-12-31 14:45 | Occupational Ther Daily Note ---
OT Current Status-Daily Note Subjective No pain reported. Appearance Pt. up in chair. Pt. states that he feels tired this date. Mental Status/Objective Patient Orientation: Person, Place, Time, Situation Attachments: Oxygen ADL-Treatment Therapy Code Descriptions/Definitions Functional [place] Measure: 0=Not Assessed/NA 4=Minimal Assistance 1=Total Assistance 5=Supervision or Setup 2=Maximal Assistance 6=Modified [place] 3=Moderate Assistance 7=Complete IndependenceSCALE: Activities may be completed with or without assistive devices. 2-Sgwkeqwkrl-lddjiqu completes the activity by him/herself with no assistance from a helper. 5-Set-up or Clean-up Assistance-helper sets up or cleans up; patient completes activity. [place] assists only prior to or following the activity. 4-Supervision or Touching Assistance-helper provides verbal cues and/or touching/steadying and/or contact guard assistance as patient completes activity. Assistance may be provided throughout the activity or intermittently. 3-Partial/Moderate Assistance-helper does LESS THAN HALF the effort. [place] lifts, holds or supports trunk or limbs, but provides less than half the effort. 2-Substantial/Maximal Assistance-helper does MORE THAN HALF the effort. [place] lifts or holds trunk or limbs and provides more than half the effort. 0-Xtszmavii-sfpvli does ALL the effort. Patient does none of the effort to complete the activity. Or, the assistance of 2 or more helpers is required for the patient to complete the activity. If activity was not attempted, code reason: 7-Patient Refused. 9-Not Applicable-not attempted and the patient did not perform the activity before the current illness, exacerbation or injury. 10-Not Attempted due to Environmental Limitations-(lack of equipment, weather restraints, etc.). 88-Not Attempted due to Medical Conditions or Safety Concerns. Eating (QC): 6 Oral Hygiene (QC): 5 Shower/Bathe Self (QC): 1 (Pt. is able to wash self seated on shower chair. 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 had been incontinent of bowel in shorts. OT cleanses rear yo area.) Other Treatment Pt. seen for partial co-treat with PT due to need of skilled assistance x2 for mobility due to low endurance. Pt. stood multiple times with mod/max x 2 for sit-stand at walker. Pt. able to ambulate with min assist. Please see PT note for distance ambulated. Pt. verbalizes that he is tired, and declines further ambulation. Pt. transfers into shower with mod assist. Completes ADLs. PT facilitates transfer training and positioning while OT addresses ability to shower and dress self. Stands with max assist x 2 to transfer back to wheelchair. Pt. completes UE exercises with red theraband, 3 exercises x 25 reps each in all planes, while alternating with LE exercises. Completes for continued overall strengthening with daily tasks. Pt. up in wheelchair at end of session. All needs met. Education OT Patient Education: Correct positioning, Exercise program, Modified ADL techniques, Progress toward Goal/Update tx plan, Purpose of tx/functional activities, Reviewed precautions, Rehab process, Transfer techniques Teaching Recipient: Patient Teaching Methods: Demonstration, Discussion Response to Teaching: Verbalize Understanding, Return Demonstration OT Short Term Goals Short Term Goals Time Frame: Dec 11, 2020 Eatin Oral hygiene: 88 Toileting hygiene: 2 Shower/bathe self: 3 Upper body dressin Lower body dressin Putting on/taking off footwear: 6 OT Retread Builder Goals Retread Builder Goals Time Frame: Dec 25, 2020 Eating (QC): 6 Oral Hygiene (QC): 6 Toileting Hygiene (QC): 5 Shower/Bathe Self (QC): 5 Upper Body Dressing (QC): 6 Lower Body Dressing (QC): 4 On/Off Footwear (QC): 6 Additional Goals: 1-Demonstrate ADL Tasks, 2-Verbalize Understanding, 3- ImproveStrength/Erick 1=Demonstrate adherence to instructed precautions during ADL tasks. 2=Patient will verbalize/demonstrate understanding of assistive devices/modifications for ADL. 3=Patient will improve strength/tolerance for activity to enable patient to perform ADL's. OT Education/Plan Problem List/Assessment Assessment: Decreased Activ Tolerance, Impaired I ADL's, Impaired Self-Care Skills Discharge Recommendations Plan/Recommendations: Continue POC Treatment Plan/Plan of Care Treatment,Training & Education: Yes Patient would benefit from OT for education, treatment and training to promote independence in ADL's, mobility, safety and/or upper extremity function for ADL's. Plan of Care: ADL Retraining, Caregiver Training, Functional Mobility, Group Exercise/Act as Ind, UE Funct Exercise/Act Treatment Duration: Dec 25, 2020 Frequency: Modified Program (IRF) Estimated Hrs Per Day: 1.5 hours per day Agreement: Yes Rehab Potential: Fair Time/GCodes Start Time: 09:45 Stop Time: 11:00 Total Time Billed (hr/min): 75 Billed Treatment Time 2670-8085 1, FA x 15minutes [id number] FA x 15minutes, ADL x 45minutes (Co-treatment with PT. Please see above note for designated roles.) CAMILA SINCLAIR OT Dec 31, 2020 14:45
--- NOTE | 2020-12-31 15:40 | Physical Therapy Daily Note ---
PT Daily Note-Current Subjective Patient in WC at bedside pre tx, agrees to PT, has no complaints of pain but states his hamstrings feel tight, requests some stretching. Appearance Patient in WC post tx with nurse call, phone, tray, all needs met. Mental Status Patient Orientation: Person, Place, Situation Transfers SCALE: Activities may be completed with or without assistive devices. 9-Txwjmhdbql-mgsslef completes the activity by him/herself with no assistance from a helper. 5-Set-up or Clean-up Assistance-helper sets up or cleans up; patient completes activity. [place] assists only prior to or following the activity. 4-Supervision or Touching Assistance-helper provides verbal cues and/or touching/steadying and/or contact guard assistance as patient completes activity. Assistance may be provided throughout the activity or intermittently. 3-Partial/Moderate Assistance-helper does LESS THAN HALF the effort. [place] lifts, holds or supports trunk or limbs, but provides less than half the effort. 2-Substantial/Maximal Assistance-helper does MORE THAN HALF the effort. [place] lifts or holds trunk or limbs and provides more than half the effort. 4-Qgiaemgnj-urrxla does ALL the effort. Patient does none of the effort to complete the activity. Or, the assistance of 2 or more helpers is required for the patient to complete the activity. If activity was not attempted, code reason: 7-Patient Refused. 9-Not Applicable-not attempted and the patient did not perform the activity before the current illness, exacerbation or injury. 10-Not Attempted due to Environmental Limitations-(lack of equipment, weather restraints, etc.). 88-Not Attempted due to Medical Conditions or Safety Concerns. Weight Bearing Full Weight Bearing Full Weight Bearing Exercises Seated Therapy Exercises: Ankle pumps, Long arc quads, Hip flexion Seated Reps: 20 (3 sets) BLE hamstring stretching Treatments BLE exercise Assessment Current Status: Fair Progress slowly improving functional mobility PT Short Term Goals Short Term Goals Time Frame: Dec 11, 2020 Roll Left & Right: 4 (met) Sit to lyin (met) Lying to sitting on side of be: 4 (met) Sit to stand: 3 Chair/ebg-nb-unxji transfer: 3 Walk 10 feet: 3 Walk 50 feet with two turns: 3 PT Dietitian Therapeutic Goals Dietitian Therapeutic Goals PT Correction Goals Time Frame: Jan 01, 2021 Roll Left & Right (QC): 6 Sit to Lying (QC): 6 Lying-Sitting on Side/Bed(QC): 6 Sit to Stand (QC): 6 Chair/Vvn-rb-Ioryl Xfer(QC): 6 Toilet Transfer (QC): 6 Car Transfer (QC): 6 Does the Patient Walk: No and Walking Goal IS indicated Walk 10 feet (QC): 6 Walk 50ft with 2 Turns (QC): 6 Walk 150 ft (QC): 6 Walking 10ft on Uneven Surface: 4 1 Step (curb) (QC): 4 4 Steps (QC): 4 12 Steps (QC): 4 Picking up an Object (QC): 5 Does the Pt use WC or Scooter?: No Wheel 50 feet with 2 turns (QC: 9 Wheel 150 feet: 9 PT Plan Problem List Problem List: Activity Tolerance, Functional Strength, Safety, Balance, Gait, Transfer, Bed Mobility, ROM Treatment/Plan Treatment Plan: Continue Plan of Care Treatment Plan: Bed Mobility, Education, Functional Activity Erick, Functional Strength, Group Therapy, Gait, Safety, Therapeutic Exercise, Transfers Treatment Duration: Jan 01, 2021 Frequency: At least 5 of 7 days/Wk (IRF) Estimated Hrs Per Day: Other (see notation) Patient and/or Family Agrees t: Yes Safety Risks/Education Patient Education: Correct Positioning, Safety Issues Teaching Recipient: Patient Teaching Methods: Demonstration, Discussion Response to Teaching: Reinforcement Needed Time/GCodes Time In: 1525 Time Out: 1540 Total Billed Treatment Time: 15 Total Billed Treatment 1 visit EX JENSEN SNIDER PT Dec 31, 2020 15:40
[2020-12-31 16:00] VITALS: BP 110/66
[2020-12-31] MEDS: MELATONIN 3 MG TABLET PO SCH (20:19)
[2020-12-31] MEDS: MIRTAZAPINE 15 MG (REMERON) TAB PO SCH (20:19)
[2020-12-31] MEDS: ACETAMINOPHEN 325 MG TABLET PO PRN (20:20)
[2021-01-01] MEDS: inSUlin ASPART (NovoLOG) 1 UNIT/0.01 ML (CHARGE PER UNIT) SC SCH ×7 (05:11→21:14)
[2021-01-01 05:54] VITALS: BP 120/67
[2021-01-01] MEDS: ADVAIR HFA 115/21 MCG INHALER 8 GM IH SCH ×2 (07:44→19:21)
[2021-01-01] MEDS: UMECLIDINIUM BROMIDE (INCRUSE ELLIPTA) 7'S IH SCH (07:44)
[2021-01-01 08:00] VITALS: BP 88/55
[2021-01-01] MEDS: ASPIRIN 81 MG CHEW (CHILDREN'S ASA) PO SCH (08:27)
[2021-01-01] MEDS: TAMSULOSIN 0.4 MG (FLOMAX) CAP PO SCH (08:27)
[2021-01-01] MEDS: predniSONE 10 MG TAB PO SCH (08:28)
[2021-01-01] MEDS: PANTOPRAZOLE 40 MG (PROTONIX) TAB PO SCH (08:28)
[2021-01-01] MEDS: VITAMIN D3 25 MCG (1,000 UNITS) TABLET PO SCH (08:28)
[2021-01-01] MEDS: GABAPENTIN 100 MG (NEURONTIN) CAP PO SCH ×3 (08:28→21:17)
[2021-01-01] MEDS: DOCUSATE SODIUM 100 MG (COLACE) CAP PO SCH ×2 (08:28→21:16)
[2021-01-01] MEDS: ASCORBIC ACID (VIT C) 500 MG TABLET PO SCH ×2 (08:28→17:16)
[2021-01-01] MEDS: INDOMETHACIN 25 MG (INDOCIN) CAP PO SCH ×3 (08:28→21:17)
[2021-01-01] MEDS: APIXABAN 5 MG (ELIQUIS) TABLET PO SCH ×2 (08:29→21:16)
[2021-01-01] MEDS: FINASTERIDE (PROSCAR) 5 MG TAB PO SCH (08:29)
[2021-01-01 08:30] VITALS: BP 119/77
[2021-01-01] MEDS: SALINE NASAL SPRAY (OCEAN) 45 ML BTL NS SCH ×3 (08:35→21:13)
[2021-01-01] MEDS: meTOprolol TARTRATE 50 MG (LOPRESSOR) TAB PO SCH (08:36)
[2021-01-01] MEDS: FLUTICASONE NASAL SPRAY (FLONASE) 16 GM BTL NS SCH (08:36)
[2021-01-01] MEDS: SALIVA STIMULANT MOUTH SPRAY (BIOTENE) 1.5 OZ MM SCH ×4 (08:36→21:15)
[2021-01-01] MEDS: SENNA W/DOCUSATE (SENOKOT S) TABLET PO SCH ×2 (08:37→21:16)
[2021-01-01] MEDS: polyethylene glycoL POWDER 17 GM (MIRALAX) PACK PO SCH ×2 (08:37→21:15)
--- NOTE | 2021-01-01 09:22 | PM&R Progress Note ---
Subjective HPI/CC On Admission Date Seen by Provider: Jan 01, 2021 Time Seen by Provider: 09:30 Subjective/Events-last exam 01/01/21: Pt was slightly hypotensive today but cardiology is managing Indocin is helping the gout in his foot Bowels are moving 3.5 liters maintained DC planned for 01/08/21 to [place] 12/31/20: Dr. Rob diagnosed gout so Indocin was started Remains on 3.5 liters of O2 Scared to not use the sit to stand 12/30/20: Bowels moved yesterday Doing pretty well Right great toe pain so consulted Dr. Rob Uric acid will be added and X-ray of the right foot 12/29/20: Patient frustrated BM yesterday Sputum produced and sent down to lab? Sugar 196 No pain meds required today 12/28/20: Alevan on his buttock Coughed up some green sputum 3 times yesterday but lungs are clear BM large today Oxycodone for his left foot pain helped 2+ edema Sugar 167 He is very pessimistic about his overall progress which cannot be redirected 12/27/20: Transferring without the site to stand now Improved overall BM+ Alevan vs. butt paste on buttock He sits in chair all day long on computer 12/26/20: Insurance declined skilled for now Standing and actually progressing well 2L/min and doing well DC scheduled APAP TID 12/25/20: Awaiting assisted placement Actually working pretty well with therapy Denies any significant new pain Blurry vision still continues Didnt sleep real well last night 12/24/20: Eyes were better but the more he works on the computer the blurry issues return DC is on hold due to [place] processes 12/23/20: Pt doing pretty well Buttock decubitus ulcer needs further treatment Discharge planned for tomorrow Hemaglobin 9.3 Midline will be discontinued at his request 12/22/20: Home O2 evaluation tomorrow for DC Wednesday DM education will be provided DC planned for [place] 12/21/20: Doing well Slept well BM today Edema improved on KRIS's Decubitus ulcers worsened due to sitting in chair all day long IS use increased 12/20/20: Now has daily complaints about minor things since he was notified last week he would need a [place] Nurse broke his grabber so will obtain replacement for him Butt paste placed on buttocks Stage 2 No other issues 12/19/20: No major issues Bowels are moving shelter placement on Wednesday12/18/20: Discharge Wednesday to the assisted Family training did not go well Son was there but did not engage Insists on going home but that would not be a possibility Placing Sherrill on buttock 12/17/20: Family training today at 10:00 Still has a stage 2 buttock decubitus ulcer Overall feels like he is doing much better Son at bedside when I rounded later today and he was evaluating his progress 12/16/20: Pt doing pretty well Bowels moved today Left midline is functioning Blood sugar 147 Stage 2 decubitus ulcer on the buttock Working really hard to stand 12/15/20: Overall doing well No issues BM+ No falls 12/14/20: Doing well BM+ Dyspnea still continues No pain 12/13/20: Patient more alert today and energized No pain reported Oxycodone helps the foot pain Participating with therapy 12/12/20: Pt doing a lot better Having a lot of pain, takes Oxycodone for his foot and leg pain Bowels are moving Sleeping better Pt very well could require a assisted since he lives alone and is just not progressing well 12/11/20: No major issues Pretty much has plateaued and not made much progress with ambulation Epistaxis of the left nostril Nasal sprays will be continued Re-check and check with insurance coverage but he very well may need to be in a assisted 12/10/20: Pt doing pretty well Slept on and off last night Remains on 4 liters of O2 Swelling in his feel is pretty minimal Did not use his BiPAP last night and that likely is the cause of not sleeping well 12/09/20: Pt slept pretty well Bowels are moving PLTs are 97, 000 Normal WBC down from when he first arrived Denies any significant issues Trying to get strong enough to walk 12/08/20: Slept well last night Remeron and Melatonin has helped him a lot Sinus tachy last night BM 12/06/20 so laxatives given No other issues 12/07/20: Slept better Yonker provided for phlem HR 60 Appreciate Cardiology 4L/min O2 BM 12/06/20 12/06/20: HR 122 Cardiology consulted Sugar 54 so decreasing insulin BM++ No pain reported No sleeping well so added hypnotics of Melatonin and Remeron 12/05/20: Patient doing well Worn out from fatigue Sugars are ok No pain reported Tachycardic so consulting Dr Carranza Midline was accidently pulled out so need a new one placed Checked meds and labs Review of Systems Musculoskeletal: foot pain Neurological: Weakness, Incoordination Objective Exam Vital Signs Vital Signs Date Time Temp Pulse Resp B/P (MAP) Pulse Ox O2 Delivery O2 Flow Rate FiO2 01/01/21 20:30 97 Nasal Cannula 3.00 01/01/21 19:37 116 109/69 (82) 01/01/21 17:38 36.2 20 Capillary Refill : General Appearance: No Apparent Distress, WD/WN, Anxious, Chronically ill, Obese HEENT: PERRL/EOMI, Normal ENT Inspection, Pharynx Normal Neck: Full Range of Motion, Normal Inspection, Non Tender, Supple, Carotid Bruit Respiratory: Chest Non Tender, Lungs Clear, No Accessory Muscle Use, No Respiratory Distress, Decreased Breath Sounds Cardiovascular: Regular Rate, Rhythm, No Gallop, No JVD, No Murmur, Normal Peripheral Pulses Gastrointestinal: Normal Bowel Sounds, No Organomegaly, No Pulsatile Mass, Non Tender, Soft Back: Normal Inspection, No CVA Tenderness, No Vertebral Tenderness Extremity: Normal Capillary Refill, Normal Inspection, Normal Range of Motion, Non Tender, No Calf Tenderness, Pedal Edema Neurologic/Psychiatric: Alert, Oriented x3, No Motor/Sensory Deficits, clerical dentist assistant II- XII Norm as Tested, Depressed Affect, Motor Weakness Skin: Normal Color, Warm/Dry Lymphatic: No Adenopathy Results/Procedures Lab Patient resulted labs reviewed. FIM Transfers Therapy Code Descriptions/Definitions Functional [place] Measure: 0=Not Assessed/NA 4=Minimal Assistance 1=Total Assistance 5=Supervision or Setup 2=Maximal Assistance 6=Modified [place] 3=Moderate Assistance 7=Complete IndependenceSCALE: Activities may be completed with or without assistive devices. 0-Dznnvjdrat-rylryty completes the activity by him/herself with no assistance from a helper. 5-Set-up or Clean-up Assistance-helper sets up or cleans up; patient completes activity. [place] assists only prior to or following the activity. 4-Supervision or Touching Assistance-helper provides verbal cues and/or touching/steadying and/or contact guard assistance as patient completes activity. Assistance may be provided throughout the activity or intermittently. 3-Partial/Moderate Assistance-helper does LESS THAN HALF the effort. [place] l ifts, holds or supports trunk or limbs, but provides less than half the effort. 2-Substantial/Maximal Assistance-helper does MORE THAN HALF the effort. [place] lifts or holds trunk or limbs and provides more than half the effort. 1-Dmpvohozq-lzjgce does ALL the effort. Patient does none of the effort to complete the activity. Or, the assistance of 2 or more helpers is required for t he patient to complete the activity. If activity was not attempted, code reason: 7-Patient Refused. 9-Not Applicable-not attempted and the patient did not perform the activity before the current illness, exacerbation or injury. 10-Not Attempted due to Environmental Limitations-(lack of equipment, weather restraints, etc.). 88-Not Attempted due to Medical Conditions or Safety Concerns. Roll Left to Right (QC): 3 Sit to Lying (QC): 3 Sit to Stand (QC): 2 Chair/Dfa-st-Sigzl Xfer(QC): 3 Car Transfer (QC): 1 Gait Training Does the Patient Walk?: Yes Distance: 10'x3 Walk 10 feet (QC): 3 Walk 50 ft with 2 Turns(QC): 88 Walk 150 ft (QC): 88 Walking 10ft/uneven surface-QC: 3 Gait Persons Needed: 1 Gait Assistive Device: FWW Wheelchair Training Does the Pt Use a Wheelchair?: Yes Wheel 50 ft with 2 turns (QC): 4 Wheel 150 ft (QC): 5 Type of Wheelchair: Manual Stair Training #of Steps: 1 1 Step (curb) (QC): 2 4 Steps (QC): 88 12 Steps (QC): 88 Stairs: Pattern: Step to Balance Picking up an Object (QC): 88 ADL-Treatment Eating (QC): 6 Oral Hygiene (QC): 5 Bathing Location: L Arm, R Arm, L Upper Leg, R Upper Leg, Chest, Abdomen, Perineal Area Shower/Bathe Self (QC): 1 (Pt. is able to wash self seated on shower chair. However, requires max assist to diesel locomotive engineer shower, and max assist of another person to cleanse rear yo area.) Upper Body Dressing (QC): 4 Lower Body Dressing (QC): 2 On/Off Footwear (QC): 3 Toileting Hygiene (QC): 1 (Pt. had been incontinent of bowel in shorts. 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 Obesity DM Neuropathy Anemia O2 dependence Right great toe pain consulted Dr Rob 12/30/20 dx with gout and placed on Indocin Plan: IRF protocol Monitor O2 O2 supplement 12/05/20: O2 maintained IRF protocol Cardiology consultation appreciated Midline replacement 12/06/20: Cardiology consult appreciated Decrease insulin Midline Monitor closely 12/07/20: Monitor closely O2 wean Increase acitivity Maintain Remeron and Melatonin 12/08/20: Monitor closely Check labs in am Monitor tachycardia Remeron and Melatonin 12/09/20: Labs normal Improved strength Weaning O2 Monitor insomnia Increase insulin 12/10/20: Monitor O2 Increase strength Severe myopathy of legs 12/11/20: Difficult to progress Continue therapy May need NHP 12/12/20: Pain control with Oxycodone Monitor bowels Monitor O2 12/13/20: Monitor pain Wean O2 CPAP mask seems to be working better 12/14/20: Improved status Stood up today with help O2 12/15/20: Wean O2 Monitor ambulation CPAP at night 12/16/20: Monitor progress Decubitus ulcer management Monitor BP 12/17/20: Family education/training today Monitor O2 CPAP with O2 12/18/20: Monitor O2 NH Wednesday Continue to work on stamina 12/19/20: Monitor O2 CPAP 12/20/20: Decubitus ulcer management Monitor O2 Replace grabber 12/21/20: Monitor O2 KRIS CPAP 12/22/20: DC Wednesday to [place] Home O2 evaluation 12/23/20: DC midline DC tomorrow to [place] Needs eye exam soon for blurry vision 12/24/20: DC on hold Monitor O2 12/25/20: Continue therapy Making significant progress 12/26/20: Monitor progress Standing now May be able to DC home? 12/27/20: Much improved status Improved standing No pain reported 12/28/20: Walked a bit but he gets discouraged so quickly Pain controlled in his foot Monitor cough 12/29/20: Started scheduled insulin AC Adjusted Levemir to 10 units HS since sugars are low in am and maintained Levemir 20 units at bfast Check labs in am 12/30/20: Right great toe pain eval by Dr Rob Check uric acid and xray Monitor sugar 12/31/20: Indocin for gout Monitor closely Pain control 01/01/21: Gout treatment Monitor closely Pain control IRF protocol (1) COVID-19 (2) RICHY on CPAP (3) Obesity (4) Diabetes (5) Hypertension (6) Edema (7) Neuropathy (8) Anemia (9) Advanced age (10) Gout DEANNA BOO DO Jan 01, 2021 09:22
[2021-01-01] MEDS ORDERED: meTOprolol TARTRATE 50 MG (LOPRESSOR) TAB PO SCH (10:15)
[2021-01-01] MEDS: meTOprolol TARTRATE 25 MG (LOPRESSOR) TABLET PO SCH ×2 (10:33→21:17)
[2021-01-01 10:35] VITALS: BP 119/59
--- NOTE | 2021-01-01 11:05 | Physical Therapy Daily Note ---
PT Daily Note-Current Subjective Pt.agrees to Rx. States he wants to get a lifting hoist for home so someone can get him up and down every day dada from the toilet. Pt states he has stayed in a nursing facility before and didnt mind it at all. " I can do everything for myself except stand up and turn and sit on something else" Pain Location: No Pain Reported Mental Status Patient Orientation: Normal For Age Attachments: Oxygen (3.5) Transfers SCALE: Activities may be completed with or without assistive devices. 0-Lixwguglij-zjahobz completes the activity by him/herself with no assistance from a helper. 5-Set-up or Clean-up Assistance-helper sets up or cleans up; patient completes activity. [place] assists only prior to or following the activity. 4-Supervision or Touching Assistance-helper provides verbal cues and/or touching/steadying and/or contact guard assistance as patient completes activity. Assistance may be provided throughout the activity or intermittently. 3-Partial/Moderate Assistance-helper does LESS THAN HALF the effort. [place] lifts, holds or supports trunk or limbs, but provides less than half the effort. 2-Substantial/Maximal Assistance-helper does MORE THAN HALF the effort. [place] lifts or holds trunk or limbs and provides more than half the effort. 8-Lskmizmxg-nzbtfi does ALL the effort. Patient does none of the effort to complete the activity. Or, the assistance of 2 or more helpers is required for the patient to complete the activity. If activity was not attempted, code reason: 7-Patient Refused. 9-Not Applicable-not attempted and the patient did not perform the activity before the current illness, exacerbation or injury. 10-Not Attempted due to Environmental Limitations-(lack of equipment, weather restraints, etc.). 88-Not Attempted due to Medical Conditions or Safety Concerns. Roll Left & Right (QC): 5 Sit to Lying (QC): 6 Lying to Sitting/Side of Bed(Q: 6 Sit to Stand (QC): 3 Chair/Fsk-fv-Kibaz Xfer(QC): 3 sit to stand required min assist 3 trials and mod assist 3 trials. Pt. attempted SPT w/c to bed x 3 trials with pt. melting and failing before reaching the bed in a 3 -4 step SPT. Pt. very SOA and weak. Pt. then demonstrated near indep use of slide brd w/c to bed and bed to w/c with only instruction for better positioning of board for safety Weight Bearing Full Weight Bearing Full Weight Bearing Wheelchair Training Does the Pt Use a Wheelchair?: Yes Wheel 50 ft with 2 turns (QC): 4 Wheel 150 ft (QC): 4 Type of Wheelchair: Manual pt. running over O2 tubing multiple times with tubing wound around wheels requiring assist to untangle. Exercises Supine Ex: Ankle pumps, Heel Slides, Hip abd/add Supine Reps: 10 Seated Therapy Exercises: Ankle pumps, Sit to stand, Long arc quads, Hip flexion, Hip abd/add Seated Reps: 15 Treatments w/c mob, dynamic standing, attemtped SPTs, sit to stands, LE exercises, slide brd TRFs Assessment Current Status: Fair Progress dependent for safety with O2 tubing, dependent for TRFs from one surface to a nother unless using slide brd, continues very weakened and SOA with activity PT Short Term Goals Short Term Goals Time Frame: Dec 11, 2020 Roll Left & Right: 4 (met) Sit to lyin (met) Lying to sitting on side of be: 4 (met) Sit to stand: 3 Chair/fqc-qd-nqddu transfer: 3 Walk 10 feet: 3 Walk 50 feet with two turns: 3 PT Care Home Goals Care Home Goals PT Care Home Goals Time Frame: Jan 01, 2021 Roll Left & Right (QC): 6 Sit to Lying (QC): 6 Lying-Sitting on Side/Bed(QC): 6 Sit to Stand (QC): 6 Chair/Ebp-km-Bqqtp Xfer(QC): 6 Toilet Transfer (QC): 6 Car Transfer (QC): 6 Does the Patient Walk: No and Walking Goal IS indicated Walk 10 feet (QC): 6 Walk 50ft with 2 Turns (QC): 6 Walk 150 ft (QC): 6 Walking 10ft on Uneven Surface: 4 1 Step (curb) (QC): 4 4 Steps (QC): 4 12 Steps (QC): 4 Picking up an Object (QC): 5 Does the Pt use WC or Scooter?: No Wheel 50 feet with 2 turns (QC: 9 Wheel 150 feet: 9 PT Plan Treatment/Plan Treatment Plan: Continue Plan of Care Treatment Plan: Bed Mobility, Education, Functional Activity Erick, Functional Strength, Group Therapy, Gait, Safety, Therapeutic Exercise, Transfers Treatment Duration: Jan 01, 2021 Frequency: At least 5 of 7 days/Wk (IRF) Estimated Hrs Per Day: Other (see notation) Patient and/or Family Agrees t: Yes Safety Risks/Education Patient Education: Transfer Techniques, Correct Positioning, W/C Management, Disease Process, Safety Issues Teaching Recipient: Patient Teaching Methods: Demonstration, Discussion Response to Teaching: Verbalize Understanding, Return Demonstration, Reinforcement Needed Time/GCodes Time In: 1000 Time Out: 1100 Total Billed Treatment Time: 60 Total Billed Treatment 1,EX20m,FA25m,WC15m SUSANNA CONNER ELECTRICAL REPAIRER Jan 01, 2021 11:05
--- NOTE | 2021-01-01 11:23 | Occupational Ther Daily Note ---
OT Current Status-Daily Note Subjective No pain reported. Appearance Pt. up in chair. Agrees to work with OT. Mental Status/Objective Patient Orientation: Person, Place, Time, Situation ADL-Treatment Therapy Code Descriptions/Definitions Functional [place] Measure: 0=Not Assessed/NA 4=Minimal Assistance 1=Total Assistance 5=Supervision or Setup 2=Maximal Assistance 6=Modified [place] 3=Moderate Assistance 7=Complete IndependenceSCALE: Activities may be completed with or without assistive devices. 8-Hahxssnumi-eacxtrh completes the activity by him/herself with no assistance from a helper. 5-Set-up or Clean-up Assistance-helper sets up or cleans up; patient completes activity. [place] assists only prior to or following the activity. 4-Supervision or Touching Assistance-helper provides verbal cues and/or touching/steadying and/or contact guard assistance as patient completes activity. Assistance may be provided throughout the activity or intermittently. 3-Partial/Moderate Assistance-helper does LESS THAN HALF the effort. [place] lifts, holds or supports trunk or limbs, but provides less than half the effort. 2-Substantial/Maximal Assistance-helper does MORE THAN HALF the effort. [place] lifts or holds trunk or limbs and provides more than half the effort. 2-Qixnicgct-jzlpso does ALL the effort. Patient does none of the effort to complete the activity. Or, the assistance of 2 or more helpers is required for the patient to complete the activity. If activity was not attempted, code reason: 7-Patient Refused. 9-Not Applicable-not attempted and the patient did not perform the activity before the current illness, exacerbation or injury. 10-Not Attempted due to Environmental Limitations-(lack of equipment, weather restraints, etc.). 88-Not Attempted due to Medical Conditions or Safety Concerns. Eating (QC): 6 Oral Hygiene (QC): 6 On/Off Footwear: 3 (Min assist to don shoes.) Other Treatment Pt. up in chair. Self propels to therapy gym. Pt. on 3.5L 02. Pt. works on standing at bar with proper technique of scooting out and leaning forward. Pt. requires max assist each time, and is able to stand approximately 2 minutes. Noted that pt. is able to stand without knees being blocked. Pt. does this 3 times with rest break in between. OT introduces slide board as option at home, in case pt. having weakness. Pt. practices placing board with mod assist, and is able to slide to and from mat with therapist sitting in front and stabilizing knees and chair. Pt. verbalizes that he has purchased a hydraulic seat cushion for his recliner at home. Pt. also verbalizes that he has a power chair that he can use around his house as well. Pt. self propelled back to room. All needs met up in chair. Education OT Patient Education: Correct positioning, Exercise program, Modified ADL techniques, Progress toward Goal/Update tx plan, Purpose of tx/functional activities, Reviewed precautions, Rehab process, Transfer techniques Teaching Recipient: Patient Teaching Methods: Demonstration, Discussion Response to Teaching: Verbalize Understanding, Return Demonstration OT Short Term Goals Short Term Goals Time Frame: Dec 11, 2020 Eatin Oral hygiene: 88 Toileting hygiene: 2 Shower/bathe self: 3 Upper body dressin Lower body dressin Putting on/taking off footwear: 6 OT E Business Specialist Goals Fdc Goals Time Frame: Dec 25, 2020 Eating (QC): 6 Oral Hygiene (QC): 6 Toileting Hygiene (QC): 5 Shower/Bathe Self (QC): 5 Upper Body Dressing (QC): 6 Lower Body Dressing (QC): 4 On/Off Footwear (QC): 6 Additional Goals: 1-Demonstrate ADL Tasks, 2-Verbalize Understanding, 3- ImproveStrength/Erick 1=Demonstrate adherence to instructed precautions during ADL tasks. 2=Patient will verbalize/demonstrate understanding of assistive devices/modifi cations for ADL. 3=Patient will improve strength/tolerance for activity to enable patient to perform ADL's. OT Education/Plan Problem List/Assessment Assessment: Decreased Activ Tolerance, Dependent Transfers, Impaired Funct Balance, Impaired I ADL's, Impaired Self-Care Skills, Restricted Funct UE ROM Discharge Recommendations Plan/Recommendations: Continue POC Therapy Discharge Recommendati: Post Acute OT Treatment Plan/Plan of Care Treatment,Training & Education: Yes Patient would benefit from OT for education, treatment and training to promote independence in ADL's, mobility, safety and/or upper extremity function for ADL 's. Plan of Care: ADL Retraining, Caregiver Training, Functional Mobility, Group Exercise/Act as Ind, UE Funct Exercise/Act Treatment Duration: Dec 25, 2020 Frequency: Modified Program (IRF) Estimated Hrs Per Day: 1.5 hours per day Agreement: Yes Rehab Potential: Fair Time/GCodes Start Time: 08:30 Stop Time: 09:45 Total Time Billed (hr/min): 75 Billed Treatment Time 1, FA x 60minutes, Ex x 15minutes CAMILA SINCLAIR OT Jan 01, 2021 11:23
--- NOTE | 2021-01-01 11:26 | Progress Note - Cardiology ---
Cardiology SOAP Progress Note Subjective: Sitting up at the bedside Objective: I&O/Vital Signs 01/06/21 01/06/21 01/06/21 05:51 07:04 09:00 Temp 36.2 Pulse 88 Resp 18 B/P (MAP) 113/64 (80) Pulse Ox 99 91 O2 Delivery NIV CPAP Nasal Cannula Nasal Cannula O2 Flow Rate 3.50 3.00 3.50 01/06/21 00:00 Intake Total 1350 ml Output Total 900 ml Balance 450 ml Constitutional: AAO x 3 Respiratory: chest is bilaterally symmetric, other (fair to good, bilateral air entry) Cardiovascular: irregularly irregular, S1 and S2, systolic murmur (soft YANET at card base) Gastrointestional: soft, audible bowel sounds Extremities: no lower extremity edema bilateral Neurologic/Psychiatric: no motor/sensory deficits, oriented x 3, other (moves all limbs equally) Results/Procedures: Labs Laboratory Tests 01/05/21 14:16: Glucometer 133H 01/05/21 15:26: Glucometer 114H 01/05/21 19:59: Glucometer 156H 01/06/21 05:25: Glucometer 125H 01/06/21 05:27: White Blood Count 8.5, Red Blood Count 2.50L, Hemoglobin 7.4L, Hematocrit 24L, Mean Corpuscular Volume 96, Mean Corpuscular Hemoglobin 30, Mean Corpuscular Hemoglobin Concent 31L, Red Cell Distribution Width 20.6H, Platelet Count 175, Mean Platelet Volume 9.7, Immature Granulocyte % (Auto) 3, Neutrophils (%) (Auto) 72, Lymphocytes (%) (Auto) 11L, Monocytes (%) (Auto) 13H, Eosinophils (%) (Auto) 0, Basophils (%) (Auto) 1, Neutrophils # (Auto) 6.1, Lymphocytes # (Auto) 0.9L, Monocytes # (Auto) 1.1H, Eosinophils # (Auto) 0.0, Basophils # (Auto) 0.1, Immature Granulocyte # (Auto) 0.2H, Sodium Level 138, Potassium Level 4.1, Chloride Level 102, Carbon Dioxide Level 25, Anion Gap 11, Blood Urea Nitrogen 18, Creatinine 1.04, Estimat Glomerular Filtration Rate > 60, BUN/Creatinine Ratio 17, Glucose Level 117H, Uric Acid 9.2H, Calcium Level 9.0, Corrected Calcium 9.6, Total Bilirubin 0.8, Aspartate Amino Transf (AST/SGOT) 13, Alanine Aminotransferase (ALT/SGPT) 17, Alkaline Phosphatase 57, Total Protein 6.1L, Albumin 3.2 01/06/21 10:46: Glucometer 142H A/P: Assessment: Atrial fibrillation with controlled ventricular rate Critical illness myopathy, COVID-19 RICHY, treated with CPAP, managed by Dr Dawkins Plan: * Low BP this morning, albeit asymptomatic - reduce antihypertensive regimen * Continue apixaban for stroke prophylaxis * Outpt f/u recommended post discharge DONA VALIENTE Jan 01, 2021 11:26
--- NOTE | 2021-01-01 13:26 | Physical Therapy Daily Note ---
PT Daily Note-Current Subjective Pt. states he used the bathroom a little earlier and it was really hard to SPT w/c to toilet and he had to have max assist of 2 . "I'm just so tired from all that I dont think I can do any of this now" Pain Location: No Pain Reported Appearance audible dyspnea with activity Mental Status Patient Orientation: Normal For Age Attachments: Oxygen Transfers SCALE: Activities may be completed with or without assistive devices. 7-Fgwowodfuh-mvmpiea completes the activity by him/herself with no assistance from a helper. 5-Set-up or Clean-up Assistance-helper sets up or cleans up; patient completes activity. [place] assists only prior to or following the activity. 4-Supervision or Touching Assistance-helper provides verbal cues and/or touching/steadying and/or contact guard assistance as patient completes activity. Assistance may be provided throughout the activity or intermittently. 3-Partial/Moderate Assistance-helper does LESS THAN HALF the effort. [place] lifts, holds or supports trunk or limbs, but provides less than half the effort. 2-Substantial/Maximal Assistance-helper does MORE THAN HALF the effort. [place] lifts or holds trunk or limbs and provides more than half the effort. 3-Qzshuomof-poltyx does ALL the effort. Patient does none of the effort to complete the activity. Or, the assistance of 2 or more helpers is required for the patient to complete the activity. If activity was not attempted, code reason: 7-Patient Refused. 9-Not Applicable-not attempted and the patient did not perform the activity before the current illness, exacerbation or injury. 10-Not Attempted due to Environmental Limitations-(lack of equipment, weather restraints, etc.). 88-Not Attempted due to Medical Conditions or Safety Concerns. attempted sit to stands from w/c level. Pt. required max assist and melted to sitting without reaching hands to FWW Weight Bearing Full Weight Bearing Full Weight Bearing Exercises Seated Therapy Exercises: Ankle pumps, Sit to stand (x3), Long arc quads, Chair press-ups, Hip flexion Seated Reps: 10 Assessment Current Status: Poor Progress unable to get to stance and maintain , states he is exhausted from toilet TRF earlier PT Short Term Goals Short Term Goals Time Frame: Dec 11, 2020 Roll Left & Right: 4 (met) Sit to lyin (met) Lying to sitting on side of be: 4 (met) Sit to stand: 3 Chair/rph-pk-pijpb transfer: 3 Walk 10 feet: 3 Walk 50 feet with two turns: 3 PT Operating Room Rn Goals Senior Care Goals PT Senior Care Goals Time Frame: Jan 01, 2021 Roll Left & Right (QC): 6 Sit to Lying (QC): 6 Lying-Sitting on Side/Bed(QC): 6 Sit to Stand (QC): 6 Chair/Map-iw-Rtpkq Xfer(QC): 6 Toilet Transfer (QC): 6 Car Transfer (QC): 6 Does the Patient Walk: No and Walking Goal IS indicated Walk 10 feet (QC): 6 Walk 50ft with 2 Turns (QC): 6 Walk 150 ft (QC): 6 Walking 10ft on Uneven Surface: 4 1 Step (curb) (QC): 4 4 Steps (QC): 4 12 Steps (QC): 4 Picking up an Object (QC): 5 Does the Pt use WC or Scooter?: No Wheel 50 feet with 2 turns (QC: 9 Wheel 150 feet: 9 PT Plan Treatment/Plan Treatment Plan: Continue Plan of Care Treatment Plan: Bed Mobility, Education, Functional Activity Erick, Functional Strength, Group Therapy, Gait, Safety, Therapeutic Exercise, Transfers Treatment Duration: Jan 01, 2021 Frequency: At least 5 of 7 days/Wk (IRF) Estimated Hrs Per Day: Other (see notation) Patient and/or Family Agrees t: Yes Safety Risks/Education Patient Education: Transfer Techniques, Correct Positioning Teaching Recipient: Patient Teaching Methods: Demonstration, Discussion Response to Teaching: Verbalize Understanding, Return Demonstration (very limited), Reinforcement Needed Time/GCodes Time In: 1305 Time Out: 1320 Total Billed Treatment Time: 15 Total Billed Treatment 1,EX15m SUSANNA CONNER [employer]CRAFT POWER PLANT ASSEMBLER Jan 01, 2021 13:26
[2021-01-01 17:38] VITALS: BP 118/65
--- NOTE | 2021-01-01 18:14 | Progress Note - Cardiology ---
Cardiology SOAP Progress Note Subjective: Gen malaise and gen weakness No cp or palp or shortness of breath at rest Chronic, bilateral leg swelling No n/v/d Objective: I&O/Vital Signs 01/01/21 01/01/21 01/01/21 01/01/21 07:44 08:00 08:30 09:00 Pulse 104 106 B/P (MAP) 88/55 (66) 119/77 (91) Pulse Ox 94 O2 Delivery Nasal Cannula Nasal Cannula O2 Flow Rate 4.00 3.50 01/01/21 01/01/21 10:35 17:38 Temp 36.2 Pulse 101 107 Resp 20 B/P (MAP) 119/59 (79) 118/65 (82) Pulse Ox 95 O2 Delivery Nasal Cannula O2 Flow Rate 3.50 01/01/21 00:00 Intake Total 1080 ml Output Total 200 ml Balance 880 ml Constitutional: AAO x 3 Respiratory: chest is bilaterally symmetric, other (fair to good, bilateral air entry) Cardiovascular: irregularly irregular, S1 and S2, systolic murmur (soft YANET at card base) Gastrointestional: soft, audible bowel sounds Extremities: other (mild to mod, bilateral leg edema) Neurologic/Psychiatric: no motor/sensory deficits, oriented x 3, other (moves all limbs equally) Results/Procedures: Labs Laboratory Tests 12/31/20 20:05: Glucometer 235H 01/01/21 05:10: Glucometer 138H 01/01/21 10:57: Glucometer 152H 01/01/21 15:35: Glucometer 217H A/P: Assessment: Low blood pressure on 01/01/20 Atrial fibrillation with controlled ventricular rate Critical illness myopathy, COVID-19 RICHY, treated with CPAP, managed by Dr Dawkins Plan: * Low BP this morning, albeit asymptomatic - reduce antihypertensive regimen * Continue apixaban for stroke prophylaxis * Outpt f/u recommended post discharge KENDRA LINDSAY MD FACP [facility] Jan 01, 2021 18:14
[2021-01-01 19:37] VITALS: BP 109/69
[2021-01-01] MEDS: MELATONIN 3 MG TABLET PO SCH (21:16)
[2021-01-01] MEDS: MIRTAZAPINE 15 MG (REMERON) TAB PO SCH (21:17)
--- NOTE | 2021-01-02 05:55 | PM&R Progress Note ---
Subjective HPI/CC On Admission Date Seen by Provider: Jan 02, 2021 Time Seen by Provider: 10:00 Subjective/Events-last exam 01/02/21: Left foot pain occurred last night Right great toe improved since Indocin BM+ NHP at DC 01/01/21: Pt was slightly hypotensive today but cardiology is managing Indocin is helping the gout in his foot Bowels are moving 3.5 liters maintained DC planned for 01/08/21 to [place] 12/31/20: Dr. Rob diagnosed gout so Indocin was started Remains on 3.5 liters of O2 Scared to not use the sit to stand 12/30/20: Bowels moved yesterday Doing pretty well Right great toe pain so consulted Dr. Rob Uric acid will be added and X-ray of the right foot 12/29/20: Patient frustrated BM yesterday Sputum produced and sent down to lab? Sugar 196 No pain meds required today 12/28/20: Alevan on his buttock Coughed up some green sputum 3 times yesterday but lungs are clear BM large today Oxycodone for his left foot pain helped 2+ edema Sugar 167 He is very pessimistic about his overall progress which cannot be redirected 12/27/20: Transferring without the site to stand now Improved overall BM+ Alevan vs. butt paste on buttock He sits in chair all day long on computer 12/26/20: Insurance declined skilled for now Standing and actually progressing well 2L/min and doing well DC scheduled APAP TID 12/25/20: Awaiting alf placement Actually working pretty well with therapy Denies any significant new pain Blurry vision still continues Didnt sleep real well last night 12/24/20: Eyes were better but the more he works on the computer the blurry issues return DC is on hold due to NH processes 12/23/20: Pt doing pretty well Buttock decubitus ulcer needs further treatment Discharge planned for tomorrow Hemaglobin 9.3 Midline will be discontinued at his request 12/22/20: Home O2 evaluation tomorrow for DC Wednesday DM education will be provided DC planned for NH 12/21/20: Doing well Slept well BM today Edema improved on KRIS's Decubitus ulcers worsened due to sitting in chair all day long IS use increased 12/20/20: Now has daily complaints about minor things since he was notified last week he would need a [place] Nurse broke his grabber so will obtain replacement for him Butt paste placed on buttocks Stage 2 No other issues 12/19/20: No major issues Bowels are moving group home placement on Wednesday12/18/20: Discharge Wednesday to the alf Family training did not go well Son was there but did not engage Insists on going home but that would not be a possibility Placing Alevin on buttock 12/17/20: Family training today at 10:00 Still has a stage 2 buttock decubitus ulcer Overall feels like he is doing much better Son at bedside when I rounded later today and he was evaluating his progress 12/16/20: Pt doing pretty well Bowels moved today Left midline is functioning Blood sugar 147 Stage 2 decubitus ulcer on the buttock Working really hard to stand 12/15/20: Overall doing well No issues BM+ No falls 12/14/20: Doing well BM+ Dyspnea still continues No pain 12/13/20: Patient more alert today and energized No pain reported Oxycodone helps the foot pain Participating with therapy 12/12/20: Pt doing a lot better Having a lot of pain, takes Oxycodone for his foot and leg pain Bowels are moving Sleeping better Pt very well could require a alf since he lives alone and is just not progressing well 12/11/20: No major issues Pretty much has plateaued and not made much progress with ambulation Epistaxis of the left nostril Nasal sprays will be continued Re-check and check with insurance coverage but he very well may need to be in a alf 12/10/20: Pt doing pretty well Slept on and off last night Remains on 4 liters of O2 Swelling in his feel is pretty minimal Did not use his BiPAP last night and that likely is the cause of not sleeping well 12/09/20: Pt slept pretty well Bowels are moving PLTs are 97, 000 Normal WBC down from when he first arrived Denies any significant issues Trying to get strong enough to walk 12/08/20: Slept well last night Remeron and Melatonin has helped him a lot Sinus tachy last night BM 12/06/20 so laxatives given No other issues 12/07/20: Slept better Yonker provided for phlem HR 60 Appreciate Cardiology 4L/min O2 BM 12/06/20 12/06/20: HR 122 Cardiology consulted Sugar 54 so decreasing insulin BM++ No pain reported No sleeping well so added hypnotics of Melatonin and Remeron 12/05/20: Patient doing well Worn out from fatigue Sugars are ok No pain reported Tachycardic so consulting Dr Carranza Midline was accidently pulled out so need a new one placed Checked meds and labs Review of Systems General: Fatigue Pulmonary: Dyspnea Musculoskeletal: foot pain Objective Exam Vital Signs Vital Signs Date Time Temp Pulse Resp B/P (MAP) Pulse Ox O2 Delivery O2 Flow Rate FiO2 01/02/21 20:00 Nasal Cannula 3.50 01/02/21 19:16 94 01/02/21 17:31 36.6 95 20 106/71 (83) Capillary Refill : General Appearance: No Apparent Distress, WD/WN, Anxious, Chronically ill, Obese HEENT: PERRL/EOMI, Normal ENT Inspection, Pharynx Normal Neck: Full Range of Motion, Normal Inspection, Non Tender, Supple, Carotid Bruit Respiratory: Chest Non Tender, Lungs Clear, No Accessory Muscle Use, No Respiratory Distress, Decreased Breath Sounds Cardiovascular: Regular Rate, Rhythm, No Gallop, No JVD, No Murmur, Normal Peripheral Pulses Gastrointestinal: Normal Bowel Sounds, No Organomegaly, No Pulsatile Mass, Non Tender, Soft Back: Normal Inspection, No CVA Tenderness, No Vertebral Tenderness Extremity: Normal Capillary Refill, Normal Inspection, Normal Range of Motion, Non Tender, No Calf Tenderness, Pedal Edema Neurologic/Psychiatric: Alert, Oriented x3, No Motor/Sensory Deficits, chainstitch hemmer II- XII Norm as Tested, Depressed Affect, Motor Weakness Skin: Normal Color, Warm/Dry Lymphatic: No Adenopathy Results/Procedures Lab Patient resulted labs reviewed. FIM Transfers Therapy Code Descriptions/Definitions Functional [place] Measure: 0=Not Assessed/NA 4=Minimal Assistance 1=Total Assistance 5=Supervision or Setup 2=Maximal Assistance 6=Modified [place] 3=Moderate Assistance 7=Complete IndependenceSCALE: Activities may be completed with or without assistive devices. 2-Gizmonbbqr-uzolyav completes the activity by him/herself with no assistance from a helper. 5-Set-up or Clean-up Assistance-helper sets up or cleans up; patient completes activity. [place] assists only prior to or following the activity. 4-Supervision or Touching Assistance-helper provides verbal cues and/or touching/steadying and/or contact guard assistance as patient completes activity. Assistance may be provided throughout the activity or intermittently. 3-Partial/Moderate Assistance-helper does LESS THAN HALF the effort. [place] lifts, holds or supports trunk or limbs, but provides less than half the effort. 2-Substantial/Maximal Assistance-helper does MORE THAN HALF the effort. [place] lifts or holds trunk or limbs and provides more than half the effort. 8-Hepcloygw-wcsenj does ALL the effort. Patient does none of the effort to complete the activity. Or, the assistance of 2 or more helpers is required for the patient to complete the activity. If activity was not attempted, code reason: 7-Patient Refused. 9-Not Applicable-not attempted and the patient did not perform the activity before the current illness, exacerbation or injury. 10-Not Attempted due to Environmental Limitations-(lack of equipment, weather restraints, etc.). 88-Not Attempted due to Medical Conditions or Safety Concerns. Roll Left to Right (QC): 5 Sit to Lying (QC): 6 Sit to Stand (QC): 3 Chair/Lnb-fv-Hvbiw Xfer(QC): 3 Car Transfer (QC): 1 Gait Training Does the Patient Walk?: Yes Distance: 10'x3 Walk 10 feet (QC): 3 Walk 50 ft with 2 Turns(QC): 88 Walk 150 ft (QC): 88 Walking 10ft/uneven surface-QC: 3 Gait Persons Needed: 1 Gait Assistive Device: FWW Wheelchair Training Does the Pt Use a Wheelchair?: Yes Wheel 50 ft with 2 turns (QC): 4 Wheel 150 ft (QC): 4 Type of Wheelchair: Manual Stair Training #of Steps: 1 1 Step (curb) (QC): 2 4 Steps (QC): 88 12 Steps (QC): 88 Stairs: Pattern: Step to Balance Picking up an Object (QC): 88 ADL-Treatment Eating (QC): 6 Oral Hygiene (QC): 6 Bathing Location: L Arm, R Arm, L Upper Leg, R Upper Leg, Chest, Abdomen, Perineal Area Shower/Bathe Self (QC): 1 (Pt. is able to wash self seated on shower chair. However, requires max assist to mechanical engineering director shower, and max assist of another person to cleanse rear yo area.) Upper Body Dressing (QC): 4 Lower Body Dressing (QC): 2 On/Off Footwear (QC): 3 (Min assist to don shoes.) Toileting Hygiene (QC): 1 (Pt. had been incontinent of bowel in shorts. 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 Obesity DM Neuropathy Anemia O2 dependence Right great toe pain consulted Dr Rob 12/30/20 dx with gout and placed on Indocin Plan: IRF protocol Monitor O2 O2 supplement 12/05/20: O2 maintained IRF protocol Cardiology consultation appreciated Midline replacement 12/06/20: Cardiology consult appreciated Decrease insulin Midline Monitor closely 12/07/20: Monitor closely O2 wean Increase acitivity Maintain Remeron and Melatonin 12/08/20: Monitor closely Check labs in am Monitor tachycardia Remeron and Melatonin 12/09/20: Labs normal Improved strength Weaning O2 Monitor insomnia Increase insulin 12/10/20: Monitor O2 Increase strength Severe myopathy of legs 12/11/20: Difficult to progress Continue therapy May need NHP 12/12/20: Pain control with Oxycodone Monitor bowels Monitor O2 12/13/20: Monitor pain Wean O2 CPAP mask seems to be working better 12/14/20: Improved status Stood up today with help O2 12/15/20: Wean O2 Monitor ambulation CPAP at night 12/16/20: Monitor progress Decubitus ulcer management Monitor BP 12/17/20: Family education/training today Monitor O2 CPAP with O2 12/18/20: Monitor O2 NH Wednesday Continue to work on stamina 12/19/20: Monitor O2 CPAP 12/20/20: Decubitus ulcer management Monitor O2 Replace grabber 12/21/20: Monitor O2 KRIS CPAP 12/22/20: DC Wednesday to [place] Home O2 evaluation 12/23/20: DC midline DC tomorrow to [place] Needs eye exam soon for blurry vision 12/24/20: DC on hold Monitor O2 12/25/20: Continue therapy Making significant progress 12/26/20: Monitor progress Standing now May be able to DC home? 12/27/20: Much improved status Improved standing No pain reported 12/28/20: Walked a bit but he gets discouraged so quickly Pain controlled in his foot Monitor cough 12/29/20: Started scheduled insulin AC Adjusted Levemir to 10 units HS since sugars are low in am and maintained Levemir 20 units at bfast Check labs in am 12/30/20: Right great toe pain eval by Dr Rob Check uric acid and xray Monitor sugar 12/31/20: Indocin for gout Monitor closely Pain control 01/01/21: Gout treatment Monitor closely Pain control IRF protocol 01/02/21: O2 Gout treatment Monitor dyspnea (1) COVID-19 (2) RICHY on CPAP (3) Obesity (4) Diabetes (5) Hypertension (6) Edema (7) Neuropathy (8) Anemia (9) Advanced age (10) Gout DEANNA BOO DO Jan 02, 2021 05:55
[2021-01-02 06:00] VITALS: BP 129/76
[2021-01-02] MEDS: inSUlin ASPART (NovoLOG) 1 UNIT/0.01 ML (CHARGE PER UNIT) SC SCH ×7 (06:13→20:05)
[2021-01-02] MEDS: ADVAIR HFA 115/21 MCG INHALER 8 GM IH SCH ×2 (07:07→19:15)
[2021-01-02] MEDS: UMECLIDINIUM BROMIDE (INCRUSE ELLIPTA) 7'S IH SCH (07:07)
[2021-01-02] MEDS: SALIVA STIMULANT MOUTH SPRAY (BIOTENE) 1.5 OZ MM SCH ×4 (08:25→19:22)
[2021-01-02] MEDS: polyethylene glycoL POWDER 17 GM (MIRALAX) PACK PO SCH ×2 (08:25→19:30)
[2021-01-02] MEDS: ASPIRIN 81 MG CHEW (CHILDREN'S ASA) PO SCH (08:51)
[2021-01-02] MEDS: ASCORBIC ACID (VIT C) 500 MG TABLET PO SCH ×2 (08:51→17:04)
[2021-01-02] MEDS: PANTOPRAZOLE 40 MG (PROTONIX) TAB PO SCH (08:51)
[2021-01-02] MEDS: INDOMETHACIN 25 MG (INDOCIN) CAP PO SCH ×3 (08:51→20:02)
[2021-01-02] MEDS: APIXABAN 5 MG (ELIQUIS) TABLET PO SCH ×2 (08:51→20:03)
[2021-01-02] MEDS: VITAMIN D3 25 MCG (1,000 UNITS) TABLET PO SCH (08:52)
[2021-01-02] MEDS: SALINE NASAL SPRAY (OCEAN) 45 ML BTL NS SCH ×3 (08:52→20:02)
[2021-01-02] MEDS: GABAPENTIN 100 MG (NEURONTIN) CAP PO SCH ×3 (08:52→20:03)
[2021-01-02] MEDS: SENNA W/DOCUSATE (SENOKOT S) TABLET PO SCH ×2 (08:52→19:51)
[2021-01-02] MEDS: meTOprolol TARTRATE 25 MG (LOPRESSOR) TABLET PO SCH ×2 (08:52→20:02)
[2021-01-02] MEDS: FINASTERIDE (PROSCAR) 5 MG TAB PO SCH (08:52)
[2021-01-02] MEDS: TAMSULOSIN 0.4 MG (FLOMAX) CAP PO SCH (08:52)
[2021-01-02] MEDS: DOCUSATE SODIUM 100 MG (COLACE) CAP PO SCH ×2 (08:52→19:50)
[2021-01-02] MEDS: FLUTICASONE NASAL SPRAY (FLONASE) 16 GM BTL NS SCH (08:53)
--- NOTE | 2021-01-02 10:29 | Physical Therapy Daily Note ---
PT Daily Note-Current Subjective Patient in WC in room pre tx, agrees to PT, has no complaints of pain, will be co-treating with OT for part of tx due to poor patient mobility, strength, endurance, SOB with activity, coordinate UE and LE with activity, safety and reduce risk of falls. Appearance Patient in WC in room post tx, will continue to work with OT. Mental Status Patient Orientation: Person, Place, Situation, Normal For Age Attachments: Oxygen Transfers SCALE: Activities may be completed with or without assistive devices. 2-Ratkuhityr-rozlsig completes the activity by him/herself with no assistance from a helper. 5-Set-up or Clean-up Assistance-helper sets up or cleans up; patient completes activity. [place] assists only prior to or following the activity. 4-Supervision or Touching Assistance-helper provides verbal cues and/or touching/steadying and/or contact guard assistance as patient completes activity. Assistance may be provided throughout the activity or intermittently. 3-Partial/Moderate Assistance-helper does LESS THAN HALF the effort. [place] lifts, holds or supports trunk or limbs, but provides less than half the effort. 2-Substantial/Maximal Assistance-helper does MORE THAN HALF the effort. [place] lifts or holds trunk or limbs and provides more than half the effort. 9-Krghobaqv-oqosec does ALL the effort. Patient does none of the effort to complete the activity. Or, the assistance of 2 or more helpers is required for the patient to complete the activity. If activity was not attempted, code reason: 7-Patient Refused. 9-Not Applicable-not attempted and the patient did not perform the activity before the current illness, exacerbation or injury. 10-Not Attempted due to Environmental Limitations-(lack of equipment, weather restraints, etc.). 88-Not Attempted due to Medical Conditions or Safety Concerns. Sit to Stand (QC): 3 Chair/Bth-vc-Upkmk Xfer(QC): 4 Mod assist for sit to stand from normal surface. Weight Bearing Full Weight Bearing Full Weight Bearing Gait Training Distance: 20'x3 Walk 10 feet (QC): 4 Gait Assistive Device: FWW WC follow, poor foot clearance but better step length and speed Wheelchair Training Does the Pt Use a Wheelchair?: Yes Wheel 50 ft with 2 turns (QC): 4 Type of Wheelchair: Manual Exercises Patient performed 2 sets of sit to stands from his WC with extra padding to elevated the surface and he was able to do 5 each set without assist. He also did 2 sets of 5 chair pushups Treatments PT performed transfers, ambulation, standing, LE strengthening, OT performed UE strengthening and UE positioning and safety during activity. Assessment Current Status: Fair Progress slowly improving functional mobility but patient needs frequent rest breaks due to SOB and fatigue PT Short Term Goals Short Term Goals Time Frame: Dec 11, 2020 Roll Left & Right: 4 (met) Sit to lyin (met) Lying to sitting on side of be: 4 (met) Sit to stand: 3 Chair/wyt-ro-euoiz transfer: 3 Walk 10 feet: 3 Walk 50 feet with two turns: 3 PT Government Relations Analyst Goals Prison Goals PT Government Relations Analyst Goals Time Frame: Jan 01, 2021 Roll Left & Right (QC): 6 Sit to Lying (QC): 6 Lying-Sitting on Side/Bed(QC): 6 Sit to Stand (QC): 6 Chair/Prj-qt-Kygpw Xfer(QC): 6 Toilet Transfer (QC): 6 Car Transfer (QC): 6 Does the Patient Walk: No and Walking Goal IS indicated Walk 10 feet (QC): 6 Walk 50ft with 2 Turns (QC): 6 Walk 150 ft (QC): 6 Walking 10ft on Uneven Surface: 4 1 Step (curb) (QC): 4 4 Steps (QC): 4 12 Steps (QC): 4 Picking up an Object (QC): 5 Does the Pt use WC or Scooter?: No Wheel 50 feet with 2 turns (QC: 9 Wheel 150 feet: 9 PT Plan Problem List Problem List: Activity Tolerance, Functional Strength, Safety, Balance, Gait, Transfer, Bed Mobility, ROM Treatment/Plan Treatment Plan: Continue Plan of Care Treatment Plan: Bed Mobility, Education, Functional Activity Erick, Functional Strength, Group Therapy, Gait, Safety, Therapeutic Exercise, Transfers Treatment Duration: Jan 01, 2021 Frequency: At least 5 of 7 days/Wk (IRF) Estimated Hrs Per Day: Other (see notation) Patient and/or Family Agrees t: Yes Safety Risks/Education Patient Education: Gait Training, Transfer Techniques, Correct Positioning, W/C Management, Safety Issues Teaching Recipient: Patient Teaching Methods: Demonstration, Discussion Response to Teaching: Reinforcement Needed Time/GCodes Time In: 0930 Time Out: 1030 Total Billed Treatment Time: 60 Total Billed Treatment 1 visit FA 30' EX 30' co-treated from [id number] JENSEN AMBRIZ PT Jan 02, 2021 10:29
--- NOTE | 2021-01-02 11:01 | Progress Note - Cardiology ---
Cardiology SOAP Progress Note Subjective: Sitting up in w/c at the bedside States he feels good today No c/o dizziness or weakness Objective: I&O/Vital Signs 01/07/21 01/07/21 01/07/21 06:15 06:49 06:50 Temp 37.0 Pulse 114 Resp 18 B/P (MAP) 143/86 (105) Pulse Ox 93 95 95 O2 Delivery Nasal Cannula Nasal Cannula Nasal Cannula O2 Flow Rate 4.00 3.00 3.00 01/07/21 00:00 Intake Total 800 ml Output Total 600 ml Balance 200 ml Constitutional: AAO x 3 Respiratory: chest is bilaterally symmetric, other (fair to good, bilateral air entry) Cardiovascular: irregularly irregular, S1 and S2, systolic murmur (soft YANET at card base) Gastrointestional: soft, audible bowel sounds Extremities: other (mild to mod, bilateral leg edema) Neurologic/Psychiatric: no motor/sensory deficits, oriented x 3, other (moves all limbs equally) Results/Procedures: Labs Laboratory Tests 01/06/21 15:31: Glucometer 124H 01/06/21 20:29: Glucometer 128H 01/07/21 06:02: Glucometer 118H 01/07/21 10:49: Glucometer 157H A/P: Assessment: Low blood pressure on 01/01/20 Atrial fibrillation with controlled ventricular rate Critical illness myopathy, COVID-19 RICHY, treated with CPAP, managed by Dr Dawkins Plan: * BP has improved following reduction in BP regimen * Continue current regimen * Continue apixaban for stroke prophylaxis * Outpt f/u recommended post discharge DONA VALIENTE Jan 02, 2021 11:01
--- NOTE | 2021-01-02 11:15 | Physical Therapy Daily Note ---
PT Daily Note-Current Subjective Patient in WC at bedside pre tx, agrees to PT, has no complaints of pain. Appearance Patient in WC at bedside post tx with nurse call, phone, tray, all needs met. Mental Status Patient Orientation: Person, Place, Situation, Normal For Age Attachments: Oxygen Transfers SCALE: Activities may be completed with or without assistive devices. 5-Sukqjpsnef-rgcbdiq completes the activity by him/herself with no assistance from a helper. 5-Set-up or Clean-up Assistance-helper sets up or cleans up; patient completes activity. [place] assists only prior to or following the activity. 4-Supervision or Touching Assistance-helper provides verbal cues and/or touching/steadying and/or contact guard assistance as patient completes activity. Assistance may be provided throughout the activity or intermittently. 3-Partial/Moderate Assistance-helper does LESS THAN HALF the effort. [place] lifts, holds or supports trunk or limbs, but provides less than half the effort. 2-Substantial/Maximal Assistance-helper does MORE THAN HALF the effort. [place] lifts or holds trunk or limbs and provides more than half the effort. 0-Xhmfuhstk-imunea does ALL the effort. Patient does none of the effort to complete the activity. Or, the assistance of 2 or more helpers is required for the patient to complete the activity. If activity was not attempted, code reason: 7-Patient Refused. 9-Not Applicable-not attempted and the patient did not perform the activity before the current illness, exacerbation or injury. 10-Not Attempted due to Environmental Limitations-(lack of equipment, weather restraints, etc.). 88-Not Attempted due to Medical Conditions or Safety Concerns. Weight Bearing Full Weight Bearing Full Weight Bearing Exercises Seated Therapy Exercises: Ankle pumps, Long arc quads, Hip flexion Seated Reps: 20 (3 sets) BLE hamstring stretching Treatments LE AROM and stretching Assessment Current Status: Fair Progress slowly improving LE strength PT Short Term Goals Short Term Goals Time Frame: Dec 11, 2020 Roll Left & Right: 4 (met) Sit to lyin (met) Lying to sitting on side of be: 4 (met) Sit to stand: 3 Chair/hqp-pj-kqwst transfer: 3 Walk 10 feet: 3 Walk 50 feet with two turns: 3 PT Usp Goals Usp Goals PT Usp Goals Time Frame: Jan 01, 2021 Roll Left & Right (QC): 6 Sit to Lying (QC): 6 Lying-Sitting on Side/Bed(QC): 6 Sit to Stand (QC): 6 Chair/Uvq-my-Qkfgl Xfer(QC): 6 Toilet Transfer (QC): 6 Car Transfer (QC): 6 Does the Patient Walk: No and Walking Goal IS indicated Walk 10 feet (QC): 6 Walk 50ft with 2 Turns (QC): 6 Walk 150 ft (QC): 6 Walking 10ft on Uneven Surface: 4 1 Step (curb) (QC): 4 4 Steps (QC): 4 12 Steps (QC): 4 Picking up an Object (QC): 5 Does the Pt use WC or Scooter?: No Wheel 50 feet with 2 turns (QC: 9 Wheel 150 feet: 9 PT Plan Problem List Problem List: Activity Tolerance, Functional Strength, Safety, Balance, Gait, Transfer, Bed Mobility, ROM Treatment/Plan Treatment Plan: Continue Plan of Care Treatment Plan: Bed Mobility, Education, Functional Activity Erick, Functional Strength, Group Therapy, Gait, Safety, Therapeutic Exercise, Transfers Treatment Duration: Jan 01, 2021 Frequency: At least 5 of 7 days/Wk (IRF) Estimated Hrs Per Day: Other (see notation) Patient and/or Family Agrees t: Yes Safety Risks/Education Patient Education: Correct Positioning, Safety Issues Teaching Recipient: Patient Teaching Methods: Demonstration, Discussion Response to Teaching: Reinforcement Needed Time/GCodes Time In: 1100 Time Out: 1115 Total Billed Treatment Time: 15 Total Billed Treatment 1 visit EX JENSEN SNIDER PT Jan 02, 2021 11:15
--- NOTE | 2021-01-02 12:23 | Occupational Ther Daily Note ---
OT Current Status-Daily Note Subjective No pain reported. Appearance Pt. up in chair working with PT. Agrees to work with OT as well. Mental Status/Objective Patient Orientation: Person, Place, Time, Situation Attachments: Oxygen ADL-Treatment Therapy Code Descriptions/Definitions Functional [place] Measure: 0=Not Assessed/NA 4=Minimal Assistance 1=Total Assistance 5=Supervision or Setup 2=Maximal Assistance 6=Modified [place] 3=Moderate Assistance 7=Complete IndependenceSCALE: Activities may be completed with or without assistive devices. 0-Fknukwcakw-gqeveou completes the activity by him/herself with no assistance from a helper. 5-Set-up or Clean-up Assistance-helper sets up or cleans up; patient completes activity. [place] assists only prior to or following the activity. 4-Supervision or Touching Assistance-helper provides verbal cues and/or touching/steadying and/or contact guard assistance as patient completes activity. Assistance may be provided throughout the activity or intermittently. 3-Partial/Moderate Assistance-helper does LESS THAN HALF the effort. [place] lifts, holds or supports trunk or limbs, but provides less than half the effort. 2-Substantial/Maximal Assistance-helper does MORE THAN HALF the effort. [place] lifts or holds trunk or limbs and provides more than half the effort. 5-Olqhyxgfd-rqrfwy does ALL the effort. Patient does none of the effort to complete the activity. Or, the assistance of 2 or more helpers is required for the patient to complete the activity. If activity was not attempted, code reason: 7-Patient Refused. 9-Not Applicable-not attempted and the patient did not perform the activity before the current illness, exacerbation or injury. 10-Not Attempted due to Environmental Limitations-(lack of equipment, weather restraints, etc.). 88-Not Attempted due to Medical Conditions or Safety Concerns. Upper Body Dressing (QC): 4 Pt. already up in wheelchair. Agrees to co-treatment with PT/OT due to skilled need x 2 for mobility/transfers/functional ADL transfers. PT facilitated sit- stand while OT initiated hand placement on parallel bars, and from wheelchair. Pt. practiced different transfers. First sit-stands from parallel bars. Stands several times with need to pull on bars instead of pushing from wheelchair. Pt. requires mod/max assistance. OT places another cushion in chair to increase height of chair. Pt. is able to stand from high level at bars with CGA, multiple times. Rest breaks in between. Practiced "wheelchair" pushups for pressure relief and to engage tricep. With extra cushion, pt. is able to come almost all the way to stand by pushing from armrests. Pt. self propels back to room and completes UE wash at sink. Changes shirt but declines doffing shorts as he only has this pair. Pt. encouraged to have nursing wash shorts tonight so they will be ready in a.m. Pt. completes 20 bilateral squeezes with pink therapy sponge, and 3 bilateral UE exercises x 15 reps each with red theraband, x 2 sets. Completed this for increased UE strength. All needs met in room. Education OT Patient Education: Correct positioning, Exercise program, Modified ADL t echniques, Progress toward Goal/Update tx plan, Purpose of tx/functional activities, Reviewed precautions, Rehab process, Transfer techniques Teaching Recipient: Patient Teaching Methods: Demonstration, Discussion Response to Teaching: Verbalize Understanding, Return Demonstration OT Short Term Goals Short Term Goals Time Frame: Dec 11, 2020 Eatin Oral hygiene: 88 Toileting hygiene: 2 Shower/bathe self: 3 Upper body dressin Lower body dressin Putting on/taking off footwear: 6 OT Halfway Goals Referral Manager Goals Time Frame: Dec 25, 2020 Eating (QC): 6 Oral Hygiene (QC): 6 Toileting Hygiene (QC): 5 Shower/Bathe Self (QC): 5 Upper Body Dressing (QC): 6 Lower Body Dressing (QC): 4 On/Off Footwear (QC): 6 Additional Goals: 1-Demonstrate ADL Tasks, 2-Verbalize Understanding, 3- ImproveStrength/Erick 1=Demonstrate adherence to instructed precautions during ADL tasks. 2=Patient will verbalize/demonstrate understanding of assistive devices/modifications for ADL. 3=Patient will improve strength/tolerance for activity to enable patient to perform ADL's. OT Education/Plan Problem List/Assessment Assessment: Decreased Activ Tolerance, Decreased UE Strength, Dependent Transfers, Impaired Funct Balance, Impaired I ADL's, Impaired Self-Care Skills, Restricted Funct UE ROM Discharge Recommendations Plan/Recommendations: Continue POC Therapy Discharge Recommendati: Post Acute OT Treatment Plan/Plan of Care Treatment,Training & Education: Yes Patient would benefit from OT for education, treatment and training to promote independence in ADL's, mobility, safety and/or upper extremity function for ADL's. Plan of Care: ADL Retraining, Caregiver Training, Functional Mobility, Group Exercise/Act as Ind, UE Funct Exercise/Act Treatment Duration: Dec 25, 2020 Frequency: Modified Program (IRF) Estimated Hrs Per Day: 1.5 hours per day Agreement: Yes Rehab Potential: Fair Time/GCodes Start Time: 09:40 Stop Time: 10:55 Total Time Billed (hr/min): 75 Billed Treatment Time 1181-8076 1, FA x 50minutes (co-treatment with PT. Please see above note for designated roles.) [id number] FA x 10minutes, ADL x 15minutes CAMILA SINCLAIR OT Jan 02, 2021 12:23
[2021-01-02 17:31] VITALS: BP 106/71
--- NOTE | 2021-01-02 17:43 | Progress Note - Cardiology ---
Cardiology SOAP Progress Note Subjective: No cp or palp or syncope or shortness of breath at rest Some gen malaise No n/v/d Objective: I&O/Vital Signs 01/02/21 01/02/21 01/02/21 01/02/21 06:00 07:07 09:16 17:31 Temp 36.2 36.6 Pulse 67 95 Resp 20 20 B/P (MAP) 129/76 (93) 106/71 (83) Pulse Ox 99 95 95 O2 Delivery NIV CPAP Nasal Cannula Nasal Cannula Nasal Cannula O2 Flow Rate 3.00 3.50 3.50 01/02/21 00:00 Intake Total 1300 ml Output Total 1000 ml Balance 300 ml Constitutional: AAO x 3 Respiratory: chest is bilaterally symmetric, other (fair to good, bilateral air entry) Cardiovascular: irregularly irregular, S1 and S2, systolic murmur (soft YANET at card base) Gastrointestional: soft, audible bowel sounds Extremities: other (mild to mod, bilateral leg edema) Neurologic/Psychiatric: no motor/sensory deficits, oriented x 3, other (moves all limbs equally) Results/Procedures: Labs Laboratory Tests 01/01/21 20:15: Glucometer 218H 01/02/21 06:10: Glucometer 124H 01/02/21 10:59: Glucometer 151H 01/02/21 15:41: Glucometer 249H A/P: Assessment: Low blood pressure on 01/01/20, now improved after reduction in meds Atrial fibrillation with controlled ventricular rate Critical illness myopathy, 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
[2021-01-02] MEDS: MIRTAZAPINE 15 MG (REMERON) TAB PO SCH (20:03)
[2021-01-02] MEDS: MELATONIN 3 MG TABLET PO SCH (20:03)
[2021-01-03] MEDS: inSUlin ASPART (NovoLOG) 1 UNIT/0.01 ML (CHARGE PER UNIT) SC SCH ×7 (05:01→20:46)
[2021-01-03 06:00] VITALS: BP 141/76
[2021-01-03] MEDS: ADVAIR HFA 115/21 MCG INHALER 8 GM IH SCH ×2 (07:20→18:31)
[2021-01-03] MEDS: UMECLIDINIUM BROMIDE (INCRUSE ELLIPTA) 7'S IH SCH (07:20)
[2021-01-03] MEDS: SALIVA STIMULANT MOUTH SPRAY (BIOTENE) 1.5 OZ MM SCH ×4 (08:00→20:47)
[2021-01-03] MEDS: ASCORBIC ACID (VIT C) 500 MG TABLET PO SCH ×2 (08:00→17:23)
[2021-01-03] MEDS: VITAMIN D3 25 MCG (1,000 UNITS) TABLET PO SCH (08:01)
[2021-01-03] MEDS: TAMSULOSIN 0.4 MG (FLOMAX) CAP PO SCH (08:01)
[2021-01-03] MEDS: FLUTICASONE NASAL SPRAY (FLONASE) 16 GM BTL NS SCH (08:01)
[2021-01-03] MEDS: SALINE NASAL SPRAY (OCEAN) 45 ML BTL NS SCH ×3 (08:01→20:46)
[2021-01-03] MEDS: meTOprolol TARTRATE 25 MG (LOPRESSOR) TABLET PO SCH ×2 (08:01→20:45)
[2021-01-03] MEDS: PANTOPRAZOLE 40 MG (PROTONIX) TAB PO SCH (08:01)
[2021-01-03] MEDS: ASPIRIN 81 MG CHEW (CHILDREN'S ASA) PO SCH (08:01)
[2021-01-03] MEDS: INDOMETHACIN 25 MG (INDOCIN) CAP PO SCH ×3 (08:01→20:45)
[2021-01-03] MEDS: FINASTERIDE (PROSCAR) 5 MG TAB PO SCH (08:01)
[2021-01-03] MEDS: DOCUSATE SODIUM 100 MG (COLACE) CAP PO SCH ×2 (08:01→20:44)
[2021-01-03] MEDS: GABAPENTIN 100 MG (NEURONTIN) CAP PO SCH ×3 (08:01→20:45)
[2021-01-03] MEDS: APIXABAN 5 MG (ELIQUIS) TABLET PO SCH ×2 (08:01→20:47)
[2021-01-03] MEDS: polyethylene glycoL POWDER 17 GM (MIRALAX) PACK PO SCH ×2 (08:02→20:47)
[2021-01-03] MEDS: SENNA W/DOCUSATE (SENOKOT S) TABLET PO SCH ×2 (08:02→20:46)
--- NOTE | 2021-01-03 08:39 | Podiatry Progress Note ---
Standard Progress Note Progress Notes/Assess & Plan Date Seen by a Provider: Jan 03, 2021 Time Seen by a Provider: 08:32 Progress/Assessment & Plan There is less erythema and edema to the right hallux and less pain with palpation. There is no open wound, right. There is edema noted to the foot bilaterally. There is no pain with palpation to the left foot, no pain with motion of the ankle, subtalar, midtarsal, tarso metatarsal, or metatarsophalangeal joints. No pain to the intermetatarsal spaces left foot. Dx: Gout right hallux Edema Plan: Recommend the use of more clear liquid and less 'pop". Retest Uric Acid levels. Recommend the follow up with chronometer assembler upon discharge. Final Diagnosis Gout, edema HAIR COLON DPM Jan 03, 2021 08:39
--- NOTE | 2021-01-03 10:16 | PM&R Progress Note ---
Subjective HPI/CC On Admission Date Seen by Provider: Jan 03, 2021 Time Seen by Provider: 10:30 Subjective/Events-last exam 01/03/21: Uric acid ordered by Dr Rob Toe is better Decubitus ulcer is improved No pain otherwise Severe dyspnea when active but he seems to not be bothered about it 01/02/21: Left foot pain occurred last night Right great toe improved since Indocin BM+ NHP at DC 01/01/21: Pt was slightly hypotensive today but cardiology is managing Indocin is helping the gout in his foot Bowels are moving 3.5 liters maintained DC planned for 01/08/21 to [place] 12/31/20: Dr. Rob diagnosed gout so Indocin was started Remains on 3.5 liters of O2 Scared to not use the sit to stand 12/30/20: Bowels moved yesterday Doing pretty well Right great toe pain so consulted Dr. Rob Uric acid will be added and X-ray of the right foot 12/29/20: Patient frustrated BM yesterday Sputum produced and sent down to lab? Sugar 196 No pain meds required today 12/28/20: Alevan on his buttock Coughed up some green sputum 3 times yesterday but lungs are clear BM large today Oxycodone for his left foot pain helped 2+ edema Sugar 167 He is very pessimistic about his overall progress which cannot be redirected 12/27/20: Transferring without the site to stand now Improved overall BM+ Alevan vs. butt paste on buttock He sits in chair all day long on computer 12/26/20: Insurance declined skilled for now Standing and actually progressing well 2L/min and doing well DC scheduled APAP TID 12/25/20: Awaiting chcf placement Actually working pretty well with therapy Denies any significant new pain Blurry vision still continues Didnt sleep real well last night 12/24/20: Eyes were better but the more he works on the computer the blurry issues return DC is on hold due to NH processes 12/23/20: Pt doing pretty well Buttock decubitus ulcer needs further treatment Discharge planned for tomorrow Hemaglobin 9.3 Midline will be discontinued at his request 12/22/20: Home O2 evaluation tomorrow for DC Wednesday DM education will be provided DC planned for NH 12/21/20: Doing well Slept well BM today Edema improved on KRIS's Decubitus ulcers worsened due to sitting in chair all day long IS use increased 12/20/20: Now has daily complaints about minor things since he was notified last week he would need a [place] Nurse broke his grabber so will obtain replacement for him Butt paste placed on buttocks Stage 2 No other issues 12/19/20: No major issues Bowels are moving [facility] placement on Wednesday12/18/20: Discharge Wednesday to the chcf Family training did not go well Son was there but did not engage Insists on going home but that would not be a possibility Placing Alevin on buttock 12/17/20: Family training today at 10:00 Still has a stage 2 buttock decubitus ulcer Overall feels like he is doing much better Son at bedside when I rounded later today and he was evaluating his progress 12/16/20: Pt doing pretty well Bowels moved today Left midline is functioning Blood sugar 147 Stage 2 decubitus ulcer on the buttock Working really hard to stand 12/15/20: Overall doing well No issues BM+ No falls 12/14/20: Doing well BM+ Dyspnea still continues No pain 12/13/20: Patient more alert today and energized No pain reported Oxycodone helps the foot pain Participating with therapy 12/12/20: Pt doing a lot better Having a lot of pain, takes Oxycodone for his foot and leg pain Bowels are moving Sleeping better Pt very well could require a chcf since he lives alone and is just not progressing well 12/11/20: No major issues Pretty much has plateaued and not made much progress with ambulation Epistaxis of the left nostril Nasal sprays will be continued Re-check and check with insurance coverage but he very well may need to be in a chcf 12/10/20: Pt doing pretty well Slept on and off last night Remains on 4 liters of O2 Swelling in his feel is pretty minimal Did not use his BiPAP last night and that likely is the cause of not sleeping well 12/09/20: Pt slept pretty well Bowels are moving PLTs are 97, 000 Normal WBC down from 21 when he first arrived Denies any significant issues Trying to get strong enough to walk 12/08/20: Slept well last night Remeron and Melatonin has helped him a lot Sinus tachy last night BM 12/06/20 so laxatives given No other issues 12/07/20: Slept better Yonker provided for phlem HR 60 Appreciate Cardiology 4L/min O2 BM 12/06/20 12/06/20: HR 122 Cardiology consulted Sugar 54 so decreasing insulin BM++ No pain reported No sleeping well so added hypnotics of Melatonin and Remeron 12/05/20: Patient doing well Worn out from fatigue Sugars are ok No pain reported Tachycardic so consulting Dr Carranza Midline was accidently pulled out so need a new one placed Checked meds and labs Review of Systems General: Fatigue, Malaise Pulmonary: Dyspnea Neurological: Weakness Objective Exam Vital Signs Vital Signs Date Time Temp Pulse Resp B/P (MAP) Pulse Ox O2 Delivery O2 Flow Rate FiO2 01/03/21 20:42 104 104/59 (74) 01/03/21 20:13 Nasal Cannula 3.50 01/03/21 18:31 95 01/03/21 17:05 36.4 18 Capillary Refill : General Appearance: No Apparent Distress, WD/WN, Anxious, Chronically ill, Obese HEENT: PERRL/EOMI, Normal ENT Inspection, Pharynx Normal Neck: Full Range of Motion, Normal Inspection, Non Tender, Supple, Carotid Bruit Respiratory: Chest Non Tender, Lungs Clear, No Accessory Muscle Use, No R espiratory Distress, Decreased Breath Sounds Cardiovascular: Regular Rate, Rhythm, No Gallop, No JVD, No Murmur, Normal Peripheral Pulses Gastrointestinal: Normal Bowel Sounds, No Organomegaly, No Pulsatile Mass, Non Tender, Soft Back: Normal Inspection, No CVA Tenderness, No Vertebral Tenderness Extremity: Normal Capillary Refill, Normal Inspection, Normal Range of Motion, Non Tender, No Calf Tenderness, Pedal Edema Neurologic/Psychiatric: Alert, Oriented x3, No Motor/Sensory Deficits, autocad draftsman II- XII Norm as Tested, Depressed Affect, Motor Weakness Skin: Normal Color, Warm/Dry Lymphatic: No Adenopathy Results/Procedures Lab Patient resulted labs reviewed. FIM Transfers Therapy Code Descriptions/Definitions Functional [place] Measure: 0=Not Assessed/NA 4=Minimal Assistance 1=Total Assistance 5=Supervision or Setup 2=Maximal Assistance 6=Modified [place] 3=Moderate Assistance 7=Complete IndependenceSCALE: Activities may be completed with or without assistive devices. 5-Imtfgeozwc-eeevwdf completes the activity by him/herself with no assistance from a helper. 5-Set-up or Clean-up Assistance-helper sets up or cleans up; patient completes activity. [place] assists only prior to or following the activity. 4-Supervision or Touching Assistance-helper provides verbal cues and/or touching/steadying and/or contact guard assistance as patient completes activity. Assistance may be provided throughout the activity or intermittently. 3-Partial/Moderate Assistance-helper does LESS THAN HALF the effort. [place] lifts, holds or supports trunk or limbs, but provides less than half the effort. 2-Substantial/Maximal Assistance-helper does MORE THAN HALF the effort. [place] lifts or holds trunk or limbs and provides more than half the effort. 2-Qpeznfnej-xenjwy does ALL the effort. Patient does none of the effort to complete the activity. Or, the assistance of 2 or more helpers is required for the patient to complete the activity. If activity was not attempted, code reason: 7-Patient Refused. 9-Not Applicable-not attempted and the patient did not perform the activity before the current illness, exacerbation or injury. 10-Not Attempted due to Environmental Limitations-(lack of equipment, weather restraints, etc.). 88-Not Attempted due to Medical Conditions or Safety Concerns. Roll Left to Right (QC): 5 Sit to Lying (QC): 6 Sit to Stand (QC): 3 Chair/Xvz-tk-Jxmho Xfer(QC): 4 Car Transfer (QC): 1 Gait Training Does the Patient Walk?: Yes Distance: 20'x3 Walk 10 feet (QC): 4 Walk 50 ft with 2 Turns(QC): 88 Walk 150 ft (QC): 88 Walking 10ft/uneven surface-QC: 3 Gait Persons Needed: 1 Gait Assistive Device: FWW Wheelchair Training Does the Pt Use a Wheelchair?: Yes Wheel 50 ft with 2 turns (QC): 4 Wheel 150 ft (QC): 4 Type of Wheelchair: Manual Stair Training #of Steps: 1 1 Step (curb) (QC): 2 4 Steps (QC): 88 12 Steps (QC): 88 Stairs: Pattern: Step to Balance Picking up an Object (QC): 88 ADL-Treatment Eating (QC): 6 Oral Hygiene (QC): 6 Bathing Location: L Arm, R Arm, L Upper Leg, R Upper Leg, Chest, Abdomen, Perineal Area Shower/Bathe Self (QC): 1 (Pt. is able to wash self seated on shower chair. However, requires max assist to field trainer shower, and max assist of another person to cleanse rear yo area.) Upper Body Dressing (QC): 4 Lower Body Dressing (QC): 2 On/Off Footwear (QC): 3 (Min assist to don shoes.) Toileting Hygiene (QC): 1 (Pt. had been incontinent of bowel in shorts. 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 Obesity DM Neuropathy Anemia O2 dependence Right great toe pain consulted Dr Rob 12/30/20 dx with gout and placed on Ind ocin Plan: IRF protocol Monitor O2 O2 supplement 12/05/20: O2 maintained IRF protocol Cardiology consultation appreciated Midline replacement 12/06/20: Cardiology consult appreciated Decrease insulin Midline Monitor closely 12/07/20: Monitor closely O2 wean Increase acitivity Maintain Remeron and Melatonin 12/08/20: Monitor closely Check labs in am Monitor tachycardia Remeron and Melatonin 12/09/20: Labs normal Improved strength Weaning O2 Monitor insomnia Increase insulin 12/10/20: Monitor O2 Increase strength Severe myopathy of legs 12/11/20: Difficult to progress Continue therapy May need NHP 12/12/20: Pain control with Oxycodone Monitor bowels Monitor O2 12/13/20: Monitor pain Wean O2 CPAP mask seems to be working better 12/14/20: Improved status Stood up today with help O2 12/15/20: Wean O2 Monitor ambulation CPAP at night 12/16/20: Monitor progress Decubitus ulcer management Monitor BP 12/17/20: Family education/training today Monitor O2 CPAP with O2 12/18/20: Monitor O2 NH Wednesday Continue to work on stamina 12/19/20: Monitor O2 CPAP 12/20/20: Decubitus ulcer management Monitor O2 Replace grabber 12/21/20: Monitor O2 KRIS CPAP 12/22/20: DC Wednesday to [place] Home O2 evaluation 12/23/20: DC midline DC tomorrow to [place] Needs eye exam soon for blurry vision 12/24/20: DC on hold Monitor O2 12/25/20: Continue therapy Making significant progress 12/26/20: Monitor progress Standing now May be able to DC home? 12/27/20: Much improved status Improved standing No pain reported 12/28/20: Walked a bit but he gets discouraged so quickly Pain controlled in his foot Monitor cough 12/29/20: Started scheduled insulin AC Adjusted Levemir to 10 units HS since sugars are low in am and maintained Levemir 20 units at bfast Check labs in am 12/30/20: Right great toe pain eval by Dr Rob Check uric acid and xray Monitor sugar 12/31/20: Indocin for gout Monitor closely Pain control 01/01/21: Gout treatment Monitor closely Pain control IRF protocol 01/02/21: O2 Gout treatment Monitor dyspnea 01/03/21: Gout treatment Monitor O2 and dyspnea (1) COVID-19 (2) RICHY on CPAP (3) Obesity (4) Diabetes (5) Hypertension (6) Edema (7) Neuropathy (8) Anemia (9) Advanced age (10) Gout DEANNA BOO DO Jan 03, 2021 10:16
--- NOTE | 2021-01-03 11:00 | Physical Therapy Daily Note ---
PT Daily Note-Current Subjective Patient in WC pre tx, agrees to PT, has no complaints of pain, will be co- treating with OT due to poor patient mobility, strength, endurance, SOB with activity, coordinate UE and LE with activity, safety and reduce risk of falls. Appearance Patient in at bedside post tx with nurse call, phone, tray, all needs met. Mental Status Patient Orientation: Person, Place, Situation Attachments: Oxygen Transfers SCALE: Activities may be completed with or without assistive devices. 4-Pdmesnfxvs-pmthawc completes the activity by him/herself with no assistance from a helper. 5-Set-up or Clean-up Assistance-helper sets up or cleans up; patient completes activity. [place] assists only prior to or following the activity. 4-Supervision or Touching Assistance-helper provides verbal cues and/or touching/steadying and/or contact guard assistance as patient completes activity. Assistance may be provided throughout the activity or intermittently. 3-Partial/Moderate Assistance-helper does LESS THAN HALF the effort. [place] lifts, holds or supports trunk or limbs, but provides less than half the effort. 2-Substantial/Maximal Assistance-helper does MORE THAN HALF the effort. [place] lifts or holds trunk or limbs and provides more than half the effort. 1-Kliaeahax-nstdnx does ALL the effort. Patient does none of the effort to complete the activity. Or, the assistance of 2 or more helpers is required for the patient to complete the activity. If activity was not attempted, code reason: 7-Patient Refused. 9-Not Applicable-not attempted and the patient did not perform the activity before the current illness, exacerbation or injury. 10-Not Attempted due to Environmental Limitations-(lack of equipment, weather restraints, etc.). 88-Not Attempted due to Medical Conditions or Safety Concerns. Sit to Stand (QC): 3 Chair/Dpj-xw-Nocqa Xfer(QC): 3 practiced stand pivot transfer x4, needs mod assist to stand from Weight Bearing Full Weight Bearing Full Weight Bearing Gait Training Distance: 25'x3 Walk 10 feet (QC): 4 Gait Assistive Device: FWW follow, short steps, very little foot clearance, very SOB after ambulation Wheelchair Training Does the Pt Use a Wheelchair?: Yes Wheel 50 ft with 2 turns (QC): 4 Type of Wheelchair: Manual Exercises standing in parallel bars x5 performing practice ADL's with one or no hand holding onto parallel bars Treatments PT performed transfers, ambulation, standing balance, OT performed ADL's, UE positioning and safety during activity Assessment Current Status: Fair Progress slowly improving functional mobility PT Short Term Goals Short Term Goals Time Frame: Dec 11, 2020 Roll Left & Right: 4 (met) Sit to lyin (met) Lying to sitting on side of be: 4 (met) Sit to stand: 3 Chair/uyl-ks-hzapy transfer: 3 Walk 10 feet: 3 Walk 50 feet with two turns: 3 PT Longterm Goals Firefighter Type One Goals PT Firefighter Type One Goals Time Frame: Jan 01, 2021 Roll Left & Right (QC): 6 Sit to Lying (QC): 6 Lying-Sitting on Side/Bed(QC): 6 Sit to Stand (QC): 6 Chair/Fua-uz-Ccaho Xfer(QC): 6 Toilet Transfer (QC): 6 Car Transfer (QC): 6 Does the Patient Walk: No and Walking Goal IS indicated Walk 10 feet (QC): 6 Walk 50ft with 2 Turns (QC): 6 Walk 150 ft (QC): 6 Walking 10ft on Uneven Surface: 4 1 Step (curb) (QC): 4 4 Steps (QC): 4 12 Steps (QC): 4 Picking up an Object (QC): 5 Does the Pt use WC or Scooter?: No Wheel 50 feet with 2 turns (QC: 9 Wheel 150 feet: 9 PT Plan Problem List Problem List: Activity Tolerance, Functional Strength, Safety, Balance, Gait, Transfer, Bed Mobility, ROM Treatment/Plan Treatment Plan: Continue Plan of Care Treatment Plan: Bed Mobility, Education, Functional Activity Erick, Functional Strength, Group Therapy, Gait, Safety, Therapeutic Exercise, Transfers Treatment Duration: Jan 01, 2021 Frequency: At least 5 of 7 days/Wk (IRF) Estimated Hrs Per Day: Other (see notation) Patient and/or Family Agrees t: Yes Safety Risks/Education Patient Education: Gait Training, Transfer Techniques, Correct Positioning, W/C Management, Safety Issues Teaching Recipient: Patient Teaching Methods: Demonstration, Discussion Response to Teaching: Reinforcement Needed Time/GCodes Time In: 1000 Time Out: 1100 Total Billed Treatment Time: 60 Total Billed Treatment 1 visit FA 30' EX 30' JENSEN AMBRIZ PT Jan 03, 2021 11:00
--- NOTE | 2021-01-03 11:10 | Occupational Ther Daily Note ---
OT Current Status-Daily Note Subjective [id number]: OT/ PT co-treat. OT addresses UE strength, ADLs and problem solving, PT addresses LE strength, transfers, and mobility. Pt AxO. No pain. Agrees to tx. Pt seen [id number]: Pt AxO, no pain, agrees to tx. Mental Status/Objective Patient Orientation: Normal For Age Attachments: Oxygen (3.5 L) ADL-Treatment Therapy Code Descriptions/Definitions Functional [place] Measure: 0=Not Assessed/NA 4=Minimal Assistance 1=Total Assistance 5=Supervision or Setup 2=Maximal Assistance 6=Modified [place] 3=Moderate Assistance 7=Complete IndependenceSCALE: Activities may be completed with or without assistive devices. 6-Lclolblynz-zotbqrq completes the activity by him/herself with no assistance from a helper. 5-Set-up or Clean-up Assistance-helper sets up or cleans up; patient completes activity. [place] assists only prior to or following the activity. 4-Supervision or Touching Assistance-helper provides verbal cues and/or touching/steadying and/or contact guard assistance as patient completes activity. Assistance may be provided throughout the activity or intermittently. 3-Partial/Moderate Assistance-helper does LESS THAN HALF the effort. [place] lifts, holds or supports trunk or limbs, but provides less than half the effort. 2-Substantial/Maximal Assistance-helper does MORE THAN HALF the effort. [place] lifts or holds trunk or limbs and provides more than half the effort. 7-Ddrgxsvgj-bnspsp does ALL the effort. Patient does none of the effort to complete the activity. Or, the assistance of 2 or more helpers is required for the patient to complete the activity. If activity was not attempted, code reason: 7-Patient Refused. 9-Not Applicable-not attempted and the patient did not perform the activity before the current illness, exacerbation or injury. 10-Not Attempted due to Environmental Limitations-(lack of equipment, weather restraints, etc.). 88-Not Attempted due to Medical Conditions or Safety Concerns. Eating (QC): 6 Oral Hygiene (QC): 6 Shower/Bathe Self (QC): 7 (denies, stating he completed himself this am with assist for bottom hygiene. When asking about LE/ foot hygiene, pt states utilized LHS) Upper Body Dressing (QC): 5 (Pt states completed with IND (s/u)) On/Off Footwear: 6 (IND shoes.) Other Treatment Pt expresses already sponge bathed/ dressed with nursing assist. Denies showering. Pt completes w/c mob to gym. Pt completes ambulation 3x with assist from OT/ PT for sit to stand, OT follows with w/c. Pt stands at // bars to complete LB faux dressing. With use of theraband, pt completes one hand doffing from bars and pulls over hips with CGA. Pt doffs with CGA. Pt requires rest break in between. Pt completes this 4x, then 2x with use of walker rather than // bars. Pt educated on safety, use of BSC and grab bars during this at home. Pt agrees, as only has standard toilet at home. Pt completes 4 SPT with assist for sit to stands, though CGA for SPT. Pt returns to room, all needs met, call light in reach. Pt completes 2 sit to stands with minAx2. Completes minimal doffing of BUEs from walker with fair control 2x for ~15-30 sec each time. Pt completes UE theraband ex (modified due to LUE shoulder restrictions): 15 reps of the following: shoulder flexion, shoulder horizontal abduction, and back flies. Pt in w/c end of session, all needs met. Education OT Patient Education: Correct positioning, Exercise program, Home exercise program, Modified ADL techniques, Progress toward Goal/Update tx plan, Purpose of tx/functional activities, Safety issues, Transfer techniques Teaching Recipient: Patient Teaching Methods: Demonstration, Discussion Response to Teaching: Verbalize Understanding, Return Demonstration, Reinforcement Needed OT Short Term Goals Short Term Goals Time Frame: Dec 11, 2020 Eatin Oral hygiene: 88 Toileting hygiene: 2 Shower/bathe self: 3 Upper body dressin Lower body dressin Putting on/taking off footwear: 6 OT Waste Disposal Plant Operator Goals Waste Disposal Plant Operator Goals Time Frame: Dec 25, 2020 Eating (QC): 6 Oral Hygiene (QC): 6 Toileting Hygiene (QC): 5 Shower/Bathe Self (QC): 5 Upper Body Dressing (QC): 6 Lower Body Dressing (QC): 4 On/Off Footwear (QC): 6 Additional Goals: 1-Demonstrate ADL Tasks, 2-Verbalize Understanding, 3- ImproveStrength/Erick 1=Demonstrate adherence to instructed precautions during ADL tasks. 2=Patient will verbalize/demonstrate understanding of assistive devices/modifications for ADL. 3=Patient will improve strength/tolerance for activity to enable patient to perform ADL's. OT Education/Plan Problem List/Assessment Assessment: Decreased Activ Tolerance, Decreased UE Strength, Dependent Transfers, Edema, Impaired Funct Balance, Impaired I ADL's, Impaired Self-Care Skills Discharge Recommendations Plan/Recommendations: Continue POC Therapy Discharge Recommendati: Post Acute OT Equpiment Recommendations-D/C: Toilet Riser with Rails Treatment Plan/Plan of Care Treatment,Training & Education: Yes Patient would benefit from OT for education, treatment and training to promote independence in ADL's, mobility, safety and/or upper extremity function for ADL' s. Plan of Care: ADL Retraining, Caregiver Training, Functional Mobility, Group Exercise/Act as Ind, UE Funct Exercise/Act Treatment Duration: Dec 25, 2020 Frequency: Modified Program (IRF) Estimated Hrs Per Day: 1.5 hours per day Agreement: Yes Rehab Potential: Fair Time/GCodes Start Time: 10:00 (1315) Stop Time: 11:00 (1330) Total Time Billed (hr/min): 75 (60+15) Billed Treatment Time 1, EX 4 (60) 1, EX (15) CHAPARRO GOLDEN OTR Jan 03, 2021 11:10
--- NOTE | 2021-01-03 13:45 | Physical Therapy Daily Note ---
PT Daily Note-Current Subjective Patient in WC at bedside pre tx, agrees to PT, has no complaints of pain. Appearance Patient in WC at bedside post tx with nurse call, phone, tray, all needs met. Mental Status Patient Orientation: Person, Place, Situation Attachments: Oxygen Transfers SCALE: Activities may be completed with or without assistive devices. 0-Rwerkxzpwm-seonihw completes the activity by him/herself with no assistance from a helper. 5-Set-up or Clean-up Assistance-helper sets up or cleans up; patient completes activity. [place] assists only prior to or following the activity. 4-Supervision or Touching Assistance-helper provides verbal cues and/or touching/steadying and/or contact guard assistance as patient completes activit y. Assistance may be provided throughout the activity or intermittently. 3-Partial/Moderate Assistance-helper does LESS THAN HALF the effort. [place] lifts, holds or supports trunk or limbs, but provides less than half the effort. 2-Substantial/Maximal Assistance-helper does MORE THAN HALF the effort. [place] lifts or holds trunk or limbs and provides more than half the effort. 5-Mwfmobweo-snpleo does ALL the effort. Patient does none of the effort to complete the activity. Or, the assistance of 2 or more helpers is required for the patient to complete the activity. If activity was not attempted, code reason: 7-Patient Refused. 9-Not Applicable-not attempted and the patient did not perform the activity before the current illness, exacerbation or injury. 10-Not Attempted due to Environmental Limitations-(lack of equipment, weather restraints, etc.). 88-Not Attempted due to Medical Conditions or Safety Concerns. Weight Bearing Full Weight Bearing Full Weight Bearing Exercises Seated Therapy Exercises: Ankle pumps, Long arc quads, Hip flexion Seated Reps: 20 (3 sets) Treatments LE exercise Assessment Current Status: Fair Progress slowly improving LE strength and functional mobility PT Short Term Goals Short Term Goals Time Frame: Dec 11, 2020 Roll Left & Right: 4 (met) Sit to lyin (met) Lying to sitting on side of be: 4 (met) Sit to stand: 3 Chair/vca-nk-hpnzc transfer: 3 Walk 10 feet: 3 Walk 50 feet with two turns: 3 PT Custodial Goals [employer] Firer Goals PT Custodial Goals Time Frame: Jan 01, 2021 Roll Left & Right (QC): 6 Sit to Lying (QC): 6 Lying-Sitting on Side/Bed(QC): 6 Sit to Stand (QC): 6 Chair/Trz-qe-Bxbte Xfer(QC): 6 Toilet Transfer (QC): 6 Car Transfer (QC): 6 Does the Patient Walk: No and Walking Goal IS indicated Walk 10 feet (QC): 6 Walk 50ft with 2 Turns (QC): 6 Walk 150 ft (QC): 6 Walking 10ft on Uneven Surface: 4 1 Step (curb) (QC): 4 4 Steps (QC): 4 12 Steps (QC): 4 Picking up an Object (QC): 5 Does the Pt use WC or Scooter?: No Wheel 50 feet with 2 turns (QC: 9 Wheel 150 feet: 9 PT Plan Problem List Problem List: Activity Tolerance, Functional Strength, Safety, Balance, Gait, Transfer, Bed Mobility, ROM Treatment/Plan Treatment Plan: Continue Plan of Care Treatment Plan: Bed Mobility, Education, Functional Activity Erick, Functional Strength, Group Therapy, Gait, Safety, Therapeutic Exercise, Transfers Treatment Duration: Jan 01, 2021 Frequency: At least 5 of 7 days/Wk (IRF) Estimated Hrs Per Day: Other (see notation) Patient and/or Family Agrees t: Yes Safety Risks/Education Patient Education: Correct Positioning, Safety Issues Teaching Recipient: Patient Teaching Methods: Demonstration, Discussion Response to Teaching: Reinforcement Needed Time/GCodes Time In: 1330 Time Out: 1345 Total Billed Treatment Time: 15 Total Billed Treatment 1 visit EX 15' JENSEN AMBRIZ PT Jan 03, 2021 13:45
--- NOTE | 2021-01-03 16:42 | Progress Note - Cardiology ---
Cardiology SOAP Progress Note Subjective: No cp or palp or syncope Gen weakness and malaise No n/v/d Objective: I&O/Vital Signs 01/03/21 01/03/21 01/03/21 06:00 07:20 09:05 Temp 36.2 Pulse 68 Resp 17 B/P (MAP) 141/76 (97) Pulse Ox 92 95 O2 Delivery NIV CPAP Nasal Cannula Nasal Cannula O2 Flow Rate 4.00 3.00 3.50 01/03/21 00:00 Intake Total 1500 ml Output Total 1000 ml Balance 500 ml Constitutional: AAO x 3 Respiratory: chest is bilaterally symmetric, other (fair to good, bilateral air entry) Cardiovascular: irregularly irregular, S1 and S2, systolic murmur (soft YANET at card base) Gastrointestional: soft, audible bowel sounds Extremities: other (mild to mod, bilateral leg edema) Neurologic/Psychiatric: no motor/sensory deficits, oriented x 3, other (moves all limbs equally) Results/Procedures: Labs Laboratory Tests 01/02/21 20:05: Glucometer 178H 01/03/21 04:58: Glucometer 120H 01/03/21 09:00: Uric Acid 9.0H 01/03/21 11:00: Glucometer 90 01/03/21 16:11: Glucometer 167H A/P: Assessment: Low blood pressure on 01/01/20, now improved after reduction in meds Atrial fibrillation with controlled ventricular rate Critical illness myopathy, 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
[2021-01-03 17:05] VITALS: BP 105/63
[2021-01-03 20:42] VITALS: BP 104/59
[2021-01-03] MEDS: ACETAMINOPHEN 325 MG TABLET PO PRN (20:44)
[2021-01-03] MEDS: MIRTAZAPINE 15 MG (REMERON) TAB PO SCH (20:45)
[2021-01-03] MEDS: MELATONIN 3 MG TABLET PO SCH (20:45)
[2021-01-04 05:16] VITALS: BP 124/58
[2021-01-04] MEDS: inSUlin ASPART (NovoLOG) 1 UNIT/0.01 ML (CHARGE PER UNIT) SC SCH ×7 (05:49→20:17)
[2021-01-04] MEDS: ADVAIR HFA 115/21 MCG INHALER 8 GM IH SCH ×2 (07:31→18:33)
[2021-01-04] MEDS: UMECLIDINIUM BROMIDE (INCRUSE ELLIPTA) 7'S IH SCH (07:31)
[2021-01-04] MEDS: VITAMIN D3 25 MCG (1,000 UNITS) TABLET PO SCH (08:14)
[2021-01-04] MEDS: GABAPENTIN 100 MG (NEURONTIN) CAP PO SCH ×3 (08:14→20:14)
[2021-01-04] MEDS: PANTOPRAZOLE 40 MG (PROTONIX) TAB PO SCH (08:14)
[2021-01-04] MEDS: TAMSULOSIN 0.4 MG (FLOMAX) CAP PO SCH (08:14)
[2021-01-04] MEDS: ASPIRIN 81 MG CHEW (CHILDREN'S ASA) PO SCH (08:14)
[2021-01-04] MEDS: ASCORBIC ACID (VIT C) 500 MG TABLET PO SCH ×2 (08:14→17:00)
[2021-01-04] MEDS: APIXABAN 5 MG (ELIQUIS) TABLET PO SCH ×2 (08:14→20:14)
[2021-01-04] MEDS: FINASTERIDE (PROSCAR) 5 MG TAB PO SCH (08:14)
[2021-01-04] MEDS: INDOMETHACIN 25 MG (INDOCIN) CAP PO SCH ×2 (08:15→17:00)
[2021-01-04] MEDS: DOCUSATE SODIUM 100 MG (COLACE) CAP PO SCH ×2 (08:16→20:14)
[2021-01-04] MEDS: SENNA W/DOCUSATE (SENOKOT S) TABLET PO SCH ×2 (08:16→20:15)
[2021-01-04] MEDS: FLUTICASONE NASAL SPRAY (FLONASE) 16 GM BTL NS SCH (08:16)
[2021-01-04] MEDS: polyethylene glycoL POWDER 17 GM (MIRALAX) PACK PO SCH ×2 (08:16→20:15)
[2021-01-04] MEDS: SALIVA STIMULANT MOUTH SPRAY (BIOTENE) 1.5 OZ MM SCH ×4 (08:17→20:14)
[2021-01-04 08:18] VITALS: BP 102/59
[2021-01-04] MEDS: meTOprolol TARTRATE 25 MG (LOPRESSOR) TABLET PO SCH ×2 (09:47→20:14)
[2021-01-04] MEDS: SALINE NASAL SPRAY (OCEAN) 45 ML BTL NS SCH ×3 (09:47→20:14)
[2021-01-04 09:48] VITALS: BP 110/67
--- NOTE | 2021-01-04 10:13 | Physical Therapy Daily Note ---
PT Daily Note-Current Subjective Pt. asleep in w/c but agrees to Rx when awakened. Pain Location: No Pain Reported Mental Status Attachments: Oxygen Transfers SCALE: Activities may be completed with or without assistive devices. 2-Nvvvkdlqih-vbohdpp completes the activity by him/herself with no assistance from a helper. 5-Set-up or Clean-up Assistance-helper sets up or cleans up; patient completes activity. [place] assists only prior to or following the activity. 4-Supervision or Touching Assistance-helper provides verbal cues and/or touching/steadying and/or contact guard assistance as patient completes ac tivity. Assistance may be provided throughout the activity or intermittently. 3-Partial/Moderate Assistance-helper does LESS THAN HALF the effort. [place] lifts, holds or supports trunk or limbs, but provides less than half the effort. 2-Substantial/Maximal Assistance-helper does MORE THAN HALF the effort. [place] lifts or holds trunk or limbs and provides more than half the effort. 0-Jaunjwrrx-adlhjb does ALL the effort. Patient does none of the effort to complete the activity. Or, the assistance of 2 or more helpers is required for the patient to complete the activity. If activity was not attempted, code reason: 7-Patient Refused. 9-Not Applicable-not attempted and the patient did not perform the activity before the current illness, exacerbation or injury. 10-Not Attempted due to Environmental Limitations-(lack of equipment, weather restraints, etc.). 88-Not Attempted due to Medical Conditions or Safety Concerns. sit to stand x 6 from w/c level with large cushion for height, stood with min to mod assist x6, wt shift left to right and 3-4 small steps for and back with FWW min assist. Pt. c/o fatigue and rested . Weight Bearing Full Weight Bearing Full Weight Bearing Exercises Seated Therapy Exercises: Ankle pumps, Sit to stand, Long arc quads, Hip flexion Seated Reps: 10 Assessment Current Status: Good Progress PT Short Term Goals Short Term Goals Time Frame: Dec 11, 2020 Roll Left & Right: 4 (met) Sit to lyin (met) Lying to sitting on side of be: 4 (met) Sit to stand: 3 Chair/jus-qw-wjvbo transfer: 3 Walk 10 feet: 3 Walk 50 feet with two turns: 3 PT Chcf Goals Chcf Goals PT Chcf Goals Time Frame: Jan 01, 2021 Roll Left & Right (QC): 6 Sit to Lying (QC): 6 Lying-Sitting on Side/Bed(QC): 6 Sit to Stand (QC): 6 Chair/Xsb-gt-Xsbjm Xfer(QC): 6 Toilet Transfer (QC): 6 Car Transfer (QC): 6 Does the Patient Walk: No and Walking Goal IS indicated Walk 10 feet (QC): 6 Walk 50ft with 2 Turns (QC): 6 Walk 150 ft (QC): 6 Walking 10ft on Uneven Surface: 4 1 Step (curb) (QC): 4 4 Steps (QC): 4 12 Steps (QC): 4 Picking up an Object (QC): 5 Does the Pt use WC or Scooter?: No Wheel 50 feet with 2 turns (QC: 9 Wheel 150 feet: 9 PT Plan Treatment/Plan Treatment Plan: Continue Plan of Care Treatment Plan: Bed Mobility, Education, Functional Activity Erick, Functional Strength, Group Therapy, Gait, Safety, Therapeutic Exercise, Transfers Treatment Duration: Jan 01, 2021 Frequency: At least 5 of 7 days/Wk (IRF) Estimated Hrs Per Day: Other (see notation) Patient and/or Family Agrees t: Yes Safety Risks/Education Patient Education: Transfer Techniques, Correct Positioning, Safety Issues Time/GCodes Time In: 925 Time Out: 945 Total Billed Treatment Time: 20 Total Billed Treatment 1,FA20m SUSANNA CONNER INTEGRATED CAMPAIGN MANAGER Jan 04, 2021 10:13
--- NOTE | 2021-01-04 11:47 | PM&R Progress Note ---
Subjective HPI/CC On Admission Date Seen by Provider: Jan 04, 2021 Time Seen by Provider: 12:00 Subjective/Events-last exam 01/04/21: Sugars improved 113 this am Foot pain improved Indocin taper maintained 01/03/21: Uric acid ordered by Dr Rob Toe is better Decubitus ulcer is improved No pain otherwise Severe dyspnea when active but he seems to not be bothered about it 01/02/21: Left foot pain occurred last night Right great toe improved since Indocin BM+ NHP at DC 01/01/21: Pt was slightly hypotensive today but cardiology is managing Indocin is helping the gout in his foot Bowels are moving 3.5 liters maintained DC planned for 01/08/21 to [place] 12/31/20: Dr. Rob diagnosed gout so Indocin was started Remains on 3.5 liters of O2 Scared to not use the sit to stand 12/30/20: Bowels moved yesterday Doing pretty well Right great toe pain so consulted Dr. Rob Uric acid will be added and X-ray of the right foot 12/29/20: Patient frustrated BM yesterday Sputum produced and sent down to lab? Sugar 196 No pain meds required today 12/28/20: Alevan on his buttock Coughed up some green sputum 3 times yesterday but lungs are clear BM large today Oxycodone for his left foot pain helped 2+ edema Sugar 167 He is very pessimistic about his overall progress which cannot be redirected 12/27/20: Transferring without the site to stand now Improved overall BM+ Alevan vs. butt paste on buttock He sits in chair all day long on computer 12/26/20: Insurance declined skilled for now Standing and actually progressing well 2L/min and doing well DC scheduled APAP TID 12/25/20: Awaiting mcc placement Actually working pretty well with therapy Denies any significant new pain Blurry vision still continues Didnt sleep real well last night 12/24/20: Eyes were better but the more he works on the computer the blurry issues return DC is on hold due to NH processes 12/23/20: Pt doing pretty well Buttock decubitus ulcer needs further treatment Discharge planned for tomorrow Hemaglobin 9.3 Midline will be discontinued at his request 12/22/20: Home O2 evaluation tomorrow for DC Wednesday DM education will be provided DC planned for [place] 12/21/20: Doing well Slept well BM today Edema improved on KRIS's Decubitus ulcers worsened due to sitting in chair all day long IS use increased 12/20/20: Now has daily complaints about minor things since he was notified last week he would need a [place] Nurse broke his grabber so will obtain replacement for him Butt paste placed on buttocks Stage 2 No other issues 12/19/20: No major issues Bowels are moving [facility] placement on Wednesday12/18/20: Discharge Wednesday to the [facility] Family training did not go well Son was there but did not engage Insists on going home but that would not be a possibility Placing Alevin on buttock 12/17/20: Family training today at 10:00 Still has a stage 2 buttock decubitus ulcer Overall feels like he is doing much better Son at bedside when I rounded later today and he was evaluating his progress 12/16/20: Pt doing pretty well Bowels moved today Left midline is functioning Blood sugar 147 Stage 2 decubitus ulcer on the buttock Working really hard to stand 12/15/20: Overall doing well No issues BM+ No falls 12/14/20: Doing well BM+ Dyspnea still continues No pain 12/13/20: Patient more alert today and energized No pain reported Oxycodone helps the foot pain Participating with therapy 12/12/20: Pt doing a lot better Having a lot of pain, takes Oxycodone for his foot and leg pain Bowels are moving Sleeping better Pt very well could require a mcc since he lives alone and is just not progressing well 12/11/20: No major issues Pretty much has plateaued and not made much progress with ambulation Epistaxis of the left nostril Nasal sprays will be continued Re-check and check with insurance coverage but he very well may need to be in a mcc 12/10/20: Pt doing pretty well Slept on and off last night Remains on 4 liters of O2 Swelling in his feel is pretty minimal Did not use his BiPAP last night and that likely is the cause of not sleeping well 12/09/20: Pt slept pretty well Bowels are moving PLTs are 97, 000 Normal WBC down from when he first arrived Denies any significant issues Trying to get strong enough to walk 12/08/20: Slept well last night Remeron and Melatonin has helped him a lot Sinus tachy last night BM 12/06/20 so laxatives given No other issues 12/07/20: Slept better Yonker provided for phlem HR 60 Appreciate Cardiology 4L/min O2 BM 12/06/20 12/06/20: HR 122 Cardiology consulted Sugar 54 so decreasing insulin BM++ No pain reported No sleeping well so added hypnotics of Melatonin and Remeron 12/05/20: Patient doing well Worn out from fatigue Sugars are ok No pain reported Tachycardic so consulting Dr Carranza Midline was accidently pulled out so need a new one placed Checked meds and labs Review of Systems General: Fatigue, Malaise Pulmonary: Dyspnea Neurological: Weakness Objective Exam Vital Signs Vital Signs Date Time Temp Pulse Resp B/P (MAP) Pulse Ox O2 Delivery O2 Flow Rate FiO2 01/05/21 05:20 36.0 73 18 101/58 (72) 94 NIV CPAP 4.00 Capillary Refill : General Appearance: No Apparent Distress, WD/WN, Anxious, Chronically ill, Obese HEENT: PERRL/EOMI, Normal ENT Inspection, Pharynx Normal Neck: Full Range of Motion, Normal Inspection, Non Tender, Supple, Carotid Bruit Respiratory: Chest Non Tender, Lungs Clear, No Accessory Muscle Use, No Respiratory Distress, Decreased Breath Sounds Cardiovascular: Regular Rate, Rhythm, No Gallop, No JVD, No Murmur, Normal Peripheral Pulses Gastrointestinal: Normal Bowel Sounds, No Organomegaly, No Pulsatile Mass, Non Tender, Soft Back: Normal Inspection, No CVA Tenderness, No Vertebral Tenderness Extremity: Normal Capillary Refill, Normal Inspection, Normal Range of Motion, Non Tender, No Calf Tenderness, Pedal Edema Neurologic/Psychiatric: Alert, Oriented x3, No Motor/Sensory Deficits, 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 FIM Transfers Therapy Code Descriptions/Definitions Functional [place] Measure: 0=Not Assessed/NA 4=Minimal Assistance 1=Total Assistance 5=Supervision or Setup 2=Maximal Assistance 6=Modified [place] 3=Moderate Assistance 7=Complete IndependenceSCALE: Activities may be completed with or without assistive devices. 6-Czjyxhighe-sfxrasw completes the activity by him/herself with no assistance from a helper. 5-Set-up or Clean-up Assistance-helper sets up or cleans up; patient completes activity. [place] assists only prior to or following the activity. 4-Supervision or Touching Assistance-helper provides verbal cues and/or touching/steadying and/or contact guard assistance as patient completes activity. Assistance may be provided throughout the activity or intermittently. 3-Partial/Moderate Assistance-helper does LESS THAN HALF the effort. [place] lifts, holds or supports trunk or limbs, but provides less than half the effort. 2-Substantial/Maximal Assistance-helper does MORE THAN HALF the effort. [place] lifts or holds trunk or limbs and provides more than half the effort. 0-Nbuqammux-lpatol does ALL the effort. Patient does none of the effort to complete the activity. Or, the assistance of 2 or more helpers is required for the patient to complete the activity. If activity was not attempted, code reason: 7-Patient Refused. 9-Not Applicable-not attempted and the patient did not perform the activity before the current illness, exacerbation or injury. 10-Not Attempted due to Environmental Limitations-(lack of equipment, weather restraints, etc.). 88-Not Attempted due to Medical Conditions or Safety Concerns. Roll Left to Right (QC): 5 Sit to Lying (QC): 6 Sit to Stand (QC): 3 Chair/Nwr-dg-Fadta Xfer(QC): 3 Car Transfer (QC): 1 Gait Training Does the Patient Walk?: Yes Distance: 25'x3 Walk 10 feet (QC): 4 Walk 50 ft with 2 Turns(QC): 88 Walk 150 ft (QC): 88 Walking 10ft/uneven surface-QC: 3 Gait Persons Needed: 1 Gait Assistive Device: FWW Wheelchair Training Does the Pt Use a Wheelchair?: Yes Wheel 50 ft with 2 turns (QC): 4 Wheel 150 ft (QC): 4 Type of Wheelchair: Manual Stair Training #of Steps: 1 1 Step (curb) (QC): 2 4 Steps (QC): 88 12 Steps (QC): 88 Stairs: Pattern: Step to Balance Picking up an Object (QC): 88 ADL-Treatment Eating (QC): 6 Oral Hygiene (QC): 6 Bathing Location: L Arm, R Arm, L Upper Leg, R Upper Leg, Chest, Abdomen, Perineal Area Shower/Bathe Self (QC): 7 (denies, stating he completed himself this am with assist for bottom hygiene. When asking about LE/ foot hygiene, pt states utilized LHS) Upper Body Dressing (QC): 5 (Pt states completed with IND (s/u)) Lower Body Dressing (QC): 2 On/Off Footwear (QC): 6 (IND shoes.) Toileting Hygiene (QC): 1 (Pt. had been incontinent of bowel in shorts. 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 Obesity DM Neuropathy Anemia O2 dependence Right great toe pain consulted Dr Rob 12/30/20 dx with gout and placed on Indocin Plan: IRF protocol Monitor O2 O2 supplement 12/05/20: O2 maintained IRF protocol Cardiology consultation appreciated Midline replacement 12/06/20: Cardiology consult appreciated Decrease insulin Midline Monitor closely 12/07/20: Monitor closely O2 wean Increase acitivity Maintain Remeron and Melatonin 12/08/20: Monitor closely Check labs in am Monitor tachycardia Remeron and Melatonin 12/09/20: Labs normal Improved strength Weaning O2 Monitor insomnia Increase insulin 12/10/20: Monitor O2 Increase strength Severe myopathy of legs 12/11/20: Difficult to progress Continue therapy May need NHP 12/12/20: Pain control with Oxycodone Monitor bowels Monitor O2 12/13/20: Monitor pain Wean O2 CPAP mask seems to be working better 12/14/20: Improved status Stood up today with help O2 12/15/20: Wean O2 Monitor ambulation CPAP at night 12/16/20: Monitor progress Decubitus ulcer management Monitor BP 12/17/20: Family education/training today Monitor O2 CPAP with O2 12/18/20: Monitor O2 NH Wednesday Continue to work on stamina 12/19/20: Monitor O2 CPAP 12/20/20: Decubitus ulcer management Monitor O2 Replace grabber 12/21/20: Monitor O2 KRIS CPAP 12/22/20: DC Wednesday to [place] Home O2 evaluation 12/23/20: DC midline DC tomorrow to [place] Needs eye exam soon for blurry vision 12/24/20: DC on hold Monitor O2 12/25/20: Continue therapy Making significant progress 12/26/20: Monitor progress Standing now May be able to DC home? 12/27/20: Much improved status Improved standing No pain reported 12/28/20: Walked a bit but he gets discouraged so quickly Pain controlled in his foot Monitor cough 12/29/20: Started scheduled insulin AC Adjusted Levemir to 10 units HS since sugars are low in am and maintained Levemir 20 units at bfast Check labs in am 12/30/20: Right great toe pain eval by Dr Rob Check uric acid and xray Monitor sugar 12/31/20: Indocin for gout Monitor closely Pain control 01/01/21: Gout treatment Monitor closely Pain control IRF protocol 01/02/21: O2 Gout treatment Monitor dyspnea 01/03/21: Gout treatment Monitor O2 and dyspnea 01/04/21: O2 wean Monitor foot pain Indocin taper (1) COVID-19 (2) RICHY on CPAP (3) Obesity (4) Diabetes (5) Hypertension (6) Edema (7) Neuropathy (8) Anemia (9) Advanced age (10) Gout DEANNA BOO DO Jan 04, 2021 11:47
[2021-01-04 16:18] VITALS: BP 112/59
[2021-01-04 20:12] VITALS: BP 114/74
[2021-01-04] MEDS: MIRTAZAPINE 15 MG (REMERON) TAB PO SCH (20:14)
[2021-01-04] MEDS: MELATONIN 3 MG TABLET PO SCH (20:14)
[2021-01-05 05:20] VITALS: BP 101/58
[2021-01-05] MEDS: inSUlin ASPART (NovoLOG) 1 UNIT/0.01 ML (CHARGE PER UNIT) SC SCH ×7 (05:39→20:01)
[2021-01-05] MEDS: SENNA W/DOCUSATE (SENOKOT S) TABLET PO SCH ×2 (07:59→20:17)
[2021-01-05] MEDS: polyethylene glycoL POWDER 17 GM (MIRALAX) PACK PO SCH ×2 (07:59→20:17)
[2021-01-05] MEDS: DOCUSATE SODIUM 100 MG (COLACE) CAP PO SCH ×2 (07:59→20:17)
[2021-01-05] MEDS: APIXABAN 5 MG (ELIQUIS) TABLET PO SCH ×2 (08:00→20:15)
[2021-01-05] MEDS: INDOMETHACIN 25 MG (INDOCIN) CAP PO SCH ×2 (08:00→17:21)
[2021-01-05] MEDS: ASPIRIN 81 MG CHEW (CHILDREN'S ASA) PO SCH (08:00)
[2021-01-05] MEDS: ASCORBIC ACID (VIT C) 500 MG TABLET PO SCH ×2 (08:00→17:21)
[2021-01-05] MEDS: VITAMIN D3 25 MCG (1,000 UNITS) TABLET PO SCH (08:00)
[2021-01-05] MEDS: GABAPENTIN 100 MG (NEURONTIN) CAP PO SCH ×2 (08:00→20:15)
[2021-01-05] MEDS: PANTOPRAZOLE 40 MG (PROTONIX) TAB PO SCH (08:00)
[2021-01-05] MEDS: FINASTERIDE (PROSCAR) 5 MG TAB PO SCH (08:00)
[2021-01-05] MEDS: TAMSULOSIN 0.4 MG (FLOMAX) CAP PO SCH (08:00)
[2021-01-05] MEDS: FLUTICASONE NASAL SPRAY (FLONASE) 16 GM BTL NS SCH (08:01)
[2021-01-05] MEDS: SALIVA STIMULANT MOUTH SPRAY (BIOTENE) 1.5 OZ MM SCH ×4 (08:02→20:16)
[2021-01-05] MEDS: SALINE NASAL SPRAY (OCEAN) 45 ML BTL NS SCH ×3 (08:02→20:16)
[2021-01-05] MEDS: ADVAIR HFA 115/21 MCG INHALER 8 GM IH SCH ×2 (09:07→18:15)
[2021-01-05] MEDS: UMECLIDINIUM BROMIDE (INCRUSE ELLIPTA) 7'S IH SCH (09:07)
[2021-01-05 09:55] VITALS: BP 100/59
[2021-01-05] MEDS: meTOprolol TARTRATE 25 MG (LOPRESSOR) TABLET PO SCH ×2 (09:55→20:16)
--- NOTE | 2021-01-05 11:41 | PM&R Progress Note ---
Subjective HPI/CC On Admission Date Seen by Provider: Jan 05, 2021 Time Seen by Provider: 11:45 Subjective/Events-last exam 01/05/21: Complains about sleeping all the time Changed Gabapentin to BID instead of TID Large BM daily Mildly low BP noted Tremor reported to RN but not discussed with me 01/04/21: Sugars improved 113 this am Foot pain improved Indocin taper maintained 01/03/21: Uric acid ordered by Dr Rob Toe is better Decubitus ulcer is improved No pain otherwise Severe dyspnea when active but he seems to not be bothered about it 01/02/21: Left foot pain occurred last night Right great toe improved since Indocin BM+ NHP at DC 01/01/21: Pt was slightly hypotensive today but cardiology is managing Indocin is helping the gout in his foot Bowels are moving 3.5 liters maintained DC planned for 01/08/21 to [place] 12/31/20: Dr. Rob diagnosed gout so Indocin was started Remains on 3.5 liters of O2 Scared to not use the sit to stand 12/30/20: Bowels moved yesterday Doing pretty well Right great toe pain so consulted Dr. Rob Uric acid will be added and X-ray of the right foot 12/29/20: Patient frustrated BM yesterday Sputum produced and sent down to lab? Sugar 196 No pain meds required today 12/28/20: Alevan on his buttock Coughed up some green sputum 3 times yesterday but lungs are clear BM large today Oxycodone for his left foot pain helped 2+ edema Sugar 167 He is very pessimistic about his overall progress which cannot be redirected 12/27/20: Transferring without the site to stand now Improved overall BM+ Alevan vs. butt paste on buttock He sits in chair all day long on computer 12/26/20: Insurance declined skilled for now Standing and actually progressing well 2L/min and doing well DC scheduled APAP TID 12/25/20: Awaiting jail placement Actually working pretty well with therapy Denies any significant new pain Blurry vision still continues Didnt sleep real well last night 12/24/20: Eyes were better but the more he works on the computer the blurry issues return DC is on hold due to NH processes 12/23/20: Pt doing pretty well Buttock decubitus ulcer needs further treatment Discharge planned for tomorrow Hemaglobin 9.3 Midline will be discontinued at his request 12/22/20: Home O2 evaluation tomorrow for DC Wednesday DM education will be provided DC planned for [place] 12/21/20: Doing well Slept well BM today Edema improved on KRIS's Decubitus ulcers worsened due to sitting in chair all day long IS use increased 12/20/20: Now has daily complaints about minor things since he was notified last week he would need a [place] Nurse broke his grabber so will obtain replacement for him Butt paste placed on buttocks Stage 2 No other issues 12/19/20: No major issues Bowels are moving longterm placement on Wednesday12/18/20: Discharge Wednesday to the jail Family training did not go well Son was there but did not engage Insists on going home but that would not be a possibility Placing Alevin on buttock 12/17/20: Family training today at 10:00 Still has a stage 2 buttock decubitus ulcer Overall feels like he is doing much better Son at bedside when I rounded later today and he was evaluating his progress 12/16/20: Pt doing pretty well Bowels moved today Left midline is functioning Blood sugar 147 Stage 2 decubitus ulcer on the buttock Working really hard to stand 12/15/20: Overall doing well No issues BM+ No falls 12/14/20: Doing well BM+ Dyspnea still continues No pain 12/13/20: Patient more alert today and energized No pain reported Oxycodone helps the foot pain Participating with therapy 12/12/20: Pt doing a lot better Having a lot of pain, takes Oxycodone for his foot and leg pain Bowels are moving Sleeping better Pt very well could require a jail since he lives alone and is just not progressing well 12/11/20: No major issues Pretty much has plateaued and not made much progress with ambulation Epistaxis of the left nostril Nasal sprays will be continued Re-check and check with insurance coverage but he very well may need to be in a jail 12/10/20: Pt doing pretty well Slept on and off last night Remains on 4 liters of O2 Swelling in his feel is pretty minimal Did not use his BiPAP last night and that likely is the cause of not sleeping well 12/09/20: Pt slept pretty well Bowels are moving PLTs are 97, 000 Normal WBC down from 21 when he first arrived Denies any significant issues Trying to get strong enough to walk 12/08/20: Slept well last night Remeron and Melatonin has helped him a lot Sinus tachy last night BM 12/06/20 so laxatives given No other issues 12/07/20: Slept better Yonker provided for phlem HR 60 Appreciate Cardiology 4L/min O2 BM 12/06/20 12/06/20: HR 122 Cardiology consulted Sugar 54 so decreasing insulin BM++ No pain reported No sleeping well so added hypnotics of Melatonin and Remeron 12/05/20: Patient doing well Worn out from fatigue Sugars are ok No pain reported Tachycardic so consulting Dr Carranza Midline was accidently pulled out so need a new one placed Checked meds and labs Review of Systems General: Fatigue, Malaise Neurological: Weakness Objective Exam Vital Signs Vital Signs Date Time Temp Pulse Resp B/P (MAP) Pulse Ox O2 Delivery O2 Flow Rate FiO2 01/05/21 09:55 116 100/59 (73) 97 Nasal Cannula 3.50 01/05/21 05:20 36.0 18 Capillary Refill : General Appearance: No Apparent Distress, WD/WN, Anxious, Chronically ill, Obese HEENT: PERRL/EOMI, Normal ENT Inspection, Pharynx Normal Neck: Full Range of Motion, Normal Inspection, Non Tender, Supple, Carotid Bruit Respiratory: Chest Non Tender, Lungs Clear, No Accessory Muscle Use, No Respiratory Distress, Decreased Breath Sounds Cardiovascular: Regular Rate, Rhythm, No Gallop, No JVD, No Murmur, Normal Peripheral Pulses Gastrointestinal: Normal Bowel Sounds, No Organomegaly, No Pulsatile Mass, Non Tender, Soft Back: Normal Inspection, No CVA Tenderness, No Vertebral Tenderness Extremity: Normal Capillary Refill, Normal Inspection, Normal Range of Motion, Non Tender, No Calf Tenderness, Pedal Edema Neurologic/Psychiatric: Alert, Oriented x3, No Motor/Sensory Deficits, 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 FIM Transfers Therapy Code Descriptions/Definitions Functional [place] Measure: 0=Not Assessed/NA 4=Minimal Assistance 1=Total Assistance 5=Supervision or Setup 2=Maximal Assistance 6=Modified [place] 3=Moderate Assistance 7=Complete IndependenceSCALE: Activities may be completed with or without assistive devices. 2-Hsfvsepxma-vighcrb completes the activity by him/herself with no assistance from a helper. 5-Set-up or Clean-up Assistance-helper sets up or cleans up; patient completes activity. [place] assists only prior to or following the activity. 4-Supervision or Touching Assistance-helper provides verbal cues and/or touching/steadying and/or contact guard assistance as patient completes activity. Assistance may be provided throughout the activity or intermittently. 3-Partial/Moderate Assistance-helper does LESS THAN HALF the effort. [place] lifts, holds or supports trunk or limbs, but provides less than half the effort. 2-Substantial/Maximal Assistance-helper does MORE THAN HALF the effort. [place] lifts or holds trunk or limbs and provides more than half the effort. 2-Cepmxoluy-pvbptm does ALL the effort. Patient does none of the effort to complete the activity. Or, the assistance of 2 or more helpers is required for the patient to complete the activity. If activity was not attempted, code reason: 7-Patient Refused. 9-Not Applicable-not attempted and the patient did not perform the activity before the current illness, exacerbation or injury. 10-Not Attempted due to Environmental Limitations-(lack of equipment, weather restraints, etc.). 88-Not Attempted due to Medical Conditions or Safety Concerns. Roll Left to Right (QC): 5 Sit to Lying (QC): 6 Sit to Stand (QC): 3 Chair/Inv-pr-Uvbtn Xfer(QC): 3 Car Transfer (QC): 1 Gait Training Does the Patient Walk?: Yes Distance: 25'x3 Walk 10 feet (QC): 4 Walk 50 ft with 2 Turns(QC): 88 Walk 150 ft (QC): 88 Walking 10ft/uneven surface-QC: 3 Gait Persons Needed: 1 Gait Assistive Device: FWW Wheelchair Training Does the Pt Use a Wheelchair?: Yes Wheel 50 ft with 2 turns (QC): 4 Wheel 150 ft (QC): 4 Type of Wheelchair: Manual Stair Training #of Steps: 1 1 Step (curb) (QC): 2 4 Steps (QC): 88 12 Steps (QC): 88 Stairs: Pattern: Step to Balance Picking up an Object (QC): 88 ADL-Treatment Eating (QC): 6 Oral Hygiene (QC): 6 Bathing Location: L Arm, R Arm, L Upper Leg, R Upper Leg, Chest, Abdomen, Perineal Area Shower/Bathe Self (QC): 7 (denies, stating he completed himself this am with assist for bottom hygiene. When asking about LE/ foot hygiene, pt states utilized LHS) Upper Body Dressing (QC): 5 (Pt states completed with IND (s/u)) Lower Body Dressing (QC): 2 On/Off Footwear (QC): 6 (IND shoes.) Toileting Hygiene (QC): 1 (Pt. had been incontinent of bowel in shorts. 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 Obesity DM Neuropathy Anemia O2 dependence Right great toe pain consulted Dr Rob 12/30/20 dx with gout and placed on Indocin Plan: IRF protocol Monitor O2 O2 supplement 12/05/20: O2 maintained IRF protocol Cardiology consultation appreciated Midline replacement 12/06/20: Cardiology consult appreciated Decrease insulin Midline Monitor closely 12/07/20: Monitor closely O2 wean Increase acitivity Maintain Remeron and Melatonin 12/08/20: Monitor closely Check labs in am Monitor tachycardia Remeron and Melatonin 12/09/20: Labs normal Improved strength Weaning O2 Monitor insomnia Increase insulin 12/10/20: Monitor O2 Increase strength Severe myopathy of legs 12/11/20: Difficult to progress Continue therapy May need NHP 12/12/20: Pain control with Oxycodone Monitor bowels Monitor O2 12/13/20: Monitor pain Wean O2 CPAP mask seems to be working better 12/14/20: Improved status Stood up today with help O2 12/15/20: Wean O2 Monitor ambulation CPAP at night 12/16/20: Monitor progress Decubitus ulcer management Monitor BP 12/17/20: Family education/training today Monitor O2 CPAP with O2 12/18/20: Monitor O2 NH Wednesday Continue to work on stamina 12/19/20: Monitor O2 CPAP 12/20/20: Decubitus ulcer management Monitor O2 Replace grabber 12/21/20: Monitor O2 KRIS CPAP 12/22/20: DC Wednesday to [place] Home O2 evaluation 12/23/20: DC midline DC tomorrow to [place] Needs eye exam soon for blurry vision 12/24/20: DC on hold Monitor O2 12/25/20: Continue therapy Making significant progress 12/26/20: Monitor progress Standing now May be able to DC home? 12/27/20: Much improved status Improved standing No pain reported 12/28/20: Walked a bit but he gets discouraged so quickly Pain controlled in his foot Monitor cough 12/29/20: Started scheduled insulin AC Adjusted Levemir to 10 units HS since sugars are low in am and maintained Levemir 20 units at bfast Check labs in am 12/30/20: Right great toe pain eval by Dr Rob Check uric acid and xray Monitor sugar 12/31/20: Indocin for gout Monitor closely Pain control 01/01/21: Gout treatment Monitor closely Pain control IRF protocol 01/02/21: O2 Gout treatment Monitor dyspnea 01/03/21: Gout treatment Monitor O2 and dyspnea 01/04/21: O2 wean Monitor foot pain Indocin taper 01/05/21: Monitor low BP Change Gabapentin to BID from TID (1) COVID-19 (2) RICHY on CPAP (3) Obesity (4) Diabetes (5) Hypertension (6) Edema (7) Neuropathy (8) Anemia (9) Advanced age (10) Gout DEANNA BOO DO Jan 05, 2021 11:40
[2021-01-05] MEDS: ACETAMINOPHEN 325 MG TABLET PO PRN (12:16)
--- NOTE | 2021-01-05 14:02 | Progress Note - Cardiology ---
Cardiology SOAP Progress Note Subjective: Reports gen weakness, malaise, and somnolence No cp or palp or syncope No shortness of breath at rest No n/v/d Poor appetite Objective: I&O/Vital Signs 01/05/21 01/05/21 01/05/21 01/05/21 05:20 09:07 09:13 09:55 Temp 36.0 Pulse 73 116 Resp 18 B/P (MAP) 101/58 (72) 100/59 (73) Pulse Ox 94 95 97 O2 Delivery NIV CPAP Nasal Cannula Nasal Cannula Nasal Cannula O2 Flow Rate 4.00 3.00 3.50 3.50 01/05/21 00:00 Intake Total 500 ml Output Total 350 ml Balance 150 ml Constitutional: AAO x 3 Respiratory: chest is bilaterally symmetric, other (fair to good, bilateral air entry) Cardiovascular: irregularly irregular, S1 and S2, systolic murmur (soft YANET at card base) Gastrointestional: soft, audible bowel sounds Extremities: other (mild to mod, bilateral leg edema) Neurologic/Psychiatric: no motor/sensory deficits, oriented x 3, other (moves all limbs equally) Results/Procedures: Labs Laboratory Tests 01/04/21 15:28: Glucometer 211H 01/04/21 20:16: Glucometer 116H 01/05/21 04:55: Glucometer 110 01/05/21 10:50: Glucometer 149H A/P: Assessment: Low blood pressure Atrial fibrillation with controlled ventricular rate Critical illness myopathy, COVID-19 RICHY, treated with CPAP, managed by Dr Dawkins Plan: * Further reduce bb * Monitor labs from time to time KENDRA LINDSAY MD FACP FAC CCDS Jan 05, 2021 14:02
[2021-01-05 17:00] VITALS: BP 114/58
[2021-01-05 20:10] VITALS: BP 108/67
[2021-01-05] MEDS: MIRTAZAPINE 15 MG (REMERON) TAB PO SCH (20:15)
[2021-01-05] MEDS: MELATONIN 3 MG TABLET PO SCH (20:16)
[2021-01-06] MEDS: inSUlin ASPART (NovoLOG) 1 UNIT/0.01 ML (CHARGE PER UNIT) SC SCH ×7 (05:30→20:35)
[2021-01-06 05:51] VITALS: BP 113/64
[2021-01-06 06:35] LABS: BASOPHILS # (AUTO) 0.1 10^3/uL (0.0-0.1); BASOPHILS % (AUTO) 1 % (0-10); EOSINOPHILS % (AUTO) 0 % (0-10); HEMATOCRIT 24 % (40-54); HEMOGLOBIN 7.4 g/dL (13.3-17.7); LYMPHOCYTES # (AUTO) 0.9 10^3/uL (1.0-4.0); LYMPHOCYTES % (AUTO) 11 % (12-44); MEAN CORPUSCULAR HEMOGLOBIN 30 pg (25-34); MEAN CORPUSCULAR HGB CONC 31 g/dL (32-36); MEAN CORPUSCULAR VOLUME 96 fL (80-99); MEAN PLATELET VOLUME 9.7 fL (9.0-12.2); MONOCYTES # (AUTO) 1.1 10^3/uL (0.0-1.0); MONOCYTES % (AUTO) 13 % (0-12); NEUTROPHILS # (AUTO) 6.1 10^3/uL (1.8-7.8); NEUTROPHILS % (AUTO) 72 % (42-75); PLATELET COUNT 175 10^3/uL (130-400); WHITE BLOOD COUNT 8.5 10^3/uL (4.3-11.0)
[2021-01-06] MEDS: INDOMETHACIN 25 MG (INDOCIN) CAP PO SCH (06:46)
[2021-01-06] MEDS: ACETAMINOPHEN 325 MG TABLET PO PRN (06:46)
[2021-01-06 06:50] LABS: ALBUMIN 3.2 GM/DL (3.2-4.5); CHLORIDE 102 MMOL/L (98-107); POTASSIUM 4.1 MMOL/L (3.6-5.0); SODIUM 138 MMOL/L (135-145)
[2021-01-06 06:52] LABS: GLUCOSE 117 MG/DL (70-105)
[2021-01-06 06:53] LABS: TOTAL PROTEIN 6.1 GM/DL (6.4-8.2)
[2021-01-06 06:54] LABS: BILIRUBIN,TOTAL 0.8 MG/DL (0.1-1.0); CARBON DIOXIDE 25 MMOL/L (21-32)
[2021-01-06 06:56] LABS: ALKALINE PHOSPHATASE 57 U/L (40-136); CREATININE SERUM 1.04 MG/DL (0.60-1.30); GFR ESTIMATED > 60
[2021-01-06 06:57] LABS: BUN/CREATININE RATIO 17
[2021-01-06 06:59] LABS: ALANINE AMINOTRANSFERASE 17 U/L (0-55); URIC ACID 9.2 MG/DL (2.6-7.2)
--- NOTE | 2021-01-06 07:01 | PM&R Progress Note ---
Subjective HPI/CC On Admission Date Seen by Provider: Jan 06, 2021 Time Seen by Provider: 11:00 Subjective/Events-last exam 01/06/21: Hgb 7.4 and discussed placement of midline for transfusion of 1 unit and/or iron infusions and after a great deal of thought he declines both Patient doing well otherwise Fatigue about the same NHP Occult stool ordered 01/05/21: Complains about sleeping all the time Changed Gabapentin to BID instead of TID Large BM daily Mildly low BP noted Tremor reported to RN but not discussed with me 01/04/21: Sugars improved 113 this am Foot pain improved Indocin taper maintained 01/03/21: Uric acid ordered by Dr Rob Toe is better Decubitus ulcer is improved No pain otherwise Severe dyspnea when active but he seems to not be bothered about it 01/02/21: Left foot pain occurred last night Right great toe improved since Indocin BM+ NHP at DC 01/01/21: Pt was slightly hypotensive today but cardiology is managing Indocin is helping the gout in his foot Bowels are moving 3.5 liters maintained DC planned for 01/08/21 to NH 12/31/20: Dr. Rob diagnosed gout so Indocin was started Remains on 3.5 liters of O2 Scared to not use the sit to stand 12/30/20: Bowels moved yesterday Doing pretty well Right great toe pain so consulted Dr. Rob Uric acid will be added and X-ray of the right foot 12/29/20: Patient frustrated BM yesterday Sputum produced and sent down to lab? Sugar 196 No pain meds required today 12/28/20: Alevan on his buttock Coughed up some green sputum 3 times yesterday but lungs are clear BM large today Oxycodone for his left foot pain helped 2+ edema Sugar 167 He is very pessimistic about his overall progress which cannot be redirected 12/27/20: Transferring without the site to stand now Improved overall BM+ Alevan vs. butt paste on buttock He sits in chair all day long on computer 12/26/20: Insurance declined skilled for now Standing and actually progressing well 2L/min and doing well DC scheduled APAP TID 12/25/20: Awaiting jail placement Actually working pretty well with therapy Denies any significant new pain Blurry vision still continues Didnt sleep real well last night 12/24/20: Eyes were better but the more he works on the computer the blurry issues return DC is on hold due to NH processes 12/23/20: Pt doing pretty well Buttock decubitus ulcer needs further treatment Discharge planned for tomorrow Hemaglobin 9.3 Midline will be discontinued at his request 12/22/20: Home O2 evaluation tomorrow for DC Wednesday DM education will be provided DC planned for NH 12/21/20: Doing well Slept well BM today Edema improved on KRIS's Decubitus ulcers worsened due to sitting in chair all day long IS use increased 12/20/20: Now has daily complaints about minor things since he was notified last week he would need a [place] Nurse broke his grabber so will obtain replacement for him Butt paste placed on buttocks Stage 2 No other issues 12/19/20: No major issues Bowels are moving [facility] placement on Wednesday12/18/20: Discharge Wednesday to the jail Family training did not go well Son was there but did not engage Insists on going home but that would not be a possibility Placing Alevin on buttock 12/17/20: Family training today at 10:00 Still has a stage 2 buttock decubitus ulcer Overall feels like he is doing much better Son at bedside when I rounded later today and he was evaluating his progress 12/16/20: Pt doing pretty well Bowels moved today Left midline is functioning Blood sugar 147 Stage 2 decubitus ulcer on the buttock Working really hard to stand 12/15/20: Overall doing well No issues BM+ No falls 12/14/20: Doing well BM+ Dyspnea still continues No pain 12/13/20: Patient more alert today and energized No pain reported Oxycodone helps the foot pain Participating with therapy 12/12/20: Pt doing a lot better Having a lot of pain, takes Oxycodone for his foot and leg pain Bowels are moving Sleeping better Pt very well could require a jail since he lives alone and is just not progressing well 12/11/20: No major issues Pretty much has plateaued and not made much progress with ambulation Epistaxis of the left nostril Nasal sprays will be continued Re-check and check with insurance coverage but he very well may need to be in a jail 12/10/20: Pt doing pretty well Slept on and off last night Remains on 4 liters of O2 Swelling in his feel is pretty minimal Did not use his BiPAP last night and that likely is the cause of not sleeping well 12/09/20: Pt slept pretty well Bowels are moving PLTs are 97, 000 Normal WBC down from 21 when he first arrived Denies any significant issues Trying to get strong enough to walk 12/08/20: Slept well last night Remeron and Melatonin has helped him a lot Sinus tachy last night BM 12/06/20 so laxatives given No other issues 12/07/20: Slept better Yonker provided for phlem HR 60 Appreciate Cardiology 4L/min O2 BM 12/06/20 12/06/20: HR 122 Cardiology consulted Sugar 54 so decreasing insulin BM++ No pain reported No sleeping well so added hypnotics of Melatonin and Remeron 12/05/20: Patient doing well Worn out from fatigue Sugars are ok No pain reported Tachycardic so consulting Dr Carranza Midline was accidently pulled out so need a new one placed Checked meds and labs Review of Systems General: Fatigue, Malaise Neurological: Weakness Objective Exam Vital Signs Vital Signs Date Time Temp Pulse Resp B/P (MAP) Pulse Ox O2 Delivery O2 Flow Rate FiO2 01/07/21 06:50 95 Nasal Cannula 3.00 01/07/21 06:15 37.0 114 18 143/86 (105) Capillary Refill : General Appearance: No Apparent Distress, WD/WN, Anxious, Chronically ill, Obese HEENT: PERRL/EOMI, Normal ENT Inspection, Pharynx Normal Neck: Full Range of Motion, Normal Inspection, Non Tender, Supple, Carotid Bruit Respiratory: Chest Non Tender, Lungs Clear, No Accessory Muscle Use, No Respiratory Distress, Decreased Breath Sounds Cardiovascular: Regular Rate, Rhythm, No Gallop, No JVD, No Murmur, Normal Peripheral Pulses Gastrointestinal: Normal Bowel Sounds, No Organomegaly, No Pulsatile Mass, Non Tender, Soft Back: Normal Inspection, No CVA Tenderness, No Vertebral Tenderness Extremity: Normal Capillary Refill, Normal Inspection, Normal Range of Motion, Non Tender, No Calf Tenderness, Pedal Edema Neurologic/Psychiatric: Alert, Oriented x3, No Motor/Sensory Deficits, 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 FIM Transfers Therapy Code Descriptions/Definitions Functional [place] Measure: 0=Not Assessed/NA 4=Minimal Assistance 1=Total Assistance 5=Supervision or Setup 2=Maximal Assistance 6=Modified [place] 3=Moderate Assistance 7=Complete IndependenceSCALE: Activities may be completed with or without assistive devices. 6-Gseytgdtsa-mbwlxqb completes the activity by him/herself with no assistance from a helper. 5-Set-up or Clean-up Assistance-helper sets up or cleans up; patient completes activity. [place] assists only prior to or following the activity. 4-Supervision or Touching Assistance-helper provides verbal cues and/or touching/steadying and/or contact guard assistance as patient completes activity. Assistance may be provided throughout the activity or intermittently. 3-Partial/Moderate Assistance-helper does LESS THAN HALF the effort. [place] lifts, holds or supports trunk or limbs, but provides less than half the effort. 2-Substantial/Maximal Assistance-helper does MORE THAN HALF the effort. [place] lifts or holds trunk or limbs and provides more than half the effort. 9-Bhgtvnhei-edwkxp does ALL the effort. Patient does none of the effort to complete the activity. Or, the assistance of 2 or more helpers is required for the patient to complete the activity. If activity was not attempted, code reason: 7-Patient Refused. 9-Not Applicable-not attempted and the patient did not perform the activity before the current illness, exacerbation or injury. 10-Not Attempted due to Environmental Limitations-(lack of equipment, weather restraints, etc.). 88-Not Attempted due to Medical Conditions or Safety Concerns. Roll Left to Right (QC): 5 Sit to Lying (QC): 6 Sit to Stand (QC): 3 Chair/Scg-vk-Ccghx Xfer(QC): 3 Car Transfer (QC): 1 Gait Training Does the Patient Walk?: Yes Distance: 25'x3 Walk 10 feet (QC): 4 Walk 50 ft with 2 Turns(QC): 88 Walk 150 ft (QC): 88 Walking 10ft/uneven surface-QC: 3 Gait Persons Needed: 1 Gait Assistive Device: FWW Wheelchair Training Does the Pt Use a Wheelchair?: Yes Wheel 50 ft with 2 turns (QC): 4 Wheel 150 ft (QC): 4 Type of Wheelchair: Manual Stair Training #of Steps: 1 1 Step (curb) (QC): 2 4 Steps (QC): 88 12 Steps (QC): 88 Stairs: Pattern: Step to Balance Picking up an Object (QC): 88 ADL-Treatment Eating (QC): 6 Oral Hygiene (QC): 6 Bathing Location: L Arm, R Arm, L Upper Leg, R Upper Leg, Chest, Abdomen, Perineal Area Shower/Bathe Self (QC): 7 (denies, stating he completed himself this am with assist for bottom hygiene. When asking about LE/ foot hygiene, pt states utilized LHS) Upper Body Dressing (QC): 5 (Pt states completed with IND (s/u)) Lower Body Dressing (QC): 2 On/Off Footwear (QC): 6 (IND shoes.) Toileting Hygiene (QC): 1 (Pt. had been incontinent of bowel in shorts. 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 Obesity DM Neuropathy Anemia 7.4 on 01/06/21 but declined transfusion and iron infusions O2 dependence Right great toe pain consulted Dr Rob 12/30/20 dx with gout and placed on Indocin Plan: IRF protocol Monitor O2 O2 supplement 12/05/20: O2 maintained IRF protocol Cardiology consultation appreciated Midline replacement 12/06/20: Cardiology consult appreciated Decrease insulin Midline Monitor closely 12/07/20: Monitor closely O2 wean Increase acitivity Maintain Remeron and Melatonin 12/08/20: Monitor closely Check labs in am Monitor tachycardia Remeron and Melatonin 12/09/20: Labs normal Improved strength Weaning O2 Monitor insomnia Increase insulin 12/10/20: Monitor O2 Increase strength Severe myopathy of legs 12/11/20: Difficult to progress Continue therapy May need NHP 12/12/20: Pain control with Oxycodone Monitor bowels Monitor O2 12/13/20: Monitor pain Wean O2 CPAP mask seems to be working better 12/14/20: Improved status Stood up today with help O2 12/15/20: Wean O2 Monitor ambulation CPAP at night 12/16/20: Monitor progress Decubitus ulcer management Monitor BP 12/17/20: Family education/training today Monitor O2 CPAP with O2 12/18/20: Monitor O2 NH Wednesday Continue to work on stamina 12/19/20: Monitor O2 CPAP 12/20/20: Decubitus ulcer management Monitor O2 Replace grabber 12/21/20: Monitor O2 KRIS CPAP 12/22/20: DC Wednesday to [place] Home O2 evaluation 12/23/20: DC midline DC tomorrow to [place] Needs eye exam soon for blurry vision 12/24/20: DC on hold Monitor O2 12/25/20: Continue therapy Making significant progress 12/26/20: Monitor progress Standing now May be able to DC home? 12/27/20: Much improved status Improved standing No pain reported 12/28/20: Walked a bit but he gets discouraged so quickly Pain controlled in his foot Monitor cough 12/29/20: Started scheduled insulin AC Adjusted Levemir to 10 units HS since sugars are low in am and maintained Levemir 20 units at bfast Check labs in am 12/30/20: Right great toe pain eval by Dr Rob Check uric acid and xray Monitor sugar 12/31/20: Indocin for gout Monitor closely Pain control 01/01/21: Gout treatment Monitor closely Pain control IRF protocol 01/02/21: O2 Gout treatment Monitor dyspnea 01/03/21: Gout treatment Monitor O2 and dyspnea 01/04/21: O2 wean Monitor foot pain Indocin taper 01/05/21: Monitor low BP Change Gabapentin to BID from TID 01/06/21: Hgb 7.4 but patient declines transfusion and iron infusions Monitor O2 (1) COVID-19 (2) RICHY on CPAP (3) Obesity (4) Diabetes (5) Hypertension (6) Edema (7) Neuropathy (8) Anemia (9) Advanced age (10) Gout DEANNA BOO DO Jan 06, 2021 07:01
[2021-01-06] MEDS: ADVAIR HFA 115/21 MCG INHALER 8 GM IH SCH ×2 (07:03→18:21)
[2021-01-06] MEDS: UMECLIDINIUM BROMIDE (INCRUSE ELLIPTA) 7'S IH SCH (07:04)
[2021-01-06] MEDS: ASPIRIN 81 MG CHEW (CHILDREN'S ASA) PO SCH (08:06)
[2021-01-06] MEDS: FINASTERIDE (PROSCAR) 5 MG TAB PO SCH (08:07)
[2021-01-06] MEDS: VITAMIN D3 25 MCG (1,000 UNITS) TABLET PO SCH (08:07)
[2021-01-06] MEDS: SENNA W/DOCUSATE (SENOKOT S) TABLET PO SCH ×2 (08:07→20:35)
[2021-01-06] MEDS: meTOprolol TARTRATE 25 MG (LOPRESSOR) TABLET PO SCH (08:07)
[2021-01-06] MEDS: TAMSULOSIN 0.4 MG (FLOMAX) CAP PO SCH (08:07)
[2021-01-06] MEDS: GABAPENTIN 100 MG (NEURONTIN) CAP PO SCH ×2 (08:07→20:35)
[2021-01-06] MEDS: DOCUSATE SODIUM 100 MG (COLACE) CAP PO SCH ×2 (08:07→20:35)
[2021-01-06] MEDS: PANTOPRAZOLE 40 MG (PROTONIX) TAB PO SCH (08:07)
[2021-01-06] MEDS: SALIVA STIMULANT MOUTH SPRAY (BIOTENE) 1.5 OZ MM SCH ×4 (08:08→20:35)
[2021-01-06] MEDS: ASCORBIC ACID (VIT C) 500 MG TABLET PO SCH ×2 (08:08→17:01)
[2021-01-06] MEDS: polyethylene glycoL POWDER 17 GM (MIRALAX) PACK PO SCH ×2 (08:08→20:35)
[2021-01-06] MEDS: APIXABAN 5 MG (ELIQUIS) TABLET PO SCH ×2 (08:08→20:35)
[2021-01-06] MEDS: FLUTICASONE NASAL SPRAY (FLONASE) 16 GM BTL NS SCH (08:10)
[2021-01-06] MEDS: SALINE NASAL SPRAY (OCEAN) 45 ML BTL NS SCH ×3 (08:10→20:33)
--- NOTE | 2021-01-06 10:05 | Physical Therapy Daily Note ---
PT Daily Note-Current Subjective Patient in at bedside pre tx, agrees to PT, has no complaints of pain other than a slight headache, nurse reports that he has low hemoglobin. Will be co- treating with OT due to poor patient mobility, strength, endurance, SOB with minimal activity, coordinate UE and LE during activity, safety and reduce risk of falls. Appearance Patient in in therapy gym post tx, will continue to work with OT for a bit. Mental Status Patient Orientation: Person, Place, Situation, Normal For Age Attachments: Oxygen Transfers SCALE: Activities may be completed with or without assistive devices. 7-Eynkvuydpg-gsbedxm completes the activity by him/herself with no assistance from a helper. 5-Set-up or Clean-up Assistance-helper sets up or cleans up; patient completes activity. [place] assists only prior to or following the activity. 4-Supervision or Touching Assistance-helper provides verbal cues and/or touching/steadying and/or contact guard assistance as patient completes activity. Assistance may be provided throughout the activity or intermittently. 3-Partial/Moderate Assistance-helper does LESS THAN HALF the effort. [place] lifts, holds or supports trunk or limbs, but provides less than half the effort. 2-Substantial/Maximal Assistance-helper does MORE THAN HALF the effort. [place] lifts or holds trunk or limbs and provides more than half the effort. 2-Ttatngpfa-vxnfkb does ALL the effort. Patient does none of the effort to complete the activity. Or, the assistance of 2 or more helpers is required for the patient to complete the activity. If activity was not attempted, code reason: 7-Patient Refused. 9-Not Applicable-not attempted and the patient did not perform the activity before the current illness, exacerbation or injury. 10-Not Attempted due to Environmental Limitations-(lack of equipment, weather restraints, etc.). 88-Not Attempted due to Medical Conditions or Safety Concerns. Sit to Stand (QC): 3 Weight Bearing Full Weight Bearing Full Weight Bearing Gait Training Distance: 5', 10', 15, Walk 10 feet (QC): 3 Gait Assistive Device: FWW follow, slumped posture, slow shuffling steps, poor foot clearance Wheelchair Training Does the Pt Use a Wheelchair?: Yes Wheel 50 ft with 2 turns (QC): 4 Type of Wheelchair: Manual 120' Exercises Seated Therapy Exercises: Ankle pumps, Long arc quads, Hip flexion, Hip abd/add (with ball and RTB) Seated Reps: 20 trunk strengthening and stability during sitting UE exercises Treatments PT performed transfers, ambulation, WC mobility, LE exercise, trunk strengthening, OT performed UE exercise, UE positioning and safety during activ ity Assessment Current Status: Poor Progress Patient has low hemoglobin, fatigues faster than normal, very SOB, HR 120bpm and 135bpm with activity, O2 stayed at 98% PT Short Term Goals Short Term Goals Time Frame: Dec 11, 2020 Roll Left & Right: 4 (met) Sit to lyin (met) Lying to sitting on side of be: 4 (met) Sit to stand: 3 Chair/nza-kl-kvggp transfer: 3 Walk 10 feet: 3 Walk 50 feet with two turns: 3 PT Sales And Service Agent Goals Assisted Goals PT Assisted Goals Time Frame: Jan 01, 2021 Roll Left & Right (QC): 6 Sit to Lying (QC): 6 Lying-Sitting on Side/Bed(QC): 6 Sit to Stand (QC): 6 Chair/Aqb-uq-Rjvwl Xfer(QC): 6 Toilet Transfer (QC): 6 Car Transfer (QC): 6 Does the Patient Walk: No and Walking Goal IS indicated Walk 10 feet (QC): 6 Walk 50ft with 2 Turns (QC): 6 Walk 150 ft (QC): 6 Walking 10ft on Uneven Surface: 4 1 Step (curb) (QC): 4 4 Steps (QC): 4 12 Steps (QC): 4 Picking up an Object (QC): 5 Does the Pt use WC or Scooter?: No Wheel 50 feet with 2 turns (QC: 9 Wheel 150 feet: 9 PT Plan Problem List Problem List: Activity Tolerance, Functional Strength, Safety, Balance, Gait, Transfer, Bed Mobility, ROM Treatment/Plan Treatment Plan: Continue Plan of Care Treatment Plan: Bed Mobility, Education, Functional Activity Erick, Functional Strength, Group Therapy, Gait, Safety, Therapeutic Exercise, Transfers Treatment Duration: Jan 01, 2021 Frequency: At least 5 of 7 days/Wk (IRF) Estimated Hrs Per Day: Other (see notation) Patient and/or Family Agrees t: Yes Safety Risks/Education Patient Education: Gait Training, Transfer Techniques, Correct Positioning, W/C Management, Safety Issues Teaching Recipient: Patient Teaching Methods: Demonstration, Discussion Response to Teaching: Reinforcement Needed Time/GCodes Time In: 08 Time Out: 914 Total Billed Treatment Time: 75 Total Billed Treatment 1 visit FA 45' EX 30' co-treated with OT from [id number] JENSEN AMBRIZ PT Jan 06, 2021 10:05
--- NOTE | 2021-01-06 11:13 | Progress Note - Cardiology ---
Cardiology SOAP Progress Note Subjective: Sitting up in w/c States he does not feel well in general, but unable to specify States he did not sleep well last night Objective: I&O/Vital Signs 01/07/21 01/07/21 01/07/21 06:15 06:49 06:50 Temp 37.0 Pulse 114 Resp 18 B/P (MAP) 143/86 (105) Pulse Ox 93 95 95 O2 Delivery Nasal Cannula Nasal Cannula Nasal Cannula O2 Flow Rate 4.00 3.00 3.00 01/07/21 00:00 Intake Total 800 ml Output Total 600 ml Balance 200 ml Constitutional: AAO x 3 Respiratory: chest is bilaterally symmetric, other (fair to good, bilateral air entry) Cardiovascular: irregularly irregular, S1 and S2, systolic murmur (soft YANET at card base) Gastrointestional: soft, audible bowel sounds Extremities: other (mild to mod, bilateral leg edema) Neurologic/Psychiatric: no motor/sensory deficits, oriented x 3, other (moves all limbs equally) Results/Procedures: Labs Laboratory Tests 01/06/21 15:31: Glucometer 124H 01/06/21 20:29: Glucometer 128H 01/07/21 06:02: Glucometer 118H 01/07/21 10:49: Glucometer 157H A/P: Assessment: Low blood pressure - improved with further reduction of medications Atrial fibrillation with controlled ventricular rate Critical illness myopathy, COVID-19 RICHY, treated with CPAP, managed by Dr Dawkins Anemia of undetermined etiology Plan: * Further reduce bb * Monitor labs from time to time * Anemia of undetermined etiology - medical services managing - discussed consideration of transfusion with him, he is not agreeable at this time DONA VALIENTE Jan 06, 2021 11:13
--- NOTE | 2021-01-06 14:16 | Occupational Ther Daily Note ---
OT Current Status-Daily Note Subjective Pt. reports that he feels significant fatigue. No pain reported. Appearance Pt. up in chair with PT. Agrees to work with OT as well. Mental Status/Objective Patient Orientation: Person, Place, Time, Situation ADL-Treatment Therapy Code Descriptions/Definitions Functional [place] Measure: 0=Not Assessed/NA 4=Minimal Assistance 1=Total Assistance 5=Supervision or Setup 2=Maximal Assistance 6=Modified [place] 3=Moderate Assistance 7=Complete IndependenceSCALE: Activities may be completed with or without assistive devices. 7-Psqgoddbbq-eeiqrvt completes the activity by him/herself with no assistance from a helper. 5-Set-up or Clean-up Assistance-helper sets up or cleans up; patient completes activity. [place] assists only prior to or following the activity. 4-Supervision or Touching Assistance-helper provides verbal cues and/or touching/steadying and/or contact guard assistance as patient completes activity. Assistance may be provided throughout the activity or intermittently. 3-Partial/Moderate Assistance-helper does LESS THAN HALF the effort. [place] lifts, holds or supports trunk or limbs, but provides less than half the effort. 2-Substantial/Maximal Assistance-helper does MORE THAN HALF the effort. [place] lifts or holds trunk or limbs and provides more than half the effort. 5-Douuegakj-qlijxf does ALL the effort. Patient does none of the effort to complete the activity. Or, the assistance of 2 or more helpers is required for the patient to complete the activity. If activity was not attempted, code reason: 7-Patient Refused. 9-Not Applicable-not attempted and the patient did not perform the activity before the current illness, exacerbation or injury. 10-Not Attempted due to Environmental Limitations-(lack of equipment, weather restraints, etc.). 88-Not Attempted due to Medical Conditions or Safety Concerns. Other Treatment Pt. verbalizes that he has been very tired. Hemoglobin lower than usual but nursing okay for therapy to work with pt. 02 sats and HR monitored throughout. Sats okay on 4L but HR elevated with activity, 120-130. Pt. stands 3 different times with mod/max x 2 sit-stand. Co-treatment with PT performed due to poor endurance and strength. Pt. ambulated with walker approximately 3 trials, but only half of usual distance. Please see PT note for distance. Pt. states, "thats enough walking." Sits in chair and OT facilitates weight shifts and UE reach/strength with ball while PT facilitates pelvic tilts and core strength. Worked on trunk mobility and UE mobility/strength. Pt. self propels back to room only half way, and pt. pushes the rest. All needs met in room. Education OT Patient Education: Correct positioning, Exercise program, Modified ADL techniques, Progress toward Goal/Update tx plan, Purpose of tx/functional activities, Reviewed precautions, Rehab process, Transfer techniques Teaching Recipient: Patient Teaching Methods: Demonstration, Discussion Response to Teaching: Verbalize Understanding, Return Demonstration OT Short Term Goals Short Term Goals Time Frame: Dec 11, 2020 Eatin Oral hygiene: 88 Toileting hygiene: 2 Shower/bathe self: 3 Upper body dressin Lower body dressin Putting on/taking off footwear: 6 OT T[place] Goals Teller [place]ault Goals Time Frame: Dec 25, 2020 Eating (QC): 6 Oral Hygiene (QC): 6 Toileting Hygiene (QC): 5 Shower/Bathe Self (QC): 5 Upper Body Dressing (QC): 6 Lower Body Dressing (QC): 4 On/Off Footwear (QC): 6 Additional Goals: 1-Demonstrate ADL Tasks, 2-Verbalize Understanding, 3- ImproveStrength/Erick 1=Demonstrate adherence to instructed precautions during ADL tasks. 2=Patient will verbalize/demonstrate understanding of assistive device s/modifications for ADL. 3=Patient will improve strength/tolerance for activity to enable patient to perform ADL's. OT Education/Plan Problem List/Assessment Assessment: Decreased Activ Tolerance, Decreased UE Strength, Dependent Transfers, Impaired Funct Balance, Impaired I ADL's, Impaired Self-Care Skills, Restricted Funct UE ROM Discharge Recommendations Plan/Recommendations: Continue POC Therapy Discharge Recommendati: 24 Hour Supervision Treatment Plan/Plan of Care Treatment,Training & Education: Yes Patient would benefit from OT for education, treatment and training to promote independence in ADL's, mobility, safety and/or upper extremity function for ADL's. Plan of Care: ADL Retraining, Caregiver Training, Functional Mobility, Group Exercise/Act as Ind, UE Funct Exercise/Act Treatment Duration: Dec 25, 2020 Frequency: Modified Program (IRF) Estimated Hrs Per Day: 1.5 hours per day Agreement: Yes Rehab Potential: Fair Time/GCodes Start Time: 08:15 Stop Time: 09:30 Total Time Billed (hr/min): 75 Billed Treatment Time 8072-4933 1, FA x 60minutes Co-treatment with PT FA x 15minutes CAMILA SINCLAIR OT Jan 06, 2021 14:16
--- NOTE | 2021-01-06 17:02 | Progress Note - Cardiology ---
Cardiology SOAP Progress Note Subjective: Gen malaise, weakness Somnolence No cp or palp or syncope Bilat leg swelling No n/v/d Objective: I&O/Vital Signs 01/06/21 01/06/21 01/06/21 05:51 07:04 09:00 Temp 36.2 Pulse 88 Resp 18 B/P (MAP) 113/64 (80) Pulse Ox 99 91 O2 Delivery NIV CPAP Nasal Cannula Nasal Cannula O2 Flow Rate 3.50 3.00 3.50 01/06/21 00:00 Intake Total 1350 ml Output Total 900 ml Balance 450 ml Constitutional: AAO x 3 Respiratory: chest is bilaterally symmetric, other (fair to good, bilateral air entry) Cardiovascular: irregularly irregular, S1 and S2, systolic murmur (soft YANET at card base) Gastrointestional: soft, audible bowel sounds Extremities: other (mild to mod, bilateral leg edema) Neurologic/Psychiatric: no motor/sensory deficits, oriented x 3, other (moves all limbs equally) Results/Procedures: Labs Laboratory Tests 01/05/21 19:59: Glucometer 156H 01/06/21 05:25: Glucometer 125H 01/06/21 05:27: White Blood Count 8.5, Red Blood Count 2.50L, Hemoglobin 7.4L, Hematocrit 24L, Mean Corpuscular Volume 96, Mean Corpuscular Hemoglobin 30, Mean Corpuscular Hemoglobin Concent 31L, Red Cell Distribution Width 20.6H, Platelet Count 175, Mean Platelet Volume 9.7, Immature Granulocyte % (Auto) 3, Neutrophils (%) (Auto) 72, Lymphocytes (%) (Auto) 11L, Monocytes (%) (Auto) 13H, Eosinophils (%) (Auto) 0, Basophils (%) (Auto) 1, Neutrophils # (Auto) 6.1, Lymphocytes # (Auto) 0.9L, Monocytes # (Auto) 1.1H, Eosinophils # (Auto) 0.0, Basophils # (Auto) 0.1, Immature Granulocyte # (Auto) 0.2H, Sodium Level 138, Potassium Level 4.1, Chloride Level 102, Carbon Dioxide Level 25, Anion Gap 11, Blood Urea Nitrogen 18, Creatinine 1.04, Estimat Glomerular Filtration Rate > 60, BUN/Creatinine Ratio 17, Glucose Level 117H, Uric Acid 9.2H, Calcium Level 9.0, Corrected Calcium 9.6, Total Bilirubin 0.8, Aspartate Amino Transf (AST/SGOT) 13, Alanine Aminotransferase (ALT/SGPT) 17, Alkaline Phosphatase 57, Total Protein 6.1L, Albumin 3.2 01/06/21 10:46: Glucometer 142H 01/06/21 15:31: Glucometer 124H Laboratory Tests 01/06/21 05:27 A/P: Assessment: Gen malaise, probably at least partly due to marked anemia Low blood pressure Atrial fibrillation with controlled ventricular rate Critical illness myopathy, COVID-19 RICHY, treated with CPAP, managed by Dr Dawkins Anemia of undetermined etiology Plan: * D/c bb * Adivsed blood transfusion for symptomatic anemia. He refuses. Dr Dawkins is to evaluate and treat anemia * Monitor labs from time to time KENDRA LINDSAY MD FACP FACC CCDS Jan 06, 2021 17:02
[2021-01-06 17:26] VITALS: BP 91/59
[2021-01-06] MEDS: MIRTAZAPINE 15 MG (REMERON) TAB PO SCH (20:35)
[2021-01-06] MEDS: MELATONIN 3 MG TABLET PO SCH (20:35)
[2021-01-07] VITALS (10 sets, daily range): BP systolic 104–143; BP diastolic 59–86
[2021-01-07] MEDS: inSUlin ASPART (NovoLOG) 1 UNIT/0.01 ML (CHARGE PER UNIT) SC SCH ×7 (06:00→20:30)
[2021-01-07] MEDS: ADVAIR HFA 115/21 MCG INHALER 8 GM IH SCH ×2 (06:46→18:17)
[2021-01-07] MEDS: UMECLIDINIUM BROMIDE (INCRUSE ELLIPTA) 7'S IH SCH (06:47)
[2021-01-07] MEDS: INDOMETHACIN 25 MG (INDOCIN) CAP PO SCH (07:28)
--- NOTE | 2021-01-07 09:00 | Physical Therapy Daily Note ---
PT Daily Note-Current Subjective Patient in recliner pre tx, agrees to PT, has no complaints of pain. Patient is very lethargic and tired, has low hemoglobin. His BP is 115/75 during tx, HR 120bpm, O2 100%. Will be co-treating with OT due to poor patient mobility, strength, endurance, severe fatigue with activity, coordinate UE and LE during activity, safety and reduce risk of falls. Appearance Patient in WC in room post tx with nurse call, OT in room to continue working with patient. Mental Status Patient Orientation: Person, Place, Situation Attachments: Oxygen Transfers SCALE: Activities may be completed with or without assistive devices. 0-Uflsaqjuxw-yvpeuwa completes the activity by him/herself with no assistance from a helper. 5-Set-up or Clean-up Assistance-helper sets up or cleans up; patient completes activity. [place] assists only prior to or following the activity. 4-Supervision or Touching Assistance-helper provides verbal cues and/or touching/steadying and/or contact guard assistance as patient completes activity. Assistance may be provided throughout the activity or intermittently. 3-Partial/Moderate Assistance-helper does LESS THAN HALF the effort. [place] lifts, holds or supports trunk or limbs, but provides less than half the effort. 2-Substantial/Maximal Assistance-helper does MORE THAN HALF the effort. [place] lifts or holds trunk or limbs and provides more than half the effort. 7-Egugkxsdr-bvnpqp does ALL the effort. Patient does none of the effort to complete the activity. Or, the assistance of 2 or more helpers is required for the patient to complete the activity. If activity was not attempted, code reason: 7-Patient Refused. 9-Not Applicable-not attempted and the patient did not perform the activity befo re the current illness, exacerbation or injury. 10-Not Attempted due to Environmental Limitations-(lack of equipment, weather re straints, etc.). 88-Not Attempted due to Medical Conditions or Safety Concerns. Roll Left & Right (QC): 2 Sit to Lying (QC): 2 Lying to Sitting/Side of Bed(Q: 2 Sit to Stand (QC): 1 Chair/Fma-xp-Epdxm Xfer(QC): 3 Toilet Transfer (QC): 3 Car Transfer (QC): 88 Assist of 2 required for sit to stand, min assist for transfers, car transfer not attempted due to severe patient fatigue, would be unsafe to do so at this time Weight Bearing Full Weight Bearing Full Weight Bearing Gait Training Distance: 15' Walk 10 feet (QC): 4 Walk 50 ft with 2 Turns(QC): 88 Walk 150 ft (QC): 88 Walking 10ft/uneven surface-QC: 88 Gait Persons Needed: 1 Gait Assistive Device: FWW Patient ambulated 15' with CGA and WC follow, very fatigued and SOB after ambulation. Still needed assist of 2 to stand before ambulation. Wheelchair Training Does the Pt Use a Wheelchair?: Yes Wheel 50 ft with 2 turns (QC): 4 Type of Wheelchair: Manual 50'x2, very very slow, rest breaks due to fatigue Stair Training 1 Step (curb) (QC): 88 4 Steps (QC): 88 12 Steps (QC): 88 Balance Picking up an Object (QC): 88 Treatments PT worked on bed mobility and transfers, ambulation, WC mobility, safety and positioning during dressing and cleaning, OT worked on dressing and cleaning, UE positioning and safety during activity Assessment Current Status: Poor Progress worse fatigue and endurance PT Short Term Goals Short Term Goals Time Frame: Dec 11, 2020 Roll Left & Right: 4 (met) Sit to lyin (met) Lying to sitting on side of be: 4 (met) Sit to stand: 3 Chair/jzy-hk-elomv transfer: 3 Walk 10 feet: 3 Walk 50 feet with two turns: 3 PT Correction Goals Spray Drier Operator Helper Goals PT Spray Drier Operator Helper Goals Time Frame: Jan 01, 2021 Roll Left & Right (QC): 6 Sit to Lying (QC): 6 Lying-Sitting on Side/Bed(QC): 6 Sit to Stand (QC): 6 Chair/Lfa-ws-Dbkfb Xfer(QC): 6 Toilet Transfer (QC): 6 Car Transfer (QC): 6 Does the Patient Walk: No and Walking Goal IS indicated Walk 10 feet (QC): 6 Walk 50ft with 2 Turns (QC): 6 Walk 150 ft (QC): 6 Walking 10ft on Uneven Surface: 4 1 Step (curb) (QC): 4 4 Steps (QC): 4 12 Steps (QC): 4 Picking up an Object (QC): 5 Does the Pt use WC or Scooter?: No Wheel 50 feet with 2 turns (QC: 9 Wheel 150 feet: 9 PT Plan Problem List Problem List: Activity Tolerance, Functional Strength, Safety, Balance, Gait, Transfer, Bed Mobility, ROM Treatment/Plan Treatment Plan: Continue Plan of Care Treatment Plan: Bed Mobility, Education, Functional Activity Erick, Functional Strength, Group Therapy, Gait, Safety, Therapeutic Exercise, Transfers Treatment Duration: Jan 01, 2021 Frequency: At least 5 of 7 days/Wk (IRF) Estimated Hrs Per Day: Other (see notation) Patient and/or Family Agrees t: Yes Safety Risks/Education Patient Education: Gait Training, Transfer Techniques, Correct Positioning, W/C Management, Safety Issues Teaching Recipient: Patient Teaching Methods: Demonstration, Discussion Response to Teaching: Reinforcement Needed Time/GCodes Time In: 0800 Time Out: 899 Total Billed Treatment Time: 60 Total Billed Treatment 1 visit FA 60' co-treat from [id number] JENSEN AMBRIZ PT Jan 07, 2021 09:00
[2021-01-07] MEDS: FLUTICASONE NASAL SPRAY (FLONASE) 16 GM BTL NS SCH (09:09)
[2021-01-07] MEDS: FINASTERIDE (PROSCAR) 5 MG TAB PO SCH (09:10)
[2021-01-07] MEDS: GABAPENTIN 100 MG (NEURONTIN) CAP PO SCH ×2 (09:10→20:26)
[2021-01-07] MEDS: TAMSULOSIN 0.4 MG (FLOMAX) CAP PO SCH (09:10)
[2021-01-07] MEDS: PANTOPRAZOLE 40 MG (PROTONIX) TAB PO SCH (09:10)
[2021-01-07] MEDS: SALIVA STIMULANT MOUTH SPRAY (BIOTENE) 1.5 OZ MM SCH ×4 (09:10→19:38)
[2021-01-07] MEDS: SALINE NASAL SPRAY (OCEAN) 45 ML BTL NS SCH ×3 (09:10→20:30)
[2021-01-07] MEDS: DOCUSATE SODIUM 100 MG (COLACE) CAP PO SCH ×2 (09:10→20:26)
[2021-01-07] MEDS: VITAMIN D3 25 MCG (1,000 UNITS) TABLET PO SCH (09:10)
[2021-01-07] MEDS: ASCORBIC ACID (VIT C) 500 MG TABLET PO SCH ×2 (09:12→17:35)
[2021-01-07] MEDS: polyethylene glycoL POWDER 17 GM (MIRALAX) PACK PO SCH ×2 (09:16→19:38)
[2021-01-07] MEDS: SENNA W/DOCUSATE (SENOKOT S) TABLET PO SCH ×2 (09:17→20:26)
--- NOTE | 2021-01-07 09:34 | Occupational Ther Daily Note ---
OT Current Status-Daily Note Subjective Pt. reports that he is very tired this date. BP checked and is 115/75. Pt. reports "tenderness" on bottom of left heel. Heel checked and is slightly red on outer edge. KRIS hose removed on that side and pt.'s foot elevated with pillow. Mental Status/Objective Patient Orientation: Person, Place Attachments: Oxygen Oxygen at 100% on 4L. Changed to 3L. ADL-Treatment Therapy Code Descriptions/Definitions Functional [place] Measure: 0=Not Assessed/NA 4=Minimal Assistance 1=Total Assistance 5=Supervision or Setup 2=Maximal Assistance 6=Modified [place] 3=Moderate Assistance 7=Complete IndependenceSCALE: Activities may be completed with or without assistive devices. 4-Uvlcmfsrzm-eaikocd completes the activity by him/herself with no assistance from a helper. 5-Set-up or Clean-up Assistance-helper sets up or cleans up; patient completes activity. [place] assists only prior to or following the activity. 4-Supervision or Touching Assistance-helper provides verbal cues and/or touching/steadying and/or contact guard assistance as patient completes activity. Assistance may be provided throughout the activity or intermittently. 3-Partial/Moderate Assistance-helper does LESS THAN HALF the effort. [place] lifts, holds or supports trunk or limbs, but provides less than half the effort. 2-Substantial/Maximal Assistance-helper does MORE THAN HALF the effort. [place] lifts or holds trunk or limbs and provides more than half the effort. 9-Ahdjnhnsu-trnjan does ALL the effort. Patient does none of the effort to complete the activity. Or, the assistance of 2 or more helpers is required for the patient to complete the activity. If activity was not attempted, code reason: 7-Patient Refused. 9-Not Applicable-not attempted and the patient did not perform the activity before the current illness, exacerbation or injury. 10-Not Attempted due to Environmental Limitations-(lack of equipment, weather restraints, etc.). 88-Not Attempted due to Medical Conditions or Safety Concerns. Shower/Bathe Self (QC): 7 (Pt. continues to decline showering this date. States, "I just don't feel like it.") Upper Body Dressing (QC): 4 Lower Body Dressing (QC): 1 (Assist in stance by PT for upright posture, and OT doffed shorts down over hips.) On/Off Footwear: 2 Toileting Hygiene (QC): 1 (Pt. incontinent of bowel and was unaware. PT assisted pt. with standing while OT cleansed bottom.) Other Treatment Pt. seen for partial co-treatment with PT due to low endurance/fatigue and poor tolerance. Pt. requires assistance x 2 to stand with walker, and ambulated with wheelchair follow and min assist 15 feet. Pt. requests to sit, and does not feel like ambulating again. Pt. in same clothes from several days ago, as he likes his shorts and does not want to change them or shower. OT does encourage pt. to change clothing, and he does agree. Requies max x 2 for sit-stand, and PT is able to stand with pt. with min/mod needed, while OT doffs shorts and cleanses rear yo area. Pt. sits back down and OT doffs shorts. Pt. able to doff dirty shirt and don clean shirt. Dons clean gown over shirt. PT leaves and OT assesses foot due to reported tenderness. Nursing notified of red area on heel. Foot positioned to float heel while in chair. Pt. up in chair with all needs met. Education OT Patient Education: Correct positioning, Modified ADL techniques, Progress toward Goal/Update tx plan, Purpose of tx/functional activities, Reviewed precautions, Rehab process, Transfer techniques Teaching Recipient: Patient Teaching Methods: Demonstration, Discussion Response to Teaching: Verbalize Understanding, Return Demonstration, Reinforcement Needed OT Short Term Goals Short Term Goals Time Frame: Dec 11, 2020 Eatin Oral hygiene: 88 Toileting hygiene: 2 Shower/bathe self: 3 Upper body dressin Lower body dressin Putting on/taking off footwear: 6 OT Skilled Nursing Goals Public Relations Senior Associate Goals Time Frame: Dec 25, 2020 Eating (QC): 6 Oral Hygiene (QC): 6 Toileting Hygiene (QC): 5 Shower/Bathe Self (QC): 5 Upper Body Dressing (QC): 6 Lower Body Dressing (QC): 4 On/Off Footwear (QC): 6 Additional Goals: 1-Demonstrate ADL Tasks, 2-Verbalize Understanding, 3- ImproveStrength/Erick 1=Demonstrate adherence to instructed precautions during ADL tasks. 2=Patient will verbalize/demonstrate understanding of assistive devices/modif ications for ADL. 3=Patient will improve strength/tolerance for activity to enable patient to perform ADL's. OT Education/Plan Problem List/Assessment Assessment: Decreased Activ Tolerance, Decreased UE Strength, Dependent Transfers, Impaired Bed Mobility, Impaired Funct Balance, Impaired I ADL's, Impaired Self-Care Skills Discharge Recommendations Plan/Recommendations: Continue POC Therapy Discharge Recommendati: 24 Hour Supervision Treatment Plan/Plan of Care Treatment,Training & Education: Yes Patient would benefit from OT for education, treatment and training to promote independence in ADL's, mobility, safety and/or upper extremity function for ADL's. Plan of Care: ADL Retraining, Caregiver Training, Functional Mobility, Group Exercise/Act as Ind, UE Funct Exercise/Act Treatment Duration: Dec 25, 2020 Frequency: Modified Program (IRF) Estimated Hrs Per Day: 1.5 hours per day Agreement: Yes Rehab Potential: Fair Time/GCodes Start Time: 08:20 Stop Time: 09:10 Total Time Billed (hr/min): 50 Billed Treatment Time 1462-6970 1, FA x 15minutes, ADL x 35minutes [id number] Co-treatment with PT- Please see above note for designated goals. CAMILA SINCLAIR OT Jan 07, 2021 09:34
[2021-01-07] MEDS ORDERED: NS IV 500 ML 500 ML IV SCH (11:15)
[2021-01-07] MEDS: APIXABAN 5 MG (ELIQUIS) TABLET PO SCH (11:16)
--- NOTE | 2021-01-07 11:16 | PM&R Progress Note ---
Subjective HPI/CC On Admission Date Seen by Provider: Jan 07, 2021 Time Seen by Provider: 11:30 Subjective/Events-last exam 01/07/21: Patient more drowsy today. Started septic w/u and lactic acid was elevated at 2.1 so started gentle IVF and consulted Dr Zuñiga and started on abx empirically for bilateral ATX vs infiltrate Agreeable for transfusion now so ordered 2 units and will give iron infusion tomorrow also Complex case overall OHA is held Hemoccult stools ordered 01/06/21: Hgb 7.4 and discussed placement of midline for transfusion of 1 unit and/or iron infusions and after a great deal of thought he declines both Patient doing well otherwise Fatigue about the same NHP Occult stool ordered 01/05/21: Complains about sleeping all the time Changed Gabapentin to BID instead of TID Large BM daily Mildly low BP noted Tremor reported to RN but not discussed with me 01/04/21: Sugars improved 113 this am Foot pain improved Indocin taper maintained 01/03/21: Uric acid ordered by Dr Rob Toe is better Decubitus ulcer is improved No pain otherwise Severe dyspnea when active but he seems to not be bothered about it 01/02/21: Left foot pain occurred last night Right great toe improved since Indocin BM+ NHP at DC 01/01/21: Pt was slightly hypotensive today but cardiology is managing Indocin is helping the gout in his foot Bowels are moving 3.5 liters maintained DC planned for 01/08/21 to NH 12/31/20: Dr. Rob diagnosed gout so Indocin was started Remains on 3.5 liters of O2 Scared to not use the sit to stand 12/30/20: Bowels moved yesterday Doing pretty well Right great toe pain so consulted Dr. Rob Uric acid will be added and X-ray of the right foot 12/29/20: Patient frustrated BM yesterday Sputum produced and sent down to lab? Sugar 196 No pain meds required today 12/28/20: Alevan on his buttock Coughed up some green sputum 3 times yesterday but lungs are clear BM large today Oxycodone for his left foot pain helped 2+ edema Sugar 167 He is very pessimistic about his overall progress which cannot be redirected 12/27/20: Transferring without the site to stand now Improved overall BM+ Alevan vs. butt paste on buttock He sits in chair all day long on computer 12/26/20: Insurance declined skilled for now Standing and actually progressing well 2L/min and doing well DC scheduled APAP TID 12/25/20: Awaiting shelter placement Actually working pretty well with therapy Denies any significant new pain Blurry vision still continues Didnt sleep real well last night 12/24/20: Eyes were better but the more he works on the computer the blurry issues return DC is on hold due to NH processes 12/23/20: Pt doing pretty well Buttock decubitus ulcer needs further treatment Discharge planned for tomorrow Hemaglobin 9.3 Midline will be discontinued at his request 12/22/20: Home O2 evaluation tomorrow for DC Wednesday DM education will be provided DC planned for NH 12/21/20: Doing well Slept well BM today Edema improved on KRIS's Decubitus ulcers worsened due to sitting in chair all day long IS use increased 12/20/20: Now has daily complaints about minor things since he was notified last week he would need a [place] Nurse broke his grabber so will obtain replacement for him Butt paste placed on buttocks Stage 2 No other issues 12/19/20: No major issues Bowels are moving retirement placement on Wednesday12/18/20: Discharge Wednesday to the shelter Family training did not go well Son was there but did not engage Insists on going home but that would not be a possibility Placing Alevin on buttock 12/17/20: Family training today at 10:00 Still has a stage 2 buttock decubitus ulcer Overall feels like he is doing much better Son at bedside when I rounded later today and he was evaluating his progress 12/16/20: Pt doing pretty well Bowels moved today Left midline is functioning Blood sugar 147 Stage 2 decubitus ulcer on the buttock Working really hard to stand 12/15/20: Overall doing well No issues BM+ No falls 12/14/20: Doing well BM+ Dyspnea still continues No pain 12/13/20: Patient more alert today and energized No pain reported Oxycodone helps the foot pain Participating with therapy 12/12/20: Pt doing a lot better Having a lot of pain, takes Oxycodone for his foot and leg pain Bowels are moving Sleeping better Pt very well could require a shelter since he lives alone and is just not progressing well 12/11/20: No major issues Pretty much has plateaued and not made much progress with ambulation Epistaxis of the left nostril Nasal sprays will be continued Re-check and check with insurance coverage but he very well may need to be in a shelter 12/10/20: Pt doing pretty well Slept on and off last night Remains on 4 liters of O2 Swelling in his feel is pretty minimal Did not use his BiPAP last night and that likely is the cause of not sleeping well 12/09/20: Pt slept pretty well Bowels are moving PLTs are 97, 000 Normal WBC down from 21 when he first arrived Denies any significant issues Trying to get strong enough to walk 12/08/20: Slept well last night Remeron and Melatonin has helped him a lot Sinus tachy last night BM 12/06/20 so laxatives given No other issues 12/07/20: Slept better Yonker provided for phlem HR 60 Appreciate Cardiology 4L/min O2 BM 12/06/20 12/06/20: HR 122 Cardiology consulted Sugar 54 so decreasing insulin BM++ No pain reported No sleeping well so added hypnotics of Melatonin and Remeron 12/05/20: Patient doing well Worn out from fatigue Sugars are ok No pain reported Tachycardic so consulting Dr Carranza Midline was accidently pulled out so need a new one placed Checked meds and labs Review of Systems General: Fatigue, Malaise Pulmonary: Dyspnea Neurological: Weakness Focused Exam Lactate Level 01/07/21 12:00: Lactic Acid Level 2.14*H 01/07/21 14:15: Lactic Acid Level 1.71 Objective Exam Vital Signs Vital Signs Date Time Temp Pulse Resp B/P (MAP) Pulse Ox O2 Delivery O2 Flow Rate FiO2 01/08/21 03:55 36.2 102 17 119/70 (86) 96 NIV CPAP 4.00 Capillary Refill : General Appearance: No Apparent Distress, WD/WN, Anxious, Chronically ill, Obese HEENT: PERRL/EOMI, Normal ENT Inspection, Pharynx Normal Neck: Full Range of Motion, Normal Inspection, Non Tender, Supple, Carotid Bruit Respiratory: Chest Non Tender, Lungs Clear, No Accessory Muscle Use, No Respiratory Distress, Decreased Breath Sounds Cardiovascular: Regular Rate, Rhythm, No Gallop, No JVD, No Murmur, Normal Peripheral Pulses Gastrointestinal: Normal Bowel Sounds, No Organomegaly, No Pulsatile Mass, Non Tender, Soft Back: Normal Inspection, No CVA Tenderness, No Vertebral Tenderness Extremity: Normal Capillary Refill, Normal Inspection, Normal Range of Motion, Non Tender, No Calf Tenderness, Pedal Edema Neurologic/Psychiatric: Alert, Oriented x3, No Motor/Sensory Deficits, blast hole driller II- XII Norm as Tested, Depressed Affect, Motor Weakness Skin: Normal Color, Warm/Dry Lymphatic: No Adenopathy Results/Procedures Lab Laboratory Tests 01/07/21 11:35 01/07/21 11:59 01/08/21 06:10 Patient resulted labs reviewed. FIM Transfers Therapy Code Descriptions/Definitions Functional [place] Measure: 0=Not Assessed/NA 4=Minimal Assistance 1=Total Assistance 5=Supervision or Setup 2=Maximal Assistance 6=Modified [place] 3=Moderate Assistance 7=Complete IndependenceSCALE: Activities may be completed with or without assistive devices. 6-Hmxujfapde-zlcvfsm completes the activity by him/herself with no assistance from a helper. 5-Set-up or Clean-up Assistance-helper sets up or cleans up; patient completes a ctivity. [place] assists only prior to or following the activity. 4-Supervision or Touching Assistance-helper provides verbal cues and/or touching/steadying and/or contact guard assistance as patient completes activity. Assistance may be provided throughout the activity or intermittently. 3-Partial/Moderate Assistance-helper does LESS THAN HALF the effort. [place] lifts, holds or supports trunk or limbs, but provides less than half the effort. 2-Substantial/Maximal Assistance-helper does MORE THAN HALF the effort. [place] lifts or holds trunk or limbs and provides more than half the effort. 7-Kcpjwfkun-ddxgnd does ALL the effort. Patient does none of the effort to complete the activity. Or, the assistance of 2 or more helpers is required for the patient to complete the activity. If activity was not attempted, code reason: 7-Patient Refused. 9-Not Applicable-not attempted and the patient did not perform the activity before the current illness, exacerbation or injury. 10-Not Attempted due to Environmental Limitations-(lack of equipment, weather restraints, etc.). 88-Not Attempted due to Medical Conditions or Safety Concerns. Roll Left to Right (QC): 2 Sit to Lying (QC): 2 Sit to Stand (QC): 1 Chair/Qua-ba-Qydud Xfer(QC): 3 Car Transfer (QC): 88 Gait Training Does the Patient Walk?: Yes Distance: 15' Walk 10 feet (QC): 4 Walk 50 ft with 2 Turns(QC): 88 Walk 150 ft (QC): 88 Walking 10ft/uneven surface-QC: 88 Gait Persons Needed: 1 Gait Assistive Device: FWW Wheelchair Training Does the Pt Use a Wheelchair?: Yes Wheel 50 ft with 2 turns (QC): 4 Wheel 150 ft (QC): 4 Type of Wheelchair: Manual Stair Training #of Steps: 1 1 Step (curb) (QC): 88 4 Steps (QC): 88 12 Steps (QC): 88 Stairs: Pattern: Step to Balance Picking up an Object (QC): 88 ADL-Treatment Eating (QC): 6 Oral Hygiene (QC): 6 Bathing Location: L Arm, R Arm, L Upper Leg, R Upper Leg, Chest, Abdomen, Perineal Area Shower/Bathe Self (QC): 7 (Pt. continues to decline showering this date. States, "I just don't feel like it.") Upper Body Dressing (QC): 4 Lower Body Dressing (QC): 1 (Assist in stance by PT for upright posture, and OT doffed shorts down over hips.) On/Off Footwear (QC): 2 Toileting Hygiene (QC): 1 (Pt. incontinent of bowel and was unaware. PT assisted pt. 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 Obesity DM Neuropathy Anemia 7.4 on 01/06/21 but declined transfusion and iron infusions until changing mind s/p 2 units blood 01/07/21 O2 dependence Right great toe pain consulted Dr Rob 12/30/20 dx with gout and placed on Indocin Early sepsis 01/07/21 due to PNA placed on abx and IVF Plan: IRF protocol Monitor O2 O2 supplement 12/05/20: O2 maintained IRF protocol Cardiology consultation appreciated Midline replacement 12/06/20: Cardiology consult appreciated Decrease insulin Midline Monitor closely 12/07/20: Monitor closely O2 wean Increase acitivity Maintain Remeron and Melatonin 12/08/20: Monitor closely Check labs in am Monitor tachycardia Remeron and Melatonin 12/09/20: Labs normal Improved strength Weaning O2 Monitor insomnia Increase insulin 12/10/20: Monitor O2 Increase strength Severe myopathy of legs 12/11/20: Difficult to progress Continue therapy May need NHP 12/12/20: Pain control with Oxycodone Monitor bowels Monitor O2 12/13/20: Monitor pain Wean O2 CPAP mask seems to be working better 12/14/20: Improved status Stood up today with help O2 12/15/20: Wean O2 Monitor ambulation CPAP at night 12/16/20: Monitor progress Decubitus ulcer management Monitor BP 12/17/20: Family education/training today Monitor O2 CPAP with O2 12/18/20: Monitor O2 NH Wednesday Continue to work on stamina 12/19/20: Monitor O2 CPAP 12/20/20: Decubitus ulcer management Monitor O2 Replace grabber 12/21/20: Monitor O2 KRIS CPAP 12/22/20: [place] Wednesday to [place] Home O2 evaluation 12/23/20: DC midline DC tomorrow to [place] Needs eye exam soon for blurry vision 12/24/20: DC on hold Monitor O2 12/25/20: Continue therapy Making significant progress 12/26/20: Monitor progress Standing now May be able to DC home? 12/27/20: Much improved status Improved standing No pain reported 12/28/20: Walked a bit but he gets discouraged so quickly Pain controlled in his foot Monitor cough 12/29/20: Started scheduled insulin AC Adjusted Levemir to 10 units HS since sugars are low in am and maintained Levemir 20 units at bfast Check labs in am 12/30/20: Right great toe pain eval by Dr Rob Check uric acid and xray Monitor sugar 12/31/20: Indocin for gout Monitor closely Pain control 01/01/21: Gout treatment Monitor closely Pain control IRF protocol 01/02/21: O2 Gout treatment Monitor dyspnea 01/03/21: Gout treatment Monitor O2 and dyspnea 01/04/21: O2 wean Monitor foot pain Indocin taper 01/05/21: Monitor low BP Change Gabapentin to BID from TID 01/06/21: Hgb 7.4 but patient declines transfusion and iron infusions Monitor O2 01/07/21: Blood transfusions [address] Zuñiga consultation Cardiology appreciated Hold OAC (1) COVID-19 (2) RICHY on CPAP (3) Obesity (4) Diabetes (5) Hypertension (6) Edema (7) Neuropathy (8) Anemia (9) Advanced age (10) DEANNA Taveras DO Jan 07, 2021 11:16
--- NOTE | 2021-01-07 11:20 | Progress Note - Cardiology ---
Cardiology SOAP Progress Note Subjective: C/O fatigue this morning States he is tired, feeling generally unwell Objective: I&O/Vital Signs 01/07/21 01/07/21 01/07/21 01/07/21 20:00 20:00 20:23 21:14 Temp 36.2 36.2 Pulse 93 93 Resp 18 18 B/P (MAP) 133/73 (93) 133/73 Pulse Ox 95 95 95 O2 Delivery Nasal Cannula Nasal Cannula Nasal Cannula Nasal Cannula O2 Flow Rate 5.00 4.00 5.00 3.00 01/07/21 01/07/21 01/08/21 01/08/21 22:52 23:22 01:00 02:54 Temp 37.2 Pulse 104 109 98 Resp 18 18 B/P (MAP) 121/69 121/69 (86) Pulse Ox 96 96 95 O2 Delivery NIV Bilevel Nasal Cannula NIV CPAP O2 Flow Rate 2.00 4.00 3.00 01/08/21 03:55 Temp 36.2 Pulse 102 Resp 17 B/P (MAP) 119/70 (86) Pulse Ox 96 O2 Delivery NIV CPAP O2 Flow Rate 4.00 01/08/21 00:00 Intake Total 2760 ml Output Total 1450 ml Balance 1310 ml Constitutional: AAO x 3 Respiratory: chest is bilaterally symmetric, other (fair to good, bilateral air entry) Cardiovascular: irregularly irregular, tachycardia, S1 and S2, systolic murmur (soft YANET at card base) Gastrointestional: soft, audible bowel sounds Extremities: other (mild to mod, bilateral leg edema) Neurologic/Psychiatric: no motor/sensory deficits, oriented x 3, other (moves all limbs equally) Results/Procedures: Labs Laboratory Tests 01/07/21 10:49: Glucometer 157H 01/07/21 11:35: Sodium Level 140, Potassium Level 4.0, Chloride Level 103, Carbon Dioxide Level 24, Anion Gap 13, Blood Urea Nitrogen 15, Creatinine 1.12, Estimat Glomerular Filtration Rate > 60, BUN/Creatinine Ratio 13, Glucose Level 154H, Calcium Level 9.0, Corrected Calcium 9.7, Total Bilirubin 0.9, Aspartate Amino Transf (AST/SGOT) 14, Alanine Aminotransferase (ALT/SGPT) 17, Alkaline Phosphatase 57, Total Protein 6.3L, Albumin 3.1L, Procalcitonin 0.23H 01/07/21 11:59: White Blood Count 7.8, Red Blood Count 2.57L, Hemoglobin 7.5L, Hematocrit 24L, Mean Corpuscular Volume 95, Mean Corpuscular Hemoglobin 29, Mean Corpuscular Hemoglobin Concent 31L, Red Cell Distribution Width 20.4H, Platelet Count 182, Mean Platelet Volume 8.7L, Immature Granulocyte % (Auto) 3, Neutrophils (%) (Auto) 72, Lymphocytes (%) (Auto) 9L, Monocytes (%) (Auto) 16H, Eosinophils (%) (Auto) 0, Basophils (%) (Auto) 0, Neutrophils # (Auto) 5.6, Lymphocytes # (Auto) 0.7L, Monocytes # (Auto) 1.3H, Eosinophils # (Auto) 0.0, Basophils # (Auto) 0.0, Immature Granulocyte # (Auto) 0.2H 01/07/21 12:00: Lactic Acid Level 2.14*H, B-Type Natriuretic Peptide 103.9H 01/07/21 12:12: Blood Gas Puncture Site R RAD, Blood Gas Patient Temperature 36.4, Arterial Blood pH 7.46H, Arterial Blood Partial Pressure CO2 36, Arterial Blood Partial Pressure O2 82, Arterial Blood HCO3 25, Arterial Blood Total CO2 26.3, Arterial Blood Oxygen Saturation 98, Arterial Blood Base Excess 1.6, Jeffy Test YES-POS, Blood Gas Ventilator Setting NO, Blood Gas Inspired Oxygen 4L 01/07/21 14:15: Lactic Acid Level 1.71 01/07/21 15:45: Urine Color YELLOW, Urine Clarity CLEAR, Urine pH 6.0, Urine Specific [place] 1.020, Urine Protein NEGATIVE, Urine Glucose (UA) NEGATIVE, Urine Ketones NEGATIVE, Urine Nitrite NEGATIVE, Urine Bilirubin NEGATIVE, Urine Urobilinogen 1.0, Urine Leukocyte Esterase TRACEH, Urine RBC (Auto) NEGATIVE, Urine RBC NONE, Urine WBC 5-10H, Urine Squamous Epithelial Cells 0-2, Urine Crystals NONE, Urine Bacteria NEGATIVE, Urine Casts NONE, Urine Mucus NEGATIVE, Urine Culture Indicated NO 01/07/21 16:15: Glucometer 136H 01/07/21 20:02: Glucometer 216H 01/08/21 05:44: Glucometer 88 01/08/21 06:10: White Blood Count 8.2, Red Blood Count 3.11L, Hemoglobin 9.1#L, Hematocrit 29L, Mean Corpuscular Volume 92, Mean Corpuscular Hemoglobin 29, Mean Corpuscular Hemoglobin Concent 32, Red Cell Distribution Width 19.5H, Platelet Count 172, M jonathan Platelet Volume 9.1, Sodium Level 140, Potassium Level 3.7, Chloride Level 103, Carbon Dioxide Level 25, Anion Gap 12, Blood Urea Nitrogen 13, Creatinine 1.17, Estimat Glomerular Filtration Rate 60, BUN/Creatinine Ratio 11, Glucose Level 88, Calcium Level 8.4L, Corrected Calcium 9.2, Total Bilirubin 1.0, Aspartate Amino Transf (AST/SGOT) 14, Alanine Aminotransferase (ALT/SGPT) 15, Alkaline Phosphatase 55, Total Protein 6.1L, Albumin 3.0L, Procalcitonin 0.21H A/P: Assessment: Gen malaise, probably at least partly due to marked anemia Low blood pressure Atrial fibrillation with increased HR today, likely secondary to anemia Critical illness myopathy, COVID-19 RICHY, treated with CPAP, managed by Dr Dawkins Anemia of undetermined etiology Plan: * Tachycardic today, likely secondary to anemia * Previously hypotensive on even low dose BB * Can start Cardizem CD for rate control * Check H/H today * Stop ASA - he is not reporting any h/o cardiac stents * Advise source of blood loss be determined and treated * Can hold OAC if necessary short term * Adivsed blood transfusion for symptomatic anemia. He is agreeable today. Dr Dawkins is to evaluate and treat anemia * Monitor labs from time to time DONA VALIENTE Jan 07, 2021 11:20
--- NOTE | 2021-01-07 11:43 | Physical Therapy Daily Note ---
PT Daily Note-Current Subjective Patient in bed pre tx, agrees to PT, has no complaints of pain but has a tender left heel. Patient is very drowsy, cannot keep eyes open, sleeps during tx. Appearance Patient in bed post tx with nurse call, phone, tray, all needs met. Mental Status Patient Orientation: Person, Place, Situation Attachments: Oxygen Transfers SCALE: Activities may be completed with or without assistive devices. 2-Doqgacfznz-xumvplu completes the activity by him/herself with no assistance from a helper. 5-Set-up or Clean-up Assistance-helper sets up or cleans up; patient completes activity. [place] assists only prior to or following the activity. 4-Supervision or Touching Assistance-helper provides verbal cues and/or touchi ng/steadying and/or contact guard assistance as patient completes activity. Assistance may be provided throughout the activity or intermittently. 3-Partial/Moderate Assistance-helper does LESS THAN HALF the effort. [place] lifts, holds or supports trunk or limbs, but provides less than half the effort. 2-Substantial/Maximal Assistance-helper does MORE THAN HALF the effort. [place] lifts or holds trunk or limbs and provides more than half the effort. 9-Pbphgacik-fzhrtv does ALL the effort. Patient does none of the effort to complete the activity. Or, the assistance of 2 or more helpers is required for the patient to complete the activity. If activity was not attempted, code reason: 7-Patient Refused. 9-Not Applicable-not attempted and the patient did not perform the activity before the current illness, exacerbation or injury. 10-Not Attempted due to Environmental Limitations-(lack of equipment, weather restraints, etc.). 88-Not Attempted due to Medical Conditions or Safety Concerns. Weight Bearing Full Weight Bearing Full Weight Bearing Treatments BLE stretching in all planes, heel float with pillow when done since he has soreness there. Assessment Current Status: Poor Progress patient very drowsy, sleepy, cannot keep eyes open PT Short Term Goals Short Term Goals Time Frame: Dec 11, 2020 Roll Left & Right: 4 (met) Sit to lyin (met) Lying to sitting on side of be: 4 (met) Sit to stand: 3 Chair/oqs-rk-rijhm transfer: 3 Walk 10 feet: 3 Walk 50 feet with two turns: 3 PT Penitentiary Goals Penitentiary Goals PT Machine Stripper Cutter Goals Time Frame: Jan 01, 2021 Roll Left & Right (QC): 6 Sit to Lying (QC): 6 Lying-Sitting on Side/Bed(QC): 6 Sit to Stand (QC): 6 Chair/Agt-dz-Vdpwf Xfer(QC): 6 Toilet Transfer (QC): 6 Car Transfer (QC): 6 Does the Patient Walk: No and Walking Goal IS indicated Walk 10 feet (QC): 6 Walk 50ft with 2 Turns (QC): 6 Walk 150 ft (QC): 6 Walking 10ft on Uneven Surface: 4 1 Step (curb) (QC): 4 4 Steps (QC): 4 12 Steps (QC): 4 Picking up an Object (QC): 5 Does the Pt use WC or Scooter?: No Wheel 50 feet with 2 turns (QC: 9 Wheel 150 feet: 9 PT Plan Problem List Problem List: Activity Tolerance, Functional Strength, Safety, Balance, Gait, Transfer, Bed Mobility, ROM Treatment/Plan Treatment Plan: Continue Plan of Care Treatment Plan: Bed Mobility, Education, Functional Activity Erick, Functional Strength, Group Therapy, Gait, Safety, Therapeutic Exercise, Transfers Treatment Duration: Jan 01, 2021 Frequency: At least 5 of 7 days/Wk (IRF) Estimated Hrs Per Day: Other (see notation) Patient and/or Family Agrees t: Yes Safety Risks/Education Patient Education: Correct Positioning, Safety Issues Teaching Recipient: Patient Teaching Methods: Demonstration, Discussion Response to Teaching: Reinforcement Needed Time/GCodes Time In: 1130 Time Out: 1145 Total Billed Treatment Time: 15 Total Billed Treatment 1 visit EX JENSEN SNIDER PT Jan 07, 2021 11:43
[2021-01-07 11:59] LABS: ALBUMIN 3.1 GM/DL (3.2-4.5); CHLORIDE 103 MMOL/L (98-107); SODIUM 140 MMOL/L (135-145)
[2021-01-07 12:02] LABS: GLUCOSE 154 MG/DL (70-105); TOTAL PROTEIN 6.3 GM/DL (6.4-8.2)
[2021-01-07 12:03] LABS: BILIRUBIN,TOTAL 0.9 MG/DL (0.1-1.0); CARBON DIOXIDE 24 MMOL/L (21-32)
[2021-01-07 12:05] LABS: ALKALINE PHOSPHATASE 57 U/L (40-136); CREATININE SERUM 1.12 MG/DL (0.60-1.30); GFR ESTIMATED > 60
[2021-01-07 12:06] LABS: BUN/CREATININE RATIO 13
[2021-01-07 12:08] LABS: ALANINE AMINOTRANSFERASE 17 U/L (0-55)
[2021-01-07 12:17] LABS: ABG BASE EXCESS 1.6 MMOL/L (-2.5-2.5); ABG OXYGEN SATURATION 98 % (94-100); ABG PCO2 36 MMHG (35-45); ABG PH 7.46 (7.37-7.43); ABG PO2 82 MMHG (79-93); ABG TCO2 26.3 MMOL/L (21.0-31.0)
[2021-01-07 12:19] LABS: BASOPHILS % (AUTO) 0 % (0-10); EOSINOPHILS % (AUTO) 0 % (0-10); HEMATOCRIT 24 % (40-54); HEMOGLOBIN 7.5 g/dL (13.3-17.7); LYMPHOCYTES # (AUTO) 0.7 10^3/uL (1.0-4.0); LYMPHOCYTES % (AUTO) 9 % (12-44); MEAN CORPUSCULAR HEMOGLOBIN 29 pg (25-34); MEAN CORPUSCULAR HGB CONC 31 g/dL (32-36); MEAN CORPUSCULAR VOLUME 95 fL (80-99); MEAN PLATELET VOLUME 8.7 fL (9.0-12.2); MONOCYTES # (AUTO) 1.3 10^3/uL (0.0-1.0); MONOCYTES % (AUTO) 16 % (0-12); NEUTROPHILS # (AUTO) 5.6 10^3/uL (1.8-7.8); NEUTROPHILS % (AUTO) 72 % (42-75); PLATELET COUNT 182 10^3/uL (130-400); WHITE BLOOD COUNT 7.8 10^3/uL (4.3-11.0)
[2021-01-07 12:21] LABS: ALLENS TEST YES-POS; INSPIRED O2 4L; PATIENT TEMP 36.4; VENTILATOR NO
--- NOTE | 2021-01-07 12:44 | Diagnostic Imaging Report ---
EXAMINATION: Chest 1 view. HISTORY: Hypoxia. COMPARISON: Chest radiograph 12/05/2020. FINDINGS: Stable enlargement of the cardiac silhouette. Unchanged interstitial opacities throughout both lungs. Stable airspace opacities within the lower lungs. No pneumothorax. Blunting of the bilateral costophrenic angles. Surgical changes from right shoulder arthroplasty. IMPRESSION: 1. Cardiomegaly with unchanged interstitial opacities throughout both lungs which can be seen with pulmonary edema or atypical infection. 2. Bibasilar atelectasis or consolidation. Dictated by: Dictated on workstation # [id number]
[2021-01-07] MEDS ORDERED: NS IV 1000 ML 1,000 ML IV SCH (12:45)
--- NOTE | 2021-01-07 13:50 | Occ Therapy Progress Note ---
Therapy Progress Note Per nursing, pt. on hold this p.m. Pt. having labs drawn. Not feeling well and is in bed. Nursing having difficulty arousing pt. for lunch or other activities. 134CAMILA EISENBERG OT Jan 07, 2021 13:49
[2021-01-07] MEDS ORDERED: PHARMACY TO DOSE IV SCH (14:00)
[2021-01-07] MEDS ORDERED: PIPERACILLIN/TAZO 4.5 GM/NS 100 ML IV NR ×2 (14:00)
[2021-01-07] MEDS ORDERED: VANCOMYCIN 2000 MG/NS 500 ML IVPB IV NR ×2 (14:09)
--- NOTE | 2021-01-07 14:54 | Progress Note - Cardiology ---
Cardiology SOAP Progress Note Subjective: Somnolent and difficult to awaken. Does not report any symptoms Objective: I&O/Vital Signs 01/07/21 01/07/21 01/07/21 01/07/21 06:15 06:49 06:50 09:00 Temp 37.0 Pulse 114 Resp 18 B/P (MAP) 143/86 (105) Pulse Ox 93 95 95 O2 Delivery Nasal Cannula Nasal Cannula Nasal Cannula Nasal Cannula O2 Flow Rate 4.00 3.00 3.00 4.00 01/07/21 01/07/21 13:30 13:50 Temp 36.4 36.5 Pulse 102 98 Resp 20 20 B/P (MAP) 107/59 118/59 Pulse Ox 97 98 O2 Delivery Nasal Cannula Nasal Cannula O2 Flow Rate 4.00 4.00 01/07/21 00:00 Intake Total 800 ml Output Total 600 ml Balance 200 ml Constitutional: other (somnolent) Respiratory: chest is bilaterally symmetric, other (fair to good, bilateral air entry) Cardiovascular: irregularly irregular, tachycardia, S1 and S2, systolic murmur (soft YANET at card base) Gastrointestional: soft, audible bowel sounds Extremities: other (mild to mod, bilateral leg edema), significant edema (bilaterla) Neurologic/Psychiatric: other (somnolent, seems to be able to move all limbs) Skin: No rash on exposed areas, No ulcerations on exposed areas Results/Procedures: Labs Laboratory Tests 01/06/21 15:31: Glucometer 124H 01/06/21 20:29: Glucometer 128H 01/07/21 06:02: Glucometer 118H 01/07/21 10:49: Glucometer 157H 01/07/21 11:35: Sodium Level 140, Potassium Level 4.0, Chloride Level 103, Carbon Dioxide Level 24, Anion Gap 13, Blood Urea Nitrogen 15, Creatinine 1.12, Estimat Glomerular Filtration Rate > 60, BUN/Creatinine Ratio 13, Glucose Level 154H, Calcium Level 9.0, Corrected Calcium 9.7, Total Bilirubin 0.9, Aspartate Amino Transf (AST/SGOT) 14, Alanine Aminotransferase (ALT/SGPT) 17, Alkaline Phosphatase 57, Total Protein 6.3L, Albumin 3.1L, Procalcitonin 0.23H 01/07/21 11:59: White Blood Count 7.8, Red Blood Count 2.57L, Hemoglobin 7.5L, Hematocrit 24L, Mean Corpuscular Volume 95, Mean Corpuscular Hemoglobin 29, Mean Corpuscular Hemoglobin Concent 31L, Red Cell Distribution Width 20.4H, Platelet Count 182, Mean Platelet Volume 8.7L, Immature Granulocyte % (Auto) 3, Neutrophils (%) (Auto) 72, Lymphocytes (%) (Auto) 9L, Monocytes (%) (Auto) 16H, Eosinophils (%) (Auto) 0, Basophils (%) (Auto) 0, Neutrophils # (Auto) 5.6, Lymphocytes # (Auto) 0.7L, Monocytes # (Auto) 1.3H, Eosinophils # (Auto) 0.0, Basophils # (Auto) 0.0, Immature Granulocyte # (Auto) 0.2H 01/07/21 12:00: Lactic Acid Level 2.14*H, B-Type Natriuretic Peptide 103.9H 01/07/21 12:12: Blood Gas Puncture Site R RAD, Blood Gas Patient Temperature 36.4, Arterial Blood pH 7.46H, Arterial Blood Partial Pressure CO2 36, Arterial Blood Partial Pressure O2 82, Arterial Blood HCO3 25, Arterial Blood Total CO2 26.3, Arterial Blood Oxygen Saturation 98, Arterial Blood Base Excess 1.6, Jeffy Test YES-POS, Blood Gas Ventilator Setting NO, Blood Gas Inspired Oxygen 4L 01/07/21 14:15: Lactic Acid Level 1.71 Laboratory Tests 01/06/21 05:27 01/07/21 11:35 01/07/21 11:59 A/P: Assessment: Low blood pressure, consider sepsis, Dr Dawkins managing Gen malaise, probably at least partly due to marked anemia Paroxysmal atrial fibrillation, not suitable for anticoag at this time because of anemia the etiology of which is undetermined and which is requiring blood transfusions Critical illness myopathy, 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 Clinical condition appears to have deteriorated. Dr Dawkins managing * Sepsis is a consideration. Dr Dawkins has initiated antibiotic therapy * Blood transfusion recommended (to bring hgb to > 10). This will likely help heart rate and malaise * Considerable swelling noted. Advise furosemide between units * Continue iv fluids * Monitor labs * Echo to eval cardiac function KENDRA LINDSAY MD FACP FAC CCDS Jan 07, 2021 14:54
[2021-01-07] MEDS ORDERED: FUROSEMIDE 40 MG/4 ML INJ (LASIX) IVP ONE (15:30)
[2021-01-07 15:56] LABS: BILIRUBIN,URINE NEGATIVE (NEGATIVE); CLARITY,URINE CLEAR; COLOR,URINE YELLOW; GLUCOSE, URINE (UA) NEGATIVE (NEGATIVE); KETONES,URINE NEGATIVE (NEGATIVE); LEUKOCYTE ESTERASE ,URINE TRACE (NEGATIVE); NITRITE,URINE NEGATIVE (NEGATIVE); PROTEIN,URINE NEGATIVE (NEGATIVE)
[2021-01-07] MEDS: LACTATED RINGERS 1,000 ML IV SCH ×2 (15:58→23:27)
[2021-01-07 16:08] LABS: BACTERIA,URINE NEGATIVE /HPF; SQUAMOUS EPITHELIAL CELL,UR 0-2 /HPF
[2021-01-07] MEDS: RT-ALBUTEROL/IPRATROPIUM 3 ML (DUONEB) VIAL IH SCH ×2 (18:14→21:14)
[2021-01-07] MEDS ORDERED: PIPERACILLIN/TAZOBACTAM (BULK) 4.5 GM in NS (IVPB) 100 ML IV SCH (20:00)
[2021-01-07] MEDS: MIRTAZAPINE 15 MG (REMERON) TAB PO SCH (20:26)
[2021-01-07] MEDS: MELATONIN 3 MG TABLET PO SCH (20:26)
[2021-01-07] MEDS: PIPERACILLIN/TAZOBACTAM (BULK) 4.5 GM in NS (IVPB) 100 ML IV SCH (23:07)
[2021-01-08] MEDS ORDERED: VANCOMYCIN 1500 MG/NS 500 ML IVPB IV SCH ×2 (02:00)
[2021-01-08] MEDS: RT-ALBUTEROL/IPRATROPIUM 3 ML (DUONEB) VIAL IH SCH ×4 (02:54→21:28)
[2021-01-08 03:55] VITALS: BP 119/70
[2021-01-08] MEDS: VANCOMYCIN 1500 MG/NS 500 ML IVPB IV SCH ×4 (04:02→18:12)
[2021-01-08] MEDS: inSUlin ASPART (NovoLOG) 1 UNIT/0.01 ML (CHARGE PER UNIT) SC SCH ×7 (05:46→20:11)
[2021-01-08] MEDS: PIPERACILLIN/TAZOBACTAM (BULK) 4.5 GM in NS (IVPB) 100 ML IV SCH ×3 (06:04→22:27)
[2021-01-08 06:22] LABS: HEMOGLOBIN 9.1 g/dL (13.3-17.7); MEAN PLATELET VOLUME 9.1 fL (9.0-12.2); WHITE BLOOD COUNT 8.2 10^3/uL (4.3-11.0)
[2021-01-08 06:37] LABS: POTASSIUM 3.7 MMOL/L (3.6-5.0)
[2021-01-08 06:38] LABS: CALCIUM 8.4 MG/DL (8.5-10.1)
--- NOTE | 2021-01-08 06:39 | Diagnostic Imaging Report ---
INDICATION: Pneumonia Upright portable chest shows cardiomegaly with mild pulmonary venous distention. There remains prominence of the interstitium with persistent patchy infiltrate in the left midlung lateral to the left hilum similar to the 01/07/2021 study. There is no effusion or pneumothorax. IMPRESSION: Stable chest. Dictated by: Dictated on workstation # [id number]
[2021-01-08 06:40] LABS: TOTAL PROTEIN 6.1 GM/DL (6.4-8.2)
[2021-01-08 06:43] LABS: CREATININE SERUM 1.17 MG/DL (0.60-1.30)
--- NOTE | 2021-01-08 07:13 | Pulmonary Consultation ---
History of Present Illness History of Present Illness Date Seen by Provider: Jan 08, 2021 Time Seen by Provider: 07:08 Date of Admission Allergies and Home Medications Allergies Coded Allergies: No Known Allergies (Verified Allergy, Unknown, 12/30/20) Home Medications Acetaminophen 650 Mg Tablet.er, 650 MG PO Q6H PRN for PAIN-MILD (1-4) OR TEMPATURE, (Reported) Apixaban 2.5 Mg Tablet, 2.5 MG PO BID, (Reported) Apixaban 5 Mg Tablet, 5 MG PO BID Prescribed by: DEANNA BOO on 12/23/202052 Ascorbic Acid 500 Mg Capsule, 1,000 MG PO BID, (Reported) TAKES 2 (500MG) CAPS Aspirin 81 Mg Tab.chew, 162 MG PO DAILY Prescribed by: DEANNA BOO on 12/23/202052 Cholecalciferol (Vitamin D3) 25 Mcg Tablet, 25 MCG PO DAILY Prescribed by: DEANNA BOO on 12/23/202052 Cyanocobalamin (Vitamin B-12) 250 Mcg Tablet, 250 MCG PO DAILY, (Reported) Finasteride 5 Mg Tablet, 5 MG PO DAILY, (Reported) Fluticasone Propionate 9.9 Ml Sleepy Eye.susp, 1 SPRAY NS DAILY, (Reported) Fluticasone/Umeclidin/Vilanter 1 Each Blst.w.dev, 1 EACH IH DAILY, (Reported) Gabapentin 300 Mg Capsule, 300 MG PO HS, (Reported) Gabapentin 100 Mg Capsule, 100 MG PO TID Prescribed by: DEANNA BOO on 12/23/202052 Insulin Aspart 100 Unit/1 Ml Susp, 0 UNIT SC ACHS Prescribed by: DEANNA BOO on 12/23/202052 Insulin Determir 1,000 Units/10 Ml Soln, 20 UNIT SQ BID Prescribed by: DEANNA BOO on 12/23/202052 Ipratropium/Albuterol Sulfate 3 Ml Ampul.neb, 3 ML IH Q6H PRN for SHORTNESS OF BREATH, (Reported) Losartan Potassium 25 Mg Tablet, 25 MG PO DAILY Prescribed by: DEANNA BOO on 12/23/202052 Melatonin 3 Mg Tablet, 6 MG PO HS Prescribed by: DEANNA BOO on 12/23/202052 Metoprolol Tartrate 50 Mg Tablet, 50 MG PO BID Prescribed by: DEANNA BOO on 12/23/202052 Mirtazapine 15 Mg Tab.rapdis, 15 MG PO HS Prescribed by: DEANNA BOO on 12/23/202052 Omeprazole 20 Mg Tablet.dr, 20 MG PO DAILY, (Reported) Ondansetron 4 Mg Tab.rapdis, 4 MG PO Q6H PRN for NAUSEA/VOMITING-1ST LINE Prescribed by: DEANNA BOO on 12/23/202052 Oxycodone Hcl 5 Mg Tab, 5 MG PO HS Prescribed by: DEANNA BOO on 12/23/202052 Oxycodone Hcl 5 Mg Tab, 5 MG PO Q8H PRN for PAIN-SEVERE (8-10) Prescribed by: DEANNA BOO on 12/23/202052 Pantoprazole Sodium 40 Mg Tablet.dr, 40 MG PO DAILY Prescribed by: DEANNA BOO on 12/23/202052 Prednisone 10 Mg Tab, 20 MG PO DAILY@0800 Prescribed by: DEANNA BOO on 12/23/202052 Saliva Stimulant Agents Comb.3 1 Each Sleepy Eye, 0 EACH MM QID Prescribed by: DEANNA BOO on 12/23/202052 Sennosides/Docusate Sodium 1 Each Tablet, 1 EA PO BID Prescribed by: DEANNA BOO on 12/23/202052 Simvastatin 40 Mg Tablet, 40 MG PO HS, (Reported) Sodium Chloride 44 Ml Sleepy Eye, 0 ML NS TID Prescribed by: DEANNA BOO on 12/23/202052 Tamsulosin HCl 0.4 Mg Cap, 0.4 MG PO DAILY, (Reported) Triamterene/Hydrochlorothiazid 1 Each Tablet, 1 EACH PO DAILY, (Reported) Zinc 50 Mg Tablet, 50 MG PO DAILY, (Reported) Zinc Oxide 28 Gm Oint, 0 GM TOP NEEDED PRN for DIAPER CHANGE Prescribed by: DEANNA BOO on 12/23/202052 Past Ptbtekd-Hemadm-Pbeilz Hx Past Med/Social Hx: Reviewed Nursing Past Med/Soc Hx, Reviewed and Corrections made Patient Social History Alcohol Use: Denies Use Smoking Status: Former Smoker Have you traveled recently?: No Alcohol Use?: Yes Immunizations Up To Date Date of Influenza Vaccine: Jul 23, 2020 Past Medical History Currently Using CPAP: Yes Currently Using BIPAP: No High Cholesterol, Hypertension Neuropathy Arthritis Diabetes, Insulin dep Review of Systems Time Seen by Provider: 07:12 Sepsis Event Evaluation Height, Weight, BMI Height: '" Weight: lbs. oz. kg; 33.68 BMI Method: Exam Exam Vital Signs Date Time Temp Pulse Resp B/P (MAP) Pulse Ox O2 Delivery O2 Flow Rate FiO2 01/08/21 03:55 36.2 102 17 119/70 (86) 96 NIV CPAP 4.00 01/08/21 02:54 95 NIV CPAP 3.00 01/08/21 01:00 98 01/07/21 23:22 37.2 109 18 121/69 (86) 96 Nasal Cannula 4.00 01/07/21 22:52 104 18 121/69 96 NIV Bilevel 2.00 01/07/21 21:14 95 Nasal Cannula 3.00 01/07/21 20:23 36.2 93 18 133/73 95 Nasal Cannula 5.00 01/07/21 20:00 36.2 93 18 133/73 (93) 95 Nasal Cannula 4.00 01/07/21 20:00 Nasal Cannula 5.00 01/07/21 19:00 100 01/07/21 18:18 94 Nasal Cannula 3.00 01/07/21 17:41 36.5 107 18 104/61 (75) 94 Nasal Cannula 4.00 01/07/21 15:54 36.4 96 20 119/80 98 Nasal Cannula 4.00 01/07/21 15:41 94 01/07/21 14:00 36.5 98 20 118/59 (78) 98 Nasal Cannula 4.00 01/07/21 13:50 36.5 98 20 118/59 98 Nasal Cannula 4.00 01/07/21 13:30 36.4 102 20 107/59 97 Nasal Cannula 4.00 01/07/21 09:00 Nasal Cannula 4.00 I & O 01/08/21 07:00 Intake Total 3495 ml Output Total 3475 ml Balance 20 ml Height & Weight Height: '" Weight: lbs. oz. kg; 33.68 BMI Method: General Appearance: No Apparent Distress, WD/WN, Anxious, Chronically ill, Obes e HEENT: PERRL/EOMI, Normal ENT Inspection, Pharynx Normal Neck: Full Range of Motion, Normal Inspection, Non Tender, Supple, Carotid Bruit Respiratory: Chest Non Tender, No Accessory Muscle Use, No Respiratory Distress, Decreased Breath Sounds Cardiovascular: Regular Rate, Rhythm, No Gallop, No JVD, No Murmur, Normal Peripheral Pulses Extremity: Normal Capillary Refill, Normal Inspection, Normal Range of Motion, Non Tender, No Calf Tenderness, Pedal Edema Neurologic/Psychiatric: Alert, Oriented x3, No Motor/Sensory Deficits, shoe turner II- XII Norm as Tested, Depressed Affect, Motor Weakness Skin: Normal Color, Warm/Dry Lymphatic: No Adenopathy Results Lab Laboratory Tests 01/07/21 11:35 01/07/21 11:59 01/08/21 06:10 Assessment/Plan Assessment/Plan PNA -Continue Zosyn and Vanco -Check hinton cultures -CXR and labs reviewed -Check urine strep and legionella Ag -IVF -Monitor Metabolic acidosis -IVF -Monitor s/p COVID 19 with current Myopathy/debility -PT/OT RICHY -CPAP therapy Obesity Anemia -Monitor ONESIMO BAUMANN DO Jan 08, 2021 07:13
[2021-01-08] MEDS: SENNA W/DOCUSATE (SENOKOT S) TABLET PO SCH ×2 (07:50→20:45)
[2021-01-08] MEDS: ASCORBIC ACID (VIT C) 500 MG TABLET PO SCH ×2 (07:50→17:39)
[2021-01-08] MEDS: VITAMIN D3 25 MCG (1,000 UNITS) TABLET PO SCH (07:50)
[2021-01-08] MEDS: polyethylene glycoL POWDER 17 GM (MIRALAX) PACK PO SCH ×2 (07:50→20:45)
[2021-01-08] MEDS: FINASTERIDE (PROSCAR) 5 MG TAB PO SCH (07:50)
[2021-01-08] MEDS: GABAPENTIN 100 MG (NEURONTIN) CAP PO SCH ×2 (07:50→20:47)
[2021-01-08] MEDS: DOCUSATE SODIUM 100 MG (COLACE) CAP PO SCH ×2 (07:50→20:45)
[2021-01-08] MEDS: TAMSULOSIN 0.4 MG (FLOMAX) CAP PO SCH (07:50)
[2021-01-08] MEDS: IRON SUCROSE 200 MG/10 ML (VENOFER) VIAL IV SCH (07:50)
[2021-01-08] MEDS: PANTOPRAZOLE 40 MG (PROTONIX) TAB PO SCH ×2 (07:50→20:47)
[2021-01-08] MEDS: SALIVA STIMULANT MOUTH SPRAY (BIOTENE) 1.5 OZ MM SCH ×4 (07:51→20:45)
[2021-01-08] MEDS: FLUTICASONE NASAL SPRAY (FLONASE) 16 GM BTL NS SCH (07:51)
[2021-01-08] MEDS: SALINE NASAL SPRAY (OCEAN) 45 ML BTL NS SCH ×3 (07:52→21:02)
[2021-01-08] MEDS: ADVAIR HFA 115/21 MCG INHALER 8 GM IH SCH ×2 (07:55→21:28)
[2021-01-08] MEDS: UMECLIDINIUM BROMIDE (INCRUSE ELLIPTA) 7'S IH SCH (07:55)
[2021-01-08 08:00] VITALS: BP 108/68
[2021-01-08] MEDS ORDERED: dilTIAZem120 MG (CARDIZEM CD) CAP PO SCH (09:00)
--- NOTE | 2021-01-08 09:57 | Physical Therapy Daily Note ---
PT Daily Note-Current Subjective Patient in bed pre tx, agrees to PT, has unrated but severe pain with bearing weight in both feet per patient report, will be co-treating for part of tx with OT due to poor patient mobility, strength, endurance, severe pain with activity, coordinate UE and LE during activity, safety and reduce risk of falls. Appearance Patient in WC at bedside post tx with nurse call, phone, tray, all needs met. Mental Status Patient Orientation: Person, Place, Situation Attachments: Oxygen, IV Transfers SCALE: Activities may be completed with or without assistive devices. 4-Hdkbejexkw-mswzoji completes the activity by him/herself with no assistance from a helper. 5-Set-up or Clean-up Assistance-helper sets up or cleans up; patient completes activity. [place] assists only prior to or following the activity. 4-Supervision or Touching Assistance-helper provides verbal cues and/or touching/steadying and/or contact guard assistance as patient completes activity. Assistance may be provided throughout the activity or intermittently. 3-Partial/Moderate Assistance-helper does LESS THAN HALF the effort. [place] lifts, holds or supports trunk or limbs, but provides less than half the effort. 2-Substantial/Maximal Assistance-helper does MORE THAN HALF the effort. [place] lifts or holds trunk or limbs and provides more than half the effort. 4-Hjlwllaro-hjbucg does ALL the effort. Patient does none of the effort to complete the activity. Or, the assistance of 2 or more helpers is required for the patient to complete the activity. If activity was not attempted, code reason: 7-Patient Refused. 9-Not Applicable-not attempted and the patient did not perform the activity before the current illness, exacerbation or injury. 10-Not Attempted due to Environmental Limitations-(lack of equipment, weather restraints, etc.). 88-Not Attempted due to Medical Conditions or Safety Concerns. Roll Left & Right (QC): 6 Lying to Sitting/Side of Bed(Q: 4 Sit to Stand (QC): 2 Chair/Uql-rv-Ahinw Xfer(QC): 3 Patient also performed 2 sliding board transfers to therapy table and back with min assist Weight Bearing Full Weight Bearing Full Weight Bearing Wheelchair Training Does the Pt Use a Wheelchair?: Yes Wheel 50 ft with 2 turns (QC): 3 Type of Wheelchair: Manual 120'x2, min assist Exercises Seated Therapy Exercises: Ankle pumps, Long arc quads, Hip flexion Seated Reps: 20 seated trunk stability exercises front to back and side to side x20 each side Treatments bed mobility and transfers, WC mobility, LE and trunk exercises Assessment Current Status: Poor Progress no ambulation today due to bilateral feet pain PT Short Term Goals Short Term Goals Time Frame: Dec 11, 2020 Roll Left & Right: 4 (met) Sit to lyin (met) Lying to sitting on side of be: 4 (met) Sit to stand: 3 Chair/sng-xk-nopyk transfer: 3 Walk 10 feet: 3 Walk 50 feet with two turns: 3 PT Mcc Goals Tugboat Engineer Goals PT Tugboat Engineer Goals Time Frame: Jan 01, 2021 Roll Left & Right (QC): 6 Sit to Lying (QC): 6 Lying-Sitting on Side/Bed(QC): 6 Sit to Stand (QC): 6 Chair/Mxh-xs-Wkmcw Xfer(QC): 6 Toilet Transfer (QC): 6 Car Transfer (QC): 6 Does the Patient Walk: No and Walking Goal IS indicated Walk 10 feet (QC): 6 Walk 50ft with 2 Turns (QC): 6 Walk 150 ft (QC): 6 Walking 10ft on Uneven Surface: 4 1 Step (curb) (QC): 4 4 Steps (QC): 4 12 Steps (QC): 4 Picking up an Object (QC): 5 Does the Pt use WC or Scooter?: No Wheel 50 feet with 2 turns (QC: 9 Wheel 150 feet: 9 PT Plan Problem List Problem List: Activity Tolerance, Functional Strength, Safety, Balance, Gait, Transfer, Bed Mobility, ROM Treatment/Plan Treatment Plan: Continue Plan of Care Treatment Plan: Bed Mobility, Education, Functional Activity Erick, Functional Strength, Group Therapy, Gait, Safety, Therapeutic Exercise, Transfers Treatment Duration: Jan 01, 2021 Frequency: At least 5 of 7 days/Wk (IRF) Estimated Hrs Per Day: Other (see notation) Patient and/or Family Agrees t: Yes Safety Risks/Education Patient Education: Transfer Techniques, Correct Positioning, W/C Management, Safety Issues Teaching Recipient: Patient Teaching Methods: Demonstration, Discussion Response to Teaching: Reinforcement Needed Time/GCodes Time In: 0800 Time Out: 0900 Total Billed Treatment Time: 60 Total Billed Treatment 1 visit EX 30' FA 30' co-treated with OT from 9280-8949. OT worked on UE positioning and safety during activity and sliding board transfers JENSEN AMBRIZ PT Jan 08, 2021 09:57
--- NOTE | 2021-01-08 10:28 | Progress Note - Cardiology ---
Cardiology SOAP Progress Note Subjective: Sitting up in w/c at the bedside States he feels better than yesterday, but continues to feel SOB, albeit better No c/o CP C/O bilat LE discomfort, chronic Objective: I&O/Vital Signs 01/08/21 01/08/21 01/08/21 01/08/21 03:55 06:46 07:59 08:00 Temp 36.2 36.5 Pulse 102 95 95 Resp 17 18 B/P (MAP) 119/70 (86) 108/68 (81) Pulse Ox 96 92 96 O2 Delivery NIV CPAP Nasal Cannula Nasal Cannula O2 Flow Rate 4.00 4.00 4.00 01/08/21 01/08/21 01/08/21 01/08/21 09:00 12:48 12:53 15:17 Temp 36.6 Pulse 134 125 Resp 20 B/P (MAP) 86/50 (62) Pulse Ox 94 92 O2 Delivery Nasal Cannula Nasal Cannula Nasal Cannula O2 Flow Rate 4.00 4.00 4.00 01/08/21 00:00 Intake Total 2760 ml Output Total 1450 ml Balance 1310 ml Constitutional: other (somnolent) Respiratory: chest is bilaterally symmetric, other (fair to good, bilateral air entry) Cardiovascular: irregularly irregular, tachycardia, S1 and S2, systolic murmur (soft YANET at card base) Gastrointestional: soft, audible bowel sounds Extremities: other (mild to mod, bilateral leg edema), significant edema (bilaterla) Neurologic/Psychiatric: other (somnolent, seems to be able to move all limbs) Skin: No rash on exposed areas, No ulcerations on exposed areas Results/Procedures: Labs Laboratory Tests 01/07/21 15:45: Urine Color YELLOW, Urine Clarity CLEAR, Urine pH 6.0, Urine Specific [place] 1.020, Urine Protein NEGATIVE, Urine Glucose (UA) NEGATIVE, Urine Ketones NEGATIVE, Urine Nitrite NEGATIVE, Urine Bilirubin NEGATIVE, Urine Urobilinogen 1.0, Urine Leukocyte Esterase TRACEH, Urine RBC (Auto) NEGATIVE, Urine RBC NONE, Urine WBC 5-10H, Urine Squamous Epithelial Cells 0-2, Urine Crystals NONE, Urine Bacteria NEGATIVE, Urine Casts NONE, Urine Mucus NEGATIVE, Urine Culture Indicated NO 01/07/21 16:15: Glucometer 136H 01/07/21 20:02: Glucometer 216H 01/08/21 05:44: Glucometer 88 01/08/21 06:10: White Blood Count 8.2, Red Blood Count 3.11L, Hemoglobin 9.1#L, Hematocrit 29L, Mean Corpuscular Volume 92, Mean Corpuscular Hemoglobin 29, Mean Corpuscular Hemoglobin Concent 32, Red Cell Distribution Width 19.5H, Platelet Count 172, Mean Platelet Volume 9.1, Sodium Level 140, Potassium Level 3.7, Chloride Level 103, Carbon Dioxide Level 25, Anion Gap 12, Blood Urea Nitrogen 13, Creatinine 1.17, Estimat Glomerular Filtration Rate 60, BUN/Creatinine Ratio 11, Glucose Level 88, Calcium Level 8.4L, Corrected Calcium 9.2, Total Bilirubin 1.0, Aspartate Amino Transf (AST/SGOT) 14, Alanine Aminotransferase (ALT/SGPT) 15, Alkaline Phosphatase 55, Total Protein 6.1L, Albumin 3.0L, Procalcitonin 0.21H 01/08/21 10:35: Stool Occult Blood Immunoassay NEGATIVE 01/08/21 10:59: Glucometer 152H Microbiology 01/07/21 MRSA Screen - Final, Complete MRSA not isolated 01/07/21 Blood Culture - Preliminary, Resulted No growth Procedures NAME: NAOMY MAXWELL [facility] REC#: [id number] PT STATUS: ADM IN : 1940 PHYSICIAN: DEANNA BOO DO ADMIT DATE: 12/04/20/[facility] Signed Date of Exam:01/08/21 CHEST 1 VIEW, AP/PA ONLY INDICATION: Pneumonia Upright portable chest shows cardiomegaly with mild pulmonary venous distention. There remains prominence of the interstitium with persistent patchy infiltrate in the left midlung lateral to the left hilum similar to the 01/07/2021 study. There is no effusion or pneumothorax. IMPRESSION: Stable chest. Dictated by: Dictated on workstation # [id number] Dict: 01/08/2136 Trans: 01/08/21 0833 [facility] [id number] Interpreted by: LUIS MARTINEZ MD Electronically signed by: LUIS MARTINEZ MD 01/08/21 0833 A/P: Assessment: Low blood pressure, consider sepsis, Dr Boo managing Gen malaise, probably at least partly due to marked anemia Paroxysmal atrial fibrillation, not suitable for anticoag at this time because of anemia the etiology of which is undetermined and which is requiring blood transfusions Critical illness myopathy, COVID-19 RICHY, treated with CPAP, managed by Dr Boo Plan: * Complex management * Management of sepsis, possible pneumonia by medical/pulmonary services * HR not well controlled - increase calcium channel ran, unable to add BB d/t hypotension on these agents * Management of anemia per medical services * OAC currently being withheld d/t anemia - advise source of blood loss be d etermined and treated as soon as possible so OAC for stroke prophylaxis can be resumed * Monitor labs * Give dose of IV Lasix today DONA VALIENTE Jan 08, 2021 10:28
--- NOTE | 2021-01-08 11:05 | PM&R Progress Note ---
Subjective HPI/CC On Admission Date Seen by Provider: Jan 08, 2021 Time Seen by Provider: 11:15 Subjective/Events-last exam 01/08/21: Patient definitely declined since admitted but remains stable just more complic ated 2 units of blood has increased hgb to 9.1 which has helped alertness Hemoccult was negative sent to lab today PPI on board OAC on hold Indocin done Dr Zuñiga saw patient and ordered Nebs IV abx maintained Complains of foot pain but not many more options for gout and neuropathy and chronic foot pain he was taking Oxycodone prior to admit before arrival 01/07/21: Patient more drowsy today. Started septic w/u and lactic acid was elevated at 2.1 so started gentle IVF and consulted Dr Zuñiga and started on abx empirically for bilateral ATX vs infiltrate Agreeable for transfusion now so ordered 2 units and will give iron infusion tomorrow also Complex case overall OHA is held Hemoccult stools ordered 01/06/21: Hgb 7.4 and discussed placement of midline for transfusion of 1 unit and/or iron infusions and after a great deal of thought he declines both Patient doing well otherwise Fatigue about the same NHP Occult stool ordered 01/05/21: Complains about sleeping all the time Changed Gabapentin to BID instead of TID Large BM daily Mildly low BP noted Tremor reported to RN but not discussed with me 01/04/21: Sugars improved 113 this am Foot pain improved Indocin taper maintained 01/03/21: Uric acid ordered by Dr Rob Toe is better Decubitus ulcer is improved No pain otherwise Severe dyspnea when active but he seems to not be bothered about it 01/02/21: Left foot pain occurred last night Right great toe improved since Indocin BM+ NHP at DC 01/01/21: Pt was slightly hypotensive today but cardiology is managing Indocin is helping the gout in his foot Bowels are moving 3.5 liters maintained DC planned for 01/08/21 to NH 12/31/20: Dr. Rob diagnosed gout so Indocin was started Remains on 3.5 liters of O2 Scared to not use the sit to stand 12/30/20: Bowels moved yesterday Doing pretty well Right great toe pain so consulted Dr. Rob Uric acid will be added and X-ray of the right foot 12/29/20: Patient frustrated BM yesterday Sputum produced and sent down to lab? Sugar 196 No pain meds required today 12/28/20: Alevan on his buttock Coughed up some green sputum 3 times yesterday but lungs are clear BM large today Oxycodone for his left foot pain helped 2+ edema Sugar 167 He is very pessimistic about his overall progress which cannot be redirected 12/27/20: Transferring without the site to stand now Improved overall BM+ Alevan vs. butt paste on buttock He sits in chair all day long on computer 12/26/20: Insurance declined skilled for now Standing and actually progressing well 2L/min and doing well DC scheduled APAP TID 12/25/20: Awaiting skilled nursing placement Actually working pretty well with therapy Denies any significant new pain Blurry vision still continues Didnt sleep real well last night 12/24/20: Eyes were better but the more he works on the computer the blurry issues return DC is on hold due to NH processes 12/23/20: Pt doing pretty well Buttock decubitus ulcer needs further treatment Discharge planned for tomorrow Hemaglobin 9.3 Midline will be discontinued at his request 12/22/20: Home O2 evaluation tomorrow for DC Wednesday DM education will be provided DC planned for OR 12/21/20: Doing well Slept well BM today Edema improved on KRIS's Decubitus ulcers worsened due to sitting in chair all day long IS use increased 12/20/20: Now has daily complaints about minor things since he was notified last week he would need a OR Nurse broke his grabber so will obtain replacement for him Butt paste placed on buttocks Stage 2 No other issues 12/19/20: No major issues Bowels are moving [facility] placement on Wednesday12/18/20: Discharge Wednesday to the skilled nursing Family training did not go well Son was there but did not engage Insists on going home but that would not be a possibility Placing Alevin on buttock 12/17/20: Family training today at 10:00 Still has a stage 2 buttock decubitus ulcer Overall feels like he is doing much better Son at bedside when I rounded later today and he was evaluating his progress 12/16/20: Pt doing pretty well Bowels moved today Left midline is functioning Blood sugar 147 Stage 2 decubitus ulcer on the buttock Working really hard to stand 12/15/20: Overall doing well No issues BM+ No falls 12/14/20: Doing well BM+ Dyspnea still continues No pain 12/13/20: Patient more alert today and energized No pain reported Oxycodone helps the foot pain Participating with therapy 12/12/20: Pt doing a lot better Having a lot of pain, takes Oxycodone for his foot and leg pain Bowels are moving Sleeping better Pt very well could require a skilled nursing since he lives alone and is just not progressing well 12/11/20: No major issues Pretty much has plateaued and not made much progress with ambulation Epistaxis of the left nostril Nasal sprays will be continued Re-check and check with insurance coverage but he very well may need to be in a skilled nursing 12/10/20: Pt doing pretty well Slept on and off last night Remains on 4 liters of O2 Swelling in his feel is pretty minimal Did not use his BiPAP last night and that likely is the cause of not sleeping well 12/09/20: Pt slept pretty well Bowels are moving PLTs are 97, 000 Normal WBC down from 21 when he first arrived Denies any significant issues Trying to get strong enough to walk 12/08/20: Slept well last night Remeron and Melatonin has helped him a lot Sinus tachy last night BM 12/06/20 so laxatives given No other issues 12/07/20: Slept better Yonker provided for phlem HR 60 Appreciate Cardiology 4L/min O2 BM 12/06/20 12/06/20: HR 122 Cardiology consulted Sugar 54 so decreasing insulin BM++ No pain reported No sleeping well so added hypnotics of Melatonin and Remeron 12/05/20: Patient doing well Worn out from fatigue Sugars are ok No pain reported Tachycardic so consulting Dr Carranza Midline was accidently pulled out so need a new one placed Checked meds and labs Review of Systems General: Fatigue, Malaise Pulmonary: Dyspnea Musculoskeletal: foot pain Neurological: Weakness Focused Exam Lactate Level 01/07/21 12:00: Lactic Acid Level 2.14*H 01/07/21 14:15: Lactic Acid Level 1.71 Objective Exam Vital Signs Vital Signs Date Time Temp Pulse Resp B/P (MAP) Pulse Ox O2 Delivery O2 Flow Rate FiO2 01/08/21 16:00 36.6 97 18 105/69 (81) 97 Nasal Cannula 4.00 Capillary Refill : General Appearance: No Apparent Distress, WD/WN, Anxious, Chronically ill, Obese HEENT: PERRL/EOMI, Normal ENT Inspection, Pharynx Normal Neck: Full Range of Motion, Normal Inspection, Non Tender, Supple, Carotid Bruit Respiratory: Chest Non Tender, Lungs Clear, No Accessory Muscle Use, No Respiratory Distress, Decreased Breath Sounds Cardiovascular: Regular Rate, Rhythm, No Gallop, No JVD, No Murmur, Normal Peripheral Pulses Gastrointestinal: Normal Bowel Sounds, No Organomegaly, No Pulsatile Mass, Non Tender, Soft Back: Normal Inspection, No CVA Tenderness, No Vertebral Tenderness Extremity: Normal Capillary Refill, Normal Inspection, Normal Range of Motion, Non Tender, No Calf Tenderness, Pedal Edema Neurologic/Psychiatric: Alert, Oriented x3, No Motor/Sensory Deficits, small business director II- XII Norm as Tested, Depressed Affect, Motor Weakness Skin: Normal Color, Warm/Dry Lymphatic: No Adenopathy Results/Procedures Lab Laboratory Tests 01/08/21 06:10 Patient resulted labs reviewed. FIM Transfers Therapy Code Descriptions/Definitions Functional [place] Measure: 0=Not Assessed/NA 4=Minimal Assistance 1=Total Assistance 5=Supervision or Setup 2=Maximal Assistance 6=Modified [place] 3=Moderate Assistance 7=Complete IndependenceSCALE: Activities may be completed with or without assistive devices. 6-Wokbtusopf-hxlsfgk completes the activity by him/herself with no assistance from a helper. 5-Set-up or Clean-up Assistance-helper sets up or cleans up; patient completes activity. [place] assists only prior to or following the activity. 4-Supervision or Touching Assistance-helper provides verbal cues and/or touching/steadying and/or contact guard assistance as patient completes activity. Assistance may be provided throughout the activity or intermittently. 3-Partial/Moderate Assistance-helper does LESS THAN HALF the effort. [place] lifts, holds or supports trunk or limbs, but provides less than half the effort. 2-Substantial/Maximal Assistance-helper does MORE THAN HALF the effort. [place] lifts or holds trunk or limbs and provides more than half the effort. 6-Rypjpvsuu-nqgvwz does ALL the effort. Patient does none of the effort to complete the activity. Or, the assistance of 2 or more helpers is required for the patient to complete the activity. If activity was not attempted, code reason: 7-Patient Refused. 9-Not Applicable-not attempted and the patient did not perform the activity before the current illness, exacerbation or injury. 10-Not Attempted due to Environmental Limitations-(lack of equipment, weather restraints, etc.). 88-Not Attempted due to Medical Conditions or Safety Concerns. Roll Left to Right (QC): 6 Sit to Lying (QC): 2 Sit to Stand (QC): 2 Chair/Aow-iv-Mlcqc Xfer(QC): 3 Car Transfer (QC): 88 Gait Training Does the Patient Walk?: Yes Distance: 15' Walk 10 feet (QC): 4 Walk 50 ft with 2 Turns(QC): 88 Walk 150 ft (QC): 88 Walking 10ft/uneven surface-QC: 88 Gait Persons Needed: 1 Gait Assistive Device: FWW Wheelchair Training Does the Pt Use a Wheelchair?: Yes Wheel 50 ft with 2 turns (QC): 3 Wheel 150 ft (QC): 4 Type of Wheelchair: Manual Stair Training #of Steps: 1 1 Step (curb) (QC): 88 4 Steps (QC): 88 12 Steps (QC): 88 Stairs: Pattern: Step to Balance Picking up an Object (QC): 88 ADL-Treatment Eating (QC): 6 Oral Hygiene (QC): 6 Bathing Location: L Arm, R Arm, L Upper Leg, R Upper Leg, Chest, Abdomen, Perineal Area Shower/Bathe Self (QC): 7 (Pt. continues to decline showering this date. States, "I just don't feel like it.") Upper Body Dressing (QC): 4 Lower Body Dressing (QC): 1 (Assist in stance by PT for upright posture, and OT doffed shorts down over hips.) On/Off Footwear (QC): 2 Toileting Hygiene (QC): 1 (Pt. incontinent of bowel and was unaware. PT assisted pt. 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 Obesity DM Neuropathy Anemia 7.4 on 01/06/21 but declined transfusion and iron infusions until changing mind s/p 2 units blood 01/07/21 O2 dependence Right great toe pain consulted Dr Rob 12/30/20 dx with gout and placed on Indocin Early sepsis 01/07/21 due to PNA placed on abx and IVF Plan: IRF protocol Monitor O2 O2 supplement 12/05/20: O2 maintained IRF protocol Cardiology consultation appreciated Midline replacement 12/06/20: Cardiology consult appreciated Decrease insulin Midline Monitor closely 12/07/20: Monitor closely O2 wean Increase acitivity Maintain Remeron and Melatonin 12/08/20: Monitor closely Check labs in am Monitor tachycardia Remeron and Melatonin 12/09/20: Labs normal Improved strength Weaning O2 Monitor insomnia Increase insulin 12/10/20: Monitor O2 Increase strength Severe myopathy of legs 12/11/20: Difficult to progress Continue therapy May need NHP 12/12/20: Pain control with Oxycodone Monitor bowels Monitor O2 12/13/20: Monitor pain Wean O2 CPAP mask seems to be working better 12/14/20: Improved status Stood up today with help O2 12/15/20: Wean O2 Monitor ambulation CPAP at night 12/16/20: Monitor progress Decubitus ulcer management Monitor BP 12/17/20: Family education/training today Monitor O2 CPAP with O2 12/18/20: Monitor O2 NH Wednesday Continue to work on stamina 12/19/20: Monitor O2 CPAP 12/20/20: Decubitus ulcer management Monitor O2 Replace grabber 12/21/20: Monitor O2 KRIS CPAP 12/22/20: DC Wednesday to OR Home O2 evaluation 12/23/20: DC midline DC tomorrow to OR Needs eye exam soon for blurry vision 12/24/20: DC on hold Monitor O2 12/25/20: Continue therapy Making significant progress 12/26/20: Monitor progress Standing now May be able to DC home? 12/27/20: Much improved status Improved standing No pain reported 12/28/20: Walked a bit but he gets discouraged so quickly Pain controlled in his foot Monitor cough 12/29/20: Started scheduled insulin AC Adjusted Levemir to 10 units HS since sugars are low in am and maintained Levemir 20 units at bfast Check labs in am 12/30/20: Right great toe pain eval by Dr Rob Check uric acid and xray Monitor sugar 12/31/20: Indocin for gout Monitor closely Pain control 01/01/21: Gout treatment Monitor closely Pain control IRF protocol 01/02/21: O2 Gout treatment Monitor dyspnea 01/03/21: Gout treatment Monitor O2 and dyspnea 01/04/21: O2 wean Monitor foot pain Indocin taper 01/05/21: Monitor low BP Change Gabapentin to BID from TID 01/06/21: Hgb 7.4 but patient declines transfusion and iron infusions Monitor O2 01/07/21: Blood transfusions [address] Zuñiga consultation Cardiology appreciated Hold OAC 01/08/21: HLIVF IV abx Appreciate Dr Zuñiga Monitor hgb Hold OAC (1) COVID-19 (2) RICHY on CPAP (3) Obesity (4) Diabetes (5) Hypertension (6) Edema (7) Neuropathy (8) Anemia (9) Advanced age (10) Gout DEANNA BOO DO Jan 08, 2021 11:05
--- NOTE | 2021-01-08 11:27 | Occupational Ther Daily Note ---
OT Current Status-Daily Note Subjective Pt. reports pain in bottom of feet during sessions. Does not report pain level. Nursing notified. Please see note. Mental Status/Objective Patient Orientation: Person, Place Attachments: Oxygen, Telemetry ADL-Treatment Therapy Code Descriptions/Definitions Functional [place] Measure: 0=Not Assessed/NA 4=Minimal Assistance 1=Total Assistance 5=Supervision or Setup 2=Maximal Assistance 6=Modified [place] 3=Moderate Assistance 7=Complete IndependenceSCALE: Activities may be completed with or without assistive devices. 1-Czdmchwdkf-jdsrbyb completes the activity by him/herself with no assistance from a helper. 5-Set-up or Clean-up Assistance-helper sets up or cleans up; patient completes activity. [place] assists only prior to or following the activity. 4-Supervision or Touching Assistance-helper provides verbal cues and/or touching/steadying and/or contact guard assistance as patient completes activity. Assistance may be provided throughout the activity or intermittently. 3-Partial/Moderate Assistance-helper does LESS THAN HALF the effort. [place] lifts, holds or supports trunk or limbs, but provides less than half the effort. 2-Substantial/Maximal Assistance-helper does MORE THAN HALF the effort. [place] lifts or holds trunk or limbs and provides more than half the effort. 8-Utpudblhu-lamhnh does ALL the effort. Patient does none of the effort to complete the activity. Or, the assistance of 2 or more helpers is required for the patient to complete the activity. If activity was not attempted, code reason: 7-Patient Refused. 9-Not Applicable-not attempted and the patient did not perform the activity before the current illness, exacerbation or injury. 10-Not Attempted due to Environmental Limitations-(lack of equipment, weather restraints, etc.). 88-Not Attempted due to Medical Conditions or Safety Concerns. Oral Hygiene (QC): 7 On/Off Footwear: 2 Toileting Hygiene (QC): 1 Toilet Transfer (QC): 1 Other Treatment Pt. seen for two sessions this a.m. At first session, [id number], pt. seen for co-treatment with PT due to need of skilled assistance x 2, reported pain, and poor endurance level. Pt. up in wheelchair with PT. The goal was to assist pt. with ambulation, but pt. unable to do so due to reported pain in bilateral feet. OT checked feet and noted some redness, modeling, and swelling. Reported this to nursing. Utilized slide board to transfer to mat in gym. PT facilitated trunk strength and balance seated while OT facilitated pelvic tilts, weight shifts, and UE ROM. Pt. taken back to room, and all needs met. At second session, [id number], pt. requests to use toilet. Declines all attempts of standing with walker or grab bars, and requests sit-stand lift. Pt. is transferred with dependent assist using lift. After having BM, OT cleanses yo area and pulls up shorts. Nursing comes in to assess bottom. Transferred pt. back to wheelchair. OT assessed bilateral feet again, and feet seem less red in nature overall. Noted pt. had dry skin and so OT applies lotion to bilateral UE and LE. No massage completed but pt. states that his skin feels better. All needs met up in wheelchair and pt. positioned to comfort level. Education OT Patient Education: Correct positioning, Modified ADL techniques, Progress toward Goal/Update tx plan, Purpose of tx/functional activities, Reviewed precautions, Rehab process, Transfer techniques Teaching Recipient: Patient Teaching Methods: Demonstration, Discussion Response to Teaching: Verbalize Understanding, Return Demonstration, Reinforcement Needed OT Short Term Goals Short Term Goals Time Frame: Dec 11, 2020 Eatin Oral hygiene: 88 Toileting hygiene: 2 Shower/bathe self: 3 Upper body dressin Lower body dressin Putting on/taking off footwear: 6 OT Group Home Goals Group Home Goals Time Frame: Dec 25, 2020 Eating (QC): 6 Oral Hygiene (QC): 6 Toileting Hygiene (QC): 5 Shower/Bathe Self (QC): 5 Upper Body Dressing (QC): 6 Lower Body Dressing (QC): 4 On/Off Footwear (QC): 6 Additional Goals: 1-Demonstrate ADL Tasks, 2-Verbalize Understanding, 3- ImproveStrength/Erick 1=Demonstrate adherence to instructed precautions during ADL tasks. 2=Patient will verbalize/demonstrate understanding of assistive ramandeep kraig/modifications for ADL. 3=Patient will improve strength/tolerance for activity to enable patient to perform ADL's. OT Education/Plan Problem List/Assessment Assessment: Decreased Activ Tolerance, Decreased UE Strength, Dependent Transfers, Impaired Bed Mobility, Impaired Funct Balance, Impaired I ADL's, Impaired Self-Care Skills, Restricted Funct UE ROM Discharge Recommendations Plan/Recommendations: Continue POC Therapy Discharge Recommendati: 24 Hour Supervision Treatment Plan/Plan of Care Treatment,Training & Education: Yes Patient would benefit from OT for education, treatment and training to promote independence in ADL's, mobility, safety and/or upper extremity function for ADL's. Plan of Care: ADL Retraining, Caregiver Training, Functional Mobility, Group Exercise/Act as Ind, UE Funct Exercise/Act Treatment Duration: Dec 25, 2020 Frequency: Modified Program (IRF) Estimated Hrs Per Day: 1.5 hours per day Agreement: Yes Rehab Potential: Fair Time/GCodes Start Time: 08:30 Stop Time: 11:00 Total Time Billed (hr/min): 75 Billed Treatment Time [id number] 1, FA x 30minutes- Co-treatment with PT. Please see above note for designated roles. [id number] 1, ADL x 45minutes CAMILA SINCLAIR OT Jan 08, 2021 11:26
--- NOTE | 2021-01-08 11:30 | Physical Therapy Daily Note ---
PT Daily Note-Current Subjective Patient in WC pre tx, agrees to PT, has unrated pain in both feet. Appearance Patient in WC post tx with nurse call, phone, tray, all needs met. Mental Status Patient Orientation: Person, Place, Situation Attachments: Oxygen, IV Transfers SCALE: Activities may be completed with or without assistive devices. 2-Khwbjrghot-ojtkvrk completes the activity by him/herself with no assistance from a helper. 5-Set-up or Clean-up Assistance-helper sets up or cleans up; patient completes activity. [place] assists only prior to or following the activity. 4-Supervision or Touching Assistance-helper provides verbal cues and/or touching/steadying and/or contact guard assistance as patient completes activity. Assistance may be provided throughout the activity or intermittently. 3-Partial/Moderate Assistance-helper does LESS THAN HALF the effort. [place] lifts, holds or supports trunk or limbs, but provides less than half the effort. 2-Substantial/Maximal Assistance-helper does MORE THAN HALF the effort. [place] lifts or holds trunk or limbs and provides more than half the effort. 1-Fafuopcic-hftfhy does ALL the effort. Patient does none of the effort to complete the activity. Or, the assistance of 2 or more helpers is required for the patient to complete the activity. If activity was not attempted, code reason: 7-Patient Refused. 9-Not Applicable-not attempted and the patient did not perform the activity before the current illness, exacerbation or injury. 10-Not Attempted due to Environmental Limitations-(lack of equipment, weather restraints, etc.). 88-Not Attempted due to Medical Conditions or Safety Concerns. Weight Bearing Full Weight Bearing Full Weight Bearing Exercises Seated Therapy Exercises: Ankle pumps, Long arc quads, Hip flexion Seated Reps: 20 (2 sets) BLE stretching, concentrating on hamstrings and gastrocs Treatments BLE exercise and stretching Assessment Current Status: Poor Progress increased bilateral foot pain PT Short Term Goals Short Term Goals Time Frame: Dec 11, 2020 Roll Left & Right: 4 (met) Sit to lyin (met) Lying to sitting on side of be: 4 (met) Sit to stand: 3 Chair/kei-ka-igivk transfer: 3 Walk 10 feet: 3 Walk 50 feet with two turns: 3 PT Shelter Goals Director Bioinformatics Goals PT Shelter Goals Time Frame: Jan 01, 2021 Roll Left & Right (QC): 6 Sit to Lying (QC): 6 Lying-Sitting on Side/Bed(QC): 6 Sit to Stand (QC): 6 Chair/Lhb-qd-Sghqs Xfer(QC): 6 Toilet Transfer (QC): 6 Car Transfer (QC): 6 Does the Patient Walk: No and Walking Goal IS indicated Walk 10 feet (QC): 6 Walk 50ft with 2 Turns (QC): 6 Walk 150 ft (QC): 6 Walking 10ft on Uneven Surface: 4 1 Step (curb) (QC): 4 4 Steps (QC): 4 12 Steps (QC): 4 Picking up an Object (QC): 5 Does the Pt use WC or Scooter?: No Wheel 50 feet with 2 turns (QC: 9 Wheel 150 feet: 9 PT Plan Problem List Problem List: Activity Tolerance, Functional Strength, Safety, Balance, Gait, Transfer, Bed Mobility, ROM Treatment/Plan Treatment Plan: Continue Plan of Care Treatment Plan: Bed Mobility, Education, Functional Activity Erick, Functional Strength, Group Therapy, Gait, Safety, Therapeutic Exercise, Transfers Treatment Duration: Jan 01, 2021 Frequency: At least 5 of 7 days/Wk (IRF) Estimated Hrs Per Day: Other (see notation) Patient and/or Family Agrees t: Yes Safety Risks/Education Patient Education: Correct Positioning, Safety Issues Teaching Recipient: Patient Teaching Methods: Demonstration, Discussion Response to Teaching: Reinforcement Needed Time/GCodes Time In: 1115 Time Out: 1130 Total Billed Treatment Time: 15 Total Billed Treatment 1 visit EX 15' JENSEN AMBRIZ PT Jan 08, 2021 11:30
[2021-01-08] MEDS: ACETAMINOPHEN 325 MG TABLET PO PRN ×2 (11:49→17:39)
[2021-01-08] MEDS ORDERED: FUROSEMIDE 40 MG/4 ML INJ (LASIX) IVP ONE (12:00)
[2021-01-08 12:53] VITALS: BP 86/50
[2021-01-08] MEDS ORDERED: ALLOPURINOL 100 MG (ZYLOPRIM) TAB PO SCH (14:15)
[2021-01-08] MEDS ORDERED: ALLOPURINOL 100 MG (ZYLOPRIM) TAB ONE (14:25)
[2021-01-08] MEDS ORDERED: NS IV 1000 ML 1,000 ML ONE (14:37)
[2021-01-08] MEDS ORDERED: NS 100 ML (IVPB) BAG IV SCH (15:00)
--- NOTE | 2021-01-08 15:02 | Progress Note - Cardiology ---
Cardiology SOAP Progress Note Subjective: Gen malaise and weakness No cp or palp or syncope No shortness of breath at rest Swelling in the legs No n/v/d Objective: I&O/Vital Signs 01/08/21 01/08/21 01/08/21 01/08/21 03:55 06:46 07:59 08:00 Temp 36.2 36.5 Pulse 102 95 95 Resp 17 18 B/P (MAP) 119/70 (86) 108/68 (81) Pulse Ox 96 92 96 O2 Delivery NIV CPAP Nasal Cannula Nasal Cannula O2 Flow Rate 4.00 4.00 4.00 01/08/21 01/08/21 01/08/21 09:00 12:48 12:53 Temp 36.6 Pulse 134 125 Resp 20 B/P (MAP) 86/50 (62) Pulse Ox 94 O2 Delivery Nasal Cannula Nasal Cannula O2 Flow Rate 4.00 4.00 01/08/21 00:00 Intake Total 2760 ml Output Total 1450 ml Balance 1310 ml Constitutional: other (somnolent) Respiratory: chest is bilaterally symmetric, other (fair to good, bilateral air entry) Cardiovascular: irregularly irregular, tachycardia, S1 and S2, systolic murmur (soft YANET at card base) Gastrointestional: soft, audible bowel sounds Extremities: other (mild to mod, bilateral leg edema), significant edema (bilaterla) Neurologic/Psychiatric: other (somnolent, seems to be able to move all limbs) Skin: No rash on exposed areas, No ulcerations on exposed areas Results/Procedures: Labs Laboratory Tests 01/07/21 15:45: Urine Color YELLOW, Urine Clarity CLEAR, Urine pH 6.0, Urine Specific [place] 1.020, Urine Protein NEGATIVE, Urine Glucose (UA) NEGATIVE, Urine Ketones N EGATIVE, Urine Nitrite NEGATIVE, Urine Bilirubin NEGATIVE, Urine Urobilinogen 1.0, Urine Leukocyte Esterase TRACEH, Urine RBC (Auto) NEGATIVE, Urine RBC NONE, Urine WBC 5-10H, Urine Squamous Epithelial Cells 0-2, Urine Crystals NONE, Urine Bacteria NEGATIVE, Urine Casts NONE, Urine Mucus NEGATIVE, Urine Culture Indicated NO 01/07/21 16:15: Glucometer 136H 01/07/21 20:02: Glucometer 216H 01/08/21 05:44: Glucometer 88 01/08/21 06:10: White Blood Count 8.2, Red Blood Count 3.11L, Hemoglobin 9.1#L, Hematocrit 29L, Mean Corpuscular Volume 92, Mean Corpuscular Hemoglobin 29, Mean Corpuscular Hemoglobin Concent 32, Red Cell Distribution Width 19.5H, Platelet Count 172, Mean Platelet Volume 9.1, Sodium Level 140, Potassium Level 3.7, Chloride Level 103, Carbon Dioxide Level 25, Anion Gap 12, Blood Urea Nitrogen 13, Creatinine 1.17, Estimat Glomerular Filtration Rate 60, BUN/Creatinine Ratio 11, Glucose Level 88, Calcium Level 8.4L, Corrected Calcium 9.2, Total Bilirubin 1.0, Aspartate Amino Transf (AST/SGOT) 14, Alanine Aminotransferase (ALT/SGPT) 15, Alkaline Phosphatase 55, Total Protein 6.1L, Albumin 3.0L, Procalcitonin 0.21H 01/08/21 10:35: Stool Occult Blood Immunoassay NEGATIVE 01/08/21 10:59: Glucometer 152H Microbiology 01/07/21 MRSA Screen - Final, Complete MRSA not isolated 01/07/21 Blood Culture - Preliminary, Resulted No growth Laboratory Tests 01/07/21 11:35 01/07/21 11:59 01/08/21 06:10 A/P: Assessment: Probable L-sided pneumonia and sepsis with borderline hypotension Sinus tachycardia, likely due to sepsis/pneumonia Severe anemia of undetermined etiology, treated with 2 U PRBC on 01/07/21 Paroxysmal atrial fibrillation, not suitable for anticoag at this time because of anemia the etiology of which is undetermined and which is requiring blood transfusions Critical illness myopathy, COVID-19 RICHY, treated with CPAP, managed by Dr Dawkins Plan: * Complex management due to multiple comorbidities * Dr Dawkins managing pneumonia, sepsis, and anemia * OAC currently being withheld d/t anemia - advise w/u for blood loss; if found, source should be treated as soon as possible so OAC for stroke prophylaxis can be resumed * Monitor labs * Give dose of IV Lasix today because of swelling * Continue iv fluids because of suspected sepsis and hypotension KENDRA LINDSAY MD FACP FAC CCDS Jan 08, 2021 15:02
[2021-01-08 16:00] VITALS: BP 105/69
[2021-01-08 20:05] VITALS: BP 120/53
[2021-01-08] MEDS: MELATONIN 3 MG TABLET PO SCH (20:46)
[2021-01-08] MEDS: MIRTAZAPINE 15 MG (REMERON) TAB PO SCH (20:47)
[2021-01-09 00:05] VITALS: BP 117/58
[2021-01-09] MEDS: RT-ALBUTEROL/IPRATROPIUM 3 ML (DUONEB) VIAL IH SCH ×4 (02:11→19:54)
[2021-01-09 04:00] VITALS: BP 116/52
[2021-01-09] MEDS ORDERED: TROUGH ORDER-PHARMACY XX NR (04:00)
[2021-01-09] MEDS: VANCOMYCIN 1500 MG/NS 500 ML IVPB IV SCH ×2 (05:00)
[2021-01-09] MEDS: inSUlin ASPART (NovoLOG) 1 UNIT/0.01 ML (CHARGE PER UNIT) SC SCH ×7 (06:00→21:23)
[2021-01-09] MEDS: PIPERACILLIN/TAZOBACTAM (BULK) 4.5 GM in NS (IVPB) 100 ML IV SCH ×3 (06:42→21:24)
[2021-01-09 06:45] LABS: ALBUMIN 2.8 GM/DL (3.2-4.5); POTASSIUM 3.4 MMOL/L (3.6-5.0)
[2021-01-09 06:46] LABS: BASOPHILS % (AUTO) 1 % (0-10); EOSINOPHILS % (AUTO) 1 % (0-10); HEMATOCRIT 26 % (40-54); HEMOGLOBIN 8.2 g/dL (13.3-17.7); LYMPHOCYTES # (AUTO) 0.8 10^3/uL (1.0-4.0); LYMPHOCYTES % (AUTO) 12 % (12-44); MEAN CORPUSCULAR HEMOGLOBIN 30 pg (25-34); MEAN CORPUSCULAR HGB CONC 31 g/dL (32-36); MEAN CORPUSCULAR VOLUME 94 fL (80-99); MEAN PLATELET VOLUME 9.6 fL (9.0-12.2); MONOCYTES # (AUTO) 1.3 10^3/uL (0.0-1.0); MONOCYTES % (AUTO) 21 % (0-12); NEUTROPHILS # (AUTO) 4.2 10^3/uL (1.8-7.8); NEUTROPHILS % (AUTO) 65 % (42-75); PLATELET COUNT 186 10^3/uL (130-400); WHITE BLOOD COUNT 6.5 10^3/uL (4.3-11.0)
[2021-01-09 06:47] LABS: CALCIUM 8.2 MG/DL (8.5-10.1)
[2021-01-09 06:48] LABS: TOTAL PROTEIN 5.7 GM/DL (6.4-8.2)
[2021-01-09 06:51] LABS: CREATININE SERUM 1.22 MG/DL (0.60-1.30)
--- NOTE | 2021-01-09 07:02 | Pulmonary Progress Note ---
Subjective Time Seen by a Provider: 06:59 Sepsis Event Evaluation Height, Weight, BMI Height: '" Weight: lbs. oz. kg; 33.68 BMI Method: Focused Exam Lactate Level 01/07/21 12:00: Lactic Acid Level 2.14*H 01/07/21 14:15: Lactic Acid Level 1.71 Exam Exam Vital Signs Date Time Temp Pulse Resp B/P (MAP) Pulse Ox O2 Delivery O2 Flow Rate FiO2 01/09/21 04:00 36.2 78 20 116/52 (73) 97 NIV CPAP 4.00 01/09/21 02:11 92 NIV CPAP 5.00 01/09/21 01:00 100 01/09/21 00:05 36.6 84 20 117/58 (77) 95 NIV CPAP 4.00 01/08/21 21:32 80 Nasal Cannula 4.00 01/08/21 20:05 36.6 102 120/53 (75) 94 Nasal Cannula 4.00 01/08/21 20:00 94 Nasal Cannula 4.00 01/08/21 19:00 104 01/08/21 16:00 36.6 97 18 105/69 (81) 97 Nasal Cannula 4.00 01/08/21 15:17 92 Nasal Cannula 4.00 01/08/21 12:53 36.6 125 20 86/50 (62) 94 Nasal Cannula 4.00 01/08/21 12:48 134 01/08/21 09:00 Nasal Cannula 4.00 01/08/21 08:00 36.5 95 18 108/68 (81) 96 Nasal Cannula 4.00 01/08/21 07:59 92 Nasal Cannula 4.00 I & O 01/09/21 07:00 Intake Total 1300 ml Output Total 1550 ml Balance -250 ml Height & Weight Height: '" Weight: lbs. oz. kg; 33.68 BMI Method: General Appearance: No Apparent Distress, WD/WN, Anxious, Chronically ill, Obese HEENT: PERRL/EOMI, Normal ENT Inspection, Pharynx Normal Neck: Full Range of Motion, Normal Inspection, Non Tender, Supple, Carotid Brui t Respiratory: Chest Non Tender, Lungs Clear, No Accessory Muscle Use, No Resp iratory Distress, Decreased Breath Sounds Cardiovascular: Regular Rate, Rhythm, No Gallop, No JVD, No Murmur, Normal Peripheral Pulses Extremity: Normal Capillary Refill, Normal Inspection, Normal Range of Motion, Non Tender, No Calf Tenderness, Pedal Edema Neurologic/Psychiatric: Alert, Oriented x3, No Motor/Sensory Deficits, 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
--- NOTE | 2021-01-09 07:09 | PM&R Progress Note ---
Subjective HPI/CC On Admission Date Seen by Provider: Jan 09, 2021 Time Seen by Provider: 10:00 Subjective/Events-last exam 01/09/21: Patient doing about the same Dr Zuñiga evaluated him and resp status is stable Hgb 8.2 his baseline for past few weeks. Zosyn maintained Vanc DC due to MRSA swab negative Allopurinol started yesterday Dr Rob Feet are edematous and venous stasis noted so recommended KRIS's and ZULEIKA wraps 01/08/21: Patient definitely declined since admitted but remains stable just more complicated 2 units of blood has increased hgb to 9.1 which has helped alertness Hemoccult was negative sent to lab today PPI on board OAC on hold Indocin done Dr Zuñiga saw patient and ordered Nebs IV abx maintained Complains of foot pain but not many more options for gout and neuropathy and chronic foot pain he was taking Oxycodone prior to admit before arrival 01/07/21: Patient more drowsy today. Started septic w/u and lactic acid was elevated at 2.1 so started gentle IVF and consulted Dr Zuñiga and started on abx empirically for bilateral ATX vs in filtrate Agreeable for transfusion now so ordered 2 units and will give iron infusion tomorrow also Complex case overall OHA is held Hemoccult stools ordered 01/06/21: Hgb 7.4 and discussed placement of midline for transfusion of 1 unit and/or iron infusions and after a great deal of thought he declines both Patient doing well otherwise Fatigue about the same NHP Occult stool ordered 01/05/21: Complains about sleeping all the time Changed Gabapentin to BID instead of TID Large BM daily Mildly low BP noted Tremor reported to RN but not discussed with me 01/04/21: Sugars improved 113 this am Foot pain improved Indocin taper maintained 01/03/21: Uric acid ordered by Dr Rob Toe is better Decubitus ulcer is improved No pain otherwise Severe dyspnea when active but he seems to not be bothered about it 01/02/21: Left foot pain occurred last night Right great toe improved since Indocin BM+ NHP at DC 01/01/21: Pt was slightly hypotensive today but cardiology is managing Indocin is helping the gout in his foot Bowels are moving 3.5 liters maintained DC planned for 01/08/21 to NH 12/31/20: Dr. Rob diagnosed gout so Indocin was started Remains on 3.5 liters of O2 Scared to not use the sit to stand 12/30/20: Bowels moved yesterday Doing pretty well Right great toe pain so consulted Dr. Rob Uric acid will be added and X-ray of the right foot 12/29/20: Patient frustrated BM yesterday Sputum produced and sent down to lab? Sugar 196 No pain meds required today 12/28/20: Alevan on his buttock Coughed up some green sputum 3 times yesterday but lungs are clear BM large today Oxycodone for his left foot pain helped 2+ edema Sugar 167 He is very pessimistic about his overall progress which cannot be redirected 12/27/20: Transferring without the site to stand now Improved overall BM+ Alevan vs. butt paste on buttock He sits in chair all day long on computer 12/26/20: Insurance declined skilled for now Standing and actually progressing well 2L/min and doing well DC scheduled APAP TID 12/25/20: Awaiting senior care placement Actually working pretty well with therapy Denies any significant new pain Blurry vision still continues Didnt sleep real well last night 12/24/20: Eyes were better but the more he works on the computer the blurry issues return DC is on hold due to NH processes 12/23/20: Pt doing pretty well Buttock decubitus ulcer needs further treatment Discharge planned for tomorrow Hemaglobin 9.3 Midline will be discontinued at his request 12/22/20: Home O2 evaluation tomorrow for DC Wednesday DM education will be provided DC planned for NH 12/21/20: Doing well Slept well BM today Edema improved on KRIS's Decubitus ulcers worsened due to sitting in chair all day long IS use increased 12/20/20: Now has daily complaints about minor things since he was notified last week he would need a [place] Nurse broke his grabber so will obtain replacement for him Butt paste placed on buttocks Stage 2 No other issues 12/19/20: No major issues Bowels are moving intermediate placement on Wednesday12/18/20: Discharge Wednesday to the senior care Family training did not go well Son was there but did not engage Insists on going home but that would not be a possibility Placing Alevin on buttock 12/17/20: Family training today at 10:00 Still has a stage 2 buttock decubitus ulcer Overall feels like he is doing much better Son at bedside when I rounded later today and he was evaluating his progress 12/16/20: Pt doing pretty well Bowels moved today Left midline is functioning Blood sugar 147 Stage 2 decubitus ulcer on the buttock Working really hard to stand 12/15/20: Overall doing well No issues BM+ No falls 12/14/20: Doing well BM+ Dyspnea still continues No pain 12/13/20: Patient more alert today and energized No pain reported Oxycodone helps the foot pain Participating with therapy 12/12/20: Pt doing a lot better Having a lot of pain, takes Oxycodone for his foot and leg pain Bowels are moving Sleeping better Pt very well could require a senior care since he lives alone and is just not progressing well 12/11/20: No major issues Pretty much has plateaued and not made much progress with ambulation Epistaxis of the left nostril Nasal sprays will be continued Re-check and check with insurance coverage but he very well may need to be in a senior care 12/10/20: Pt doing pretty well Slept on and off last night Remains on 4 liters of O2 Swelling in his feel is pretty minimal Did not use his BiPAP last night and that likely is the cause of not sleeping well 12/09/20: Pt slept pretty well Bowels are moving PLTs are 97, 000 Normal WBC down from 21 when he first arrived Denies any significant issues Trying to get strong enough to walk 12/08/20: Slept well last night Remeron and Melatonin has helped him a lot Sinus tachy last night BM 12/06/20 so laxatives given No other issues 12/07/20: Slept better Yonker provided for phlem HR 60 Appreciate Cardiology 4L/min O2 BM 12/06/20 12/06/20: HR 122 Cardiology consulted Sugar 54 so decreasing insulin BM++ No pain reported No sleeping well so added hypnotics of Melatonin and Remeron 12/05/20: Patient doing well Worn out from fatigue Sugars are ok No pain reported Tachycardic so consulting Dr Carranza Midline was accidently pulled out so need a new one placed Checked meds and labs Review of Systems General: Fatigue, Malaise Pulmonary: Dyspnea Cardiovascular: Edema Neurological: Weakness Focused Exam Lactate Level 01/07/21 12:00: Lactic Acid Level 2.14*H 01/07/21 14:15: Lactic Acid Level 1.71 Objective Exam Vital Signs Vital Signs Date Time Temp Pulse Resp B/P (MAP) Pulse Ox O2 Delivery O2 Flow Rate FiO2 01/10/21 04:24 37.9 100 20 132/59 (83) 97 NIV CPAP 5.00 Capillary Refill : General Appearance: No Apparent Distress, WD/WN, Anxious, Chronically ill, Obese HEENT: PERRL/EOMI, Normal ENT Inspection, Pharynx Normal Neck: Full Range of Motion, Normal Inspection, Non Tender, Supple, Carotid Bruit Respiratory: Chest Non Tender, Lungs Clear, No Accessory Muscle Use, No Respiratory Distress, Decreased Breath Sounds Cardiovascular: Regular Rate, Rhythm, No Gallop, No JVD, No Murmur, Normal Peripheral Pulses Gastrointestinal: Normal Bowel Sounds, No Organomegaly, No Pulsatile Mass, Non Tender, Soft Back: Normal Inspection, No CVA Tenderness, No Vertebral Tenderness Extremity: Normal Capillary Refill, Normal Inspection, Normal Range of Motion, Non Tender, No Calf Tenderness, Pedal Edema Neurologic/Psychiatric: Alert, Oriented x3, No Motor/Sensory Deficits, 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 FIM Transfers Therapy Code Descriptions/Definitions Functional [place] Measure: 0=Not Assessed/NA 4=Minimal Assistance 1=Total Assistance 5=Supervision or Setup 2=Maximal Assistance 6=Modified [place] 3=Moderate Assistance 7=Complete IndependenceSCALE: Activities may be completed with or without assistive devices. 8-[id number]-[id number] completes the activity by him/herself with no assistance from a helper. 5-Set-up or Clean-up Assistance-helper sets up or cleans up; patient completes activity. Max assists only prior to or following the activity. 4-Supervision or Touching Assistance-helper provides verbal cues and/or touching/steadying and/or contact guard assistance as patient completes activity. Assistance may be provided throughout the activity or intermittently. 3-Partial/Moderate Assistance-helper does LESS THAN HALF the effort. Max lifts, holds or supports trunk or limbs, but provides less than half the effort. 2-Substantial/Maximal Assistance-helper does MORE THAN HALF the effort. Max lifts or holds trunk or limbs and provides more than half the effort. 1-Phokdrgov-jgtnfi does ALL the effort. Patient does none of the effort to complete the activity. Or, the assistance of 2 or more helpers is required for the patient to complete the activity. If activity was not attempted, code reason: 7-Patient Refused. 9-Not Applicable-not attempted and the patient did not perform the activity before the current illness, exacerbation or injury. 10-Not Attempted due to Environmental Limitations-(lack of equipment, weather restraints, etc.). 88-Not Attempted due to Medical Conditions or Safety Concerns. Roll Left to Right (QC): 6 Sit to Lying (QC): 2 Sit to Stand (QC): 2 Chair/Amn-ng-Jbwqy Xfer(QC): 3 Car Transfer (QC): 88 Gait Training Does the Patient Walk?: Yes Distance: 15' Walk 10 feet (QC): 4 Walk 50 ft with 2 Turns(QC): 88 Walk 150 ft (QC): 88 Walking 10ft/uneven surface-QC: 88 Gait Persons Needed: 1 Gait Assistive Device: FWW Wheelchair Training Does the Pt Use a Wheelchair?: Yes Wheel 50 ft with 2 turns (QC): 3 Wheel 150 ft (QC): 4 Type of Wheelchair: Manual Stair Training #of Steps: 1 1 Step (curb) (QC): 88 4 Steps (QC): 88 12 Steps (QC): 88 Stairs: Pattern: Step to Balance Picking up an Object (QC): 88 ADL-Treatment Eating (QC): 6 Oral Hygiene (QC): 7 Bathing Location: L Arm, R Arm, L Upper Leg, R Upper Leg, Chest, Abdomen, Perineal Area Shower/Bathe Self (QC): 7 (Pt. continues to decline showering this date. States, "I just don't feel like it.") Upper Body Dressing (QC): 4 Lower Body Dressing (QC): 1 (Assist in stance by PT for upright posture, and OT doffed shorts down over hips.) On/Off Footwear (QC): 2 Toileting Hygiene (QC): 1 Toilet Transfer (QC): 1 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 Obesity DM Neuropathy Anemia 7.4 on 01/06/21 but declined transfusion and iron infusions until changing mind s/p 2 units blood 01/07/21 O2 dependence Right great toe pain consulted Dr Rob 12/30/20 dx with gout and placed on Indocin Early sepsis 01/07/21 due to PNA placed on abx and IVF Plan: IRF protocol Monitor O2 O2 supplement 12/05/20: O2 maintained IRF protocol Cardiology consultation appreciated Midline replacement 12/06/20: Cardiology consult appreciated Decrease insulin Midline Monitor closely 12/07/20: Monitor closely O2 wean Increase acitivity Maintain Remeron and Melatonin 12/08/20: Monitor closely Check labs in am Monitor tachycardia Remeron and Melatonin 12/09/20: Labs normal Improved strength Weaning O2 Monitor insomnia Increase insulin 12/10/20: Monitor O2 Increase strength Severe myopathy of legs 12/11/20: Difficult to progress Continue therapy May need NHP 12/12/20: Pain control with Oxycodone Monitor bowels Monitor O2 12/13/20: Monitor pain Wean O2 CPAP mask seems to be working better 12/14/20: Improved status Stood up today with help O2 12/15/20: Wean O2 Monitor ambulation CPAP at night 12/16/20: Monitor progress Decubitus ulcer management Monitor BP 12/17/20: Family education/training today Monitor O2 CPAP with O2 12/18/20: Monitor O2 NH Wednesday Continue to work on stamina 12/19/20: Monitor O2 CPAP 12/20/20: Decubitus ulcer management Monitor O2 Replace grabber 12/21/20: Monitor O2 KRIS CPAP 12/22/20: DC Wednesday to [place] Home O2 evaluation 12/23/20: DC midline DC tomorrow to [place] Needs eye exam soon for blurry vision 12/24/20: DC on hold Monitor O2 12/25/20: Continue therapy Making significant progress 12/26/20: Monitor progress Standing now May be able to DC home? 12/27/20: Much improved status Improved standing No pain reported 12/28/20: Walked a bit but he gets discouraged so quickly Pain controlled in his foot Monitor cough 12/29/20: Started scheduled insulin AC Adjusted Levemir to 10 units HS since sugars are low in am and maintained Levemir 20 units at bfast Check labs in am 12/30/20: Right great toe pain eval by Dr Rob Check uric acid and xray Monitor sugar 12/31/20: Indocin for gout Monitor closely Pain control 01/01/21: Gout treatment Monitor closely Pain control IRF protocol 01/02/21: O2 Gout treatment Monitor dyspnea 01/03/21: Gout treatment Monitor O2 and dyspnea 01/04/21: O2 wean Monitor foot pain Indocin taper 01/05/21: Monitor low BP Change Gabapentin to BID from TID 01/06/21: Hgb 7.4 but patient declines transfusion and iron infusions Monitor O2 01/07/21: Blood transfusions [address] Zuñiga consultation Cardiology appreciated Hold OAC 01/08/21: HLIVF IV abx Appreciate Dr Zuñiga Monitor hgb Hold OAC 01/09/21: Hgb stable Restarted OAC Allopurinol started yesterday Wraps to legs Abx (1) COVID-19 (2) RICHY on CPAP (3) Obesity (4) Diabetes (5) Hypertension (6) Edema (7) Neuropathy (8) Anemia (9) Advanced age (10) Gout DEANNA BOO DO Jan 09, 2021 07:09
[2021-01-09 07:19] LABS: ANISOCYTOSIS MODERATE; BAND NEUTROPHILS 2 %; EOSINOPHILS % (MANUAL) 1 %; LYMPHOCYTES % (MANUAL) 12 %; MICROCYTOSIS SLIGHT; MONOCYTES % (MANUAL) 15 %; NEUTROPHILS % (MANUAL) 70 %; NUCLEATED RED BLOOD CELLS 2; POIKILOCYTOSIS SLIGHT; POLYCHROMASIA MODERATE
[2021-01-09] MEDS: ASCORBIC ACID (VIT C) 500 MG TABLET PO SCH ×2 (07:45→17:31)
[2021-01-09] MEDS: ALLOPURINOL 100 MG (ZYLOPRIM) TAB PO SCH (07:46)
[2021-01-09] MEDS: GABAPENTIN 100 MG (NEURONTIN) CAP PO SCH ×2 (08:01→21:22)
[2021-01-09] MEDS: TAMSULOSIN 0.4 MG (FLOMAX) CAP PO SCH (08:01)
[2021-01-09] MEDS: VITAMIN D3 25 MCG (1,000 UNITS) TABLET PO SCH (08:01)
[2021-01-09] MEDS: PANTOPRAZOLE 40 MG (PROTONIX) TAB PO SCH ×2 (08:01→21:22)
[2021-01-09] MEDS: FINASTERIDE (PROSCAR) 5 MG TAB PO SCH (08:01)
[2021-01-09] MEDS: SENNA W/DOCUSATE (SENOKOT S) TABLET PO SCH ×2 (08:02→21:23)
[2021-01-09] MEDS: polyethylene glycoL POWDER 17 GM (MIRALAX) PACK PO SCH ×2 (08:02→21:22)
[2021-01-09] MEDS: DOCUSATE SODIUM 100 MG (COLACE) CAP PO SCH ×2 (08:02→21:21)
[2021-01-09] MEDS: SALINE NASAL SPRAY (OCEAN) 45 ML BTL NS SCH ×3 (08:03→21:27)
[2021-01-09] MEDS: FLUTICASONE NASAL SPRAY (FLONASE) 16 GM BTL NS SCH (08:03)
[2021-01-09] MEDS: SALIVA STIMULANT MOUTH SPRAY (BIOTENE) 1.5 OZ MM SCH ×4 (08:03→21:31)
[2021-01-09 08:06] VITALS: BP 110/55
[2021-01-09] MEDS: UMECLIDINIUM BROMIDE (INCRUSE ELLIPTA) 7'S IH SCH (09:13)
[2021-01-09] MEDS: ADVAIR HFA 115/21 MCG INHALER 8 GM IH SCH ×2 (09:13→19:57)
--- NOTE | 2021-01-09 09:19 | Physical Therapy Daily Note ---
PT Daily Note-Current Subjective Patient in bed pre tx, agrees to PT, states his pain in his feet has improved a little. Will be co-treating with OT due to poor patient mobility, strength, endurance, severe SOB with activity, coordinate UE and LE during activity, safety and reduce risk of falls. Appearance Patient in WC in room post tx, will continue for a bit with OT. Mental Status Patient Orientation: Person, Place, Situation Attachments: Oxygen, IV Transfers SCALE: Activities may be completed with or without assistive devices. 0-Bltvsauxoy-wbamofd completes the activity by him/herself with no assistance from a helper. 5-Set-up or Clean-up Assistance-helper sets up or cleans up; patient completes activity. [place] assists only prior to or following the activity. 4-Supervision or Touching Assistance-helper provides verbal cues and/or touching/steadying and/or contact guard assistance as patient completes activity. Assistance may be provided throughout the activity or intermittently. 3-Partial/Moderate Assistance-helper does LESS THAN HALF the effort. [place] lifts, holds or supports trunk or limbs, but provides less than half the effort. 2-Substantial/Maximal Assistance-helper does MORE THAN HALF the effort. [place] lifts or holds trunk or limbs and provides more than half the effort. 8-Xsuittseu-jtxrpp does ALL the effort. Patient does none of the effort to complete the activity. Or, the assistance of 2 or more helpers is required for the patient to complete the activity. If activity was not attempted, code reason: 7-Patient Refused. 9-Not Applicable-not attempted and the patient did not perform the activity before the current illness, exacerbation or injury. 10-Not Attempted due to Environmental Limitations-(lack of equipment, weather restraints, etc.). 88-Not Attempted due to Medical Conditions or Safety Concerns. Roll Left & Right (QC): 6 Lying to Sitting/Side of Bed(Q: 3 Sit to Stand (QC): 2 Chair/Mco-gg-Usjxz Xfer(QC): 2 Patient supine to sit with min assist, sit to stand max assist and transfer with RW max assist to . After some WC mobility training took patient to shower room to co-treat with OT for shower. Patient had to stand twice with therapist assist for cleaning and dressing, assisted with positioning and safety during shower. Weight Bearing Full Weight Bearing Full Weight Bearing Wheelchair Training Does the Pt Use a Wheelchair?: Yes Wheel 50 ft with 2 turns (QC): 3 Type of Wheelchair: Manual 100', 120' Exercises Seated Therapy Exercises: Ankle pumps, Hip flexion Seated Reps: 20 LAQ alternating for 5 min Treatments PT worked on bed mobility and transfers, WC mobility, standing during shower, safety and positioning during shower, OT worked on shower and dressing, UE positioning and safety during activity. Assessment Current Status: Poor Progress Patient had much difficulty taking steps during transfer to , could not completely turn before sitting and needed therapist assist to land safely. Patient is more SOB, needs more rest breaks, fatigues very quickly. PT Short Term Goals Short Term Goals Time Frame: Dec 11, 2020 Roll Left & Right: 4 (met) Sit to lyin (met) Lying to sitting on side of be: 4 (met) Sit to stand: 3 Chair/vwk-wm-avozv transfer: 3 Walk 10 feet: 3 Walk 50 feet with two turns: 3 PT Long-Term Goals Long-Term Goals PT Media Marketing Manager Goals Time Frame: Jan 01, 2021 Roll Left & Right (QC): 6 Sit to Lying (QC): 6 Lying-Sitting on Side/Bed(QC): 6 Sit to Stand (QC): 6 Chair/Ygw-hh-Xlywv Xfer(QC): 6 Toilet Transfer (QC): 6 Car Transfer (QC): 6 Does the Patient Walk: No and Walking Goal IS indicated Walk 10 feet (QC): 6 Walk 50ft with 2 Turns (QC): 6 Walk 150 ft (QC): 6 Walking 10ft on Uneven Surface: 4 1 Step (curb) (QC): 4 4 Steps (QC): 4 12 Steps (QC): 4 Picking up an Object (QC): 5 Does the Pt use WC or Scooter?: No Wheel 50 feet with 2 turns (QC: 9 Wheel 150 feet: 9 PT Plan Problem List Problem List: Activity Tolerance, Functional Strength, Safety, Balance, Gait, Transfer, Bed Mobility, ROM Treatment/Plan Treatment Plan: Continue Plan of Care Treatment Plan: Bed Mobility, Education, Functional Activity Erick, Functional Strength, Group Therapy, Gait, Safety, Therapeutic Exercise, Transfers Treatment Duration: Jan 01, 2021 Frequency: At least 5 of 7 days/Wk (IRF) Estimated Hrs Per Day: Other (see notation) Patient and/or Family Agrees t: Yes Safety Risks/Education Patient Education: Transfer Techniques, Correct Positioning, W/C Management, Safety Issues Teaching Recipient: Patient Teaching Methods: Demonstration, Discussion Response to Teaching: Reinforcement Needed Time/GCodes Time In: 799 Time Out: 914 Total Billed Treatment Time: 75 Total Billed Treatment 1 visit EX 15' FA 60' co-treated with OT from [id number] JENSEN AMBRIZ PT Jan 09, 2021 09:19
[2021-01-09] MEDS: APIXABAN 5 MG (ELIQUIS) TABLET PO SCH ×2 (09:37→21:21)
--- NOTE | 2021-01-09 09:50 | Occupational Ther Daily Note ---
OT Current Status-Daily Note Subjective No pain reported. Appearance Pt. up with PT when OT entered gym. Agrees to work with OT as well. Mental Status/Objective Patient Orientation: Person, Place, Time, Situation Attachments: IV, Oxygen, Telemetry ADL-Treatment Therapy Code Descriptions/Definitions Functional [place] Measure: 0=Not Assessed/NA 4=Minimal Assistance 1=Total Assistance 5=Supervision or Setup 2=Maximal Assistance 6=Modified [place] 3=Moderate Assistance 7=Complete IndependenceSCALE: Activities may be completed with or without assistive devices. 1-Obmbzsezfs-pxuyxzz completes the activity by him/herself with no assistance from a helper. 5-Set-up or Clean-up Assistance-helper sets up or cleans up; patient completes activity. [place] assists only prior to or following the activity. 4-Supervision or Touching Assistance-helper provides verbal cues and/or touching/steadying and/or contact guard assistance as patient completes activity. Assistance may be provided throughout the activity or intermittently. 3-Partial/Moderate Assistance-helper does LESS THAN HALF the effort. [place] lifts, holds or supports trunk or limbs, but provides less than half the effort. 2-Substantial/Maximal Assistance-helper does MORE THAN HALF the effort. [place] lifts or holds trunk or limbs and provides more than half the effort. 8-Zydgmcbca-thhkze does ALL the effort. Patient does none of the effort to complete the activity. Or, the assistance of 2 or more helpers is required for the patient to complete the activity. If activity was not attempted, code reason: 7-Patient Refused. 9-Not Applicable-not attempted and the patient did not perform the activity befo re the current illness, exacerbation or injury. 10-Not Attempted due to Environmental Limitations-(lack of equipment, weather re straints, etc.). 88-Not Attempted due to Medical Conditions or Safety Concerns. Eating (QC): 6 Oral Hygiene (QC): 6 Shower/Bathe Self (QC): 3 (Pt. requires assistance in shower to wash and dry rear yo area. Pt. utilizes LH sponge for LE.) Upper Body Dressing (QC): 3 (Min assist to don shirt due to IV.) Lower Body Dressing (QC): 2 (Pt. requires assistance for doff/donning shorts in stance.) On/Off Footwear: 2 Other Treatment OT/PT completed partial co-treatment due to need for skilled assistance in shower x 2, low endurance and activity tolerance. PT assisted with all transfers and standing balance while OT assisted with ADLs. Pt. is able to shower and requires assistance for dressing. Multiple rest breaks taken throughout. Pt. on 4L 02. Pt. self propels wheelchair but requires assistance at times due to fatigue and maneuvering around corners. Pt. stands several times at grab bars in shower room, with max assist. Back in room, pt. is able to brush teeth and hair, and groom truong while at this sink from wheelchair level. All needs met up in chair. Education OT Patient Education: Correct positioning, Modified ADL techniques, Progress toward Goal/Update tx plan, Purpose of tx/functional activities, Reviewed precautions, Rehab process, Transfer techniques Teaching Recipient: Patient Teaching Methods: Demonstration, Discussion Response to Teaching: Verbalize Understanding, Return Demonstration OT Short Term Goals Short Term Goals Time Frame: Dec 11, 2020 Eatin Oral hygiene: 88 Toileting hygiene: 2 Shower/bathe self: 3 Upper body dressin Lower body dressin Putting on/taking off footwear: 6 OT Nursing Home Goals Neuropathologist Goals Time Frame: Dec 25, 2020 Eating (QC): 6 Oral Hygiene (QC): 6 Toileting Hygiene (QC): 5 Shower/Bathe Self (QC): 5 Upper Body Dressing (QC): 6 Lower Body Dressing (QC): 4 On/Off Footwear (QC): 6 Additional Goals: 1-Demonstrate ADL Tasks, 2-Verbalize Understanding, 3- ImproveStrength/Erick 1=Demonstrate adherence to instructed precautions during ADL tasks. 2=Patient will verbalize/demonstrate understanding of assistive devices/modifications for ADL. 3=Patient will improve strength/tolerance for activity to enable patient to perform ADL's. OT Education/Plan Problem List/Assessment Assessment: Decreased Activ Tolerance, Decreased UE Strength, Dependent Transfers, Impaired Funct Balance, Impaired I ADL's, Impaired Self-Care Skills Discharge Recommendations Plan/Recommendations: Continue POC Therapy Discharge Recommendati: 24 Hour Supervision Treatment Plan/Plan of Care Treatment,Training & Education: Yes Patient would benefit from OT for education, treatment and training to promote independence in ADL's, mobility, safety and/or upper extremity function for ADL's. Plan of Care: ADL Retraining, Caregiver Training, Functional Mobility, Group Exercise/Act as Ind, UE Funct Exercise/Act Treatment Duration: Dec 25, 2020 Frequency: Modified Program (IRF) Estimated Hrs Per Day: 1.5 hours per day Agreement: Yes Rehab Potential: Fair Time/GCodes Start Time: 08:30 Stop Time: 09:45 Total Time Billed (hr/min): 75 Billed Treatment Time 1, FA x 15minutes, ADL x [id number] with PT ADL x 30minutes CAMILA SINCLAIR OT Jan 09, 2021 09:50
--- NOTE | 2021-01-09 10:04 | Progress Note - Cardiology ---
Cardiology SOAP Progress Note Subjective: Up to w/c SOB, chronic, unchanged Objective: I&O/Vital Signs 01/09/21 01/09/21 01/09/21 01/09/21 04:00 06:59 08:06 09:11 Temp 36.2 36.8 Pulse 78 108 102 Resp 20 20 B/P (MAP) 116/52 (73) 110/55 (73) Pulse Ox 97 93 90 O2 Delivery NIV CPAP Nasal Cannula Nasal Cannula O2 Flow Rate 4.00 4.00 01/09/21 01/09/21 01/09/21 01/09/21 09:13 09:18 12:18 12:39 Temp 37.0 Pulse 109 104 Resp 20 B/P (MAP) 120/55 (76) Pulse Ox 93 91 O2 Delivery Nasal Cannula Nasal Cannula O2 Flow Rate 4.00 6.00 01/09/21 15:32 Pulse Ox 93 O2 Delivery Nasal Cannula O2 Flow Rate 5.00 01/09/21 00:00 Intake Total 1300 ml Output Total 1550 ml Balance -250 ml Constitutional: other (somnolent) Respiratory: chest is bilaterally symmetric, other (fair to good, bilateral air entry) Cardiovascular: irregularly irregular, tachycardia, S1 and S2, systolic murmur (soft YANET at card base) Gastrointestional: soft, audible bowel sounds Extremities: other (mild to mod, bilateral leg edema), significant edema (bilaterla) Neurologic/Psychiatric: other (somnolent, seems to be able to move all limbs) Skin: No rash on exposed areas, No ulcerations on exposed areas Results/Procedures: Labs Laboratory Tests 01/08/21 16:32: Glucometer 146H 01/08/21 20:05: Glucometer 154H 01/09/21 03:45: White Blood Count 6.5, Red Blood Count 2.78L, Hemoglobin 8.2L, Hematocrit 26L, Mean Corpuscular Volume 94, Mean Corpuscular Hemoglobin 30, Mean Corpuscular Hemoglobin Concent 31L, Red Cell Distribution Width 19.4H, Platelet Count 186, Mean Platelet Volume 9.6, Immature Granulocyte % (Auto) 2, Neutrophils (%) (Auto) 65, Lymphocytes (%) (Auto) 12, Monocytes (%) (Auto) 21H, Eosinophils (%) (Auto) 1, Basophils (%) (Auto) 1, Neutrophils # (Auto) 4.2, Lymphocytes # (Auto) 0.8L, Monocytes # (Auto) 1.3H, Eosinophils # (Auto) 0.0, Basophils # (Auto) 0.0, Immature Granulocyte # (Auto) 0.1, Neutrophils % (Manual) 70, Lymphocytes % (Manual) 12, Monocytes % (Manual) 15, Eosinophils % (Manual) 1, Band Neutrophils 2, Nucleated Red Blood Cells 2, Polychromasia MODERATE, Poikilocytosis SLIGHT, Anisocytosis MODERATE, Microcytosis SLIGHT, Macrocytosis SLIGHT, Sodium Level 138, Potassium Level 3.4L, Chloride Level 101, Carbon Dioxide Level 25, Anion Gap 12, Blood Urea Nitrogen 13, Creatinine 1.22, Estimat Glomerular Filtration Rate 57, BUN/Creatinine Ratio 11, Glucose Level 101, Calcium Level 8.2L, Corrected Calcium 9.2, Total Bilirubin 1.0, Aspartate Amino Transf (AST/SGOT) 14, Alanine Aminotransferase (ALT/SGPT) 16, Alkaline Phosphatase 49, Total Protein 5.7L, Albumin 2.8L, Procalcitonin 0.49H, Vancomycin Level Trough 28.4*H 01/09/21 05:56: Glucometer 98 01/09/21 10:54: Glucometer 154H 01/09/21 15:42: Glucometer 122H Microbiology 01/07/21 MRSA Screen - Final, Complete MRSA not isolated 01/07/21 Blood Culture - Preliminary, Resulted No growth A/P: Assessment: Probable L-sided pneumonia and sepsis with borderline hypotension Sinus tachycardia, likely due to sepsis/pneumonia - improved Severe anemia of undetermined etiology, treated with 2 U PRBC on 01/07/21 - H/H improved Paroxysmal atrial fibrillation, occult stool negative - OAC has been resumed Critical illness myopathy, COVID-19 RICHY, treated with CPAP, managed by Dr Dawkins Plan: * Complex management due to multiple comorbidities * Dr Dawkins managing pneumonia, sepsis, and anemia * Occult negative * OAC has been resumed * Management of anemia per medical services * HR better controlled with calcium channel ran * BP improved today * CXR this morning * Monitor labs DONA VALIENTE Jan 09, 2021 10:04
--- NOTE | 2021-01-09 11:06 | Diagnostic Imaging Report ---
Indication: Pneumonia. Time of exam: 10:01 AM Correlation is made with prior chest one day earlier. There are patchy infiltrates in the midlung moran bilaterally, stable. Heart is enlarged. No effusion or pneumothorax is identified. Impression: Stable bilateral infiltrates when compared with exam one day earlier. Dictated by: Dictated on workstation # [id number]
[2021-01-09 12:18] VITALS: BP 120/55
--- NOTE | 2021-01-09 14:33 | Progress Note - Cardiology ---
Cardiology SOAP Progress Note Subjective: Gen malaise and weakness Poor stamina No shortness of breath at rest No cp or palp or syncope No n/v/d Feels shaky Objective: I&O/Vital Signs 01/09/21 01/09/21 01/09/21 01/09/21 04:00 06:59 08:06 09:11 Temp 36.2 36.8 Pulse 78 108 102 Resp 20 20 B/P (MAP) 116/52 (73) 110/55 (73) Pulse Ox 97 93 90 O2 Delivery NIV CPAP Nasal Cannula Nasal Cannula O2 Flow Rate 4.00 4.00 01/09/21 01/09/21 01/09/21 01/09/21 09:13 09:18 12:18 12:39 Temp 37.0 Pulse 109 104 Resp 20 B/P (MAP) 120/55 (76) Pulse Ox 93 91 O2 Delivery Nasal Cannula Nasal Cannula O2 Flow Rate 4.00 6.00 01/09/21 00:00 Intake Total 1300 ml Output Total 1550 ml Balance -250 ml Constitutional: other (somnolent) Respiratory: chest is bilaterally symmetric, other (fair to good, bilateral air entry) Cardiovascular: irregularly irregular, tachycardia, S1 and S2, systolic murmur (soft YANET at card base) Gastrointestional: soft, audible bowel sounds Extremities: other (mild to mod, bilateral leg edema), significant edema (bilat erla) Neurologic/Psychiatric: other (somnolent, seems to be able to move all limbs) Skin: No rash on exposed areas, No ulcerations on exposed areas Results/Procedures: Labs Laboratory Tests 01/08/21 16:32: Glucometer 146H 01/08/21 20:05: Glucometer 154H 01/09/21 03:45: White Blood Count 6.5, Red Blood Count 2.78L, Hemoglobin 8.2L, Hematocrit 26L, Mean Corpuscular Volume 94, Mean Corpuscular Hemoglobin 30, Mean Corpuscular Hemoglobin Concent 31L, Red Cell Distribution Width 19.4H, Platelet Count 186, Mean Platelet Volume 9.6, Immature Granulocyte % (Auto) 2, Neutrophils (%) (Auto) 65, Lymphocytes (%) (Auto) 12, Monocytes (%) (Auto) 21H, Eosinophils (%) (Auto) 1, Basophils (%) (Auto) 1, Neutrophils # (Auto) 4.2, Lymphocytes # (Auto) 0.8L, Monocytes # (Auto) 1.3H, Eosinophils # (Auto) 0.0, Basophils # (Auto) 0.0, Immature Granulocyte # (Auto) 0.1, Neutrophils % (Manual) 70, Lymphocytes % (Manual) 12, Monocytes % (Manual) 15, Eosinophils % (Manual) 1, Band Neutrophils 2, Nucleated Red Blood Cells 2, Polychromasia MODERATE, Poikilocytosis SLIGHT, Anisocytosis MODERATE, Microcytosis SLIGHT, Macrocytosis SLIGHT, Sodium Level 138, Potassium Level 3.4L, Chloride Level 101, Carbon Dioxide Level 25, Anion Gap 12, Blood Urea Nitrogen 13, Creatinine 1.22, Estimat Glomerular Filtration Rate 57, BUN/Creatinine Ratio 11, Glucose Level 101, Calcium Level 8.2L, Corrected Calcium 9.2, Total Bilirubin 1.0, Aspartate Amino Transf (AST/SGOT) 14, Alanine Aminotransferase (ALT/SGPT) 16, Alkaline Phosphatase 49, Total Protein 5.7L, Albumin 2.8L, Procalcitonin 0.49H, Vancomycin Level Trough 28.4*H 01/09/21 05:56: Glucometer 98 01/09/21 10:54: Glucometer 154H Microbiology 01/07/21 MRSA Screen - Final, Complete MRSA not isolated 01/07/21 Blood Culture - Preliminary, Resulted No growth A/P: Assessment: Probable L-sided pneumonia and sepsis with borderline hypotension Sinus tachycardia, likely due to sepsis/pneumonia - improved Severe anemia of undetermined etiology, treated with 2 U PRBC on 01/07/21 - H/H improved Paroxysmal atrial fibrillation, occult stool negative - OAC has been resumed Critical illness myopathy, COVID-19 RICHY, treated with CPAP, managed by Dr Dawkins Plan: * Complex management due to multiple comorbidities * Dr Dawkins managing pneumonia, sepsis, and anemia * Occult negative * OAC has been resumed * Management of anemia per medical services * Symptoms and bp still unstable * Monitor labs KENDRA LINDSAY MD FACP FAC CCDS Jan 09, 2021 14:33
[2021-01-09 15:59] VITALS: BP 113/56
[2021-01-09 20:00] VITALS: BP 111/55
[2021-01-09] MEDS: MELATONIN 3 MG TABLET PO SCH (21:22)
[2021-01-09] MEDS: MIRTAZAPINE 15 MG (REMERON) TAB PO SCH (21:23)
[2021-01-10] VITALS (7 sets, daily range): BP systolic 107–137; BP diastolic 56–62
[2021-01-10] MEDS: RT-ALBUTEROL/IPRATROPIUM 3 ML (DUONEB) VIAL IH SCH ×4 (01:57→18:42)
[2021-01-10] MEDS: inSUlin ASPART (NovoLOG) 1 UNIT/0.01 ML (CHARGE PER UNIT) SC SCH ×7 (05:54→20:04)
[2021-01-10] MEDS: PIPERACILLIN/TAZOBACTAM (BULK) 4.5 GM in NS (IVPB) 100 ML IV SCH ×3 (05:59→22:27)
--- NOTE | 2021-01-10 06:35 | Pulmonary Progress Note ---
Standard Progress Note Progress Notes Date Seen by Provider: Jan 10, 2021 Time Seen by Provider: 06:33 Assessment & Plan PNA -Zosyn - hinton cultures-- Negative thus far -CXR and labs reviewed - urine strep and legionella Ag -Monitor s/p COVID 19 with current Myopathy/debility -PT/OT RICHY -CPAP therapy Obesity Anemia -Monitor Focused Exam Lactate Level 01/07/21 12:00: Lactic Acid Level 2.14*H 01/07/21 14:15: Lactic Acid Level 1.71 ONESIMO BAUMANN DO Jan 10, 2021 06:35
[2021-01-10] MEDS: ADVAIR HFA 115/21 MCG INHALER 8 GM IH SCH ×2 (07:32→18:42)
[2021-01-10] MEDS: UMECLIDINIUM BROMIDE (INCRUSE ELLIPTA) 7'S IH SCH (07:32)
[2021-01-10] MEDS: FINASTERIDE (PROSCAR) 5 MG TAB PO SCH (08:29)
[2021-01-10] MEDS: TAMSULOSIN 0.4 MG (FLOMAX) CAP PO SCH (08:29)
[2021-01-10] MEDS: APIXABAN 5 MG (ELIQUIS) TABLET PO SCH ×2 (08:29→20:57)
[2021-01-10] MEDS: ASCORBIC ACID (VIT C) 500 MG TABLET PO SCH ×2 (08:29→17:52)
[2021-01-10] MEDS: GABAPENTIN 100 MG (NEURONTIN) CAP PO SCH ×2 (08:29→20:57)
[2021-01-10] MEDS: VITAMIN D3 25 MCG (1,000 UNITS) TABLET PO SCH (08:29)
[2021-01-10] MEDS: PANTOPRAZOLE 40 MG (PROTONIX) TAB PO SCH ×2 (08:29→21:00)
[2021-01-10] MEDS: IRON SUCROSE 200 MG/10 ML (VENOFER) VIAL IV SCH (08:30)
[2021-01-10] MEDS: FLUTICASONE NASAL SPRAY (FLONASE) 16 GM BTL NS SCH (08:30)
[2021-01-10] MEDS: SALINE NASAL SPRAY (OCEAN) 45 ML BTL NS SCH ×3 (08:31→21:00)
[2021-01-10] MEDS: SALIVA STIMULANT MOUTH SPRAY (BIOTENE) 1.5 OZ MM SCH ×4 (08:31→21:00)
[2021-01-10] MEDS: polyethylene glycoL POWDER 17 GM (MIRALAX) PACK PO SCH ×2 (08:32→21:00)
[2021-01-10] MEDS: ACETAMINOPHEN 325 MG TABLET PO PRN ×2 (08:35→21:00)
[2021-01-10] MEDS: SENNA W/DOCUSATE (SENOKOT S) TABLET PO SCH ×2 (08:40→20:59)
[2021-01-10] MEDS: DOCUSATE SODIUM 100 MG (COLACE) CAP PO SCH ×2 (08:40→21:00)
[2021-01-10] MEDS: ALLOPURINOL 100 MG (ZYLOPRIM) TAB PO SCH (08:43)
--- NOTE | 2021-01-10 08:46 | Physical Therapy Daily Note ---
PT Daily Note-Current Subjective Patient in bed pre tx, agrees to PT, has 10/10 pain in left foot this morning, will be co-treating with OT for part of tx due to severe pain with activity, impaired mobility, strength, endurance, coordinate UE and LE during activity, safety and reduced risk of falls. Appearance Patient in bed post tx, will continue for a while with OT Mental Status Patient Orientation: Person, Place, Situation Attachments: Oxygen, IV Transfers SCALE: Activities may be completed with or without assistive devices. 5-Csyodaghps-epseusw completes the activity by him/herself with no assistance from a helper. 5-Set-up or Clean-up Assistance-helper sets up or cleans up; patient completes activity. [place] assists only prior to or following the activity. 4-Supervision or Touching Assistance-helper provides verbal cues and/or touching/steadying and/or contact guard assistance as patient completes activity. Assistance may be provided throughout the activity or intermittently. 3-Partial/Moderate Assistance-helper does LESS THAN HALF the effort. [place] lifts, holds or supports trunk or limbs, but provides less than half the effort. 2-Substantial/Maximal Assistance-helper does MORE THAN HALF the effort. [place] lifts or holds trunk or limbs and provides more than half the effort. 6-Yntcfpfzt-vzudox does ALL the effort. Patient does none of the effort to c omplete the activity. Or, the assistance of 2 or more helpers is required for the patient to complete the activity. If activity was not attempted, code reason: 7-Patient Refused. 9-Not Applicable-not attempted and the patient did not perform the activity before the current illness, exacerbation or injury. 10-Not Attempted due to Environmental Limitations-(lack of equipment, weather restraints, etc.). 88-Not Attempted due to Medical Conditions or Safety Concerns. Roll Left & Right (QC): 2 Sit to Lying (QC): 2 Lying to Sitting/Side of Bed(Q: 2 Max assist for supine to sit, attempted to use a sit to stand machine for transfer to since it lifts from the upper body and less weight is on legs but he could not do it due to left foot pain still. Sliding board transfer not able to do because of left foot pain from resting on the floor. Patient is also very weak and cannot assist much at all with transfers, he can barely even move his arms. Weight Bearing Full Weight Bearing Full Weight Bearing Exercises Supine Ex: Ankle pumps, Quad Set, Glut sets Supine Reps: 20 Treatments PT performed bed mobility, supine <-> sit, attempted transfers, LE exercise, OT performed UE positioning and safety during activity. Assessment Current Status: Poor Progress Patients vitals were BP 137/62, HR 101bpm, O2 92%. Patient has severe weakness and left foot pain. Patient is SOB with even minimal activity and says he "just can't do it today". PT Short Term Goals Short Term Goals Time Frame: Dec 11, 2020 Roll Left & Right: 4 (met) Sit to lyin (met) Lying to sitting on side of be: 4 (met) Sit to stand: 3 Chair/bkn-hq-oiiee transfer: 3 Walk 10 feet: 3 Walk 50 feet with two turns: 3 PT Fire Extinguisher Installer Goals Fire Extinguisher Installer Goals PT Fire Extinguisher Installer Goals Time Frame: Jan 01, 2021 Roll Left & Right (QC): 6 Sit to Lying (QC): 6 Lying-Sitting on Side/Bed(QC): 6 Sit to Stand (QC): 6 Chair/Btb-kl-Yaazf Xfer(QC): 6 Toilet Transfer (QC): 6 Car Transfer (QC): 6 Does the Patient Walk: No and Walking Goal IS indicated Walk 10 feet (QC): 6 Walk 50ft with 2 Turns (QC): 6 Walk 150 ft (QC): 6 Walking 10ft on Uneven Surface: 4 1 Step (curb) (QC): 4 4 Steps (QC): 4 12 Steps (QC): 4 Picking up an Object (QC): 5 Does the Pt use WC or Scooter?: No Wheel 50 feet with 2 turns (QC: 9 Wheel 150 feet: 9 PT Plan Problem List Problem List: Activity Tolerance, Functional Strength, Safety, Balance, Gait, Transfer, Bed Mobility, ROM Treatment/Plan Treatment Plan: Continue Plan of Care Treatment Plan: Bed Mobility, Education, Functional Activity Erick, Functional Strength, Group Therapy, Gait, Safety, Therapeutic Exercise, Transfers Treatment Duration: Jan 01, 2021 Frequency: At least 5 of 7 days/Wk (IRF) Estimated Hrs Per Day: Other (see notation) Patient and/or Family Agrees t: Yes Safety Risks/Education Patient Education: Correct Positioning, Safety Issues Teaching Recipient: Patient Teaching Methods: Demonstration, Discussion Response to Teaching: Reinforcement Needed Time/GCodes Time In: 0800 Time Out: 0845 Total Billed Treatment Time: 45 Total Billed Treatment 1 visit EX 15' FA 30' co-treated with OT for 15' JENSEN AMBRIZ PT Jan 10, 2021 08:46
--- NOTE | 2021-01-10 09:09 | Occupational Ther Daily Note ---
OT Current Status-Daily Note Subjective Pt AxO. OT/ PT co-treat for 15 min ([id number]), with OT addressing UE movement/ management of edema/ safety awareness while PT addresses LE movement/ LE strength. OT individual tx from 6421-0830 (25). Pt states 7/10 pain LLE and 5/10 RLE. Pt denies OOB or sponge bath in bed. Pt agrees to LE ex, UE ex, and retrograde massage. Pt AxO in recliner. Pt agrees to tx. States pain is "better." Mental Status/Objective Patient Orientation: Person, Place, Situation, Normal For Age Attachments: Oxygen ADL-Treatment Therapy Code Descriptions/Definitions Functional [place] Measure: 0=Not Assessed/NA 4=Minimal Assistance 1=Total Assistance 5=Supervision or Setup 2=Maximal Assistance 6=Modified [place] 3=Moderate Assistance 7=Complete IndependenceSCALE: Activities may be completed with or without assistive devices. 5-Gsryblgszk-wkfvlft completes the activity by him/herself with no assistance from a helper. 5-Set-up or Clean-up Assistance-helper sets up or cleans up; patient completes activity. [place] assists only prior to or following the activity. 4-Supervision or Touching Assistance-helper provides verbal cues and/or touching/steadying and/or contact guard assistance as patient completes activity. Assistance may be provided throughout the activity or intermittently. 3-Partial/Moderate Assistance-helper does LESS THAN HALF the effort. [place] lifts, holds or supports trunk or limbs, but provides less than half the effort. 2-Substantial/Maximal Assistance-helper does MORE THAN HALF the effort. [place] lifts or holds trunk or limbs and provides more than half the effort. 1-Dzsntqubj-lsjgkl does ALL the effort. Patient does none of the effort to complete the activity. Or, the assistance of 2 or more helpers is required for the patient to complete the activity. If activity was not attempted, code reason: 7-Patient Refused. 9-Not Applicable-not attempted and the patient did not perform the activity before the current illness, exacerbation or injury. 10-Not Attempted due to Environmental Limitations-(lack of equipment, weather restraints, etc.). 88-Not Attempted due to Medical Conditions or Safety Concerns. Eating (QC): 3 (Pt states fed self this am, though continued to "miss (his) mouth." Pt states undershot many times and required increased time/ concentration. Pt is educated on use of pillow to prop RUE during feeding. During med management, pt requires nursing to bring cup to mouth. Increased shaking BUE) Oral Hygiene (QC): 7 (denies, stating "no one is coming to visit for a few days.") Shower/Bathe Self (QC): 7 Upper Body Dressing (QC): 7 Lower Body Dressing (QC): 7 On/Off Footwear: 7 Toileting Hygiene (QC): 1 Toilet Transfer (QC): 7 Other Treatment Pt denies OOB. States immense pain in LEs. Pt's vitals: 94% 02, 137/62, and 102. OT/ PT educate pt on UE/ LE exercises. Pt completes gripping ex with red hand sponge. Pt denies sponge bathing, stating, "I just don't want to be messed with." Pt agrees to OT completing retrograde massage to calves/ shine and dorsum of feet. Pt able to tolerate, though less tolerance to LLE foot. Pt is adjusted in bed with TD, pressure relieving boots placed BLE. Pt denies needs currently, call light in reach. Pt left with nursing end of session. Pt in bed upon entry. Pt completes UE strengthening/ manipulation task with increased time/ 02 monitored with 02 reaching mid 80's, requires increased time and cues for breath. Pt completes 20 reps of the following: bicep curls, external shoulder rotation. Pt's bedding wet, completes rolling side/ side with max A and TD for bedding change/ bottom care. Pt is positioned end of treatment on R side with pillows to support for pressure relief. Nursing told of pt's positioning. 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 2=Patient will verbalize/demonstrate understanding of assistive devices/modifications for ADL. 3=Patient will improve strength/tolerance for activity to enable patient to perform ADL's. OT Education/Plan Problem List/Assessment Assessment: Decreased Activ Tolerance, Decreased UE Strength, Dependent Transfers, Edema, Impaired Bed Mobility, Impaired Funct Balance, Impaired I A DL's, Impaired Self-Care Skills Discharge Recommendations Plan/Recommendations: Continue POC Therapy Discharge Recommendati: 24 Hour Supervision, Post Acute OT Treatment Plan/Plan of Care Treatment,Training & Education: Yes Patient would benefit from OT for education, treatment and training to promote independence in ADL's, mobility, safety and/or upper extremity function for ADL's. Plan of Care: ADL Retraining, Caregiver Training, Functional Mobility, Group Exercise/Act as Ind, UE Funct Exercise/Act Treatment Duration: Dec 25, 2020 Frequency: Modified Program (IRF) Estimated Hrs Per Day: 1.5 hours per day Agreement: Yes Rehab Potential: Fair Time/GCodes Start Time: 08:30 (1400) Stop Time: 09:10 (1430) Total Time Billed (hr/min): 70 (40+30) Billed Treatment Time OT/ PT co-treat for 15 min ([id number]), with OT addressing UE movement/ management of edema/ safety awareness while PT addresses LE movement/ LE strength. OT individual tx from 8435-2580 (25). 1, MAS (15), EX 2 (25)= 40 1, ADL, EX= 30 Total: 70 CHAPARRO GOLDEN OTR Jan 10, 2021 09:09
--- NOTE | 2021-01-10 10:44 | PM&R Progress Note ---
Subjective HPI/CC On Admission Date Seen by Provider: Jan 10, 2021 Time Seen by Provider: 18:00 Subjective/Events-last exam 01/10/21: Patient getting more complicated IV abx maintained No pain reported except foot pain Not eating well Patient declined Checked meds and labs refusing therapy most of the time Indocin restarted by Dr Rob 01/09/21: Patient doing about the same Dr Zuñiga evaluated him and resp status is stable Hgb 8.2 his baseline for past few weeks. Zosyn maintained Vanc DC due to MRSA swab negative Allopurinol started yesterday Dr Rob Feet are edematous and venous stasis noted so recommended KRIS's and ZULEIKA wraps 01/08/21: Patient definitely declined since admitted but remains stable just more complicated 2 units of blood has increased hgb to 9.1 which has helped alertness Hemoccult was negative sent to lab today PPI on board OAC on hold Indocin done Dr Zuñiga saw patient and ordered Nebs IV abx maintained Complains of foot pain but not many more options for gout and neuropathy and chronic foot pain he was taking Oxycodone prior to admit before arrival 01/07/21: Patient more drowsy today. Started septic w/u and lactic acid was elevated at 2.1 so started gentle IVF and consulted Dr Zuñiga and started on abx empirically for bilateral ATX vs infiltrate Agreeable for transfusion now so ordered 2 units and will give iron infusion tomorrow also Complex case overall OHA is held Hemoccult stools ordered 01/06/21: Hgb 7.4 and discussed placement of midline for transfusion of 1 unit and/or iron infusions and after a great deal of thought he declines both Patient doing well otherwise Fatigue about the same NHP Occult stool ordered 01/05/21: Complains about sleeping all the time Changed Gabapentin to BID instead of TID Large BM daily Mildly low BP noted Tremor reported to RN but not discussed with me 01/04/21: Sugars improved 113 this am Foot pain improved Indocin taper maintained 01/03/21: Uric acid ordered by Dr Rob Toe is better Decubitus ulcer is improved No pain otherwise Severe dyspnea when active but he seems to not be bothered about it 01/02/21: Left foot pain occurred last night Right great toe improved since Indocin BM+ NHP at DC 01/01/21: Pt was slightly hypotensive today but cardiology is managing Indocin is helping the gout in his foot Bowels are moving 3.5 liters maintained DC planned for 01/08/21 to [place] 12/31/20: Dr. Rob diagnosed gout so Indocin was started Remains on 3.5 liters of O2 Scared to not use the sit to stand 12/30/20: Bowels moved yesterday Doing pretty well Right great toe pain so consulted Dr. Rob Uric acid will be added and X-ray of the right foot 12/29/20: Patient frustrated BM yesterday Sputum produced and sent down to lab? Sugar 196 No pain meds required today 12/28/20: Alevan on his buttock Coughed up some green sputum 3 times yesterday but lungs are clear BM large today Oxycodone for his left foot pain helped 2+ edema Sugar 167 He is very pessimistic about his overall progress which cannot be redirected 12/27/20: Transferring without the site to stand now Improved overall BM+ Alevan vs. butt paste on buttock He sits in chair all day long on computer 12/26/20: Insurance declined skilled for now Standing and actually progressing well 2L/min and doing well DC scheduled APAP TID 12/25/20: Awaiting mcc placement Actually working pretty well with therapy Denies any significant new pain Blurry vision still continues Didnt sleep real well last night 12/24/20: Eyes were better but the more he works on the computer the blurry issues return DC is on hold due to NH processes 12/23/20: Pt doing pretty well Buttock decubitus ulcer needs further treatment Discharge planned for tomorrow Hemaglobin 9.3 Midline will be discontinued at his request 12/22/20: Home O2 evaluation tomorrow for DC Wednesday DM education will be provided DC planned for [place] 12/21/20: Doing well Slept well BM today Edema improved on KRIS's Decubitus ulcers worsened due to sitting in chair all day long IS use increased 12/20/20: Now has daily complaints about minor things since he was notified last week he would need a [place] Nurse broke his grabber so will obtain replacement for him Butt paste placed on buttocks Stage 2 No other issues 12/19/20: No major issues Bowels are moving [facility] placement on Wednesday12/18/20: Discharge Wednesday to the mcc Family training did not go well Son was there but did not engage Insists on going home but that would not be a possibility Placing Sherrill on buttock 12/17/20: Family training today at 10:00 Still has a stage 2 buttock decubitus ulcer Overall feels like he is doing much better Son at bedside when I rounded later today and he was evaluating his progress 12/16/20: Pt doing pretty well Bowels moved today Left midline is functioning Blood sugar 147 Stage 2 decubitus ulcer on the buttock Working really hard to stand 12/15/20: Overall doing well No issues BM+ No falls 12/14/20: Doing well BM+ Dyspnea still continues No pain 12/13/20: Patient more alert today and energized No pain reported Oxycodone helps the foot pain Participating with therapy 12/12/20: Pt doing a lot better Having a lot of pain, takes Oxycodone for his foot and leg pain Bowels are moving Sleeping better Pt very well could require a mcc since he lives alone and is just not progressing well 12/11/20: No major issues Pretty much has plateaued and not made much progress with ambulation Epistaxis of the left nostril Nasal sprays will be continued Re-check and check with insurance coverage but he very well may need to be in a mcc 12/10/20: Pt doing pretty well Slept on and off last night Remains on 4 liters of O2 Swelling in his feel is pretty minimal Did not use his BiPAP last night and that likely is the cause of not sleeping well 12/09/20: Pt slept pretty well Bowels are moving PLTs are 97, 000 Normal WBC down from when he first arrived Denies any significant issues Trying to get strong enough to walk 12/08/20: Slept well last night Remeron and Melatonin has helped him a lot Sinus tachy last night BM 12/06/20 so laxatives given No other issues 12/07/20: Slept better Yonker provided for phlem HR 60 Appreciate Cardiology 4L/min O2 BM 12/06/20 12/06/20: HR 122 Cardiology consulted Sugar 54 so decreasing insulin BM++ No pain reported No sleeping well so added hypnotics of Melatonin and Remeron 12/05/20: Patient doing well Worn out from fatigue Sugars are ok No pain reported Tachycardic so consulting Dr Carranza Midline was accidently pulled out so need a new one placed Checked meds and labs Review of Systems General: Fatigue, Malaise Pulmonary: Dyspnea Focused Exam Lactate Level 01/11/21 08:30: Lactic Acid Level 2.61*H 01/11/21 10:50: Lactic Acid Level Laboratory Tests Test 01/11/21 08:30 01/11/21 10:50 Lactic Acid Level 2.61 MMOL/L (0.50-2.00) *H Objective Exam Vital Signs Vital Signs Date Time Temp Pulse Resp B/P (MAP) Pulse Ox O2 Delivery O2 Flow Rate FiO2 01/11/21 10:19 92 Nasal Cannula 5.00 01/11/21 08:00 37.2 94 20 110/55 (73) Capillary Refill : General Appearance: No Apparent Distress, WD/WN, Anxious, Chronically ill, Obese HEENT: PERRL/EOMI, Normal ENT Inspection, Pharynx Normal Neck: Full Range of Motion, Normal Inspection, Non Tender, Supple, Carotid Bruit Respiratory: Chest Non Tender, Lungs Clear, No Accessory Muscle Use, No Respiratory Distress, Decreased Breath Sounds Cardiovascular: Regular Rate, Rhythm, No Gallop, No JVD, No Murmur, Normal Peripheral Pulses Gastrointestinal: Normal Bowel Sounds, No Organomegaly, No Pulsatile Mass, Non Tender, Soft Back: Normal Inspection, No CVA Tenderness, No Vertebral Tenderness Extremity: Normal Capillary Refill, Normal Inspection, Normal Range of Motion, Non Tender, No Calf Tenderness, Pedal Edema Neurologic/Psychiatric: Alert, Oriented x3, No Motor/Sensory Deficits, disc recordist II- XII Norm as Tested, Depressed Affect, Motor Weakness Skin: Normal Color, Warm/Dry Lymphatic: No Adenopathy Results/Procedures Lab Laboratory Tests 01/11/21 08:30 Patient resulted labs reviewed. FIM Transfers Therapy Code Descriptions/Definitions Functional [place] Measure: 0=Not Assessed/NA 4=Minimal Assistance 1=Total Assistance 5=Supervision or Setup 2=Maximal Assistance 6=Modified [place] 3=Moderate Assistance 7=Complete IndependenceSCALE: Activities may be completed with or without assistive devices. 8-Romfxkrdyu-maaehem completes the activity by him/herself with no assistance from a helper. 5-Set-up or Clean-up Assistance-helper sets up or cleans up; patient completes activity. [place] assists only prior to or following the activity. 4-Supervision or Touching Assistance-helper provides verbal cues and/or touching/steadying and/or contact guard assistance as patient completes activity. Assistance may be provided throughout the activity or intermittently. 3-Partial/Moderate Assistance-helper does LESS THAN HALF the effort. [place] lifts, holds or supports trunk or limbs, but provides less than half the effort. 2-Substantial/Maximal Assistance-helper does MORE THAN HALF the effort. [place] lifts or holds trunk or limbs and provides more than half the effort. 0-Fopfjbifu-qzibqi does ALL the effort. Patient does none of the effort to complete the activity. Or, the assistance of 2 or more helpers is required for the patient to complete the activity. If activity was not attempted, code reason: 7-Patient Refused. 9-Not Applicable-not attempted and the patient did not perform the activity before the current illness, exacerbation or injury. 10-Not Attempted due to Environmental Limitations-(lack of equipment, weather restraints, etc.). 88-Not Attempted due to Medical Conditions or Safety Concerns. Roll Left to Right (QC): 2 Sit to Lying (QC): 2 Sit to Stand (QC): 2 Chair/Hkk-ca-[place] Xfer(QC): 2 Car Transfer (QC): 88 Gait Training Does the Patient Walk?: Yes Distance: 15' Walk 10 feet (QC): 4 Walk 50 ft with 2 Turns(QC): 88 Walk 150 ft (QC): 88 Walking 10ft/uneven surface-QC: 88 Gait Persons Needed: 1 Gait Assistive Device: FWW Wheelchair Training Does the Pt Use a Wheelchair?: Yes Wheel 50 ft with 2 turns (QC): 3 Wheel 150 ft (QC): 4 Type of Wheelchair: Manual Stair Training #of Steps: 1 1 Step (curb) (QC): 88 4 Steps (QC): 88 12 Steps (QC): 88 Stairs: Pattern: Step to Balance Picking up an Object (QC): 88 ADL-Treatment Eating (QC): 3 (Pt states fed self this am, though continued to "miss (his) mouth." Pt states undershot many times and required increased time/ concentration. Pt is educated on use of pillow to prop RUE during feeding. During med management, pt requires nursing to bring cup to mouth. 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 Obesity DM Neuropathy Anemia 7.4 on 01/06/21 but declined transfusion and iron infusions until changing mind s/p 2 units blood 01/07/21 O2 dependence Right great toe pain consulted Dr Rob 12/30/20 dx with gout and placed on Indocin Early sepsis 01/07/21 due to PNA placed on abx and IVF Plan: IRF protocol Monitor O2 O2 supplement 12/05/20: O2 maintained IRF protocol Cardiology consultation appreciated Midline replacement 12/06/20: Cardiology consult appreciated Decrease insulin Midline Monitor closely 12/07/20: Monitor closely O2 wean Increase acitivity Maintain Remeron and Melatonin 12/08/20: Monitor closely Check labs in am Monitor tachycardia Remeron and Melatonin 12/09/20: Labs normal Improved strength Weaning O2 Monitor insomnia Increase insulin 12/10/20: Monitor O2 Increase strength Severe myopathy of legs 12/11/20: Difficult to progress Continue therapy May need NHP 12/12/20: Pain control with Oxycodone Monitor bowels Monitor O2 12/13/20: Monitor pain Wean O2 CPAP mask seems to be working better 12/14/20: Improved status Stood up today with help O2 12/15/20: Wean O2 Monitor ambulation CPAP at night 12/16/20: Monitor progress Decubitus ulcer management Monitor BP 12/17/20: Family education/training today Monitor O2 CPAP with O2 12/18/20: Monitor O2 NH Wednesday Continue to work on stamina 12/19/20: Monitor O2 CPAP 12/20/20: Decubitus ulcer management Monitor O2 Replace grabber 12/21/20: Monitor O2 KRIS CPAP 12/22/20: DC Wednesday to [place] Home O2 evaluation 12/23/20: DC midline DC tomorrow to [place] Needs eye exam soon for blurry vision 12/24/20: DC on hold Monitor O2 12/25/20: Continue therapy Making significant progress 12/26/20: Monitor progress Standing now May be able to DC home? 12/27/20: Much improved status Improved standing No pain reported 12/28/20: Walked a bit but he gets discouraged so quickly Pain controlled in his foot Monitor cough 12/29/20: Started scheduled insulin AC Adjusted Levemir to 10 units HS since sugars are low in am and maintained Levemir 20 units at bfast Check labs in am 12/30/20: Right great toe pain eval by Dr Rob Check uric acid and xray Monitor sugar 12/31/20: Indocin for gout Monitor closely Pain control 01/01/21: Gout treatment Monitor closely Pain control IRF protocol 01/02/21: O2 Gout treatment Monitor dyspnea 01/03/21: Gout treatment Monitor O2 and dyspnea 01/04/21: O2 wean Monitor foot pain Indocin taper 01/05/21: Monitor low BP Change Gabapentin to BID from TID 01/06/21: Hgb 7.4 but patient declines transfusion and iron infusions Monitor O2 01/07/21: Blood transfusions [address] Zuñiga consultation Cardiology appreciated Hold OAC 01/08/21: HLIVF IV abx Appreciate Dr Zuñiga Monitor hgb Hold OAC 01/09/21: Hgb stable Restarted OAC Allopurinol started yesterday Wraps to legs Abx 01/10/21: Indocin for the gout IV abx Patient declined Dispo pending May become a hospice candidate (1) COVID-19 (2) RICHY on CPAP (3) Obesity (4) Diabetes (5) Hypertension (6) Edema (7) Neuropathy (8) Anemia (9) Advanced age (10) Gout DEANNA BOO DO Jan 10, 2021 10:44
--- NOTE | 2021-01-10 11:48 | Physical Therapy Daily Note ---
PT Daily Note-Current Subjective Patient in bed pre tx, agrees to PT, has 10/10 pain in both feet, he says the left one is worse. Appearance Patient in bed post tx with nurse call, phone, tray, heel protector boots on. Mental Status Patient Orientation: Person, Place, Situation Attachments: Oxygen, IV Transfers SCALE: Activities may be completed with or without assistive devices. 4-Epxdcevzwg-rpwqmzm completes the activity by him/herself with no assistance from a helper. 5-Set-up or Clean-up Assistance-helper sets up or cleans up; patient completes activity. [place] assists only prior to or following the activity. 4-Supervision or Touching Assistance-helper provides verbal cues and/or touching/steadying and/or contact guard assistance as patient completes activity. Assistance may be provided throughout the activity or intermittently. 3-Partial/Moderate Assistance-helper does LESS THAN HALF the effort. [place] lifts, holds or supports trunk or limbs, but provides less than half the effort. 2-Substantial/Maximal Assistance-helper does MORE THAN HALF the effort. [place] lifts or holds trunk or limbs and provides more than half the effort. 3-Kfffqfmma-brexzp does ALL the effort. Patient does none of the effort to complete the activity. Or, the assistance of 2 or more helpers is required for the patient to complete the activity. If activity was not attempted, code reason: 7-Patient Refused. 9-Not Applicable-not attempted and the patient did not perform the activity before the current illness, exacerbation or injury. 10-Not Attempted due to Environmental Limitations-(lack of equipment, weather restraints, etc.). 88-Not Attempted due to Medical Conditions or Safety Concerns. Weight Bearing Full Weight Bearing Full Weight Bearing Exercises Supine Ex: Ankle pumps (minimal movement due to pain), Quad Set, Glut sets, Heel Slides Supine Reps: 20 BLE stretching in all planes except for ankles due to severe pain with dorsiflexion and plantarflexion. Treatments BLE stretching and ROM Assessment Current Status: Poor Progress Patient cannot tolerate therapy today due to severe pain in both ankles, he is fatigued, has low hemoglobin, can barely stay awake, cannot tolerate much movement that even doesn't involve his ankles. Patient has been on a covid waiver but we have been getting some extra time with him each day. He doesn't seem like he will be able to tolerate that today. PT Short Term Goals Short Term Goals Time Frame: Dec 11, 2020 Roll Left & Right: 4 (met) Sit to lyin (met) Lying to sitting on side of be: 4 (met) Sit to stand: 3 Chair/tmc-vi-nxgir transfer: 3 Walk 10 feet: 3 Walk 50 feet with two turns: 3 PT Fci Goals Fci Goals PT Plastic Surgery Assistant Goals Time Frame: Jan 01, 2021 Roll Left & Right (QC): 6 Sit to Lying (QC): 6 Lying-Sitting on Side/Bed(QC): 6 Sit to Stand (QC): 6 Chair/Qtq-lk-Sjagh Xfer(QC): 6 Toilet Transfer (QC): 6 Car Transfer (QC): 6 Does the Patient Walk: No and Walking Goal IS indicated Walk 10 feet (QC): 6 Walk 50ft with 2 Turns (QC): 6 Walk 150 ft (QC): 6 Walking 10ft on Uneven Surface: 4 1 Step (curb) (QC): 4 4 Steps (QC): 4 12 Steps (QC): 4 Picking up an Object (QC): 5 Does the Pt use WC or Scooter?: No Wheel 50 feet with 2 turns (QC: 9 Wheel 150 feet: 9 PT Plan Problem List Problem List: Activity Tolerance, Functional Strength, Safety, Balance, Gait, Transfer, Bed Mobility, ROM Treatment/Plan Treatment Plan: Continue Plan of Care Treatment Plan: Bed Mobility, Education, Functional Activity Erick, Functional Strength, Group Therapy, Gait, Safety, Therapeutic Exercise, Transfers Treatment Duration: Jan 01, 2021 Frequency: At least 5 of 7 days/Wk (IRF) Estimated Hrs Per Day: Other (see notation) Patient and/or Family Agrees t: Yes Safety Risks/Education Patient Education: Correct Positioning, Safety Issues Teaching Recipient: Patient Teaching Methods: Demonstration, Discussion Response to Teaching: Reinforcement Needed Time/GCodes Time In: 1130 Time Out: 1145 Total Billed Treatment Time: 15 Total Billed Treatment 1 visit EX JENSEN SNIDER PT Jan 10, 2021 11:48
--- NOTE | 2021-01-10 16:31 | Podiatry Progress Note ---
Standard Progress Note Progress Notes/Assess & Plan Date Seen by a Provider: Jan 10, 2021 Time Seen by a Provider: 16:32 Progress/Assessment & Plan The patient is complaining of pain to the left ankle for the past couple days. The pain has improved since this morning but he is still unable to bear weight. There is no erythema or edema to the right hallux and no pain with palpation. There is edema noted to the rear foot and ankle bilaterally. Dx: Gout right hallux - improved Gout left ankle Edema Plan: Order for Colchicine given, 1.2mg day one, 0.6mg day 2, 3, 4. Continue with allopurinol daily. Final Diagnosis Gout HAIR COLON DPM Jan 10, 2021 16:31
--- NOTE | 2021-01-10 16:36 | Cardiology Progress Note ---
Cardiology SOAP Progress Note Subjective: Complains of not feeling well. Fatigue. Objective: I&O/Vital Signs 01/11/21 01/11/21 01/11/21 01/11/21 04:05 07:00 08:00 09:00 Temp 36.8 37.2 Pulse 89 76 94 Resp 20 20 B/P (MAP) 113/59 (77) 110/55 (73) Pulse Ox 93 92 92 O2 Delivery NIV CPAP Nasal Cannula Nasal Cannula O2 Flow Rate 5.00 5.00 5.00 01/11/21 01/11/21 10:19 12:57 Pulse 93 Pulse Ox 92 O2 Delivery Nasal Cannula O2 Flow Rate 5.00 01/10/21 23:59 Intake Total 980 ml Output Total 850 ml Balance 130 ml Constitutional: other (somnolent) Respiratory: chest is bilaterally symmetric, other (fair to good, bilateral air entry) Cardiovascular: regular rate-rhythm, S1 and S2, systolic murmur (soft YANET at card base) Gastrointestional: soft, audible bowel sounds Extremities: other (mild to mod, bilateral leg edema), significant edema (bilaterla) Neurologic/Psychiatric: other (somnolent, seems to be able to move all limbs) Skin: No rash on exposed areas, No ulcerations on exposed areas Results/Procedures: Labs Laboratory Tests 01/10/21 15:46: Glucometer 166H 01/10/21 20:03: Glucometer 156H 01/11/21 06:22: Glucometer 106 01/11/21 08:30: White Blood Count 6.6, Red Blood Count 2.93L, Hemoglobin 8.6L, Hematocrit 28L, Mean Corpuscular Volume 94, Mean Corpuscular Hemoglobin 29, Mean Corpuscular Hemoglobin Concent 31L, Red Cell Distribution Width 18.9H, Platelet Count 205, Mean Platelet Volume 8.7L, Immature Granulocyte % (Auto) 1, Neutrophils (%) (Auto) 69, Lymphocytes (%) (Auto) 14, Monocytes (%) (Auto) 15H, Eosinophils (%) (Auto) 0, Basophils (%) (Auto) 1, Neutrophils # (Auto) 4.6, Lymphocytes # (Auto) 0.9L, Monocytes # (Auto) 1.0, Eosinophils # (Auto) 0.0, Basophils # (Auto) 0.1, Immature Granulocyte # (Auto) 0.1, Sodium Level 135, Potassium Level 3.5L, Chlo ride Level 101, Carbon Dioxide Level 25, Anion Gap 9, Blood Urea Nitrogen 13, Creatinine 1.16, Estimat Glomerular Filtration Rate > 60, BUN/Creatinine Ratio 11, Glucose Level 155H, Lactic Acid Level 2.61*H, Calcium Level 8.5, Corrected Calcium 9.5, Magnesium Level 1.8, Total Bilirubin 0.7, Aspartate Amino Transf (AST/SGOT) 12, Alanine Aminotransferase (ALT/SGPT) 13, Alkaline Phosphatase 50, Total Protein 5.9L, Albumin 2.7L, Procalcitonin 0.44H 01/11/21 10:50: Lactic Acid Level 1.92 01/11/21 11:21: Glucometer 111H Microbiology 01/07/21 MRSA Screen - Final, Complete MRSA not isolated 01/07/21 Blood Culture - Preliminary, Resulted No growth A/P: Assessment/Dx: Probable L-sided pneumonia and sepsis with borderline hypotension Sinus tachycardia, likely due to sepsis/pneumonia - improved Severe anemia of undetermined etiology, treated with 2 U PRBC on 01/07/21 - H/H improved Paroxysmal atrial fibrillation, occult stool negative - OAC has been resumed Critical illness myopathy, COVID-19 RICHY, treated with CPAP, managed by Dr Dawkins Plan: * Complex management due to multiple comorbidities * Dr Dawkins managing pneumonia, sepsis, and anemia * Occult negative * OAC has been resumed * Management of anemia per medical services * Symptoms and bp still unstable * Monitor labs Thank you for your consultation. Please call me if you have any questions. Nanda Hollingsworth MD, FACP, FACC, FSCAI, FHRS, CCDS Interventional Cardiology Cardiac Electrophysiology Vascular Medicine and Endovascular Interventions Focused Exam Lactate Level 01/11/21 08:30: Lactic Acid Level 2.61*H 01/11/21 10:50: Lactic Acid Level 1.92 Lactic Acid Level Laboratory Tests Test 01/11/21 10:50 Lactic Acid Level 1.92 MMOL/L (0.50-2.00) Lucho HOLLINGSWORTH MD Jan 10, 2021 16:36
[2021-01-10] MEDS ORDERED: COLCHICINE 0.6 MG (COLCRYS) TABLET PO SCH (17:00)
[2021-01-10] MEDS ORDERED: COLCHICINE 0.6 MG (COLCRYS) TABLET PO NR (17:00)
[2021-01-10] MEDS: MIRTAZAPINE 15 MG (REMERON) TAB PO SCH (20:59)
[2021-01-10] MEDS: MELATONIN 3 MG TABLET PO SCH (20:59)
[2021-01-11 00:10] VITALS: BP 103/55
[2021-01-11 04:05] VITALS: BP 113/59
[2021-01-11] MEDS: inSUlin ASPART (NovoLOG) 1 UNIT/0.01 ML (CHARGE PER UNIT) SC SCH ×7 (06:22→21:36)
[2021-01-11] MEDS: PIPERACILLIN/TAZOBACTAM (BULK) 4.5 GM in NS (IVPB) 100 ML IV SCH ×3 (06:23→22:37)
[2021-01-11 08:00] VITALS: BP 110/55
[2021-01-11] MEDS: GABAPENTIN 100 MG (NEURONTIN) CAP PO SCH ×2 (08:15→20:33)
[2021-01-11] MEDS: PANTOPRAZOLE 40 MG (PROTONIX) TAB PO SCH ×2 (08:15→20:33)
[2021-01-11] MEDS: APIXABAN 5 MG (ELIQUIS) TABLET PO SCH ×2 (08:15→20:33)
[2021-01-11] MEDS: FINASTERIDE (PROSCAR) 5 MG TAB PO SCH (08:15)
[2021-01-11] MEDS: VITAMIN D3 25 MCG (1,000 UNITS) TABLET PO SCH (08:15)
[2021-01-11] MEDS: ASCORBIC ACID (VIT C) 500 MG TABLET PO SCH ×2 (08:15→18:01)
[2021-01-11] MEDS: TAMSULOSIN 0.4 MG (FLOMAX) CAP PO SCH (08:15)
[2021-01-11] MEDS: ALLOPURINOL 100 MG (ZYLOPRIM) TAB PO SCH (08:15)
[2021-01-11] MEDS: SALINE NASAL SPRAY (OCEAN) 45 ML BTL NS SCH ×3 (08:16→20:34)
[2021-01-11] MEDS: FLUTICASONE NASAL SPRAY (FLONASE) 16 GM BTL NS SCH (08:16)
[2021-01-11] MEDS: SALIVA STIMULANT MOUTH SPRAY (BIOTENE) 1.5 OZ MM SCH ×4 (08:16→20:34)
[2021-01-11] MEDS: DOCUSATE SODIUM 100 MG (COLACE) CAP PO SCH ×2 (08:20→20:35)
[2021-01-11] MEDS: polyethylene glycoL POWDER 17 GM (MIRALAX) PACK PO SCH ×2 (08:20→20:35)
[2021-01-11] MEDS: SENNA W/DOCUSATE (SENOKOT S) TABLET PO SCH ×2 (08:20→20:35)
[2021-01-11 08:44] LABS: BASOPHILS # (AUTO) 0.1 10^3/uL (0.0-0.1); BASOPHILS % (AUTO) 1 % (0-10); EOSINOPHILS % (AUTO) 0 % (0-10); HEMATOCRIT 28 % (40-54); HEMOGLOBIN 8.6 g/dL (13.3-17.7); LYMPHOCYTES # (AUTO) 0.9 10^3/uL (1.0-4.0); LYMPHOCYTES % (AUTO) 14 % (12-44); MEAN CORPUSCULAR HEMOGLOBIN 29 pg (25-34); MEAN CORPUSCULAR HGB CONC 31 g/dL (32-36); MEAN CORPUSCULAR VOLUME 94 fL (80-99); MEAN PLATELET VOLUME 8.7 fL (9.0-12.2); MONOCYTES % (AUTO) 15 % (0-12); NEUTROPHILS # (AUTO) 4.6 10^3/uL (1.8-7.8); NEUTROPHILS % (AUTO) 69 % (42-75); PLATELET COUNT 205 10^3/uL (130-400); WHITE BLOOD COUNT 6.6 10^3/uL (4.3-11.0)
[2021-01-11 08:52] LABS: ALBUMIN 2.7 GM/DL (3.2-4.5); CHLORIDE 101 MMOL/L (98-107); POTASSIUM 3.5 MMOL/L (3.6-5.0); SODIUM 135 MMOL/L (135-145)
[2021-01-11 08:53] LABS: CALCIUM 8.5 MG/DL (8.5-10.1)
[2021-01-11 08:54] LABS: GLUCOSE 155 MG/DL (70-105)
[2021-01-11 08:55] LABS: TOTAL PROTEIN 5.9 GM/DL (6.4-8.2)
[2021-01-11 08:56] LABS: CARBON DIOXIDE 25 MMOL/L (21-32)
[2021-01-11 08:57] LABS: BILIRUBIN,TOTAL 0.7 MG/DL (0.1-1.0)
[2021-01-11 08:58] LABS: ALKALINE PHOSPHATASE 50 U/L (40-136); CREATININE SERUM 1.16 MG/DL (0.60-1.30); GFR ESTIMATED > 60
[2021-01-11 08:59] LABS: BUN/CREATININE RATIO 11
[2021-01-11 09:01] LABS: ALANINE AMINOTRANSFERASE 13 U/L (0-55)
[2021-01-11] MEDS: ADVAIR HFA 115/21 MCG INHALER 8 GM IH SCH ×2 (10:04→18:24)
[2021-01-11] MEDS: UMECLIDINIUM BROMIDE (INCRUSE ELLIPTA) 7'S IH SCH (10:04)
[2021-01-11] MEDS: RT-ALBUTEROL/IPRATROPIUM 3 ML (DUONEB) VIAL IH SCH ×3 (10:04→18:18)
--- NOTE | 2021-01-11 10:08 | Physical Therapy Daily Note ---
PT Daily Note-Current Subjective Pt sitting up in recliner upon arrival. Pt voices not having a good day and extremely fatigued. Pain Numeric Pain Scale: 5-Moderate Pain Location: Left Location Body Site: Foot Mental Status Patient Orientation: Person, Place, Situation Transfers SCALE: Activities may be completed with or without assistive devices. 3-Goqtcmpsgy-reixeqj completes the activity by him/herself with no assistance from a helper. 5-Set-up or Clean-up Assistance-helper sets up or cleans up; patient completes activity. [place] assists only prior to or following the activity. 4-Supervision or Touching Assistance-helper provides verbal cues and/or touching/steadying and/or contact guard assistance as patient completes activity. Assistance may be provided throughout the activity or intermittently. 3-Partial/Moderate Assistance-helper does LESS THAN HALF the effort. [place] lifts, holds or supports trunk or limbs, but provides less than half the effort. 2-Substantial/Maximal Assistance-helper does MORE THAN HALF the effort. [place] lifts or holds trunk or limbs and provides more than half the effort. 4-Hvcqnxnma-oxokjj does ALL the effort. Patient does none of the effort to com plete the activity. Or, the assistance of 2 or more helpers is required for the patient to complete the activity. If activity was not attempted, code reason: 7-Patient Refused. 9-Not Applicable-not attempted and the patient did not perform the activity before the current illness, exacerbation or injury. 10-Not Attempted due to Environmental Limitations-(lack of equipment, weather restraints, etc.). 88-Not Attempted due to Medical Conditions or Safety Concerns. Weight Bearing Full Weight Bearing Full Weight Bearing Treatments Pt worked on repositioning in recliner. Pt refuses to attempt sit<>stands, pt refuses seated and long sitting exercises d/t pain in L foot w/ activity. Pt requires ModA w/ repositioning self in recliner. Pt remains in recliner w/ call light and bedside table w/in reach and all needs met. Assessment Current Status: Poor Progress Poor endurance, decreased motivation, decreased tolerance for activities PT Short Term Goals Short Term Goals Time Frame: Dec 11, 2020 Roll Left & Right: 4 (met) Sit to lyin (met) Lying to sitting on side of be: 4 (met) Sit to stand: 3 Chair/kzk-oc-sxbce transfer: 3 Walk 10 feet: 3 Walk 50 feet with two turns: 3 PT Psychiatric Technician Goals Halfway Goals PT Halfway Goals Time Frame: Jan 01, 2021 Roll Left & Right (QC): 6 Sit to Lying (QC): 6 Lying-Sitting on Side/Bed(QC): 6 Sit to Stand (QC): 6 Chair/[place]ax-[place]tt[place] Xfer(QC): 6 Toilet Transfer (QC): 6 Car Transfer (QC): 6 Does the Patient Walk: No and Walking Goal IS indicated Walk 10 feet (QC): 6 Walk 50ft with 2 Turns (QC): 6 Walk 150 ft (QC): 6 Walking 10ft on Uneven Surface: 4 1 Step (curb) (QC): 4 4 Steps (QC): 4 12 Steps (QC): 4 Picking up an Object (QC): 5 Does the Pt use WC or Scooter?: No Wheel 50 feet with 2 turns (QC: 9 Wheel 150 feet: 9 PT Plan Problem List Problem List: Activity Tolerance, Functional Strength, Safety, Balance, Gait, Transfer, Bed Mobility, ROM Treatment/Plan Treatment Plan: Continue Plan of Care Treatment Plan: Bed Mobility, Education, Functional Activity Erick, Functional Strength, Group Therapy, Gait, Safety, Therapeutic Exercise, Transfers Treatment Duration: Jan 01, 2021 Frequency: At least 5 of 7 days/Wk (IRF) Estimated Hrs Per Day: Other (see notation) Patient and/or Family Agrees t: Yes Safety Risks/Education Patient Education: Correct Positioning, Safety Issues Teaching Recipient: Patient Teaching Methods: Discussion Response to Teaching: Verbalize Understanding Time/GCodes Time In: 928 Time Out: 943 Total Billed Treatment Time: 15 Total Billed Treatment 1, FA (15m) SERGIO KINNEY [employer] CHIEF Jan 11, 2021 10:08
[2021-01-11] MEDS ORDERED: LACTATED RINGERS 1,000 ML IV SCH (10:15)
[2021-01-11] MEDS ORDERED: ANIDULAFUNGIN INJECTION 200 MG in NS (IVPB) 250 ML IV ONE (10:15)
--- NOTE | 2021-01-11 10:30 | Diagnostic Imaging Report ---
INDICATION: Question pneumonia. Follow-up. EXAMINATION: Chest 01/11/2021. COMPARISON: 01/09/2021 FINDINGS: There is cardiomegaly. The pulmonary vasculature appears slightly congested. There are coarsened markings throughout both lungs with scattered peripheral infiltrates stable. No effusions or pneumothorax. IMPRESSION: 1. Findings of pulmonary edema with scattered bilateral peripheral infiltrates likely. Dictated by: Dictated on workstation # [id number]
[2021-01-11 12:00] VITALS: BP 116/54
--- NOTE | 2021-01-11 12:09 | PM&R Progress Note ---
Subjective HPI/CC On Admission Date Seen by Provider: Jan 11, 2021 Time Seen by Provider: 12:15 Subjective/Events-last exam 01/11/21: HR improved on Cardizem OOB and doing well Eraxis maintained Potassium and Mag will be replaced Improved status 01/10/21: Patient getting more complicated IV abx maintained No pain reported except foot pain Not eating well Patient declined Checked meds and labs refusing therapy most of the time Indocin restarted by Dr Rob 01/09/21: Patient doing about the same Dr Zuñiga evaluated him and resp status is stable Hgb 8.2 his baseline for past few weeks. Zosyn maintained Vanc DC due to MRSA swab negative Allopurinol started yesterday Dr Rob Feet are edematous and venous stasis noted so recommended KRIS's and ZULEIKA wraps 01/08/21: Patient definitely declined since admitted but remains stable just more complicated 2 units of blood has increased hgb to 9.1 which has helped alertness Hemoccult was negative sent to lab today PPI on board OAC on hold Indocin done Dr Zuñiga saw patient and ordered Nebs IV abx maintained Complains of foot pain but not many more options for gout and neuropathy and chronic foot pain he was taking Oxycodone prior to admit before arrival 01/07/21: Patient more drowsy today. Started septic w/u and lactic acid was elevated at 2.1 so started gentle IVF and consulted Dr Zuñiga and started on abx empirically for bilateral ATX vs infiltrate Agreeable for transfusion now so ordered 2 units and will give iron infusion tomorrow also Complex case overall OHA is held Hemoccult stools ordered 01/06/21: Hgb 7.4 and discussed placement of midline for transfusion of 1 unit and/or iron infusions and after a great deal of thought he declines both Patient doing well otherwise Fatigue about the same NHP Occult stool ordered 01/05/21: Complains about sleeping all the time Changed Gabapentin to BID instead of TID Large BM daily Mildly low BP noted Tremor reported to RN but not discussed with me 01/04/21: Sugars improved 113 this am Foot pain improved Indocin taper maintained 01/03/21: Uric acid ordered by Dr Rob Toe is better Decubitus ulcer is improved No pain otherwise Severe dyspnea when active but he seems to not be bothered about it 01/02/21: Left foot pain occurred last night Right great toe improved since Indocin BM+ NHP at DC 01/01/21: Pt was slightly hypotensive today but cardiology is managing Indocin is helping the gout in his foot Bowels are moving 3.5 liters maintained DC planned for 01/08/21 to [place] 12/31/20: Dr. Rob diagnosed gout so Indocin was started Remains on 3.5 liters of O2 Scared to not use the sit to stand 12/30/20: Bowels moved yesterday Doing pretty well Right great toe pain so consulted Dr. Rob Uric acid will be added and X-ray of the right foot 12/29/20: Patient frustrated BM yesterday Sputum produced and sent down to lab? Sugar 196 No pain meds required today 12/28/20: Alevan on his buttock Coughed up some green sputum 3 times yesterday but lungs are clear BM large today Oxycodone for his left foot pain helped 2+ edema Sugar 167 He is very pessimistic about his overall progress which cannot be redirected 12/27/20: Transferring without the site to stand now Improved overall BM+ Alevan vs. butt paste on buttock He sits in chair all day long on computer 12/26/20: Insurance declined skilled for now Standing and actually progressing well 2L/min and doing well DC scheduled APAP TID 12/25/20: Awaiting assisted placement Actually working pretty well with therapy Denies any significant new pain Blurry vision still continues Didnt sleep real well last night 12/24/20: Eyes were better but the more he works on the computer the blurry issues return DC is on hold due to [place] processes 12/23/20: Pt doing pretty well Buttock decubitus ulcer needs further treatment Discharge planned for tomorrow Hemaglobin 9.3 Midline will be discontinued at his request 12/22/20: Home O2 evaluation tomorrow for DC Wednesday DM education will be provided DC planned for [place] 12/21/20: Doing well Slept well BM today Edema improved on KRIS's Decubitus ulcers worsened due to sitting in chair all day long IS use increased 12/20/20: Now has daily complaints about minor things since he was notified last week he would need a [place] Nurse broke his grabber so will obtain replacement for him Butt paste placed on buttocks Stage 2 No other issues 12/19/20: No major issues Bowels are moving group home placement on Wednesday12/18/20: Discharge Wednesday to the assisted Family training did not go well Son was there but did not engage Insists on going home but that would not be a possibility Placing Sherrill on buttock 12/17/20: Family training today at 10:00 Still has a stage 2 buttock decubitus ulcer Overall feels like he is doing much better Son at bedside when I rounded later today and he was evaluating his progress 12/16/20: Pt doing pretty well Bowels moved today Left midline is functioning Blood sugar 147 Stage 2 decubitus ulcer on the buttock Working really hard to stand 12/15/20: Overall doing well No issues BM+ No falls 12/14/20: Doing well BM+ Dyspnea still continues No pain 12/13/20: Patient more alert today and energized No pain reported Oxycodone helps the foot pain Participating with therapy 12/12/20: Pt doing a lot better Having a lot of pain, takes Oxycodone for his foot and leg pain Bowels are moving Sleeping better Pt very well could require a assisted since he lives alone and is just not progressing well 12/11/20: No major issues Pretty much has plateaued and not made much progress with ambulation Epistaxis of the left nostril Nasal sprays will be continued Re-check and check with insurance coverage but he very well may need to be in a assisted 12/10/20: Pt doing pretty well Slept on and off last night Remains on 4 liters of O2 Swelling in his feel is pretty minimal Did not use his BiPAP last night and that likely is the cause of not sleeping well 12/09/20: Pt slept pretty well Bowels are moving PLTs are 97, 000 Normal WBC down from 21 when he first arrived Denies any significant issues Trying to get strong enough to walk 12/08/20: Slept well last night Remeron and Melatonin has helped him a lot Sinus tachy last night BM 12/06/20 so laxatives given No other issues 12/07/20: Slept better Yonker provided for phlem HR 60 Appreciate Cardiology 4L/min O2 BM 12/06/20 12/06/20: HR 122 Cardiology consulted Sugar 54 so decreasing insulin BM++ No pain reported No sleeping well so added hypnotics of Melatonin and Remeron 12/05/20: Patient doing well Worn out from fatigue Sugars are ok No pain reported Tachycardic so consulting Dr Carranza Midline was accidently pulled out so need a new one placed Checked meds and labs Review of Systems General: Fatigue Pulmonary: Dyspnea Focused Exam Lactate Level 01/11/21 08:30: Lactic Acid Level 2.61*H 01/11/21 10:50: Lactic Acid Level 1.92 Lactic Acid Level Objective Exam Vital Signs Vital Signs Date Time Temp Pulse Resp B/P (MAP) Pulse Ox O2 Delivery O2 Flow Rate FiO2 01/12/21 09:00 92 Nasal Cannula 5.00 01/12/21 08:00 36.8 94 20 125/58 (80) Capillary Refill : General Appearance: No Apparent Distress, WD/WN, Anxious, Chronically ill, Obese HEENT: PERRL/EOMI, Normal ENT Inspection, Pharynx Normal Neck: Full Range of Motion, Normal Inspection, Non Tender, Supple, Carotid Bruit Respiratory: Chest Non Tender, Lungs Clear, No Accessory Muscle Use, No Respiratory Distress, Decreased Breath Sounds Cardiovascular: Regular Rate, Rhythm, No Gallop, No JVD, No Murmur, Normal Peripheral Pulses Gastrointestinal: Normal Bowel Sounds, No Organomegaly, No Pulsatile Mass, Non Tender, Soft Back: Normal Inspection, No CVA Tenderness, No Vertebral Tenderness Extremity: Normal Capillary Refill, Normal Inspection, Normal Range of Motion, Non Tender, No Calf Tenderness, Pedal Edema Neurologic/Psychiatric: Alert, Oriented x3, No Motor/Sensory Deficits, practice physician II- XII Norm as Tested, Depressed Affect, Motor Weakness Skin: Normal Color, Warm/Dry Lymphatic: No Adenopathy Results/Procedures Lab Patient resulted labs reviewed. FIM Transfers Therapy Code Descriptions/Definitions Functional Richardson Measure: 0=Not Assessed/NA 4=Minimal Assistance 1=Total Assistance 5=Supervision or Setup 2=Maximal Assistance 6=Modified Richardson 3=Moderate Assistance 7=Complete IndependenceSCALE: Activities may be completed with or without assistive devices. 3-Mhdkaxehte-atmezsp completes the activity by him/herself with no assistance from a helper. 5-Set-up or Clean-up Assistance-helper sets up or cleans up; patient completes activity. Rena Lara assists only prior to or following the activity. 4-Supervision or Touching Assistance-helper provides verbal cues and/or touching/steadying and/or contact guard assistance as patient completes activity. Assistance may be provided throughout the activity or intermittently. 3-Partial/Moderate Assistance-helper does LESS THAN HALF the effort. Rena Lara lifts, holds or supports trunk or limbs, but provides less than half the effort. 2-Substantial/Maximal Assistance-helper does MORE THAN HALF the effort. Rena Lara lifts or holds trunk or limbs and provides more than half the effort. 7-Oohkdmtuc-pexixi does ALL the effort. Patient does none of the effort to complete the activity. Or, the assistance of 2 or more helpers is required for the patient to complete the activity. If activity was not attempted, code reason: 7-Patient Refused. 9-Not Applicable-not attempted and the patient did not perform the activity before the current illness, exacerbation or injury. 10-Not Attempted due to Environmental Limitations-(lack of equipment, weather restraints, etc.). 88-Not Attempted due to Medical Conditions or Safety Concerns. Roll Left to Right (QC): 2 Sit to Lying (QC): 2 Sit to Stand (QC): 2 Chair/Ytm-uf-Idrfm Xfer(QC): 2 Car Transfer (QC): 88 Gait Training Does the Patient Walk?: Yes Distance: 15' Walk 10 feet (QC): 4 Walk 50 ft with 2 Turns(QC): 88 Walk 150 ft (QC): 88 Walking 10ft/uneven surface-QC: 88 Gait Persons Needed: 1 Gait Assistive Device: FWW Wheelchair Training Does the Pt Use a Wheelchair?: Yes Wheel 50 ft with 2 turns (QC): 3 Wheel 150 ft (QC): 4 Type of Wheelchair: Manual Stair Training #of Steps: 1 1 Step (curb) (QC): 88 4 Steps (QC): 88 12 Steps (QC): 88 Stairs: Pattern: Step to Balance Picking up an Object (QC): 88 ADL-Treatment Eating (QC): 3 (Pt states fed self this am, though continued to "miss (his) mouth." Pt states undershot many times and required increased time/ concentration. Pt is educated on use of pillow to prop RUE during feeding. During med management, pt requires nursing to bring cup to mouth. 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 Obesity DM Neuropathy Anemia 7.4 on 01/06/21 but declined transfusion and iron infusions until changing mind s/p 2 units blood 01/07/21 O2 dependence Right great toe pain consulted Dr Rob 12/30/20 dx with gout and placed on Indocin Early sepsis 01/07/21 due to PNA placed on abx and IVF Plan: IRF protocol Monitor O2 O2 supplement 12/05/20: O2 maintained IRF protocol Cardiology consultation appreciated Midline replacement 12/06/20: Cardiology consult appreciated Decrease insulin Midline Monitor closely 12/07/20: Monitor closely O2 wean Increase acitivity Maintain Remeron and Melatonin 12/08/20: Monitor closely Check labs in am Monitor tachycardia Remeron and Melatonin 12/09/20: Labs normal Improved strength Weaning O2 Monitor insomnia Increase insulin 12/10/20: Monitor O2 Increase strength Severe myopathy of legs 12/11/20: Difficult to progress Continue therapy May need NHP 12/12/20: Pain control with Oxycodone Monitor bowels Monitor O2 12/13/20: Monitor pain Wean O2 CPAP mask seems to be working better 12/14/20: Improved status Stood up today with help O2 12/15/20: Wean O2 Monitor ambulation CPAP at night 12/16/20: Monitor progress Decubitus ulcer management Monitor BP 12/17/20: Family education/training today Monitor O2 CPAP with O2 12/18/20: Monitor O2 NH Wednesday Continue to work on stamina 12/19/20: Monitor O2 CPAP 12/20/20: Decubitus ulcer management Monitor O2 Replace grabber 12/21/20: Monitor O2 KRIS CPAP 12/22/20: DC Wednesday to [place] Home O2 evaluation 12/23/20: DC midline DC tomorrow to [place] Needs eye exam soon for blurry vision 12/24/20: DC on hold Monitor O2 12/25/20: Continue therapy Making significant progress 12/26/20: Monitor progress Standing now May be able to DC home? 12/27/20: Much improved status Improved standing No pain reported 12/28/20: Walked a bit but he gets discouraged so quickly Pain controlled in his foot Monitor cough 12/29/20: Started scheduled insulin AC Adjusted Levemir to 10 units HS since sugars are low in am and maintained Levemir 20 units at bfast Check labs in am 12/30/20: Right great toe pain eval by Dr Rob Check uric acid and xray Monitor sugar 12/31/20: Indocin for gout Monitor closely Pain control 01/01/21: Gout treatment Monitor closely Pain control IRF protocol 01/02/21: O2 Gout treatment Monitor dyspnea 01/03/21: Gout treatment Monitor O2 and dyspnea 01/04/21: O2 wean Monitor foot pain Indocin taper 01/05/21: Monitor low BP Change Gabapentin to BID from TID 01/06/21: Hgb 7.4 but patient declines transfusion and iron infusions Monitor O2 01/07/21: Blood transfusions [address] Zuñiga consultation Cardiology appreciated Hold OAC 01/08/21: HLIVF IV abx Appreciate Dr Zuñiga Monitor hgb Hold OAC 01/09/21: Hgb stable Restarted OAC Allopurinol started yesterday Wraps to legs Abx 01/10/21: Indocin for the gout IV abx Patient declined Dispo pending May become a hospice candidate 01/11/21: Actually improved Diet improved Replace potassium Eraxis maintained (1) COVID-19 (2) RICHY on CPAP (3) Obesity (4) Diabetes (5) Hypertension (6) Edema (7) Neuropathy (8) Anemia (9) Advanced age (10) Gout DEANNA BOO DO Jan 11, 2021 12:09
[2021-01-11] MEDS ORDERED: POTASSIUM CL 10MEQ/50ML IVPB 50 ML IV SCH (12:15)
--- NOTE | 2021-01-11 14:02 | Cardiology Progress Note ---
Cardiology SOAP Progress Note Subjective: Feeling better than yesterday. Objective: I&O/Vital Signs 01/11/21 01/11/21 01/11/21 01/11/21 04:05 07:00 08:00 09:00 Temp 36.8 37.2 Pulse 89 76 94 Resp 20 20 B/P (MAP) 113/59 (77) 110/55 (73) Pulse Ox 93 92 92 O2 Delivery NIV CPAP Nasal Cannula Nasal Cannula O2 Flow Rate 5.00 5.00 5.00 01/11/21 01/11/21 10:19 12:57 Pulse 93 Pulse Ox 92 O2 Delivery Nasal Cannula O2 Flow Rate 5.00 01/10/21 23:59 Intake Total 980 ml Output Total 850 ml Balance 130 ml Constitutional: other (somnolent) Respiratory: chest is bilaterally symmetric, other (fair to good, bilateral air entry) Cardiovascular: regular rate-rhythm, S1 and S2, systolic murmur (soft YANET at card base) Gastrointestional: soft, audible bowel sounds Extremities: other (mild to mod, bilateral leg edema), significant edema (bilaterla) Neurologic/Psychiatric: other (somnolent, seems to be able to move all limbs) Skin: No rash on exposed areas, No ulcerations on exposed areas Results/Procedures: Labs Laboratory Tests 01/10/21 15:46: Glucometer 166H 01/10/21 20:03: Glucometer 156H 01/11/21 06:22: Glucometer 106 01/11/21 08:30: White Blood Count 6.6, Red Blood Count 2.93L, Hemoglobin 8.6L, Hematocrit 28L, Mean Corpuscular Volume 94, Mean Corpuscular Hemoglobin 29, Mean Corpuscular Hemoglobin Concent 31L, Red Cell Distribution Width 18.9H, Platelet Count 205, Mean Platelet Volume 8.7L, Immature Granulocyte % (Auto) 1, Neutrophils (%) (Auto) 69, Lymphocytes (%) (Auto) 14, Monocytes (%) (Auto) 15H, Eosinophils (%) (Auto) 0, Basophils (%) (Auto) 1, Neutrophils # (Auto) 4.6, Lymphocytes # (Auto) 0.9L, Monocytes # (Auto) 1.0, Eosinophils # (Auto) 0.0, Basophils # (Auto) 0.1, Immature Granulocyte # (Auto) 0.1, Sodium Level 135, Potassium Level 3.5L, Chloride Level 101, Carbon Dioxide Level 25, Anion Gap 9, Blood Urea Nitrogen 13, Creatinine 1.16, Estimat Glomerular Filtration Rate > 60, BUN/Creatinine Ratio 11, Glucose Level 155H, Lactic Acid Level 2.61*H, Calcium Level 8.5, Corrected Calcium 9.5, Magnesium Level 1.8, Total Bilirubin 0.7, Aspartate Amino Transf (AST/SGOT) 12, Alanine Aminotransferase (ALT/SGPT) 13, Alkaline Phosphatase 50, Total Protein 5.9L, Albumin 2.7L, Procalcitonin 0.44H 01/11/21 10:50: Lactic Acid Level 1.92 01/11/21 11:21: Glucometer 111H Microbiology 01/07/21 MRSA Screen - Final, Complete MRSA not isolated 01/07/21 Blood Culture - Preliminary, Resulted No growth A/P: Assessment/Dx: Probable L-sided pneumonia and sepsis with borderline hypotension Sinus tachycardia, likely due to sepsis/pneumonia - improved Severe anemia of undetermined etiology, treated with 2 U PRBC on 01/07/21 - H/H improved Paroxysmal atrial fibrillation, occult stool negative - OAC has been resumed Critical illness myopathy, COVID-19 RICHY, treated with CPAP, managed by Dr Dawkins Plan: * Complex management due to multiple comorbidities * Dr Dawkins managing pneumonia, sepsis, and anemia * Occult negative * OAC has been resumed * Management of anemia per medical services * Improved symptoms and blood pressure. * Monitor labs Thank you for your consultation. Please call me if you have any questions. Nanda Hollingsworth MD, FACP, FACC, FSCAI, FHRS, CCDS Interventional Cardiology Cardiac Electrophysiology Vascular Medicine and Endovascular Interventions Focused Exam Lactate Level 01/11/21 08:30: Lactic Acid Level 2.61*H 01/11/21 10:50: Lactic Acid Level 1.92 Lactic Acid Level Laboratory Tests Test 01/11/21 10:50 Lactic Acid Level 1.92 MMOL/L (0.50-2.00) Lucho HOLLINGSWORTH MD Jan 11, 2021 14:02
[2021-01-11 16:00] VITALS: BP 127/56
[2021-01-11] MEDS: COLCHICINE 0.6 MG (COLCRYS) TABLET PO SCH (18:01)
[2021-01-11] MEDS: POTASSIUM CL 10MEQ/50ML IVPB 50 ML IV SCH ×4 (19:45→22:38)
[2021-01-11 20:30] VITALS: BP 118/56
[2021-01-11] MEDS: MIRTAZAPINE 15 MG (REMERON) TAB PO SCH (20:33)
[2021-01-11] MEDS: MELATONIN 3 MG TABLET PO SCH (21:36)
[2021-01-12] VITALS (7 sets, daily range): BP systolic 114–131; BP diastolic 56–67
[2021-01-12] MEDS: RT-ALBUTEROL/IPRATROPIUM 3 ML (DUONEB) VIAL IH SCH ×4 (02:28→20:57)
[2021-01-12] MEDS: PIPERACILLIN/TAZOBACTAM (BULK) 4.5 GM in NS (IVPB) 100 ML IV SCH (05:55)
[2021-01-12] MEDS: inSUlin ASPART (NovoLOG) 1 UNIT/0.01 ML (CHARGE PER UNIT) SC SCH ×5 (06:34→20:08)
[2021-01-12] MEDS: ADVAIR HFA 115/21 MCG INHALER 8 GM IH SCH ×2 (07:32→20:55)
[2021-01-12] MEDS: UMECLIDINIUM BROMIDE (INCRUSE ELLIPTA) 7'S IH SCH (07:32)
[2021-01-12] MEDS: ALLOPURINOL 100 MG (ZYLOPRIM) TAB PO SCH (08:01)
[2021-01-12] MEDS: GABAPENTIN 100 MG (NEURONTIN) CAP PO SCH ×2 (08:01→20:12)
[2021-01-12] MEDS: ASCORBIC ACID (VIT C) 500 MG TABLET PO SCH ×2 (08:01→17:49)
[2021-01-12] MEDS: APIXABAN 5 MG (ELIQUIS) TABLET PO SCH ×2 (08:01→20:12)
[2021-01-12] MEDS: PANTOPRAZOLE 40 MG (PROTONIX) TAB PO SCH ×2 (08:01→20:11)
[2021-01-12] MEDS: TAMSULOSIN 0.4 MG (FLOMAX) CAP PO SCH (08:01)
[2021-01-12] MEDS: FINASTERIDE (PROSCAR) 5 MG TAB PO SCH (08:01)
[2021-01-12] MEDS: VITAMIN D3 25 MCG (1,000 UNITS) TABLET PO SCH (08:01)
[2021-01-12] MEDS: FLUTICASONE NASAL SPRAY (FLONASE) 16 GM BTL NS SCH (08:02)
[2021-01-12] MEDS: SALINE NASAL SPRAY (OCEAN) 45 ML BTL NS SCH ×3 (08:02→20:13)
[2021-01-12] MEDS: SENNA W/DOCUSATE (SENOKOT S) TABLET PO SCH ×2 (08:03→19:58)
[2021-01-12] MEDS: SALIVA STIMULANT MOUTH SPRAY (BIOTENE) 1.5 OZ MM SCH ×4 (08:03→20:13)
[2021-01-12] MEDS: polyethylene glycoL POWDER 17 GM (MIRALAX) PACK PO SCH ×2 (08:03→19:58)
[2021-01-12] MEDS: DOCUSATE SODIUM 100 MG (COLACE) CAP PO SCH ×2 (08:03→19:57)
[2021-01-12] MEDS: IRON SUCROSE 200 MG/10 ML (VENOFER) VIAL IV SCH (09:35)
[2021-01-12] MEDS: ANIDULAFUNGIN INJECTION 100 MG in NS (IVPB) 100 ML IV SCH (10:22)
--- NOTE | 2021-01-12 11:36 | PM&R Progress Note ---
Subjective HPI/CC On Admission Date Seen by Provider: Jan 12, 2021 Time Seen by Provider: 11:15 Subjective/Events-last exam 01/12/21: Patient much improved Eating very well today BM+ Venofer iron infusions tolerated Improved strength Was able to stand today Hallucinations at night so will stop Remeron and start Trazodone Took CPAP off last night and maintained on O2 Son visited yesterday and stayed for a long time O2 5L/min 01/11/21: HR improved on Cardizem OOB and doing well Eraxis maintained Potassium and Mag will be replaced Improved status 01/10/21: Patient getting more complicated IV abx maintained No pain reported except foot pain Not eating well Patient declined Checked meds and labs refusing therapy most of the time Indocin restarted by Dr Rob 01/09/21: Patient doing about the same Dr Zuñiga evaluated him and resp status is stable Hgb 8.2 his baseline for past few weeks. Zosyn maintained Vanc DC due to MRSA swab negative Allopurinol started yesterday Dr Rob Feet are edematous and venous stasis noted so recommended KRIS's and ZULEIKA wraps 01/08/21: Patient definitely declined since admitted but remains stable just more complicated 2 units of blood has increased hgb to 9.1 which has helped alertness Hemoccult was negative sent to lab today PPI on board OAC on hold Indocin done Dr Zuñiga saw patient and ordered Nebs IV abx maintained Complains of foot pain but not many more options for gout and neuropathy and chronic foot pain he was taking Oxycodone prior to admit before arrival 01/07/21: Patient more drowsy today. Started septic w/u and lactic acid was elevated at 2.1 so started gentle IVF and consulted Dr Zuñiga and started on abx empirically for bilateral ATX vs infiltrate Agreeable for transfusion now so ordered 2 units and will give iron infusion tomorrow also Complex case overall OHA is held Hemoccult stools ordered 01/06/21: Hgb 7.4 and discussed placement of midline for transfusion of 1 unit and/or iron infusions and after a great deal of thought he declines both Patient doing well otherwise Fatigue about the same NHP Occult stool ordered 01/05/21: Complains about sleeping all the time Changed Gabapentin to BID instead of TID Large BM daily Mildly low BP noted Tremor reported to RN but not discussed with me 01/04/21: Sugars improved 113 this am Foot pain improved Indocin taper maintained 01/03/21: Uric acid ordered by Dr Rob Toe is better Decubitus ulcer is improved No pain otherwise Severe dyspnea when active but he seems to not be bothered about it 01/02/21: Left foot pain occurred last night Right great toe improved since Indocin BM+ NHP at DC 01/01/21: Pt was slightly hypotensive today but cardiology is managing Indocin is helping the gout in his foot Bowels are moving 3.5 liters maintained DC planned for 01/08/21 to NH 12/31/20: Dr. Rob diagnosed gout so Indocin was started Remains on 3.5 liters of O2 Scared to not use the sit to stand 12/30/20: Bowels moved yesterday Doing pretty well Right great toe pain so consulted Dr. Rob Uric acid will be added and X-ray of the right foot 12/29/20: Patient frustrated BM yesterday Sputum produced and sent down to lab? Sugar 196 No pain meds required today 12/28/20: Alevan on his buttock Coughed up some green sputum 3 times yesterday but lungs are clear BM large today Oxycodone for his left foot pain helped 2+ edema Sugar 167 He is very pessimistic about his overall progress which cannot be redirected 12/27/20: Transferring without the site to stand now Improved overall BM+ Alevan vs. butt paste on buttock He sits in chair all day long on computer 12/26/20: Insurance declined skilled for now Standing and actually progressing well 2L/min and doing well DC scheduled APAP TID 12/25/20: Awaiting senior care placement Actually working pretty well with therapy Denies any significant new pain Blurry vision still continues Didnt sleep real well last night 12/24/20: Eyes were better but the more he works on the computer the blurry issues return DC is on hold due to NH processes 12/23/20: Pt doing pretty well Buttock decubitus ulcer needs further treatment Discharge planned for tomorrow Hemaglobin 9.3 Midline will be discontinued at his request 12/22/20: Home O2 evaluation tomorrow for DC Wednesday DM education will be provided DC planned for NH 12/21/20: Doing well Slept well BM today Edema improved on KRIS's Decubitus ulcers worsened due to sitting in chair all day long IS use increased 12/20/20: Now has daily complaints about minor things since he was notified last week he would need a [place] Nurse broke his grabber so will obtain replacement for him Butt paste placed on buttocks Stage 2 No other issues 12/19/20: No major issues Bowels are moving [facility] placement on Wednesday12/18/20: Discharge Wednesday to the senior care Family training did not go well Son was there but did not engage Insists on going home but that would not be a possibility Placing Alevin on buttock 12/17/20: Family training today at 10:00 Still has a stage 2 buttock decubitus ulcer Overall feels like he is doing much better Son at bedside when I rounded later today and he was evaluating his progress 12/16/20: Pt doing pretty well Bowels moved today Left midline is functioning Blood sugar 147 Stage 2 decubitus ulcer on the buttock Working really hard to stand 12/15/20: Overall doing well No issues BM+ No falls 12/14/20: Doing well BM+ Dyspnea still continues No pain 12/13/20: Patient more alert today and energized No pain reported Oxycodone helps the foot pain Participating with therapy 12/12/20: Pt doing a lot better Having a lot of pain, takes Oxycodone for his foot and leg pain Bowels are moving Sleeping better Pt very well could require a senior care since he lives alone and is just not progressing well 12/11/20: No major issues Pretty much has plateaued and not made much progress with ambulation Epistaxis of the left nostril Nasal sprays will be continued Re-check and check with insurance coverage but he very well may need to be in a senior care 12/10/20: Pt doing pretty well Slept on and off last night Remains on 4 liters of O2 Swelling in his feel is pretty minimal Did not use his BiPAP last night and that likely is the cause of not sleeping well 12/09/20: Pt slept pretty well Bowels are moving PLTs are 97, 000 Normal WBC down from 21 when he first arrived Denies any significant issues Trying to get strong enough to walk 12/08/20: Slept well last night Remeron and Melatonin has helped him a lot Sinus tachy last night BM 12/06/20 so laxatives given No other issues 12/07/20: Slept better Yonker provided for phlem HR 60 Appreciate Cardiology 4L/min O2 BM 12/06/20 12/06/20: HR 122 Cardiology consulted Sugar 54 so decreasing insulin BM++ No pain reported No sleeping well so added hypnotics of Melatonin and Remeron 12/05/20: Patient doing well Worn out from fatigue Sugars are ok No pain reported Tachycardic so consulting Dr Carranza Midline was accidently pulled out so need a new one placed Checked meds and labs Review of Systems General: Fatigue Pulmonary: Dyspnea Cardiovascular: Edema Neurological: Weakness, Incoordination Focused Exam Lactate Level 01/11/21 08:30: Lactic Acid Level 2.61*H 01/11/21 10:50: Lactic Acid Level 1.92 Objective Exam Vital Signs Vital Signs Date Time Temp Pulse Resp B/P (MAP) Pulse Ox O2 Delivery O2 Flow Rate FiO2 01/12/21 09:00 92 Nasal Cannula 5.00 01/12/21 08:00 36.8 94 20 125/58 (80) Capillary Refill : General Appearance: No Apparent Distress, WD/WN, Anxious, Chronically ill, Obese HEENT: PERRL/EOMI, Normal ENT Inspection, Pharynx Normal Neck: Full Range of Motion, Normal Inspection, Non Tender, Supple, Carotid Bruit Respiratory: Chest Non Tender, Lungs Clear, No Accessory Muscle Use, No Respiratory Distress, Decreased Breath Sounds Cardiovascular: Regular Rate, Rhythm, No Gallop, No JVD, No Murmur, Normal Peripheral Pulses Gastrointestinal: Normal Bowel Sounds, No Organomegaly, No Pulsatile Mass, Non Tender, Soft Back: Normal Inspection, No CVA Tenderness, No Vertebral Tenderness Extremity: Normal Capillary Refill, Normal Inspection, Normal Range of Motion, Non Tender, No Calf Tenderness, Pedal Edema Neurologic/Psychiatric: Alert, Oriented x3, No Motor/Sensory Deficits, 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 FIM Transfers Therapy Code Descriptions/Definitions Functional [employer] Measure: 0=Not Assessed/NA 4=Minimal Assistance 1=Total Assistance 5=Supervision or Setup 2=Maximal Assistance 6=Modified [employer] 3=Moderate Assistance 7=Complete IndependenceSCALE: Activities may be completed with or without assistive devices. 6-Ucalkoxibd-zixzdrp completes the activity by him/herself with no assistance from a helper. 5-Set-up or Clean-up Assistance-helper sets up or cleans up; patient completes activity. Rice assists only prior to or following the activity. 4-Supervision or Touching Assistance-helper provides verbal cues and/or touching/steadying and/or contact guard assistance as patient completes activity. Assistance may be provided throughout the activity or intermittently. 3-Partial/Moderate Assistance-helper does LESS THAN HALF the effort. Rice l ifts, holds or supports trunk or limbs, but provides less than half the effort. 2-Substantial/Maximal Assistance-helper does MORE THAN HALF the effort. Rice lifts or holds trunk or limbs and provides more than half the effort. 0-Wfmilygxa-hgqgyg does ALL the effort. Patient does none of the effort to complete the activity. Or, the assistance of 2 or more helpers is required for t he patient to complete the activity. If activity was not attempted, code reason: 7-Patient Refused. 9-Not Applicable-not attempted and the patient did not perform the activity before the current illness, exacerbation or injury. 10-Not Attempted due to Environmental Limitations-(lack of equipment, weather restraints, etc.). 88-Not Attempted due to Medical Conditions or Safety Concerns. Roll Left to Right (QC): 2 Sit to Lying (QC): 2 Sit to Stand (QC): 2 Chair/Xyn-ms-Whmjb Xfer(QC): 2 Car Transfer (QC): 88 Gait Training Does the Patient Walk?: Yes Distance: 15' Walk 10 feet (QC): 4 Walk 50 ft with 2 Turns(QC): 88 Walk 150 ft (QC): 88 Walking 10ft/uneven surface-QC: 88 Gait Persons Needed: 1 Gait Assistive Device: FWW Wheelchair Training Does the Pt Use a Wheelchair?: Yes Wheel 50 ft with 2 turns (QC): 3 Wheel 150 ft (QC): 4 Type of Wheelchair: Manual Stair Training #of Steps: 1 1 Step (curb) (QC): 88 4 Steps (QC): 88 12 Steps (QC): 88 Stairs: Pattern: Step to Balance Picking up an Object (QC): 88 ADL-Treatment Eating (QC): 3 (Pt states fed self this am, though continued to "miss (his) mouth." Pt states undershot many times and required increased time/ concentration. Pt is educated on use of pillow to prop RUE during feeding. During med management, pt requires nursing to bring cup to mouth. 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 Obesity DM Neuropathy Anemia 7.4 on 01/06/21 but declined transfusion and iron infusions until changing mind s/p 2 units blood 01/07/21 O2 dependence Right great toe pain consulted Dr Rob 12/30/20 dx with gout and placed on Indocin Early sepsis 01/07/21 due to PNA placed on abx and IVF Plan: IRF protocol Monitor O2 O2 supplement 12/05/20: O2 maintained IRF protocol Cardiology consultation appreciated Midline replacement 12/06/20: Cardiology consult appreciated Decrease insulin Midline Monitor closely 12/07/20: Monitor closely O2 wean Increase acitivity Maintain Remeron and Melatonin 12/08/20: Monitor closely Check labs in am Monitor tachycardia Remeron and Melatonin 12/09/20: Labs normal Improved strength Weaning O2 Monitor insomnia Increase insulin 12/10/20: Monitor O2 Increase strength Severe myopathy of legs 12/11/20: Difficult to progress Continue therapy May need NHP 12/12/20: Pain control with Oxycodone Monitor bowels Monitor O2 12/13/20: Monitor pain Wean O2 CPAP mask seems to be working better 12/14/20: Improved status Stood up today with help O2 12/15/20: Wean O2 Monitor ambulation CPAP at night 12/16/20: Monitor progress Decubitus ulcer management Monitor BP 12/17/20: Family education/training today Monitor O2 CPAP with O2 12/18/20: Monitor O2 NH Wednesday Continue to work on stamina 12/19/20: Monitor O2 CPAP 12/20/20: Decubitus ulcer management Monitor O2 Replace grabber 12/21/20: Monitor O2 KRIS CPAP 12/22/20: DC Wednesday to [place] Home O2 evaluation 12/23/20: DC midline DC tomorrow to [place] Needs eye exam soon for blurry vision 12/24/20: DC on hold Monitor O2 12/25/20: Continue therapy Making significant progress 12/26/20: Monitor progress Standing now May be able to DC home? 12/27/20: Much improved status Improved standing No pain reported 12/28/20: Walked a bit but he gets discouraged so quickly Pain controlled in his foot Monitor cough 12/29/20: Started scheduled insulin AC Adjusted Levemir to 10 units HS since sugars are low in am and maintained Levemir 20 units at bfast Check labs in am 12/30/20: Right great toe pain eval by Dr Rob Check uric acid and xray Monitor sugar 12/31/20: Indocin for gout Monitor closely Pain control 01/01/21: Gout treatment Monitor closely Pain control IRF protocol 01/02/21: O2 Gout treatment Monitor dyspnea 01/03/21: Gout treatment Monitor O2 and dyspnea 01/04/21: O2 wean Monitor foot pain Indocin taper 01/05/21: Monitor low BP Change Gabapentin to BID from TID 01/06/21: Hgb 7.4 but patient declines transfusion and iron infusions Monitor O2 01/07/21: Blood transfusions [address] Zuñiga consultation Cardiology appreciated Hold OAC 01/08/21: HLIVF IV abx Appreciate Dr Zuñiga Monitor hgb Hold OAC 01/09/21: Hgb stable Restarted OAC Allopurinol started yesterday Wraps to legs Abx 01/10/21: Indocin for the gout IV abx Patient declined Dispo pending May become a hospice candidate 01/11/21: Actually improved Diet improved Replace potassium Eraxis maintained 01/12/21: Improved overall today and was able to stand Eraxis Abx completed Indocin helps a lot (1) COVID-19 (2) RICHY on CPAP (3) Obesity (4) Diabetes (5) Hypertension (6) Edema (7) Neuropathy (8) Anemia (9) Advanced age (10) Gout DEANNA BOO DO Jan 12, 2021 11:36
--- NOTE | 2021-01-12 13:10 | Cardiology Progress Note ---
Cardiology SOAP Progress Note Subjective: No cardiac complaints Objective: I&O/Vital Signs 01/12/21 01/12/21 01/12/21 01/12/21 02:29 04:00 07:00 07:34 Temp 36.8 Pulse 81 103 Resp 20 B/P (MAP) 114/56 (75) Pulse Ox 96 91 95 O2 Delivery Nasal Cannula High Flow N/C Nasal Cannula O2 Flow Rate 5.00 5.00 5.00 01/12/21 01/12/21 01/12/21 01/12/21 07:35 07:36 08:00 09:00 Temp 36.8 Pulse 94 Resp 20 B/P (MAP) 125/58 (80) Pulse Ox 95 95 92 92 O2 Delivery Nasal Cannula Nasal Cannula High Flow N/C Nasal Cannula O2 Flow Rate 5.00 5.00 5.00 5.00 01/12/21 12:29 Pulse 102 01/12/21 00:00 Intake Total 1340 ml Output Total 350 ml Balance 990 ml Constitutional: other (somnolent) Respiratory: chest is bilaterally symmetric, other (fair to good, bilateral air entry) Cardiovascular: regular rate-rhythm, S1 and S2, systolic murmur (soft YANET at card base) Gastrointestional: soft, audible bowel sounds Extremities: other (mild to mod, bilateral leg edema), significant edema (bilaterla) Neurologic/Psychiatric: other (somnolent, seems to be able to move all limbs) Skin: No rash on exposed areas, No ulcerations on exposed areas Results/Procedures: Labs Laboratory Tests 01/11/21 16:31: Glucometer 157H 01/11/21 21:30: Glucometer 147H 01/12/21 06:32: Glucometer 77 01/12/21 11:38: Glucometer 126H Microbiology 01/07/21 MRSA Screen - Final, Complete MRSA not isolated 01/07/21 Blood Culture - Preliminary, Resulted No growth A/P: Assessment/Dx: Probable L-sided pneumonia and sepsis with borderline hypotension Sinus tachycardia, likely due to sepsis/pneumonia - improved Severe anemia of undetermined etiology, treated with 2 U PRBC on 01/07/21 - H/H improved Paroxysmal atrial fibrillation, occult stool negative - OAC has been resumed Critical illness myopathy, COVID-19 RICHY, treated with CPAP, managed by Dr Dawkins Plan: * Complex management due to multiple comorbidities * Dr Dawkins managing pneumonia, sepsis, and anemia * Occult negative * OAC has been resumed * Management of anemia per medical services * Improved symptoms and blood pressure. * Monitor labs Thank you for your consultation. Please call me if you have any questions. Nanda Hollingsworth MD, FACP, FACC, FSCAI, FHRS, CCDS Interventional Cardiology Cardiac Electrophysiology Vascular Medicine and Endovascular Interventions Focused Exam Lactate Level 01/11/21 08:30: Lactic Acid Level 2.61*H 01/11/21 10:50: Lactic Acid Level 1.92 Lucho HOLLINGSWORTH MD Jan 12, 2021 13:10
[2021-01-12] MEDS: COLCHICINE 0.6 MG (COLCRYS) TABLET PO SCH (17:49)
[2021-01-12] MEDS: MELATONIN 3 MG TABLET PO SCH (20:11)
[2021-01-12] MEDS: traZODone 50 MG (DESYREL) TAB PO SCH (20:12)
[2021-01-13] MEDS: RT-ALBUTEROL/IPRATROPIUM 3 ML (DUONEB) VIAL IH SCH ×4 (02:26→21:03)
[2021-01-13 04:48] VITALS: BP 120/63
[2021-01-13 05:43] LABS: BASOPHILS # (AUTO) 0.1 10^3/uL (0.0-0.1); BASOPHILS % (AUTO) 1 % (0-10); EOSINOPHILS # (AUTO) 0.1 10^3/uL (0.0-0.3); EOSINOPHILS % (AUTO) 2 % (0-10); HEMATOCRIT 29 % (40-54); HEMOGLOBIN 8.8 g/dL (13.3-17.7); LYMPHOCYTES # (AUTO) 1.1 10^3/uL (1.0-4.0); LYMPHOCYTES % (AUTO) 21 % (12-44); MEAN CORPUSCULAR HEMOGLOBIN 29 pg (25-34); MEAN CORPUSCULAR HGB CONC 30 g/dL (32-36); MEAN CORPUSCULAR VOLUME 95 fL (80-99); MEAN PLATELET VOLUME 8.8 fL (9.0-12.2); MONOCYTES # (AUTO) 0.6 10^3/uL (0.0-1.0); MONOCYTES % (AUTO) 12 % (0-12); NEUTROPHILS # (AUTO) 3.2 10^3/uL (1.8-7.8); NEUTROPHILS % (AUTO) 62 % (42-75); PLATELET COUNT 274 10^3/uL (130-400); WHITE BLOOD COUNT 5.2 10^3/uL (4.3-11.0)
[2021-01-13 05:58] LABS: ALBUMIN 2.8 GM/DL (3.2-4.5); CHLORIDE 105 MMOL/L (98-107); POTASSIUM 3.6 MMOL/L (3.6-5.0); SODIUM 137 MMOL/L (135-145)
[2021-01-13 05:59] LABS: CALCIUM 8.9 MG/DL (8.5-10.1)
[2021-01-13 06:00] LABS: GLUCOSE 100 MG/DL (70-105); TOTAL PROTEIN 6.2 GM/DL (6.4-8.2)
[2021-01-13 06:02] LABS: BILIRUBIN,TOTAL 0.5 MG/DL (0.1-1.0); CARBON DIOXIDE 23 MMOL/L (21-32)
[2021-01-13 06:04] LABS: ALKALINE PHOSPHATASE 58 U/L (40-136); CREATININE SERUM 1.09 MG/DL (0.60-1.30); GFR ESTIMATED > 60
[2021-01-13 06:05] LABS: BUN/CREATININE RATIO 6
[2021-01-13] MEDS: inSUlin ASPART (NovoLOG) 1 UNIT/0.01 ML (CHARGE PER UNIT) SC SCH ×4 (06:06→21:03)
[2021-01-13 06:07] LABS: ALANINE AMINOTRANSFERASE 13 U/L (0-55)
--- NOTE | 2021-01-13 07:37 | Pulmonary Progress Note ---
Subjective Time Seen by a Provider: 07:29 Subjective/Events-last exam PT is requiring more oxygen. Sepsis Event Evaluation Height, Weight, BMI Height: '" Weight: lbs. oz. kg; 33.68 BMI Method: Focused Exam Lactate Level 01/11/21 08:30: Lactic Acid Level 2.61*H 01/11/21 10:50: Lactic Acid Level 1.92 Exam Exam Vital Signs Date Time Temp Pulse Resp B/P (MAP) Pulse Ox O2 Delivery O2 Flow Rate FiO2 01/13/21 04:48 36.2 70 20 120/63 (82) 92 NIV CPAP 10.00 10.00 01/13/21 02:31 93 NIV CPAP 10.00 01/12/21 23:52 36.4 80 21 115/67 (83) 91 NIV CPAP 10.00 01/12/21 21:07 90 NIV CPAP 10.00 01/12/21 21:00 85 NIV CPAP 5.00 01/12/21 20:25 94 Nasal Cannula 6.00 01/12/21 20:13 36.2 89 18 131/61 (84) 94 High Flow N/C 6.00 01/12/21 16:00 37.0 90 21 118/64 (82) 91 High Flow N/C 5.00 01/12/21 14:56 Nasal Cannula 5.00 01/12/21 12:29 102 01/12/21 12:00 37.0 88 20 116/59 (78) 92 High Flow N/C 5.00 01/12/21 09:00 92 Nasal Cannula 5.00 01/12/21 08:00 36.8 94 20 125/58 (80) 92 High Flow N/C 5.00 01/12/21 07:36 95 Nasal Cannula 5.00 01/12/21 07:35 95 Nasal Cannula 5.00 01/12/21 07:34 95 Nasal Cannula 5.00 I & O 01/13/21 07:00 Intake Total 1200 ml Output Total 2450 ml Balance -1250 ml Height & Weight Height: '" Weight: lbs. oz. kg; 33.68 BMI Method: General Appearance: WD/WN, Anxious, Chronically ill, Mild Distress, Obese HEENT: PERRL/EOMI, Normal ENT Inspection, Pharynx Normal Neck: Full Range of Motion, Normal Inspection, Non Tender, Supple, Carotid Bruit Respiratory: Chest Non Tender, Lungs Clear, No Accessory Muscle Use, No Respiratory Distress, Decreased Breath Sounds Cardiovascular: Regular Rate, Rhythm, No Gallop, No JVD, No Murmur, Normal Linda pheral Pulses Extremity: Normal Capillary Refill, Normal Inspection, Normal Range of Motion, Non Tender, No Calf Tenderness, Pedal Edema Neurologic/Psychiatric: Alert, Oriented x3, No Motor/Sensory Deficits, ivf embryologist II- XII Norm as Tested, Depressed Affect, Motor Weakness Skin: Normal Color, Warm/Dry Lymphatic: No Adenopathy Results Lab Laboratory Tests 01/11/21 08:30 01/13/21 05:26 Assessment/Plan Assessment/Plan PNA - worsening hypoxemia -s/p Zosyn -Repeat PCT and DDIMER -Give 40mg of lasix and repeat BNP -Repeat CXR - hinton cultures-- Negative thus far -CXR and labs reviewed - urine strep and legionella Ag -Monitor s/p COVID 19 with current Myopathy/debility -PT/OT RICHY -CPAP therapy Obesity Anemia -Monitor ONESIMO BAUMANN DO Jan 13, 2021 07:37
[2021-01-13 07:43] VITALS: BP 126/62
[2021-01-13] MEDS ORDERED: FUROSEMIDE 40 MG/4 ML INJ (LASIX) IVP ONE (07:45)
[2021-01-13] MEDS ORDERED: KCL 20 MEQ TAB (K-DUR) PO ONE (07:45)
[2021-01-13] MEDS: PANTOPRAZOLE 40 MG (PROTONIX) TAB PO SCH ×2 (07:46→20:46)
[2021-01-13] MEDS: ANIDULAFUNGIN INJECTION 100 MG in NS (IVPB) 100 ML IV SCH (07:46)
[2021-01-13] MEDS: VITAMIN D3 25 MCG (1,000 UNITS) TABLET PO SCH (07:46)
[2021-01-13] MEDS: TAMSULOSIN 0.4 MG (FLOMAX) CAP PO SCH (07:46)
[2021-01-13] MEDS: ASCORBIC ACID (VIT C) 500 MG TABLET PO SCH ×2 (07:47→18:01)
[2021-01-13] MEDS: SALIVA STIMULANT MOUTH SPRAY (BIOTENE) 1.5 OZ MM SCH ×4 (07:47→20:47)
[2021-01-13] MEDS: FINASTERIDE (PROSCAR) 5 MG TAB PO SCH (07:47)
[2021-01-13] MEDS: APIXABAN 5 MG (ELIQUIS) TABLET PO SCH ×2 (07:47→20:46)
[2021-01-13] MEDS: GABAPENTIN 100 MG (NEURONTIN) CAP PO SCH ×2 (07:47→20:45)
[2021-01-13] MEDS: ALLOPURINOL 100 MG (ZYLOPRIM) TAB PO SCH (07:47)
[2021-01-13] MEDS: SALINE NASAL SPRAY (OCEAN) 45 ML BTL NS SCH ×3 (07:48→20:47)
[2021-01-13] MEDS: FLUTICASONE NASAL SPRAY (FLONASE) 16 GM BTL NS SCH (07:48)
--- NOTE | 2021-01-13 08:31 | Cardiology Progress Note ---
Subjective Time Seen by Provider: 08:30 Subjective/Events-last exam Patient is sitting up in bed, complaining of dyspnea. Denies any chest pain. Focused Exam Lactate Level 01/11/21 08:30: Lactic Acid Level 2.61*H 01/11/21 10:50: Lactic Acid Level 1.92 Objective-Cardiology Exam Last Set of Vital Signs Vital Signs 01/13/21 01/13/21 07:43 09:33 Temp 36.8 Pulse 98 Resp 18 B/P (MAP) 126/62 (83) Pulse Ox 98 O2 Delivery Nasal Cannula O2 Flow Rate 4.00 Capillary Refill : I&O Intake and Output 01/13/21 00:00 Intake Total 1050 ml Output Total 2300 ml Balance -1250 ml Intake Oral 930 ml IV Total 120 ml Output Urine Total 2300 ml # Bowel Movements 1 General: Alert, Oriented X3, Cooperative HEENT: Atraumatic, PERRLA Neck: Supple, No JVD, No Thyromegaly Lungs: Clear to Auscultation, Normal Air Movement Heart: Normal S1, Normal S2, No Murmurs, Other (irregularly irregular) Abdomen: Normal Bowel Sounds, Soft, No Tenderness, No Hepatosplenomegaly, No Masses Extremities: No Clubbing, No Cyanosis Skin: No Rashes, No Significant Lesion Neuro: Normal Speech, Cranial Nerves 3-12 NL Psych/Mental Status: Mental Status NL, Mood NL Results Lab Laboratory Tests 01/13/21 05:26 A/P-Cardiology Admission Diagnosis Afib HTN HLP DM Assessment/Plan Atrial fibrillation with controlled ventricular rate, maintained on Eliquis, continue to monitor. Pneumonia, worsening, Dr. Zuñiga managing. Hypertension, better control at this time. 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 Dawkins Critical illness myopathy, COVID-19, continue PT/OT RICHY, treated with CPAP, managed by Dr Dawkins Patient was seen and evaluated with Rhona, examination performed, management plan was discussed, agree with the current scribed note, I made few changes to the note using Italic font Patient was seen at bedside, sitting comfortably, no new complaint Still having shortness of breath, using less oxygen at this time Continue to monitor heart rate and blood pressure RHONA MARTINEZ Jan 13, 2021 8:31 am JOSE MARIA QUEZADA MD Jan 13, 2021 10:52 am
--- NOTE | 2021-01-13 08:45 | Diagnostic Imaging Report ---
INDICATION: Shortness of breath. TIME OF EXAM: 8:32 AM. COMPARISON: Correlation is made with the prior chest from 01/11/2021. FINDINGS: The heart is enlarged but stable. There is continued infiltrate in the right upper lobe as well as left midlung field peripherally, similar to the prior exam. There is no effusion. There is no pneumothorax. IMPRESSION: Stable bilateral infiltrates when compared with the exam from 2 days earlier. Dictated by: Dictated on workstation # [id number]
--- NOTE | 2021-01-13 09:03 | PM&R Progress Note ---
Subjective HPI/CC On Admission Date Seen by Provider: Jan 13, 2021 Time Seen by Provider: 09:00 Subjective/Events-last exam 01/13/21: Pt slept well Appetite ale Had a fall without injury yesterday when he slid out of his wheelchair 10 liters of oxygen last night but Dr. Zuñiga saw him and turned it down to 6 liters D-dimer is elevated but he is already on [facility] [place] swingbed where his PCP Dr. Rinaldi will likely be required. He is too sick to go to fdc, doesnt meet criteria for residential care hospital and not acute enough to go upstairs and too sick to go home. 01/12/21: Patient much improved Eating very well today BM+ Venofer iron infusions tolerated Improved strength Was able to stand today Hallucinations at night so will stop Remeron and start Trazodone Took CPAP off last night and maintained on O2 Son visited yesterday and stayed for a long time O2 5L/min 01/11/21: HR improved on Cardizem OOB and doing well Eraxis maintained Potassium and Mag will be replaced Improved status 01/10/21: Patient getting more complicated IV abx maintained No pain reported except foot pain Not eating well Patient declined Checked meds and labs refusing therapy most of the time Indocin restarted by Dr Rob 01/09/21: Patient doing about the same Dr Zuñiga evaluated him and resp status is stable Hgb 8.2 his baseline for past few weeks. Zosyn maintained Vanc DC due to MRSA swab negative Allopurinol started yesterday Dr Rob Feet are edematous and venous stasis noted so recommended KRIS's and ZULEIKA wraps 01/08/21: Patient definitely declined since admitted but remains stable just more compli cated 2 units of blood has increased hgb to 9.1 which has helped alertness Hemoccult was negative sent to lab today PPI on board OAC on hold Indocin done Dr Zuñiga saw patient and ordered Nebs IV abx maintained Complains of foot pain but not many more options for gout and neuropathy and chronic foot pain he was taking Oxycodone prior to admit before arrival 01/07/21: Patient more drowsy today. Started septic w/u and lactic acid was elevated at 2.1 so started gentle IVF and consulted Dr Zuñiga and started on abx empirically for bilateral ATX vs infiltrate Agreeable for transfusion now so ordered 2 units and will give iron infusion tomorrow also Complex case overall OHA is held Hemoccult stools ordered 01/06/21: Hgb 7.4 and discussed placement of midline for transfusion of 1 unit and/or iron infusions and after a great deal of thought he declines both Patient doing well otherwise Fatigue about the same NHP Occult stool ordered 01/05/21: Complains about sleeping all the time Changed Gabapentin to BID instead of TID Large BM daily Mildly low BP noted Tremor reported to RN but not discussed with me 01/04/21: Sugars improved 113 this am Foot pain improved Indocin taper maintained 01/03/21: Uric acid ordered by Dr Rob Toe is better Decubitus ulcer is improved No pain otherwise Severe dyspnea when active but he seems to not be bothered about it 01/02/21: Left foot pain occurred last night Right great toe improved since Indocin BM+ NHP at DC 01/01/21: Pt was slightly hypotensive today but cardiology is managing Indocin is helping the gout in his foot Bowels are moving 3.5 liters maintained DC planned for 01/08/21 to NH 12/31/20: Dr. Rob diagnosed gout so Indocin was started Remains on 3.5 liters of O2 Scared to not use the sit to stand 12/30/20: Bowels moved yesterday Doing pretty well Right great toe pain so consulted Dr. Rob Uric acid will be added and X-ray of the right foot 12/29/20: Patient frustrated BM yesterday Sputum produced and sent down to lab? Sugar 196 No pain meds required today 12/28/20: Alevan on his buttock Coughed up some green sputum 3 times yesterday but lungs are clear BM large today Oxycodone for his left foot pain helped 2+ edema Sugar 167 He is very pessimistic about his overall progress which cannot be redirected 12/27/20: Transferring without the site to stand now Improved overall BM+ Alevan vs. butt paste on buttock He sits in chair all day long on computer 12/26/20: Insurance declined skilled for now Standing and actually progressing well 2L/min and doing well DC scheduled APAP TID 12/25/20: Awaiting fdc placement Actually working pretty well with therapy Denies any significant new pain Blurry vision still continues Didnt sleep real well last night 12/24/20: Eyes were better but the more he works on the computer the blurry issues return DC is on hold due to NH processes 12/23/20: Pt doing pretty well Buttock decubitus ulcer needs further treatment Discharge planned for tomorrow Hemaglobin 9.3 Midline will be discontinued at his request 12/22/20: Home O2 evaluation tomorrow for DC Wednesday DM education will be provided DC planned for NH 12/21/20: Doing well Slept well BM today Edema improved on KRIS's Decubitus ulcers worsened due to sitting in chair all day long IS use increased 12/20/20: Now has daily complaints about minor things since he was notified last week he would need a [place] Nurse broke his grabber so will obtain replacement for him Butt paste placed on buttocks Stage 2 No other issues 12/19/20: No major issues Bowels are moving [facility] placement on Wednesday12/18/20: Discharge Wednesday to the fdc Family training did not go well Son was there but did not engage Insists on going home but that would not be a possibility Placing Alevin on buttock 12/17/20: Family training today at 10:00 Still has a stage 2 buttock decubitus ulcer Overall feels like he is doing much better Son at bedside when I rounded later today and he was evaluating his progress 12/16/20: Pt doing pretty well Bowels moved today Left midline is functioning Blood sugar 147 Stage 2 decubitus ulcer on the buttock Working really hard to stand 12/15/20: Overall doing well No issues BM+ No falls 12/14/20: Doing well BM+ Dyspnea still continues No pain 12/13/20: Patient more alert today and energized No pain reported Oxycodone helps the foot pain Participating with therapy 12/12/20: Pt doing a lot better Having a lot of pain, takes Oxycodone for his foot and leg pain Bowels are moving Sleeping better Pt very well could require a fdc since he lives alone and is just not progressing well 12/11/20: No major issues Pretty much has plateaued and not made much progress with ambulation Epistaxis of the left nostril Nasal sprays will be continued Re-check and check with insurance coverage but he very well may need to be in a fdc 12/10/20: Pt doing pretty well Slept on and off last night Remains on 4 liters of O2 Swelling in his feel is pretty minimal Did not use his BiPAP last night and that likely is the cause of not sleeping well 12/09/20: Pt slept pretty well Bowels are moving PLTs are 97, 000 Normal WBC down from 21 when he first arrived Denies any significant issues Trying to get strong enough to walk 12/08/20: Slept well last night Remeron and Melatonin has helped him a lot Sinus tachy last night BM 12/06/20 so laxatives given No other issues 12/07/20: Slept better Yonker provided for phlem HR 60 Appreciate Cardiology 4L/min O2 BM 12/06/20 12/06/20: HR 122 Cardiology consulted Sugar 54 so decreasing insulin BM++ No pain reported No sleeping well so added hypnotics of Melatonin and Remeron 12/05/20: Patient doing well Worn out from fatigue Sugars are ok No pain reported Tachycardic so consulting Dr Carranza Midline was accidently pulled out so need a new one placed Checked meds and labs Review of Systems General: Fatigue Pulmonary: Dyspnea Focused Exam Lactate Level 01/11/21 08:30: Lactic Acid Level 2.61*H 01/11/21 10:50: Lactic Acid Level 1.92 Objective Exam Vital Signs Vital Signs Date Time Temp Pulse Resp B/P (MAP) Pulse Ox O2 Delivery O2 Flow Rate FiO2 01/13/21 21:04 36.6 101 20 116/72 (87) 92 High Flow N/C 4.00 Capillary Refill : General Appearance: No Apparent Distress, WD/WN, Anxious, Chronically ill, Obese HEENT: PERRL/EOMI, Normal ENT Inspection, Pharynx Normal Neck: Full Range of Motion, Normal Inspection, Non Tender, Supple, Carotid Bruit Respiratory: Chest Non Tender, Lungs Clear, No Accessory Muscle Use, No Respiratory Distress, Decreased Breath Sounds Cardiovascular: Regular Rate, Rhythm, No Gallop, No JVD, No Murmur, Normal Peripheral Pulses Gastrointestinal: Normal Bowel Sounds, No Organomegaly, No Pulsatile Mass, Non Tender, Soft Back: Normal Inspection, No CVA Tenderness, No Vertebral Tenderness Extremity: Normal Capillary Refill, Normal Inspection, Normal Range of Motion, Non Tender, No Calf Tenderness, Pedal Edema Neurologic/Psychiatric: Alert, Oriented x3, No Motor/Sensory Deficits, director sanitation bureau II- XII Norm as Tested, Depressed Affect, Motor Weakness Skin: Normal Color, Warm/Dry Lymphatic: No Adenopathy Results/Procedures Lab Laboratory Tests 01/13/21 05:26 Patient resulted labs reviewed. FIM Transfers Therapy Code Descriptions/Definitions Functional [place] Measure: 0=Not Assessed/NA 4=Minimal Assistance 1=Total Assistance 5=Supervision or Setup 2=Maximal Assistance 6=Modified [place] 3=Moderate Assistance 7=Complete IndependenceSCALE: Activities may be completed with or without assistive devices. 9-Iymslrxnks-guxzyjm completes the activity by him/herself with no assistance from a helper. 5-Set-up or Clean-up Assistance-helper sets up or cleans up; patient completes activity. [place] assists only prior to or following the activity. 4-Supervision or Touching Assistance-helper provides verbal cues and/or touching/steadying and/or contact guard assistance as patient completes activity. Assistance may be provided throughout the activity or intermittently. 3-Partial/Moderate Assistance-helper does LESS THAN HALF the effort. [place] lifts, holds or supports trunk or limbs, but provides less than half the effort. 2-Substantial/Maximal Assistance-helper does MORE THAN HALF the effort. [place] lifts or holds trunk or limbs and provides more than half the effort. 8-Ltqkcewjl-uyqezs does ALL the effort. Patient does none of the effort to complete the activity. Or, the assistance of 2 or more helpers is required for the patient to complete the activity. If activity was not attempted, code reason: 7-Patient Refused. 9-Not Applicable-not attempted and the patient did not perform the activity before the current illness, exacerbation or injury. 10-Not Attempted due to Environmental Limitations-(lack of equipment, weather restraints, etc.). 88-Not Attempted due to Medical Conditions or Safety Concerns. Roll Left to Right (QC): 2 Sit to Lying (QC): 2 Sit to Stand (QC): 2 Chair/Zkk-le-Fkbjg Xfer(QC): 2 Car Transfer (QC): 88 Gait Training Does the Patient Walk?: Yes Distance: 15' Walk 10 feet (QC): 4 Walk 50 ft with 2 Turns(QC): 88 Walk 150 ft (QC): 88 Walking 10ft/uneven surface-QC: 88 Gait Persons Needed: 1 Gait Assistive Device: FWW Wheelchair Training Does the Pt Use a Wheelchair?: Yes Wheel 50 ft with 2 turns (QC): 3 Wheel 150 ft (QC): 4 Type of Wheelchair: Manual Stair Training #of Steps: 1 1 Step (curb) (QC): 88 4 Steps (QC): 88 12 Steps (QC): 88 Stairs: Pattern: Step to Balance Picking up an Object (QC): 88 ADL-Treatment Eating (QC): 3 (Pt states fed self this am, though continued to "miss (his) mouth." Pt states undershot many times and required increased time/ mejia ntration. Pt is educated on use of pillow to prop RUE during feeding. During med management, pt requires nursing to bring cup to mouth. 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 Obesity DM Neuropathy Anemia 7.4 on 01/06/21 but declined transfusion and iron infusions until changing mind s/p 2 units blood 01/07/21 O2 dependence Right great toe pain consulted Dr Rob 12/30/20 dx with gout and placed on Indocin Early sepsis 01/07/21 due to PNA placed on abx and IVF Plan: IRF protocol Monitor O2 O2 supplement 12/05/20: O2 maintained IRF protocol Cardiology consultation appreciated Midline replacement 12/06/20: Cardiology consult appreciated Decrease insulin Midline Monitor closely 12/07/20: Monitor closely O2 wean Increase acitivity Maintain Remeron and Melatonin 12/08/20: Monitor closely Check labs in am Monitor tachycardia Remeron and Melatonin 12/09/20: Labs normal Improved strength Weaning O2 Monitor insomnia Increase insulin 12/10/20: Monitor O2 Increase strength Severe myopathy of legs 12/11/20: Difficult to progress Continue therapy May need NHP 12/12/20: Pain control with Oxycodone Monitor bowels Monitor O2 12/13/20: Monitor pain Wean O2 CPAP mask seems to be working better 12/14/20: Improved status Stood up today with help O2 12/15/20: Wean O2 Monitor ambulation CPAP at night 12/16/20: Monitor progress Decubitus ulcer management Monitor BP 12/17/20: Family education/training today Monitor O2 CPAP with O2 12/18/20: Monitor O2 NH Wednesday Continue to work on stamina 12/19/20: Monitor O2 CPAP 12/20/20: Decubitus ulcer management Monitor O2 Replace grabber 12/21/20: Monitor O2 KRIS CPAP 12/22/20: DC Wednesday to [place] Home O2 evaluation 12/23/20: DC midline DC tomorrow to [place] Needs eye exam soon for blurry vision 12/24/20: DC on hold Monitor O2 12/25/20: Continue therapy Making significant progress 12/26/20: Monitor progress Standing now May be able to DC home? 12/27/20: Much improved status Improved standing No pain reported 12/28/20: Walked a bit but he gets discouraged so quickly Pain controlled in his foot Monitor cough 12/29/20: Started scheduled insulin AC Adjusted Levemir to 10 units HS since sugars are low in am and maintained Levemir 20 units at bfast Check labs in am 12/30/20: Right great toe pain eval by Dr Rob Check uric acid and xray Monitor sugar 12/31/20: Indocin for gout Monitor closely Pain control 01/01/21: Gout treatment Monitor closely Pain control IRF protocol 01/02/21: O2 Gout treatment Monitor dyspnea 01/03/21: Gout treatment Monitor O2 and dyspnea 01/04/21: O2 wean Monitor foot pain Indocin taper 01/05/21: Monitor low BP Change Gabapentin to BID from TID 01/06/21: Hgb 7.4 but patient declines transfusion and iron infusions Monitor O2 01/07/21: Blood transfusions [address] Zuñiga consultation Cardiology appreciated Hold OAC 01/08/21: HLIVF IV abx Appreciate Dr Zuñiga Monitor hgb Hold OAC 01/09/21: Hgb stable Restarted OAC Allopurinol started yesterday Wraps to legs Abx 01/10/21: Indocin for the gout IV abx Patient declined Dispo pending May become a hospice candidate 01/11/21: Actually improved Diet improved Replace potassium Eraxis maintained 01/12/21: Improved overall today and was able to stand Eraxis Abx completed Indocin helps a lot 01/13/21: Appreciate Dr Zuñiga help Decrease O2 (1) COVID-19 (2) RICHY on CPAP (3) Obesity (4) Diabetes (5) Hypertension (6) Edema (7) Neuropathy (8) Anemia (9) Advanced age (10) Gout DEANNA BOO DO Jan 13, 2021 09:03
[2021-01-13] MEDS: ADVAIR HFA 115/21 MCG INHALER 8 GM IH SCH ×2 (09:29→21:03)
[2021-01-13] MEDS: UMECLIDINIUM BROMIDE (INCRUSE ELLIPTA) 7'S IH SCH (09:30)
[2021-01-13] MEDS: polyethylene glycoL POWDER 17 GM (MIRALAX) PACK PO SCH ×2 (09:52→19:58)
[2021-01-13] MEDS: SENNA W/DOCUSATE (SENOKOT S) TABLET PO SCH ×2 (09:52→19:58)
[2021-01-13] MEDS: DOCUSATE SODIUM 100 MG (COLACE) CAP PO SCH ×2 (09:52→20:46)
--- NOTE | 2021-01-13 10:23 | Physical Therapy Daily Note ---
PT Daily Note-Current Subjective Patient in bed pre tx, agrees to PT, has unrated pain in left ankle. Appearance Patient in WC at bedside post tx with nurse call, phone, tray, all needs met. Mental Status Patient Orientation: Person, Place, Situation Attachments: Oxygen, IV Transfers SCALE: Activities may be completed with or without assistive devices. 8-Ltkqzsscrs-fzvrwqs completes the activity by him/herself with no assistance from a helper. 5-Set-up or Clean-up Assistance-helper sets up or cleans up; patient completes activity. [place] assists only prior to or following the activity. 4-Supervision or Touching Assistance-helper provides verbal cues and/or touching/steadying and/or contact guard assistance as patient completes activity . Assistance may be provided throughout the activity or intermittently. 3-Partial/Moderate Assistance-helper does LESS THAN HALF the effort. [place] lifts, holds or supports trunk or limbs, but provides less than half the effort. 2-Substantial/Maximal Assistance-helper does MORE THAN HALF the effort. [place] lifts or holds trunk or limbs and provides more than half the effort. 6-Yrwnjntcq-pamvpo does ALL the effort. Patient does none of the effort to complete the activity. Or, the assistance of 2 or more helpers is required for the patient to complete the activity. If activity was not attempted, code reason: 7-Patient Refused. 9-Not Applicable-not attempted and the patient did not perform the activity before the current illness, exacerbation or injury. 10-Not Attempted due to Environmental Limitations-(lack of equipment, weather restraints, etc.). 88-Not Attempted due to Medical Conditions or Safety Concerns. Roll Left & Right (QC): 4 Lying to Sitting/Side of Bed(Q: 4 Sit to Stand (QC): 88 Chair/Cww-js-Acfir Xfer(QC): 2 Patient sat on the side of the bed with SBA, could not complete a sliding board transfer safely, had to perform a stand pivot transfer with max assist. Cues for safety and hand placement Weight Bearing Full Weight Bearing Full Weight Bearing Gait Training Gait Assistive Device: FWW Wheelchair Training Does the Pt Use a Wheelchair?: Yes Wheel 50 ft with 2 turns (QC): 3 Type of Wheelchair: Manual 100'x2 Exercises sit to stand x2 in parallel bars max assist Treatments PT bed mobility and transfers, WC mobility, functional strengthening Assessment Current Status: Poor Progress Patient continues to decline in functional mobility. Patient needs frequent rest breaks to recover, is on 6L of O2 and O2 goes down to 83% with activity, needs rest breaks to recover. PT Short Term Goals Short Term Goals Time Frame: Dec 11, 2020 Roll Left & Right: 4 (met) Sit to lyin (met) Lying to sitting on side of be: 4 (met) Sit to stand: 3 Chair/spg-lc-ruirz transfer: 3 Walk 10 feet: 3 Walk 50 feet with two turns: 3 PT Alf Goals Marine Tower Operator Goals PT Marine Tower Operator Goals Time Frame: Jan 01, 2021 Roll Left & Right (QC): 6 Sit to Lying (QC): 6 Lying-Sitting on Side/Bed(QC): 6 Sit to Stand (QC): 6 Chair/Mkn-ub-Odgee Xfer(QC): 6 Toilet Transfer (QC): 6 Car Transfer (QC): 6 Does the Patient Walk: No and Walking Goal IS indicated Walk 10 feet (QC): 6 Walk 50ft with 2 Turns (QC): 6 Walk 150 ft (QC): 6 Walking 10ft on Uneven Surface: 4 1 Step (curb) (QC): 4 4 Steps (QC): 4 12 Steps (QC): 4 Picking up an Object (QC): 5 Does the Pt use WC or Scooter?: No Wheel 50 feet with 2 turns (QC: 9 Wheel 150 feet: 9 PT Plan Problem List Problem List: Activity Tolerance, Functional Strength, Safety, Balance, Gait, Transfer, Bed Mobility, ROM Treatment/Plan Treatment Plan: Continue Plan of Care Treatment Plan: Bed Mobility, Education, Functional Activity Erick, Functional Strength, Group Therapy, Gait, Safety, Therapeutic Exercise, Transfers Treatment Duration: Jan 01, 2021 Frequency: At least 5 of 7 days/Wk (IRF) Estimated Hrs Per Day: Other (see notation) Patient and/or Family Agrees t: Yes Safety Risks/Education Patient Education: Transfer Techniques, Correct Positioning, W/C Management, Safety Issues Teaching Recipient: Patient Teaching Methods: Demonstration, Discussion Response to Teaching: Reinforcement Needed Time/GCodes Time In: 0800 Time Out: 0900 Total Billed Treatment Time: 60 Total Billed Treatment 1 visit FA 60' JENSEN AMBRIZ PT Jan 13, 2021 10:23
--- NOTE | 2021-01-13 11:18 | Podiatry Progress Note ---
Standard Progress Note Progress Notes/Assess & Plan Date Seen by a Provider: Jan 13, 2021 Time Seen by a Provider: 11:13 Progress/Assessment & Plan The patient states that the pain to the left ankle has improved but still present. It feels like "a sprained ankle." There is no pain to the right foot at this time. On examination, there is no pain with palpation or with passive yomro-de-yaoqki to the left ankle. There is pitting edema to the rear foot and ankle bilaterally. Dx: Gout right hallux - improved Gout left ankle - improved Edema Plan: Continue with allopurinol daily. Recommend the use of Colchicine 0.6mg as needed, not to exceed 1.2mg a day. Final Diagnosis Gout HAIR COLON DPM Jan 13, 2021 11:17
[2021-01-13] MEDS: PIPERACILLIN/TAZO 4.5 GM/NS 100 ML IV SCH ×4 (11:47→20:48)
[2021-01-13 12:00] VITALS: BP 108/58
--- NOTE | 2021-01-13 12:06 | Occupational Ther Daily Note ---
OT Current Status-Daily Note Subjective Pt. does not report pain, but does state that he is very tired. Appearance Pt. up in wheelchair. Agrees to work with OT. Mental Status/Objective Patient Orientation: Person, Place Attachments: IV, Oxygen ADL-Treatment Therapy Code Descriptions/Definitions Functional Bradley Measure: 0=Not Assessed/NA 4=Minimal Assistance 1=Total Assistance 5=Supervision or Setup 2=Maximal Assistance 6=Modified Bradley 3=Moderate Assistance 7=Complete IndependenceSCALE: Activities may be completed with or without assistive devices. 6-Gzahwqntmx-cxrpdpu completes the activity by him/herself with no assistance from a helper. 5-Set-up or Clean-up Assistance-helper sets up or cleans up; patient completes activity. [place] assists only prior to or following the activity. 4-Supervision or Touching Assistance-helper provides verbal cues and/or touching/steadying and/or contact guard assistance as patient completes activity. Assistance may be provided throughout the activity or intermittently. 3-Partial/Moderate Assistance-helper does LESS THAN HALF the effort. [place] lifts, holds or supports trunk or limbs, but provides less than half the effort. 2-Substantial/Maximal Assistance-helper does MORE THAN HALF the effort. [place] lifts or holds trunk or limbs and provides more than half the effort. 0-Sjzuxziqm-nihcsd does ALL the effort. Patient does none of the effort to complete the activity. Or, the assistance of 2 or more helpers is required for the patient to complete the activity. If activity was not attempted, code reason: 7-Patient Refused. 9-Not Applicable-not attempted and the patient did not perform the activity before the current illness, exacerbation or injury. 10-Not Attempted due to Environmental Limitations-(lack of equipment, weather restraints, etc.). 88-Not Attempted due to Medical Conditions or Safety Concerns. Eating (QC): 6 Oral Hygiene (QC): 5 Shower/Bathe Self (QC): 3 (Mod assist ) Upper Body Dressing (QC): 3 (Min assist) Lower Body Dressing (QC): 2 On/Off Footwear: 2 Toileting Hygiene (QC): 2 Pt. declines showering but agrees to sponge bathe. Pt. states that he is tired. Pt. on 4 L 02 and sats monitored at 97% throughout treatment. Pt. requires max assistance to stand at bar in bathroom. OT doffs shorts for him. Rear yo area cleansed. Noted slight incontinence. Pt. able to cleanse front yo area, but noted that pt. spills urine when attempting to use urinal. Pt. brushed teeth and hair at sink from wheelchair level, and attempted to shave face. Requ ired assistance to self propel to therapy gym. Completed 5 minutes on arm bike at min resistance for increased UE strength and endurance. All needs met back in room. Education OT Patient Education: Correct positioning, Modified ADL techniques, Progress toward Goal/Update tx plan, Purpose of tx/functional activities, Reviewed precautions, Rehab process, Transfer techniques Teaching Recipient: Patient Teaching Methods: Demonstration, Discussion Response to Teaching: Verbalize Understanding, Return Demonstration OT Short Term Goals Short Term Goals Time Frame: Dec 11, 2020 Eatin Oral hygiene: 88 Toileting hygiene: 2 Shower/bathe self: 3 Upper body dressin Lower body dressin Putting on/taking off footwear: 6 OT Half-Way Goals Mortgage Loan Processing Clerk Goals Time Frame: Dec 25, 2020 Eating (QC): 6 Oral Hygiene (QC): 6 Toileting Hygiene (QC): 5 Shower/Bathe Self (QC): 5 Upper Body Dressing (QC): 6 Lower Body Dressing (QC): 4 On/Off Footwear (QC): 6 Additional Goals: 1-Demonstrate ADL Tasks, 2-Verbalize Understanding, 3- ImproveStrength/Erick 1=Demonstrate adherence to instructed precautions during ADL tasks. 2=Patient will verbalize/demonstrate understanding of assistive devices/modifications for ADL. 3=Patient will improve strength/tolerance for activity to enable patient to perform ADL's. OT Education/Plan Problem List/Assessment Assessment: Decreased Activ Tolerance, Decreased UE Strength, Dependent Transfers, Impaired Funct Balance, Impaired I ADL's, Impaired Self-Care Skills Discharge Recommendations Plan/Recommendations: Continue POC Therapy Discharge Recommendati: 24 Hour Supervision Treatment Plan/Plan of Care Treatment,Training & Education: Yes Patient would benefit from OT for education, treatment and training to promote independence in ADL's, mobility, safety and/or upper extremity function for ADL's. Plan of Care: ADL Retraining, Caregiver Training, Functional Mobility, Group Exercise/Act as Ind, UE Funct Exercise/Act Treatment Duration: Dec 25, 2020 Frequency: Modified Program (IRF) Estimated Hrs Per Day: 1.5 hours per day Agreement: Yes Rehab Potential: Fair Time/GCodes Start Time: 10:00 Stop Time: 11:15 Total Time Billed (hr/min): 75 Billed Treatment Time 1, ADL x 45minutes, Ex x 15minutes, FA x 15minutes CAMILA SINCLAIR OT Jan 13, 2021 12:06
--- NOTE | 2021-01-13 15:16 | Physical Therapy Daily Note ---
PT Daily Note-Current Subjective Agreeable to ther ex this visit. Reports he is tired of being here. Reports he is not feeling any better. Transfers SCALE: Activities may be completed with or without assistive devices. 7-Jykilkhnyl-szwivbl completes the activity by him/herself with no assistance from a helper. 5-Set-up or Clean-up Assistance-helper sets up or cleans up; patient completes activity. [place] assists only prior to or following the activity. 4-Supervision or Touching Assistance-helper provides verbal cues and/or touching/steadying and/or contact guard assistance as patient completes activity. Assistance may be provided throughout the activity or intermittently. 3-Partial/Moderate Assistance-helper does LESS THAN HALF the effort. [place] lifts, holds or supports trunk or limbs, but provides less than half the effort. 2-Substantial/Maximal Assistance-helper does MORE THAN HALF the effort. [place] lifts or holds trunk or limbs and provides more than half the effort. 0-Gsxnoxfix-buihzo does ALL the effort. Patient does none of the effort to complete the activity. Or, the assistance of 2 or more helpers is required for the patient to complete the activity. If activity was not attempted, code reason: 7-Patient Refused. 9-Not Applicable-not attempted and the patient did not perform the activity be fore the current illness, exacerbation or injury. 10-Not Attempted due to Environmental Limitations-(lack of equipment, weather restraints, etc.). 88-Not Attempted due to Medical Conditions or Safety Concerns. Weight Bearing Full Weight Bearing Full Weight Bearing Exercises Seated Therapy Exercises: Ankle pumps, Long arc quads, Hip flexion, Hamstring Curls, Hip abd/add, Glut set Seated Reps: 15 (Functional strengthening and activity tolerance. ) Treatments Also had pt reposition in chair to change pressure area on buttock. Educated pt on importance of frequent position changes. Assessment Pt appears tired this afternoon. Appears uncomfortable in his chair and noted feeling a bit better after repositioning. PT Short Term Goals Short Term Goals Time Frame: Dec 11, 2020 Roll Left & Right: 4 (met) Sit to lyin (met) Lying to sitting on side of be: 4 (met) Sit to stand: 3 Chair/lhr-oj-dtrqp transfer: 3 Walk 10 feet: 3 Walk 50 feet with two turns: 3 PT Fpc Goals Fpc Goals PT Fpc Goals Time Frame: Jan 01, 2021 Roll Left & Right (QC): 6 Sit to Lying (QC): 6 Lying-Sitting on Side/Bed(QC): 6 Sit to Stand (QC): 6 Chair/Ifj-gm-Yszpk Xfer(QC): 6 Toilet Transfer (QC): 6 Car Transfer (QC): 6 Does the Patient Walk: No and Walking Goal IS indicated Walk 10 feet (QC): 6 Walk 50ft with 2 Turns (QC): 6 Walk 150 ft (QC): 6 Walking 10ft on Uneven Surface: 4 1 Step (curb) (QC): 4 4 Steps (QC): 4 12 Steps (QC): 4 Picking up an Object (QC): 5 Does the Pt use WC or Scooter?: No Wheel 50 feet with 2 turns (QC: 9 Wheel 150 feet: 9 PT Plan Treatment/Plan Treatment Plan: Continue Plan of Care Treatment Plan: Bed Mobility, Education, Functional Activity Erick, Functional Strength, Group Therapy, Gait, Safety, Therapeutic Exercise, Transfers Treatment Duration: Jan 01, 2021 Frequency: At least 5 of 7 days/Wk (IRF) Estimated Hrs Per Day: Other (see notation) Patient and/or Family Agrees t: Yes Safety Risks/Education Patient Education: Correct Positioning, Safety Issues Time/GCodes Time In: 235 Time Out: 258 Total Billed Treatment Time: 23 Total Billed Treatment visit EX 23 BRITNEY PACHECO PT Jan 13, 2021 15:16
[2021-01-13 16:00] VITALS: BP 107/76
[2021-01-13] MEDS: COLCHICINE 0.6 MG (COLCRYS) TABLET PO SCH (18:01)
[2021-01-13] MEDS: traZODone 50 MG (DESYREL) TAB PO SCH (20:45)
[2021-01-13] MEDS: MELATONIN 3 MG TABLET PO SCH (20:46)
[2021-01-13 21:04] VITALS: BP 116/72
[2021-01-14 00:23] VITALS: BP 127/66
[2021-01-14] MEDS: RT-ALBUTEROL/IPRATROPIUM 3 ML (DUONEB) VIAL IH SCH ×3 (02:32→18:26)
[2021-01-14 04:00] VITALS: BP 128/76
[2021-01-14] MEDS: PIPERACILLIN/TAZO 4.5 GM/NS 100 ML IV SCH ×6 (04:06→20:45)
[2021-01-14] MEDS: inSUlin ASPART (NovoLOG) 1 UNIT/0.01 ML (CHARGE PER UNIT) SC SCH ×4 (05:29→20:13)
[2021-01-14 07:49] VITALS: BP 124/61
[2021-01-14] MEDS: ALLOPURINOL 100 MG (ZYLOPRIM) TAB PO SCH (07:54)
[2021-01-14] MEDS: VITAMIN D3 25 MCG (1,000 UNITS) TABLET PO SCH (07:54)
[2021-01-14] MEDS: PANTOPRAZOLE 40 MG (PROTONIX) TAB PO SCH ×2 (07:54→20:46)
[2021-01-14] MEDS: TAMSULOSIN 0.4 MG (FLOMAX) CAP PO SCH (07:54)
[2021-01-14] MEDS: FINASTERIDE (PROSCAR) 5 MG TAB PO SCH (07:55)
[2021-01-14] MEDS: DOCUSATE SODIUM 100 MG (COLACE) CAP PO SCH ×2 (07:55→20:57)
[2021-01-14] MEDS: APIXABAN 5 MG (ELIQUIS) TABLET PO SCH ×2 (07:55→20:46)
[2021-01-14] MEDS: GABAPENTIN 100 MG (NEURONTIN) CAP PO SCH ×2 (07:55→20:46)
[2021-01-14] MEDS: SENNA W/DOCUSATE (SENOKOT S) TABLET PO SCH ×2 (07:55→20:57)
[2021-01-14] MEDS: polyethylene glycoL POWDER 17 GM (MIRALAX) PACK PO SCH ×2 (07:55→20:57)
[2021-01-14] MEDS: ASCORBIC ACID (VIT C) 500 MG TABLET PO SCH ×2 (07:55→17:01)
[2021-01-14] MEDS: SALINE NASAL SPRAY (OCEAN) 45 ML BTL NS SCH ×3 (07:56→20:58)
[2021-01-14] MEDS: SALIVA STIMULANT MOUTH SPRAY (BIOTENE) 1.5 OZ MM SCH ×2 (07:57→12:18)
[2021-01-14] MEDS: FLUTICASONE NASAL SPRAY (FLONASE) 16 GM BTL NS SCH (07:57)
[2021-01-14] MEDS: IRON SUCROSE 200 MG/10 ML (VENOFER) VIAL IV SCH (08:04)
[2021-01-14] MEDS: ANIDULAFUNGIN INJECTION 100 MG in NS (IVPB) 100 ML IV SCH (08:54)
--- NOTE | 2021-01-14 08:54 | Physical Therapy Daily Note ---
PT Daily Note-Current Subjective Patient in bed pre tx, agrees to PT, has 2/10 pain in left foot, less than before. Appearance Patient in WC at bedside post tx with nurse call, phone, tray, all needs met. Mental Status Patient Orientation: Person, Place, Situation Attachments: Oxygen Transfers SCALE: Activities may be completed with or without assistive devices. 4-Uohfsyootb-ovmlvxb completes the activity by him/herself with no assistance from a helper. 5-Set-up or Clean-up Assistance-helper sets up or cleans up; patient completes activity. [place] assists only prior to or following the activity. 4-Supervision or Touching Assistance-helper provides verbal cues and/or touching/steadying and/or contact guard assistance as patient completes activity. Assistance may be provided throughout the activity or intermittently. 3-Partial/Moderate Assistance-helper does LESS THAN HALF the effort. [place] lifts, holds or supports trunk or limbs, but provides less than half the effort. 2-Substantial/Maximal Assistance-helper does MORE THAN HALF the effort. [place] lifts or holds trunk or limbs and provides more than half the effort. 8-Loygyetxr-zbxsjg does ALL the effort. Patient does none of the effort to complete the activity. Or, the assistance of 2 or more helpers is required for the patient to complete the activity. If activity was not attempted, code reason: 7-Patient Refused. 9-Not Applicable-not attempted and the patient did not perform the activity before the current illness, exacerbation or injury. 10-Not Attempted due to Environmental Limitations-(lack of equipment, weather restraints, etc.). 88-Not Attempted due to Medical Conditions or Safety Concerns. Roll Left & Right (QC): 6 Lying to Sitting/Side of Bed(Q: 4 Sit to Stand (QC): 2 Chair/Lwy-vi-Rvksu Xfer(QC): 2 Max assist for transfer to , licensed physical therapy assistant pulls his shorts up during the transfer. Weight Bearing Full Weight Bearing Full Weight Bearing Wheelchair Training Does the Pt Use a Wheelchair?: Yes Wheel 50 ft with 2 turns (QC): 4 Type of Wheelchair: Manual 120'x2 Exercises standing in parallel bars x3 for about 1 min each time, WC pushups 3 sets of 10 Treatments bed mobility and transfers, standing, UE exercise, WC mobility Assessment Current Status: Fair Progress improved foot pain, may be ready to start ambulating again tomorrow. PT Short Term Goals Short Term Goals Time Frame: Dec 11, 2020 Roll Left & Right: 4 (met) Sit to lyin (met) Lying to sitting on side of be: 4 (met) Sit to stand: 3 Chair/tjw-ya-btwys transfer: 3 Walk 10 feet: 3 Walk 50 feet with two turns: 3 PT Credit Union Manager Goals Credit Union Manager Goals PT Group Home Goals Time Frame: Jan 01, 2021 Roll Left & Right (QC): 6 Sit to Lying (QC): 6 Lying-Sitting on Side/Bed(QC): 6 Sit to Stand (QC): 6 Chair/App-bv-Gjxzi Xfer(QC): 6 Toilet Transfer (QC): 6 Car Transfer (QC): 6 Does the Patient Walk: No and Walking Goal IS indicated Walk 10 feet (QC): 6 Walk 50ft with 2 Turns (QC): 6 Walk 150 ft (QC): 6 Walking 10ft on Uneven Surface: 4 1 Step (curb) (QC): 4 4 Steps (QC): 4 12 Steps (QC): 4 Picking up an Object (QC): 5 Does the Pt use WC or Scooter?: No Wheel 50 feet with 2 turns (QC: 9 Wheel 150 feet: 9 PT Plan Problem List Problem List: Activity Tolerance, Functional Strength, Safety, Balance, Gait, Transfer, Bed Mobility, ROM Treatment/Plan Treatment Plan: Continue Plan of Care Treatment Plan: Bed Mobility, Education, Functional Activity Erick, Functional Strength, Group Therapy, Gait, Safety, Therapeutic Exercise, Transfers Treatment Duration: Jan 01, 2021 Frequency: At least 5 of 7 days/Wk (IRF) Estimated Hrs Per Day: Other (see notation) Patient and/or Family Agrees t: Yes Safety Risks/Education Patient Education: Transfer Techniques, Correct Positioning, W/C Management, Safety Issues Teaching Recipient: Patient Teaching Methods: Demonstration, Discussion Response to Teaching: Reinforcement Needed Time/GCodes Time In: 0800 Time Out: 0900 Total Billed Treatment Time: 60 Total Billed Treatment 1 visit EX 30' FA 30' EJNSEN AMBRIZ PT Jan 14, 2021 08:54
[2021-01-14] MEDS ORDERED: FUROSEMIDE 40 MG/4 ML INJ (LASIX) IVP ONE (09:00)
--- NOTE | 2021-01-14 09:04 | Cardiology Progress Note ---
Subjective Date Seen by Provider: Jan 14, 2021 Time Seen by Provider: 08:00 Subjective/Events-last exam Patient sitting up in bed, continues to have some dyspnea on exertion. Focused Exam Lactate Level Objective-Cardiology Exam Last Set of Vital Signs Vital Signs 01/14/21 12:19 Temp 36.2 Pulse 103 Resp 20 B/P (MAP) 103/61 (75) Pulse Ox 97 O2 Delivery High Flow N/C O2 Flow Rate 5.00 Capillary Refill : I&O Intake and Output 01/14/21 00:00 Intake Total 1250 ml Output Total 2825 ml Balance -1575 ml Intake Oral 1250 ml Output Urine Total 2825 ml General: Alert, Oriented X3, Cooperative HEENT: Atraumatic, PERRLA Neck: Supple, No JVD, No Thyromegaly Lungs: Clear to Auscultation, Normal Air Movement Heart: Normal S1, Normal S2, No Murmurs, Other (irregularly irregular) Abdomen: Normal Bowel Sounds, Soft, No Tenderness, No Hepatosplenomegaly, No Masses Extremities: No Clubbing, No Cyanosis Skin: No Rashes, No Significant Lesion Neuro: Normal Speech, Cranial Nerves 3-12 NL Psych/Mental Status: Mental Status NL, Mood NL A/P-Cardiology Admission Diagnosis Afib HTN HLP DM Assessment/Plan Atrial fibrillation with controlled ventricular rate, maintained on Eliquis, continue to monitor. Pneumonia, worsening, Dr. Zuñiga managing. Hypertension, better control at this time. 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 Dawkins Critical illness myopathy, COVID-19, continue PT/OT RICHY, treated with CPAP, managed by Dr Dawkins Peripheral edema- I will give Lasix 20mg IV x 1 dose Patient was seen and evaluated with Rhona, examination performed, management plan was discussed, agree with the current scribed note, I made few changes to the note using Italic font Patient was sitting at bedside, still using 5 L oxygen, still having some shortness of breath. No chest pain. No syncope RHONA MARTINEZ Jan 14, 2021 09:04 JOSE MARIA QUEZADA MD Jan 14, 2021 14:43
[2021-01-14] MEDS: ADVAIR HFA 115/21 MCG INHALER 8 GM IH SCH ×2 (10:01→18:26)
[2021-01-14] MEDS: UMECLIDINIUM BROMIDE (INCRUSE ELLIPTA) 7'S IH SCH (10:01)
--- NOTE | 2021-01-14 11:13 | PM&R Progress Note ---
Subjective HPI/CC On Admission Date Seen by Provider: Jan 14, 2021 Time Seen by Provider: 10:30 Subjective/Events-last exam 01/14/21: Pt improved today Lasix IV given of 20 Mg and Pt doing much better Having some hallucinations at times Will start Biotene Mouth spray as needed Constantly talks about foot pain 01/13/21: Pt slept well Appetite ale Had a fall without injury yesterday when he slid out of his wheelchair 10 liters of oxygen last night but Dr. Zuñiga saw him and turned it down to 6 liters D-dimer is elevated but he is already on Eliquis [place] swingbed where his PCP Dr. Rinaldi will likely be required. He is too sick to go to penitentiary, doesnt meet criteria for [facility] and not acute enough to go upstairs and too sick to go home. 01/12/21: Patient much improved Eating very well today BM+ Venofer iron infusions tolerated Improved strength Was able to stand today Hallucinations at night so will stop Remeron and start Trazodone Took CPAP off last night and maintained on O2 Son visited yesterday and stayed for a long time O2 5L/min 01/11/21: HR improved on Cardizem OOB and doing well Eraxis maintained Potassium and Mag will be replaced Improved status 01/10/21: Patient getting more complicated IV abx maintained No pain reported except foot pain Not eating well Patient declined Checked meds and labs refusing therapy most of the time Indocin restarted by Dr Rob 01/09/21: Patient doing about the same Dr Zuñiga evaluated him and resp status is stable Hgb 8.2 his baseline for past few weeks. Zosyn maintained Vanc DC due to MRSA swab negative Allopurinol started yesterday Dr Rob Feet are edematous and venous stasis noted so recommended KRIS's and ZULEIKA wraps 01/08/21: Patient definitely declined since admitted but remains stable just more complicated 2 units of blood has increased hgb to 9.1 which has helped alertness Hemoccult was negative sent to lab today PPI on board OAC on hold Indocin done Dr Zuñiga saw patient and ordered Nebs IV abx maintained Complains of foot pain but not many more options for gout and neuropathy and chronic foot pain he was taking Oxycodone prior to admit before arrival 01/07/21: Patient more drowsy today. Started septic w/u and lactic acid was elevated at 2.1 so started gentle IVF and consulted Dr Zuñiga and started on abx empirically for bilateral ATX vs infiltrate Agreeable for transfusion now so ordered 2 units and will give iron infusion tomorrow also Complex case overall OHA is held Hemoccult stools ordered 01/06/21: Hgb 7.4 and discussed placement of midline for transfusion of 1 unit and/or iron infusions and after a great deal of thought he declines both Patient doing well otherwise Fatigue about the same NHP Occult stool ordered 01/05/21: Complains about sleeping all the time Changed Gabapentin to BID instead of TID Large BM daily Mildly low BP noted Tremor reported to RN but not discussed with me 01/04/21: Sugars improved 113 this am Foot pain improved Indocin taper maintained 01/03/21: Uric acid ordered by Dr Rob Toe is better Decubitus ulcer is improved No pain otherwise Severe dyspnea when active but he seems to not be bothered about it 01/02/21: Left foot pain occurred last night Right great toe improved since Indocin BM+ NHP at DC 01/01/21: Pt was slightly hypotensive today but cardiology is managing Indocin is helping the gout in his foot Bowels are moving 3.5 liters maintained DC planned for 01/08/21 to NH 12/31/20: Dr. Rob diagnosed gout so Indocin was started Remains on 3.5 liters of O2 Scared to not use the sit to stand 12/30/20: Bowels moved yesterday Doing pretty well Right great toe pain so consulted Dr. Rob Uric acid will be added and X-ray of the right foot 12/29/20: Patient frustrated BM yesterday Sputum produced and sent down to lab? Sugar 196 No pain meds required today 12/28/20: Alevan on his buttock Coughed up some green sputum 3 times yesterday but lungs are clear BM large today Oxycodone for his left foot pain helped 2+ edema Sugar 167 He is very pessimistic about his overall progress which cannot be redirected 12/27/20: Transferring without the site to stand now Improved overall BM+ Alevan vs. butt paste on buttock He sits in chair all day long on computer 12/26/20: Insurance declined skilled for now Standing and actually progressing well 2L/min and doing well DC scheduled APAP TID 12/25/20: Awaiting penitentiary placement Actually working pretty well with therapy Denies any significant new pain Blurry vision still continues Didnt sleep real well last night 12/24/20: Eyes were better but the more he works on the computer the blurry issues return DC is on hold due to NH processes 12/23/20: Pt doing pretty well Buttock decubitus ulcer needs further treatment Discharge planned for tomorrow Hemaglobin 9.3 Midline will be discontinued at his request 12/22/20: Home O2 evaluation tomorrow for DC Wednesday DM education will be provided DC planned for NH 12/21/20: Doing well Slept well BM today Edema improved on KRIS's Decubitus ulcers worsened due to sitting in chair all day long IS use increased 12/20/20: Now has daily complaints about minor things since he was notified last week he would need a [place] Nurse broke his grabber so will obtain replacement for him Butt paste placed on buttocks Stage 2 No other issues 12/19/20: No major issues Bowels are moving alf placement on Wednesday12/18/20: Discharge Wednesday to the penitentiary Family training did not go well Son was there but did not engage Insists on going home but that would not be a possibility Placing Alevin on buttock 12/17/20: Family training today at 10:00 Still has a stage 2 buttock decubitus ulcer Overall feels like he is doing much better Son at bedside when I rounded later today and he was evaluating his progress 12/16/20: Pt doing pretty well Bowels moved today Left midline is functioning Blood sugar 147 Stage 2 decubitus ulcer on the buttock Working really hard to stand 12/15/20: Overall doing well No issues BM+ No falls 12/14/20: Doing well BM+ Dyspnea still continues No pain 12/13/20: Patient more alert today and energized No pain reported Oxycodone helps the foot pain Participating with therapy 12/12/20: Pt doing a lot better Having a lot of pain, takes Oxycodone for his foot and leg pain Bowels are moving Sleeping better Pt very well could require a penitentiary since he lives alone and is just not progressing well 12/11/20: No major issues Pretty much has plateaued and not made much progress with ambulation Epistaxis of the left nostril Nasal sprays will be continued Re-check and check with insurance coverage but he very well may need to be in a penitentiary 12/10/20: Pt doing pretty well Slept on and off last night Remains on 4 liters of O2 Swelling in his feel is pretty minimal Did not use his BiPAP last night and that likely is the cause of not sleeping well 12/09/20: Pt slept pretty well Bowels are moving PLTs are 97, 000 Normal WBC down from when he first arrived Denies any significant issues Trying to get strong enough to walk 12/08/20: Slept well last night Remeron and Melatonin has helped him a lot Sinus tachy last night BM 12/06/20 so laxatives given No other issues 12/07/20: Slept better Yonker provided for phlem HR 60 Appreciate Cardiology 4L/min O2 BM 12/06/20 12/06/20: HR 122 Cardiology consulted Sugar 54 so decreasing insulin BM++ No pain reported No sleeping well so added hypnotics of Melatonin and Remeron 12/05/20: Patient doing well Worn out from fatigue Sugars are ok No pain reported Tachycardic so consulting Dr Carranza Midline was accidently pulled out so need a new one placed Checked meds and labs Review of Systems General: Fatigue, Malaise Musculoskeletal: foot pain Neurological: Weakness Objective Exam Vital Signs Vital Signs Date Time Temp Pulse Resp B/P (MAP) Pulse Ox O2 Delivery O2 Flow Rate FiO2 01/15/21 02:00 94 NIV CPAP 6.00 01/15/21 00:17 36.3 83 20 130/63 (85) Capillary Refill : General Appearance: No Apparent Distress, WD/WN, Anxious, Chronically ill, Obese HEENT: PERRL/EOMI, Normal ENT Inspection, Pharynx Normal Neck: Full Range of Motion, Normal Inspection, Non Tender, Supple, Carotid Bruit Respiratory: Chest Non Tender, Lungs Clear, No Accessory Muscle Use, No Respiratory Distress, Decreased Breath Sounds Cardiovascular: Regular Rate, Rhythm, No Gallop, No JVD, No Murmur, Normal Peripheral Pulses Gastrointestinal: Normal Bowel Sounds, No Organomegaly, No Pulsatile Mass, Non Tender, Soft Back: Normal Inspection, No CVA Tenderness, No Vertebral Tenderness Extremity: Normal Capillary Refill, Normal Inspection, Normal Range of Motion, Non Tender, No Calf Tenderness, Pedal Edema Neurologic/Psychiatric: Alert, Oriented x3, No Motor/Sensory Deficits, station attendant II- XII Norm as Tested, Depressed Affect, Motor Weakness Skin: Normal Color, Warm/Dry Lymphatic: No Adenopathy Results/Procedures Lab Patient resulted labs reviewed. FIM Transfers Therapy Code Descriptions/Definitions Functional [place] Measure: 0=Not Assessed/NA 4=Minimal Assistance 1=Total Assistance 5=Supervision or Setup 2=Maximal Assistance 6=Modified [place] 3=Moderate Assistance 7=Complete IndependenceSCALE: Activities may be completed with or without assistive devices. 2-Aabgevslht-akhanpa completes the activity by him/herself with no assistance from a helper. 5-Set-up or Clean-up Assistance-helper sets up or cleans up; patient completes activity. [place] assists only prior to or following the activity. 4-Supervision or Touching Assistance-helper provides verbal cues and/or touching/steadying and/or contact guard assistance as patient completes activity. Assistance may be provided throughout the activity or intermittently. 3-Partial/Moderate Assistance-helper does LESS THAN HALF the effort. [place] lifts, holds or supports trunk or limbs, but provides less than half the effort. 2-Substantial/Maximal Assistance-helper does MORE THAN HALF the effort. [place] lifts or holds trunk or limbs and provides more than half the effort. 9-Asrdzjrva-momybh does ALL the effort. Patient does none of the effort to com plete the activity. Or, the assistance of 2 or more helpers is required for the patient to complete the activity. If activity was not attempted, code reason: 7-Patient Refused. 9-Not Applicable-not attempted and the patient did not perform the activity before the current illness, exacerbation or injury. 10-Not Attempted due to Environmental Limitations-(lack of equipment, weather restraints, etc.). 88-Not Attempted due to Medical Conditions or Safety Concerns. Roll Left to Right (QC): 6 Sit to Lying (QC): 2 Sit to Stand (QC): 2 Chair/Its-zi-Xfqve Xfer(QC): 2 Car Transfer (QC): 88 Gait Training Does the Patient Walk?: Yes Walk 150 ft (QC): 88 Walking 10ft/uneven surface-QC: 88 Gait Persons Needed: 1 Gait Assistive Device: FWW Wheelchair Training Does the Pt Use a Wheelchair?: Yes Wheel 50 ft with 2 turns (QC): 4 Type of Wheelchair: Manual Stair Training #of Steps: 1 1 Step (curb) (QC): 88 4 Steps (QC): 88 12 Steps (QC): 88 Stairs: Pattern: Step to Balance Picking up an Object (QC): 88 ADL-Treatment Eating (QC): 6 Oral Hygiene (QC): 5 Bathing Location: L Arm, R Arm, L Upper Leg, R Upper Leg, Chest, Abdomen, Perineal Area Shower/Bathe Self (QC): 3 (Mod assist ) Upper Body Dressing (QC): 3 (Min assist) Lower Body Dressing (QC): 2 On/Off Footwear (QC): 2 Toileting Hygiene (QC): 2 Toilet Transfer (QC): 7 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 Obesity DM Neuropathy Anemia 7.4 on 01/06/21 but declined transfusion and iron infusions until changing mind s/p 2 units blood 01/07/21 O2 dependence Right great toe pain consulted Dr Rob 12/30/20 dx with gout and placed on Indocin Early sepsis 01/07/21 due to PNA placed on abx and IVF Plan: IRF protocol Monitor O2 O2 supplement 12/05/20: O2 maintained IRF protocol Cardiology consultation appreciated Midline replacement 12/06/20: Cardiology consult appreciated Decrease insulin Midline Monitor closely 12/07/20: Monitor closely O2 wean Increase acitivity Maintain Remeron and Melatonin 12/08/20: Monitor closely Check labs in am Monitor tachycardia Remeron and Melatonin 12/09/20: Labs normal Improved strength Weaning O2 Monitor insomnia Increase insulin 12/10/20: Monitor O2 Increase strength Severe myopathy of legs 12/11/20: Difficult to progress Continue therapy May need NHP 12/12/20: Pain control with Oxycodone Monitor bowels Monitor O2 12/13/20: Monitor pain Wean O2 CPAP mask seems to be working better 12/14/20: Improved status Stood up today with help O2 12/15/20: Wean O2 Monitor ambulation CPAP at night 12/16/20: Monitor progress Decubitus ulcer management Monitor BP 12/17/20: Family education/training today Monitor O2 CPAP with O2 12/18/20: Monitor O2 NH Wednesday Continue to work on stamina 12/19/20: Monitor O2 CPAP 12/20/20: Decubitus ulcer management Monitor O2 Replace grabber 12/21/20: Monitor O2 KRIS CPAP 12/22/20: DC Wednesday to [place] Home O2 evaluation 12/23/20: DC midline DC tomorrow to [place] Needs eye exam soon for blurry vision 12/24/20: DC on hold Monitor O2 12/25/20: Continue therapy Making significant progress 12/26/20: Monitor progress Standing now May be able to DC home? 12/27/20: Much improved status Improved standing No pain reported 12/28/20: Walked a bit but he gets discouraged so quickly Pain controlled in his foot Monitor cough 12/29/20: Started scheduled insulin AC Adjusted Levemir to 10 units HS since sugars are low in am and maintained Levemir 20 units at bfast Check labs in am 12/30/20: Right great toe pain eval by Dr Rob Check uric acid and xray Monitor sugar 12/31/20: Indocin for gout Monitor closely Pain control 01/01/21: Gout treatment Monitor closely Pain control IRF protocol 01/02/21: O2 Gout treatment Monitor dyspnea 01/03/21: Gout treatment Monitor O2 and dyspnea 01/04/21: O2 wean Monitor foot pain Indocin taper 01/05/21: Monitor low BP Change Gabapentin to BID from TID 01/06/21: Hgb 7.4 but patient declines transfusion and iron infusions Monitor O2 01/07/21: Blood transfusions [address] Zuñiga consultation Cardiology appreciated Hold OAC 01/08/21: HLIVF IV abx Appreciate Dr Zuñiga Monitor hgb Hold OAC 01/09/21: Hgb stable Restarted OAC Allopurinol started yesterday Wraps to legs Abx 01/10/21: Indocin for the gout IV abx Patient declined Dispo pending May become a hospice candidate 01/11/21: Actually improved Diet improved Replace potassium Eraxis maintained 01/12/21: Improved overall today and was able to stand Eraxis Abx completed Indocin helps a lot 01/13/21: Appreciate Dr Zuñiga help Decrease O2 01/14/21: Monitor closely Swing bed eval for [place] close [place] and PCP (1) COVID-19 (2) RICHY on CPAP (3) Obesity (4) Diabetes (5) Hypertension (6) Edema (7) Neuropathy (8) Anemia (9) Advanced age (10) DEANNA Taveras DO Jan 14, 2021 11:13
[2021-01-14 12:19] VITALS: BP 103/61
--- NOTE | 2021-01-14 12:47 | Physical Therapy Daily Note ---
PT Daily Note-Current Subjective Patient in WC at bedside pre tx, agrees to PT,has no complaints of pain at rest. Appearance Patient in WC at bedside post tx with nurse call, phone, tray, all needs met. Mental Status Patient Orientation: Person, Place, Situation Transfers SCALE: Activities may be completed with or without assistive devices. 8-Nyrhqjwpsu-oknvxsc completes the activity by him/herself with no assistance from a helper. 5-Set-up or Clean-up Assistance-helper sets up or cleans up; patient completes activity. [place] assists only prior to or following the activity. 4-Supervision or Touching Assistance-helper provides verbal cues and/or touching/steadying and/or contact guard assistance as patient completes activity. Assistance may be provided throughout the activity or intermittently. 3-Partial/Moderate Assistance-helper does LESS THAN HALF the effort. [place] lifts, holds or supports trunk or limbs, but provides less than half the effort. 2-Substantial/Maximal Assistance-helper does MORE THAN HALF the effort. [place] lifts or holds trunk or limbs and provides more than half the effort. 3-Ixggulfqa-hqwrdj does ALL the effort. Patient does none of the effort to complete the activity. Or, the assistance of 2 or more helpers is required for the patient to complete the activity. If activity was not attempted, code reason: 7-Patient Refused. 9-Not Applicable-not attempted and the patient did not perform the activity before the current illness, exacerbation or injury. 10-Not Attempted due to Environmental Limitations-(lack of equipment, weather restraints, etc.). 88-Not Attempted due to Medical Conditions or Safety Concerns. Weight Bearing Full Weight Bearing Full Weight Bearing Exercises Seated Therapy Exercises: Ankle pumps, Long arc quads, Hip flexion Seated Reps: 20 (2 sets) BLE stretching in all planes, he was able to tolerate ankle dorsiflexion stretching bilaterally Treatments AROM, stretching Assessment Current Status: Fair Progress less left foot pain PT Short Term Goals Short Term Goals Time Frame: Dec 11, 2020 Roll Left & Right: 4 (met) Sit to lyin (met) Lying to sitting on side of be: 4 (met) Sit to stand: 3 Chair/bhs-hq-dsore transfer: 3 Walk 10 feet: 3 Walk 50 feet with two turns: 3 PT Senior Technical Manager Goals Long-Term Goals PT Long-Term Goals Time Frame: Jan 01, 2021 Roll Left & Right (QC): 6 Sit to Lying (QC): 6 Lying-Sitting on Side/Bed(QC): 6 Sit to Stand (QC): 6 Chair/Ydp-yk-Upiur Xfer(QC): 6 Toilet Transfer (QC): 6 Car Transfer (QC): 6 Does the Patient Walk: No and Walking Goal IS indicated Walk 10 feet (QC): 6 Walk 50ft with 2 Turns (QC): 6 Walk 150 ft (QC): 6 Walking 10ft on Uneven Surface: 4 1 Step (curb) (QC): 4 4 Steps (QC): 4 12 Steps (QC): 4 Picking up an Object (QC): 5 Does the Pt use WC or Scooter?: No Wheel 50 feet with 2 turns (QC: 9 Wheel 150 feet: 9 PT Plan Problem List Problem List: Activity Tolerance, Functional Strength, Safety, Balance, Gait, Transfer, Bed Mobility, ROM Treatment/Plan Treatment Plan: Continue Plan of Care Treatment Plan: Bed Mobility, Education, Functional Activity Erick, Functional Strength, Group Therapy, Gait, Safety, Therapeutic Exercise, Transfers Treatment Duration: Jan 01, 2021 Frequency: At least 5 of 7 days/Wk (IRF) Estimated Hrs Per Day: Other (see notation) Patient and/or Family Agrees t: Yes Safety Risks/Education Patient Education: Correct Positioning, Safety Issues Teaching Recipient: Patient Teaching Methods: Demonstration, Discussion Response to Teaching: Reinforcement Needed Time/GCodes Time In: 1145 Time Out: 1200 Total Billed Treatment Time: 15 Total Billed Treatment 1 visit EX 15' JENSEN AMBRIZ PT Jan 14, 2021 12:47
[2021-01-14] MEDS ORDERED: SALIVA STIMULANT MOUTH SPRAY (BIOTENE) 1.5 OZ MM PRN (14:15)
--- NOTE | 2021-01-14 14:18 | Occupational Ther Daily Note ---
OT Current Status-Daily Note Subjective No pain reported. However, pt. states that he is very tired. Appearance Pt. up in wheelchair. Agrees to work with OT. Mental Status/Objective Patient Orientation: Person, Place, Time, Situation Attachments: Oxygen ADL-Treatment Therapy Code Descriptions/Definitions Functional [place] Measure: 0=Not Assessed/NA 4=Minimal Assistance 1=Total Assistance 5=Supervision or Setup 2=Maximal Assistance 6=Modified [place] 3=Moderate Assistance 7=Complete IndependenceSCALE: Activities may be completed with or without assistive devices. 2-Aekncaaeue-wxsxxmi completes the activity by him/herself with no assistance from a helper. 5-Set-up or Clean-up Assistance-helper sets up or cleans up; patient completes activity. [place] assists only prior to or following the activity. 4-Supervision or Touching Assistance-helper provides verbal cues and/or touching/steadying and/or contact guard assistance as patient completes activity. Assistance may be provided throughout the activity or intermittently. 3-Partial/Moderate Assistance-helper does LESS THAN HALF the effort. [place] lifts, holds or supports trunk or limbs, but provides less than half the effort. 2-Substantial/Maximal Assistance-helper does MORE THAN HALF the effort. [place] lifts or holds trunk or limbs and provides more than half the effort. 8-Kcugekmqt-obwqie does ALL the effort. Patient does none of the effort to com plete the activity. Or, the assistance of 2 or more helpers is required for the patient to complete the activity. If activity was not attempted, code reason: 7-Patient Refused. 9-Not Applicable-not attempted and the patient did not perform the activity before the current illness, exacerbation or injury. 10-Not Attempted due to Environmental Limitations-(lack of equipment, weather restraints, etc.). 88-Not Attempted due to Medical Conditions or Safety Concerns. Toileting Hygiene (QC): 4 Other Treatment Pt. up in wheelchair. Pt. already has clothing on. Self propelled wheelchair to therapy gym. Pt. requires increased time. Once in therapy gym, pt. participates in series of fine motor coordination and strengthening activities with bilateral UE. Pt. able to complete nut/bolt activity, resistive clothespin activity with difficulty at shoulder level for any reach. Multiple rest breaks needed throughout. Pt. self propels back to room with increased time needed. Pt. uses urinal at wheelchair level. All needs met up in chair. Education OT Patient Education: Correct positioning, Exercise program, Modified ADL techniques, Progress toward Goal/Update tx plan, Purpose of tx/functional activities, Reviewed precautions, Rehab process, Transfer techniques Teaching Recipient: Patient Teaching Methods: Demonstration, Discussion Response to Teaching: Verbalize Understanding, Return Demonstration OT Short Term Goals Short Term Goals Time Frame: Dec 11, 2020 Eatin Oral hygiene: 88 Toileting hygiene: 2 Shower/bathe self: 3 Upper body dressin Lower body dressin Putting on/taking off footwear: 6 OT Half-Way Goals Half-Way Goals Time Frame: Dec 25, 2020 Eating (QC): 6 Oral Hygiene (QC): 6 Toileting Hygiene (QC): 5 Shower/Bathe Self (QC): 5 Upper Body Dressing (QC): 6 Lower Body Dressing (QC): 4 On/Off Footwear (QC): 6 Additional Goals: 1-Demonstrate ADL Tasks, 2-Verbalize Understanding, 3- ImproveStrength/Erick 1=Demonstrate adherence to instructed precautions during ADL tasks. 2=Patient will verbalize/demonstrate understanding of assistive devices/modifications for ADL. 3=Patient will improve strength/tolerance for activity to enable patient to perform ADL's. OT Education/Plan Problem List/Assessment Assessment: Decreased Activ Tolerance, Decreased UE Strength, Dependent Transfers, Impaired Funct Balance, Impaired I ADL's, Impaired Self-Care Skills, Restricted Funct UE ROM Discharge Recommendations Plan/Recommendations: Continue POC Therapy Discharge Recommendati: Post Acute OT Treatment Plan/Plan of Care Treatment,Training & Education: Yes Patient would benefit from OT for education, treatment and training to promote independence in ADL's, mobility, safety and/or upper extremity function for ADL's. Plan of Care: ADL Retraining, Caregiver Training, Functional Mobility, Group Exercise/Act as Ind, UE Funct Exercise/Act Treatment Duration: Dec 25, 2020 Frequency: Modified Program (IRF) Estimated Hrs Per Day: 1.5 hours per day Agreement: Yes Rehab Potential: Fair Time/GCodes Start Time: 10:00 Stop Time: 11:15 Total Time Billed (hr/min): 75 Billed Treatment Time 1, FA x 5 CAMILA SINCLAIR OT Jan 14, 2021 14:18
[2021-01-14] MEDS: ACETAMINOPHEN 325 MG TABLET PO PRN (15:34)
[2021-01-14 16:17] VITALS: BP 121/64
[2021-01-14 20:00] VITALS: BP 117/57
[2021-01-14] MEDS: MELATONIN 3 MG TABLET PO SCH (20:46)
[2021-01-14] MEDS: traZODone 50 MG (DESYREL) TAB PO SCH (20:46)
[2021-01-15] VITALS (7 sets, daily range): BP systolic 107–141; BP diastolic 56–74
[2021-01-15] MEDS: RT-ALBUTEROL/IPRATROPIUM 3 ML (DUONEB) VIAL IH SCH ×4 (02:00→20:07)
[2021-01-15] MEDS: PIPERACILLIN/TAZO 4.5 GM/NS 100 ML IV SCH ×2 (04:16)
[2021-01-15] MEDS: inSUlin ASPART (NovoLOG) 1 UNIT/0.01 ML (CHARGE PER UNIT) SC SCH ×4 (05:50→21:29)
[2021-01-15 06:02] LABS: BASOPHILS # (AUTO) 0.1 10^3/uL (0.0-0.1); BASOPHILS % (AUTO) 2 % (0-10); EOSINOPHILS % (AUTO) 1 % (0-10); HEMATOCRIT 29 % (40-54); LYMPHOCYTES % (AUTO) 19 % (12-44); MEAN CORPUSCULAR HEMOGLOBIN 29 pg (25-34); MEAN CORPUSCULAR HGB CONC 31 g/dL (32-36); MEAN CORPUSCULAR VOLUME 95 fL (80-99); MEAN PLATELET VOLUME 8.4 fL (9.0-12.2); MONOCYTES # (AUTO) 0.5 10^3/uL (0.0-1.0); MONOCYTES % (AUTO) 10 % (0-12); NEUTROPHILS # (AUTO) 3.6 10^3/uL (1.8-7.8); NEUTROPHILS % (AUTO) 67 % (42-75); PLATELET COUNT 306 10^3/uL (130-400); WHITE BLOOD COUNT 5.4 10^3/uL (4.3-11.0)
[2021-01-15 06:19] LABS: ALBUMIN 2.9 GM/DL (3.2-4.5)
[2021-01-15 06:20] LABS: POTASSIUM 3.7 MMOL/L (3.6-5.0)
[2021-01-15 06:22] LABS: TOTAL PROTEIN 6.7 GM/DL (6.4-8.2)
[2021-01-15 06:24] LABS: BILIRUBIN,TOTAL 0.6 MG/DL (0.1-1.0)
[2021-01-15 06:25] LABS: CREATININE SERUM 1.19 MG/DL (0.60-1.30)
--- NOTE | 2021-01-15 07:29 | Pulmonary Progress Note ---
Standard Progress Note Progress Notes Date Seen by Provider: Jan 15, 2021 Time Seen by Provider: 07:24 Pt states his SOB is slightly improved. Assessment & Plan PNA - Zosyn - hinton cultures-- Negative thus far -Monitor s/p COVID 19 with current Myopathy/debility -PT/OT RICHY -CPAP therapy Obesity Anemia -Monitor ONESIMO BAUMANN DO Jan 15, 2021 07:29
[2021-01-15] MEDS: polyethylene glycoL POWDER 17 GM (MIRALAX) PACK PO SCH ×2 (08:02→21:28)
[2021-01-15] MEDS: TAMSULOSIN 0.4 MG (FLOMAX) CAP PO SCH (08:14)
[2021-01-15] MEDS: ASCORBIC ACID (VIT C) 500 MG TABLET PO SCH ×2 (08:14→17:47)
[2021-01-15] MEDS: GABAPENTIN 100 MG (NEURONTIN) CAP PO SCH ×2 (08:14→21:24)
[2021-01-15] MEDS: DOCUSATE SODIUM 100 MG (COLACE) CAP PO SCH ×2 (08:14→21:28)
[2021-01-15] MEDS: PANTOPRAZOLE 40 MG (PROTONIX) TAB PO SCH ×2 (08:14→21:24)
[2021-01-15] MEDS: SENNA W/DOCUSATE (SENOKOT S) TABLET PO SCH ×2 (08:14→21:28)
[2021-01-15] MEDS: ALLOPURINOL 100 MG (ZYLOPRIM) TAB PO SCH (08:14)
[2021-01-15] MEDS: APIXABAN 5 MG (ELIQUIS) TABLET PO SCH ×2 (08:14→21:25)
[2021-01-15] MEDS: FINASTERIDE (PROSCAR) 5 MG TAB PO SCH (08:14)
[2021-01-15] MEDS: VITAMIN D3 25 MCG (1,000 UNITS) TABLET PO SCH (08:14)
[2021-01-15] MEDS: ANIDULAFUNGIN INJECTION 100 MG in NS (IVPB) 100 ML IV SCH (08:14)
[2021-01-15] MEDS: SALINE NASAL SPRAY (OCEAN) 45 ML BTL NS SCH ×3 (08:15→21:26)
[2021-01-15] MEDS: FLUTICASONE NASAL SPRAY (FLONASE) 16 GM BTL NS SCH (08:15)
--- NOTE | 2021-01-15 09:53 | Cardiology Progress Note ---
Subjective Date Seen by Provider: Jan 15, 2021 Time Seen by Provider: 08:00 Subjective/Events-last exam Denies any chest pain or dyspnea. Objective-Cardiology Exam Last Set of Vital Signs Vital Signs 01/15/21 01/15/21 09:00 12:00 Temp 36.4 Pulse 105 Resp 20 B/P (MAP) 110/60 (77) Pulse Ox 96 O2 Delivery Nasal Cannula O2 Flow Rate 5.00 Capillary Refill : I&O Intake and Output 01/15/21 00:00 Intake Total 1600 ml Output Total 1800 ml Balance -200 ml Intake Oral 1110 ml IV Total 490 ml Output Urine Total 1800 ml # Bowel Movements 1 General: Alert, Oriented X3, Cooperative HEENT: Atraumatic, PERRLA Neck: Supple, No JVD, No Thyromegaly Lungs: Clear to Auscultation, Normal Air Movement Heart: Normal S1, Normal S2, No Murmurs, Other (irregularly irregular) Abdomen: Normal Bowel Sounds, Soft, No Tenderness, No Hepatosplenomegaly, No Masses Extremities: No Clubbing, No Cyanosis Skin: No Rashes, No Significant Lesion Neuro: Normal Speech, Cranial Nerves 3-12 NL Psych/Mental Status: Mental Status NL, Mood NL Results Lab Laboratory Tests 01/15/21 05:47 A/P-Cardiology Admission Diagnosis Afib HTN HLP DM Assessment/Plan Atrial fibrillation with controlled ventricular rate, maintained on Eliquis, continue to monitor. Pneumonia, worsening, Dr. Zuñiga managing. Hypertension, better control at this time. 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 Dawkins Critical illness myopathy, COVID-19, continue PT/OT RICHY, treated with CPAP, managed by Dr Dawkins Peripheral edema- continue to diurese Patient was seen and evaluated with Rhona, examination performed, management plan was discussed, agree with the current scribed note, I made few changes to the note using Italic font Patient was seen at bedside sitting comfortably, no new complaint, feeling be tter. Possible discharge to correction tomorrow. RHONA MARTINEZ Jan 15, 2021 9:53 am JOSE MARIA QUEZADA MD Jan 15, 2021 2:49 pm
[2021-01-15] MEDS: ADVAIR HFA 115/21 MCG INHALER 8 GM IH SCH ×3 (10:48→20:07)
[2021-01-15] MEDS: UMECLIDINIUM BROMIDE (INCRUSE ELLIPTA) 7'S IH SCH ×2 (10:49→15:12)
--- NOTE | 2021-01-15 11:29 | Physical Therapy Daily Note ---
PT Daily Note-Current Subjective Pt. agrees to Rx, states he is discouraged and is not sure what will happen regarding his DC plans. Pt. states he is disappointed that he cant do more but asks to rest several times during Rx and ultimately to stop . PT OT co Rx complete secondary to poor activity tolerance etc. Pain Location: No Pain Reported Mental Status Patient Orientation: Normal For Age Attachments: Oxygen (4l) Transfers SCALE: Activities may be completed with or without assistive devices. 0-Ogdfvircbu-kqgxznb completes the activity by him/herself with no assistance from a helper. 5-Set-up or Clean-up Assistance-helper sets up or cleans up; patient completes activity. [place] assists only prior to or following the activity. 4-Supervision or Touching Assistance-helper provides verbal cues and/or touching/steadying and/or contact guard assistance as patient completes activity. Assistance may be provided throughout the activity or intermittently. 3-Partial/Moderate Assistance-helper does LESS THAN HALF the effort. [place] lifts, holds or supports trunk or limbs, but provides less than half the effort. 2-Substantial/Maximal Assistance-helper does MORE THAN HALF the effort. [place] lifts or holds trunk or limbs and provides more than half the effort. 1-Iodlbfvxs-ugfnqh does ALL the effort. Patient does none of the effort to complete the activity. Or, the assistance of 2 or more helpers is required for the patient to complete the activity. If activity was not attempted, code reason: 7-Patient Refused. 9-Not Applicable-not attempted and the patient did not perform the activity bef ore the current illness, exacerbation or injury. 10-Not Attempted due to Environmental Limitations-(lack of equipment, weather r estraints, etc.). 88-Not Attempted due to Medical Conditions or Safety Concerns. Sit to Stand (QC): 3 Chair/Vwp-oz-Ecznq Xfer(QC): 3 Toilet Transfer (QC): 3 pt. did multiple sit to stands at parallel bars some using rails to pull and some to push up from arms of w/c. all requiring min to mod assist. for SPTs in bathroom pt. used horizontal railing to pull and requested the BSC be over the toilet so he would have higher sitting surface. Pt. required max assist for clothing up down as well as cleaning after BM. Pt. needed much encouragement to complete the last TRF toilet to w/c feeling he was too tired and weak, this required mod to min assist of 2 Weight Bearing Full Weight Bearing Full Weight Bearing Gait Training Does the Patient Walk?: Yes Gait Assistive Device: Parallel Bars 7 ft x 2 w/c close behind, instruction for alignment , mod to min assist, slow, flexed at trunk, toe out Wheelchair Training Does the Pt Use a Wheelchair?: Yes Wheel 50 ft with 2 turns (QC): 4 Type of Wheelchair: Manual Exercises Seated Therapy Exercises: Ankle pumps, Sit to stand, Long arc quads, Hip flexion, Hip abd/add Seated Reps: 15 Treatments sit to stands at // bars x 4 min assist, rest breaks required. Assessment Current Status: Fair Progress fatigues, has SOB, requires instruction and assist of 2 skilled clinicians secondary to poor activity tolerance, SOB and weakness PT Short Term Goals Short Term Goals Time Frame: Dec 11, 2020 Roll Left & Right: 4 (met) Sit to lyin (met) Lying to sitting on side of be: 4 (met) Sit to stand: 3 Chair/wrt-mp-zsuye transfer: 3 Walk 10 feet: 3 Walk 50 feet with two turns: 3 PT Long-Term Goals Email Campaign Manager Goals PT Email Campaign Manager Goals Time Frame: Jan 01, 2021 Roll Left & Right (QC): 6 Sit to Lying (QC): 6 Lying-Sitting on Side/Bed(QC): 6 Sit to Stand (QC): 6 Chair/Znf-yd-Zwsxk Xfer(QC): 6 Toilet Transfer (QC): 6 Car Transfer (QC): 6 Does the Patient Walk: No and Walking Goal IS indicated Walk 10 feet (QC): 6 Walk 50ft with 2 Turns (QC): 6 Walk 150 ft (QC): 6 Walking 10ft on Uneven Surface: 4 1 Step (curb) (QC): 4 4 Steps (QC): 4 12 Steps (QC): 4 Picking up an Object (QC): 5 Does the Pt use WC or Scooter?: No Wheel 50 feet with 2 turns (QC: 9 Wheel 150 feet: 9 PT Plan Treatment/Plan Treatment Plan: Continue Plan of Care Treatment Plan: Bed Mobility, Education, Functional Activity Erick, Functional Strength, Group Therapy, Gait, Safety, Therapeutic Exercise, Transfers Treatment Duration: Jan 01, 2021 Frequency: At least 5 of 7 days/Wk (IRF) Estimated Hrs Per Day: Other (see notation) Patient and/or Family Agrees t: Yes Safety Risks/Education Patient Education: Gait Training, Transfer Techniques, Correct Positioning, W/C Management, Disease Process, Safety Issues Teaching Recipient: Patient Teaching Methods: Demonstration, Discussion Response to Teaching: Verbalize Understanding, Return Demonstration, Reinforcement Needed Time/GCodes Time In: 1030 Time Out: 1120 Total Billed Treatment Time: 50 Total Billed Treatment 1,GT15m,FA20m,EX15m SUSANNA CONNER QUALITY REVIEWER Jan 15, 2021 11:29
--- NOTE | 2021-01-15 11:56 | PM&R Progress Note ---
Subjective HPI/CC On Admission Date Seen by Provider: Jan 15, 2021 Time Seen by Provider: 11:00 Subjective/Events-last exam 01/15/21: Pt doing pretty well Last dose of iron infusion today Swingbed at [facility] requested Hgb 9.0 Overall feels pretty good but always has issues with his feet and breathing 01/14/21: Pt improved today Lasix IV given of 20 Mg and Pt doing much better Having some hallucinations at times Will start Biotene Mouth spray as needed Constantly talks about foot pain 01/13/21: Pt slept well Appetite ale Had a fall without injury yesterday when he slid out of his wheelchair 10 liters of oxygen last night but Dr. Zuñiga saw him and turned it down to 6 liters D-dimer is elevated but he is already on Eliquis [facility] swingbed where his PCP Dr. Rinaldi will likely be required. He is too sick to go to [facility], doesnt meet criteria for residential care hospital and not acute enough to go upstairs and too sick to go home. 01/12/21: Patient much improved Eating very well today BM+ Venofer iron infusions tolerated Improved strength Was able to stand today Hallucinations at night so will stop Remeron and start Trazodone Took CPAP off last night and maintained on O2 Son visited yesterday and stayed for a long time O2 5L/min 01/11/21: HR improved on Cardizem OOB and doing well Eraxis maintained Potassium and Mag will be replaced Improved status 01/10/21: Patient getting more complicated IV abx maintained No pain reported except foot pain Not eating well Patient declined Checked meds and labs refusing therapy most of the time Indocin restarted by Dr Rob 01/09/21: Patient doing about the same Dr Zuñiga evaluated him and resp status is stable Hgb 8.2 his baseline for past few weeks. Zosyn maintained Vanc DC due to MRSA swab negative Allopurinol started yesterday Dr Rob Feet are edematous and venous stasis noted so recommended KRIS's and ZULEIKA wraps 01/08/21: Patient definitely declined since admitted but remains stable just more complicated 2 units of blood has increased hgb to 9.1 which has helped alertness Hemoccult was negative sent to lab today PPI on board OAC on hold Indocin done Dr Zuñiga saw patient and ordered Nebs IV abx maintained Complains of foot pain but not many more options for gout and neuropathy and chronic foot pain he was taking Oxycodone prior to admit before arrival 01/07/21: Patient more drowsy today. Started septic w/u and lactic acid was elevated at 2.1 so started gentle IVF and consulted Dr Zuñiga and started on abx empirically for bilateral ATX vs infiltrate Agreeable for transfusion now so ordered 2 units and will give iron infusion tomorrow also Complex case overall OHA is held Hemoccult stools ordered 01/06/21: Hgb 7.4 and discussed placement of midline for transfusion of 1 unit and/or iron infusions and after a great deal of thought he declines both Patient doing well otherwise Fatigue about the same NHP Occult stool ordered 01/05/21: Complains about sleeping all the time Changed Gabapentin to BID instead of TID Large BM daily Mildly low BP noted Tremor reported to RN but not discussed with me 01/04/21: Sugars improved 113 this am Foot pain improved Indocin taper maintained 01/03/21: Uric acid ordered by Dr Rob Toe is better Decubitus ulcer is improved No pain otherwise Severe dyspnea when active but he seems to not be bothered about it 01/02/21: Left foot pain occurred last night Right great toe improved since Indocin BM+ NHP at DC 01/01/21: Pt was slightly hypotensive today but cardiology is managing Indocin is helping the gout in his foot Bowels are moving 3.5 liters maintained DC planned for 01/08/21 to NH 12/31/20: Dr. Rob diagnosed gout so Indocin was started Remains on 3.5 liters of O2 Scared to not use the sit to stand 12/30/20: Bowels moved yesterday Doing pretty well Right great toe pain so consulted Dr. Rob Uric acid will be added and X-ray of the right foot 12/29/20: Patient frustrated BM yesterday Sputum produced and sent down to lab? Sugar 196 No pain meds required today 12/28/20: Sofia on his buttock Coughed up some green sputum 3 times yesterday but lungs are clear BM large today Oxycodone for his left foot pain helped 2+ edema Sugar 167 He is very pessimistic about his overall progress which cannot be redirected 12/27/20: Transferring without the site to stand now Improved overall BM+ Alevan vs. butt paste on buttock He sits in chair all day long on computer 12/26/20: Insurance declined skilled for now Standing and actually progressing well 2L/min and doing well DC scheduled APAP TID 12/25/20: Awaiting [facility] placement Actually working pretty well with therapy Denies any significant new pain Blurry vision still continues Didnt sleep real well last night 12/24/20: Eyes were better but the more he works on the computer the blurry issues return DC is on hold due to NH processes 12/23/20: Pt doing pretty well Buttock decubitus ulcer needs further treatment Discharge planned for tomorrow Hemaglobin 9.3 Midline will be discontinued at his request 12/22/20: Home O2 evaluation tomorrow for DC Wednesday DM education will be provided DC planned for ID 12/21/20: Doing well Slept well BM today Edema improved on KRIS's Decubitus ulcers worsened due to sitting in chair all day long IS use increased 12/20/20: Now has daily complaints about minor things since he was notified last week he would need a ID Nurse broke his grabber so will obtain replacement for him Butt paste placed on buttocks Stage 2 No other issues 12/19/20: No major issues Bowels are moving halfway placement on Wednesday12/18/20: Discharge Wednesday to the [facility] Family training did not go well Son was there but did not engage Insists on going home but that would not be a possibility Placing Alevin on buttock 12/17/20: Family training today at 10:00 Still has a stage 2 buttock decubitus ulcer Overall feels like he is doing much better Son at bedside when I rounded later today and he was evaluating his progress 12/16/20: Pt doing pretty well Bowels moved today Left midline is functioning Blood sugar 147 Stage 2 decubitus ulcer on the buttock Working really hard to stand 12/15/20: Overall doing well No issues BM+ No falls 12/14/20: Doing well BM+ Dyspnea still continues No pain 12/13/20: Patient more alert today and energized No pain reported Oxycodone helps the foot pain Participating with therapy 12/12/20: Pt doing a lot better Having a lot of pain, takes Oxycodone for his foot and leg pain Bowels are moving Sleeping better Pt very well could require a [facility] since he lives alone and is just not progressing well 12/11/20: No major issues Pretty much has plateaued and not made much progress with ambulation Epistaxis of the left nostril Nasal sprays will be continued Re-check and check with insurance coverage but he very well may need to be in a [facility] 12/10/20: Pt doing pretty well Slept on and off last night Remains on 4 liters of O2 Swelling in his feel is pretty minimal Did not use his BiPAP last night and that likely is the cause of not sleeping well 12/09/20: Pt slept pretty well Bowels are moving PLTs are 97, 000 Normal WBC down from when he first arrived Denies any significant issues Trying to get strong enough to walk 12/08/20: Slept well last night Remeron and Melatonin has helped him a lot Sinus tachy last night BM 12/06/20 so laxatives given No other issues 12/07/20: Slept better Yonker provided for phlem HR 60 Appreciate Cardiology 4L/min O2 BM 12/06/20 12/06/20: HR 122 Cardiology consulted Sugar 54 so decreasing insulin BM++ No pain reported No sleeping well so added hypnotics of Melatonin and Remeron 12/05/20: Patient doing well Worn out from fatigue Sugars are ok No pain reported Tachycardic so consulting Dr Carranza Midline was accidently pulled out so need a new one placed Checked meds and labs Review of Systems General: Fatigue Pulmonary: Dyspnea Musculoskeletal: foot pain Neurological: Weakness Objective Exam Vital Signs Vital Signs Date Time Temp Pulse Resp B/P (MAP) Pulse Ox O2 Delivery O2 Flow Rate FiO2 01/16/21 02:06 94 NIV CPAP 5.00 01/16/21 00:30 36.3 90 20 117/55 (75) Capillary Refill : General Appearance: No Apparent Distress, WD/WN, Anxious, Chronically ill, Obese HEENT: PERRL/EOMI, Normal ENT Inspection, Pharynx Normal Neck: Full Range of Motion, Normal Inspection, Non Tender, Supple, Carotid Bruit Respiratory: Chest Non Tender, Lungs Clear, No Accessory Muscle Use, No Respiratory Distress, Decreased Breath Sounds Cardiovascular: Regular Rate, Rhythm, No Gallop, No JVD, No Murmur, Normal Peripheral Pulses Gastrointestinal: Normal Bowel Sounds, No Organomegaly, No Pulsatile Mass, Non Tender, Soft Back: Normal Inspection, No CVA Tenderness, No Vertebral Tenderness Extremity: Normal Capillary Refill, Normal Inspection, Normal Range of Motion, Non Tender, No Calf Tenderness, Pedal Edema Neurologic/Psychiatric: Alert, Oriented x3, No Motor/Sensory Deficits, legal summer intern II- XII Norm as Tested, Depressed Affect, Motor Weakness Skin: Normal Color, Warm/Dry Lymphatic: No Adenopathy Results/Procedures Lab Laboratory Tests 01/15/21 05:47 Patient resulted labs reviewed. FIM Transfers Therapy Code Descriptions/Definitions Functional [place] Measure: 0=Not Assessed/NA 4=Minimal Assistance 1=Total Assistance 5=Supervision or Setup 2=Maximal Assistance 6=Modified [place] 3=Moderate Assistance 7=Complete IndependenceSCALE: Activities may be completed with or without assistive devices. 9-Fastxpuvmx-bpowctl completes the activity by him/herself with no assistance from a helper. 5-Set-up or Clean-up Assistance-helper sets up or cleans up; patient completes activity. [place] assists only prior to or following the activity. 4-Supervision or Touching Assistance-helper provides verbal cues and/or touching/steadying and/or contact guard assistance as patient completes activity. Assistance may be provided throughout the activity or intermittently. 3-Partial/Moderate Assistance-helper does LESS THAN HALF the effort. [place] lifts, holds or supports trunk or limbs, but provides less than half the effort. 2-Substantial/Maximal Assistance-helper does MORE THAN HALF the effort. [place] lifts or holds trunk or limbs and provides more than half the effort. 5-Tijrgrwcj-ctstog does ALL the effort. Patient does none of the effort to c omplete the activity. Or, the assistance of 2 or more helpers is required for the patient to complete the activity. If activity was not attempted, code reason: 7-Patient Refused. 9-Not Applicable-not attempted and the patient did not perform the activity before the current illness, exacerbation or injury. 10-Not Attempted due to Environmental Limitations-(lack of equipment, weather restraints, etc.). 88-Not Attempted due to Medical Conditions or Safety Concerns. Roll Left to Right (QC): 6 Sit to Lying (QC): 2 Sit to Stand (QC): 3 Chair/Nrn-sz-Podss Xfer(QC): 3 Car Transfer (QC): 88 Gait Training Does the Patient Walk?: Yes Walk 150 ft (QC): 88 Walking 10ft/uneven surface-QC: 88 Gait Persons Needed: 1 Gait Assistive Device: Parallel Bars Wheelchair Training Does the Pt Use a Wheelchair?: Yes Wheel 50 ft with 2 turns (QC): 4 Type of Wheelchair: Manual Stair Training #of Steps: 1 1 Step (curb) (QC): 88 4 Steps (QC): 88 12 Steps (QC): 88 Stairs: Pattern: Step to Balance Picking up an Object (QC): 88 ADL-Treatment Eating (QC): 6 Oral Hygiene (QC): 5 Bathing Location: L Arm, R Arm, L Upper Leg, R Upper Leg, Chest, Abdomen, Perineal Area Shower/Bathe Self (QC): 3 (Mod assist ) Upper Body Dressing (QC): 3 (Min assist) Lower Body Dressing (QC): 2 On/Off Footwear (QC): 2 Toileting Hygiene (QC): 4 Toilet Transfer (QC): 7 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 Obesity DM Neuropathy Anemia 7.4 on 01/06/21 but declined transfusion and iron infusions until changing mind s/p 2 units blood 01/07/21 O2 dependence Right great toe pain consulted Dr Rob 12/30/20 dx with gout and placed on Indocin Early sepsis 01/07/21 due to PNA placed on abx and IVF Plan: IRF protocol Monitor O2 O2 supplement 12/05/20: O2 maintained IRF protocol Cardiology consultation appreciated Midline replacement 12/06/20: Cardiology consult appreciated Decrease insulin Midline Monitor closely 12/07/20: Monitor closely O2 wean Increase acitivity Maintain Remeron and Melatonin 12/08/20: Monitor closely Check labs in am Monitor tachycardia Remeron and Melatonin 12/09/20: Labs normal Improved strength Weaning O2 Monitor insomnia Increase insulin 12/10/20: Monitor O2 Increase strength Severe myopathy of legs 12/11/20: Difficult to progress Continue therapy May need NHP 12/12/20: Pain control with Oxycodone Monitor bowels Monitor O2 12/13/20: Monitor pain Wean O2 CPAP mask seems to be working better 12/14/20: Improved status Stood up today with help O2 12/15/20: Wean O2 Monitor ambulation CPAP at night 12/16/20: Monitor progress Decubitus ulcer management Monitor BP 12/17/20: Family education/training today Monitor O2 CPAP with O2 12/18/20: Monitor O2 NH Wednesday Continue to work on stamina 12/19/20: Monitor O2 CPAP 12/20/20: Decubitus ulcer management Monitor O2 Replace grabber 12/21/20: Monitor O2 KRIS CPAP 12/22/20: DC Wednesday to ID Home O2 evaluation 12/23/20: DC midline DC tomorrow to ID Needs eye exam soon for blurry vision 12/24/20: DC on hold Monitor O2 12/25/20: Continue therapy Making significant progress 12/26/20: Monitor progress Standing now May be able to DC home? 12/27/20: Much improved status Improved standing No pain reported 12/28/20: Walked a bit but he gets discouraged so quickly Pain controlled in his foot Monitor cough 12/29/20: Started scheduled insulin AC Adjusted Levemir to 10 units HS since sugars are low in am and maintained Levemir 20 units at bfast Check labs in am 12/30/20: Right great toe pain eval by Dr Rob Check uric acid and xray Monitor sugar 12/31/20: Indocin for gout Monitor closely Pain control 01/01/21: Gout treatment Monitor closely Pain control IRF protocol 01/02/21: O2 Gout treatment Monitor dyspnea 01/03/21: Gout treatment Monitor O2 and dyspnea 01/04/21: O2 wean Monitor foot pain Indocin taper 01/05/21: Monitor low BP Change Gabapentin to BID from TID 01/06/21: Hgb 7.4 but patient declines transfusion and iron infusions Monitor O2 01/07/21: Blood transfusions [address] Zuñiga consultation Cardiology appreciated Hold OAC 01/08/21: HLIVF IV abx Appreciate Dr Zuñiga Monitor hgb Hold OAC 01/09/21: Hgb stable Restarted OAC Allopurinol started yesterday Wraps to legs Abx 01/10/21: Indocin for the gout IV abx Patient declined Dispo pending May become a hospice candidate 01/11/21: Actually improved Diet improved Replace potassium Eraxis maintained 01/12/21: Improved overall today and was able to stand Eraxis Abx completed Indocin helps a lot 01/13/21: Appreciate Dr Zuñiga help Decrease O2 01/14/21: Monitor closely Swing bed eval for [place] hospital close to home and PCP 01/15/21: Monitor O2 Continue PT OT Indocin (1) COVID-19 (2) RICHY on CPAP (3) Obesity (4) Diabetes (5) Hypertension (6) Edema (7) Neuropathy (8) Anemia (9) Advanced age (10) Gout DEANNA BOO DO Jan 15, 2021 11:55
--- NOTE | 2021-01-15 13:17 | Occupational Ther Daily Note ---
OT Current Status-Daily Note Subjective No pain reported. Pt. does report fatigue while standing. Mental Status/Objective Patient Orientation: Person, Place, Time, Situation Attachments: Oxygen ADL-Treatment Therapy Code Descriptions/Definitions Functional [place] Measure: 0=Not Assessed/NA 4=Minimal Assistance 1=Total Assistance 5=Supervision or Setup 2=Maximal Assistance 6=Modified [place] 3=Moderate Assistance 7=Complete IndependenceSCALE: Activities may be completed with or without assistive devices. 4-Yuabshmzlh-cdwniox completes the activity by him/herself with no assistance from a helper. 5-Set-up or Clean-up Assistance-helper sets up or cleans up; patient completes activity. Davin assists only prior to or following the activity. 4-Supervision or Touching Assistance-helper provides verbal cues and/or touching/steadying and/or contact guard assistance as patient completes activity. Assistance may be provided throughout the activity or intermittently. 3-Partial/Moderate Assistance-helper does LESS THAN HALF the effort. Davin lifts, holds or supports trunk or limbs, but provides less than half the effort. 2-Substantial/Maximal Assistance-helper does MORE THAN HALF the effort. Davin lifts or holds trunk or limbs and provides more than half the effort. 5-Wodxckphp-bgwzig does ALL the effort. Patient does none of the effort to complete the activity. Or, the assistance of 2 or more helpers is required for the patient to complete the activity. If activity was not attempted, code reason: 7-Patient Refused. 9-Not Applicable-not attempted and the patient did not perform the activity before the current illness, exacerbation or injury. 10-Not Attempted due to Environmental Limitations-(lack of equipment, weather restraints, etc.). 88-Not Attempted due to Medical Conditions or Safety Concerns. Eating (QC): 6 Oral Hygiene (QC): 7 Shower/Bathe Self (QC): 2 (Per pt.- He was incontinent last night in bed. Nursing gave him a sponge bath at bed level.) Upper Body Dressing (QC): 5 Lower Body Dressing (QC): 2 (Per pt.) Toileting Hygiene (QC): 1 (Pt. requires max assist in stance while another person cleanses rear yo area after BM.) Toilet Transfer (QC): 2 Other Treatment Pt. seen for partial co-treatment with PT due to low endurance, low activity lev el, and need of skilled assistance x 2 for ADL and mobility needs. PT facilitated LE exercise and taking steps in bars while OT facilitated weight shifts and ADL skills. Pt. seen first by OT. Transferred from elevated bed with walker and max assist to wheelchair. Pt. self propels to therapy gym at slow steady pace. Stands 3 times at bar, with max assist each time and cues to position self correctly before stance. Pt. requires rest breaks in between each stand. Pt. stands x 2 in parallel bars with PT assistance, and is able to take steps with cues for weight shift and foot advancement. Please see PT note for distance. Noted pt. became slightly incontinent of bowel. Requests to use bathroom. Transferred with max assist to toilet. After having BM, pt. stood with max assistance while another cleansed rear yo area. Pt. transferred back to wheelchair. All needs met up in room. Education OT Patient Education: Correct positioning, Modified ADL techniques, Progress toward Goal/Update tx plan, Purpose of tx/functional activities, Reviewed precautions, Rehab process, Transfer techniques Teaching Recipient: Patient Teaching Methods: Demonstration, Discussion Response to Teaching: Verbalize Understanding, Return Demonstration OT Short Term Goals Short Term Goals Time Frame: Dec 11, 2020 Eatin Oral hygiene: 88 Toileting hygiene: 2 Shower/bathe self: 3 Upper body dressin Lower body dressin Putting on/taking off footwear: 6 OT [employer] Goals Jail Goals Time Frame: Dec 25, 2020 Eating (QC): 6 Oral Hygiene (QC): 6 Toileting Hygiene (QC): 5 Shower/Bathe Self (QC): 5 Upper Body Dressing (QC): 6 Lower Body Dressing (QC): 4 On/Off Footwear (QC): 6 Additional Goals: 1-Demonstrate ADL Tasks, 2-Verbalize Understanding, 3- ImproveStrength/Erick 1=Demonstrate adherence to instructed precautions during ADL tasks. 2=Patient will verbalize/demonstrate understanding of assistive devices/modifications for ADL. 3=Patient will improve strength/tolerance for activity to enable patient to perform ADL's. OT Education/Plan Problem List/Assessment Assessment: Decreased Activ Tolerance, Dependent Transfers, Impaired Funct Balance, Impaired I ADL's, Impaired Self-Care Skills, Restricted Funct UE ROM Discharge Recommendations Plan/Recommendations: Continue POC Therapy Discharge Recommendati: 24 Hour Supervision Treatment Plan/Plan of Care Treatment,Training & Education: Yes Patient would benefit from OT for education, treatment and training to promote independence in ADL's, mobility, safety and/or upper extremity function for ADL's. Plan of Care: ADL Retraining, Caregiver Training, Functional Mobility, Group Ex ercise/Act as Ind, UE Funct Exercise/Act Treatment Duration: Dec 25, 2020 Frequency: Modified Program (IRF) Estimated Hrs Per Day: 1.5 hours per day Agreement: Yes Rehab Potential: Fair Time/GCodes Start Time: 10:00 Stop Time: 11:15 Total Time Billed (hr/min): 75 Billed Treatment Time 8388-0257- 1, FA x 30minutes [id number] FA x 30minutes, ADL x [id number] with PT. Please see above note for designated roles. CAMILA SINCLAIR OT Jan 15, 2021 13:17
[2021-01-15] MEDS: traZODone 50 MG (DESYREL) TAB PO SCH (21:24)
[2021-01-15] MEDS: MELATONIN 3 MG TABLET PO SCH (21:25)
[2021-01-16 00:30] VITALS: BP 117/55
[2021-01-16] MEDS: RT-ALBUTEROL/IPRATROPIUM 3 ML (DUONEB) VIAL IH SCH ×2 (02:05→07:05)
[2021-01-16 04:00] VITALS: BP 132/72
[2021-01-16] MEDS: inSUlin ASPART (NovoLOG) 1 UNIT/0.01 ML (CHARGE PER UNIT) SC SCH ×2 (05:33→11:33)
[2021-01-16] MEDS: ADVAIR HFA 115/21 MCG INHALER 8 GM IH SCH (07:06)
[2021-01-16] MEDS: UMECLIDINIUM BROMIDE (INCRUSE ELLIPTA) 7'S IH SCH (07:06)
[2021-01-16] MEDS: FINASTERIDE (PROSCAR) 5 MG TAB PO SCH (07:55)
[2021-01-16] MEDS: VITAMIN D3 25 MCG (1,000 UNITS) TABLET PO SCH (07:55)
[2021-01-16] MEDS: SALINE NASAL SPRAY (OCEAN) 45 ML BTL NS SCH ×2 (07:56→13:05)
[2021-01-16] MEDS: ALLOPURINOL 100 MG (ZYLOPRIM) TAB PO SCH (07:56)
[2021-01-16] MEDS: GABAPENTIN 100 MG (NEURONTIN) CAP PO SCH (07:56)
[2021-01-16] MEDS: SENNA W/DOCUSATE (SENOKOT S) TABLET PO SCH (07:56)
[2021-01-16] MEDS: DOCUSATE SODIUM 100 MG (COLACE) CAP PO SCH (07:56)
[2021-01-16] MEDS: ASCORBIC ACID (VIT C) 500 MG TABLET PO SCH (07:56)
[2021-01-16] MEDS: APIXABAN 5 MG (ELIQUIS) TABLET PO SCH (07:56)
[2021-01-16] MEDS: PANTOPRAZOLE 40 MG (PROTONIX) TAB PO SCH (07:56)
[2021-01-16] MEDS: TAMSULOSIN 0.4 MG (FLOMAX) CAP PO SCH (07:56)
[2021-01-16] MEDS: IRON SUCROSE 200 MG/10 ML (VENOFER) VIAL IV SCH (07:57)
[2021-01-16] MEDS: FLUTICASONE NASAL SPRAY (FLONASE) 16 GM BTL NS SCH (07:57)
--- NOTE | 2021-01-16 08:00 | Cardiology Progress Note ---
Subjective Date Seen by Provider: Jan 16, 2021 Time Seen by Provider: 07:59 Subjective/Events-last exam No new complaints, denies any chest pain or dyspnea. Objective-Cardiology Exam Last Set of Vital Signs Vital Signs 01/16/21 01/16/21 01/16/21 04:00 07:06 09:00 Temp 36.0 Pulse 81 Resp 21 B/P (MAP) 132/72 (92) Pulse Ox 92 O2 Delivery Nasal Cannula O2 Flow Rate 5.00 Capillary Refill : I&O Intake and Output 01/16/21 00:00 Intake Total 1550 ml Output Total 1550 ml Balance 0 ml Intake Oral 1180 ml IV Total 370 ml Output Urine Total 1550 ml # Bowel Movements 1 General: Alert, Oriented X3, Cooperative HEENT: Atraumatic, PERRLA Neck: Supple, No JVD, No Thyromegaly Lungs: Clear to Auscultation, Normal Air Movement Heart: Normal S1, Normal S2, No Murmurs, Other (irregularly irregular) Abdomen: Normal Bowel Sounds, Soft, No Tenderness, No Hepatosplenomegaly, No Masses Extremities: No Clubbing, No Cyanosis Skin: No Rashes, No Significant Lesion Neuro: Normal Speech, Cranial Nerves 3-12 NL Psych/Mental Status: Mental Status NL, Mood NL A/P-Cardiology Admission Diagnosis Afib HTN HLP DM Assessment/Plan Atrial fibrillation with controlled ventricular rate, maintained on Eliquis, continue to monitor. Pneumonia, worsening, Dr. Zuñiga managing. Hypertension, better control at this time. 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 Dawkins Critical illness myopathy, COVID-19, continue PT/OT RICHY, treated with CPAP, managed by Dr Dawkins Peripheral edema- continue to diurese Patient was seen and evaluated with Rhona, examination performed, management plan was discussed, agree with the current scribed note, I made few changes to the note using Italic font Patient was seen at bedside sitting comfortably, breathing better Possible transfer to half-way today Heart rate is well-controlled, blood pressure is controlled, continue to monitor RHONA MARTINEZ Jan 16, 2021 08:00 JOSE MARIA QUEZADA MD Jan 16, 2021 09:12
[2021-01-16] MEDS ORDERED: fluCOnazole (DIFLUCAN) 100 MG TAB PO SCH (09:00)
[2021-01-16] MEDS: polyethylene glycoL POWDER 17 GM (MIRALAX) PACK PO SCH (09:10)
[2021-01-16 09:21] VITALS: BP 114/75
[2021-01-16] MEDS ORDERED: SALI45SP MM (11:13)
[2021-01-16] MEDS ORDERED: TRZ50T PO (11:13)
[2021-01-16] MEDS ORDERED: PANT40TA52 PO (11:13)
[2021-01-16] MEDS ORDERED: ALLO100T PO (11:13)
[2021-01-16] MEDS ORDERED: FLUC100T6 PO (11:13)
[2021-01-16] MEDS ORDERED: GABA-486 PO (11:13)
[2021-01-16] MEDS ORDERED: DILT240C91 PO (11:13)
[2021-01-16] MEDS ORDERED: INSU100V16 SQ (11:13)
--- NOTE | 2021-01-16 11:16 | Discharge Inst-Skilled Nursing ---
Discharge Inst-Skilled NF Reconcile Patient Problems Problems Reviewed?: Yes Patient Instructions Patient Problems: s/p COVID PNA Hypoxia RICHY on CPAP Anemia sp transfusions and iron infusions Gout with chronic foot pain DM new onset Goal: [place] Consult/Follow Up/Orders Follow Up Appt.: PCP Dr Rinaldi Skilled NF Admit to: Certification (SNF) I certify that SNF services are required to be given on an inpatient basis because of the above named patient's need for residential care on a continuing basis for the conditions(s) for which he/she was receiving inpatient hospital services prior to his/her transfer to the SNF. [facility] Facility Order: Nursing Services, [facility]-Evaluate & Treat, Physical Therapy-Evaluate & Treat Oxygen Delivery Method: Nasal Cannula Discharge Diet: ADA Diet Daily Activity as Tolerated: Yes Resuscitation Status: Full Code New & Resume Previous Orders New Medications: Insulin Aspart (Novolog) 100 Unit/1 Ml Susp 2 UNIT SQ AC for 30 Days, EACH Allopurinol (Allopurinol) 100 Mg Tablet 100 MG PO DAILY for 30 Days, TAB Cholecalciferol (Vitamin D3) (Vitamin D3) 25 Mcg Tablet 25 MCG PO DAILY for 30 Days, TAB Diltiazem HCl (Diltiazem 24Hr ER) 240 Mg Cap.er.24h 240 MG PO DAILY for 30 Days, CAP Fluconazole (Fluconazole) 100 Mg Tablet 100 MG PO DAILY for 3 Days, TAB Gabapentin (Gabapentin) 100 Mg Capsule 100 MG PO BID for 30 Days, CAP Melatonin (Melatonin) 3 Mg Tablet 6 MG PO HS for 30 Days, TAB Oxycodone Hcl (Oxyir Tablet) 5 Mg Tab 5 MG PO HS, #30 TAB Oxycodone Hcl (Oxyir Tablet) 5 Mg Tab 5 MG PO Q8H PRN for PAIN-SEVERE (8-10), #15 TAB Pantoprazole Sodium (Pantoprazole Sodium) 40 Mg Tablet.dr 40 MG PO BID for 30 Days, TAB Saliva Stimulant Agents Comb.3 (Biotene Moisturizing Mouth) 1 Each [place] 0 EACH MM QID PRN for DRY MOUTH for 30 Days, SPRAY Trazodone HCl (Trazodone HCl) 50 Mg Tablet 50 MG PO HS for 30 Days, TAB Zinc Oxide (Boudreauxs) 28 Gm Oint 0 GM TOP NEEDED PRN for DIAPER CHANGE for 30 Days, TUBE Continued Medications: Acetaminophen (Tylenol Arthritis) 650 Mg Tablet.er 650 MG PO Q6H PRN for PAIN-MILD (1-4) OR TEMPATURE, TAB Ascorbic Acid (Vitamin C) 500 Mg Capsule 1000 MG PO BID, CAP TAKES 2 (500MG) CAPS Cyanocobalamin (Vitamin B-12) (Vitamin B-12) 250 Mcg Tablet 250 MCG PO DAILY, TAB Finasteride (Finasteride) 5 Mg Tablet 5 MG PO DAILY, TAB Fluticasone Propionate (Flonase Allergy Relief) 9.9 Ml [place].susp 1 SPRAY NS DAILY, EACH Fluticasone/Umeclidin/Vilanter (Trelegy Ellipta 100-62.5-25) 1 Each Blst.w.dev 1 EACH IH DAILY Ipratropium/Albuterol Sulfate (Iprat-Albut 0.5-3(2.5) mg/3 ml) 3 Ml Ampul.neb 3 ML IH Q6H PRN for SHORTNESS OF BREATH, EACH Simvastatin (Simvastatin) 40 Mg Tablet 40 MG PO HS, TAB Tamsulosin HCl (Flomax) 0.4 Mg Cap 0.4 MG PO DAILY, CAP Discontinued Medications: Apixaban (Eliquis) 2.5 Mg Tablet 2.5 MG PO BID, TAB Gabapentin (Neurontin) 300 Mg Capsule 300 MG PO HS, CAP Omeprazole (Omeprazole) 20 Mg Tablet.dr 20 MG PO DAILY, TAB Triamterene/Hydrochlorothiazid (Triamterene-Hctz 37.5-25 mg Tb) 1 Each Tablet 1 EACH PO DAILY, TAB Zinc (Zinc) 50 Mg Tablet 50 MG PO DAILY, TAB Gracie Dawkins Jan 16, 2021 11:15 GRACIE DAWKINS DO Jan 16, 2021 11:16
--- NOTE | 2021-01-16 11:19 | Discharge Summary ---
Diagnosis/Chief Complaint Date of Admission Dec 04, 2020 at 15:15 Date of Discharge Discharge Date: Jan 16, 2021 Discharge Diagnosis Assessment: 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 RICHY on CPAP Obesity DM Neuropathy Anemia 7.4 on 01/06/21 but declined transfusion and iron infusions until changing mind s/p 2 units blood 01/07/21 O2 dependence Right great toe pain consulted Dr Rob 12/30/20 dx with gout and placed on Indocin Early sepsis 01/07/21 due to PNA placed on abx and IVF Plan: IRF protocol Monitor O2 O2 supplement 12/05/20: O2 maintained IRF protocol Cardiology consultation appreciated Midline replacement 12/06/20: Cardiology consult appreciated Decrease insulin Midline Monitor closely 12/07/20: Monitor closely O2 wean Increase acitivity Maintain Remeron and Melatonin 12/08/20: Monitor closely Check labs in am Monitor tachycardia Remeron and Melatonin 12/09/20: Labs normal Improved strength Weaning O2 Monitor insomnia Increase insulin 12/10/20: Monitor O2 Increase strength Severe myopathy of legs 12/11/20: Difficult to progress Continue therapy May need NHP 12/12/20: Pain control with Oxycodone Monitor bowels Monitor O2 12/13/20: Monitor pain Wean O2 CPAP mask seems to be working better 12/14/20: Improved status Stood up today with help O2 12/15/20: Wean O2 Monitor ambulation CPAP at night 12/16/20: Monitor progress Decubitus ulcer management Monitor BP 12/17/20: Family education/training today Monitor O2 CPAP with O2 12/18/20: Monitor O2 NH Wednesday Continue to work on stamina 12/19/20: Monitor O2 CPAP 12/20/20: Decubitus ulcer management Monitor O2 Replace grabber 12/21/20: Monitor O2 KRIS CPAP 12/22/20: DC Wednesday to [place] Home O2 evaluation 12/23/20: DC midline DC tomorrow to [place] Needs eye exam soon for blurry vision 12/24/20: DC on hold Monitor O2 12/25/20: Continue therapy Making significant progress 12/26/20: Monitor progress Standing now May be able to DC home? 12/27/20: Much improved status Improved standing No pain reported 12/28/20: Walked a bit but he gets discouraged so quickly Pain controlled in his foot Monitor cough 12/29/20: Started scheduled insulin AC Adjusted Levemir to 10 units HS since sugars are low in am and maintained Levemir 20 units at bfast Check labs in am 12/30/20: Right great toe pain eval by Dr Rob Check uric acid and xray Monitor sugar 12/31/20: Indocin for gout Monitor closely Pain control 01/01/21: Gout treatment Monitor closely Pain control IRF protocol 01/02/21: O2 Gout treatment Monitor dyspnea 01/03/21: Gout treatment Monitor O2 and dyspnea 01/04/21: O2 wean Monitor foot pain Indocin taper 01/05/21: Monitor low BP Change Gabapentin to BID from TID 01/06/21: Hgb 7.4 but patient declines transfusion and iron infusions Monitor O2 01/07/21: Blood transfusions [address] Zuñiga consultation Cardiology appreciated Hold OAC 01/08/21: HLIVF IV abx Appreciate Dr Zuñiga Monitor hgb Hold OAC 01/09/21: Hgb stable Restarted OAC Allopurinol started yesterday Wraps to legs Abx 01/10/21: Indocin for the gout IV abx Patient declined Dispo pending May become a hospice candidate 01/11/21: Actually improved Diet improved Replace potassium Eraxis maintained 01/12/21: Improved overall today and was able to stand Eraxis Abx completed Indocin helps a lot 01/13/21: Appreciate Dr Zuñiga help Decrease O2 01/14/21: Monitor closely Swing bed eval for DC hospital close to home and PCP 01/15/21: Monitor O2 Continue PT OT Indocin dc (1) COVID-19 (2) RICHY on CPAP (3) Obesity (4) Diabetes (5) Hypertension (6) Edema (7) Neuropathy (8) Anemia (9) Advanced age (10) Gout Discharge Summary Discharge Physical Examination Allergies: Coded Allergies: No Known Allergies (Verified Allergy, Unknown, 12/30/20) Vitals & I&Os Vital Signs Date Time Temp Pulse Resp B/P (MAP) Pulse Ox O2 Delivery O2 Flow Rate FiO2 01/16/21 13:00 37.0 89 20 114/75 95 Nasal Cannula 5.00 General Appearance: Alert, Oriented X3, Cooperative Respiratory: Clear to Auscultation Cardiovascular: Regular Rate Psych/Mental Status: Mental Status NL Hospital Course Was the Problem List Reviewed?: Yes Lengthy course after admitted from COVID 19 PNA critical illness. Patient had a very complex IRF course and every day note and plan copied to this note for review. Severe lung disease from RICHY and COPD baseline s/p COVID was managed with O2 and CPAP and patient did have PNA during visit prompting consult with Dr Zuñiga. Gout dx by Dr Rob responding to Indocin and Allopurinol. Patient had very slow course and only walked a few feet during his entire stay due to gout foot pain and severe lung dysfunction and overall debility. [facility] bed accepted the patient and labs were stable after transfusion of 2 units of blood and holding OAC and ASA and completing iron infusions of Venofer 1000mg total. Patient was stable at DC but prognosis guarded. Labs (last 24 hrs) Laboratory Tests 12/04/20 20:46: Glucometer 227H 12/05/20 05:09: Glucometer 111H 12/05/20 06:50: White Blood Count 21.5H, Red Blood Count 3.98L, Hemoglobin 11.7L, Hematocrit 35L , Mean Corpuscular Volume 88, Mean Corpuscular Hemoglobin 29, Mean Corpuscular Hemoglobin Concent 34, Red Cell Distribution Width 18.8H, Platelet Count 174, Mean Platelet Volume 9.7, Immature Granulocyte % (Auto) 3, Neutrophils (%) (Auto) 86H, Lymphocytes (%) (Auto) 5L, Monocytes (%) (Auto) 6, Eosinophils (%) (Auto) 0, Basophils (%) (Auto) 0, Neutrophils # (Auto) 18.5H, Lymphocytes # (Auto) 1.0, Monocytes # (Auto) 1.2H, Eosinophils # (Auto) 0.0, Basophils # (Auto) 0.0, Immature Granulocyte # (Auto) 0.7H, Neutrophils % (Manual) 90, Lymphocytes % (Manual) 4, Monocytes % (Manual) 6, Eosinophils % (Manual) 0, Basophils % (Manual) 0, Band Neutrophils 0, Polychromasia SLIGHT, Anisocytosis MODERATE, Sodium Level 133L, Potassium Level 4.3, Chloride Level 98, Carbon Dioxide Level 25, Anion Gap 10, Blood Urea Nitrogen 28H, Creatinine 0.79, Estimat Glomerular Filtration Rate > 60, BUN/Creatinine Ratio 35, Glucose Level 108H, Calcium Level 9.0, Corrected Calcium 9.6, Total Bilirubin 0.8, Aspartate Amino Transf (AST/SGOT) 27, Alanine Aminotransferase (ALT/SGPT) 65H, Alkaline Phosphatase 85, Total Protein 5.5L, Albumin 3.2, Procalcitonin 0.10H 12/05/20 10:48: Glucometer 154H 12/05/20 16:45: Glucometer 327H 12/05/20 20:51: Glucometer 250H 12/06/20 06:27: Glucometer 54*L 12/06/20 10:54: Glucometer 246H 12/06/20 16:12: Glucometer 276H 12/06/20 20:06: Glucometer 296H 12/07/20 06:25: Glucometer 153H 12/07/20 10:40: Glucometer 205H 12/07/20 15:36: Glucometer 331H 12/07/20 20:26: Glucometer 323H 12/08/20 05:25: Glucometer 174H 12/08/20 10:38: Glucometer 225H 12/08/20 16:16: Glucometer 240H 12/08/20 20:06: Glucometer 295H 12/09/20 04:30: White Blood Count 8.4, Red Blood Count 3.33L, Hemoglobin 9.5L, Hematocrit 30L, Mean Corpuscular Volume 90, Mean Corpuscular Hemoglobin 29, Mean Corpuscular Hemoglobin Concent 32, Red Cell Distribution Width 19.7H, Platelet Count 97L, Mean Platelet Volume 9.4, Immature Granulocyte % (Auto) 2, Neutrophils (%) (Auto) 84H, Lymphocytes (%) (Auto) 7L, Monocytes (%) (Auto) 7, Eosinophils (%) (Auto) 0, Basophils (%) (Auto) 0, Neutrophils # (Auto) 7.1, Lymphocytes # (Auto) 0.6L, Monocytes # (Auto) 0.6, Eosinophils # (Auto) 0.0, Basophils # (Auto) 0.0, Immature Granulocyte # (Auto) 0.2H, Sodium Level 141, Potassium Level 4.6, Chloride Level 102, Carbon Dioxide Level 30, Anion Gap 9, Blood Urea Nitrogen 22H, Creatinine 0.81, Estimat Glomerular Filtration Rate > 60, BUN/Creatinine Ratio 27, Glucose Level 158H, Calcium Level 8.9, Corrected Calcium 9.6, Total Bilirubin 0.5, Aspartate Amino Transf (AST/SGOT) 23, Alanine Aminotransferase (ALT/SGPT) 70H, Alkaline Phosphatase 70, Total Protein 5.3L, Albumin 3.1L 12/09/20 05:32: Glucometer 147H 12/09/20 10:48: Glucometer 312H 12/09/20 15:29: Glucometer 266H 12/09/20 20:28: Glucometer 277H 12/10/20 05:09: Glucometer 181H 12/10/20 10:58: Glucometer 195H 12/10/20 16:18: Glucometer 257H 12/10/20 20:41: Glucometer 332H 12/11/20 05:10: Glucometer 197H 12/11/20 11:03: Glucometer 172H 12/11/20 16:04: Glucometer 407*H 12/11/20 20:41: Glucometer 271H 12/12/20 05:14: Glucometer 139H 12/12/20 11:38: Glucometer 197H 12/12/20 15:33: Glucometer 298H 12/12/20 20:01: Glucometer 243H 12/13/20 05:10: Glucometer 100 12/13/20 10:57: Glucometer 353H 12/13/20 15:40: Glucometer 266H 12/13/20 20:10: Glucometer 301H 12/14/20 05:24: Glucometer 171H 12/14/20 11:07: Glucometer 222H 12/14/20 15:41: Glucometer 333H 12/14/20 21:15: Glucometer 205H 12/15/20 05:24: Glucometer 130H 12/15/20 11:38: Glucometer 226H 12/15/20 15:08: Glucometer 305H 12/15/20 20:20: Glucometer 288H 12/16/20 05:00: White Blood Count 7.5, Red Blood Count 3.04L, Hemoglobin 8.9L, Hematocrit 28L, Mean Corpuscular Volume 92, Mean Corpuscular Hemoglobin 29, Mean Corpuscular Hemoglobin Concent 32, Red Cell Distribution Width 20.1H, Platelet Count 126L, Mean Platelet Volume 9.1, Immature Granulocyte % (Auto) 5, Neutrophils (%) (Auto) 76H, Lymphocytes (%) (Auto) 10L, Monocytes (%) (Auto) 9, Eosinophils (%) (Auto) 0, Basophils (%) (Auto) 0, Neutrophils # (Auto) 5.7, Lymphocytes # (Auto) 0.8L, Monocytes # (Auto) 0.7, Eosinophils # (Auto) 0.0, Basophils # (Auto) 0.0, Immature Granulocyte # (Auto) 0.4H, Sodium Level 141, Potassium Level 3.5L, Chloride Level 104, Carbon Dioxide Level 27, Anion Gap 10, Blood Urea Nitrogen 19H, Creatinine 0.80, Estimat Glomerular Filtration Rate > 60, BUN/Creatinine Ratio 24, Glucose Level 147H, Calcium Level 8.6, Corrected Calcium 9.4, Total Bilirubin 0.4, Aspartate Amino Transf (AST/SGOT) 12, Alanine Aminotransferase (ALT/SGPT) 44, Alkaline Phosphatase 64, Total Protein 5.2L, Albumin 3.0L 12/16/20 10:53: Glucometer 250H 12/16/20 15:33: Glucometer 214H 12/16/20 20:41: Glucometer 315H 12/17/20 05:50: Glucometer 195H 12/17/20 11:24: Glucometer 167H 12/17/20 16:10: Glucometer 307H 12/17/20 20:10: Glucometer 210H 12/18/20 06:02: Glucometer 127H 12/18/20 12:25: Glucometer 257H 12/18/20 16:24: Glucometer 264H 12/18/20 20:45: Glucometer 254H 12/19/20 05:11: Glucometer 157H 12/19/20 11:05: Glucometer 192H 12/19/20 16:10: Glucometer 274H 12/19/20 21:39: Glucometer 213H 12/20/20 05:34: Glucometer 150H 12/20/20 10:51: Glucometer 265H 12/20/20 15:29: Glucometer 262H 12/20/20 20:18: Glucometer 286H 12/21/20 05:37: Glucometer 115H 12/21/20 10:58: Glucometer 141H 12/21/20 16:12: Glucometer 305H 12/21/20 20:06: Glucometer 176H 12/22/20 05:31: Glucometer 121H 12/22/20 10:50: Glucometer 142H 12/22/20 15:31: Glucometer 292H 12/22/20 20:05: Glucometer 223H 12/23/20 04:58: White Blood Count 7.1, Red Blood Count 3.16L, Hemoglobin 9.3L, Hematocrit 30L, Mean Corpuscular Volume 95, Mean Corpuscular Hemoglobin 29, Mean Corpuscular Hemoglobin Concent 31L, Red Cell Distribution Width 20.5H, Platelet Count 260, Mean Platelet Volume 9.6, Immature Granulocyte % (Auto) 7, Neutrophils (%) (Auto) 67, Lymphocytes (%) (Auto) 12, Monocytes (%) (Auto) 13H, Eosinophils (%) (Auto) 0, Basophils (%) (Auto) 1, Neutrophils # (Auto) 4.8, Lymphocytes # (Auto) 0.9L, Monocytes # (Auto) 0.9, Eosinophils # (Auto) 0.0, Basophils # (Auto) 0.0, Immature Granulocyte # (Auto) 0.5H, Sodium Level 143, Potassium Level 4.3, Chloride Level 104, Carbon Dioxide Level 28, Anion Gap 11, Blood Urea Nitrogen 19H, Creatinine 0.87, Estimat Glomerular Filtration Rate > 60, BUN/Creatinine Ratio 22, Glucose Level 130H, Calcium Level 9.1, Corrected Calcium 9.7, Total Bilirubin 0.4, Aspartate Amino Transf (AST/SGOT) 15, Alanine Aminotransferase (ALT/SGPT) 36, Alkaline Phosphatase 51, Total Protein 5.8L, Albumin 3.3 12/23/20 11:01: Glucometer 130H 12/23/20 15:41: Glucometer 238H 12/23/20 20:29: Glucometer 192H 12/24/20 04:42: Glucometer 119H 12/24/20 10:51: Glucometer 169H 12/24/20 15:21: Glucometer 265H 12/24/20 20:27: Glucometer 208H 12/25/20 05:23: Glucometer 169H 12/25/20 12:10: Glucometer 196H 12/25/20 16:02: Glucometer 248H 12/25/20 20:11: Glucometer 237H 12/26/20 05:35: Glucometer 104 12/26/20 11:20: Glucometer 142H 12/26/20 16:13: Glucometer 228H 12/26/20 20:00: Glucometer 279H 12/27/20 05:11: Glucometer 148H 12/27/20 10:54: Glucometer 168H 12/27/20 15:31: Glucometer 269H 12/27/20 20:03: Glucometer 275H 12/28/20 05:35: Glucometer 136H 12/28/20 10:22: Glucometer 167H 12/28/20 15:35: Glucometer 292H 12/28/20 20:08: Glucometer 194H 12/29/20 05:21: Glucometer 109 12/29/20 10:24: Glucometer 196H 12/29/20 16:13: Glucometer 232H 12/29/20 19:55: Glucometer 244H 12/30/20 05:09: Glucometer 145H 12/30/20 05:10: White Blood Count 9.3, Red Blood Count 2.92L, Hemoglobin 8.4L, Hematocrit 28L, Mean Corpuscular Volume 94, Mean Corpuscular Hemoglobin 29, Mean Corpuscular Hemoglobin Concent 31L, Red Cell Distribution Width 20.5H, Platelet Count 189, Mean Platelet Volume 9.5, Immature Granulocyte % (Auto) 8, Neutrophils (%) (Auto) 65, Lymphocytes (%) (Auto) 13, Monocytes (%) (Auto) 14H, Eosinophils (%) (Auto) 0, Basophils (%) (Auto) 0, Neutrophils # (Auto) 6.1, Lymphocytes # (Auto) 1.2, Monocytes # (Auto) 1.3H, Eosinophils # (Auto) 0.0, Basophils # (Auto) 0.0, Immature Granulocyte # (Auto) 0.7H, Sodium Level 140, Potassium Level 4.1, Chloride Level 102, Carbon Dioxide Level 26, Anion Gap 12, Blood Urea Nitrogen 20H, Creatinine 1.04, Estimat Glomerular Filtration Rate > 60, BUN/Creatinine Ratio 19, Glucose Level 151H, Uric Acid 7.1, Calcium Level 9.2, Corrected Calcium 9.8, Total Bilirubin 0.5, Aspartate Amino Transf (AST/SGOT) 16, Alanine Aminotransferase (ALT/SGPT) 24, Alkaline Phosphatase 52, Total Protein 5.9L, Albumin 3.2 12/30/20 10:50: Glucometer 171H 12/30/20 15:32: Glucometer 239H 12/30/20 20:10: Glucometer 254H 12/31/20 05:36: Glucometer 122H 12/31/20 15:24: Glucometer 222H 12/31/20 20:05: Glucometer 235H 01/01/21 05:10: Glucometer 138H 01/01/21 10:57: Glucometer 152H 01/01/21 15:35: Glucometer 217H 01/01/21 20:15: Glucometer 218H 01/02/21 06:10: Glucometer 124H 01/02/21 10:59: Glucometer 151H 01/02/21 15:41: Glucometer 249H 01/02/21 20:05: Glucometer 178H 01/03/21 04:58: Glucometer 120H 01/03/21 09:00: Uric Acid 9.0H 01/03/21 11:00: Glucometer 90 01/03/21 16:11: Glucometer 167H 01/03/21 20:13: Glucometer 220H 01/04/21 05:31: Glucometer 113H 01/04/21 10:44: Glucometer 134H 01/04/21 15:28: Glucometer 211H 01/04/21 20:16: Glucometer 116H 01/05/21 04:55: Glucometer 110 01/05/21 10:50: Glucometer 149H 01/05/21 14:16: Glucometer 133H 01/05/21 15:26: Glucometer 114H 01/05/21 19:59: Glucometer 156H 01/06/21 05:25: Glucometer 125H 01/06/21 05:27: White Blood Count 8.5, Red Blood Count 2.50L, Hemoglobin 7.4L, Hematocrit 24L, Mean Corpuscular Volume 96, Mean Corpuscular Hemoglobin 30, Mean Corpuscular Hemoglobin Concent 31L, Red Cell Distribution Width 20.6H, Platelet Count 175, Mean Platelet Volume 9.7, Immature Granulocyte % (Auto) 3, Neutrophils (%) (Auto) 72, Lymphocytes (%) (Auto) 11L, Monocytes (%) (Auto) 13H, Eosinophils (%) (Auto) 0, Basophils (%) (Auto) 1, Neutrophils # (Auto) 6.1, Lymphocytes # (Auto) 0.9L, Monocytes # (Auto) 1.1H, Eosinophils # (Auto) 0.0, Basophils # (Auto) 0.1, Immature Granulocyte # (Auto) 0.2H, Sodium Level 138, Potassium Level 4.1, Chloride Level 102, Carbon Dioxide Level 25, Anion Gap 11, Blood Urea Nitrogen 18, Creatinine 1.04, Estimat Glomerular Filtration Rate > 60, BUN/Creatinine Ratio 17, Glucose Level 117H, Uric Acid 9.2H, Calcium Level 9.0, Corrected Justice cium 9.6, Iron Level 30L, Total Bilirubin 0.8, Aspartate Amino Transf (AST/SGOT) 13, Alanine Aminotransferase (ALT/SGPT) 17, Alkaline Phosphatase 57, Total Protein 6.1L, Albumin 3.2 01/06/21 10:46: Glucometer 142H 01/06/21 15:31: Glucometer 124H 01/06/21 20:29: Glucometer 128H 01/07/21 06:02: Glucometer 118H 01/07/21 10:49: Glucometer 157H 01/07/21 11:35: Sodium Level 140, Potassium Level 4.0, Chloride Level 103, Carbon Dioxide Level 24, Anion Gap 13, Blood Urea Nitrogen 15, Creatinine 1.12, Estimat Glomerular Filtration Rate > 60, BUN/Creatinine Ratio 13, Glucose Level 154H, Calcium Level 9.0, Corrected Calcium 9.7, Total Bilirubin 0.9, Aspartate Amino Transf (AST/SGOT) 14, Alanine Aminotransferase (ALT/SGPT) 17, Alkaline Phosphatase 57, Total Protein 6.3L, Albumin 3.1L, Procalcitonin 0.23H 01/07/21 11:59: White Blood Count 7.8, Red Blood Count 2.57L, Hemoglobin 7.5L, Hematocrit 24L, Mean Corpuscular Volume 95, Mean Corpuscular Hemoglobin 29, Mean Corpuscular Hemoglobin Concent 31L, Red Cell Distribution Width 20.4H, Platelet Count 182, Mean Platelet Volume 8.7L, Immature Granulocyte % (Auto) 3, Neutrophils (%) (Auto) 72, Lymphocytes (%) (Auto) 9L, Monocytes (%) (Auto) 16H, Eosinophils (%) (Auto) 0, Basophils (%) (Auto) 0, Neutrophils # (Auto) 5.6, Lymphocytes # (Auto) 0.7L, Monocytes # (Auto) 1.3H, Eosinophils # (Auto) 0.0, Basophils # (Auto) 0.0, Immature Granulocyte # (Auto) 0.2H 01/07/21 12:00: Lactic Acid Level 2.14*H, B-Type Natriuretic Peptide 103.9H 01/07/21 12:12: Blood Gas Puncture Site R RAD, Blood Gas Patient Temperature 36.4, Arterial Blood pH 7.46H, Arterial Blood Partial Pressure CO2 36, Arterial Blood Partial Pressure O2 82, Arterial Blood HCO3 25, Arterial Blood Total CO2 26.3, Arterial Blood Oxygen Saturation 98, Arterial Blood Base Excess 1.6, Jeffy Test YES-POS, Blood Gas Ventilator Setting NO, Blood Gas Inspired Oxygen 4L 01/07/21 14:15: Lactic Acid Level 1.71 01/07/21 15:45: Urine Color YELLOW, Urine Clarity CLEAR, Urine pH 6.0, Urine Specific Stanton 1.020, Urine Protein NEGATIVE, Urine Glucose (UA) NEGATIVE, Urine Ketones NEGATIVE, Urine Nitrite NEGATIVE, Urine Bilirubin NEGATIVE, Urine Urobilinogen 1.0, Urine Leukocyte Esterase TRACEH, Urine RBC (Auto) NEGATIVE, Urine RBC NONE, Urine WBC 5-10H, Urine Squamous Epithelial Cells 0-2, Urine Crystals NONE, Urine Bacteria NEGATIVE, Urine Casts NONE, Urine Mucus NEGATIVE, Urine Culture Indicated NO, Urine Legionella pneumophilia Ag Negative, Streptococcus pneumoniae Antigen Negative 01/07/21 16:15: Glucometer 136H 01/07/21 20:02: Glucometer 216H 01/08/21 05:44: Glucometer 88 01/08/21 06:10: White Blood Count 8.2, Red Blood Count 3.11L, Hemoglobin 9.1#L, Hematocrit 29L, Mean Corpuscular Volume 92, Mean Corpuscular Hemoglobin 29, Mean Corpuscular Hemoglobin Concent 32, Red Cell Distribution Width 19.5H, Platelet Count 172, Mean Platelet Volume 9.1, Sodium Level 140, Potassium Level 3.7, Chloride Level 103, Carbon Dioxide Level 25, Anion Gap 12, Blood Urea Nitrogen 13, Creatinine 1.17, Estimat Glomerular Filtration Rate 60, BUN/Creatinine Ratio 11, Glucose Level 88, Calcium Level 8.4L, Corrected Calcium 9.2, Total Bilirubin 1.0, Aspartate Amino Transf (AST/SGOT) 14, Alanine Aminotransferase (ALT/SGPT) 15, Alkaline Phosphatase 55, Total Protein 6.1L, Albumin 3.0L, Procalcitonin 0.21H 01/08/21 10:35: Stool Occult Blood Immunoassay NEGATIVE 01/08/21 10:59: Glucometer 152H 01/08/21 16:32: Glucometer 146H 01/08/21 20:05: Glucometer 154H 01/09/21 03:45: White Blood Count 6.5, Red Blood Count 2.78L, Hemoglobin 8.2L, Hematocrit 26L, Mean Corpuscular Volume 94, Mean Corpuscular Hemoglobin 30, Mean Corpuscular Hemoglobin Concent 31L, Red Cell Distribution Width 19.4H, Platelet Count 186, Mean Platelet Volume 9.6, Immature Granulocyte % (Auto) 2, Neutrophils (%) (Auto) 65, Lymphocytes (%) (Auto) 12, Monocytes (%) (Auto) 21H, Eosinophils (%) (Auto) 1, Basophils (%) (Auto) 1, Neutrophils # (Auto) 4.2, Lymphocytes # (Auto) 0.8L, Monocytes # (Auto) 1.3H, Eosinophils # (Auto) 0.0, Basophils # (Auto) 0.0, Immature Granulocyte # (Auto) 0.1, Neutrophils % (Manual) 70, Lymphocytes % (Manual) 12, Monocytes % (Manual) 15, Eosinophils % (Manual) 1, Band Neutrophils 2, Nucleated Red Blood Cells 2, Polychromasia MODERATE, Poikilocytosis SLIGHT, Anisocytosis MODERATE, Microcytosis SLIGHT, Macrocytosis SLIGHT, Sodium Level 138, Potassium Level 3.4L, Chloride Level 101, Carbon Dioxide Level 25, Anion Gap 12, Blood Urea Nitrogen 13, Creatinine 1.22, Estimat Glomerular Filtration Rate 57, BUN/Creatinine Ratio 11, Glucose Level 101, Calcium Level 8.2L, Corrected Calcium 9.2, Total Bilirubin 1.0, Aspartate Amino Transf (AST/SGOT) 14, Alanine Aminotransferase (ALT/SGPT) 16, Alkaline Phosphatase 49, Total Protein 5.7L, Albumin 2.8L, Procalcitonin 0.49H, Vancomycin Level Trough 28.4*H 2/18/21 05:56: Glucometer 98 01/09/21 10:54: Glucometer 154H 01/09/21 15:42: Glucometer 122H 01/09/21 20:43: Glucometer 114H 01/10/21 05:19: Glucometer 103 01/10/21 15:46: Glucometer 166H 01/10/21 20:03: Glucometer 156H 01/11/21 06:22: Glucometer 106 01/11/21 08:30: White Blood Count 6.6, Red Blood Count 2.93L, Hemoglobin 8.6L, Hematocrit 28L, Mean Corpuscular Volume 94, Mean Corpuscular Hemoglobin 29, Mean Corpuscular Hemoglobin Concent 31L, Red Cell Distribution Width 18.9H, Platelet Count 205, Mean Platelet Volume 8.7L, Immature Granulocyte % (Auto) 1, Neutrophils (%) (Auto) 69, Lymphocytes (%) (Auto) 14, Monocytes (%) (Auto) 15H, Eosinophils (%) (Auto) 0, Basophils (%) (Auto) 1, Neutrophils # (Auto) 4.6, Lymphocytes # (Auto) 0.9L, Monocytes # (Auto) 1.0, Eosinophils # (Auto) 0.0, Basophils # (Auto) 0.1, Immature Granulocyte # (Auto) 0.1, Sodium Level 135, Potassium Level 3.5L, Chloride Level 101, Carbon Dioxide Level 25, Anion Gap 9, Blood Urea Nitrogen 1 3, Creatinine 1.16, Estimat Glomerular Filtration Rate > 60, BUN/Creatinine Ratio 11, Glucose Level 155H, Lactic Acid Level 2.61*H, Calcium Level 8.5, Corrected Calcium 9.5, Magnesium Level 1.8, Total Bilirubin 0.7, Aspartate Amino Transf (AST/SGOT) 12, Alanine Aminotransferase (ALT/SGPT) 13, Alkaline Phosphatase 50, Total Protein 5.9L, Albumin 2.7L, Procalcitonin 0.44H 01/11/21 10:50: Lactic Acid Level 1.92 01/11/21 11:21: Glucometer 111H 01/11/21 16:31: Glucometer 157H 01/11/21 21:30: Glucometer 147H 01/12/21 06:32: Glucometer 77 01/12/21 11:38: Glucometer 126H 01/12/21 16:44: Glucometer 143H 01/12/21 20:07: Glucometer 130H 01/13/21 05:26: White Blood Count 5.2, Red Blood Count 3.06L, Hemoglobin 8.8L, Hematocrit 29L, Mean Corpuscular Volume 95, Mean Corpuscular Hemoglobin 29, Mean Corpuscular Hemoglobin Concent 30L, Red Cell Distribution Width 18.6H, Platelet Count 274, Mean Platelet Volume 8.8L, Immature Granulocyte % (Auto) 2, Neutrophils (%) (Auto) 62, Lymphocytes (%) (Auto) 21, Monocytes (%) (Auto) 12, Eosinophils (%) (Auto) 2, Basophils (%) (Auto) 1, Neutrophils # (Auto) 3.2, Lymphocytes # (Auto) 1.1, Monocytes # (Auto) 0.6, Eosinophils # (Auto) 0.1, Basophils # (Auto) 0.1, Immature Granulocyte # (Auto) 0.1, Sodium Level 137, Potassium Level 3.6, Chloride Level 105, Carbon Dioxide Level 23, Anion Gap 9, Blood Urea Nitrogen 7, Creatinine 1.09, Estimat Glomerular Filtration Rate > 60, BUN/Creatinine Ratio 6, Glucose Level 100, Calcium Level 8.9, Corrected Calcium 9.9, Total Bilirubin 0.5, Aspartate Amino Transf (AST/SGOT) 14, Alanine Aminotransferase (ALT/SGPT) 13, Alkaline Phosphatase 58, B-Type Natriuretic Peptide 65.6, Total Protein 6.2L , Albumin 2.8L, Procalcitonin 0.27H 01/13/21 07:50: D-Dimer 1.04H 01/13/21 11:22: Glucometer 153H 01/13/21 17:01: Glucometer 149H 01/13/21 21:03: Glucometer 149H 01/14/21 05:19: Glucometer 113H 01/14/21 11:11: Glucometer 128H 01/14/21 15:35: Glucometer 121H 01/14/21 20:08: Glucometer 157H 01/15/21 05:46: Glucometer 93 01/15/21 05:47: White Blood Count 5.4, Red Blood Count 3.10L, Hemoglobin 9.0L, Hematocrit 29L, Mean Corpuscular Volume 95, Mean Corpuscular Hemoglobin 29, Mean Corpuscular Hemoglobin Concent 31L, Red Cell Distribution Width 18.6H, Platelet Count 306, Mean Platelet Volume 8.4L, Immature Granulocyte % (Auto) 2, Neutrophils (%) (Auto) 67, Lymphocytes (%) (Auto) 19, Monocytes (%) (Auto) 10, Eosinophils (%) (Auto) 1, Basophils (%) (Auto) 2, Neutrophils # (Auto) 3.6, Lymphocytes # (Auto) 1.0, Monocytes # (Auto) 0.5, Eosinophils # (Auto) 0.0, Basophils # (Auto) 0.1, Immature Granulocyte # (Auto) 0.1, Sodium Level 137, Potassium Level 3.7, Chloride Level 102, Carbon Dioxide Level 27, Anion Gap 8, Blood Urea Nitrogen 9, Creatinine 1.19, Estimat Glomerular Filtration Rate 59, BUN/Creatinine Ratio 8, Glucose Level 95, Calcium Level 9.0, Corrected Calcium 9.9, Total Bilirubin 0.6, Aspartate Amino Transf (AST/SGOT) 24, Alanine Aminotransferase (ALT/SGPT) 17, Alkaline Phosphatase 64, Total Protein 6.7, Albumin 2.9L 01/15/21 11:04: Glucometer 116H 01/15/21 15:42: Glucometer 136H 01/15/21 20:20: Glucometer 173H 01/16/21 05:21: Glucometer 99 01/16/21 10:47: Glucometer 125H Microbiology 01/07/21 MRSA Screen - Final, Complete MRSA not isolated 01/07/21 Blood Culture - Final, Complete No growth Pending Labs Microbiology Date/Time Source Procedure Growth Status 01/07/21 14:30 Nasal MRSA Screen - Final MRSA not isolated Complete 01/07/21 14:25 Peripheral Lt Ac Blood Culture - Final No growth Complete 01/07/21 14:15 Peripheral Lt Ac Blood Culture - Final No growth Complete Laboratory Tests 12/04/20 20:46: Glucometer 227 12/05/20 05:09: Glucometer 111 12/05/20 06:50: White Blood Count 21.5, Red Blood Count 3.98, Hemoglobin 11.7, Hematocrit 35, Mean Corpuscular Volume 88, Mean Corpuscular Hemoglobin 29, Mean Corpuscular H emoglobin Concent 34, Red Cell Distribution Width 18.8, Platelet Count 174, Mean Platelet Volume 9.7, Immature Granulocyte % (Auto) 3, Neutrophils (%) (Auto) 86, Lymphocytes (%) (Auto) 5, Monocytes (%) (Auto) 6, Eosinophils (%) (Auto) 0, Basophils (%) (Auto) 0, Neutrophils # (Auto) 18.5, Lymphocytes # (Auto) 1.0, Monocytes # (Auto) 1.2, Eosinophils # (Auto) 0.0, Basophils # (Auto) 0.0, Immature Granulocyte # (Auto) 0.7, Neutrophils % (Manual) 90, Lymphocytes % (Manual) 4, Monocytes % (Manual) 6, Eosinophils % (Manual) 0, Basophils % (Manual) 0, Band Neutrophils 0, Polychromasia SLIGHT, Anisocytosis MODERATE, Sodium Level 133, Potassium Level 4.3, Chloride Level 98, Carbon Dioxide Level 25, Anion Gap 10, Blood Urea Nitrogen 28, Creatinine 0.79, Estimat Glomerular Filtration Rate > 60, BUN/Creatinine Ratio 35, Glucose Level 108, Calcium Level 9.0, Corrected Calcium 9.6, Total Bilirubin 0.8, Aspartate Amino Transf (AST/SGOT) 27, Alanine Aminotransferase (ALT/SGPT) 65, Alkaline Phosphatase 85, Total Protein 5.5, Albumin 3.2, Procalcitonin 0.10 12/05/20 10:48: Glucometer 154 12/05/20 16:45: Glucometer 327 12/05/20 20:51: Glucometer 250 12/06/20 06:27: Glucometer 54 12/06/20 10:54: Glucometer 246 12/06/20 16:12: Glucometer 276 12/06/20 20:06: Glucometer 296 12/07/20 06:25: Glucometer 153 12/07/20 10:40: Glucometer 205 12/07/20 15:36: Glucometer 331 12/07/20 20:26: Glucometer 323 12/08/20 05:25: Glucometer 174 12/08/20 10:38: Glucometer 225 12/08/20 16:16: Glucometer 240 12/08/20 20:06: Glucometer 295 12/09/20 04:30: White Blood Count 8.4, Red Blood Count 3.33, Hemoglobin 9.5, Hematocrit 30, Mean Corpuscular Volume 90, Mean Corpuscular Hemoglobin 29, Mean Corpuscular Hemoglobin Concent 32, Red Cell Distribution Width 19.7, Platelet Count 97, Mean Platelet Volume 9.4, Immature Granulocyte % (Auto) 2, Neutrophils (%) (Auto) 84, Lymphocytes (%) (Auto) 7, Monocytes (%) (Auto) 7, Eosinophils (%) (Auto) 0, Basophils (%) (Auto) 0, Neutrophils # (Auto) 7.1, Lymphocytes # (Auto) 0.6, Monocytes # (Auto) 0.6, Eosinophils # (Auto) 0.0, Basophils # (Auto) 0.0, Immature Granulocyte # (Auto) 0.2, Sodium Level 141, Potassium Level 4.6, Chloride Level 102, Carbon Dioxide Level 30, Anion Gap 9, Blood Urea Nitrogen 22, Creatinine 0.81, Estimat Glomerular Filtration Rate > 60, BUN/Creatinine Ratio 27, Glucose Level 158, Calcium Level 8.9, Corrected Calcium 9.6, Total Bilirubin 0.5, Aspartate Amino Transf (AST/SGOT) 23, Alanine Aminotransferase (ALT/SGPT) 70, Alkaline Phosphatase 70, Total Protein 5.3, Albumin 3.1 12/09/20 05:32: Glucometer 147 12/09/20 10:48: Glucometer 312 12/09/20 15:29: Glucometer 266 12/09/20 20:28: Glucometer 277 12/10/20 05:09: Glucometer 181 12/10/20 10:58: Glucometer 195 12/10/20 16:18: Glucometer 257 12/10/20 20:41: Glucometer 332 12/11/20 05:10: Glucometer 197 12/11/20 11:03: Glucometer 172 12/11/20 16:04: Glucometer 407 12/11/20 20:41: Glucometer 271 12/12/20 05:14: Glucometer 139 12/12/20 11:38: Glucometer 197 12/12/20 15:33: Glucometer 298 12/12/20 20:01: Glucometer 243 12/13/20 05:10: Glucometer 100 12/13/20 10:57: Glucometer 353 12/13/20 15:40: Glucometer 266 12/13/20 20:10: Glucometer 301 12/14/20 05:24: Glucometer 171 12/14/20 11:07: Glucometer 222 12/14/20 15:41: Glucometer 333 12/14/20 21:15: Glucometer 205 12/15/20 05:24: Glucometer 130 12/15/20 11:38: Glucometer 226 12/15/20 15:08: Glucometer 305 12/15/20 20:20: Glucometer 288 12/16/20 05:00: White Blood Count 7.5, Red Blood Count 3.04, Hemoglobin 8.9, Hematocrit 28, Mean Corpuscular Volume 92, Mean Corpuscular Hemoglobin 29, Mean Corpuscular Hemoglobin Concent 32, Red Cell Distribution Width 20.1, Platelet Count 126, Mean Platelet Volume 9.1, Immature Granulocyte % (Auto) 5, Neutrophils (%) (Auto) 76, Lymphocytes (%) (Auto) 10, Monocytes (%) (Auto) 9, Eosinophils (%) (Auto) 0, Basophils (%) (Auto) 0, Neutrophils # (Auto) 5.7, Lymphocytes # (Auto) 0.8, Monocytes # (Auto) 0.7, Eosinophils # (Auto) 0.0, Basophils # (Auto) 0.0, Immature Granulocyte # (Auto) 0.4, Sodium Level 141, Potassium Level 3.5, Chloride Level 104, Carbon Dioxide Level 27, Anion Gap 10, Blood Urea Nitrogen 19, Creatinine 0.80, Estimat Glomerular Filtration Rate > 60, BUN/Creatinine Ratio 24, Glucose Level 147, Calcium Level 8.6, Corrected Calcium 9.4, Total Bilirubin 0.4, Aspartate Amino Transf (AST/SGOT) 12, Alanine Aminotransferase (A LT/SGPT) 44, Alkaline Phosphatase 64, Total Protein 5.2, Albumin 3.0 12/16/20 10:53: Glucometer 250 12/16/20 15:33: Glucometer 214 12/16/20 20:41: Glucometer 315 12/17/20 05:50: Glucometer 195 12/17/20 11:24: Glucometer 167 12/17/20 16:10: Glucometer 307 12/17/20 20:10: Glucometer 210 12/18/20 06:02: Glucometer 127 12/18/20 12:25: Glucometer 257 12/18/20 16:24: Glucometer 264 12/18/20 20:45: Glucometer 254 12/19/20 05:11: Glucometer 157 12/19/20 11:05: Glucometer 192 12/19/20 16:10: Glucometer 274 12/19/20 21:39: Glucometer 213 12/20/20 05:34: Glucometer 150 12/20/20 10:51: Glucometer 265 12/20/20 15:29: Glucometer 262 12/20/20 20:18: Glucometer 286 12/21/20 05:37: Glucometer 115 12/21/20 10:58: Glucometer 141 12/21/20 16:12: Glucometer 305 12/21/20 20:06: Glucometer 176 12/22/20 05:31: Glucometer 121 12/22/20 10:50: Glucometer 142 12/22/20 15:31: Glucometer 292 12/22/20 20:05: Glucometer 223 12/23/20 04:58: White Blood Count 7.1, Red Blood Count 3.16, Hemoglobin 9.3, Hematocrit 30, Mean Corpuscular Volume 95, Mean Corpuscular Hemoglobin 29, Mean Corpuscular Hemoglobin Concent 31, Red Cell Distribution Width 20.5, Platelet Count 260, Mean Platelet Volume 9.6, Immature Granulocyte % (Auto) 7, Neutrophils (%) (Auto ) 67, Lymphocytes (%) (Auto) 12, Monocytes (%) (Auto) 13, Eosinophils (%) (Auto) 0, Basophils (%) (Auto) 1, Neutrophils # (Auto) 4.8, Lymphocytes # (Auto) 0.9, Monocytes # (Auto) 0.9, Eosinophils # (Auto) 0.0, Basophils # (Auto) 0.0, Immature Granulocyte # (Auto) 0.5, Sodium Level 143, Potassium Level 4.3, Chloride Level 104, Carbon Dioxide Level 28, Anion Gap 11, Blood Urea Nitrogen 19, Creatinine 0.87, Estimat Glomerular Filtration Rate > 60, BUN/Creatinine Ratio 22, Glucose Level 130, Calcium Level 9.1, Corrected Calcium 9.7, Total Bilirubin 0.4, Aspartate Amino Transf (AST/SGOT) 15, Alanine Aminotransferase (ALT/SGPT) 36, Alkaline Phosphatase 51, Total Protein 5.8, Albumin 3.3 12/23/20 11:01: Glucometer 130 12/23/20 15:41: Glucometer 238 12/23/20 20:29: Glucometer 192 12/24/20 04:42: Glucometer 119 12/24/20 10:51: Glucometer 169 12/24/20 15:21: Glucometer 265 12/24/20 20:27: Glucometer 208 12/25/20 05:23: Glucometer 169 12/25/20 12:10: Glucometer 196 12/25/20 16:02: Glucometer 248 12/25/20 20:11: Glucometer 237 12/26/20 05:35: Glucometer 104 12/26/20 11:20: Glucometer 142 12/26/20 16:13: Glucometer 228 12/26/20 20:00: Glucometer 279 12/27/20 05:11: Glucometer 148 12/27/20 10:54: Glucometer 168 12/27/20 15:31: Glucometer 269 12/27/20 20:03: Glucometer 275 12/28/20 05:35: Glucometer 136 12/28/20 10:22: Glucometer 167 12/28/20 15:35: Glucometer 292 12/28/20 20:08: Glucometer 194 12/29/20 05:21: Glucometer 109 12/29/20 10:24: Glucometer 196 12/29/20 16:13: Glucometer 232 12/29/20 19:55: Glucometer 244 12/30/20 05:09: Glucometer 145 12/30/20 05:10: White Blood Count 9.3, Red Blood Count 2.92, Hemoglobin 8.4, Hematocrit 28, Mean Corpuscular Volume 94, Mean Corpuscular Hemoglobin 29, Mean Corpuscular Hemoglobin Concent 31, Red Cell Distribution Width 20.5, Platelet Count 189, Mean Platelet Volume 9.5, Immature Granulocyte % (Auto) 8, Neutrophils (%) ( Auto) 65, Lymphocytes (%) (Auto) 13, Monocytes (%) (Auto) 14, Eosinophils (%) (Auto) 0, Basophils (%) (Auto) 0, Neutrophils # (Auto) 6.1, Lymphocytes # (Auto) 1.2, Monocytes # (Auto) 1.3, Eosinophils # (Auto) 0.0, Basophils # (Auto) 0.0, Immature Granulocyte # (Auto) 0.7, Sodium Level 140, Potassium Level 4.1, Chloride Level 102, Carbon Dioxide Level 26, Anion Gap 12, Blood Urea Nitrogen 20, Creatinine 1.04, Estimat Glomerular Filtration Rate > 60, BUN/Creatinine Ratio 19, Glucose Level 151, Uric Acid 7.1, Calcium Level 9.2, Corrected Calcium 9.8, Total Bilirubin 0.5, Aspartate Amino Transf (AST/SGOT) 16, Alanine Aminotransferase (ALT/SGPT) 24, Alkaline Phosphatase 52, Total Protein 5.9, Albumin 3.2 12/30/20 10:50: Glucometer 171 12/30/20 15:32: Glucometer 239 12/30/20 20:10: Glucometer 254 12/31/20 05:36: Glucometer 122 12/31/20 15:24: Glucometer 222 12/31/20 20:05: Glucometer 235 01/01/21 05:10: Glucometer 138 01/01/21 10:57: Glucometer 152 01/01/21 15:35: Glucometer 217 01/01/21 20:15: Glucometer 218 01/02/21 06:10: Glucometer 124 01/02/21 10:59: Glucometer 151 01/02/21 15:41: Glucometer 249 01/02/21 20:05: Glucometer 178 01/03/21 04:58: Glucometer 120 01/03/21 09:00: Uric Acid 9.0 01/03/21 11:00: Glucometer 90 01/03/21 16:11: Glucometer 167 01/03/21 20:13: Glucometer 220 01/04/21 05:31: Glucometer 113 01/04/21 10:44: Glucometer 134 01/04/21 15:28: Glucometer 211 01/04/21 20:16: Glucometer 116 01/05/21 04:55: Glucometer 110 01/05/21 10:50: Glucometer 149 01/05/21 14:16: Glucometer 133 01/05/21 15:26: Glucometer 114 01/05/21 19:59: Glucometer 156 01/06/21 05:25: Glucometer 125 01/06/21 05:27: White Blood Count 8.5, Red Blood Count 2.50, Hemoglobin 7.4, Hematocrit 24, Mean Corpuscular Volume 96, Mean Corpuscular Hemoglobin 30, Mean Corpuscular Hemoglobin Concent 31, Red Cell Distribution Width 20.6, Platelet Count 175, Mean Platelet Volume 9.7, Immature Granulocyte % (Auto) 3, Neutrophils (%) (Auto) 72, Lymphocytes (%) (Auto) 11, Monocytes (%) (Auto) 13, Eosinophils (%) (Auto) 0, Basophils (%) (Auto) 1, Neutrophils # (Auto) 6.1, Lymphocytes # (Auto) 0.9, Monocytes # (Auto) 1.1, Eosinophils # (Auto) 0.0, Basophils # (Auto) 0.1, Immature Granulocyte # (Auto) 0.2, Sodium Level 138, Potassium Level 4.1, Chloride Level 102, Carbon Dioxide Level 25, Anion Gap 11, Blood Urea Nitrogen 18, Creatinine 1.04, Estimat Glomerular Filtration Rate > 60, BUN/Creatinine Ratio 17, Glucose Level 117, Uric Acid 9.2, Calcium Level 9.0, Corrected Calcium 9.6, Iron Level 30, Total Bilirubin 0.8, Aspartate Amino Transf (AST/SGOT) 13, Alanine Aminotransferase (ALT/SGPT) 17, Alkaline Phosphatase 57, Total Protein 6.1, Albumin 3.2 01/06/21 10:46: Glucometer 142 01/06/21 15:31: Glucometer 124 01/06/21 20:29: Glucometer 128 01/07/21 06:02: Glucometer 118 01/07/21 10:49: Glucometer 157 01/07/21 11:35: Sodium Level 140, Potassium Level 4.0, Chloride Level 103, Carbon Dioxide Level 24, Anion Gap 13, Blood Urea Nitrogen 15, Creatinine 1.12, Estimat Glomerular Filtration Rate > 60, BUN/Creatinine Ratio 13, Glucose Level 154, Calcium Level 9.0, Corrected Calcium 9.7, Total Bilirubin 0.9, Aspartate Amino Transf (AST/SGOT) 14, Alanine Aminotransferase (ALT/SGPT) 17, Alkaline Phosphatase 57, Total Protein 6.3, Albumin 3.1, Procalcitonin 0.23 01/07/21 11:59: White Blood Count 7.8, Red Blood Count 2.57, Hemoglobin 7.5, Hematocrit 24, Mean Corpuscular Volume 95, Mean Corpuscular Hemoglobin 29, Mean Corpuscular Hemoglobin Concent 31, Red Cell Distribution Width 20.4, Platelet Count 182, Mean Platelet Volume 8.7, Immature Granulocyte % (Auto) 3, Neutrophils (%) (Auto) 72, Lymphocytes (%) (Auto) 9, Monocytes (%) (Auto) 16, Eosinophils (%) (Auto) 0, Basophils (%) (Auto) 0, Neutrophils # (Auto) 5.6, Lymphocytes # (Auto) 0.7, Monocytes # (Auto) 1.3, Eosinophils # (Auto) 0.0, Basophils # (Auto) 0.0, Immature Granulocyte # (Auto) 0.2 01/07/21 12:00: Lactic Acid Level 2.14, B-Type Natriuretic Peptide 103.9 01/07/21 12:12: Blood Gas Puncture Site R RAD, Blood Gas Patient Temperature 36.4, Arterial Blood pH 7.46, Arterial Blood Partial Pressure CO2 36, Arterial Blood Partial Pressure O2 82, Arterial Blood HCO3 25, Arterial Blood Total CO2 26.3, Arterial Blood Oxygen Saturation 98, Arterial Blood Base Excess 1.6, Jeffy Test YES-POS, Blood Gas Ventilator Setting NO, Blood Gas Inspired Oxygen 4L 01/07/21 14:15: Lactic Acid Level 1.71 01/07/21 15:45: Urine Color YELLOW, Urine Clarity CLEAR, Urine pH 6.0, Urine Specific [place] 1.020, Urine Protein NEGATIVE, Urine Glucose (UA) NEGATIVE, Urine Ketones NEGATIVE, Urine Nitrite NEGATIVE, Urine Bilirubin NEGATIVE, Urine Urobilinogen 1.0, Urine Leukocyte Esterase TRACE, Urine RBC (Auto) NEGATIVE, Urine RBC NONE, Urine WBC 5-10, Urine Squamous Epithelial Cells 0-2, Urine Crystals NONE, Urine Bacteria NEGATIVE, Urine Casts NONE, Urine Mucus NEGATIVE, Urine Culture Indicated NO, Urine Legionella pneumophilia Ag Negative, Streptococcus pneumoniae Antigen Negative 01/07/21 16:15: Glucometer 136 01/07/21 20:02: Glucometer 216 01/08/21 05:44: Glucometer 88 01/08/21 06:10: White Blood Count 8.2, Red Blood Count 3.11, Hemoglobin 9.1, Hematocrit 29, Mean Corpuscular Volume 92, Mean Corpuscular Hemoglobin 29, Mean Corpuscular Hemoglobin Concent 32, Red Cell Distribution Width 19.5, Platelet Count 172, Mean Platelet Volume 9.1, Sodium Level 140, Potassium Level 3.7, Chloride Level 103, Carbon Dioxide Level 25, Anion Gap 12, Blood Urea Nitrogen 13, Creatinine 1.17, Estimat Glomerular Filtration Rate 60, BUN/Creatinine Ratio 11, Glucose Level 88, Calcium Level 8.4, Corrected Calcium 9.2, Total Bilirubin 1.0, Aspartate Amino Transf (AST/SGOT) 14, Alanine Aminotransferase (ALT/SGPT) 15, Alkaline Phosphatase 55, Total Protein 6.1, Albumin 3.0, Procalcitonin 0.21 01/08/21 10:35: Stool Occult Blood Immunoassay NEGATIVE 01/08/21 10:59: Glucometer 152 01/08/21 16:32: Glucometer 146 01/08/21 20:05: Glucometer 154 01/09/21 03:45: White Blood Count 6.5, Red Blood Count 2.78, Hemoglobin 8.2, Hematocrit 26, Mean Corpuscular Volume 94, Mean Corpuscular Hemoglobin 30, Mean Corpuscular Hemoglobin Concent 31, Red Cell Distribution Width 19.4, Platelet Count 186, Mean Platelet Volume 9.6, Immature Granulocyte % (Auto) 2, Neutrophils (%) (Auto) 65, Lymphocytes (%) (Auto) 12, Monocytes (%) (Auto) 21, Eosinophils (%) (Auto) 1, Basophils (%) (Auto) 1, Neutrophils # (Auto) 4.2, Lymphocytes # (Auto) 0.8, Monocytes # (Auto) 1.3, Eosinophils # (Auto) 0.0, Basophils # (Auto) 0.0, Immature Granulocyte # (Auto) 0.1, Neutrophils % (Manual) 70, Lymphocytes % (Manual) 12, Monocytes % (Manual) 15, Eosinophils % (Manual) 1, Band Neutrophils 2, Nucleated Red Blood Cells 2, Polychromasia MODERATE, Poikilocytosis SLIGHT, Anisocytosis MODERATE, Microcytosis SLIGHT, Macrocytosis SLIGHT, Sodium Level 138, Potassium Level 3.4, Chloride Level 101, Carbon Dioxide Level 25, Anion Gap 12, Blood Urea Nitrogen 13, Creatinine 1.22, Estimat Glomerular Filtration Rate 57, BUN/Creatinine Ratio 11, Glucose Level 101, Calcium Level 8.2, Corrected Calcium 9.2, Total Bilirubin 1.0, Aspartate Amino Transf (AST/SGOT) 14, Alanine Aminotransferase (ALT/SGPT) 16, Alkaline Phosphatase 49, Total Protein 5.7, Albumin 2.8, Procalcitonin 0.49, Vancomycin Level Trough 28.4 01/09/21 05:56: Glucometer 98 01/09/21 10:54: Glucometer 154 01/09/21 15:42: Glucometer 122 01/09/21 20:43: Glucometer 114 01/10/21 05:19: Glucometer 103 01/10/21 15:46: Glucometer 166 01/10/21 20:03: Glucometer 156 01/11/21 06:22: Glucometer 106 01/11/21 08:30: White Blood Count 6.6, Red Blood Count 2.93, Hemoglobin 8.6, Hematocrit 28, Mean Corpuscular Volume 94, Mean Corpuscular Hemoglobin 29, Mean Corpuscular Hemoglobin Concent 31, Red Cell Distribution Width 18.9, Platelet Count 205, Mean Platelet Volume 8.7, Immature Granulocyte % (Auto) 1, Neutrophils (%) (Auto) 69, Lymphocytes (%) (Auto) 14, Monocytes (%) (Auto) 15, Eosinophils (%) (Auto) 0, Basophils (%) (Auto) 1, Neutrophils # (Auto) 4.6, Lymphocytes # (Auto) 0.9, Monocytes # (Auto) 1.0, Eosinophils # (Auto) 0.0, Basophils # (Auto) 0.1, Immature Granulocyte # (Auto) 0.1, Sodium Level 135, Potassium Level 3.5, Chloride Level 101, Carbon Dioxide Level 25, Anion Gap 9, Blood Urea Nitrogen 13, Creatinine 1.16, Estimat Glomerular Filtration Rate > 60, BUN/Creatinine Ratio 11, Glucose Level 155, Lactic Acid Level 2.61, Calcium Level 8.5, Corrected Calcium 9.5, Magnesium Level 1.8, Total Bilirubin 0.7, Aspartate Amino Transf (AST/SGOT) 12, Alanine Aminotransferase (ALT/SGPT) 13, Alkaline Phosphatase 50, Total Protein 5.9, Albumin 2.7, Procalcitonin 0.44 01/11/21 10:50: Lactic Acid Level 1.92 01/11/21 11:21: Glucometer 111 01/11/21 16:31: Glucometer 157 01/11/21 21:30: Glucometer 147 01/12/21 06:32: Glucometer 77 01/12/21 11:38: Glucometer 126 01/12/21 16:44: Glucometer 143 01/12/21 20:07: Glucometer 130 01/13/21 05:26: White Blood Count 5.2, Red Blood Count 3.06, Hemoglobin 8.8, Hematocrit 29, Mean Corpuscular Volume 95, Mean Corpuscular Hemoglobin 29, Mean Corpuscular Hemoglobin Concent 30, Red Cell Distribution Width 18.6, Platelet Count 274, Mean Platelet Volume 8.8, Immature Granulocyte % (Auto) 2, Neutrophils (%) (Auto) 62, Lymphocytes (%) (Auto) 21, Monocytes (%) (Auto) 12, Eosinophils (%) (Auto) 2, Basophils (%) (Auto) 1, Neutrophils # (Auto) 3.2, Lymphocytes # (Auto) 1.1, Monocytes # (Auto) 0.6, Eosinophils # (Auto) 0.1, Basophils # (Auto) 0.1, Immature Granulocyte # (Auto) 0.1, Sodium Level 137, Potassium Level 3.6, Chloride Level 105, Carbon Dioxide Level 23, Anion Gap 9, Blood Urea Nitrogen 7, Creatinine 1.09, Estimat Glomerular Filtration Rate > 60, BUN/Creatinine Ratio 6, Glucose Level 100, Calcium Level 8.9, Corrected Calcium 9.9, Total Bilirubin 0.5, Aspartate Amino Transf (AST/SGOT) 14, Alanine Aminotransferase (ALT/SGPT) 13, Alkaline Phosphatase 58, B-Type Natriuretic Peptide 65.6, Total Protein 6.2, Albumin 2.8, Procalcitonin 0.27 01/13/21 07:50: D-Dimer 1.04 01/13/21 11:22: Glucometer 153 01/13/21 17:01: Glucometer 149 01/13/21 21:03: Glucometer 149 01/14/21 05:19: Glucometer 113 01/14/21 11:11: Glucometer 128 01/14/21 15:35: Glucometer 121 01/14/21 20:08: Glucometer 157 01/15/21 05:46: Glucometer 93 01/15/21 05:47: White Blood Count 5.4, Red Blood Count 3.10, Hemoglobin 9.0, Hematocrit 29, Mean Corpuscular Volume 95, Mean Corpuscular Hemoglobin 29, Mean Corpuscular Hemoglobin Concent 31, Red Cell Distribution Width 18.6, Platelet Count 306, Mean Platelet Volume 8.4, Immature Granulocyte % (Auto) 2, Neutrophils (%) ( Auto) 67, Lymphocytes (%) (Auto) 19, Monocytes (%) (Auto) 10, Eosinophils (%) (Auto) 1, Basophils (%) (Auto) 2, Neutrophils # (Auto) 3.6, Lymphocytes # (Auto) 1.0, Monocytes # (Auto) 0.5, Eosinophils # (Auto) 0.0, Basophils # (Auto) 0.1, Immature Granulocyte # (Auto) 0.1, Sodium Level 137, Potassium Level 3.7, Chloride Level 102, Carbon Dioxide Level 27, Anion Gap 8, Blood Urea Nitrogen 9, Creatinine 1.19, Estimat Glomerular Filtration Rate 59, BUN/Creatinine Ratio 8, Glucose Level 95, Calcium Level 9.0, Corrected Calcium 9.9, Total Bilirubin 0.6, Aspartate Amino Transf (AST/SGOT) 24, Alanine Aminotransferase (ALT/SGPT) 17, Alkaline Phosphatase 64, Total Protein 6.7, Albumin 2.9 01/15/21 11:04: Glucometer 116 01/15/21 15:42: Glucometer 136 01/15/21 20:20: Glucometer 173 01/16/21 05:21: Glucometer 99 01/16/21 10:47: Glucometer 125 Discharge Home Medications: Active Scripts Active Novolog (Insulin Aspart) 100 Unit/1 Ml Susp 2 Unit SQ AC 30 Days Biotene Moisturizing Mouth (Saliva Stimulant Agents Comb.3) 1 Each [place] 0 Each MM QID PRN 30 Days Allopurinol 100 Mg Tablet 100 Mg PO DAILY 30 Days Pantoprazole Sodium 40 Mg Tablet.dr 40 Mg PO BID 30 Days Trazodone HCl 50 Mg Tablet 50 Mg PO HS 30 Days Gabapentin 100 Mg Capsule 100 Mg PO BID 30 Days Diltiazem 24Hr ER (Diltiazem HCl) 240 Mg Cap.er.24h 240 Mg PO DAILY 30 Days Fluconazole 100 Mg Tablet 100 Mg PO DAILY 3 Days Melatonin 3 Mg Tablet 6 Mg PO HS 30 Days Vitamin D3 (Cholecalciferol (Vitamin D3)) 25 Mcg Tablet 25 Mcg PO DAILY 30 Days B[place]reauxs (Zinc Oxide) 28 Gm Oint 0 Gm TOP NEEDED PRN 30 Days Oxyir Tablet (Oxycodone HCl) 5 Mg Tab 5 Mg PO Q8H PRN Oxyir Tablet (Oxycodone HCl) 5 Mg Tab 5 Mg PO HS Reported Vitamin B-12 (Cyanocobalamin (Vitamin B-12)) 250 Mcg Tablet 250 Mcg PO DAILY Simvastatin 40 Mg Tablet 40 Mg PO HS Tylenol Arthritis (Acetaminophen) 650 Mg Tablet.er 650 Mg PO Q6H PRN Flomax (Tamsulosin HCl) 0.4 Mg Cap 0.4 Mg PO DAILY Trelegy Ellipta 100-62.5-25 (Fluticasone/Umeclidin/Vilanter) 1 Each Blst.w.dev 1 Each IH DAILY Flonase Allergy Relief (Fluticasone Propionate) 9.9 Ml [place].susp 1 [place] NS DAILY Finasteride 5 Mg Tablet 5 Mg PO DAILY Vitamin C (Ascorbic Acid) 500 Mg Capsule 1,000 Mg PO BID TAKES 2 (500MG) CAPS Iprat-Albut 0.5-3(2.5) mg/3 ml (Ipratropium/Albuterol Sulfate) 3 Ml Ampul.neb 3 Ml IH Q6H PRN Instructions to patient/family Please see electronic discharge instructions given to patient. Diagnosis/Problems Diagnosis/Problems (1) COVID-19 (2) RICHY on CPAP (3) Obesity (4) Diabetes (5) Hypertension (6) Edema (7) Neuropathy (8) Anemia (9) Advanced age (10) Gout DEANNA BOO DO Jan 16, 2021 11:19
--- NOTE | 2021-01-16 12:39 | Physical Therapy Daily Note ---
PT Daily Note-Current Subjective Patient in shower pre tx with OT, has no complaints of pain, will be co-treating with OT due to poor patient mobility, strength, endurance, pain with activity, coordinate UE and LE during activity, safety and reduce risk of falls. Appearance Patient in WC at bedside post tx with nurse call, phone, tray, all needs met. Mental Status Patient Orientation: Person, Place, Situation Attachments: Oxygen Transfers SCALE: Activities may be completed with or without assistive devices. 5-Bhcwabxjnc-zelfjvb completes the activity by him/herself with no assistance from a helper. 5-Set-up or Clean-up Assistance-helper sets up or cleans up; patient completes activity. [place] assists only prior to or following the activity. 4-Supervision or Touching Assistance-helper provides verbal cues and/or touching/steadying and/or contact guard assistance as patient completes activity. Assistance may be provided throughout the activity or intermittently. 3-Partial/Moderate Assistance-helper does LESS THAN HALF the effort. [place] lifts, holds or supports trunk or limbs, but provides less than half the effort. 2-Substantial/Maximal Assistance-helper does MORE THAN HALF the effort. [place] lifts or holds trunk or limbs and provides more than half the effort. 3-Lntcallgn-pfpths does ALL the effort. Patient does none of the effort to complete the activity. Or, the assistance of 2 or more helpers is required for the patient to complete the activity. If activity was not attempted, code reason: 7-Patient Refused. 9-Not Applicable-not attempted and the patient did not perform the activity before the current illness, exacerbation or injury. 10-Not Attempted due to Environmental Limitations-(lack of equipment, weather restraints, etc.). 88-Not Attempted due to Medical Conditions or Safety Concerns. Roll Left & Right (QC): 6 Sit to Lying (QC): 3 Lying to Sitting/Side of Bed(Q: 3 Sit to Stand (QC): 2 Chair/Euf-cp-Fuyvj Xfer(QC): 2 Toilet Transfer (QC): 2 Car Transfer (QC): 1 Patient performs bed mobility with independence, supine <-> sit min assist, sit <-> stand max assist, transfers min assist (sometimes uses a sit to stand machine which is dependent), car transfer dependent Weight Bearing Full Weight Bearing Full Weight Bearing Gait Training Distance: 6'x3 Walk 10 feet (QC): 88 Walk 50 ft with 2 Turns(QC): 88 Walk 150 ft (QC): 88 Walking 10ft/uneven surface-QC: 88 Gait Assistive Device: Parallel Bars Patient ambulates 6' in the parallel bars with min assist, WC follow, takes short steps, very little foot clearance Wheelchair Training Does the Pt Use a Wheelchair?: Yes Wheel 50 ft with 2 turns (QC): 4 Wheel 150 ft (QC): 88 Type of Wheelchair: Manual 120'x2 Stair Training 1 Step (curb) (QC): 88 4 Steps (QC): 88 12 Steps (QC): 88 Balance Picking up an Object (QC): 88 Treatments PT performed bed mobility and transfers, ambulation, WC mobility, assisted with standing and positioning and safety during dressing and bandage changing, OT worked on ADL's, UE positioning and safety during activity Assessment Current Status: Poor Progress Patient has just started taking steps again in the parallel bars. He fatigues very quickly, needs frequent rest breaks. PT Short Term Goals Short Term Goals Time Frame: Dec 11, 2020 Roll Left & Right: 4 (met) Sit to lyin (met) Lying to sitting on side of be: 4 (met) Sit to stand: 3 Chair/bmv-aw-raoes transfer: 3 Walk 10 feet: 3 Walk 50 feet with two turns: 3 PT Mcfp Goals Spanish Speaking Babysitter Goals PT Spanish Speaking Babysitter Goals Time Frame: Jan 01, 2021 Roll Left & Right (QC): 6 Sit to Lying (QC): 6 Lying-Sitting on Side/Bed(QC): 6 Sit to Stand (QC): 6 Chair/Cot-iq-Ytxkf Xfer(QC): 6 Toilet Transfer (QC): 6 Car Transfer (QC): 6 Does the Patient Walk: No and Walking Goal IS indicated Walk 10 feet (QC): 6 Walk 50ft with 2 Turns (QC): 6 Walk 150 ft (QC): 6 Walking 10ft on Uneven Surface: 4 1 Step (curb) (QC): 4 4 Steps (QC): 4 12 Steps (QC): 4 Picking up an Object (QC): 5 Does the Pt use WC or Scooter?: No Wheel 50 feet with 2 turns (QC: 9 Wheel 150 feet: 9 PT Plan Problem List Problem List: Activity Tolerance, Functional Strength, Safety, Balance, Gait, Transfer, Bed Mobility, ROM Treatment/Plan Treatment Plan: Continue Plan of Care Treatment Plan: Bed Mobility, Education, Functional Activity Erick, Functional Strength, Group Therapy, Gait, Safety, Therapeutic Exercise, Transfers Treatment Duration: Jan 01, 2021 Frequency: At least 5 of 7 days/Wk (IRF) Estimated Hrs Per Day: Other (see notation) Patient and/or Family Agrees t: Yes Safety Risks/Education Patient Education: Gait Training, Transfer Techniques, Correct Positioning, W/C Management, Safety Issues Teaching Recipient: Patient Teaching Methods: Demonstration, Discussion Response to Teaching: Reinforcement Needed Time/GCodes Time In: 1000 Time Out: 1100 Total Billed Treatment Time: 60 Total Billed Treatment 1 visit FA 60' co-treated with OT for 45' JENSEN AMBRIZ PT Jan 16, 2021 12:39
[2021-01-16 13:00] VITALS: BP 114/75
--- NOTE | 2021-01-16 14:57 | Occupational Ther Daily Note ---
OT Current Status-Daily Note Subjective No pain reported. Mental Status/Objective Patient Orientation: Person, Place, Time, Situation ADL-Treatment Therapy Code Descriptions/Definitions Functional [place] Measure: 0=Not Assessed/NA 4=Minimal Assistance 1=Total Assistance 5=Supervision or Setup 2=Maximal Assistance 6=Modified [place] 3=Moderate Assistance 7=Complete IndependenceSCALE: Activities may be completed with or without assistive devices. 2-Eqxjgseesv-hnajaym completes the activity by him/herself with no assistance from a helper. 5-Set-up or Clean-up Assistance-helper sets up or cleans up; patient completes activity. [place] assists only prior to or following the activity. 4-Supervision or Touching Assistance-helper provides verbal cues and/or touching/steadying and/or contact guard assistance as patient completes activity. Assistance may be provided throughout the activity or intermittently. 3-Partial/Moderate Assistance-helper does LESS THAN HALF the effort. [place] lifts, holds or supports trunk or limbs, but provides less than half the effort. 2-Substantial/Maximal Assistance-helper does MORE THAN HALF the effort. [place] lifts or holds trunk or limbs and provides more than half the effort. 9-Ngwdlajzj-dgkjaf does ALL the effort. Patient does none of the effort to complete the activity. Or, the assistance of 2 or more helpers is required for the patient to complete the activity. If activity was not attempted, code reason: 7-Patient Refused. 9-Not Applicable-not attempted and the patient did not perform the activity before the current illness, exacerbation or injury. 10-Not Attempted due to Environmental Limitations-(lack of equipment, weather restraints, etc.). 88-Not Attempted due to Medical Conditions or Safety Concerns. Eating (QC): 6 Oral Hygiene (QC): 5 Shower/Bathe Self (QC): 3 Upper Body Dressing (QC): 4 Lower Body Dressing (QC): 1 (With use of sit-stand lift) On/Off Footwear: 1 Toileting Hygiene (QC): 1 (Pt. incontinent of bowel in shower.) Toilet Transfer (QC): 7 Other Treatment Pt. seen for therapy this date. Transferred into shower via sit-stand lift. PT came into assist with co-treatment due to low endurance and need of skilled assistance. OT completed ADL training, UE activity, sequencing and hand placement in parallel bars while PT focused on mobility, sit-insole buffer bars, and foot placement during ambulation. After ADLs, pt. transferred to wheelchair via sit-stand lift. Pt. taken to therapy gym. Stood x 2 in parallel bars with max x 2 for sit-stand. Once pt. standing, he was able to ambulate with min assist. Please see PT note for distance ambulated. Pt. up in therapy gym with PT after OT session. All needs met. Education OT Patient Education: Correct positioning, Modified ADL techniques, Progress toward Goal/Update tx plan, Purpose of tx/functional activities, Reviewed precautions, Rehab process, Transfer techniques Teaching Recipient: Patient Teaching Methods: Demonstration, Discussion Response to Teaching: Verbalize Understanding, Return Demonstration OT Short Term Goals Short Term Goals Time Frame: Dec 11, 2020 Eatin Oral hygiene: 88 Toileting hygiene: 2 Shower/bathe self: 3 Upper body dressin Lower body dressin Putting on/taking off footwear: 6 OT Residential Goals Residential Goals Time Frame: Dec 25, 2020 Eating (QC): 6 Oral Hygiene (QC): 6 Toileting Hygiene (QC): 5 Shower/Bathe Self (QC): 5 Upper Body Dressing (QC): 6 Lower Body Dressing (QC): 4 On/Off Footwear (QC): 6 Additional Goals: 1-Demonstrate ADL Tasks, 2-Verbalize Understanding, 3-Im proveStrength/Erick 1=Demonstrate adherence to instructed precautions during ADL tasks. 2=Patient will verbalize/demonstrate understanding of assistive devices/modifications for ADL. 3=Patient will improve strength/tolerance for activity to enable patient to perform ADL's. OT Education/Plan Problem List/Assessment Assessment: Decreased Activ Tolerance, Decreased UE Strength, Dependent Transfers, Impaired Bed Mobility, Impaired Funct Balance, Impaired I ADL's, Im paired Self-Care Skills, Restricted Funct UE ROM Discharge Recommendations Plan/Recommendations: Continue POC Therapy Discharge Recommendati: 24 Hour Supervision, Post Acute OT Treatment Plan/Plan of Care Treatment,Training & Education: Yes Patient would benefit from OT for education, treatment and training to promote independence in ADL's, mobility, safety and/or upper extremity function for ADL's. Plan of Care: ADL Retraining, Caregiver Training, Functional Mobility, Group Exercise/Act as Ind, UE Funct Exercise/Act Treatment Duration: Dec 25, 2020 Frequency: Modified Program (IRF) Estimated Hrs Per Day: 1.5 hours per day Agreement: Yes Rehab Potential: Fair Time/GCodes Start Time: 09:30 Stop Time: 10:45 Total Time Billed (hr/min): 75 Billed Treatment Time 0037-8512 1, ADL x 30minutes [id number] ADL x 45minutes- Co-treatment with PT. Please see above note for designated roles. CAMILA SINCLAIR OT Jan 16, 2021 14:57
--- NOTE | 2021-01-16 15:06 | Therapy Team Discharge Summary ---
Therapy Discharge Summary Discharge Recommendations Date of Discharge Jan 16, 2021 at 13:58 Therapy D/C Recommendations: 24 hr Supervision, [facility] (TC[facility]) Occupational Therapy Pt. has been seen by Occupational therapy to increase overall strength and independence with daily tasks. Pt. has had complicated course in hospital, with different medical changes. He only met goal of eating. Required max assist, and even use of sit-stand lift at times for transfers and mobility. Pt. incontinent at times of bowel and bladder. SBA to don shirt but requires max/dependent assist to don shorts. Pt. discharged to snf facility to continue treatment for strengthening and overall endurance. Equipment needs to be determined at that facility. Decreased Activ Tolerance, Decreased UE Strength, Dependent Transfers, Impaired Bed Mobility, Impaired Funct Balance, Impaired I ADL's, Impaired Self-Care Skills, Restricted Funct UE ROM PT Correction Goals Adhesion Tester Goals PT Correction Goals Time Frame: Jan 01, 2021 Roll Left to Right (QC): 6 Sit to Lying (QC): 6 Lying-Sitting on Side/Bed(QC): 6 Sit to Stand (QC): 6 Chair/Gpy-eo-Utlbr Xfer(QC): 6 Car Transfer (QC): 6 Does the Patient Walk: No and Walking Goal IS indicated Walk 10 feet (QC): 6 Walk 10ft-Uneven Surface(QC): 4 Walk 50ft with 2 Turns (QC): 6 Walk 150 ft (QC): 6 Does the Pt use WC or Scooter?: No Wheel 50 feet with 2 turns (QC: 9 1 Step (curb) (QC): 4 4 Steps (QC): 4 12 Steps (QC): 4 Picking up an Object (QC): 5 OT Adhesion Tester Goals Correction Goals Time Frame: Dec 25, 2020 Eating (QC): 6 (met) Oral Hygiene (QC): 6 (not met) Shower/Bathe Self (QC): 5 (not met) Upper Body Dressing (QC): 6 (not met) Lower Body Dressing (QC): 4 (not met) On/Off Footwear (QC): 6 (not met) Toileting Hygiene (QC): 5 (not met) Toilet/Commode Transfer (QC): 6 (not met) Additional Goals: 1-Demonstrate ADL Tasks, 2-Verbalize Understanding, 3- ImproveStrength/Erick 1=Demonstrate adherence to instructed precautions during ADL tasks. 2=Patient will verbalize/demonstrate understanding of assistive devices/ modifications for ADL. 3=Patient will improve strength/tolerance for activity to enable patient to perform ADL's. CAMILA SINCLAIR OT Jan 16, 2021 15:06
--- NOTE | 2021-01-16 15:13 | Therapy Team Discharge Summary ---
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 Upon evaluation patient performed bed mobility with max assist, sit to lying with mod assist, sit to supine with max assist, dependent with sit to stand and transfers. Patient has been performing bed mobility and transfer training, balance and endurance training, functional strengthening, gait training, and education. Patient has made some progress but did not meet any of his half-way goals. Now, patient performs bed mobility with independence, supine <-> sit min assist, sit <-> stand max assist, transfers min assist (sometimes uses a sit to stand machine which is dependent), car transfer dependent, ambulates 6' in the parallel bars with min assist, and can propel a manual WC 120' with SBA. Patient was discharged from this facility today and will be discharged from PT at this time. Occupational Therapy Decreased Activ Tolerance, Decreased UE Strength, Dependent Transfers, Impaired Bed Mobility, Impaired Funct Balance, Impaired I ADL's, Impaired Self-Care Skills, Restricted Funct UE ROM PT Shelter Goals Shelter Goals PT Compliance Paralegal Goals Time Frame: Jan 01, 2021 Roll Left to Right (QC): 6 Sit to Lying (QC): 6 Lying-Sitting on Side/Bed(QC): 6 Sit to Stand (QC): 6 Chair/Ngd-po-Ciuuv Xfer(QC): 6 Car Transfer (QC): 6 Does the Patient Walk: No and Walking Goal IS indicated Walk 10 feet (QC): 6 Walk 10ft-Uneven Surface(QC): 4 Walk 50ft with 2 Turns (QC): 6 Walk 150 ft (QC): 6 Does the Pt use WC or Scooter?: No Wheel 50 feet with 2 turns (QC: 9 1 Step (curb) (QC): 4 4 Steps (QC): 4 12 Steps (QC): 4 Picking up an Object (QC): 5 OT Shelter Goals Compliance Paralegal Goals Time Frame: Dec 25, 2020 Eating (QC): 6 (met) Oral Hygiene (QC): 6 (not met) Shower/Bathe Self (QC): 5 (not met) Upper Body Dressing (QC): 6 (not met) Lower Body Dressing (QC): 4 (not met) On/Off Footwear (QC): 6 (not met) Toileting Hygiene (QC): 5 (not met) Toilet/Commode Transfer (QC): 6 (not met) Additional Goals: 1-Demonstrate ADL Tasks, 2-Verbalize Understanding, 3- ImproveStrength/Erick 1=Demonstrate adherence to instructed precautions during ADL tasks. 2=Patient will verbalize/demonstrate understanding of assistive devices/modifications for ADL. 3=Patient will improve strength/tolerance for activity to enable patient to perform ADL's. JENSEN AMBRIZ PT Jan 16, 2021 15:13
== END 2021-01-16 13:58 | disposition swing bed (61) | DRG 91 ==
PROVIDERS: ADMIT Internal Medicine; ATTEND Internal Medicine
DX: G72.81 Critical illness myopathy (principal); A41.9 Sepsis, unspecified organism; J18.9 Pneumonia, unspecified organism; E87.2 Acidosis; R44.3 Hallucinations, unspecified; B94.8 Sequelae of other specified infectious and parasitic diseases; I11.0 Hypertensive heart disease with heart failure; I50.9 Heart failure, unspecified; G47.33 Obstructive sleep apnea (adult) (pediatric); E11.40 Type 2 diabetes mellitus with diabetic neuropathy, unspecified; I48.0 Paroxysmal atrial fibrillation; M10.9 Gout, unspecified; R60.0 Localized edema; E55.9 Vitamin D deficiency, unspecified; E78.00 Pure hypercholesterolemia, unspecified; M19.91 Primary osteoarthritis, unspecified site; E66.9 Obesity, unspecified; D64.9 Anemia, unspecified; Z87.01 Personal history of pneumonia (recurrent); Z87.891 Personal history of nicotine dependence; Z68.32 Body mass index [BMI] 32.0-32.9, adult; Z99.81 Dependence on supplemental oxygen; Z79.4 Long term (current) use of insulin; Z79.01 Long term (current) use of anticoagulants; Z79.82 Long term (current) use of aspirin; Z79.52 Long term (current) use of systemic steroids; Z79.1 Long term (current) use of non-steroidal anti-inflammatories (NSAID); Z79.891 Long term (current) use of opiate analgesic
CPT/HCPCS: 36415; 71045; 73620; 76937; 80053; 80202; 81000; 82274; 82805; 82962; 83540; 83605; 83735; 83880; 84145; 84550; 85007; 85025; 85027; 85379; 86850; 86900; 86901; 86920; 87040; 87081; 87449; 87899; 93005; 93306; 94640; 94760; 94761